=== PATIENT | male | born 1945 | race Caucasian/White ===

== ENCOUNTER 2016-10-10 09:31 | Inpatient (IN) | payer OTHER, MEDICARE ==
[~2016-10-10] VITALS: Ht 170.2 cm; Wt 147.2 kg
[2016-10-10] VITALS (39 sets, daily range): BP systolic 91–161; BP diastolic 39–65; PULSE 37–83; TEMP 36.6–36.8; O2SAT 87–100; BMI 48.0
[~2016-10-10 09:31] MED LIST: ACET-1311 PO; ALBUAER INH; ALL100 PO; ARNI60; ASPI81TA28 PO; CALC667C4 PO; CINA0.42 PO; DIGO0.122 PO; GABA10PO PO; INSUINJ4 SQ; MULT-513 PO; NVLGI SC; OXGN; POLY335025 PO; SIMV40TA4 PO; WARF5TAB90 PO; [UNRECOGNIZED DRUG - CODE] IV; [UNRECOGNIZED DRUG - OTHER] IV; [UNRECOGNIZED DRUG - OTHER] IV
--- NOTE | 2016-10-10 10:38 | DIAGNOSTIC IMAGING REPORT ---
CHEST ONE VIEW PORTABLE CLINICAL HISTORY: Fever. Weakness. COMPARISON STUDY: Chest radiograph June 28, 2015. FINDINGS: A vascular stent projecting over the right upper hemithorax is again noted. Elevation of the right hemidiaphragm is unchanged. Linear right basilar opacity is suggestive of atelectasis. Mild left basilar opacity favors atelectasis. Cardiomegaly is unchanged. There is no evidence of pulmonary edema. IMPRESSION: 1. No acute cardiopulmonary findings. 2. Linear bibasilar opacities which favor atelectasis Electronically signed by: Adin Mari M.D. 10/10/2016 10:36 AM
[2016-10-10] MEDS ORDERED: HEPARIN SOD (PORCINE) 1000 UNIT/ML 10 ML VIAL IV SCH (10:45)
[2016-10-10] MEDS ORDERED: INSU1.2I SC (10:49)
[2016-10-10] MEDS ORDERED: DOCU-94 PO (10:49)
[2016-10-10 10:53] LABS: BASO % 0.5 %; BASO ABS # 0.04 K/uL (0-0.2); COMPLETE YES; EOS % 3.4 %; HEMATOCRIT 33.8 % (42-52); IG% 0.1 %; LYMPH % 14.4 %; LYMPH ABS # 1.19 K/uL (1.2-3.4); MEAN CORPUSCULAR HEMOGLOBIN 30.1 pg (25-34); MEAN CORPUSCULAR HGB CONC 31.4 g/dl (32-36); MEAN PLATELET VOLUME 10.1 fL (7.4-10.4); MONO % 6.8 %; NEUT % 74.8 %; PLATELET COUNT 192 K/uL (130-400); RED BLOOD COUNT 3.52 M/uL (4.7-6.1); WHITE BLOOD COUNT 8.24 K/uL (4.8-10.8)
[2016-10-10 11:00] LABS: PROTHROMBIN TIME (PATIENT) 21.9 SECONDS (9.0-12.0)
[2016-10-10 11:03] LABS: ISTAT CREATININE 10.1 mg/dl (0.6-1.3); ISTAT HEMOGLOBIN 11.2 g/dl (14.0-18.0); ISTAT IONIZED CALCIUM 0.98 mmol/l (1.12-1.32)
[2016-10-10 11:36] LABS: ALKALINE PHOSPHATASE 57 U/L (45-117); ALT/SGPT 33 U/L (12-78); AST/SGOT 20 U/L (15-37); BLOOD UREA NITROGEN 85 mg/dl (7-18); BUN/CREATININE RATIO 7.7 (10-20); CALCIUM 8.9 mg/dl (8.5-10.1); CARBON DIOXIDE 31 mmol/L (21-32); CHLORIDE 93 mmol/L (98-107); CKMB/CK RATIO 3.6 (0-3.0); GLUCOSE 129 mg/dl (70-99); MAGNESIUM 2.7 mg/dl (1.8-2.4); POTASSIUM 5.8 mmol/L (3.5-5.1); SODIUM 136 mmol/L (136-145)
--- NOTE | 2016-10-10 11:36 | NEPHROLOGY CONSULTATION ---
DATE OF CONSULTATION: 10/10/2016 SUBJECTIVE: Mr. Cabrera is a 71-year-old gentleman well known to me. For the past year or so, I have been managing his outpatient dialysis care and providing a certain amount of his primary care needs. Mr. Cabrera has a longstanding history of poorly controlled adult onset diabetes mellitus. His diabetes has been associated with diabetic retinopathy, generalized atherosclerotic cardiovascular disease, and nephropathy which is presumably multifactorial. Additionally, he has a history of atrial fibrillation for which he has been on Coumadin therapy. He also has a history of presumed autonomic insufficiency. In the past, he has been on midodrine to help support his blood pressure. Mr. Cabrera has a history of chronic pulmonary disease. At least in part that is caused by or aggravated by his morbid obesity. He has a degree of cor pulmonale. His end-stage renal disease is likely multifactorial and related to pulmonary hypertension related to his pulmonary disease, as well as a general cardiorenal syndrome. He has been on maintenance dialysis since 2007, he was switched to my care about a year ago. Complications of his end-stage renal disease have included a secondary anemia, which is well controlled with erythrocyte stimulating agents. Additionally, he has secondary hyperparathyroidism which has been relatively well controlled as well. In the past, he has had multiple problems and complications of lower extremity wounds. He has been seen regularly in the wound clinic of [facility] for these lower extremity wounds. Recently, he seems to have been reasonably stable. He has not had an admission to this hospital for nearly 2 years. At one point it was suspected that he may have temporal arteritis when had marked decrease in his vision unilaterally. A temporal artery biopsy; however, did not support that diagnosis. His sedimentation rate also was only about 60. Mr. Cabrera has been reasonably stable over the course of the past year. He has had some occasional difficulties with vascular access and has been seen by Dr. Aguirre for reevaluation of his AV fistula. However, it has been stable of late with adequate flows to support his dialysis treatments. Dialysis treatments are uncomplicated. He has been fairly compliant with his diet therapy. He has also been reasonably compliant with medication therapy, although there have been some occasional periods where his pharmacy provider was late in getting his medications. With the above background, Mr. Cabrera was in his usual state of health. About a week ago, Dr. Gracia switched his insulin from Lantus insulin 50 units b.i.d. to Toujeo. It was the same dose of insulin. However, the delivery system was something that Mr. Cabrera was not used to. For at least 3 days he was not getting his regular dose of his long acting insulin. He was monitoring his blood sugars and using a sliding scale with NovoLog. Still, blood sugars were quite elevated. He denied having any true symptoms of hypoglycemia. His son figured out his insulin system for him about 24 hours ago, but nonetheless, Mr. Cabrera has remained somewhat weak. He denies polydipsia. He has minimal urine output, if any at all. Nonetheless, this morning, he felt weak, had a difficult time transferring into his wheelchair and was brought to the Emergency Room by family members. In the Emergency Room, he was awake and alert and capable of giving a history. Of note, is the fact that not infrequently when he presented to the dialysis unit, he did have a significant bradycardia. That would improve with his dialysis treatments. His serum potassium as an outpatient when measured on a routine basis has generally been within a very acceptable range. Other dialysis laboratory parameters have indicated that his hemoglobin is in a very acceptable range of 11.2. His phosphate is fairly controlled. As noted, his potassium is fairly controlled as well. His serum albumin is 3.9 g/dL, which is reasonably good for a dialysis patient, although slightly below where we would prefer to see it (4.0 g/dL). His hepatitis C antibody is negative. Hepatitis B surface antibody is measurable, and hepatitis B surface antigen is negative. Mr. Cabrera has also had intermittent urinary discharge of some bloody fluid. He is seen regularly by urology. He is due for a cystoscopy early this month. He does have a history of bladder cancer and has had a TURB in the past. Regular home medications include allopurinol 100 mg daily, aspirin 81 mg daily, calcium acetate 667 mg three with each meal, Coumadin, usually in the dose of 5 mg daily, but varied to keep his INR between 2 and 3, he takes Diatx Zn 1 daily, digoxin 0.125 mcg on alternate days (usually Monday, , and Monday), gabapentin 100 mg at bedtime, long acting insulin, currently Toujeo 50 units twice daily, NovoLog via sliding scale, polyethylene glycol 17 grams daily p.r.n., senna with docusate sodium 1 daily, Sensipar 60 mg daily, and simvastatin 40 mg at bedtime. ALLERGIES: No known medication allergies. His dialysis treatments are generally uncomplicated. He is dialyzed 3 times a week for 4 hours and 30 minutes on an Optiflux 200 dialyzer with a blood flow rate of 450 and dialysate flow rate of 800 mL per minute. His dialysate is a 2 potassium, 2 calcium, 1 magnesium bath with a sodium of 135 and bicarbonate of 37. His heparin is 2000 units IV at the beginning of each dialysis treatment. He gets Venofer 50 mg IV push once weekly. He is also on Mircera, which he gets approximately every 4 weeks. The remainder of his review of systems is unremarkable other than noted above, and the fact that he does have significant seborrheic dermatitis with flaky skin. He has a lot of dry skin on his lower extremities as well. PHYSICAL EXAMINATION: GENERAL: On physical examination when seen, Mr. Cabrera appeared as a morbidly obese, chronically ill gentleman who did not appear to be in any particular distress when seen. However, he had a dramatic weakness when he attempted to transfer from chair to bed. VITAL SIGNS: His heart rate when he presented was 39 and seemingly regular, but once on a monitor it varied from 40-55. (An EKG suggested he is in a junctional bradycardia, although it still may be a slow atrial fibrillation). His blood pressure 101/37. His respiratory rate is 20, with a pulse ox of 98% on 3 liters of oxygen via nasal cannula. SKIN: Shows normal skin turgor. He has some patchy irritated areas and minimally denuded areas on his lower extremities. He has a right upper arm AV fistula that seems to be functioning reasonably well. LYMPHATICS: Show no palpable lymphadenopathy. HEAD: Normal. EYES: Grossly normal. The ocular fundi were not examined. Extraocular movements are intact. EARS, NOSE, MOUTH AND THROAT: Unremarkable. His oral mucous membranes are moist. NECK: Supple. He has no obvious jugular venous distention, but the exam is limited by his body habitus. I hear no carotid bruits and there is no thyromegaly. CHEST: Clear to auscultation. Diaphragms are elevated related to his body habitus and positioning when examined. Breath sounds are diminished at the bases, but otherwise clear with no wheezes, rales or rhonchi. CARDIAC: Shows distant sounds. His rhythm seems regular and slow. There are no definite murmurs or gallops. ABDOMEN: Morbidly obese, it is nontender. There is no organomegaly or mass, but again the exam is limited by his body size. EXTREMITIES: Show no cyanosis or clubbing. He has trace lower extremity edema. Peripheral pulses are difficult to feel in his feet. He has changes of venous stasis dermatitis. He has a right upper arm AV fistula. NEUROLOGIC: Shows him to be globally weak, but there are no lateralizing changes. No laboratory work is available to date. ASSESSMENT: Mr. Cabrera is a 71-year-old gentleman with end-stage renal disease who has been on dialysis for about 8 years. He has insulin-dependent type 2 diabetes mellitus. There is a question of an autonomic neuropathy which he probably does have. He has atrial fibrillation, but frequently has bouts of a slow and more regular rhythm, as he seems to have this morning. This has never been documented to be related to hyperkalemia, although that has been suspected in the past. He presents now with generalized weakness after changing his insulin from Lantus to Toujeo. That was done with him getting essentially the same amount of long acting insulin. He has been monitoring his blood sugars and notes that they are higher. I suspect that that has a great deal to do with his current weakness. PLAN: Routine laboratory work. He should be placed on a monitored bed to make sure that he returns to his usual rate and rhythm. Will arrange for him to have his routine dialysis treatment today. He should continue on his regular medications, as listed above. No other suggestions at this point, but I will follow him with you and make further suggestions as his clinical course unfolds.
[2016-10-10] MEDS ORDERED: HYDROmorphone INJ 1 MG/ML SYR IV PRN (13:15)
[2016-10-10] MEDS ORDERED: ACETAMINOPHEN 325 MG TAB PO PRN (13:15)
[2016-10-10] MEDS ORDERED: ONDANSETRON INJ 2 MG/ML 2 ML VIAL IV PRN (13:15)
[2016-10-10] MEDS ORDERED: DOPamine 400MG / D5W 400 MG IV SCH (13:45)
--- NOTE | 2016-10-10 13:49 | EMERGENCY ROOM VISIT NOTE ---
History Report prepared by Arelyibberyl: Ashley Mcgovern Under the Supervision of: Dr. Jose Dc D.O. First contact with patient: 09:47 Chief Complaint: WEAKNESS Stated Complaint: WEAKNESS History of Present Illness The patient is a 71 year old male who presents to the Emergency Room with complaints of worsening weakness for the past 3 days. He is a dialysis patient and gets dialyzed on Mondays, Wednesdays and Fridays and comes to the ED from dialysis this morning, accompanied by Dr. Flaherty of Nephrology and his two sons. The patient was not able to be dialyzed because of his weakness and the last time he was dialyzed was Monday, 3 days ago. His sons report he admitted to feeling "dehydrated" last night. This morning the patient states "I cannot walk. I just don't have it in me". He reports for the past few days, his weakness has been worsening. He reports "I feel like I have no strength". According to Dr. Flaherty, he was switched from Lantus to Toujeo recently. The patient denies any recent fevers, cough or rhinorrhea. He denies any chest pain but admits to some chronic shortness of breath and reports he uses 3 Liters of Oxygen at home. The patient states his blood sugars were high yesterday, around 220. This morning his BSG was around 170. He notes his last bowel movement was last night and normal. The patient denies any headache, change in vision, nausea , vomiting, diarrhea, pain with urination, and melena. 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 A total of 10 systems reviewed and were otherwise negative. Past Medical & Surgical Medical Problems: (1) Atrial fibrillation with slow ventricular response (2) CONGESTIVE HEART FAILURE NOS (3) DIAB W OTH SPEC MANIFEST, TYPE II OR UNSPEC TYPE, NOT UNCNTR (4) Diabetes (5) Diabetic foot ulcer (6) Diabetic peripheral neuropathy associated with type 2 diabetes mellitus (7) Edema (8) Loss of sensation (9) MAL [place]ADE[place] BLADDER-TRIGONE (10) MORBID OBESITY (11) Obstructive sleep apnea (12) Peripheral vascular disease (13) RENAL FAILURE NOS Family History Patient reports no known family medical history. Social History Smoking Status: Never Smoker Drug Use: none Marital Status: Housing Status: lives with family Occupation Status: retired Current/Historical Medications Scheduled Allopurinol (Zyloprim *), 100 MG PO DAILY Aspirin (Aspirin Ec), 81 MG PO DAILY Calcium Acetate (Phoslo 667 Mg), 2,001 MG PO TIDM Cinacalcet (Sensipar), 60 MG PO DAILY Darbepoetin (Aranesp Albumin Free), every monday x 3 dos Digoxin (Lanoxin), 0.125 MG PO 3XWK Docusate Sodium (Colace), 1 CAP PO QAM Gabapentin (Bulk) (Gabapentin), 100 MG PO DAILY Insulin Aspart (Novolog), 0 SC WM Insulin Glargine (Toujeo Solostar), 60 UNITS SC BID Multivitamins/Minerals (Mvi With Minerals), 1 TAB PO DAILY Oxygen (Oxygen), 3 LITERS NA CONTINOUS Paricalcitol (Zemplar Inj), 2 MCG IV 3 TIMES A WEEK Polyethylene Glycol 3350 (Miralax), 17 GM PO 3XWK Simvastatin (Zocor), 40 MG PO QPM Warfarin Sodium (Coumadin), 5 MG PO HS Scheduled PRN Acetaminophen (Tylenol), 650 MG PO Q4 PRN for Mild Pain Calcium Acetate (Phoslo 667 Mg), 1-2 CAP PO UD PRN for WITH SNACKS Allergies Coded Allergies: No Known Allergies (Verified , 10/10/16) Physical Exam Vital Signs Date Time Temp Pulse Resp B/P Pulse Ox O2 Delivery O2 Flow Rate FiO2 10/10/16 12:42 39 14 132/39 98 Nasal Cannula 3.0 10/10/16 12:02 97 Nasal Cannula 3.0 10/10/16 11:40 41 19 98/35 97 Nasal Cannula 3.0 10/10/16 11:11 40 15 10/10/16 11:06 39 15 10/10/16 11:01 41 22 10/10/16 10:59 106/35 10/10/16 10:56 43 19 10/10/16 10:51 41 15 10/10/16 10:46 45 20 10/10/16 10:41 37 20 10/10/16 10:37 100/34 1/2/17 10:36 39 10/10/16 10:36 46 19 10/10/16 10:31 39 18 10/10/16 10:26 41 14 10/10/16 10:22 97/35 10/10/16 10:21 39 15 98 10/10/16 10:20 79/32 10/10/16 10:17 41 18 101/37 10/10/16 10:16 40 19 10/10/16 10:11 39 12 10/10/16 10:09 101/37 10/10/16 09:37 39 20 116/43 98 Nasal Cannula 3.0 Physical Exam GENERAL: The patient is sitting up in bed, alert, ill-appearing, disheveled, well nourished, no distress, non-toxic and on nasal canula. EYE EXAM: normal conjunctiva, PERRL and EOM's intact OROPHARYNX: no exudate, no erythema, lips, buccal mucosa, and tongue normal and mucous membranes are moist NECK: supple, no nuchal rigidity, no adenopathy, non-tender LUNGS: Course lung sounds at the bases. Normal chest wall mechanics HEART: Bradycardic heart rate with systolic ejection murmur, S1 normal and S2 normal ABDOMEN: abdomen soft, non-tender, normo-active bowel sounds, no masses, no rebound or guarding. BACK: Back is symmetrical on inspection and there is no deformity, no midline tenderness, no CVA tenderness. SKIN: no rashes and no bruising UPPER EXTREMITIES: Fistula in right upper extremity. LOWER EXTREMITIES: Scant pitting edema with ulcer on left second toe. NEURO EXAM: Normal sensorium with limited mobility, able to stand and pivot, no focal weakness or upper or lower extremities. Cranial nerves II-XII grossly intact, normal speech. No drift. Finger to nose intact. Gross sensation intact. Medical Decision & Procedures ER Provider Diagnostic Interpretation: This X-Ray was reviewed and interpreted by myself and the radiologist. CHEST ONE VIEW PORTABLE IMPRESSION: 1. No acute cardiopulmonary findings. 2. Linear bibasilar opacities which favor atelectasis Electronically signed by: Adin Mari M.D. 10/10/2016 10:36 AM Laboratory Results 10/10/16 10:35 Red Blood Count 3.52, Mean Corpuscular Volume 96.0, Mean Corpuscular Hemoglobin 30.1, Mean Corpuscular Hemoglobin Concent 31.4, Mean Platelet Volume 10.1, Neutrophils (%) (Auto) 74.8, Lymphocytes (%) (Auto) 14.4, Monocytes (%) (Auto) 6.8, Eosinophils (%) (Auto) 3.4, Basophils (%) (Auto) 0.5, Neutrophils # (Auto) 6.16, Lymphocytes # (Auto) 1.19, Monocytes # (Auto) 0.56, Eosinophils # (Auto) 0.28, Basophils # (Auto) 0.04 10/10/16 10:35 Test 10/10/16 10:35 10/10/16 10:47 10/10/16 10:51 White Blood Count 8.24 K/uL (4.8-10.8) Red Blood Count 3.52 M/uL (4.7-6.1) Hemoglobin 10.6 g/dL (14.0-18.0) Hematocrit 33.8 % (42-52) Mean Corpuscular Volume 96.0 fL (80-100) Mean Corpuscular Hemoglobin 30.1 pg (25-34) Mean Corpuscular Hemoglobin Concent 31.4 g/dl (32-36) Platelet Count 192 K/uL (130-400) Mean Platelet Volume 10.1 fL (7.4-10.4) Neutrophils (%) (Auto) 74.8 % Lymphocytes (%) (Auto) 14.4 % Monocytes (%) (Auto) 6.8 % Eosinophils (%) (Auto) 3.4 % Basophils (%) (Auto) 0.5 % Neutrophils # (Auto) 6.16 K/uL (1.4-6.5) Lymphocytes # (Auto) 1.19 K/uL (1.2-3.4) Monocytes # (Auto) 0.56 K/uL (0.11-0.59) Eosinophils # (Auto) 0.28 K/uL (0-0.5) Basophils # (Auto) 0.04 K/uL (0-0.2) RDW Standard Deviation 60.6 fL (36.4-46.3) RDW Coefficient of Variation 17.3 % (11.5-14.5) Immature Granulocyte % (Auto) 0.1 % Immature Granulocyte # (Auto) 0.01 K/uL (0.00-0.02) Prothrombin Time 21.9 SECONDS (9.0-12.0) Prothromb Time International Ratio 2.0 (0.9-1.1) Estimated GFR () 5.4 Estimated GFR (Non- 4.7 BUN/Creatinine Ratio 7.7 (10-20) Calcium Level 8.9 mg/dl (8.5-10.1) Magnesium Level 2.7 mg/dl (1.8-2.4) Total Bilirubin 0.3 mg/dl (0.2-1) Direct Bilirubin 0.1 mg/dl (0-0.2) Aspartate Amino Transf (AST/SGOT) 20 U/L (15-37) Alanine Aminotransferase (ALT/SGPT) 33 U/L (12-78) Alkaline Phosphatase 57 U/L (45-117) Total Creatine Kinase 120 U/L (39-308) Creatine Kinase MB 4.3 ng/ml (0.5-3.6) Creatine Kinase MB Ratio 3.6 (0-3.0) Total Protein 7.1 gm/dl (6.4-8.2) Albumin 3.4 gm/dl (3.4-5.0) Thyroid Stimulating Hormone (TSH) 5.380 uIu/ml (0.300-4.500) Digoxin Level 0.7 ng/ml (0.8-2.0) Bedside Lactic Acid Venous 1.66 mmol/L (0.90-1.70) Bedside Hemoglobin 11.2 g/dl (14.0-18.0) Bedside Hematocrit 33 % (42-52) Bedside Sodium 134 mEq/L (135-144) Bedside Potassium 6.0 mEq/L (3.3-5.0) Bedside Chloride 92 mEq/L (101-112) Bedside Total CO2 31 mEq/l (24-31) Anion Gap 18.0 mmol/L (16-25) Bedside Blood Urea Nitrogen 90 mg/dl (7-18) Bedside Creatinine 10.1 mg/dl (0.6-1.3) Bedside Glucose (other) 130 mg/dl (70-99) Bedside Ionized Calcium (Macarena) 0.98 mmol/l (1.12-1.32) Laboratory results per my review. ECG Indication: weakness Rate (beats per minute): 40 Rhythm: junctional (bradycardia) Findings: [facility] ED Course ED COURSE: Vital signs were reviewed and showed the patient is bradycardic. The patients medical record was reviewed The above diagnostic studies were performed and reviewed. ED treatments and interventions as stated above. 0947: The patient was evaluated in room C4. A complete history and physical examination was performed. 1145: Upon reevaluation, the patient is resting comfortably. I discussed my findings with the patient and he understands and agrees with the treatment plan. Based on the patients age, coexisting illnesses, exam and lab findings the decision to treat as an inpatient was made. The patient remained stable while under my care. The patient will be evaluated for further management. 1149: I discussed the patients case with Dr. Wiley [facility] Hospitalist. The patient will be further evaluated. Medical Decision Differential Diagnosis includes but is not limited to dehydration, stroke, anemia, hypoglycemia, hyponatremia, hypernatremia, urinary tract infection, pneumonia, bronchitis, sepsis, gastroenteritis, additional abdominal pathology, metabolic abnormalities and infections. Patient is a 71-year-old male who presents the ER for diffuse weakness associated with fluctuation in his blood sugars. He is an insulin-dependent diabetic on dialysis. Upon presentation Dr. Flaherty was at bedside. Patient notes that he has been unable to ambulate due to diffuse weakness. His blood sugars have been fluctuating for the past 48 hours. This morning they were normal in the 200s. Labs show no significant leukocytosis or anemia. His anemia does appear to be chronic. BMP shows a potassium of 5.8 along with a creatinine of 10. He is due for dialysis today. Krystina is aware of this and notified me of this. He also noted that his normal heart rate is in the 40s. Troponin was detected but not positive. He denies a chest pain shortness of breath. Heart rate is in the 30s to low 40s. He is in a junctional rhythm. He normally has A. fib. Patient has no other complaints at this time. He was monitored closely in the ER and admitted to internal medicine for diffuse weakness associated with bradycardia although this appears to be constant. I am uncertain if this is Edgar secondary to his potassium because it is not that elevated 5.8. I held on any treatment as he will need dialysis. Consults Time Called: [id number] Consulting Physician: Dr. Wiley [facility] Hospitalist Returned Call: [phone] I discussed the patients case with Dr. Wiley [facility] Hospitalist. The patient will be further evaluated. Impression Primary Impression: Weakness Additional Impressions: Hyperkalemia, Ambulatory dysfunction Scribe Attestation The scribe's documentation has been prepared under my direction and personally reviewed by me in its entirety. I confirm that the note above accurately reflects all work, treatment, procedures, and medical decision making performed by me. Departure Information Dispostion Being Evaluated By Hospitalist Referrals Sarthak Gracia M.D. (PCP) Patient Instructions A Signature Page, My [facility]
[2016-10-10] MEDS ORDERED: DOPamine 400MG / D5W 400 MG IV PRN (14:00)
--- NOTE | 2016-10-10 14:08 | History and Physical ---
History & Physical Date & Time of Service: Oct 10, 2016 at 13:26 Chief Complaint: Weakness Primary Care Physician: Sarthak Gracia M.D. History of Present Illness Source: patient, hospital records 71yo male with ESRD on HD M// at [facility], followed by Dr. Flaherty, as well as T2DM, PAD, JORJE, chronic resp failure on home O2, chronic diastolic CHF, and atrial fibrillation who presented today with significant weakness starting Monday. He was in his usual state of health until the weekend when his legs became very weak to the point of not being able to stand or walk. He normally can walk about 50-60 feet with the aid of a walker. He otherwise denies any chest pain, sob, dyspnea with exertion, orthopnea, PND, fevers, chills, sweats, sore throat , vomiting, diarrhea, myalgias, arthralgias, or recent illness(es). He denies any sick contacts. Denies any falls despite the weakness. He denies focal motor weakness of the arms or legs (does have baseline mild weakness of the left leg from childhood polio but denies any recent change in this). He has had some blurry vision in the last few days. He reports that he does NOT make any urine on a chronic basis. He takes digoxin three days a week on //Monday and has had all of his doses as prescribed. The only other change in his health was that of his insulin. His PCP recently changed his Lantus to Toujeo and he was supposed to take the latter twice daily. However, the Toujeo was in pen form and he did not know how to manipulate the pen. Therefore, he went several days this past week without any long-acting insulin. His son showed him how to use the pen and he did resume the Toujeo yesterday. FSBS's have been in the upper 100s to 200s since restarting the Toujeo. Upon ER presentation today the patient was noted to have mildly low BP and a very slow heart rate of about 40 BPM. EKG showed (my interpretation) either junctional rhythm vs a slow a. fib. At that point we were contacted for admission. Initial labs showed a serum potassium of [address] Flaherty was consulted to perform hemodialysis today. Past Medical/Surgical History PMH: 1. ESRD on HD, Mon/Mon/Monday 2. chronic diastolic CHF 3. T2DM with neuropathy 4. morbid obesity 5. PAD 6. atrial fibrillation on chronic coumadin 7. history of bladder cancer 8. chronic respiratory failure on home oxygen, 3 L 9. anemia of chronic kidney disease 10. secondary hyperparathyroidism 11. chronic lower extremity wounds 12. polio as a child affecting the left leg PSH: 1. AV fistula creation, right arm 2. history of TURBT for bladder cancer 3. history of right subclavian artery stenosis s/p stent by Dr. Aguirre Family History mother, about age 70, some form of aortic disease? also had HTN father age 88yo from acute renal failure; also had CAD w/ GA Social History Smoking Status: Never Smoker Smokeless Tobacco Use: No Alcohol Use: previous - quit 35 years ago Drug Use: none Marital Status: Housing status: lives with family (, daughter, grand-daughter, son-in-law near [place]) Occupational Status: retired Immunizations History of Influenza Vaccine: Unknown History of Tetanus Vaccine?: Unknown History of Pneumococcal: Unknown History of Hepatitis B Vaccine: Unknown Multi-Drug Resistant Organisms History of MDRO: No Allergies Coded Allergies: No Known Allergies (Verified , 10/10/16) Home Medications Scheduled Allopurinol (Zyloprim *), 100 MG PO DAILY Aspirin (Aspirin Ec), 81 MG PO DAILY Calcium Acetate (Phoslo 667 Mg), 2,001 MG PO TIDM Cinacalcet (Sensipar), 60 MG PO DAILY Darbepoetin (Aranesp Albumin Free), every monday x 3 dos Digoxin (Lanoxin), 0.125 MG PO 3XWK Docusate Sodium (Colace), 1 CAP PO QAM Gabapentin (Bulk) (Gabapentin), 100 MG PO DAILY Insulin Aspart (Novolog), 0 SC WM Insulin Glargine (Toujeo Solostar), 60 UNITS SC BID Multivitamins/Minerals (Mvi With Minerals), 1 TAB PO DAILY Oxygen (Oxygen), 3 LITERS NA CONTINOUS Paricalcitol (Zemplar Inj), 2 MCG IV 3 TIMES A WEEK Polyethylene Glycol 3350 (Miralax), 17 GM PO 3XWK Simvastatin (Zocor), 40 MG PO QPM Warfarin Sodium (Coumadin), 5 MG PO HS Scheduled PRN Acetaminophen (Tylenol), 650 MG PO Q4 PRN for Mild Pain Calcium Acetate (Phoslo 667 Mg), 1-2 CAP PO UD PRN for WITH SNACKS Review of Systems Constitutional: + fatigue, + weakness, No chills, No fever, No sweats, No weight loss Eyes: + worsening of vision (blurry for a few days), No eye pain ENT: No nasal symptoms, No sore throat Respiratory: No cough, No dyspnea on exertion, No shortness of breath, No wheezing Cardiovascular: No PND, No chest pain, No edema, No orthopnea, No palpitations Abdomen: No GI bleeding, No constipation, No diarrhea, No nausea, No pain, No vomiting Musculoskeletal: No joint pain, No muscle pain Genitourinary - Male: No penile discharge Neurologic: + numbness/tingling (chronic, feet/hands), + weakness, No balance problems Psychiatric: + depression symptoms Endocrine: + fatigue Hematologic / Lymphatic: No clotting problems Integumentary: + color change (both legs - [facility]) Physical Exam Vital Signs Date Time Temp Pulse Resp B/P Pulse Ox O2 Delivery O2 Flow Rate FiO2 10/10/16 12:42 39 14 132/39 98 Nasal Cannula 3.0 10/10/16 12:02 97 Nasal Cannula 3.0 10/10/16 11:40 41 19 98/35 97 Nasal Cannula 3.0 10/10/16 11:11 40 15 10/10/16 11:06 39 15 10/10/16 11:01 41 22 10/10/16 10:59 106/35 10/10/16 10:56 43 19 10/10/16 10:51 41 15 10/10/16 10:46 45 20 10/10/16 10:41 37 20 10/10/16 10:37 100/34 10/10/16 10:36 39 10/10/16 10:36 46 19 10/10/16 10:31 39 18 10/10/16 10:26 41 14 10/10/16 10:22 97/35 10/10/16 10:21 39 15 98 10/10/16 10:20 79/32 10/10/16 10:17 41 18 101/37 10/10/16 10:16 40 19 10/10/16 10:11 39 12 10/10/16 10:09 101/37 10/10/16 09:37 39 20 116/43 98 Nasal Cannula 3.0 General Appearance: no apparent distress, + obese Head: normocephalic, atraumatic Eyes: PERRL ENT: hearing grossly normal, TMs normal, pharynx normal Neck: supple, no adenopathy, no JVD, + thyroid abnormalities (?thyroid nodule, about 1cm?) Respiratory/Chest: lungs clear, no respiratory distress, no accessory muscle use Cardiovascular: no gallop, normal peripheral pulses, + bradycardia, + systolic murmur (2/6 LSB) Abdomen/GI: normal bowel sounds, non tender, soft, no organomegaly Back: + abnormal inspection (lipoma vs cyst left back) Extremities/Musculoskelatal: + pedal edema (trace-1+ b/l ), + pertinent finding (severe stasis changes b/l shins; right leg is modestly larger than the left leg ) Neurologic/Psych: alert, oriented x 3, + motor weakness (LLE - chronic, about 4 /5 strength; RUE, RLE, and LUE with 5/5 strength; no facial droop) Skin: + pertinent finding (shallow ulceration right wilson; small amount of nonpurulent discharge; multiple other areas of xerosis, occasional excoriation/ skin opening - on both shins) AF fistula with + thrill and bruit, right upper arm Diagnostics Laboratory Results Results Past 24 Hours Test 10/10/16 10:35 10/10/16 10:47 10/10/16 10:51 Range/Units White Blood Count 8.24 4.8-10.8 K/uL Red Blood Count 3.52 4.7-6.1 M/uL Hemoglobin 10.6 14.0-18.0 g/dL Hematocrit 33.8 42-52 % Mean Corpuscular Volume 96.0 80-100 fL Mean Corpuscular Hemoglobin 30.1 25-34 pg Mean Corpuscular Hemoglobin Concent 31.4 32-36 g/dl Platelet Count 192 130-400 K/uL Mean Platelet Volume 10.1 7.4-10.4 fL Neutrophils (%) (Auto) 74.8 % Lymphocytes (%) (Auto) 14.4 % Monocytes (%) (Auto) 6.8 % Eosinophils (%) (Auto) 3.4 % Basophils (%) (Auto) 0.5 % Neutrophils # (Auto) 6.16 1.4-6.5 K/uL Lymphocytes # (Auto) 1.19 1.2-3.4 K/uL Monocytes # (Auto) 0.56 0.11-0.59 K/uL Eosinophils # (Auto) 0.28 0-0.5 K/uL Basophils # (Auto) 0.04 0-0.2 K/uL RDW Standard Deviation 60.6 36.4-46.3 fL RDW Coefficient of Variation 17.3 11.5-14.5 % Immature Granulocyte % (Auto) 0.1 % Immature Granulocyte # (Auto) 0.01 0.00-0.02 K/uL Prothrombin Time 21.9 9.0-12.0 SECONDS Prothromb Time International Ratio 2.0 0.9-1.1 Sodium Level 136 136-145 mmol/L Potassium Level 5.8 3.5-5.1 mmol/L Chloride Level 93 98-107 mmol/L Carbon Dioxide Level 31 21-32 mmol/L Anion Gap 12.0 18.0 16-25 mmol/L Blood Urea Nitrogen 85 7-18 mg/dl Creatinine 10.00 0.60-1.40 mg/dl Estimated GFR () 5.4 Estimated GFR (Non- 4.7 BUN/Creatinine Ratio 7.7 10-20 Random Glucose 129 70-99 mg/dl Calcium Level 8.9 8.5-10.1 mg/dl Magnesium Level 2.7 1.8-2.4 mg/dl Total Bilirubin 0.3 0.2-1 mg/dl Direct Bilirubin 0.1 0-0.2 mg/dl Aspartate Amino Transf (AST/SGOT) 20 15-37 U/L Alanine Aminotransferase (ALT/SGPT) 33 12-78 U/L Alkaline Phosphatase 57 45-117 U/L Total Creatine Kinase 120 39-308 U/L Creatine Kinase MB 4.3 0.5-3.6 ng/ml Creatine Kinase MB Ratio 3.6 0-3.0 Troponin I 0.036 0-0.045 ng/ml Total Protein 7.1 6.4-8.2 gm/dl Albumin 3.4 3.4-5.0 gm/dl Digoxin Level 0.7 0.8-2.0 ng/ml Bedside Lactic Acid Venous 1.66 0.90-1.70 mmol/L Bedside Hemoglobin 11.2 14.0-18.0 g/dl Bedside Hematocrit 33 42-52 % Bedside Sodium 134 135-144 mEq/L Bedside Potassium 6.0 3.3-5.0 mEq/L Bedside Chloride 92 101-112 mEq/L Bedside Total CO2 31 24-31 mEq/l Bedside Blood Urea Nitrogen 90 7-18 mg/dl Bedside Creatinine 10.1 0.6-1.3 mg/dl Bedside Glucose (other) 130 70-99 mg/dl Bedside Ionized Calcium (Macarena) 0.98 1.12-1.32 mmol/l Microbiology Results 10/10/16 Blood Culture, Received Pending 10/10/16 Blood Culture, Received Pending Diagnostic Radiology cxr - portable: IMPRESSION: 1. No acute cardiopulmonary findings. 2. Linear bibasilar opacities which favor atelectasis EKG EKG - my interpretation - bradycardia, rate of about 40; left axis deviation; LAFB; either junctional rhythm vs slow a. fib; no acute ST changes Impression Assessment and Plan 71yo male with multiple medical problems including ESRD on HD M/W/F, T2DM, a. fib on chronic coumadin, PAD, morbid obesity, chronic respiratory failure on home O2 - presenting with severe weakness starting about 2-3 days ago. I believe that his weakness is likely related to his severe bradycardia with resulting poor cardiac output. I do not see any source of infection on exam or by way of history. 1. severe bradycardia in the setting of chronic a. fib and hyperkalemia - I cannot tell based on the monitor strips in the ER and the initial EKG if this is slow a. fib vs a junctional rhythm. [id number], I believe that his symptoms are from the severe bradycardia. STAT digoxin level returned <1 and thus he is not dig toxic. However, I will defer to cardiology / critical care, in light of the bradycardia, whether digibind is warranted in this setting. Plan - admit to ICU; consult cardiology & critical care start dopamine drip to maintain MAP >65 and maintain adequate heart rate hold coumadin in anticipation of likely permanent pacemaker placement hemodialysis now due to the hyperkalemia check TSH to be complete serial troponins to exclude ACS I appreciate Dr. Donald Siegel's consultation from the [facility] Cardiology team and will defer other recommendations to him. 2. hyperkalemia - to undergo hemodialysis now. 3. ESRD on HD M/W/ - Dr. Flaherty has already seen the patient and HD will be initiated urgently. Continue phosphate binders. Other medications per Dr. Flaherty. 4. T2DM - resume lantus 50 units BID + novolog with correction factor of 15 and carb ratio of 1 units / 5 grams of carbs. Adjust as necessary. BSGs ac/hs. 5. PAD - continue aspirin therapy. 6. a. fib on chronic coumadin - hold the latter in anticipation of pacemaker placement. 7. chronic respiratory failure on home O2 - continue NC O2 3 liters. No evidence of complicating CHF or pneumonia by way of exam or x-ray. 8. chronic diastolic CHF - no evidence of decompensation. 9. FEN - renal/T2DM diet; fluid restrict to 1500cc/day. BMP in am. 10. DVT proph - INR is 2 due to recent coumadin use. 11. hyperlipidemia - statin agent. CPK, of note, is normal. 12. chronic lower extremity wounds - dressings were removed by me in the ER and I don't see any superimposed infectious process, cellulitis, or infected ulcer. Sandra Childers from wound care will be consulted for dressing management. Other: full code, level 1 critical care time about 70 minutes Level of Care Critical Care Advanced Directives Existing Advance Directive: No Existing Living Will: No Existing Power of Offset Plate Preparation Supervisor: No Resuscitation Status FULL RESUSCITATION VTE Prophylaxis VTE Risk Assessment Done? Y/N: Yes Risk Level: Moderate Given or contraindicated: Warfarin (Coumadin) Note Total Time: Critical Care 30 - 74 minutes Additional Copies To Tin Flaherty M.D.; Sarthak Gracia M.D. Donald Siegel D.O.
[2016-10-10] MEDS ORDERED: DEXTROSE 50% 50 ML SYR IV PRN (14:30)
[2016-10-10] MEDS ORDERED: GLUCAGON FOR INJ 1 MG VIAL SQ PRN (14:30)
[2016-10-10] MEDS ORDERED: GLUCOSE 40% GEL 15 GM TUBE PO PRN (14:30)
[2016-10-10] MEDS ORDERED: GLUCOSE 10 TABS/TUBE PO PRN (14:30)
[2016-10-10] MEDS ORDERED: DOPamine 400MG / 250ML D5W ONE (14:36)
--- NOTE | 2016-10-10 15:00 | Critical Care Consultation ---
Critical Care Consultation Date of Consultation: Oct 10, 2016. Attending Physician: Tin Coronado MD History of Present Illness This is a 71yo male with a long standing history of diabetes mellitus requiring 3x/wk maintenance dialysis since 2007 and known A. sofia. He recently underwent a change in his DM medications by Dr. Gracia; started Toujeo from Lantus 50u BID. He states he did not fully understand how to work this system; and therefore he went without his long acting insulin for approx. 3 days. He attempted to cover the distance with his Novolog but continued to have elevated blood sugars. About 24 hours ago his son was able to solve this problem and helped to deliver the new medication. He has felt under the weather since Monday; mainly complaining of weakness. He was awake and alert and brought to the ED today. Today in the ED, Mr. Cabrera was experiencing significant bradycardia with heart rates around 38. Cardiology was consulted and is planning on starting Dopamine in the ICU and a pace maker tomorrow morning; after his regularly scheduled dialysis occurs this afternoon. Nephrology has also been consulted and is familiar with Mr. Cabrera as an outpt. They are currently recommending dialysis now with no medication changes currently. This is the first admission for this pt in many years. Now in the ICU, Mr. Cabrera is complaining of 4/10 pain on his butt and is requesting a doughnut to sit on to relieve the pain that he often experiences. He is also complaining of being very hungry and wants his lunch. I have spoken with Dr. Serrano who stated he could eat and his lunch tray has been brought up. The pt is currently sitting in his wheelchair from the ED, as he is too weak to assist with moving to his bed despite it being lowered to the lowest level He refused to have staff help move him into his bed until a sling arrived. Pt denies chills, sweats, or fevers. He denied trouble seeing or dizziness. He denies chest pain, palipitations, cough, or shortness of breath. He says he always has trouble breathing and is on 3L of O2 at home. His effort in breathing is unchanged according to him. He denies nausea, vomitting , or abd pain. He states he has put out urine since 2007, but does have occasional bloody discharge. He states he has a recent bladder scope which may be the cause of this. He has a very distant history of bladder cancer with resection. Pt denies any new numbness or tingling, but does state he has known neuropathy in his hands and feet. Other History: He is end stage renal disease secondarily to poorly controlled DM 2; which has been complicated by retinopathy, atherosclerosis, nephropathy, and anemia. His anemia has required Mircera, which he gets approximately every 4 weeks ( erythrocyte stimulating agent). He has regular care in the [facility] wound clinic for lower extremity wounds. Mr. Cabrera is morbidly obese with pulmonary HTN which has complicated his chronic pulmonary disease. Mr. Cabrera has a long history of A. Fib to which he has been on Coumadin treatment. Previously treated with Midodrine for hypotension. He has secondary hyperparathyroidism which has been relatively well controlled as well. Past Medical/Surgical History Medical Problems: Atrial fibrillation with slow ventricular response CONGESTIVE HEART FAILURE NOS DIAB W OTH SPEC MANIFEST, TYPE II OR UNSPEC TYPE, NOT UNCNTR Diabetes Diabetic foot ulcer Diabetic peripheral neuropathy associated with type 2 diabetes mellitus Edema MAL [place] BLADDER-TRIGONE MORBID OBESITY Obstructive sleep apnea Peripheral vascular disease RENAL FAILURE NOS Surgical Problems: TURB Fistula (RUE) Fistula "Clean Out"/ patient Left Foot repair as teenager from Osteomyelitis Tonsillectomy Family History Patient reports no known family medical history. Father: [place] in his 50's; Diet Controlled DM Mother: "Aortic Embolism" at [facility] in her 70's Social History Smoking Status: Never Smoker Smokeless Tobacco Use: No Alcohol Use: none Drug Use: none Marital Status: Housing Status: lives with family Occupation Status: retired Allergies Coded Allergies: No Known Allergies (Verified , 10/10/16) Home Medications Scheduled Allopurinol (Zyloprim *), 100 MG PO DAILY Aspirin (Aspirin Ec), 81 MG PO DAILY Calcium Acetate (Phoslo 667 Mg), 2,001 MG PO TIDM Cinacalcet (Sensipar), 60 MG PO DAILY Darbepoetin (Aranesp Albumin Free), every monday x 3 dos Digoxin (Lanoxin), 0.125 MG PO 3XWK Docusate Sodium (Colace), 1 CAP PO QAM Gabapentin (Bulk) (Gabapentin), 100 MG PO DAILY Insulin Aspart (Novolog), 0 SC WM Insulin Glargine (Toujeo Solostar), 60 UNITS SC BID Multivitamins/Minerals (Mvi With Minerals), 1 TAB PO DAILY Oxygen (Oxygen), 3 LITERS NA CONTINOUS Paricalcitol (Zemplar Inj), 2 MCG IV 3 TIMES A WEEK Polyethylene Glycol 3350 (Miralax), 17 GM PO 3XWK Simvastatin (Zocor), 40 MG PO QPM Warfarin Sodium (Coumadin), 5 MG PO HS Scheduled PRN Acetaminophen (Tylenol), 650 MG PO Q4 PRN for Mild Pain Calcium Acetate (Phoslo 667 Mg), 1-2 CAP PO UD PRN for WITH SNACKS Current Inpatient Medications Current Inpatient Medications Medications (Trade) Dose Ordered Sig/Katiuska Route Start Time Stop Time Status Last Admin Dose Admin Acetaminophen (Tylenol Tab) 650 mg Q4H PRN PO 10/10/16 13:15 11/09/16 13:14 Ondansetron HCl (Zofran Inj) 4 mg Q6H PRN IV 10/10/16 13:15 11/09/16 13:14 Pantoprazole Sodium (Protonix Tab) 40 mg DAILY PO 10/11/16 09:00 11/10/16 08:59 Hydromorphone HCl (Dilaudid Inj) 0.5 mg Q4H PRN IV 10/10/16 13:15 10/24/16 13:14 Allopurinol (Zyloprim Tab) 100 mg DAILY PO 10/11/16 09:00 11/10/16 08:59 Aspirin (Ecotrin Tab) 81 mg DAILY PO 10/11/16 09:00 11/10/16 08:59 Calcium Acetate (Phoslo Cap) 1,334 mg TID PRN PO 10/10/16 13:15 11/09/16 13:14 Calcium Acetate (Phoslo Cap) 2,001 mg TIDM PO 10/10/16 16:30 11/09/16 17:59 Docusate Sodium (coLACE CAP) 100 mg QAM PO 10/11/16 09:00 11/10/16 08:59 Multivitamins/ Minerals (Multivitamin W/ Minerals Tab) 1 tab DAILY PO 10/11/16 09:00 11/10/16 08:59 Polyethylene (Miralax Powder Packet) 17 gm DAILY PO 10/11/16 09:00 11/10/16 08:59 Simvastatin (Zocor Tab) 40 mg QPM PO 10/10/16 21:00 11/09/16 20:59 Cinacalcet (Sensipar) 60 mg DAILY PO 10/11/16 09:00 11/10/16 08:59 Gabapentin (Neurontin Cap) 100 mg QAM PO 10/11/16 09:00 11/10/16 08:59 Insulin Glargine (Lantus Vial) 50 unit BID SC 10/10/16 21:00 11/09/16 20:59 Insulin Aspart SLIDING SCALE G... ACHS SC 10/10/16 16:00 11/09/16 15:59 Dopamine HCl/ Dextrose (DOPamine 400MG / D5W) 250 ml @ 0 mls/hr Q0M PRN IV 10/10/16 14:00 11/09/16 13:59 Glucose (Glucose 40% Gel) 15-30 GRAMS 15 GRAMS... UD PRN PO 10/10/16 14:30 11/09/16 14:29 Glucose (Glucose Chew Tab) 4-8 Tablets 4 Tabl... UD PRN PO 10/10/16 14:30 11/09/16 14:29 Dextrose (Dextrose 50% 50ML Syringe) 25-50ML OF 50% DW IV FOR... UD PRN IV 10/10/16 14:30 11/09/16 14:29 Glucagon (Glucagon Inj) 1 mg UD PRN SQ 10/10/16 14:30 11/09/16 14:29 Review of Systems 12 systems reviewed and negative other than previously mentioned in the HPI. Physical Exam Date Time Temp Pulse Resp B/P Pulse Ox O2 Delivery O2 Flow Rate FiO2 10/10/16 14:27 38 17 114/38 97 10/10/16 13:45 38 16 116/36 97 Room Air 10/10/16 13:44 39 10/10/16 12:42 39 14 132/39 98 Nasal Cannula 3.0 10/10/16 12:02 97 Nasal Cannula 3.0 10/10/16 11:40 41 19 98/35 97 Nasal Cannula 3.0 10/10/16 11:11 40 15 10/10/16 11:06 39 15 10/10/16 11:01 41 22 10/10/16 10:59 106/35 10/10/16 10:56 43 19 10/10/16 10:51 41 15 10/10/16 10:46 45 20 10/10/16 10:41 37 20 10/10/16 10:37 100/34 10/10/16 10:36 39 10/10/16 10:36 46 19 10/10/16 10:31 39 18 10/10/16 10:26 41 14 10/10/16 10:22 97/35 10/10/16 10:21 39 15 98 10/10/16 10:20 79/32 10/10/16 10:17 41 18 101/37 10/10/16 10:16 40 19 10/10/16 10:11 39 12 10/10/16 10:09 101/37 10/10/16 09:37 39 20 116/43 98 Nasal Cannula 3.0 Vital Signs - as noted Laboratory Data - as noted Physical Exam: General - NAD, sitting and eating meal in his wheel chair. Eyes - PERRL, EOMI No icterus, gaze conjugate ENT - Mucosa moist, no lesions or candidiasis Neck - Supple, trachea midline, no masses or lymphadenopathy, no JVD or bruits Lungs - No paradoxical chest wall movement, coarse breath sounds bilaterally, no wheezes, rales, or rhonchi Heart - Bradycardic with systolic ejection murmur noted, No rubs, clicks, or gallops appreciated Abdomen - obese abd, distended, normoactive BS present, no bruits noted, dull to percussion, nontender, no organomegaly Extremities - No edema, Erythema, flaking dry skin, non-tender to the level of midcalf, pedal pulses intact Neuro - A&OX3 Strength Upper extremities equal and appropriate bilaterally, lower extremities demonstrate strength R>L; left greatly diminished. Reflexes: Bicep, brachioradialis, patellar, and plantar normal and equal CN:PERRL, EOMI, no facial asymmetry, uvula/tongue midline Laboratory Results Last 24 Hours Test 10/10/16 10:35 10/10/16 10:47 10/10/16 10:51 White Blood Count 8.24 K/uL Red Blood Count 3.52 M/uL Hemoglobin 10.6 g/dL Hematocrit 33.8 % Mean Corpuscular Volume 96.0 fL Mean Corpuscular Hemoglobin 30.1 pg Mean Corpuscular Hemoglobin Concent 31.4 g/dl Platelet Count 192 K/uL Mean Platelet Volume 10.1 fL Neutrophils (%) (Auto) 74.8 % Lymphocytes (%) (Auto) 14.4 % Monocytes (%) (Auto) 6.8 % Eosinophils (%) (Auto) 3.4 % Basophils (%) (Auto) 0.5 % Neutrophils # (Auto) 6.16 K/uL Lymphocytes # (Auto) 1.19 K/uL Monocytes # (Auto) 0.56 K/uL Eosinophils # (Auto) 0.28 K/uL Basophils # (Auto) 0.04 K/uL RDW Standard Deviation 60.6 fL RDW Coefficient of Variation 17.3 % Immature Granulocyte % (Auto) 0.1 % Immature Granulocyte # (Auto) 0.01 K/uL Prothrombin Time 21.9 SECONDS Prothromb Time International Ratio 2.0 Sodium Level 136 mmol/L Potassium Level 5.8 mmol/L Chloride Level 93 mmol/L Carbon Dioxide Level 31 mmol/L Anion Gap 12.0 mmol/L 18.0 mmol/L Blood Urea Nitrogen 85 mg/dl Creatinine 10.00 mg/dl Estimated GFR () 5.4 Estimated GFR (Non- 4.7 BUN/Creatinine Ratio 7.7 Random Glucose 129 mg/dl Calcium Level 8.9 mg/dl Magnesium Level 2.7 mg/dl Total Bilirubin 0.3 mg/dl Direct Bilirubin 0.1 mg/dl Aspartate Amino Transf (AST/SGOT) 20 U/L Alanine Aminotransferase (ALT/SGPT) 33 U/L Alkaline Phosphatase 57 U/L Total Creatine Kinase 120 U/L Creatine Kinase MB 4.3 ng/ml Creatine Kinase MB Ratio 3.6 Troponin I 0.036 ng/ml Total Protein 7.1 gm/dl Albumin 3.4 gm/dl Thyroid Stimulating Hormone (TSH) 5.380 uIu/ml Digoxin Level 0.7 ng/ml Bedside Lactic Acid Venous 1.66 mmol/L Bedside Hemoglobin 11.2 g/dl Bedside Hematocrit 33 % Bedside Sodium 134 mEq/L Bedside Potassium 6.0 mEq/L Bedside Chloride 92 mEq/L Bedside Total CO2 31 mEq/l Bedside Blood Urea Nitrogen 90 mg/dl Bedside Creatinine 10.1 mg/dl Bedside Glucose (other) 130 mg/dl Bedside Ionized Calcium (Macarena) 0.98 mmol/l Diagnostic Results CHEST ONE VIEW PORTABLE CLINICAL HISTORY: S/P CENTRAL LINE line position COMPARISON STUDY: 10/10/2016 at 10:14 AM FINDINGS: Interval placement of a central catheter from a left internal jugular approach. Tip is at the juncture with the superior vena cava. Findings of early developing pulmonary edema. Unchanging pulmonary atelectasis right base. IMPRESSION: Left internal jugular catheter placed at the juncture of the left internal jugular vein and left subclavian vein. No evidence for pneumothorax. Early pulmonary edematous change Electronically signed by: Ivan Juarez M.D. 10/10/2016 4:42 PM CHEST ONE VIEW PORTABLE CLINICAL HISTORY: Fever. Weakness. COMPARISON STUDY: Chest radiograph June 28, 2015. FINDINGS: A vascular stent projecting over the right upper hemithorax is again noted. Elevation of the right hemidiaphragm is unchanged. Linear right basilar opacity is suggestive of atelectasis. Mild left basilar opacity favors atelectasis. Cardiomegaly is unchanged. There is no evidence of pulmonary edema. IMPRESSION: 1. No acute cardiopulmonary findings. 2. Linear bibasilar opacities which favor atelectasis Electronically signed by: Adin Mari M.D. 10/10/2016 10:36 AM Assessment & Plan Cardiovascular: Bradycardia * Heart rate improving since administration of Dopamine * Cardiology on Board * Plan for Pacer tomorrow * Titrate Dopamine to HR of 65 * Dig held now: Dig Level 0.7 * Left Jugular Introducer placed for medication administration on 10/10/16. A. Fib * Chronic use of Coumadin: Held now in anticipation of Pacer Hyperlipidemia: * Continue Statin; Zocor 40mg PO qPM : End State Renal Disease * Chronically Aneuric * Nephrology consult in place * Dialysis today * No medication changes suggested * Anuric at baseline * BUN/Cr: 85/10 * Cr previously: 8.7 on 08/21/16 Electrolytes: Hyperkalemia * Na 136; K 5.8; Cl 93; Ca 8.9; Mg 2.7 * Dialysis now * Follow serial labs Endocrine: * DM Type 2 * Glucose: 129 * Lantus 50U BID; SSI in place * Blood Sugar Checks per protocol * Hx of Hyperparathyroidism * Continue home medications * Cinacalcet 60mg with dinner * Calcium Acetate 667mg 1-2 times/day * TSH * 5.380 * Order Free T4 with AM labs Neuro: Neuropathy & Weakness * Neuropathy unchanged according to pt * Continue home medication: Gabapentin 100mg PO qDaily Respiratory: Chronic Respiratory Failure * 3L O2 used at home * CXR 10/10/2016: No acute cardiopulmonary findings, bibasilar opacities favored as atelectasis; No pneumothorax noted * Central line ok to use * Continue Monitoring Saturations Vascular: Peripheral Vascular Disease * Continue home ASA 81mg PO qDaily * Chronic lower extremity wounds: no infectious process noted * Wound Care consulted * Pt follows with wound care outpt GI: * T2DM diet; now * NPO after midnight for pacer * Per pt difficult defecation at home: * Continue Miralax 100mg qAM and Colace 17gm PO 3x/wk GI Prophylaxis: Not Applicable Heme: Chronic Anemia * H&H 10.6/33.8 * INR 2, PT 21.9 * No sign of overt bleeding at this time. * Follow Serial Labs DVT Prophylaxis: Chronic Coumadin use: INR 2 today; Held for pacer procedure today Access: * Left Hand Peripheral IV in place * L. IJ Introducer placed: 10/10/16 CCT: 60 Minutes; not including any billable procedures. Thank you for involving us in the care of this pt. Please view Dr. Vicente Serrano's addendum for further recommendations. I have personally evaluated and examined this patient. I agree with assessment and plan of Keith Damian PA-C. Patient without complaint during my evaluation, central venous access obtained for dopamine administration and possible temporary pacer. Becomes hemodynamically unstable.
--- NOTE | 2016-10-10 16:10 | CARDIOLOGY CONSULTATION ---
DATE OF CONSULTATION: 10/10/2016 CONSULTATION REQUESTED BY: Dr. Coronado. REASON FOR CONSULTATION: Symptomatic bradycardia. HISTORY OF PRESENT ILLNESS: Mr. Cabrera is a very pleasant 71-year-old gentleman who normally follows with myself as an outpatient for his longstanding history of persistent atrial fibrillation, on chronic Coumadin therapy. The patient states he was in his normal state of health up until approximately 3 days ago. He had family visiting for the holidays and was in good spirits. Unfortunately, he became very, very tired. He states he was significantly fatigued and had no energy. He actually needed help from his sons to get him upstairs and into the bathroom. This is very unusual for him. He states he just overall did not feel well. He denied any significant chest pain, shortness of breath, palpitations, lightheadedness, dizziness, or syncope. He states he just felt washed out. He states his symptoms continued to worsen throughout the weekend. Upon presentation to dialysis, today he is found to be significantly bradycardic with rates in the 30s and he is transferred to the Emergency Department. In the Emergency Department, he was also found to be significantly hyperkalemic with a potassium of 6. Today is his usual dialysis day. He was seen by nephrology and plan is to proceed with dialysis. Currently, the patient states he continues to feel just completely washed out. He does not have the energy to lift his legs or hardly lift his head in conversation. PAST SURGICAL HISTORY: 1. Right upper extremity fistula with multiple interventions. 2. Colonoscopy. 3. Cystoscopy. 4. Cataract surgery. 5. Tonsil and adenoidectomy as a child. 6. Foot surgery as a child. PAST MEDICAL HISTORY: 1. Atrial fibrillation persistent, on chronic Coumadin therapy. 2. Diabetes. 3. Diabetic neuropathy. 4. Foot ulcers. 5. End-stage renal disease, on hemodialysis for approximately 8 years now. 6. Peripheral vascular disease. 7. Morbid obesity. 8. Pulmonary hypertension. 9. Severe concentric left ventricular hypertrophy. 10. Chronic hypoxemia, on home O2. FAMILY HISTORY: Noncontributory. SOCIAL HISTORY: The patient denies any alcohol, tobacco or recreational drug use. He lives at home. REVIEW OF SYSTEMS: As per HPI, all other review of systems reviewed and negative at this time. MEDICATIONS AN OUTPATIENT: 1. Aspirin 81 mg daily. 2. Coumadin 5-10 mg daily as directed by the Coumadin Clinic. 3. Digoxin 0.125 mg on Tuesdays, , Saturdays. 4. Insulin as directed. 5. Sensipar daily. 6. Simvastatin 40 mg daily. 7. Gabapentin at bedtime. 8. Allopurinol daily. 9. DiatxZn daily. ALLERGIES: No known drug allergies. PHYSICAL EXAMINATION: VITALS: Temperature 36.3, pulse 38, respiratory rate 14, blood pressure 132/39. GENERAL: Awake, alert, oriented x3, mild distress with significant fatigue. HEENT: Normocephalic, atraumatic. Pupils equal, round, and reactive to light and accommodation. Extraocular muscles intact. Anicteric sclerae. Moist mucous membranes. NECK: No JVD, no bruit. CARDIOVASCULAR: Irregularly irregular and slow. Unable to appreciate any murmurs, rubs or gallops. PULMONARY: Clear to auscultation bilaterally. Scant rhonchi. No rales or wheezing. ABDOMEN: Bowel sounds x4, soft. No rebound, guarding, tenderness. No organomegaly. EXTREMITIES: +2 nonpitting edema bilaterally with chronic venous stasis changes. +1 pedal pulses bilaterally. SKIN: Warm and dry. TEST RESULTS: A 12-lead EKG performed in the Emergency Department independently reviewed at this time shows atrial fibrillation with slow ventricular response at 40 beats per minute, left anterior fascicular block. Compared to previous study, the rate has slowed significantly. LABORATORY STUDIES OF SIGNIFICANCE: INR of 2. Sodium 134, potassium 6, BUN 90, creatinine of 10.1. Chest x-ray was read as no acute cardiopulmonary findings, linear bibasilar opacity which favor atelectasis. IMPRESSION: 1. Symptomatic bradycardia. 2. Persistent atrial fibrillation, on chronic Coumadin therapy. 3. End-stage renal disease, on hemodialysis, requiring dialysis today. 4. Hyperkalemia. 5. Morbid obesity. 6. Pulmonary hypertension. RECOMMENDATIONS: It is my pleasure to see Mr. Cabrera in consultation today. Given the patient's presentation along with his significant bradycardia, I believe he is suffering from symptomatic bradycardia at this point. He will be dialyzed and my hope is that his rate will return to normal after his treatment. However, for hemodynamic support, in order to get him through his dialysis treatment, we will start him on dopamine 5 mcg and titrate upward as necessary to maintain a heart rate greater than 60 throughout the dialysis treatment. Should we be unable to titrate him off the dopamine afterwards and his heart rate remained significantly low and he remained symptomatic, then we will likely proceed with permanent pacemaker in the a.m. His Coumadin will be held tonight and possible further reversal can be given in the a.m. Otherwise, his digoxin will be held. I do not see any need for Digibind, given the fact that his level was subtherapeutic and will be monitored in the intensive care unit. Thank you very much for allowing me to participate in the care of your patient.
--- NOTE | 2016-10-10 16:44 | DIAGNOSTIC IMAGING REPORT ---
CHEST ONE VIEW PORTABLE CLINICAL HISTORY: S/P CENTRAL LINE line position COMPARISON STUDY: 10/10/2016 at 10:14 AM FINDINGS: Interval placement of a central catheter from a left internal jugular approach. Tip is at the juncture with the superior vena cava. Findings of early developing pulmonary edema. Unchanging pulmonary atelectasis right base. IMPRESSION: Left internal jugular catheter placed at the juncture of the left internal jugular vein and left subclavian vein. No evidence for pneumothorax. Early pulmonary edematous change Electronically signed by: Ivan Juarez M.D. 10/10/2016 4:42 PM
[2016-10-10] MEDS: CALCIUM ACETATE 667MG GELCAP PO SCH (17:05)
[2016-10-10] MEDS: INSULIN ASPART 100 UNITS/ML 3 ML PEN SC SCH ×2 (17:08→20:52)
[2016-10-10] MEDS: SIMVASTATIN 40 MG TAB PO SCH (20:47)
--- NOTE | 2016-10-10 20:59 | Procedure Note ---
Procedure Note Procedure Date Oct 10, 2016. Central Line Procedure time out: side/site verified, patient ID confirmed, sterile procedure used Consent obtained: written Time of procedure: 18:00 Performed by: physician under sheriff Indications: central drug admin. Prep: chlorhexadine prep, sterile drape, sterile procedures used Anesthesia: lidocaine 1% without epi Volume anesthetic (ml's): 2 Central line lumen: double Central line location: internal jugular (R) Additional details: ultrasound guidance, Selinger technique used CXR: no pneumothorax Complications: none Patient tolerated procedure: well Post-procedure vital signs: reviewed and stable Comments: 2 attempts were made by the physician under sheriff, Heather Damian, good blood return was noted however the wire was unable to be threaded into the vessel, a third attempt was done by myself, I was unable to thread the wire as well, and additional attempts were aborted. Procedure Note Procedure Date Oct 10, 2016. Central Line Procedure time out: side/site verified, patient ID confirmed, sterile procedure used Consent obtained: written Performed by: attending Indications: central drug admin. Prep: chlorhexadine prep, sterile drape, sterile procedures used Anesthesia: lidocaine 1% without epi Central line lumen: double Central line location: internal jugular (L) Additional details: ultrasound guidance, Selinger technique used, line sutured , good blood return CXR: appropriate position, no pneumothorax Patient tolerated procedure: well Post-procedure vital signs: reviewed and stable Comments: Mild difficulty was initially experienced when attempting to introduce the guidewire, upon the third attempt at introducing wire was successfully placed.
[2016-10-10] MEDS ORDERED: INSULIN GLARGINE SC SCH (21:00)
[2016-10-10] MEDS ORDERED: SODIUM CHLORIDE 0.65% NA SOLN 45 ML (OCEAN) ONE (21:23)
[2016-10-10] MEDS ORDERED: SODIUM CHLORIDE 0.65% NA SOLN 45 ML (OCEAN) PRN (21:30)
[2016-10-10] MEDS ORDERED: NURSING VERBAL MED ORDER ONE (23:45)
[2016-10-10] MEDS ORDERED: CALCIUM ACETATE 667MG GELCAP PO ONE (23:45)
[2016-10-11] VITALS (50 sets, daily range): BP systolic 81–148; BP diastolic 37–78; PULSE 50–81; TEMP 36.5–37; O2SAT 91–99; Ht 170.2 cm; Wt 147.2 kg
[2016-10-11 06:12] LABS: BASO % 0.4 %; BASO ABS # 0.03 K/uL (0-0.2); COMPLETE YES; EOS % 3.2 %; IG% 0.4 %; LYMPH % 11.8 %; LYMPH ABS # 0.99 K/uL (1.2-3.4); MEAN CELL VOLUME 95.4 fL (80-100); MEAN CORPUSCULAR HGB CONC 31.4 g/dl (32-36); MONO % 7.3 %; NEUT % 76.9 %; PLATELET COUNT 224 K/uL (130-400); RED BLOOD COUNT 3.67 M/uL (4.7-6.1); WHITE BLOOD COUNT 8.37 K/uL (4.8-10.8)
[2016-10-11 06:21] LABS: INR 1.9 (0.9-1.1); PROTHROMBIN TIME (PATIENT) 20.4 SECONDS (9.0-12.0)
[2016-10-11 07:11] LABS: BUN/CREATININE RATIO 5.5 (10-20); CALCIUM 8.4 mg/dl (8.5-10.1); CREATININE 6.5 mg/dl (0.60-1.40); POTASSIUM 5.1 mmol/L (3.5-5.1)
[2016-10-11] MEDS: CALCIUM ACETATE 667MG GELCAP PO SCH ×3 (07:15→16:38)
[2016-10-11] MEDS: GABAPENTIN 100 MG CAP PO SCH (07:54)
[2016-10-11] MEDS: CINACALCET 30 MG TAB PO SCH (07:54)
[2016-10-11] MEDS: ALLOPURINOL 100 MG TAB PO SCH (07:55)
[2016-10-11] MEDS: PANTOprazole SOD 40 MG TAB PO SCH (07:55)
[2016-10-11] MEDS: INSULIN ASPART 100 UNITS/ML 3 ML PEN SC SCH ×4 (07:56→21:00)
--- NOTE | 2016-10-11 08:39 | Clinical Documentation Query ---
CONI Arzate : CLINICAL DOCUMENTATION QUERY Patient is a 71 year old male admitted with bradycardia in the setting of ESRD and hyperkalemia. Documentation includes "chronic lower extremity wounds - dressings were removed by me in the ER and I don't see any superimposed infectious process, cellulitis, or infected ulcer." As wounds are potentially HAC's that are non-reimbursable conditions, explicit documentation of wound type and staging as appropriate on admission is of great importance. Wound clinic progress note from 10/07/16 (Malaika Marquez PA-C) include: SUBJECTIVE: Mr. Cabrera is well known to the wound clinic with recurrent venous stasis ulcerations in the face of chronic edema. The patient states right leg reopened approximately a week and a half ago and left second toe. The patient states, "longer than that, we cannot give a time." OBJECTIVE: The patient's vital signs are reviewed. Wound #1 to the left second toe measures 2 x 0.8 x 0.1, wound #2 to the right lower anterior leg, 9 x 5 x 0.1 and wound #3 left lower and medial leg 0.5 x 0.5 x 0.1. ASSESSMENT: Venous stasis ulcerations, bilateral lower extremities, stage II pressure ulcer, left second toe. In your clinical opinion is this patient being managed for: (x ) Venous stasis ulcers of left lower medial leg, right lower anterior leg, and a stage II pressure ulcer of the left second toe, all of which were POA. ( ) Other explanation of clinical findings (Please Explain) ( ) Unable to determine (Please Define) ( ) Need to Discuss ( ) Not Agree The medical record reflects the following clinical findings, treatment, and risk factors. Clinical Indicators: As above Treatment: WOCN consultation Risk Factors: Morbid obesity, age, ESRD, DM, chronic diastolic CHF, PVD Please clarify and document your clinical opinion in the progress notes and discharge summary. Terms such as "probable", "suspected", "likely", "questionable", "possible", or "still to be ruled out" are acceptable. IF IN AGREEMENT, YOU MUST DOCUMENT ABOVE DIAGNOSTIC STATEMENT IN DAILY PROGRESS NOTES AND DISCHARGE SUMMARY. This document is not part of the patient's record. Thank You, Vicente Andres, KELLEY [phone]
[2016-10-11] MEDS ORDERED: INSULIN GLARGINE SC SCH (09:00)
--- NOTE | 2016-10-11 09:59 | PROGRESS NOTE ---
DATE: 10/11/2016 SUBJECTIVE: Mr. Cabrera says that he is feeling relatively well this morning but still somewhat weak. He tolerated his dialysis treatment yesterday, but was supported with the use of dopamine to both increase his blood pressure as well as to increase his heart rate. He remains on a dopamine drip. His blood pressure has been stable. His heart rate has been stable in the 50s or higher. He currently has no symptoms of uremia and no symptoms of volume overload. His blood sugars have been somewhat elevated. Over the course of the past 12 hours it has been between 190 and 263. He denies having polydipsia. He makes very little urine. OBJECTIVE: GENERAL: On physical exam at the current time, Mr. Cabrera appears relatively comfortable. He was lying in bed in the semi-Riggins position. He did not appear to be in any respiratory distress. VITAL SIGNS: His temperature is 36.7. His current blood pressure is 130/46, his heart rate is 66 and irregularly irregular, respiratory rate is 20 and his pulse ox is 92% on 3 liters of oxygen via nasal cannula. SKIN: Shows normal skin turgor. He has no obvious rash. He has scars from prior surgical procedures including scars on his right antecubital fossa and right upper arm from the creation of his AV fistula and multiple dialysis needle track henry. LYMPHATICS: Show no palpable lymphadenopathy. HEAD: Grossly normal. EYES: Grossly normal. The ocular fundi were not examined. EARS, NOSE, MOUTH AND THROAT: All unremarkable. His oral mucous membranes are moist. NECK: Supple. There is no visible jugular venous distention, but the exam is limited by his body habitus. I hear no carotid bruit and there is no thyromegaly. CHEST: Shows elevated hemidiaphragms related to his body habitus. Breath sounds are diminished at the bases, but otherwise clear. CARDIAC: Shows distant sounds. His rhythm is irregular. I hear no definite murmur or gallop. ABDOMEN: Obviously obese but nontender. There is no obvious organomegaly or mass. EXTREMITIES: Show no cyanosis or clubbing. He has trace to 1+ lower extremity edema. Peripheral pulses are difficult to feel. There is a right upper arm AV fistula. NEUROLOGIC: Basically unremarkable. PERTINENT LABORATORY WORK: From today shows a white count of 8370 with 76.9% neutrophils, 11.8% lymphocytes, 7.3% monocytes, 3.2% eosinophils and 0.4% basophils. His hemoglobin is 11.0. His hematocrit 35.0. His platelet count is 224,000. His prothrombin time is 20.4 with an INR of 1.9. His digoxin level done yesterday was 0.7. Other clinical chemistries show a sodium of 134 mmol/L, potassium 5.1 mmol/L, chloride is 93 mmol/L, and CO2 content 32 mmol/L. His BUN is 36, his creatinine 6.5 after yesterday's dialysis. His blood sugar this morning was 250-263. His serum calcium is 8.4. His free T4 is 0.80. His TSH 5.380. His troponin was 0.032-0.036. Blood cultures were done and remain pending. His chest x-ray at the time of admission showed no acute cardiopulmonary findings. There are some linear bibasilar opacities consistent with atelectasis. Subsequent chest x-ray after the placement of a central line was otherwise unremarkable. ASSESSMENT: Mr. Cabrera has end-stage renal disease which is multifactorial and likely related to diabetes, vascular disease as well as a cardiorenal syndrome. He had been reasonably stable as an outpatient and felt quite well over the course of the past few months. During that time, it was obvious that he was occasionally bradycardic but for the most part was asymptomatic. Generally heart rates increased during the time he was on dialysis, although his blood pressure was low. He rarely had symptoms of orthostasis and had no falls or complications related to change in posture. However, he presented globally weak after a change in his insulin regimen. His blood sugars were obviously high and he believed that contributed to his weakness. Nonetheless, when here, his blood pressure was low and the intensive care team followup was necessary to support him through dialysis with dopamine. He remains on low dose dopamine to help with both his heart rate and his blood pressure. Apparently now a pacemaker is under significant consideration. Mr. Cabrera believes that that is to be done later today, although I do not see it definitely scheduled. Certainly he may benefit from it in general. PLAN: No change for now. Certainly if the pacemaker is done we will see how he does afterwards and he should be able to be tapered off his dopamine. No other immediate intervention other than to continue with his routine medications.
--- NOTE | 2016-10-11 10:43 | Critical Care Progress Note ---
Critical Care Progress Note Date of Service Oct 11, 2016. Attending Dr. Serrano Subjective Mr. Cabrera had a quiet night without event. He remains on his Dopamine infusion at 5mcg/kg/min. Over night there was attempt to wean back the dopamine but his heart rate fell below goal of 65, thus it was returned to back and has remained at the original rate of 5. It is expected that after his pacemaker implantation this morning, that it will be discontinued. Spoke with Dr. Siegel at rounds this morning. He confirmed that the plan to implant the pacemaker is unchanged and likely later this morning. Mr. Cabrera has remained NPO for this procedure. This morning Mr. Cabrera is complaining of a dry mouth and hunger pains. He is not happy that he is still NPO and his procedure has not occurred. He states his bowels have not moved since admission, he would like to have Miralax as soon as possible to help with this. He takes a bowel regimen at home to help chronically. He denies fever, chills, malaise, or increased work of breath/shortness of breath. He states he has no chest pain or palpitations. He denies nausea, vommiting, abd pain. He denies changes in numbness or tingling. His weakness is unchanged from yesterday. 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 Tip is at the juncture with the superior vena cava. Findings of early developing pulmonary edema. Unchanging pulmonary atelectasis right base. * IMPRESSION: Left internal jugular catheter placed at the juncture of the left internal jugular vein and left subclavian vein. No evidence for pneumothorax. Early pulmonary edematous change HOB up 30 degrees: Yes Chlorhexidine: No Cardiovascular: HR range 35-81, Sinus Mario; 2/6 Systolic ejection murmur present, No rubs, gallops, or clicks appreciated SBP 130 CV drips: Dopamine 5mcg/kg/min for bradycardia EKG: I have independently reviewed the report as well as the images dated findings: * Atrial fibrillation, Left anterior fascicular block, 60bpm, 414 QTc ECHO:None this admission Fluids/Renal: No fluids presently; Currently -3.2 L negative No Juan, Pt voiding Cr 0.36; BUN 36 GI/Nutrition: Obese abd, Normal active BS, Tympanic to percussion, Soft, NT, ND, without organomegaly NPO for procedure Feeding: Not applicable Prophylaxis:Not Indicated Endocrine: Last 24 hour glucose: 190-263 Insulin protocol: Not applicable; Drip: Not applicable TSH 5.38; Free T4: 0.80 Hematology: H&H ; plt 224 Coags: PT 20.4, INR 1.9 DVT prophylaxis: * Chronic Coumadin Use (Currently held) Therapeutic INR * SCDs Ordered Type and screen: Not currently indicated Skin/MSK: Moves all extremities, multiple scars on the thorax. PAD wounds, dry skin, and darkening of the calves noted. Infectious Disease: Tmax: 36.7 Afebrile WBC 8.37. Lactic Acid: N/A CVL 10/10/16: 9 Welsh Introducer to the Left IJ Antimicrobials: None Cultures: Blood: Pending Urine: None C. difficile toxin:N/A MRSA Screen: Negative Access: Right Hand Peripheral IV in place 9 Welsh Introducer line in L IJ placed 10/10/16 Arterial Line: Not Indicated Assessment & Plan Reason Critically Ill: Patient is an 71-year-old male who is transferred to the ICU for Bradycardia requiring pacemaker placement and Dopamine Infusion. PLAN: Neuro: Weakness * Improved since yesterday * No pain reported * Tylenol on chart if needed CV: Bradycardia * Placement planned today; Spoke with Dr. Siegel * Continue Dopamine infusion until after pacemaker placement * HR improved today, continue goal >65bpm Atrial Fibrillation: * Known Hx, A. Fib on EKG today * Coumadin held for procedure * Currently Therapeutic INR 1.9 Resp: Chronic Respiratory Failure * Continue 3L home O2 via Nasal Cannula * Saturations 96% * Continue Supplemental oxygen as required Fluids/Renal: * Dialysis Yesterday; 4L removed * Known DM2 on Dialysis MWF * Continue Fluid Restriction once diet resumed Electrolytes: * Na 134; K 5.1; Cl 93; Ca 8.4 * Follow serial PRP * Regular Dialysis tomorrow * Dr. Flaherty consulted: no change in management currently Endocrine: DM 2 * Accu-Checks per protocol, started insulin infusion for 2 blood sugars greater than 180 * Resume Lantus once diet is restarted * SSI with Novolog in place GI/Nutrition: * Continue NPO until after procedure * Provide pt with bowel regimen (No BM since Admission) * Miralax and Colace on chart ID: * No sign of infection noted * Follow fever curve * Blood Cultures pending Skin: * Wound care consult in place * No open draining wounds * Continue skin checks Heme: Chronic Anemia * Currently stable * Follow Daily CBC CCT: 37 Minutes; This time is exclusive of all separately billable procedures. Thank you for involving us in the care of this patient. Please refer to Dr. Vicente Serrano's addendum for further recommendations. I have personally evaluated and examined this patient. I agree with assessment and plan of Keith Damian PA-C. I saw the patient after placement of the permanent pacemaker which was successful. Patient was relatively hypotensive, this is likely secondary to opiate administration during the procedure for which he received some Narcan. Initially going to place patient on a small dose of phenylephrine to increase his mean arterial pressure, however his hypotension resolved prior to administration of the phenylephrine. Patient remained hemodynamically stable, was able to tolerate a diet and is stable for downgraded to telemetry status. Consults & Procedures Consultants: Nephrology: Dr. Flaherty Cardiology: Dr. Siegel Wound Care Data Medications: Current Inpatient Medications Medications (Trade) Dose Ordered Sig/[place] Route Start Time Stop Time Status Last Admin Dose Admin Acetaminophen (Tylenol Tab) 650 mg Q4H PRN PO 10/10/16 13:15 11/09/16 13:14 Ondansetron HCl (Zofran Inj) 4 mg Q6H PRN IV 10/10/16 13:15 11/09/16 13:14 10/11/16 01:38 4 MG Pantoprazole Sodium (Protonix Tab) 40 mg DAILY PO 10/11/16 09:00 11/10/16 08:59 10/11/16 07:55 40 MG Hydromorphone HCl (Dilaudid Inj) 0.5 mg Q4H PRN IV 10/10/16 13:15 10/24/16 13:14 Allopurinol (Zyloprim Tab) 100 mg DAILY PO 10/11/16 09:00 11/10/16 08:59 10/11/16 07:55 100 MG Aspirin (Ecotrin Tab) 81 mg DAILY PO 10/11/16 09:00 11/10/16 08:59 Calcium Acetate (Phoslo Cap) 1,334 mg TID PRN PO 10/10/16 13:15 11/09/16 13:14 Calcium Acetate (Phoslo Cap) 2,001 mg TIDM PO 10/10/16 16:30 11/09/16 17:59 10/10/16 17:05 2,001 MG Docusate Sodium (coLACE CAP) 100 mg QAM PO 10/11/16 09:00 11/10/16 08:59 Multivitamins/ Minerals (Multivitamin W/ Minerals Tab) 1 tab DAILY PO 10/11/16 09:00 11/10/16 08:59 Polyethylene (Miralax Powder Packet) 17 gm DAILY PO 10/11/16 09:00 11/10/16 08:59 Simvastatin (Zocor Tab) 40 mg QPM PO 10/10/16 21:00 11/09/16 20:59 10/10/16 20:47 40 MG Cinacalcet (Sensipar) 60 mg DAILY PO 10/11/16 09:00 11/10/16 08:59 10/11/16 07:54 60 MG Gabapentin (Neurontin Cap) 100 mg QAM PO 10/11/16 09:00 11/10/16 08:59 10/11/16 07:54 100 MG Insulin Aspart SLIDING SCALE G... ACHS SC 10/10/16 16:00 11/09/16 15:59 10/11/16 07:56 6 UNITS Dopamine HCl/ Dextrose (DOPamine 400MG / D5W) 250 ml @ 0 mls/hr Q0M PRN IV 10/10/16 14:00 11/09/16 13:59 10/11/16 01:39 26.1 MLS/HR Glucose (Glucose 40% Gel) 15-30 GRAMS 15 GRAMS... UD PRN PO 10/10/16 14:30 11/09/16 14:29 Glucose (Glucose Chew Tab) 4-8 Tablets 4 Tabl... UD PRN PO 10/10/16 14:30 11/09/16 14:29 Dextrose (Dextrose 50% 50ML Syringe) 25-50ML OF 50% DW IV FOR... UD PRN IV 10/10/16 14:30 11/09/16 14:29 Glucagon (Glucagon Inj) 1 mg UD PRN SQ 10/10/16 14:30 11/09/16 14:29 Sodium Chloride ([place] Nasal Magazine) 1 sprays PRN PRN NA 10/10/16 21:30 11/09/16 21:29 Insulin Glargine (Lantus Vial) 55 unit BID SC 10/11/16 09:00 11/10/16 08:59 I & O: 24-Hour Column 10/11/16 08:00 Intake Total 762 ml Output Total 4000 ml Balance -3238 ml Vital Signs: Date Time Temp Pulse Resp B/P Pulse Ox O2 Delivery O2 Flow Rate FiO2 10/11/16 10:00 81 18 112/48 97 Nasal Cannula 3.0 10/11/16 07:35 97 Nasal Cannula 3.0 10/11/16 07:35 36.7 73 20 142/59 97 Nasal Cannula 3.0 10/11/16 06:00 72 21 130/57 96 Nasal Cannula 3.0 10/11/16 05:00 73 21 144/63 98 Nasal Cannula 3.0 10/11/16 04:00 97 Nasal Cannula 3.0 10/11/16 04:00 36.5 75 24 135/56 98 10/11/16 03:44 66 18 148/53 98 10/11/16 03:39 75 26 135/78 94 10/11/16 03:35 78 23 130/77 96 10/11/16 03:29 60 23 118/54 96 10/11/16 03:24 53 24 89/42 97 10/11/16 03:19 62 19 84/37 97 10/11/16 03:19 62 19 84/37 97 10/11/16 03:15 62 22 97 10/11/16 03:09 61 22 99/48 98 10/11/16 03:09 61 22 99/48 98 10/11/16 03:00 66 21 98 10/11/16 02:59 67 21 103/38 98 10/11/16 02:49 67 22 121/40 97 10/11/16 02:39 68 23 116/38 97 10/11/16 02:30 71 23 95 10/11/16 02:29 71 23 109/37 96 10/11/16 02:20 62 21 94 10/11/16 02:10 64 14 97 10/11/16 02:00 71 28 123/43 96 Nasal Cannula 3.0 10/11/16 02:00 71 28 96 10/11/16 00:00 37.0 76 21 129/46 97 Nasal Cannula 3.0 10/10/16 23:59 97 Nasal Cannula 3.0 10/10/16 22:08 36.7 80 128/55 10/10/16 22:00 81 21 129/58 96 Nasal Cannula 3.0 10/10/16 21:00 80 117/60 10/10/16 20:45 78 113/59 10/10/16 20:30 79 141/48 10/10/16 20:15 78 126/61 10/10/16 20:00 97 Nasal Cannula 6.0 10/10/16 20:00 77 125/53 10/10/16 20:00 36.6 76 23 129/46 97 Nasal Cannula 6.0 10/10/16 19:45 77 129/46 10/10/16 19:30 78 91/55 10/10/16 19:15 80 117/59 10/10/16 19:00 83 121/51 10/10/16 18:45 78 124/47 10/10/16 18:30 77 119/58 10/10/16 18:15 77 111/47 10/10/16 18:15 78 20 111/47 93 Nasal Cannula 6.0 10/10/16 18:00 80 107/43 10/10/16 17:45 76 106/47 10/10/16 17:30 76 132/44 10/10/16 17:15 77 137/57 10/10/16 17:00 71 153/51 10/10/16 17:00 69 20 89 Nasal Cannula 5.0 10/10/16 16:59 67 26 153/51 92 Nasal Cannula 4.0 10/10/16 16:45 67 12 94 10/10/16 16:45 64 147/60 10/10/16 16:44 36.8 67 27 147/60 94 10/10/16 16:30 73 22 87 10/10/16 16:30 36.8 68 157/62 10/10/16 16:29 73 24 127/59 92 10/10/16 16:15 75 33 97 10/10/16 16:14 72 28 145/57 96 10/10/16 16:00 69 27 100 10/10/16 15:59 70 25 151/62 100 10/10/16 15:45 64 23 97 10/10/16 15:44 64 25 161/62 96 10/10/16 15:15 61 18 10/10/16 15:14 61 19 157/65 10/10/16 15:00 60 18 10/10/16 14:59 57 17 143/48 100 10/10/16 14:45 37 17 10/10/16 14:32 38 19 112/39 10/10/16 14:30 40 26 10/10/16 14:30 3.0 10/10/16 14:27 38 17 114/38 97 10/10/16 13:45 38 16 116/36 97 Room Air 10/10/16 13:44 39 10/10/16 12:42 39 14 132/39 98 Nasal Cannula 3.0 10/10/16 12:02 97 Nasal Cannula 3.0 10/10/16 11:40 41 19 98/35 97 Nasal Cannula 3.0 10/10/16 11:11 40 15 10/10/16 11:06 39 15 10/10/16 11:01 41 22 10/10/16 10:59 106/35 10/10/16 10:56 43 19 10/10/16 10:51 41 15 10/10/16 10:46 45 20 Laboratory Results: Last 24 Hours Test 10/10/16 10:47 10/10/16 10:51 10/10/16 16:41 10/10/16 17:00 Bedside Lactic Acid Venous 1.66 mmol/L Bedside Hemoglobin 11.2 g/dl Bedside Hematocrit 33 % Bedside Sodium 134 mEq/L Bedside Potassium 6.0 mEq/L Bedside Chloride 92 mEq/L Bedside Total CO2 31 mEq/l Anion Gap 18.0 mmol/L Bedside Blood Urea Nitrogen 90 mg/dl Bedside Creatinine 10.1 mg/dl Bedside Glucose (other) 130 mg/dl Bedside Ionized Calcium ([place]) 0.98 mmol/l Troponin I 0.032 ng/ml Bedside Glucose 243 mg/dl Test 10/10/16 20:36 10/10/16 23:09 10/11/16 05:26 10/11/16 06:24 Bedside Glucose 190 mg/dl 263 mg/dl Troponin I 0.032 ng/ml White Blood Count 8.37 K/uL Red Blood Count 3.67 M/uL Hemoglobin 11.0 g/dL Hematocrit 35.0 % Mean Corpuscular Volume 95.4 fL Mean Corpuscular Hemoglobin 30.0 pg Mean Corpuscular Hemoglobin Concent 31.4 g/dl Platelet Count 224 K/uL Mean Platelet Volume 10.0 fL Neutrophils (%) (Auto) 76.9 % Lymphocytes (%) (Auto) 11.8 % Monocytes (%) (Auto) 7.3 % Eosinophils (%) (Auto) 3.2 % Basophils (%) (Auto) 0.4 % Neutrophils # (Auto) 6.44 K/uL Lymphocytes # (Auto) 0.99 K/uL Monocytes # (Auto) 0.61 K/uL Eosinophils # (Auto) 0.27 K/uL Basophils # (Auto) 0.03 K/uL RDW Standard Deviation 60.0 fL RDW Coefficient of Variation 17.1 % Immature Granulocyte % (Auto) 0.4 % Immature Granulocyte # (Auto) 0.03 K/uL Prothrombin Time 20.4 SECONDS Prothromb Time International Ratio 1.9 Sodium Level 134 mmol/L Potassium Level 5.1 mmol/L Chloride Level 93 mmol/L Carbon Dioxide Level 32 mmol/L Anion Gap 9.0 mmol/L Blood Urea Nitrogen 36 mg/dl Creatinine 6.50 mg/dl Est Creatinine Clear Calc Drug Dose 14.1 ml/min Estimated GFR () 9.1 Estimated GFR (Non- 7.8 BUN/Creatinine Ratio 5.5 Random Glucose 250 mg/dl Calcium Level 8.4 mg/dl Free Thyroxine 0.80 ng/dl
--- NOTE | 2016-10-11 10:53 | Cardiology Follow-Up ---
Subjective Subjective Date of Service: Oct 11, 2016. Pt evaluation today including: conversation w/ patient, physical exam, chart review, lab review, review of studies, review of inpatient medication list Additional Details: Pt seen and examined, states that he still feels significantly fatigued. Tolerated dialysis well yesterday with dopamine support. Unable to wean off overnight. Dopamine gtt held and became significantly bradycardic, relatively hypotensive and more symptomatic, gtt restarted. Tele reviewed: atrial fibrillation with rates in 50's-60's. Problem List Medical Problems: (1) Ambulatory dysfunction Status: Acute (2) Hyperkalemia Status: Acute (3) Weakness Status: Acute Review of Systems Eyes: + see HPI ENT: + nasal symptoms Respiratory: No cough, No dyspnea at rest, No dyspnea on exertion, No hemoptysis, No problem reported, No see HPI, No shortness of breath, No sputum, No wheezing Cardiac: No PND, No chest pain, No claudication, No edema, No orthopnea, No palpitations, No problem reported, No see HPI Endo: + fatigue Skin: + color change, + problem reported Objective Vital Signs Last Vital Signs Documentation Date Time Temp Pulse Resp B/P Pulse Ox O2 Delivery O2 Flow Rate FiO2 10/11/16 10:00 81 18 112/48 97 Nasal Cannula 3.0 10/11/16 07:35 36.7 Physical Exam: General Appearance: WD/WN, no apparent distress Eyes: bilateral eyes EOMI, bilateral eyes PERRL, bilateral eyes normal inspection ENT: normal ENT inspection, hearing grossly normal, pharynx normal Neck: supple, no adenopathy, thyroid normal, no JVD Respiratory/Chest: chest non-tender, lungs clear, normal breath sounds, no respiratory distress, no accessory muscle use Cardiovascular: no edema, no JVD, + systolic murmur (3/6 holosystolic, LSB, 5th intercostal space, without radiation), + irregularly irregular Abdomen: normal bowel sounds, non tender, soft Extremities: normal range of motion, non-tender, + pertinent finding (chronic venous stasis changes) Neurologic/Psychiatric: 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 symptomatic bradycardia still requiring dopamine for chronotropic support discussed case with EP, Dr. Whitman, will proceed with VVI pacer, likely today INR 1.9, acceptable, hold coumadin 2. ESRD HD on Monday nephrology following 3. atrial fibrillation restart coumadin after pacer cont to monitor in ICU, can transfer to tele after pacer implant
[2016-10-11] MEDS ORDERED: LIDOCAINE HCL 1% 20 ML VIAL ONE (11:26)
[2016-10-11] MEDS ORDERED: BUPIVACAINE 0.5 % 5 MG/1 ML MPF 30ML VIAL ONE (11:26)
[2016-10-11] MEDS ORDERED: BACITRACIN 50000 UNIT VIAL ONE (11:26)
--- NOTE | 2016-10-11 11:46 | Procedure Note ---
Pre-Mod Sedation Assessment General Date of Moderate Sedation: Oct 11, 2016. Vital Signs: Vital Signs Past 12 Hours Date Time Temp Pulse Resp B/P Pulse Ox O2 Delivery O2 Flow Rate FiO2 10/11/16 10:00 81 18 112/48 97 Nasal Cannula 3.0 10/11/16 07:35 97 Nasal Cannula 3.0 10/11/16 07:35 36.7 73 20 142/59 97 Nasal Cannula 3.0 10/11/16 06:00 72 21 130/57 96 Nasal Cannula 3.0 10/11/16 05:00 73 21 144/63 98 Nasal Cannula 3.0 10/11/16 04:00 97 Nasal Cannula 3.0 10/11/16 04:00 36.5 75 24 135/56 98 10/11/16 03:44 66 18 148/53 98 10/11/16 03:39 75 26 135/78 94 10/11/16 03:35 78 23 130/77 96 10/11/16 03:29 60 23 118/54 96 10/11/16 03:24 53 24 89/42 97 10/11/16 03:19 62 19 84/37 97 10/11/16 03:19 62 19 84/37 97 10/11/16 03:15 62 22 97 10/11/16 03:09 61 22 99/48 98 10/11/16 03:09 61 22 99/48 98 10/11/16 03:00 66 21 98 10/11/16 02:59 67 21 103/38 98 10/11/16 02:49 67 22 121/40 97 10/11/16 02:39 68 23 116/38 97 10/11/16 02:30 71 23 95 10/11/16 02:29 71 23 109/37 96 10/11/16 02:20 62 21 94 10/11/16 02:10 64 14 97 10/11/16 02:00 71 28 123/43 96 Nasal Cannula 3.0 10/11/16 02:00 71 28 96 10/11/16 00:00 37.0 76 21 129/46 97 Nasal Cannula 3.0 10/10/16 23:59 97 Nasal Cannula 3.0 Review Cardiovascular: + bradycardia, + irregularly irregular Abdomen: soft Lungs: lungs clear Airway Class: II Pre-Sedation Airway Assessment Oral Cavity: Dental Abnormalities Able to Visualize Vocal Cords: No Short Thick Neck: Yes Hx of Sleep Apnea: Yes Smoking Status: Never Smoker Mallampati Classification: Class II ASA Classification: Class II Procedure Planning Contraindications-for Mod Sed: None Yes Notes The planned sedation has been discussed with the patient and consent obtained. I have identified the patient, determined the appropriateness of sedation and have assessed the patient immediately prior to the procedure. All medicine(s) and interventions are by my order.
--- NOTE | 2016-10-11 11:46 | History & Physical Bridge Note ---
H&P Re-Evaluation Bridge Note: I have examined the patient, reviewed the History & Physical and in the interval since the performance of the History & Physical I have noted the following changes of clinical significance: Full EP consult dictated. Pt with permanent AF with SVR for single chamber ppm
[2016-10-11] MEDS ORDERED: MIDAZOLAM HCL 5 MG/ML 1 ML VIAL ONE (12:03)
[2016-10-11] MEDS ORDERED: KEFZOL SPECIAL PROCEDURE STOCK 1 GM ADDVIAL IV ONE (12:04)
[2016-10-11] MEDS ORDERED: FENTANYL CITRATE INJ 50 MCG/1 ML 2 ML VIAL ONE (12:04)
[2016-10-11] MEDS ORDERED: CEFAZOLIN IV 2,000 MG in DEXTROSE 5% 50ML 50 ML IV ONE (12:15)
[2016-10-11] MEDS ORDERED: NALOXONE HCL 0.4 MG/1 ML VIAL/CARP ONE ×2 (12:24→12:29)
--- NOTE | 2016-10-11 13:11 | [facility] Post Operative Brief Note ---
Immediate Operative Summary Operative Date Oct 11, 2016. Pre-Operative Diagnosis PERMANENT AF WITH SVR Post-Operative Diagnosis SAME Procedure(s) Performed SINGLE CHAMBER RATE RESPONSIVE PPM AND PERIPHERAL VENOGRAM Surgeon EDWINA MOYA Manager Video Games Surgeon(s) VIKA Estimated Blood Loss 30CC Findings NONE Fluids (cc crystalloids) 100CC Specimens NONE Drains NONE Anesthesia 4MG VERSED AND 100MCG FENTATNYL AND 0.8MG NARCAN Complication(s) None Disposition PCU
--- NOTE | 2016-10-11 13:11 | Procedure Note ---
Post-Mod Sedation Assessment General Date of Moderate Sedation Oct 11, 2016. Vital Signs: Vital Signs Past 12 Hours Date Time Temp Pulse Resp B/P Pulse Ox O2 Delivery O2 Flow Rate FiO2 10/11/16 11:30 55 12 97 10/11/16 11:29 36.5 56 16 106/46 95 Nasal Cannula 3.0 10/11/16 11:00 95 Nasal Cannula 3.0 10/11/16 11:00 50 8 99 10/11/16 10:00 81 18 112/48 97 Nasal Cannula 3.0 10/11/16 07:35 97 Nasal Cannula 3.0 10/11/16 07:35 36.7 73 20 142/59 97 Nasal Cannula 3.0 10/11/16 06:00 72 21 130/57 96 Nasal Cannula 3.0 10/11/16 05:00 73 21 144/63 98 Nasal Cannula 3.0 10/11/16 04:00 97 Nasal Cannula 3.0 10/11/16 04:00 36.5 75 24 135/56 98 10/11/16 03:44 66 18 148/53 98 10/11/16 03:39 75 26 135/78 94 10/11/16 03:35 78 23 130/77 96 10/11/16 03:29 60 23 118/54 96 10/11/16 03:24 53 24 89/42 97 10/11/16 03:19 62 19 84/37 97 10/11/16 03:19 62 19 84/37 97 10/11/16 03:15 62 22 97 10/11/16 03:09 61 22 99/48 98 10/11/16 03:09 61 22 99/48 98 10/11/16 03:00 66 21 98 10/11/16 02:59 67 21 103/38 98 10/11/16 02:49 67 22 121/40 97 10/11/16 02:39 68 23 116/38 97 10/11/16 02:30 71 23 95 10/11/16 02:29 71 23 109/37 96 10/11/16 02:20 62 21 94 10/11/16 02:10 64 14 97 10/11/16 02:00 71 28 123/43 96 Nasal Cannula 3.0 10/11/16 02:00 71 28 96 Review - Discharge Criteria Vital Signs Stable: Yes Alert/Oriented/Conversant: Yes Returned to Baseline Mental St: Yes Nausea Absent/Minimal: Yes Pain/Discomfort/Absent/Minimal: Yes Normal/Baseline Respirations: Yes Active Bleeding?: No Pt Received D/C Instructions: N/A Prescriptions Given: None Specific Proced. D/C Criteria Distal Pulses Present (Cardiac: N/A Groin site assessed-Card Cath: N/A Voided Prior To Discharge: N/A Discharged Patients Adult Escort/Transportation: N/A
[2016-10-11] MEDS ORDERED: ACETAMINOPHEN 325 MG TAB PO PRN (13:15)
--- NOTE | 2016-10-11 13:52 | CARDIOLOGY CONSULTATION ---
DATE OF CONSULTATION: 10/11/2016 ELECTROPHYSIOLOGY CONSULT REFERRING PHYSICIAN: Dr. Donald Siegel. REASON FOR CONSULT: Permanent atrial flutter or atrial fibrillation with slow ventricular response. Consider for permanent pacemaker. HISTORY OF PRESENT ILLNESS: This is a 71-year-old gentleman who follows with us as an outpatient. He has a history of permanent atrial flutter, on Coumadin as well as end-stage renal disease, on dialysis, diabetes, diabetic neuropathy, peripheral vascular disease, pulmonary hypertension, and probable obstructive sleep apnea. He presented to the Emergency Room yesterday due to few days now of feeling very significant fatigue, no energy, unable to really ambulate and get himself up. He denied any lightheadedness, dizziness or syncope as well as any shortness of breath, chest pain or palpitations. He went to dialysis the day of hospital presentation, found to be significantly bradycardic with heart rates in the 30s, so transferred to [facility] Emergency Room. He did go through dialysis yesterday and then was monitored in the intensive care unit. He responded to dopamine with ventricular rates improving into the 60s, but he remains in the 30s without the dopamine and with underlying atrial fibrillation. PAST SURGICAL HISTORY: Right upper extremity fistula with multiple interventions, colonoscopy, cystoscopy, cataract surgery, foot surgery as a child, tonsil and adenoidectomy as a child. PAST MEDICAL HISTORY: Permanent atrial fibrillation, on Coumadin, diabetes, diabetic neuropathy, end-stage renal disease, on dialysis for about 8 years, peripheral vascular disease, moderate obesity, pulmonary hypertension, severe LVH, chronic hypoxemia, on home oxygen, foot ulcers. FAMILY HISTORY: Noncontributory. SOCIAL HISTORY: Denies any alcohol, tobacco or illicit drug use. Lives at home. REVIEW OF SYSTEMS: All other 10-point review of systems are reviewed and are essentially negative at this time. HOME MEDICATIONS: Aspirin 81 mg, Coumadin, digoxin 125 mcg Monday, , Monday, insulin, Sensipar, simvastatin, gabapentin, allopurinol. ALLERGIES: No known drug allergies. PHYSICAL EXAMINATION: VITAL SIGNS: Temperature 37.7 degrees Celsius, heart rate is in the 60s, underlying atrial fib but on a dopamine drip, respirations 20, blood pressure 142/59, oxygen saturation is 97% on 3 liters nasal cannula. GENERAL: He is awake, alert and oriented x3, no acute distress, lying in bed comfortably. HEENT: Normocephalic, atraumatic. Extraocular motion is intact. Sclera is nonicteric. Mucous membranes moist. NECK: Thick, supple. There is a left IJ triple lumen catheter in place. CARDIOVASCULAR: Irregularly irregular S1, S2, bradycardic. No murmurs appreciated. PULMONARY: Clear to auscultation bilaterally. No wheezes, rales or rhonchi. ABDOMEN: Positive bowel sounds, soft, nontender. EXTREMITIES: No clubbing or cyanosis of the bilateral lower extremities, positive edema of the bilateral lower extremities with venous chronic stasis changes. SKIN: Skin is though intact, warm and dry. NEUROLOGIC: Grossly intact. No focal deficits. PERTINENT TESTING: Telemetry, AFib with slow ventricular response. On dopamine, improved into the 60s. EKG on presentation, AFib with a ventricular rate in the 40s and left anterior fascicular block. Repeat EKG today on dopamine, his ventricular rate is 60s, underlying still AFib. Hematology: WBC is 8.3, hemoglobin 11, hematocrit 35, platelets 224. Chemistry: Sodium 134, potassium 5, chloride 93, carbon dioxide 32, BUN 36, creatinine 6.5, glucose 250, calcium 8.4. Free T4 is 0.8. Coagulation: PT 20, INR 1.9. Digoxin level is 0.7. Chest x-ray is just mild increase in pulmonary vascularization. Echocardiogram from March 2016: Left ventricular ejection fraction is normal, nondilated cardiac chambers, severe mitral annular calcification but no significant mitral regurgitation, mild aortic valve stenosis, grade 2 diastolic dysfunction. IMPRESSION: 1. Permanent atrial fibrillation with slow ventricular response, symptomatic now. 2. End-stage renal disease, on dialysis through an AV fistula on the right arm, Tuesdays, Wednesdays and . 3. Peripheral vascular disease. 4. Chronic venous insufficiency. 5. Diabetes. 6. Diabetic neuropathy. 7. Morbid obesity. 8. Probable obstructive sleep apnea. PLAN: Recommend a single-chamber permanent pacemaker due to the slow ventricular response and his underlying AFib. Discussed the risks, benefits, alternatives to the procedure. Risks include but not limited to sudden cardiac , cardiac arrhythmias, cerebrovascular accident, myocardial infarction, injury to the blood vessels, chamber of the heart and lungs, bleeding and infection. The patient understood these risks and agreed to the procedure as planned. Informed consent was obtained.
[2016-10-11] MEDS ORDERED: PHENYLEPHRINE 100MCG/ML 5ML SYR IV PRN (14:30)
[2016-10-11] MEDS ORDERED: PHENYLEPHRINE HCL INJ 20 MG in DEXTROSE 5% 500ML 500 ML IV PRN ×4 (14:45)
[2016-10-11] MEDS ORDERED: INSULIN IV INFUSION PROTOCOL STA (15:17)
[2016-10-11] MEDS ORDERED: SEVERE STRESS LEVEL ONE (15:30)
[2016-10-11] MEDS ORDERED: DKA GOAL RANGE 150-250 mg/dl 1 EA ONE (15:30)
[2016-10-11] MEDS: POLYETHYLENE (MIRALAX) 17 GM PACK PO SCH (15:37)
[2016-10-11] MEDS: CEROVITE ADV FORMULA TAB PO SCH (15:38)
[2016-10-11] MEDS: DOCUSATE SODIUM 100 MG CAP PO SCH (15:38)
[2016-10-11] MEDS: ASPIRIN 81 MG ECTAB PO SCH (15:39)
[2016-10-11] MEDS ORDERED: PHARMACY GLYCEMIC MGMT CONSULT PRN (16:00)
[2016-10-11] MEDS ORDERED: [UNRECOGNIZED DRUG - OTHER] SCH (16:15)
--- NOTE | 2016-10-11 16:17 | Pharmacy Progress Note ---
Glycemic Control Intl Consult Date of Service Oct 11, 2016. Scope Glycemic Pharmacist consulted by Dr Serrano on 10/11/16 for glycemic control and to write orders per [facility] inpatient glycemic control protocol Objective Weight (Kilograms): 139.400 Accuchecks BSG (last 24hrs): Test 10/10/16 17:00 10/10/16 20:36 10/11/16 05:26 10/11/16 06:24 Bedside Glucose 243 mg/dl (70-99) 190 mg/dl (70-99) 263 mg/dl (70-99) Random Glucose 250 mg/dl (70-99) Test 10/11/16 15:34 Bedside Glucose 226 mg/dl (70-99) Laboratory Data (last 24hrs) Test 10/11/16 05:26 Anion Gap 9.0 mmol/L BUN/Creatinine Ratio 5.5 Blood Urea Nitrogen 36 mg/dl Creatinine 6.50 mg/dl Potassium Level 5.1 mmol/L Sodium Level 134 mmol/L White Blood Count 8.37 K/uL Red Blood Count 3.67 M/uL Hemoglobin 11.0 g/dL Hematocrit 35.0 % Mean Corpuscular Volume 95.4 fL Mean Corpuscular Hemoglobin 30.0 pg Mean Corpuscular Hemoglobin Concent 31.4 g/dl Platelet Count 224 K/uL Mean Platelet Volume 10.0 fL Neutrophils (%) (Auto) 76.9 % Lymphocytes (%) (Auto) 11.8 % Monocytes (%) (Auto) 7.3 % Eosinophils (%) (Auto) 3.2 % Basophils (%) (Auto) 0.4 % Neutrophils # (Auto) 6.44 K/uL Lymphocytes # (Auto) 0.99 K/uL Monocytes # (Auto) 0.61 K/uL Eosinophils # (Auto) 0.27 K/uL Basophils # (Auto) 0.03 K/uL Recent Pertinent Medications Outpatient Anti-diabetic Regimen: * NovoLog sliding scale with meals * Toujeo 60 units SQ BID * A1c = n/a The patient is currently receiving: * Basal insulin: Lantus 50 units every 12 hours --> increased to 55 units SQ BID, however AM dose not given today * Correctional Insulin: NovoLog Correction per scale AC/HS Goal Range: Low 125 mg/dL - High 175 mg/dL Correction Factor: 15 mg/dL/unit * Prandial insulin: Per carb ratio of 1 unit per 5 grams CHO consumed Risk Factors for Insulin Resistance: * Steroids: none * Infection: cefazolin perioperatively * Pressors: phenylephrine * IVF: n/a * Recent Surgery: pacer today * Diet: NPO * Mechanical Ventilation: n/a Assessment & Plan ASSESSMENT: * ADA & AACE recommend a goal blood sugar range 140-180 mg/dl for the majority of critically ill & non-critically ill patients. However, more stringent targets may be selected in individual cases. * Today, the patient has had some complications such as loss of central access. * BSGs elevated at this time - an insulin gtt has been started by the manager sterile. * Outpatient control unknown as HgA1c not reliable in hemodialysis patients PLAN FOR INPATIENT GLYCEMIC CONTROL: * Hold Lantus at this time - insulin drip will be started * Begin insulin infusion - agree with this course of action as it is the standard of care in the ICU setting. * severe stress protocol * goal range: 150-250mg/dL - may consider lower goal range (140-180mg/dL) for ICU patients per ADA recommendations * NovoLog PC and HS if patient is to consume CHO If transition off of the insulin infusion is warranted, may consider resumption of Lantus and NovoLog every 4 hours until AM RPh available. * Please note that the plan above was derived based on current level of insulin resistance and hospital stress. These recommendations are appropriate for inpatient admission only. Plan of care upon discharge will need to be reassessed to avoid potential outpatient hypo/hyperglycemia. Thank you.
[2016-10-11] MEDS ORDERED: INSULIN HUMAN REGULAR IV BOLUS 5 UNIT in SYRINGE 0 ML IV SCH (17:00)
[2016-10-11] MEDS ORDERED: INSULIN REGULAR 250 UNITS in SODIUM CHLORIDE 0.9% 250ML 250 ML IV SCH (17:00)
[2016-10-11] MEDS ORDERED: INSULIN ASPART 100 UNITS/ML 3 ML PEN SC SCH (17:15)
[2016-10-11] MEDS: SIMVASTATIN 40 MG TAB PO SCH (21:03)
[2016-10-11] MEDS: INSULIN GLARGINE SC SCH (21:09)
--- NOTE | 2016-10-11 22:49 | Progress Note ---
Subjective Date of Service: Oct 11, 2016. Subjective Pt evaluation today including: conversation w/ patient, physical exam, chart review, lab review, review of studies (pacemaker placement), conversation w/ railroad design consultant (critical care/cardiology), review of inpatient medication list Pain: denies events of last evening noted attempts at weaning dopamine were unsuccessful (any attempt led to decrease in BP and HR) I saw the patient following his pacemaker placement and he offered no complaints he expresses a desire to go to [facility] for rehab Problem List Medical Problems: (1) Ambulatory dysfunction Status: Acute (2) Hyperkalemia Status: Acute (3) Weakness Status: Acute Review of Systems Constitutional: No fever Respiratory: No dyspnea at rest Cardiac: No chest pain Abdomen: No pain Objective Vital Signs Date Time Temp Pulse Resp B/P Pulse Ox O2 Delivery O2 Flow Rate FiO2 10/11/16 16:15 78 18 96 10/11/16 16:15 98 Nasal Cannula 3.0 10/11/16 16:13 77 17 114/57 96 Nasal Cannula 3.0 10/11/16 16:00 63 16 96 10/11/16 15:58 62 14 102/47 10/11/16 15:45 62 10 97 10/11/16 15:44 66 14 99/45 97 Nasal Cannula 3.0 10/11/16 15:30 78 12 97 10/11/16 15:29 75 12 115/57 97 10/11/16 15:15 75 15 98 10/11/16 15:13 79 10 109/50 95 Nasal Cannula 3.0 10/11/16 15:00 77 13 95 10/11/16 14:58 76 22 100/53 94 Nasal Cannula 3.0 10/11/16 14:45 79 25 96 10/11/16 14:43 78 24 85/41 95 Nasal Cannula 3.0 10/11/16 14:30 80 23 96 10/11/16 14:28 80 21 90/45 10/11/16 14:15 69 18 95 Nasal Cannula 3.0 10/11/16 14:14 78 18 87/45 95 Nasal Cannula 3.0 10/11/16 14:00 80 24 94 10/11/16 13:44 64 24 81/39 92 Nasal Cannula 3.0 10/11/16 13:40 62 27 91 10/11/16 13:32 72 16 83/48 91 Nasal Cannula 3.0 10/11/16 13:07 85 16 108/60 93 Nasal Cannula 5 10/11/16 11:30 55 12 97 10/11/16 11:29 36.5 56 16 106/46 95 Nasal Cannula 3.0 10/11/16 11:00 95 Nasal Cannula 3.0 10/11/16 11:00 50 8 99 10/11/16 10:00 81 18 112/48 97 Nasal Cannula 3.0 10/11/16 07:35 97 Nasal Cannula 3.0 10/11/16 07:35 36.7 73 20 142/59 97 Nasal Cannula 3.0 10/11/16 06:00 72 21 130/57 96 Nasal Cannula 3.0 10/11/16 05:00 73 21 144/63 98 Nasal Cannula 3.0 10/11/16 04:00 97 Nasal Cannula 3.0 10/11/16 04:00 36.5 75 24 135/56 98 10/11/16 03:44 66 18 148/53 98 10/11/16 03:39 75 26 135/78 94 10/11/16 03:35 78 23 130/77 96 10/11/16 03:29 60 23 118/54 96 10/11/16 03:24 53 24 89/42 97 10/11/16 03:19 62 19 84/37 97 10/11/16 03:19 62 19 84/37 97 10/11/16 03:15 62 22 97 10/11/16 03:09 61 22 99/48 98 10/11/16 03:09 61 22 99/48 98 10/11/16 03:00 66 21 98 10/11/16 02:59 67 21 103/38 98 10/11/16 02:49 67 22 121/40 97 10/11/16 02:39 68 23 116/38 97 10/11/16 02:30 71 23 95 10/11/16 02:29 71 23 109/37 96 10/11/16 02:20 62 21 94 10/11/16 02:10 64 14 97 10/11/16 02:00 71 28 123/43 96 Nasal Cannula 3.0 10/11/16 02:00 71 28 96 10/11/16 00:00 37.0 76 21 129/46 97 Nasal Cannula 3.0 10/10/16 23:59 97 Nasal Cannula 3.0 Physical Exam General Appearance: no apparent distress, + obese ENT: pharynx normal Neck: no JVD Respiratory/Chest: lungs clear, no respiratory distress, no accessory muscle use Cardiovascular: regular rate, rhythm, no gallop, no murmur, + pertinent finding (newly placed pacemaker left upper chest) Abdomen: normal bowel sounds, non tender, soft, no organomegaly Extremities: + pedal edema Neurologic/Psychiatric: alert, oriented x 3 Skin: + pertinent finding (LEs wrapped in dressings) Laboratory Results Last 24 Hours Test 10/10/16 23:09 10/11/16 05:26 10/11/16 06:24 10/11/16 15:34 Troponin I 0.032 ng/ml White Blood Count 8.37 K/uL Red Blood Count 3.67 M/uL Hemoglobin 11.0 g/dL Hematocrit 35.0 % Mean Corpuscular Volume 95.4 fL Mean Corpuscular Hemoglobin 30.0 pg Mean Corpuscular Hemoglobin Concent 31.4 g/dl Platelet Count 224 K/uL Mean Platelet Volume 10.0 fL Neutrophils (%) (Auto) 76.9 % Lymphocytes (%) (Auto) 11.8 % Monocytes (%) (Auto) 7.3 % Eosinophils (%) (Auto) 3.2 % Basophils (%) (Auto) 0.4 % Neutrophils # (Auto) 6.44 K/uL Lymphocytes # (Auto) 0.99 K/uL Monocytes # (Auto) 0.61 K/uL Eosinophils # (Auto) 0.27 K/uL Basophils # (Auto) 0.03 K/uL RDW Standard Deviation 60.0 fL RDW Coefficient of Variation 17.1 % Immature Granulocyte % (Auto) 0.4 % Immature Granulocyte # (Auto) 0.03 K/uL Prothrombin Time 20.4 SECONDS Prothromb Time International Ratio 1.9 Sodium Level 134 mmol/L Potassium Level 5.1 mmol/L Chloride Level 93 mmol/L Carbon Dioxide Level 32 mmol/L Anion Gap 9.0 mmol/L Blood Urea Nitrogen 36 mg/dl Creatinine 6.50 mg/dl Est Creatinine Clear Calc Drug Dose 14.1 ml/min Estimated GFR () 9.1 Estimated GFR (Non- 7.8 BUN/Creatinine Ratio 5.5 Random Glucose 250 mg/dl Calcium Level 8.4 mg/dl Free Thyroxine 0.80 ng/dl Bedside Glucose 263 mg/dl 226 mg/dl Test 10/11/16 20:28 Bedside Glucose 137 mg/dl Assessment and Plan 71yo male with multiple medical problems including ESRD on HD M/W/, T2DM, a. fib on chronic coumadin, PAD, morbid obesity, chronic respiratory failure on home O2 - who presented with borderline shock and slow a. fib (vs junctional rhythm). 1. severe, symptomatic bradycardia in the setting of chronic a. fib and hyperkalemia - s/p permanent pacemaker placement today by Kian CABELLO. Appreciate their consultative efforts. CXR in am ordered by cardiology. Continue to hold coumadin today. 2. hyperkalemia - resolved s/p HD yesterday. To have HD again tomorrow. 3. ESRD on HD // - Dr. Flaherty managing. HD tomorrow. Cont phosphate binders, etc. 4. T2DM - resume lantus 50 units BID + novolog with correction factor of 15 and carb ratio of 1 units / 5 grams of carbs. Adjust as necessary. BSGs ac/hs. 5. PAD - continue aspirin therapy if not contraindicated in the setting of his pacer placement today. 6. a. fib on chronic coumadin - resume coumadin when ok with cardiology. 7. chronic respiratory failure on home O2 - continue NC O2 3 liters. No evidence of complicating CHF or pneumonia. 8. chronic diastolic CHF - compensated. 9. FEN - renal/T2DM diet; fluid restrict to 1500cc/day. BMP again in am. High K resolved. 10. DVT proph - INR 1.9 today. 11. hyperlipidemia - statin agent. 12. chronic lower extremity wounds - wound care team to follow and reapply dressings as needed. No superimposed cellulitis or infection. PT, OT consults to see if rehab is needed all physicians in agreement that he can transfer to telemetry floor Continued [facility] stay due to: other (s/p pacemaker placement) Discharge planning: uncertain
[2016-10-12] VITALS (26 sets, daily range): BP systolic 85–130; BP diastolic 39–67; PULSE 60–80; TEMP 36.5–36.9; O2SAT 95–97
[2016-10-12] MEDS: INSULIN ASPART 100 UNITS/ML 3 ML PEN SC SCH ×6 (00:27→21:00)
[2016-10-12] MEDS: OXYCODONE/ACETAMINOPHEN 5-325 TAB PO PRN ×2 (00:59→15:36)
[2016-10-12 06:06] LABS: BASO % 0.3 %; BASO ABS # 0.02 K/uL (0-0.2); COMPLETE YES; EOS % 4.3 %; HEMATOCRIT 33.2 % (42-52); IG% 0.3 %; LYMPH % 13.7 %; LYMPH ABS # 0.99 K/uL (1.2-3.4); MEAN CELL VOLUME 94.6 fL (80-100); MEAN CORPUSCULAR HEMOGLOBIN 30.2 pg (25-34); MEAN CORPUSCULAR HGB CONC 31.9 g/dl (32-36); MEAN PLATELET VOLUME 9.9 fL (7.4-10.4); MONO % 10.6 %; NEUT % 70.8 %; PLATELET COUNT 205 K/uL (130-400); RED BLOOD COUNT 3.51 M/uL (4.7-6.1); WHITE BLOOD COUNT 7.24 K/uL (4.8-10.8)
[2016-10-12 06:12] LABS: INR 1.7 (0.9-1.1); PROTHROMBIN TIME (PATIENT) 19.1 SECONDS (9.0-12.0)
[2016-10-12 06:58] LABS: BUN/CREATININE RATIO 6.6 (10-20); CALCIUM 8.3 mg/dl (8.5-10.1); POTASSIUM 5.9 mmol/L (3.5-5.1)
[2016-10-12] MEDS: CALCIUM ACETATE 667MG GELCAP PO SCH ×3 (07:33→17:31)
[2016-10-12] MEDS: POLYETHYLENE (MIRALAX) 17 GM PACK PO SCH (07:35)
--- NOTE | 2016-10-12 08:10 | DIAGNOSTIC IMAGING REPORT ---
CHEST 2 VIEWS ROUTINE CLINICAL HISTORY: Pacemaker insertion. COMPARISON STUDY: Chest radiograph October 10, 2016. FINDINGS: This exam is compromised by suboptimal penetration related to body habitus. There has been interval placement of a left subclavian single-lead pacemaker. Lead tip projects over the right ventricular apex. There is no pneumothorax. Cardiomegaly is unchanged. There is pulmonary vascular congestion. A stent projects over the right upper hemithorax. IMPRESSION: No pneumothorax following placement of a left subclavian pacemaker. Electronically signed by: Adin Mari M.D. 10/12/2016 8:09 AM
[2016-10-12] MEDS: INSULIN GLARGINE SC SCH ×2 (08:40→21:32)
[2016-10-12] MEDS: ALLOPURINOL 100 MG TAB PO SCH (08:43)
[2016-10-12] MEDS: CINACALCET 30 MG TAB PO SCH (08:44)
[2016-10-12] MEDS: PANTOprazole SOD 40 MG TAB PO SCH (08:46)
[2016-10-12] MEDS: GABAPENTIN 100 MG CAP PO SCH (08:46)
[2016-10-12] MEDS ORDERED: SODIUM CHLORIDE 0.9% 1000ML 1,000 ML IV PRN (09:17)
[2016-10-12] MEDS ORDERED: HEPARIN SOD (PORCINE) 1000 UNIT/ML 10 ML VIAL IV ONE (09:30)
[2016-10-12] MEDS ORDERED: EPOETIN ALFA 10,000 UNITS/ML VIAL IV. ONE (09:30)
--- NOTE | 2016-10-12 09:43 | NEPHROLOGY PROGRESS NOTE ---
DATE: 10/12/2016 DATE: 10/12/2016. SUBJECTIVE: Mr. Cabrera says that he is feeling relatively well. He had his pacemaker placed yesterday. The procedure was apparently uncomplicated. This morning he says that he feels more "energetic" although he has not been out of bed. He denies having any chest pain and he denies shortness of breath. He has no specific symptoms of uremia or volume overload. He is now off pressors. OBJECTIVE: GENERAL: On physical exam, Mr. Cabrera appears about the same. He was lying quietly in bed in no distress. VITAL SIGNS: His temperature is 36.9 degrees orally. His blood pressure 97/50, his pulse 68 and basically regular with paced rhythm on the monitor. Respiratory rate is 22. His pulse ox is 95-98% on 3 liters of oxygen via nasal cannula. SKIN: Shows normal skin turgor. He has very dry skin involving his lower extremities, particularly his feet. He has scars from prior surgical procedures, most notably a recent incision beneath the distal left clavicle from the implantation of his pacemaker as well as a right upper arm scar from the creation of his AV fistula and multiple dialysis needle track henry over the fistula. He has no other evidence of a rash or infiltrative skin disease. He has changes on his head and face of seborrheic dermatitis. LYMPHATICS: Show no palpable lymphadenopathy. HEAD: Grossly normal. EYES: Grossly normal. The ocular fundi were not examined. EARS, NOSE, MOUTH AND THROAT: Unremarkable. His oral mucous membranes are moist. NECK: Supple. There is no jugular venous distention, but the exam is difficult because of his body habitus. He has no carotid bruit and there is no obvious thyromegaly. CHEST: Shows elevated hemidiaphragms related to his body habitus and current positioning. Breath sounds are diminished at the bases but otherwise seen clear. CARDIAC: Exam shows distant sounds. His rhythm is regular (paced on the monitor). He has a grade 2/6 systolic murmur heard loudest at the base. He has a soft murmur transmitted into the upper right chest from his AV fistula. ABDOMEN: Obviously obese but nontender. There is no obvious organomegaly or mass, but again the exam is limited by his body habitus. EXTREMITIES: Show 1+ firm lower extremity edema on the dry skin on his feet. NEUROLOGIC EXAMINATION: Shows no lateralizing changes. PERTINENT LABORATORY WORK: From today shows a white blood cell count of 7240 with 70.8% neutrophils, 13.7% lymphocytes, 10.6% monocytes, 4.3% eosinophils and 0.3% basophils. His hemoglobin is 10.6, his hematocrit 33.2. Platelet count is 205,000. His prothrombin time is 19.1 with an INR of 1.7. Clinical chemistries show a sodium of 133 mmol/L, potassium 5.9 mmol/L, chloride is 95 mmol/L, and CO2 content 27 mmol/L. His BUN is 58, his creatinine 9.00. His random blood sugar this morning is 144. Blood sugars have varied from 127-226. His serum calcium is 8.3. ASSESSMENT: As before. A pacemaker has now been placed. His heart rate is maintained at 60 and occasionally better. His blood pressure has not changed dramatically. PLAN: No immediate changes, but we will arrange for his hemodialysis today. He will also receive Venofer and erythropoietin as part of his procedure today. No other immediate intervention. Apparently, plans are underway for him to be evaluated by physical therapy in hopes that [facility] if we can improve his mobility.
[2016-10-12] MEDS ORDERED: EPOETIN ALFA INJ 5,000 UNITS in SYRINGE 0 ML IV. SCH (10:00)
[2016-10-12] MEDS ORDERED: IRON SUCROSE INJ 50 MG in SYRINGE 0 ML IV ONE (10:00)
[2016-10-12] MEDS: ASPIRIN 81 MG ECTAB PO SCH (10:48)
[2016-10-12] MEDS: DOCUSATE SODIUM 100 MG CAP PO SCH (10:48)
[2016-10-12] MEDS: CEROVITE ADV FORMULA TAB PO SCH (10:48)
--- NOTE | 2016-10-12 12:01 | Cardiology Follow-Up ---
Subjective Subjective Date of Service: Oct 12, 2016. Pt evaluation today including: conversation w/ patient, physical exam, chart review, lab review, review of studies, review of inpatient medication list Additional Details: Pt seen and examined, states that he feels much better after pacer implantation. Fatigue improved. Would like to go to [facility] for inpt rehab. Denies cp, sob, palpitations, lightheadedness or dizziness. Tele reviewed: atrial fibrillation with majority of v-pacing. Problem List Medical Problems: (1) Ambulatory dysfunction Status: Acute (2) Hyperkalemia Status: Acute (3) Weakness Status: Acute Review of Systems Constitutional: No fever Eyes: + see HPI ENT: + nasal symptoms Respiratory: No cough, No dyspnea at rest, No dyspnea on exertion, No hemoptysis, No problem reported, No see HPI, No shortness of breath, No sputum, No wheezing Cardiac: No PND, No chest pain, No claudication, No edema, No orthopnea, No palpitations, No problem reported, No see HPI Abdomen: No pain Endo: + fatigue Skin: + color change, + problem reported Objective Vital Signs Last Vital Signs Documentation Date Time Temp Pulse Resp B/P Pulse Ox O2 Delivery O2 Flow Rate FiO2 10/12/16 08:00 95 Nasal Cannula 3.0 10/12/16 08:00 36.7 60 13 130/55 Physical Exam: General Appearance: WD/WN, no apparent distress, + obese Eyes: bilateral eyes EOMI, bilateral eyes PERRL, bilateral eyes normal inspection ENT: normal ENT inspection, hearing grossly normal, pharynx normal Neck: supple, no adenopathy, thyroid normal, no JVD, no carotid bruits, trachea midline Respiratory/Chest: lungs clear, normal breath sounds, no respiratory distress, no accessory muscle use Cardiovascular: no gallop, no murmur, + irregularly irregular, + pertinent finding (newly placed pacemaker left upper chest) Abdomen: normal bowel sounds, non tender, soft, no organomegaly Extremities: normal inspection, no pedal edema, no calf tenderness, + pedal edema Neurologic/Psychiatric: 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 symptomatic bradycardia s/p PPM placement tolerated well now pacing 66% overnight 2. ESRD HD on Monday nephrology following 3. atrial fibrillation restart coumadin could also restart dig but will hold off for now ok to d/c to rehab from cardiac standpoint. Continued [facility] stay due to: other (s/p pacemaker placement) Discharge planning: uncertain
--- NOTE | 2016-10-12 14:06 | Pharmacy Progress Note ---
Glycemic Control: Progress Nt Date of Service Oct 12, 2016. Scope Glycemic Pharmacist consulted by Dr Serrano on 10/11/16 for glycemic control and to write orders per [facility] inpatient glycemic control protocol. Objective Accuchecks BSG (last 24hrs): Test 10/11/16 15:34 10/11/16 20:28 10/12/16 00:17 10/12/16 03:40 Bedside Glucose 226 mg/dl (70-99) 137 mg/dl (70-99) 157 mg/dl (70-99) 127 mg/dl (70-99) Test 10/12/16 05:32 10/12/16 11:22 Random Glucose 144 mg/dl (70-99) Bedside Glucose 172 mg/dl (70-99) Laboratory Data (last 24hrs) Test 10/12/16 05:32 Anion Gap 11.0 mmol/L BUN/Creatinine Ratio 6.6 Blood Urea Nitrogen 58 mg/dl Creatinine 9.00 mg/dl Potassium Level 5.9 mmol/L Sodium Level 133 mmol/L White Blood Count 7.24 K/uL Red Blood Count 3.51 M/uL Hemoglobin 10.6 g/dL Hematocrit 33.2 % Mean Corpuscular Volume 94.6 fL Mean Corpuscular Hemoglobin 30.2 pg Mean Corpuscular Hemoglobin Concent 31.9 g/dl Platelet Count 205 K/uL Mean Platelet Volume 9.9 fL Neutrophils (%) (Auto) 70.8 % Lymphocytes (%) (Auto) 13.7 % Monocytes (%) (Auto) 10.6 % Eosinophils (%) (Auto) 4.3 % Basophils (%) (Auto) 0.3 % Neutrophils # (Auto) 5.13 K/uL Lymphocytes # (Auto) 0.99 K/uL Monocytes # (Auto) 0.77 K/uL Eosinophils # (Auto) 0.31 K/uL Basophils # (Auto) 0.02 K/uL Recent Pertinent Medications Outpatient Anti-diabetic Regimen: * Toujeo 60 units SQ BID * Novolog per sliding scale The patient is currently receiving: * Basal insulin: Lantus 50 units every 12 hours * Correctional Insulin: Novolog Correction per scale ACHS Goal Range: Low 140 mg/dL - High 180 mg/dL Correction Factor: 15 mg/dL/unit * Prandial insulin: Per carb ratio of 1 unit per 5 grams CHO consumed * Oral Agents: none currently Risk Factors for Insulin Resistance: * Recent Surgery: POD # 1 s/p pacer * Diet: ordered T2DM / Renal diet and tolerating well per carb counts Assessment & Plan ASSESSMENT: 10/12/16 * Basal / bolus SQ regimen was adjusted yesterday evening in response to AM and early afternoon hyperglycemia * Stressors have lessened over the last 24 hours, no longer on dopamine for bradycardia, no longer on phenylephrine for pressure support * Patient is being dialyzed today - which usually leads to improved insulin sensitivity * Fasting BSG 127-144 this AM, will continue the current Lantus dose * Post-prandial BSG controlled after breakfast; current Novolog CF and CR are reasonable starting points, continue for now and BSG pattern PLAN FOR INPATIENT GLYCEMIC CONTROL: * Continuing Lantus 50 units SQ BID - give 1/2 dose if BSG less than 120 * Continuing correction factor 15 mg/dl/unit * Continuing carb ratio 1 unit per 5 grams CHO consumed * Continuing goal range Low 140 mg/dL - High 180 mg/dL * Please note that the plan above was derived based on current level of insulin resistance and hospital stress. These recommendations are appropriate for inpatient admission only. Plan of care upon discharge will need to be reassessed to avoid potential outpatient hypo/hyperglycemia. Thank you.
--- NOTE | 2016-10-12 16:06 | Cardiology Follow-Up ---
Subjective Subjective Date of Service: Oct 12, 2016. Pt evaluation today including: conversation w/ patient, physical exam, chart review, lab review, review of studies Pain: minimal discomfort at incision site Problem List Medical Problems: (1) Ambulatory dysfunction Status: Acute (2) Hyperkalemia Status: Acute (3) Weakness Status: Acute Review of Systems Constitutional: No fever ENT: + nasal symptoms Respiratory: No dyspnea at rest, No dyspnea on exertion, No shortness of breath Cardiac: No chest pain, No edema, No orthopnea, No palpitations Abdomen: No diarrhea, No nausea Objective Vital Signs Last Vital Signs Documentation Date Time Temp Pulse Resp B/P Pulse Ox O2 Delivery O2 Flow Rate FiO2 10/12/16 15:45 60 94/45 10/12/16 12:15 36.7 10/12/16 12:00 13 97 Nasal Cannula 3.0 Physical Exam: General Appearance: WD/WN, no apparent distress, + obese Eyes: bilateral eyes EOMI, bilateral eyes PERRL, bilateral eyes normal inspection Neck: supple, no JVD Respiratory/Chest: lungs clear, normal breath sounds, no respiratory distress Cardiovascular: regular rate, rhythm, no gallop, no murmur Abdomen: normal bowel sounds, non tender, soft Extremities: no pedal edema, + pedal edema Neurologic/Psychiatric: alert, oriented x 3 Skin: normal color, warm/dry, no rash, + pertinent finding (left pectoral incision intact; no hematoma; mild ecchymosis) Assessment and Plan Impression: 1. Permanent atrial fibrillation with SVR s/p VVI ppm 10/11/2015 2. DM 3. ESRD on HD 4. Morbid Obesity Plan: -Normal pacemaker function -Pt not allowed to lift the left elbow over the left shoulder for 1 month -Do not lift more than 10 pounds with the left arm for 2 weeks -F/u in [facility] device clinic 7-10 days for device and wound check Continued [facility] stay due to: other (s/p pacemaker placement) Discharge planning: uncertain Medications: Pacemaker Interrogation Today: Normal RV sensing, threshold and impedance ECG: PLASTIC SEWER with underlying AF CXR: Lead in position No PTX Medications Administered Medications (Trade) Dose Ordered Sig/[place] Route Start Time Stop Time Status Last Admin Dose Admin Ondansetron HCl (Zofran Inj) 4 mg Q6H PRN IV 10/10/16 13:15 11/09/16 13:14 10/11/16 01:38 4 MG Pantoprazole Sodium (Protonix Tab) 40 mg DAILY PO 10/11/16 09:00 11/10/16 08:59 10/12/16 08:46 40 MG Allopurinol (Zyloprim Tab) 100 mg DAILY PO 10/11/16 09:00 11/10/16 08:59 10/12/16 08:43 100 MG Aspirin (Ecotrin Tab) 81 mg DAILY PO 10/11/16 09:00 11/10/16 08:59 10/12/16 10:48 81 MG Calcium Acetate (Phoslo Cap) 2,001 mg TIDM PO 10/10/16 16:30 11/09/16 17:59 10/12/16 11:55 2,001 MG Docusate Sodium (coLACE CAP) 100 mg QAM PO 10/11/16 09:00 11/10/16 08:59 10/12/16 10:48 100 MG Multivitamins/ Minerals (Multivitamin W/ Minerals Tab) 1 tab DAILY PO 10/11/16 09:00 11/10/16 08:59 10/12/16 10:48 1 TAB Polyethylene (Miralax Powder Packet) 17 gm DAILY PO 10/11/16 09:00 11/10/16 08:59 10/12/16 07:35 17 GM Simvastatin (Zocor Tab) 40 mg QPM PO 10/10/16 21:00 11/09/16 20:59 10/11/16 21:03 40 MG Cinacalcet (Sensipar) 60 mg DAILY PO 10/11/16 09:00 11/10/16 08:59 10/12/16 08:44 60 MG Gabapentin (Neurontin Cap) 100 mg QAM PO 10/11/16 09:00 11/10/16 08:59 10/12/16 08:46 100 MG Insulin Glargine (Lantus Vial) 50 unit BID SC 10/10/16 21:00 10/11/16 08:18 DC 10/10/16 20:51 50 UNIT Insulin Aspart SLIDING SCALE G... ACHS SC 10/10/16 16:00 10/11/16 15:55 DC 10/11/16 07:56 6 UNITS Dopamine HCl/ Dextrose (DOPamine 400MG / D5W) 250 ml @ 0 mls/hr Q0M PRN IV 10/10/16 14:00 10/11/16 13:13 DC 10/11/16 01:39 26.1 MLS/HR Dopamine HCl/ Dextrose (DOPamine 400MG / D5W) 400 mg STK-MED ONCE .ROUTE 10/10/16 14:36 10/10/16 14:37 DC 10/10/16 14:40 400 MG Sodium Chloride ([place] Nasal [place]) 225 sprays STK-MED ONCE .ROUTE 10/10/16 21:23 10/10/16 21:25 DC 10/10/16 21:33 225 SPRAYS Calcium Acetate (Phoslo Cap) 2,001 mg NOW ONCE PO 10/10/16 23:45 10/10/16 23:46 DC 10/10/16 23:45 2,001 MG Oxycodone/ Acetaminophen (Percocet 5-325MG Tab) 1 tab for pain scale 4-6 2 t... Q6H PRN PO 10/11/16 13:15 10/25/16 13:14 10/12/16 15:36 1 TAB Acetaminophen (Tylenol Tab) 650 mg Q4H PRN PO 10/11/16 13:15 11/10/16 13:14 10/11/16 20:06 650 MG Insulin Glargine (Lantus Vial) 50 unit BID SC 10/11/16 21:00 11/10/16 20:59 10/12/16 08:40 50 UNIT Insulin Aspart (novoLOG ASPART) SLIDING SCALE ACHS SC 10/11/16 21:00 11/10/16 20:59 10/12/16 12:09 9 UNITS Insulin Aspart (novoLOG ASPART) SLIDING SCALE 0000,0400 SC 10/12/16 00:00 10/12/16 10:32 DC 10/12/16 00:27 4 UNITS Heparin Sodium (Porcine) 2000 unit 2,000 unit ONE ONCE IV 10/12/16 09:30 10/12/16 09:57 DC 10/12/16 13:00 2,000 UNIT Iron Sucrose 50 mg/Syringe 2.5 ml @ 1 mls/min TODAY@1000 ONCE IV 10/12/16 10:00 10/12/16 10:02 DC 10/12/16 10:00 1 MLS/MIN Epoetin Ramón/ Syringe (Procrit Inj/ Syringe) 0.25 ml @ 1 mls/min TODAY@1000 IV. 10/12/16 10:00 10/12/16 18:00 10/12/16 13:00 1 MLS/MIN Last 24 Hours Test 10/11/16 20:28 10/12/16 00:17 10/12/16 03:40 10/12/16 05:32 Bedside Glucose 137 mg/dl 157 mg/dl 127 mg/dl White Blood Count 7.24 K/uL Red Blood Count 3.51 M/uL Hemoglobin 10.6 g/dL Hematocrit 33.2 % Mean Corpuscular Volume 94.6 fL Mean Corpuscular Hemoglobin 30.2 pg Mean Corpuscular Hemoglobin Concent 31.9 g/dl Platelet Count 205 K/uL Mean Platelet Volume 9.9 fL Neutrophils (%) (Auto) 70.8 % Lymphocytes (%) (Auto) 13.7 % Monocytes (%) (Auto) 10.6 % Eosinophils (%) (Auto) 4.3 % Basophils (%) (Auto) 0.3 % Neutrophils # (Auto) 5.13 K/uL Lymphocytes # (Auto) 0.99 K/uL Monocytes # (Auto) 0.77 K/uL Eosinophils # (Auto) 0.31 K/uL Basophils # (Auto) 0.02 K/uL RDW Standard Deviation 58.1 fL RDW Coefficient of Variation 16.8 % Immature Granulocyte % (Auto) 0.3 % Immature Granulocyte # (Auto) 0.02 K/uL Prothrombin Time 19.1 SECONDS Prothromb Time International Ratio 1.7 Sodium Level 133 mmol/L Potassium Level 5.9 mmol/L Chloride Level 95 mmol/L Carbon Dioxide Level 27 mmol/L Anion Gap 11.0 mmol/L Blood Urea Nitrogen 58 mg/dl Creatinine 9.00 mg/dl Est Creatinine Clear Calc Drug Dose 10.2 ml/min Estimated GFR () 6.1 Estimated GFR (Non- 5.3 BUN/Creatinine Ratio 6.6 Random Glucose 144 mg/dl Calcium Level 8.3 mg/dl Test 10/12/16 11:22 Bedside Glucose 172 mg/dl
[2016-10-12] MEDS: SIMVASTATIN 40 MG TAB PO SCH (21:31)
--- NOTE | 2016-10-12 22:40 | Progress Note ---
Subjective Date of Service: Oct 12, 2016. Subjective Pt evaluation today including: conversation w/ patient, physical exam, chart review, lab review, review of studies (cxr), conversation w/ framing consultant ( cardiology, nephrology), review of inpatient medication list Pain: mild left chest wall pain from pacer site PO Intake: normal tele overnight with significant amount of pacing, probably >50% of the time denies any sob at rest has not gotten out of bed since admission but is desiring to do so he again expresses interest in going to [facility] for rehab Problem List Medical Problems: (1) Ambulatory dysfunction Status: Acute (2) Hyperkalemia Status: Acute (3) Weakness Status: Acute Review of Systems Constitutional: No fever Respiratory: No cough, No dyspnea at rest Cardiac: No chest pain, No orthopnea Abdomen: No pain Objective Vital Signs Date Time Temp Pulse Resp B/P Pulse Ox O2 Delivery O2 Flow Rate FiO2 10/12/16 17:02 36.5 80 111/55 10/12/16 17:00 60 101/45 10/12/16 16:45 60 111/42 10/12/16 16:30 60 99/45 10/12/16 16:15 60 110/51 10/12/16 16:00 60 100/43 10/12/16 16:00 95 Nasal Cannula 3.0 10/12/16 16:00 36.7 60 13 116/45 97 Nasal Cannula 3.0 10/12/16 15:45 60 94/45 10/12/16 15:30 60 94/47 10/12/16 15:15 60 110/60 10/12/16 15:00 60 97/51 10/12/16 14:45 60 105/45 10/12/16 14:30 60 108/52 10/12/16 14:15 60 110/50 10/12/16 14:00 60 95/56 10/12/16 13:45 60 115/60 10/12/16 13:30 60 100/50 10/12/16 13:15 60 105/49 10/12/16 13:00 60 115/55 10/12/16 12:45 60 112/60 10/12/16 12:30 60 108/57 10/12/16 12:15 36.7 60 116/51 10/12/16 12:00 36.7 60 13 115/67 97 Nasal Cannula 3.0 10/12/16 12:00 95 Nasal Cannula 3.0 10/12/16 08:00 95 Nasal Cannula 3.0 10/12/16 08:00 36.7 60 13 130/55 97 Nasal Cannula 3.0 10/12/16 04:00 95 Nasal Cannula 3.0 10/12/16 04:00 36.9 60 22 97/50 97 Nasal Cannula 3.0 10/11/16 23:59 37.0 62 18 111/48 98 Nasal Cannula 3.0 10/11/16 23:59 96 Nasal Cannula 3.0 10/11/16 20:00 95 Nasal Cannula 3.0 10/11/16 20:00 36.8 61 20 104/40 95 Nasal Cannula 3.0 Physical Exam General Appearance: no apparent distress, + obese ENT: pharynx normal Neck: no JVD Respiratory/Chest: lungs clear, no respiratory distress, no accessory muscle use, + pertinent finding (pacer site, left upper chest - incision clean, no erythema, no hematoma ) Cardiovascular: + pertinent finding (irregular, s1, s2, 2/6 systolic murmur LSB ) Abdomen: normal bowel sounds, non tender, soft, no organomegaly Extremities: + pedal edema Neurologic/Psychiatric: alert, oriented x 3 Skin: + pertinent finding (LEs wrapped in large dressings from just below the kness to the feet) Laboratory Results Last 24 Hours Test 10/11/16 20:28 10/12/16 00:17 10/12/16 03:40 10/12/16 05:32 Bedside Glucose 137 mg/dl 157 mg/dl 127 mg/dl White Blood Count 7.24 K/uL Red Blood Count 3.51 M/uL Hemoglobin 10.6 g/dL Hematocrit 33.2 % Mean Corpuscular Volume 94.6 fL Mean Corpuscular Hemoglobin 30.2 pg Mean Corpuscular Hemoglobin Concent 31.9 g/dl Platelet Count 205 K/uL Mean Platelet Volume 9.9 fL Neutrophils (%) (Auto) 70.8 % Lymphocytes (%) (Auto) 13.7 % Monocytes (%) (Auto) 10.6 % Eosinophils (%) (Auto) 4.3 % Basophils (%) (Auto) 0.3 % Neutrophils # (Auto) 5.13 K/uL Lymphocytes # (Auto) 0.99 K/uL Monocytes # (Auto) 0.77 K/uL Eosinophils # (Auto) 0.31 K/uL Basophils # (Auto) 0.02 K/uL RDW Standard Deviation 58.1 fL RDW Coefficient of Variation 16.8 % Immature Granulocyte % (Auto) 0.3 % Immature Granulocyte # (Auto) 0.02 K/uL Prothrombin Time 19.1 SECONDS Prothromb Time International Ratio 1.7 Sodium Level 133 mmol/L Potassium Level 5.9 mmol/L Chloride Level 95 mmol/L Carbon Dioxide Level 27 mmol/L Anion Gap 11.0 mmol/L Blood Urea Nitrogen 58 mg/dl Creatinine 9.00 mg/dl Est Creatinine Clear Calc Drug Dose 10.2 ml/min Estimated GFR () 6.1 Estimated GFR (Non- 5.3 BUN/Creatinine Ratio 6.6 Random Glucose 144 mg/dl Calcium Level 8.3 mg/dl Test 10/12/16 11:22 Bedside Glucose 172 mg/dl Assessment and Plan 71yo male with multiple medical problems including ESRD on HD M/W/, T2DM, a. fib on chronic coumadin, PAD, morbid obesity, chronic respiratory failure on home O2 - who presented with borderline shock and slow a. fib (vs junctional rhythm). 1. severe, symptomatic bradycardia in the setting of chronic a. fib and hyperkalemia - POD #1 s/p pacemaker placement. CXR today without pneumothorax. Will check with cardiology to see when coumadin can be resumed. No further bradycardia or hypotension. 2. hyperkalemia - to have HD today. 3. ESRD on HD M/W/ - Dr. Flaherty managing. HD today. Cont phosphate binders, etc. 4. T2DM - controlled. Cont lantus 50 units BID + novolog. 5. PAD - continue aspirin therapy. 6. a. fib on chronic coumadin - will inquire with cardiology about when coumadin can be resumed. 7. chronic respiratory failure on home O2 - continue NC O2 3 liters. No evidence of complicating CHF or pneumonia. 8. chronic diastolic CHF - compensated. 9. FEN - renal/T2DM diet; fluid restrict to 1500cc/day. High K - due for HD today. 10. DVT proph - INR 1.7 today. 11. hyperlipidemia - statin agent. 12. chronic lower extremity wounds (venous stasis ulcers of left lower leg, right lower anterior leg, and stage 2 pressure ulcer of left second toe - POA) - wound care team redressed the legs today. Appreciate their consult. PT, OT consults appreciated; both recommending rehab referral to [facility] in process Continued [facility] stay due to: other (s/p pacemaker placement) Discharge planning: rehab hospital
[2016-10-13] VITALS (9 sets, daily range): BP systolic 75–187; BP diastolic 36–70; PULSE 61–93; TEMP 36.4–36.7; O2SAT 95–100
[2016-10-13 06:06] LABS: BASO % 0.2 %; BASO ABS # 0.02 K/uL (0-0.2); COMPLETE YES; HEMATOCRIT 32.9 % (42-52); IG% 0.4 %; LYMPH % 13.2 %; LYMPH ABS # 1.11 K/uL (1.2-3.4); MEAN CELL VOLUME 95.9 fL (80-100); MEAN CORPUSCULAR HEMOGLOBIN 30.3 pg (25-34); MEAN CORPUSCULAR HGB CONC 31.6 g/dl (32-36); MEAN PLATELET VOLUME 9.9 fL (7.4-10.4); MONO % 5.8 %; NEUT % 77.4 %; PLATELET COUNT 209 K/uL (130-400); RED BLOOD COUNT 3.43 M/uL (4.7-6.1); WHITE BLOOD COUNT 8.42 K/uL (4.8-10.8)
[2016-10-13 06:18] LABS: INR 1.4 (0.9-1.1)
[2016-10-13] MEDS: CALCIUM ACETATE 667MG GELCAP PO SCH ×3 (06:43→16:54)
[2016-10-13 07:00] LABS: CALCIUM 7.8 mg/dl (8.5-10.1); CREATININE 6.5 mg/dl (0.60-1.40); POTASSIUM 5.5 mmol/L (3.5-5.1)
--- NOTE | 2016-10-13 09:53 | NEPHROLOGY PROGRESS NOTE ---
DATE: 10/13/2016 SUBJECTIVE: Mr. Cabrera says that he is feeling relatively well. He has no specific symptoms of uremia or volume overload. He has had no chest pain. He denies having any shortness of breath at rest. He has no cough. He has no significant discomfort at the site of his implanted pacemaker. Apparently, plans are in order for him to be transferred to [facility] later today. OBJECTIVE: GENERAL: On physical exam at the current time he appears about the same. He was sitting comfortably out of bed. VITAL SIGNS: Showed him to be afebrile (36.4), his blood pressure when seen by me was 104/51, his heart rate 67 and irregular, respiratory rate is 20, his pulse ox 95-97% on 3 liters of nasal oxygen. SKIN: Shows normal skin turgor. He has changes of seborrheic dermatitis on his face. He has very dry skin on his distal lower extremities. He has scars from prior surgical procedures. LYMPHATICS: Show no palpable lymphadenopathy. HEAD: Normal. EYES: Grossly normal. The ocular fundi were not examined. EARS, NOSE, MOUTH AND THROAT: Unremarkable. Oral mucous membranes are moist. NECK: Supple. There is no obvious jugular venous distention, but the exam is limited because of his body habitus. I hear no carotid bruits. There is no thyromegaly. CHEST: Shows him to have elevated hemidiaphragms related to his body habitus, as well as diminished breath sounds at the bases. His chest is otherwise clear to auscultation with no wheezes, rales or rhonchi. CARDIAC: Shows a slightly irregular rhythm with a controlled rate. He has a grade 2/6 systolic murmur loudest at the base and radiating toward the neck. ABDOMEN: Grossly obese, but nontender. There is no organomegaly or mass, but again the exam is limited by his body habitus. EXTREMITIES: Show trace to 1+ firm lower extremity edema with the dry skin on his feet. Peripheral pulses are diminished. NEUROLOGIC: Shows no lateralizing changes. PERTINENT LABORATORY WORK: From today, shows a white count of 8420 with 77.4% neutrophils, 13.2% lymphocytes, 5.8% monocytes, 3.0% eosinophils and 0.2% basophils. His hemoglobin is 10.4, his hematocrit 32.9, his platelet count 209,000. His prothrombin time is 15 seconds with an INR of 1.4. Clinical chemistries show a sodium of 135 mmol/L, potassium 5.5 mmol/L, chloride 98 mmol/L, and CO2 content 28 mmol/L. His BUN is 45, creatinine 6.50. Blood sugars vary from 124-161. His serum calcium 7.8. ASSESSMENT: Mr. Cabrera appears to be reasonably stable. He now has a pacemaker in place. His blood pressure remains somewhat variable but still low, although he is totally asymptomatic at least at rest. PLAN: He is apparently to be transferred to [facility] later today. He should be continued on his current medications. Will arrange for dialysis to be provided there.
[2016-10-13] MEDS: GABAPENTIN 100 MG CAP PO SCH (09:56)
[2016-10-13] MEDS: ASPIRIN 81 MG ECTAB PO SCH (09:56)
[2016-10-13] MEDS: CEROVITE ADV FORMULA TAB PO SCH (09:56)
[2016-10-13] MEDS: DOCUSATE SODIUM 100 MG CAP PO SCH (09:56)
[2016-10-13] MEDS: CINACALCET 30 MG TAB PO SCH (09:56)
[2016-10-13] MEDS: PANTOprazole SOD 40 MG TAB PO SCH (09:56)
[2016-10-13] MEDS: ALLOPURINOL 100 MG TAB PO SCH (09:56)
[2016-10-13] MEDS: POLYETHYLENE (MIRALAX) 17 GM PACK PO SCH (09:57)
[2016-10-13] MEDS: INSULIN ASPART 100 UNITS/ML 3 ML PEN SC SCH ×4 (10:04→20:54)
[2016-10-13] MEDS: INSULIN GLARGINE SC SCH ×2 (10:05→21:05)
--- NOTE | 2016-10-13 10:48 | Cardiology Follow-Up ---
Subjective Subjective Date of Service: Oct 13, 2016. Pt evaluation today including: conversation w/ patient, physical exam, chart review, lab review, review of studies, review of inpatient medication list Additional Details: Pt seen and examined, states that he feels well. Anxious for discharge. Denies cp, sob, palpitations, lightheadedness or dizziness. Tele reviewed: afib with transient v-pacing Problem List Medical Problems: (1) Ambulatory dysfunction Status: Acute (2) Hyperkalemia Status: Acute (3) Weakness Status: Acute Review of Systems Constitutional: No fever ENT: + nasal symptoms Respiratory: No cough, No dyspnea at rest Cardiac: No chest pain, No orthopnea Abdomen: No pain Objective Vital Signs Last Vital Signs Documentation Date Time Temp Pulse Resp B/P Pulse Ox O2 Delivery O2 Flow Rate FiO2 10/13/16 04:00 97 Nasal Cannula 3.0 10/13/16 03:50 36.4 62 20 75/43 Physical Exam: General Appearance: no apparent distress, + obese Eyes: bilateral eyes EOMI, bilateral eyes PERRL, bilateral eyes normal inspection ENT: pharynx normal Neck: no JVD Respiratory/Chest: lungs clear, no respiratory distress, no accessory muscle use, + pertinent finding (pacer site, left upper chest - incision clean, no erythema, no hematoma ) Cardiovascular: regular rate, rhythm, no JVD, no murmur, + gallop/S4, + pertinent finding Abdomen: normal bowel sounds, non tender, soft, no organomegaly Extremities: non-tender, no calf tenderness, + pedal edema Neurologic/Psychiatric: senior 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 symptomatic bradycardia s/p PPM placement tolerated well now pacing 66% overnight 2. ESRD HD nephrology following 3. atrial fibrillation restart coumadin could also restart dig but will hold off for now ok to d/c to rehab from cardiac standpoint. Continued [facility] stay due to: other (s/p pacemaker placement) Discharge planning: rehab hospital
--- NOTE | 2016-10-13 13:40 | Pharmacy Progress Note ---
Glycemic Control: Progress Nt Date of Service Oct 13, 2016. Scope Glycemic Pharmacist consulted by Dr Serrano on 10/11/16 for glycemic control and to write orders per [facility] inpatient glycemic control protocol. Objective Accuchecks BSG (last 24hrs): Test 10/12/16 16:27 10/12/16 21:00 10/13/16 05:51 10/13/16 06:43 Bedside Glucose 124 mg/dl (70-99) 161 mg/dl (70-99) 142 mg/dl (70-99) Random Glucose 142 mg/dl (70-99) Laboratory Data (last 24hrs) Test 10/13/16 05:51 Anion Gap 9.0 mmol/L BUN/Creatinine Ratio 7.0 Blood Urea Nitrogen 45 mg/dl Creatinine 6.50 mg/dl Potassium Level 5.5 mmol/L Sodium Level 135 mmol/L White Blood Count 8.42 K/uL Red Blood Count 3.43 M/uL Hemoglobin 10.4 g/dL Hematocrit 32.9 % Mean Corpuscular Volume 95.9 fL Mean Corpuscular Hemoglobin 30.3 pg Mean Corpuscular Hemoglobin Concent 31.6 g/dl Platelet Count 209 K/uL Mean Platelet Volume 9.9 fL Neutrophils (%) (Auto) 77.4 % Lymphocytes (%) (Auto) 13.2 % Monocytes (%) (Auto) 5.8 % Eosinophils (%) (Auto) 3.0 % Basophils (%) (Auto) 0.2 % Neutrophils # (Auto) 6.52 K/uL Lymphocytes # (Auto) 1.11 K/uL Monocytes # (Auto) 0.49 K/uL Eosinophils # (Auto) 0.25 K/uL Basophils # (Auto) 0.02 K/uL Recent Pertinent Medications Outpatient Anti-diabetic Regimen: * Toujeo 60 units SQ BID * Novolog per sliding scale The patient is currently receiving: * Basal insulin: Lantus 50 units every 12 hours * Correctional Insulin: Novolog Correction per scale ACHS Goal Range: Low 140 mg/dL - High 180 mg/dL Correction Factor: 15 mg/dL/unit * Prandial insulin: Per carb ratio of 1 unit per 5 grams CHO consumed * Oral Agents: none currently Risk Factors for Insulin Resistance: * Recent Surgery: POD # 2 s/p pacer * Diet: ordered T2DM / Renal diet and tolerating well per carb counts Assessment & Plan ASSESSMENT: 10/12/16 * Basal / bolus SQ regimen was adjusted yesterday evening in response to AM and early afternoon hyperglycemia * Stressors have lessened over the last 24 hours, no longer on dopamine for bradycardia, no longer on phenylephrine for pressure support * Patient is being dialyzed today - which usually leads to improved insulin sensitivity * Fasting BSG 127-144 this AM, will continue the current Lantus dose * Post-prandial BSG controlled after breakfast; current Novolog CF and CR are reasonable starting points, continue for now and BSG pattern 10/13/16 * Glycemic control acceptable over last 24 hrs: BSGs ranging 124-172 * Fasting BSG 142 this AM w/ 100 units Lantus on board * Post-prandial BSGs less than 180 and post-prandial rise less than 50mg/dL/unit * No HD orders today * Possible x-mónica to [facility] in near future PLAN FOR INPATIENT GLYCEMIC CONTROL: * Continuing Lantus 50 units SQ BID - give 1/2 dose if BSG less than 120 * Continuing correction factor 15 mg/dl/unit * Continuing carb ratio 1 unit per 5 grams CHO consumed * Changing goal range Low 130 mg/dL - High 160 mg/dL * Please note that the plan above was derived based on current level of insulin resistance and hospital stress. These recommendations are appropriate for inpatient admission only. Plan of care upon discharge will need to be reassessed to avoid potential outpatient hypo/hyperglycemia. Thank you.
[2016-10-13] MEDS ORDERED: WARFARIN SOD 5 MG TAB PO ONE (16:30)
--- NOTE | 2016-10-13 17:38 | OPERATIVE REPORT ---
DATE OF OPERATION: 10/11/2016 PREOPERATIVE DIAGNOSIS: Permanent atrial fibrillation with slow ventricular response. POSTOPERATIVE DIAGNOSIS: Same. PROCEDURE: Single chamber rate responsive permanent pacemaker under fluoroscopic guidance. SURGEON: Dr. Samanta Whitman. COLLARETTE SEPARATOR: None. ANESTHESIA: 4 mg of Versed, 100 mcg of fentanyl. START 12:10 END 13:07 IV FLUIDS: 100 mL. COMPLICATIONS: None. CONDITION: Stable. URINE OUTPUT: Not applicable. SPECIMENS: None. FINDINGS: None. BLOOD LOSS: Less than 20 mL. INDICATIONS: This is a 71-year-old gentleman who has a past medical history for permanent atrial fibrillation on Coumadin, diabetes, end-stage renal disease on hemodialysis, peripheral neuropathy, obstructive sleep apnea, noncompliant with his CPAP, peripheral vascular disease and venous insufficiency. The patient presented to the hospital with increased fatigue, lethargy and weakness and found to be in permanent atrial fibrillation with slow ventricular response in the 30. He was started on a dopamine drip until he is scheduled for a pacemaker. CONSENT: Consent was obtained prior to the patient going into the electrophysiology lab. The patient was informed of risks, benefits, alternatives to the procedure. Risks include but not limited to sudden cardiac , cardiac arrhythmias, cerebrovascular accident, myocardial infarction, injury to the blood vessels, chamber of the heart bleeding and the lung, bleeding and infection. The patient understood these risks and agreed to the procedure as planned. Informed consent was obtained. DESCRIPTION OF THE PROCEDURE: The patient was brought into the electrophysiology lab in a fasting state. He was connected to continuous cardiac monitoring. A timeout was performed to ensure patient's identity and procedure correctly. The patient was prepped and draped over the left infraclavicular space in a normal surgical standard fashion. Moderate conscious sedation was given throughout the procedure for patient's comfort level. [place] precautions were maintained through the procedure. A 20 mL of 1% lidocaine, bupivacaine mixture was given in the left deltopectoral groove. Incision was made in the left deltopectoral groove. Blunt dissection was performed down to identify the cephalic vein. The cephalic vein was identified, however, I did have to do a peripheral venogram to further delineate the cephalic vein using 10 mL of IV contrast diluted in 10 mL of saline followed by a 20 flush. Once I was able to visualize the location of the cephalic vein, I was able to then continue with blunt dissection finding, although was pretty deep. The vein was isolated using 0 silk ties and nicked with an 11 blade and a guidewire was inserted without any resistance. An 8-Iranian sheath was then inserted over the guidewire without any resistance. The guidewire and dilator were removed. A pacing lead was then advanced into the right ventricle and positioned into the right ventricular apex under fluoroscopic guidance. There was adequate pacing and sensing thresholds with no diaphragmatic stimulation with high output pacing. The 8-Iranian sheath was peeled away and the lead was fixated to the pectoralis muscle using 0 silk suture. Another 10 mL of 1% lidocaine, bupivacaine mixture was given in the pectoralis fascia. Then using blunt dissection over the pectoralis muscle within the fascia, a pacemaker pocket was created. The pocket was flushed with copious amounts of bacitracin saline wash and inspected for hemostasis. The pulse generator was then attached to the leads making sure that the pins were in appropriate position, passed the set screws and the set screw was tightened. The pulse generator was then placed in the pocket, making sure that the leads were lying flat beneath the device. A stay stitch using 0 silk suture was used to secure the device to the pectoralis muscle. Then the incision was closed in a 3-layer fashion using a 2-0 Vicryl suture followed by a 3-0 Vicryl interrupted suture followed by a 4-0 Monocryl running stitch and Dermabond was applied. EQUIPMENT: Pulse generator is Advisa SR MRI SureScan [id number] [employer], serial number [id number]. Right ventricular lead Medtronic 5076-65 cm, serial number [id number]. INTRAOPERATIVE TESTIN. Right ventricular R waves were 13.2 millivolts, impedance 874 ohms, and threshold 1.5 volts at 2 milliamps. FINAL MEASUREMENTS THROUGH THE DEVICE: R waves were 20 millivolts, impedance 627 ohms, threshold 1.25 volts at 0.4 milliseconds. FINAL PARAMETERS: VVIR 60/130. Right ventricular amplitude 3.5 volts, pulse width 0.4 milliseconds, sensitivity 0.9 millivolts. IMPRESSION: Successful implantation of a single chamber rate responsive permanent pacemaker under fluoroscopic guidance along with peripheral venogram secondary to permanent atrial fibrillation with slow ventricular response. PLAN: Monitor patient overnight, 12-lead ECG, chest x-ray. He is not allowed to lift left elbow over left shoulder for 1 month. He cannot lift more than 10 pounds with the left arm for 2 weeks. He cannot shoot a shotgun with his left shoulder. He can shower in 2 days; do not the scrub the incision, just let water run over it. He should follow up in our [facility] office in 7-10 days for device and wound check in our device clinic and he can restart his Coumadin. I attest to the content of the Intraoperative Record and any orders documented therein. Any exceptions are noted below. AUGUSTINE
[2016-10-13] MEDS: CALCIUM ACETATE 667MG GELCAP PO PRN ×3 (20:06→23:44)
--- NOTE | 2016-10-13 20:37 | Progress Note ---
Subjective Date of Service: Oct 13, 2016. Subjective Pt evaluation today including: conversation w/ patient, physical exam, chart review, lab review, conversation w/ service delivery consultant (cardiology - Dr. Siegel) Pain: mild left upper chest tenderness from pacer insertion site PO Intake: normal tele with ongoing, intermittent pacing he feels good today weakness is much better anxious to get to [facility] offers no complaints of sob, substernal chest pain, abd pain left leg dressing is mildly uncomfortable and he asks wound care to see him again Problem List Medical Problems: (1) Ambulatory dysfunction Status: Acute (2) Hyperkalemia Status: Acute (3) Weakness Status: Acute Review of Systems Respiratory: No cough Cardiac: No PND, No orthopnea Objective Vital Signs Date Time Temp Pulse Resp B/P Pulse Ox O2 Delivery O2 Flow Rate FiO2 10/13/16 18:37 87/50 10/13/16 18:35 36.7 61 18 77/36 97 Nasal Cannula 3.0 10/13/16 16:00 96 Nasal Cannula 3.0 10/13/16 16:00 36.6 72 18 109/41 96 Nasal Cannula 3.0 Humidified Oxygen 10/13/16 12:00 36.6 63 19 95/45 96 Nasal Cannula 3.0 Humidified Oxygen 10/13/16 12:00 95 Nasal Cannula 3.0 10/13/16 08:00 95 Nasal Cannula 3.0 10/13/16 08:00 36.6 66 14 104/51 96 Nasal Cannula 3.0 Humidified Oxygen 10/13/16 04:00 97 Nasal Cannula 3.0 10/13/16 03:50 36.4 62 20 75/43 96 Nasal Cannula 3.0 Humidified Oxygen 10/13/16 00:00 95 Nasal Cannula 3.0 10/12/16 23:20 36.6 67 18 85/39 95 Nasal Cannula 3.0 Humidified Oxygen Physical Exam General Appearance: no apparent distress, + obese ENT: pharynx normal Neck: no JVD Respiratory/Chest: lungs clear, no respiratory distress, no accessory muscle use Cardiovascular: + pertinent finding (irregular, s1, s2, 2/6 HUNG LSB) Abdomen: normal bowel sounds, non tender, soft, no organomegaly Extremities: + pedal edema, + swelling Neurologic/Psychiatric: alert, oriented x 3 Skin: + pertinent finding (pacer insertion site left upper chest clean; no hematoma) Comments: b/l LEs wrapped in dressings from the foot to just below the knees Laboratory Results Last 24 Hours Test 10/12/16 21:00 10/13/16 05:51 10/13/16 06:43 10/13/16 08:43 Bedside Glucose 161 mg/dl 142 mg/dl White Blood Count 8.42 K/uL Red Blood Count 3.43 M/uL Hemoglobin 10.4 g/dL Hematocrit 32.9 % Mean Corpuscular Volume 95.9 fL Mean Corpuscular Hemoglobin 30.3 pg Mean Corpuscular Hemoglobin Concent 31.6 g/dl Platelet Count 209 K/uL Mean Platelet Volume 9.9 fL Neutrophils (%) (Auto) 77.4 % Lymphocytes (%) (Auto) 13.2 % Monocytes (%) (Auto) 5.8 % Eosinophils (%) (Auto) 3.0 % Basophils (%) (Auto) 0.2 % Neutrophils # (Auto) 6.52 K/uL Lymphocytes # (Auto) 1.11 K/uL Monocytes # (Auto) 0.49 K/uL Eosinophils # (Auto) 0.25 K/uL Basophils # (Auto) 0.02 K/uL RDW Standard Deviation 59.4 fL RDW Coefficient of Variation 16.8 % Immature Granulocyte % (Auto) 0.4 % Immature Granulocyte # (Auto) 0.03 K/uL Prothrombin Time 15.0 SECONDS Prothromb Time International Ratio 1.4 Sodium Level 135 mmol/L Potassium Level 5.5 mmol/L Chloride Level 98 mmol/L Carbon Dioxide Level 28 mmol/L Anion Gap 9.0 mmol/L Blood Urea Nitrogen 45 mg/dl Creatinine 6.50 mg/dl Est Creatinine Clear Calc Drug Dose 14.5 ml/min Estimated GFR () 9.1 Estimated GFR (Non- 7.8 BUN/Creatinine Ratio 7.0 Random Glucose 142 mg/dl Calcium Level 7.8 mg/dl Test 10/13/16 16:13 Bedside Glucose 119 mg/dl Assessment and Plan 71yo male with multiple medical problems including ESRD on HD M/W/F, T2DM, a. fib on chronic coumadin, PAD, morbid obesity, chronic respiratory failure on home O2 - who presented with borderline shock and slow a. fib (vs junctional rhythm). He is now s/p permanent pacemaker placement. 1. severe, symptomatic bradycardia in the setting of chronic a. fib and hyperkalemia - POD #2 s/p pacemaker placement. Spoke with cardiology - ok to resume systemic coumadin. 2. hyperkalemia - ongoing issue despite regular HD sessions. Check cortisol level to exclude inge's disease, especially in light of intermittent low BPs. 3. ESRD on HD M/W/F - Dr. Flaherty managing. 4. T2DM - controlled. Cont lantus 50 units BID + novolog. 5. PAD - continue aspirin therapy. 6. a. fib on chronic coumadin - resume coumadin today. . 7. chronic respiratory failure on home O2 - continue NC O2 3 liters. Stable. 8. chronic diastolic CHF - compensated. 9. FEN - renal/T2DM diet; fluid restrict to 1500cc/day. Mild hyperkalemia - to have HD tomorrow. Check cortisol level, r/o inge's. 10. DVT proph - resume coumadin. 11. hyperlipidemia - statin agent. 12. chronic lower extremity wounds (venous stasis ulcers of left lower leg, right lower anterior leg, and stage 2 pressure ulcer of left second toe - POA) - s/p dressings per wound care. 13. intermittent hypotension - unclear why he has such. He is not on anti- hypertensives. Fortunately he is 100% asymptomatic from this. Check cortisol in am. CBC is stable and w/o signs of bleeding. Blood cx's neg and no signs/symptoms of any infectious process. No signs of cardiac dysfunction. accepted at [facility] PT, OT both agree with inpatient rehab transfer to the floor (med/surg unit is OK with cardiology team) hopefully to [facility] tomorrow Continued [facility] stay due to: other (s/p pacemaker placement) Discharge planning: rehab hospital
[2016-10-13] MEDS: SIMVASTATIN 40 MG TAB PO SCH (21:06)
[2016-10-14] VITALS (27 sets, daily range): BP systolic 84–121; BP diastolic 45–69; PULSE 50–71; TEMP 36.7–36.9; O2SAT 98–99
[2016-10-14 07:30] LABS: BASO % 0.5 %; BASO ABS # 0.04 K/uL (0-0.2); COMPLETE YES; EOS % 4.7 %; HEMATOCRIT 33.1 % (42-52); IG% 0.3 %; LYMPH % 18.6 %; LYMPH ABS # 1.39 K/uL (1.2-3.4); MEAN CORPUSCULAR HEMOGLOBIN 29.5 pg (25-34); MEAN CORPUSCULAR HGB CONC 31.4 g/dl (32-36); MEAN PLATELET VOLUME 10.5 fL (7.4-10.4); MONO % 6.7 %; NEUT % 69.2 %; PLATELET COUNT 255 K/uL (130-400); RED BLOOD COUNT 3.52 M/uL (4.7-6.1); WHITE BLOOD COUNT 7.46 K/uL (4.8-10.8)
[2016-10-14 07:37] LABS: INR 1.1 (0.9-1.1); PROTHROMBIN TIME (PATIENT) 12.2 SECONDS (9.0-12.0)
[2016-10-14 08:24] LABS: BUN/CREATININE RATIO 8.3 (10-20); POTASSIUM 5.3 mmol/L (3.5-5.1)
[2016-10-14] MEDS: POLYETHYLENE (MIRALAX) 17 GM PACK PO SCH (09:11)
[2016-10-14] MEDS: ASPIRIN 81 MG ECTAB PO SCH (09:12)
[2016-10-14] MEDS: DOCUSATE SODIUM 100 MG CAP PO SCH (09:12)
[2016-10-14] MEDS: CEROVITE ADV FORMULA TAB PO SCH (09:12)
[2016-10-14] MEDS: CALCIUM ACETATE 667MG GELCAP PO SCH ×2 (09:12→16:37)
[2016-10-14] MEDS: GABAPENTIN 100 MG CAP PO SCH (09:13)
[2016-10-14] MEDS: ALLOPURINOL 100 MG TAB PO SCH (09:14)
[2016-10-14] MEDS: CINACALCET 30 MG TAB PO SCH (09:14)
[2016-10-14] MEDS: PANTOprazole SOD 40 MG TAB PO SCH (09:14)
[2016-10-14] MEDS: INSULIN GLARGINE SC SCH (09:15)
[2016-10-14] MEDS: INSULIN ASPART 100 UNITS/ML 3 ML PEN SC SCH ×2 (09:20→16:45)
[2016-10-14] MEDS ORDERED: SODIUM CHLORIDE 0.9% 1000ML 1,000 ML IV PRN (09:28)
[2016-10-14] MEDS ORDERED: EPOETIN ALFA 10,000 UNITS/ML VIAL IV. ONE (09:30)
[2016-10-14] MEDS ORDERED: HEPARIN SOD (PORCINE) 1000 UNIT/ML 10 ML VIAL IV SCH (09:30)
--- NOTE | 2016-10-14 09:49 | NEPHROLOGY PROGRESS NOTE ---
DATE: 10/14/2016 SUBJECTIVE: Mr. Cabrera says that he is feeling relatively well. Apparently, his transfer to [facility] was delayed because they had no blood for him yesterday. He currently is asymptomatic. He denies any chest pain. He denies shortness of breath at rest and denies palpitations. He says that his appetite is good and he has no nausea. He has no other symptoms of uremia or volume overload and no other complicating issues. He denies having any excessive thirst. OBJECTIVE: GENERAL: On physical examination at the current time, he appears is a morbidly obese gentleman, who is sitting comfortably in his chair. VITAL SIGNS: His temperature is 36.9, his blood pressure varied from 84/58 to 102/57. His pulse is 62 and regular (probable paced rhythm). Expiratory rate is 14-18 and his pulse ox is 97%-100% on 3 liters of oxygen via nasal cannula. SKIN: Shows normal skin turgor. He has no rash or infiltrative skin disease. He has scars from prior surgical procedures, most notably a scar in the right antecubital fossa from the creation of his right upper arm AV fistula with multiple dialysis needle tract henry and scars over the fistula. There is a healing surgical incision beneath the distal left clavicle from the recent placement of his pacemaker. He has changes of seborrheic dermatitis on his face. He has some dry and scaly skin on his distal lower extremities as well as some minimal changes of venous stasis dermatitis. LYMPHATICS: Show no palpable lymphadenopathy. HEAD: Normal. EYES: Grossly normal. The ocular fundi were not examined. EARS, NOSE, MOUTH AND THROAT: Unremarkable. His oral mucous membranes are moist. NECK: Supple. I see no jugular venous distention with him sitting at 90 degrees, but the exam is limited by his body habitus. There are no carotid bruits and he has no thyromegaly. CHEST: Clear to auscultation. Diaphragms are somewhat elevated related to his body habitus. Breath sounds are slightly diminished at the bases. There are no wheezes, rales or rhonchi. CARDIAC: Shows a regular rhythm (probably paced). He has a grade 2/6 systolic murmur loudest at the base and radiating toward the neck. No diastolic murmurs are heard. He has no gallops or rubs. ABDOMEN: Grossly obese, it is nontender. There is no organomegaly or mass, but again the exam is limited by his body habitus. EXTREMITIES: Show trace to 1+ firm lower extremity edema with the dry skin on his feet as noted. Peripheral pulses are difficult to feel, but are present. NEUROLOGIC: Shows no lateralizing changes. LABORATORY DATA: Laboratory work from today shows a white count of 7460 with a normal differential. His hemoglobin is 10.4, his hematocrit 33.1, and his platelet count is 255,000. His clinical chemistries show a sodium of 134 mEq/L, potassium 5.3 mEq/L, chlorides 96 mEq/L and CO2 content 26 mEq/L. His BUN is 75 and creatinine 9.00. Blood sugars vary from 132 to 211. His serum calcium is 8.0. A.m. cortisol level is 15.61, which is within the normal range. ASSESSMENT: Mr. Cabrera is stable. He has end-stage renal disease related to his morbid obesity, diabetes, hypertension and atherosclerotic cardiovascular disease as well as a cardiorenal syndrome. He is perfectly stable. He now has a pacemaker. His blood pressure remains low and that is a chronic situation nonetheless it does not appear to affect his sense of wellbeing or his tolerance for dialysis. PLAN: Continue with all of his current medications. Inpatient dialysis will be done today. Hopefully, we will be able to transfer to [facility] either later today or during the weekend.
[2016-10-14] MEDS ORDERED: EPOETIN ALFA INJ 5,000 UNITS in SYRINGE 0 ML IV. SCH (10:00)
[2016-10-14] MEDS ORDERED: WARFARIN SOD 5 MG TAB PO SCH (16:00)
[2016-10-14] MEDS ORDERED: NVLGIPEN SC (16:04)
--- NOTE | 2016-10-14 16:09 | Discharge Instructions ---
Discharge Instructions Admission Reason for Admission: Atrial Fibrillation W/ Slow Ventricular Response Discharge Discharge Diagnosis / Problem: Slow a. fib, s/p pacemaker insertion. Discharge Goals Goal(s): Learn about illness, Diagnostic testing, Therapeutic intervention Activity Recommendations Activity Level: Assistance Required Therapies: Physical Therapy, Occupational Therapy ACTIVITY RECOMMENDATIONS following pacemaker insertion: * Do not raise LEFT arm over head for 2 weeks. SPECIAL CARE INSTRUCTIONS: * If bleeding occurs, apply direct pressure to area for 5 minutes. * Call your doctor if you have severe pain, fever, drainage or bleeding at site. * Keep dressing on and dry for 48 hours then remove. * Keep any scheduled doctor's appointment. * Implant Card - hand held device with website information given. SKIN IRRITATION: * You may experience some redness and/or swelling in the area where radiation was administered. If any skin irritation occurs, please contact your family physician. . Additional Information Patient informed of condition: Yes Advance Directives: No DNR: No Level of Care: Acute Rehab Communicable Disease: No Prognosis: Stable Oxygen at (LPM): 3 liters continuously Juan Catheter: No Instructions / Follow-Up Instructions / Follow-Up 1. Patient needs to see [facility] within 1-2 weeks for pacemaker check. Their office will arrange follow-up appointment. 2. Hemodialysis on 10/17/16. Current Hospital Diet Patient's current hospital diet: Diabetes Type 2 Diet, Renal Diet Discharge Diet Recommended Diet: Diabetes Type 2 Diet, Renal Diet Fluid Restriction: 1500 ml (6 cups) Procedures Procedures Performed: SINGLE CHAMBER RATE RESPONSIVE PPM AND PERIPHERAL VENOGRAM Pending Studies Studies pending at discharge: no Physician Orders On Transfer Special Precautions: Do not raise left arm above the level of the shoulder for 2 weeks. Vital Signs: per [facility] routine Weigh: daily Additional Orders: Patient has hemodialysis every MONDAY, MONDAY, and MONDAY. Received dialysis at [facility] on 10/14/16. POLST Discussion: Not Applicable Medical Emergencies . Who to Call and When: Medical Emergencies: If at any time you feel your situation is an emergency, please call 911 immediately. . Non-Emergent Contact Non-Emergency issues call your: Produce Department Manager Call Non-Emergent contact if: temperature is above 100.5, your pain is not controlled, your pain is worsening, your pain is unusual for you, your pain is concerning you, wound has increased drainage, wound has increased redness, wound has increased pain, you have any medication questions . . "Provider Documentation" section prepared by Tin Coronado. Core Measure Problem Core Measures: None
[2016-10-14] MEDS ORDERED: HYDR-5688 PO (16:10)
--- NOTE | 2016-10-14 18:55 | Discharge Summary ---
Discharge Summary Admission Date: Oct 10, 2016 at 13:24 Discharge Date: Oct 14, 2016 Discharge Disposition: Rehab ([facility] ) Principal Diagnosis: symptomatic bradycardia s/p permanent pacemaker placement Problems/Secondary Diagnoses: 1. chronic atrial fibrillation 2. ESRD on HD Mon/Mon/Monday 3. morbid obesity 4. chronic respiratory failure on 3 L NC O2 5. PAD 6. T2DM 7. hyperlipidemia 8. chronic lower extremity wounds 9. hyperkalemia - resolved, 2nd to ESRD 10. chronic diastolic CHF Immunizations: Have You Had Influenza Vaccine: Unknown History of Tetanus Vaccine?: Unknown History of Pneumococcal: Unknown History of Hepatitis B Vaccine: Unknown Procedures: 1. central venous catheter placement 2. permanent pacemaker placement - Samanta Whitman DO Consultations: 1. cardiology - Donald Siegel DO / Samanta Whitman DO 2. critical care - Vicente Serrano DO 3. nephrology - Tin Flaherty MD 4. PT, OT 5. enterostomy Medication Reconciliation New Medications: Hydrocodone/Acetaminophen 5MG/325MG ([place] 5MG/325MG) Tab 1 TABLET PO Q4H PRN for Pain, #15 TAB 0 Refills Insulin Aspart (Novolog Flexpen) 100 Units/Ml Inj 0 UNITS SC AC, #1 goal range: 125-150. use correction factor of 15 use carbohydrate ratio of 1 unit of insulin for every 5 grams of carbohydrates consumed. Continued Medications: Acetaminophen (Tylenol) 325 Mg Tab 650 MG PO Q4 PRN for Mild Pain, TAB Allopurinol (Zyloprim *) 100 Mg Tab 100 MG PO DAILY, 0 Refills Aspirin (Aspirin Ec) 81 Mg Tab 81 MG PO DAILY Calcium Acetate (Phoslo 667 Mg) 667 Mg Cap 2001 MG PO TIDM, 0 Refills take 3 caps with each meal Calcium Acetate (Phoslo 667 Mg) 667 Mg Cap 1-2 CAP PO UD PRN for WITH SNACKS Cinacalcet (Sensipar) 30 Mg Tab 60 MG PO DAILY WITH EVENING MEAL Darbepoetin (Aranesp Albumin Free) 60 Mcg/0.3 Ml Inj every monday x 3 dos Docusate Sodium (Colace) 100 Mg Cap 1 CAP PO QAM for 30 Days, #30 CAP Gabapentin (Bulk) (Gabapentin) 1 Pow Pow 100 MG PO DAILY Insulin Glargine (Toujeo Solostar) 300 Unit/Ml Inj 60 UNITS SC BID Multivitamins/Minerals (Mvi With Minerals) Tab 1 TAB PO DAILY, TAB Oxygen (Oxygen) Gas 3 LITERS NA CONTINOUS Paricalcitol (Zemplar Inj) 5 Mcg/ Inj 2 MCG IV 3 TIMES A WEEK, VIAL GIVEN ON MON, WED & FRI BY DIALYSIS NURSE Polyethylene Glycol 3350 (Miralax) 1 Pow Pow 17 GM PO 3XWK Simvastatin (Zocor) 40 Mg Tab 40 MG PO QPM Warfarin Sodium (Coumadin) 5 Mg Tab 5 MG PO HS Discontinued Medications: Digoxin (Lanoxin) 0.125 Mg Tab 0.125 MG PO 3XWK, TAB TUES,THURS,SAT Insulin Aspart (Novolog) 100 Unit/ Inj 0 SC WM SLIDING SCALE Referrals At Discharge Follow up Referrals: Desk Officer Referral - Within 1-2 Weeks with Samanta Whitman D.O. Discharge Exam Physical Exam: General Appearance: no apparent distress, + obese ENT: pharynx normal Neck: no JVD Respiratory/Chest: lungs clear, no respiratory distress, no accessory muscle use, + pertinent finding (pacemaker insertion site/incision clean, no drainage, no hematoma ) Cardiovascular: regular rate, rhythm, no gallop, normal peripheral pulses, + systolic murmur (2/6 LSB) Abdomen / GI: normal bowel sounds, non tender, soft, no organomegaly Extremities: + pedal edema, + pertinent finding (AV fistula RUE, +thrill, + bruit ) Neurologic/Psychiatric: alert, oriented x 3 Skin: + pertinent finding (LEs with dressings in place) Hospital Course HISTORY OF PRESENT ILLNESS: 71yo male with ESRD on HD M// at [facility], followed by Dr. Flaherty, as well as T2DM, PAD, JORJE, chronic resp failure on home O2, chronic diastolic CHF, and atrial fibrillation who presented today with significant weakness starting Monday. He was in his usual state of health until the weekend when his legs became very weak to the point of not being able to stand or walk. He normally can walk about 50-60 feet with the aid of a walker. He otherwise denies any chest pain, sob, dyspnea with exertion, orthopnea, PND, fevers, chills, sweats, sore throat , vomiting, diarrhea, myalgias, arthralgias, or recent illness(es). He denies any sick contacts. Denies any falls despite the weakness. He denies focal motor weakness of the arms or legs (does have baseline mild weakness of the left leg from childhood polio but denies any recent change in this). He has had some blurry vision in the last few days. He reports that he does NOT make any urine on a chronic basis. He takes digoxin three days a week on //Monday and has had all of his doses as prescribed. The only other change in his health was that of his insulin. His PCP recently changed his Lantus to Toujeo and he was supposed to take the latter twice daily. However, the Toujeo was in pen form and he did not know how to manipulate the pen. Therefore, he went several days this past week without any long-acting insulin. His son showed him how to use the pen and he did resume the Toujeo yesterday. FSBS's have been in the upper 100s to 200s since restarting the Toujeo. Upon ER presentation today the patient was noted to have mildly low BP and a very slow heart rate of about 40 BPM. EKG showed (my interpretation) either junctional rhythm vs a slow a. fib. At that point we were contacted for admission. Initial labs showed a serum potassium of [address] Flaherty was consulted to perform hemodialysis on day of admission. HOSPITAL COURSE: The patient was admitted to the ICU and started on dopamine infusion via central line. He received emergency hemodialysis, coordinated by Dr. Tin Flaherty, for his hyperkalemia as there was considerable concern that it was contributing to his dysrhythmia. Following dialysis and institution of the dopamine infusion his BP and HR quickly improved. He was seen in consult by [facility] (Marco Siegel & J Carlos, respectively) who recommended permanent pacemaker placement due to a. fib with slow ventricular response. On 10/11/16 he underwent pacemaker placement by Dr. Whitman without incident. Following his pacemaker insertion the remainder of his hospitalization was uneventful. Telemetry monitoring showed that he was pacing more than 50% of the time. Labs and vitals otherwise remained stable. He did have occasional episodes of mild hypotension with systolic BPs in the 80s but he was asymptomatic from such. Due to the low BP a cortisol level was checked and was found to be normal. He had no evidence of an infection while here with negative blood cultures. The wound care team was consulted for management of his chronic LE wounds. He is followed by home health as well as [facility] in [place]. Dressings were placed to the lower extremities on 10/14/16 using coban lite compression wraps. These will need to be changed on 10/16/16. He will need follow-up with Dr. Whitman's office within 1-2 weeks of discharge for pacemaker check. Pacemaker incision site was clean and dry at time of discharge. All other medical problems remained stable while hospitalized. Due to the patient's weakness he was seen by PT/OT who recommended inpatient rehab following discharge. He will transfer to [facility] for such. Total Time Spent: Greater than 30 minutes This includes examination of the patient, discharge planning, medication reconciliation, and communication with other providers. Discharge Instructions Please refer to the electronic Patient Visit Report (Discharge Instructions) for additional information. Follow-Up 1. Patient needs to see [facility]iology within 1-2 weeks for pacemaker check. Their office will arrange follow-up appointment. 2. Hemodialysis on 10/17/16. Additional Copies To Donald Siegel D.O.; Tin Flaherty M.D.; [facility]; Sarthak Nowak M.D.; Sarthak Gracia M.D.; Samanta Whitman D.O.
[2016-10-20] MEDS ORDERED: PANT40TA PO (09:03)
[2016-10-20] MEDS ORDERED: CINA60TA PO (09:03)
[2016-10-20] MEDS ORDERED: GABA1CAP PO (09:03)
[2016-10-20] MEDS ORDERED: OXYC-57 PO (09:03)
[2016-12-02] MEDS ORDERED: [UNRECOGNIZED DRUG - OTHER] PO (07:59)
[2017-02-24] MEDS ORDERED: LEVO25TA PO (07:42)
[2017-02-27] MEDS ORDERED: CEPH500C2 PO (14:12)
[2017-03-08] MEDS ORDERED: AMX500 PO (08:54)
[2017-03-08] MEDS ORDERED: DXY100 PO (08:54)
[2017-04-05] MEDS ORDERED: ACET-1311 PO (11:26)
[2017-04-12] MEDS ORDERED: DOXY100C76 PO (07:45)
[2017-04-12] MEDS ORDERED: AMOX500C3 PO (07:45)
[2017-04-12] MEDS ORDERED: POVI10SO38 TOP (16:13)
[2017-04-12] MEDS ORDERED: SODIENE PR (16:13)
[2017-04-12] MEDS ORDERED: MULTTAB63 PO (16:13)
[2017-04-12] MEDS ORDERED: BISA10SU38 PR (16:13)
[2017-04-12] MEDS ORDERED: MOML PO (16:13)
[2017-04-12] MEDS ORDERED: NYSTATIN POWDER TOP (16:14)
[2017-04-13] MEDS ORDERED: OXYC-57 PO ×2 (15:42→15:56)
[2017-05-25] MEDS ORDERED: CEPH500C2 PO (13:07)
[2017-06-09] MEDS ORDERED: LVQ250 PO (15:15)
[2017-06-09] MEDS ORDERED: DFL100 PO (15:15)
[2017-06-09] MEDS ORDERED: KFL250 PO (15:15)
[2017-06-09] MEDS ORDERED: GABA1CAP PO (15:15)
[2017-06-09] MEDS ORDERED: NZRCR TOP (15:30)
== END 2016-10-14 17:36 | DRG 242 ==
LOC: ENRESERVTM → ENRESERVDT → C.EDB 09:32 → C.MSICU 13:24 → EDBEDREQ 10-13 16:56 → EDBEDREQSVC 10-13 16:56 → C.MSN 10-13 18:31
PROVIDERS: ADMIT Internal Medicine; ATTEND Internal Medicine
PROC: 02HV33Z Insertion of Infusion Device into Superior Vena Cava, Percutaneous Approach (ICD-10-PCS; 2016-10-10)
PROC: 5A1D00Z (ICD-10-PCS; 2016-10-10)
PROC: 0JH635Z Insertion of Pacemaker, Single Chamber Rate Responsive into Chest Subcutaneous Tissue and Fascia, Percutaneous Approach (ICD-10-PCS; principal; 2016-10-11 12:56)
PROC: 02HK3JZ Insertion of Pacemaker Lead into Right Ventricle, Percutaneous Approach (ICD-10-PCS; principal; 2016-10-11 12:56)
DX: I48.2 Chronic atrial fibrillation (principal); I48.1 Persistent atrial fibrillation; J96.10 Chronic respiratory failure, unspecified whether with hypoxia or hypercapnia; N18.6 End stage renal disease; I50.32 Chronic diastolic (congestive) heart failure; Z68.43 Body mass index [BMI] 50.0-59.9, adult; G47.33 Obstructive sleep apnea (adult) (pediatric); Z99.81 Dependence on supplemental oxygen; E66.01 Morbid (severe) obesity due to excess calories; I83.019 Varicose veins of right lower extremity with ulcer of unspecified site; I73.9 Peripheral vascular disease, unspecified; I83.029 Varicose veins of left lower extremity with ulcer of unspecified site; Z79.01 Long term (current) use of anticoagulants; Z85.51 Personal history of malignant neoplasm of bladder; E11.21 Type 2 diabetes mellitus with diabetic nephropathy; D63.1 Anemia in chronic kidney disease; E87.5 Hyperkalemia; I27.2 Other secondary pulmonary hypertension; I48.92 Unspecified atrial flutter; Z99.2 Dependence on renal dialysis; Z86.12 Personal history of poliomyelitis

== ENCOUNTER 2016-12-04 14:23 | Inpatient (IN) | payer OTHER, MEDICARE ==
[~2016-12-04] VITALS: Ht 170.2 cm; Wt 149.3 kg
[~2016-12-04 14:23] MED LIST changes: -ACET-1311 PO; -ALBUAER INH; -ARNI60; -DIGO0.122 PO; -GABA10PO PO; +GABA1CAP PO; +INSU1.2I SC; -INSUINJ4 SQ; -MULT-513 PO; -NVLGI SC; +NVLGIPEN SC; -[UNRECOGNIZED DRUG - CODE] IV; -[UNRECOGNIZED DRUG - OTHER] IV; -[UNRECOGNIZED DRUG - OTHER] IV; +[UNRECOGNIZED DRUG - OTHER] PO
--- NOTE | 2016-12-04 15:20 | DIAGNOSTIC IMAGING REPORT ---
CHEST ONE VIEW PORTABLE CLINICAL HISTORY: Chest pain. COMPARISON STUDY: Chest radiograph October 12, 2016. FINDINGS: A left subclavian pacemaker and a vascular stent projecting over the right upper hemithorax are again noted. Mild cardiomegaly is unchanged. There is no pneumothorax or pleural effusion. Linear bibasilar opacities favor atelectasis. Left basilar opacity is noted. Mild interstitial thickening is unchanged. IMPRESSION: 1. Left lower lung airspace opacity which may reflect atelectasis or consolidation. Short-term radiographic follow up is recommended. 2. Stable cardiomegaly without evidence of pulmonary edema. Electronically signed by: Adin Mari M.D. 12/04/2016 3:19 PM Dictated Date/Time: 12/04/2016 3:15 PM
[2016-12-04 15:45] LABS: BASO % 0.2 %; BASO ABS # 0.02 K/uL (0-0.2); COMPLETE YES; EOS % 1.6 %; HEMATOCRIT 29.5 % (42-52); IG% 0.1 %; LYMPH % 9.4 %; LYMPH ABS # 0.96 K/uL (1.2-3.4); MEAN CELL VOLUME 95.5 fL (80-100); MEAN CORPUSCULAR HEMOGLOBIN 29.8 pg (25-34); MEAN CORPUSCULAR HGB CONC 31.2 g/dl (32-36); MEAN PLATELET VOLUME 9.5 fL (7.4-10.4); MONO % 5.2 %; NEUT % 83.5 %; PLATELET COUNT 277 K/uL (130-400); RED BLOOD COUNT 3.09 M/uL (4.7-6.1); WHITE BLOOD COUNT 10.25 K/uL (4.8-10.8)
[2016-12-04] MEDS ORDERED: POLY335025 PO (15:45)
[2016-12-04 15:55] LABS: INR 1.3 (0.9-1.1); PARTIAL THROMBOPLASTIN RATIO 1.4; PROTHROMBIN TIME (PATIENT) 14.1 SECONDS (9.0-12.0)
[2016-12-04 15:57] LABS: POINT OF CARE TROPONIN I 0.03 ng/ml (0-0.045)
--- NOTE | 2016-12-04 16:05 | DIAGNOSTIC IMAGING REPORT ---
CT OF THE HEAD WITHOUT CONTRAST CLINICAL HISTORY: Generalized weakness COMPARISON STUDY: Head CT December 18, 2014 CT DOSE: 1228.24 mGy.cm TECHNIQUE: Helical axial images of the head were obtained without IV contrast. Automated exposure control was utilized for the study. FINDINGS: No acute intracranial hemorrhage, midline shift or mass effect is present. Ventricular system is normal. The basilar cisterns are patent. There are no extra-axial collections. White matter hypodensities suggest mild small vessel disease. There are no findings to suggest acute dural sinus thrombosis or acute territorial infarct. There is no calvarial fracture. There is mild mucosal thickening of the ethmoid and right sphenoid sinuses. IMPRESSION: No acute intracranial findings. Electronically signed by: Adin Mari M.D. 12/04/2016 4:04 PM Dictated Date/Time: 12/04/2016 4:01 PM
[2016-12-04 16:17] LABS: BUN/CREATININE RATIO 7.8 (10-20); CALCIUM 8.6 mg/dl (8.5-10.1); POTASSIUM 4.8 mmol/L (3.5-5.1)
[2016-12-04 16:18] LABS: CREATININE 8.1 mg/dl (0.60-1.40)
[2016-12-04] MEDS ORDERED: SODIUM CHLORIDE 0.9% 500ML 500 ML IV SCH (17:15)
[2016-12-04] MEDS ORDERED: GLUCOSE 10 TABS/TUBE PO PRN (17:30)
[2016-12-04] MEDS ORDERED: DEXTROSE 50% 50 ML SYR IV PRN (17:30)
[2016-12-04] MEDS ORDERED: GLUCOSE 40% GEL 15 GM TUBE PO PRN (17:30)
[2016-12-04] MEDS ORDERED: GLUCAGON FOR INJ 1 MG VIAL SQ PRN (17:30)
[2016-12-04] MEDS ORDERED: ONDANSETRON INJ 2 MG/ML 2 ML VIAL IV PRN (17:45)
--- NOTE | 2016-12-04 19:39 | HISTORY & PHYSICAL EXAMINATION ---
DATE OF ADMISSION: 12/04/2016 CHIEF COMPLAINT: Weakness. ADMITTING DIAGNOSIS: Hypotension. HISTORY OF PRESENT ILLNESS: Mr. Cabrera is a 71-year-old male who is end-stage renal disease, dialysis dependent patient. He was discharged from our facility on October 14, went to [facility]. The patient states that he did not do well at the [facility] and the fact that he did not even get to walk. The patient went home and was riding his scooter around for most of the time since he has left. The patient states that he tried to go to the bathroom today which is his usual pattern for him, when he was unable to bear weight to transfer and actually fell to the ground and had to be lifted by his 2 sons. He feels he is more profoundly weak with his arms and legs, cannot transfer himself safely from his scooter to bed or chair and presented to the Emergency Department. In the Emergency Department after evaluation, he had lower blood pressure, but the remainder of his studies appeared in line with his normal condition. He did have a slightly subtherapeutic INR of 1.3, but he had a chest x-ray without volume overload and a CT scan of his head which was unremarkable. The patient's glucose was 148, he did not check his glucose at home when he was weak. Otherwise, he has no other infectious symptoms. The patient has been nursing a painful left knee since he left the hospital during his last stay with us. The patient's end-stage renal diseases is likely multifactorial related to hypertension and likely end-organ damage from diabetes. 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 MEDICATIONS: Include hydrocodone as needed, sliding-scale insulin, Toujeo 60 units b.i.d., allopurinol 100 a day, aspirin a day 81, calcium acetate 2000 t.i.d., Sensipar 60 daily, Aranesp 60 mcg once a week, Colace 100 a day, gabapentin 100 a day, multivite once a day, oxygen 3 or 4 liters nasal cannula, Zemplar 2 mg 3 times a week, MiraLax 3 times a week, Zocor 40 a day and warfarin 5. SOCIAL HISTORY: No history of smoking, distant history of drinking, does not drink currently. He lives with his family. FAMILY HISTORY: Positive for heart disease. Mother suddenly at age 70 and hypertension. REVIEW OF SYSTEMS: Ten systems were reviewed and are negative unless listed as documented. The patient vehemently denies any cold or infectious type symptoms. He says he feels his usual shortness of breath on the day preceding dialysis, which he is on Monday, Monday, Monday dialysis patient. He has had no unusual changes to his stool habits. He has no other increased pain or tenderness in his body. PHYSICAL EXAMINATION: GENERAL: He is pleasant. He appears chronically ill. VITAL SIGNS: Temperature is 37.1, pulse 73, respiration 12, BP 122/44. Previous was 104/39, O2 sat is 99 on 4 liters. HEENT: PERRL, EOMI. Oropharynx is with moist mucous membranes. No thrush. NECK: Without lymphadenopathy, JVD 2 cm. HEART: Distant, irregular, systolic murmur heard best at the left upper sternal border. LUNGS: Have decreased breath sounds at the bases. No crackles. Fair air movement. ABDOMEN: Protuberant, normoactive bowel sounds, soft, nontender, nondistended. EXTREMITIES: With 1-2+ edema. He has MANNY hose in place. His left knee is tender to examination. However, he has his clothes on in the ER and has not been fully examined, perhaps an orthopedic evaluation will be warranted. NEUROLOGIC: He is awake, alert and appropriate. Cranial nerves II through XII are intact. He has equal symmetrical strength and sensation. 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 SKIN: He has changes of chronic venous stasis to his lower extremities. LABORATORY DATA: White count 10, H\T\H 9 and 29, platelet count 277. BUN and creatinine 60 and 8.1, glucose 148, potassium 4.8, bicarbonate 37 and INR 1.3. As mentioned, CT head showing no acute changes. Chest x-ray showed no volume overload. EKG showing actually sinus rhythm. Other appropriate labs include, the patient has a troponin which was unremarkable and a BNP of 5714. ASSESSMENT: A 71-year-old male with hypotension and weakness. PLAN: For the hypotension, we will give him 500 mL of fluid over the next 2 hours. Will have him dialyzed tomorrow with attention to his dry weight and volume status. In case his weakness is encephalopathy, he will have a urine and blood cultures checked. He could have a system wide infection given he gets venous access 3 times a week, although his site does not look abnormal. General deconditioning. This could be as simple as he has been using his scooter more at home and has become more deconditioned. PT, OT evaluation will be undertaken given his baseline history of polio. Atrial fibrillation. The patient is currently in sinus rhythm. He is not fully anticoagulated, we will continue his Coumadin at 5 and check his INR daily. He denies medical indiscretion. Regarding his left knee pain, he will be continued on his allopurinol and orthopedic evaluation may be undertaken. Regarding his diabetes, diabetic diet we will use Lantus and substitute for his Toujeo. He was on 50 units of Lantus twice a day during his last hospital stay; however, he currently is telling me he is not quite sure, he has as much of an appetite, will reduce it to 40 b.i.d. with an insulin sliding scale on top of it, and q. a.c. and at bedtime checks. DVT prevention. He will be placed on heparin currently until his Coumadin INR is greater than 2. He is a set up for DVT, PE given his left leg discomfort. The patient is a full code. MTDD
[2016-12-04] MEDS ORDERED: INSULIN GLARGINE PER SC SCH (20:00)
[2016-12-04] MEDS: SIMVASTATIN 40 MG TAB PO SCH (20:52)
[2016-12-04] MEDS: CALCIUM ACETATE 667MG GELCAP PO SCH (20:52)
[2016-12-04] MEDS: INSULIN GLARGINE SOLOSTAR 100 UNITS/ML 3 ML PEN SC SCH (20:55)
[2016-12-04] MEDS: HEPARIN SOD 5000 UNIT/0.5 ML CARP SQ SCH (20:57)
[2016-12-04] MEDS: WARFARIN SOD 5 MG TAB PO SCH (21:29)
[2016-12-04] MEDS: INSULIN ASPART 100 UNITS/ML 3 ML PEN SC SCH (21:36)
[2016-12-04 22:11] VITALS: BP 102/61; PULSE 68; TEMP 37; O2SAT 98; BMI 52.7
[2016-12-05] VITALS (22 sets, daily range): BP systolic 85–109; BP diastolic 35–60; PULSE 51–82; TEMP 36.4–36.9; O2SAT 98–100; Ht 170.2 cm; Wt 149.3 kg
[2016-12-05] MEDS ORDERED: SODIUM CHLORIDE 0.9% 250ML 250 ML IV STA (00:31)
[2016-12-05 06:43] LABS: HEMATOCRIT 28.9 % (42-52); MEAN CELL VOLUME 93.8 fL (80-100); MEAN CORPUSCULAR HEMOGLOBIN 28.9 pg (25-34); MEAN CORPUSCULAR HGB CONC 30.8 g/dl (32-36); MEAN PLATELET VOLUME 9.7 fL (7.4-10.4); PLATELET COUNT 268 K/uL (130-400); RED BLOOD COUNT 3.08 M/uL (4.7-6.1); WHITE BLOOD COUNT 8.39 K/uL (4.8-10.8)
[2016-12-05 06:54] LABS: INR 1.3 (0.9-1.1); PROTHROMBIN TIME (PATIENT) 13.9 SECONDS (9.0-12.0)
[2016-12-05 07:07] LABS: ESTIMATED AVERAGE GLUCOSE 126 mg/dl; HA1C FLAG Normal (Normal)
[2016-12-05 07:26] LABS: BUN/CREATININE RATIO 7.9 (10-20); CALCIUM 8.4 mg/dl (8.5-10.1); CREATININE 9.1 mg/dl (0.60-1.40); POTASSIUM 5.1 mmol/L (3.5-5.1)
[2016-12-05] MEDS ORDERED: CINACALCET 60 MG PO SCH (08:00)
[2016-12-05] MEDS: CALCIUM ACETATE 667MG GELCAP PO SCH ×3 (08:08→17:53)
[2016-12-05] MEDS: GABAPENTIN 100 MG CAP PO SCH (08:08)
[2016-12-05] MEDS: ASPIRIN 81 MG ECTAB PO SCH (08:09)
[2016-12-05] MEDS: POLYETHYLENE (MIRALAX) 17 GM PACK PO SCH (08:09)
[2016-12-05] MEDS: ALLOPURINOL 100 MG TAB PO SCH (08:09)
[2016-12-05] MEDS: ACETAMINOPHEN 325 MG TAB PO PRN ×2 (08:10→18:24)
[2016-12-05] MEDS ORDERED: HEPARIN SOD (PORCINE) 1000 UNIT/ML 10 ML VIAL IV SCH (09:00)
[2016-12-05] MEDS ORDERED: SODIUM CHLORIDE 0.65% NA SOLN 45 ML (OCEAN) ONE (09:16)
[2016-12-05] MEDS: INSULIN ASPART 100 UNITS/ML 3 ML PEN SC SCH ×3 (09:26→18:23)
[2016-12-05] MEDS: INSULIN GLARGINE SOLOSTAR 100 UNITS/ML 3 ML PEN SC SCH ×2 (09:27→20:01)
[2016-12-05] MEDS: HEPARIN SOD 5000 UNIT/0.5 ML CARP SQ SCH ×2 (09:27→20:01)
--- NOTE | 2016-12-05 10:31 | Nephrology Consultation ---
Nephrology Consultation Date & Providers Date of Consultation: Dec 05, 2016. Primary Care Provider: Sarthak Gracia M.D. 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 He has been on hemodialysis since 2007. He receives dialysis on a MWF schedule at [facility]. His last hemodialysis treatment was on Monday. Dr. Flaherty is the primary hydrochloric manufacturing supervisor. There have not been any recent complications with dialysis. Corky was recently admitted to [facility] from October 10- with symptomatic bradycardia. Pacemaker placement was performed without complications. He was discharged to [facility]. Since returning home from [facility], Corky states that his functional status remains very poor. He describes generalized weakness. He has been dependent on a motorized wheelchair. His appetite is poor. Activity tolerance has not improved. Yesterday, he fell from the wheelchair to the floor. He required assistance to get off the floor. Corky described acute on chronic knee pain. He presented to the ED for additional evaluation. Past Medical/Surgical History Medical: ESRD, CAD, DMII, HTN, atrial fibrillation, autonomic dysfunction, chronic lung disease (cor pulmonale), obesity, anemia, secondary PTH, history of bladder cancer Surgical: AVF Allergies Coded Allergies: No Known Allergies (Verified , 12/04/16) Inpatient Medications Current Inpatient Medications Medications (Trade) Dose Ordered Sig/[place] Route Start Time Stop Time Status Last Admin Dose Admin Allopurinol (Zyloprim Tab) 100 mg DAILY PO 12/05/16 08:00 01/04/17 08:59 12/05/16 08:09 100 MG Aspirin (Ecotrin Tab) 81 mg DAILY PO 12/05/16 08:00 01/04/17 08:59 12/05/16 08:09 81 MG Calcium Acetate (Phoslo Cap) 2,001 mg TIDM PO 12/04/16 18:00 01/03/17 17:59 12/05/16 08:08 2,001 MG Gabapentin (Neurontin Cap) 100 mg QAM PO 12/05/16 08:00 01/04/17 08:59 12/05/16 08:08 100 MG Insulin Aspart (novoLOG ASPART) AC SC 12/05/16 06:30 01/04/17 07:59 12/05/16 09:26 4 UNITS Polyethylene (Miralax Powder Packet) 17 gm QAM PO 12/05/16 08:00 01/04/17 08:59 12/05/16 08:09 17 GM Simvastatin (Zocor Tab) 40 mg QPM PO 12/04/16 21:00 01/03/17 20:59 12/04/16 20:52 40 MG Warfarin Sodium (Coumadin Tab) 5 mg HS PO 12/04/16 21:00 01/03/17 20:59 12/04/16 21:29 5 MG Non-Formulary Medication (Cinacalcet (Sensipar)) 60 mg DAILY PO 12/05/16 08:00 01/04/17 08:59 Future Hold Calcium Acetate (Phoslo Cap) 667 mg UD PRN PO 12/04/16 17:15 01/03/17 17:14 Glucose (Glucose 40% Gel) 15-30 GRAMS 15 GRAMS... UD PRN PO 12/04/16 17:30 01/03/17 17:29 Glucose (Glucose Chew Tab) 4-8 Tablets 4 Tabl... UD PRN PO 12/04/16 17:30 01/03/17 17:29 Dextrose (Dextrose 50% 50ML Syringe) 25-50ML OF 50% DW IV FOR... UD PRN IV 12/04/16 17:30 01/03/17 17:29 Glucagon (Glucagon Inj) 1 mg UD PRN SQ 12/04/16 17:30 01/03/17 17:29 Insulin Glargine (Lantus Solostar Pen) 40 unit BID SC 12/04/16 20:00 01/03/17 20:59 12/05/16 09:27 40 UNIT Acetaminophen (Tylenol Tab) 650 mg Q4H PRN PO 12/04/16 17:45 01/03/17 17:44 12/05/16 08:10 650 MG Ondansetron HCl (Zofran Inj) 4 mg Q6H PRN IV 12/04/16 17:45 01/03/17 17:44 Heparin Sodium (Porcine) (Heparin Sq 5000 Unit/0.5ml) 5,000 unit Q12 SQ 12/04/16 21:00 01/03/17 20:59 12/05/16 09:27 5,000 UNIT Miscellaneous Information (Pending Order) 1 ea DAILY@10 N/A 12/05/16 10:00 01/04/17 09:59 12/05/16 09:44 1 EA Heparin Sodium (Porcine) (Heparin Iv Bolus) 2,000 unit TODAY@0900 IV 12/05/16 09:00 12/05/16 18:00 Family History Patient reports no known family medical history. Social History Smoking Status: Never Smoker Drug Use: none Marital Status: Housing Status: lives with family Occupation: retired Review of Systems A complete review of systems was performed. Pertinent positives are noted above. All other systems are negative. Physical Exam Date Time Temp Pulse Resp B/P Pulse Ox O2 Delivery O2 Flow Rate FiO2 12/05/16 07:29 36.4 69 20 98/60 100 Nasal Cannula 4.0 12/05/16 00:18 36.9 82 18 91/50 98 Nasal Cannula 4.0 12/05/16 00:00 98 Nasal Cannula 4.0 12/04/16 22:11 37.0 68 16 102/61 98 Nasal Cannula 4.0 12/04/16 19:52 69 16 93/48 98 12/04/16 18:28 68 12/04/16 17:31 73 12 122/44 99 Room Air 12/04/16 14:40 37.1 76 22 104/39 100 Nasal Cannula 4.0 12/04/16 14:38 78 General Appearance: WD/WN, no apparent distress Head: normocephalic, atraumatic Eyes: normal inspection, sclerae normal ENT: normal ENT inspection, pharynx normal Neck: supple, no JVD Respiratory/Chest: lungs clear, no respiratory distress, no accessory muscle use Cardiovascular: regular rate, rhythm, no gallop Abdomen/GI: non tender, soft Back: normal inspection, no muscle spasm Extremities/Musculoskelatal: normal inspection, + pedal edema Neurologic/Psych: alert, oriented x 3 Skin: normal color Laboratory Results Last 24 Hours Test 12/04/16 15:30 12/04/16 15:42 12/04/16 19:58 12/05/16 06:04 White Blood Count 10.25 K/uL 8.39 K/uL Red Blood Count 3.09 M/uL 3.08 M/uL Hemoglobin 9.2 g/dL 8.9 g/dL Hematocrit 29.5 % 28.9 % Mean Corpuscular Volume 95.5 fL 93.8 fL Mean Corpuscular Hemoglobin 29.8 pg 28.9 pg Mean Corpuscular Hemoglobin Concent 31.2 g/dl 30.8 g/dl Platelet Count 277 K/uL 268 K/uL Mean Platelet Volume 9.5 fL 9.7 fL Neutrophils (%) (Auto) 83.5 % Lymphocytes (%) (Auto) 9.4 % Monocytes (%) (Auto) 5.2 % Eosinophils (%) (Auto) 1.6 % Basophils (%) (Auto) 0.2 % Neutrophils # (Auto) 8.57 K/uL Lymphocytes # (Auto) 0.96 K/uL Monocytes # (Auto) 0.53 K/uL Eosinophils # (Auto) 0.16 K/uL Basophils # (Auto) 0.02 K/uL RDW Standard Deviation 60.1 fL 59.0 fL RDW Coefficient of Variation 17.4 % 17.4 % Immature Granulocyte % (Auto) 0.1 % Immature Granulocyte # (Auto) 0.01 K/uL Prothrombin Time 14.1 SECONDS 13.9 SECONDS Prothromb Time International Ratio 1.3 1.3 Activated Partial Thromboplast Time 37.6 SECONDS Partial Thromboplastin Ratio 1.4 Sodium Level 132 mmol/L 135 mmol/L Potassium Level 4.8 mmol/L 5.1 mmol/L Chloride Level 89 mmol/L 92 mmol/L Carbon Dioxide Level 37 mmol/L 33 mmol/L Anion Gap 6.0 mmol/L 10.0 mmol/L Blood Urea Nitrogen 63 mg/dl 71 mg/dl Creatinine 8.10 mg/dl 9.10 mg/dl Est Creatinine Clear Calc Drug Dose 11.9 ml/min 10.6 ml/min Estimated GFR () 7.0 6.1 Estimated GFR (Non- 6.0 5.2 BUN/Creatinine Ratio 7.8 7.9 Random Glucose 148 mg/dl 110 mg/dl Calcium Level 8.6 mg/dl 8.4 mg/dl Total Bilirubin 0.3 mg/dl Direct Bilirubin 0.1 mg/dl Aspartate Amino Transf (AST/SGOT) 11 U/L Alanine Aminotransferase (ALT/SGPT) 22 U/L Alkaline Phosphatase 74 U/L Total Protein 7.4 gm/dl Albumin 3.3 gm/dl Lipase 195 U/L Bedside Troponin I 0.030 ng/ml OT-Rxe-T-Type Natriuretic Peptide 5714 pg/ml Bedside Glucose 210 mg/dl Estimated Average Glucose 126 mg/dl Hemoglobin A1c 6.0 % Test 12/05/16 08:10 Bedside Glucose 113 mg/dl Impression (1) ESRD (end stage renal disease) on dialysis Mr. Corky Cabrera is a 71-year-old male with ESRD on HD admitted with weakness and knee pain. Recommendations ESRD: -- Plan HD today per [facility] schedule -- Typical treatment 4.5 hrs, Opti 200, Qb 450, Qd 800, 2K/2 Ca -- EDW 143 bu Corky has been leaving HD at 144 -- Current weight significantly greater than EDW but noted that he was weighed in his wheelchair with clothes on -- Plan goal UF ~4 kg today as tolerated Anemia: -- Procrit 4000 QHD -- Check iron profile with next blood draw. On venofer 50 weekly at HD CKD/MBD: -- [facility]
[2016-12-05] MEDS: CALCIUM ACETATE 667MG GELCAP PO PRN (10:39)
[2016-12-05] MEDS: EPOETIN ALFA 4000 UNITS/ML VIAL IV SCH (11:00)
[2016-12-05] MEDS ORDERED: NYSTATIN POWDER 15GM BTL EXT PRN (13:30)
[2016-12-05] MEDS ORDERED: NURSING VERBAL MED ORDER ONE (13:30)
--- NOTE | 2016-12-05 15:06 | Hospitalist Progress Note ---
Hospitalist Progress Note Date of Service Dec 05, 2016. Subjective Pt evaluation today including: conversation w/ patient, physical exam, chart review, lab review, review of studies, review of inpatient medication list Patient had no acute issue overnight Denies any dizziness, chest pain, nausea or SOB Constitutional: No fever, No weight loss Eyes: No worsening of vision ENT: No hearing loss, No sore throat Respiratory: No cough, No dyspnea on exertion, No shortness of breath Cardiovascular: No chest pain, No edema Abdomen: No constipation, No pain, No vomiting Musculoskeletal: No joint pain Male : No dysuria, No nocturia more than once/night Neurologic: No memory loss Psychiatric: No depression symptoms Heme: No abnormal bleeding/bruising Endo: No fatigue Skin: No itch, No rash Medications Current Inpatient Medications Medications (Trade) Dose Ordered Sig/[place] Route Start Time Stop Time Status Last Admin Dose Admin Allopurinol (Zyloprim Tab) 100 mg DAILY PO 12/05/16 08:00 01/04/17 08:59 12/05/16 08:09 100 MG Aspirin (Ecotrin Tab) 81 mg DAILY PO 12/05/16 08:00 01/04/17 08:59 12/05/16 08:09 81 MG Calcium Acetate (Phoslo Cap) 2,001 mg TIDM PO 12/04/16 18:00 01/03/17 17:59 12/05/16 12:40 2,001 MG Gabapentin (Neurontin Cap) 100 mg QAM PO 12/05/16 08:00 01/04/17 08:59 12/05/16 08:08 100 MG Insulin Aspart (novoLOG ASPART) AC SC 12/05/16 06:30 01/04/17 07:59 12/05/16 12:43 9 UNITS Polyethylene (Miralax Powder Packet) 17 gm QAM PO 12/05/16 08:00 01/04/17 08:59 12/05/16 08:09 17 GM Simvastatin (Zocor Tab) 40 mg QPM PO 12/04/16 21:00 01/03/17 20:59 12/04/16 20:52 40 MG Warfarin Sodium (Coumadin Tab) 5 mg HS PO 12/04/16 21:00 01/03/17 20:59 12/04/16 21:29 5 MG Non-Formulary Medication (Cinacalcet (Sensipar)) 60 mg DAILY PO 12/05/16 08:00 01/04/17 08:59 Future Hold Calcium Acetate (Phoslo Cap) 667 mg UD PRN PO 12/04/16 17:15 01/03/17 17:14 12/05/16 10:39 667 MG Glucose (Glucose 40% Gel) 15-30 GRAMS 15 GRAMS... UD PRN PO 12/04/16 17:30 01/03/17 17:29 Glucose (Glucose Chew Tab) 4-8 Tablets 4 Tabl... UD PRN PO 12/04/16 17:30 01/03/17 17:29 Dextrose (Dextrose 50% 50ML Syringe) 25-50ML OF 50% DW IV FOR... UD PRN IV 12/04/16 17:30 01/03/17 17:29 Glucagon (Glucagon Inj) 1 mg UD PRN SQ 12/04/16 17:30 01/03/17 17:29 Insulin Glargine (Lantus Solostar Pen) 40 unit BID SC 12/04/16 20:00 01/03/17 20:59 12/05/16 09:27 40 UNIT Acetaminophen (Tylenol Tab) 650 mg Q4H PRN PO 12/04/16 17:45 01/03/17 17:44 12/05/16 08:10 650 MG Ondansetron HCl (Zofran Inj) 4 mg Q6H PRN IV 12/04/16 17:45 01/03/17 17:44 Heparin Sodium (Porcine) (Heparin Sq 5000 Unit/0.5ml) 5,000 unit Q12 SQ 12/04/16 21:00 01/03/17 20:59 12/05/16 09:27 5,000 UNIT Miscellaneous Information (Pending Order) 1 ea DAILY@10 N/A 12/05/16 10:00 01/04/17 09:59 12/05/16 09:44 1 EA Heparin Sodium (Porcine) (Heparin Iv Bolus) 2,000 unit TODAY@0900 IV 12/05/16 09:00 12/05/16 18:00 Epoetin Ramón (Procrit Inj) 4,000 units MoWeFr@0700 IV 12/05/16 11:00 01/04/17 10:59 Nystatin (Mycostatin Powder) 1 appln BID PRN EXT 12/05/16 13:30 01/04/17 13:29 Objective Vital Signs Date Time Temp Pulse Resp B/P Pulse Ox O2 Delivery O2 Flow Rate FiO2 12/05/16 07:45 Nasal Cannula 3.0 12/05/16 07:29 36.4 69 20 98/60 100 Nasal Cannula 4.0 12/05/16 00:18 36.9 82 18 91/50 98 Nasal Cannula 4.0 12/05/16 00:00 98 Nasal Cannula 4.0 12/04/16 22:11 37.0 68 16 102/61 98 Nasal Cannula 4.0 12/04/16 19:52 69 16 93/48 98 12/04/16 18:28 68 12/04/16 17:31 73 12 122/44 99 Room Air Physical Exam General Appearance: WD/WN, no apparent distress, + obese Eyes: normal inspection ENT: normal ENT inspection Neck: supple, no adenopathy Respiratory/Chest: chest non-tender, + decreased breath sounds Cardiovascular: regular rate, rhythm, no edema Abdomen: normal bowel sounds, non tender, soft Extremities: normal range of motion, non-tender 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, no motor/sensory deficits, alert, oriented x 3 Skin: normal color, warm/dry Lymphatic: no adenopathy Laboratory Results Last 24 Hours Test 12/04/16 15:30 12/04/16 15:42 12/04/16 19:58 12/05/16 06:04 White Blood Count 10.25 K/uL 8.39 K/uL Red Blood Count 3.09 M/uL 3.08 M/uL Hemoglobin 9.2 g/dL 8.9 g/dL Hematocrit 29.5 % 28.9 % Mean Corpuscular Volume 95.5 fL 93.8 fL Mean Corpuscular Hemoglobin 29.8 pg 28.9 pg Mean Corpuscular Hemoglobin Concent 31.2 g/dl 30.8 g/dl Platelet Count 277 K/uL 268 K/uL Mean Platelet Volume 9.5 fL 9.7 fL Neutrophils (%) (Auto) 83.5 % Lymphocytes (%) (Auto) 9.4 % Monocytes (%) (Auto) 5.2 % Eosinophils (%) (Auto) 1.6 % Basophils (%) (Auto) 0.2 % Neutrophils # (Auto) 8.57 K/uL Lymphocytes # (Auto) 0.96 K/uL Monocytes # (Auto) 0.53 K/uL Eosinophils # (Auto) 0.16 K/uL Basophils # (Auto) 0.02 K/uL RDW Standard Deviation 60.1 fL 59.0 fL RDW Coefficient of Variation 17.4 % 17.4 % Immature Granulocyte % (Auto) 0.1 % Immature Granulocyte # (Auto) 0.01 K/uL Prothrombin Time 14.1 SECONDS 13.9 SECONDS Prothromb Time International Ratio 1.3 1.3 Activated Partial Thromboplast Time 37.6 SECONDS Partial Thromboplastin Ratio 1.4 Sodium Level 132 mmol/L 135 mmol/L Potassium Level 4.8 mmol/L 5.1 mmol/L Chloride Level 89 mmol/L 92 mmol/L Carbon Dioxide Level 37 mmol/L 33 mmol/L Anion Gap 6.0 mmol/L 10.0 mmol/L Blood Urea Nitrogen 63 mg/dl 71 mg/dl Creatinine 8.10 mg/dl 9.10 mg/dl Est Creatinine Clear Calc Drug Dose 11.9 ml/min 10.6 ml/min Estimated GFR () 7.0 6.1 Estimated GFR (Non- 6.0 5.2 BUN/Creatinine Ratio 7.8 7.9 Random Glucose 148 mg/dl 110 mg/dl Calcium Level 8.6 mg/dl 8.4 mg/dl Total Bilirubin 0.3 mg/dl Direct Bilirubin 0.1 mg/dl Aspartate Amino Transf (AST/SGOT) 11 U/L Alanine Aminotransferase (ALT/SGPT) 22 U/L Alkaline Phosphatase 74 U/L Total Protein 7.4 gm/dl Albumin 3.3 gm/dl Lipase 195 U/L Bedside Troponin I 0.030 ng/ml DU-Vvy-I-Type Natriuretic Peptide 5714 pg/ml Bedside Glucose 210 mg/dl Estimated Average Glucose 126 mg/dl Hemoglobin A1c 6.0 % Test 12/05/16 08:10 12/05/16 11:51 Bedside Glucose 113 mg/dl 154 mg/dl Assessment and Plan Patient is a 71 y.o.M who presented to [facility] with fall and weakness Weakness - suspect 2/2 to deconditioning - Pt/OT - patient desires to return back to [facility] rehab will make CM aware Mechanical Fall - PT/OT Hypotension - patient SBP run in the low 90's from previous admissions -asymptomatic - at baseline DMII - continue lantus and SSI - patient requesting to use home insulin/ is to bring in today ESRD - currently euvolemic - appreciate nephrology input - HD MWF Chronic Hypoxic Respiratory failure - currently at baseline 2-3 liters h/o PVD - cont simvastatin , ASA and coumadin Diastolic CHF - currently euvolemic - blood pressure control/daily weights JORJE - on nocturnal CPAP SSS with h/o PPM - noted Morbid obesity -nutrition consult .
[2016-12-05 19:19] LABS: HEPATITIS B AB NEG
[2016-12-05] MEDS: SIMVASTATIN 40 MG TAB PO SCH (20:00)
[2016-12-05] MEDS: WARFARIN SOD 5 MG TAB PO SCH (21:46)
[2016-12-06] VITALS: BP 114/57; PULSE 85; TEMP 36.9; O2SAT 97
[2016-12-06] MEDS: ACETAMINOPHEN 325 MG TAB PO PRN ×2 (02:40→08:04)
[2016-12-06 07:51] VITALS: BP 96/62; PULSE 64; TEMP 36.4; O2SAT 100
[2016-12-06] MEDS: INSULIN GLARGINE 300 UNITS/ML INJ SC SCH (08:00)
[2016-12-06] MEDS: ALLOPURINOL 100 MG TAB PO SCH (08:05)
[2016-12-06] MEDS: GABAPENTIN 100 MG CAP PO SCH (08:05)
[2016-12-06] MEDS: CALCIUM ACETATE 667MG GELCAP PO SCH ×3 (08:05→17:36)
[2016-12-06] MEDS: ASPIRIN 81 MG ECTAB PO SCH (08:05)
[2016-12-06] MEDS: POLYETHYLENE (MIRALAX) 17 GM PACK PO SCH (08:05)
[2016-12-06] MEDS: HEPARIN SOD 5000 UNIT/0.5 ML CARP SQ SCH ×2 (08:17→20:46)
[2016-12-06] MEDS: INSULIN ASPART 100 UNITS/ML 3 ML PEN SC SCH ×3 (08:49→18:01)
[2016-12-06 09:23] LABS: INR 1.3 (0.9-1.1)
[2016-12-06] MEDS ORDERED: NURSING VERBAL MED ORDER ONE ×2 (09:45)
--- NOTE | 2016-12-06 10:05 | Nephrology Progress Note ---
Nephrology Progress Note Date of Service Dec 06, 2016. Chief Complaint ESRD Subjective No acute events overnight. No acute complaints this morning. Fatigue and weakness persist. Denies shortness of breath. Tolerated HD yesterday, UF 4 kg. Review of Systems A complete review of systems was performed. Pertinent positives are noted above. All other systems are negative. Vital Signs Last 8 Hrs Date Time Temp Pulse Resp B/P Pulse Ox O2 Delivery O2 Flow Rate FiO2 12/06/16 09:02 Nasal Cannula 3.0 12/06/16 07:51 36.4 64 18 96/62 100 Nasal Cannula 4.0 I & O 24-Hour Column 12/06/16 07:59 Intake Total 380 ml Output Total 4000 ml Balance -3620 ml Last Recorded Weight Weight (Kilograms): 152.700 Physical Exam General Appearance: no apparent distress, + obese Head: normocephalic, atraumatic Eyes: normal inspection, sclerae normal ENT: normal ENT inspection, pharynx normal Neck: supple, no JVD Respiratory/Chest: lungs clear, no respiratory distress, no accessory muscle use, + rales (right base) Cardiovascular: regular rate, rhythm Abdomen/GI: non tender, soft Extremities/Musculoskelatal: normal inspection, + pedal edema Neurologic/Psych: alert, oriented x 3 Family History Patient reports no known family medical history. Social History Smoking Status: Never smoker Drug Use: none Marital Status: Housing Status: lives with family Occupation: retired Laboratory Results Past 24 Hours Test 12/05/16 11:51 12/05/16 17:44 12/05/16 18:38 12/05/16 19:55 Bedside Glucose 154 mg/dl (70-99) 260 mg/dl (70-99) 241 mg/dl (70-99) Hepatitis B Surface Antigen NEG (NEG) Hepatitis B Surface Antibody NEG Test 12/06/16 08:03 12/06/16 08:25 Bedside Glucose 118 mg/dl (70-99) Prothrombin Time 14.0 SECONDS (9.0-12.0) Prothromb Time International Ratio 1.3 (0.9-1.1) Allergies Coded Allergies: No Known Allergies (Verified , 12/04/16) Medications Current Inpatient Medications Medications (Trade) Dose Ordered Sig/Kat[place] Route Start Time Stop Time Status Last Admin Dose Admin Allopurinol (Zyloprim Tab) 100 mg DAILY PO 12/05/16 08:00 01/04/17 08:59 12/06/16 08:05 100 MG Aspirin (Ecotrin Tab) 81 mg DAILY PO 12/05/16 08:00 01/04/17 08:59 12/06/16 08:05 81 MG Calcium Acetate (Phoslo Cap) 2,001 mg TIDM PO 12/04/16 18:00 01/03/17 17:59 12/06/16 08:05 2,001 MG Gabapentin (Neurontin Cap) 100 mg QAM PO 12/05/16 08:00 01/04/17 08:59 12/06/16 08:05 100 MG Insulin Aspart (novoLOG ASPART) AC SC 12/05/16 06:30 01/04/17 07:59 12/06/16 08:49 4 UNITS Polyethylene (Miralax Powder Packet) 17 gm QAM PO 12/05/16 08:00 01/04/17 08:59 12/06/16 08:05 17 GM Simvastatin (Zocor Tab) 40 mg QPM PO 12/04/16 21:00 01/03/17 20:59 12/05/16 20:00 40 MG Warfarin Sodium (Coumadin Tab) 5 mg HS PO 12/04/16 21:00 01/03/17 20:59 12/05/16 21:46 5 MG Non-Formulary Medication (Cinacalcet (Sensipar)) 60 mg DAILY PO 12/05/16 08:00 01/04/17 08:59 Future Hold Calcium Acetate (Phoslo Cap) 667 mg UD PRN PO 12/04/16 17:15 01/03/17 17:14 12/05/16 10:39 667 MG Glucose (Glucose 40% Gel) 15-30 GRAMS 15 GRAMS... UD PRN PO 12/04/16 17:30 01/03/17 17:29 Glucose (Glucose Chew Tab) 4-8 Tablets 4 Tabl... UD PRN PO 12/04/16 17:30 01/03/17 17:29 Dextrose (Dextrose 50% 50ML Syringe) 25-50ML OF 50% DW IV FOR... UD PRN IV 12/04/16 17:30 01/03/17 17:29 Glucagon (Glucagon Inj) 1 mg UD PRN SQ 12/04/16 17:30 3/28/17 17:29 Insulin Glargine (Lantus Solostar Pen) 40 unit BID SC 12/04/16 20:00 01/03/17 20:59 12/05/16 20:01 40 UNIT Acetaminophen (Tylenol Tab) 650 mg Q4H PRN PO 12/04/16 17:45 01/03/17 17:44 12/06/16 08:04 650 MG Ondansetron HCl (Zofran Inj) 4 mg Q6H PRN IV 12/04/16 17:45 01/03/17 17:44 Heparin Sodium (Porcine) (Heparin Sq 5000 Unit/0.5ml) 5,000 unit Q12 SQ 12/04/16 21:00 01/03/17 20:59 12/06/16 08:17 5,000 UNIT Miscellaneous Information (Pending Order) 1 ea DAILY@10 N/A 12/05/16 10:00 01/04/17 09:59 12/05/16 09:44 1 EA Epoetin Ramón (Procrit Inj) 4,000 units MoWeFr@0700 IV 12/05/16 11:00 01/04/17 10:59 Nystatin (Mycostatin Powder) 1 appln BID PRN EXT 12/05/16 13:30 01/04/17 13:29 Miscellaneous Information (Nursing Verbal Med Order) 1 ea ONE ONCE N/A 12/06/16 09:45 12/06/16 09:46 UNV Miscellaneous Information (Nursing Verbal Med Order) 1 ea ONE ONCE N/A 12/06/16 09:45 12/06/16 09:46 UNV Impression (1) ESRD (end stage renal disease) on dialysis Mr. Corky Cabrera is a 71-year-old male with ESRD on HD admitted with weakness and knee pain. Recommendations ESRD: -- Tolerated HD yesterday, UF 4 kg. Remains slightly above EDW (143-144) but volume status acceptable -- HD tomorrow per [facility] schedule -- Typical treatment 4.5 hrs, Opti 200, Qb 450, Qd 800, 2K/2 Ca Anemia: -- Procrit 4000 QHD -- Check iron profile tomorrow AM CKD/MBD: -- Phoslo QAC DM: -- Corky would like to use his Tuojeo from home instead of Lantus in the hospital, will discuss with pharmacy
[2016-12-06] MEDS ORDERED: PHARMACY GLYCEMIC MGMT CONSULT PRN (10:22)
--- NOTE | 2016-12-06 10:50 | Pharmacy Progress Note ---
Glycemic Control Intl Consult Date of Service Dec 06, 2016. Scope Glycemic Pharmacist consulted by Dr Adam on 12/06/16 for glycemic control and to write orders per [facility] inpatient glycemic control protocol Objective Weight (Kilograms): 152.700 Accuchecks BSG (last 24hrs): Test 12/05/16 11:51 12/05/16 17:44 12/05/16 19:55 12/06/16 08:03 Bedside Glucose 154 mg/dl (70-99) 260 mg/dl (70-99) 241 mg/dl (70-99) 118 mg/dl (70-99) HbA1c Test 12/05/16 06:04 Hemoglobin A1c 6.0 % (4.5-5.6) H Recent Pertinent Medications Outpatient Anti-diabetic Regimen: * Toujeo 45 units SQ q AM * NovoLog AC * Goal range: 125-150mg/dL * Correction factor: 15mg/dL/unit * Carb ratio: 1 unit per 5g of CHO consumed * A1c = difficult to interpret secondary to ESRD/HD The patient is currently receiving: * Basal insulin: Lantus 40 units every 12 hours * Correctional Insulin: NovoLog Correction per scale AC/HS Goal Range: Low 80 mg/dL - High 150 mg/dL Correction Factor: 25 mg/dL/unit * Prandial insulin: Per carb ratio of 1 unit per 10 grams CHO consumed Risk Factors for Insulin Resistance: * Diet: renal Risk Factors for Insulin Sensitivity: * Renal insufficiency: dialysis F Assessment & Plan ASSESSMENT: * ADA & AACE recommend a goal blood sugar range 140-180 mg/dl for the majority of critically ill & non-critically ill patients. However, more stringent targets may be selected in individual cases. Will utilize the patient's home goal range of 125-150mg/dL 12/06/16 * Received consult for Mr. Cabrera today as he is preparing to transition from formulary Lantus to non-formulary home medication Toujeo * both are insulin glargine, however the concentrations differ (100u/mL vs. 300u/mL, respectively) * Today, fasting BSG appropriate at 118mg/dL * transitioning to home Toujeo as mentioned, no other change to basal insulin at this time * BSGs did rise throughout the day yesterday * will tighten NovoLog parameters to better match home regimen and likely improve glycemic control * A1c is difficult to interpret secondary to ESRD/HD PLAN FOR INPATIENT GLYCEMIC CONTROL: * Discontinue Lantus * Begin Toujeo 45 units SQ daily * Continue NovoLog AC (no HS dosing per home schedule) * Correction factor tightened to 18mg/dL/uni * Carb ratio tightened to 1 unit per 6g of CHO consumed * Goal range: 125-150mg/dL RECOMMENDATIONS FOR DISCHARGE: * Likely, can continue home regimen at [facility] * Please note that the plan above was derived based on current level of insulin resistance and hospital stress. These recommendations are appropriate for inpatient admission only. Plan of care upon discharge will need to be reassessed to avoid potential outpatient hypo/hyperglycemia. Thank you.
[2016-12-06] MEDS ORDERED: HEPARIN SOD (PORCINE) 1000 UNIT/ML 10 ML VIAL IV SCH (16:15)
[2016-12-06] MEDS: HEPARIN SOD (PORCINE) 1000 UNIT/ML 10 ML VIAL IV SCH ×3 (16:15→18:15)
[2016-12-06 16:25] VITALS: BP 100/58; PULSE 75; TEMP 36.9; O2SAT 91
--- NOTE | 2016-12-06 17:33 | EMERGENCY ROOM VISIT NOTE ---
History Report prepared by Hue: Elyse Wiggins Under the Supervision of: Dr. Vicente Colvin M.D. First contact with patient: 14:54 Chief Complaint: FLU LIKE SX Stated Complaint: GENERALIZED WEAKNESS History of Present Illness The patient is a 71 year old male who presents to the Emergency Room with complaints of constant generalized weakness starting earlier today [employer]. The patient states that he has dialysis on Monday, Monday and Monday and he is able to have bowel movements on Monday, Wednesdays, Fridays and Sundays. The patient states that when he went to get up to have a bowel movement today he states the was unable to walk because of his generalized weakness. He states when transferring into his wheelchair from another chair he slid but denies any trauma. The patient denies any recent fevers, vomiting, diarrhea, headache and states that he is unable to make urine. The patient states that he has had a stiff neck recently. The patient states that he noticed the generalized weakness earlier today but states he has been using his motorized wheelchair more often this week to get around his house. The patient states that he wears 4L of oxygen at home regularly but has recently increased it to 5 L. He also states that he has had polio and has baseline left leg weakness. Source of History: patient, transfer records Onset: earlier today [employer] Position: other (global) Timing: constant Associated Symptoms: No diarrhea, No fevers, No headache, No urinary symptoms, No vomiting Note: Associated symptoms: stiff neck. Review of Systems See HPI for pertinent positives & negatives. A total of 10 systems reviewed and were otherwise negative. 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 Nurse's notes were reviewed and I agree with. Family History Patient reports no known family medical history. Social History Smoking Status: Never Smoker Drug Use: none Marital Status: Housing Status: lives with family Occupation Status: retired Current/Historical Medications Scheduled Allopurinol (Zyloprim *), 100 MG PO DAILY Aspirin (Aspirin Ec), 81 MG PO DAILY Calcium Acetate (Phoslo 667 Mg), 2,001 MG PO TIDM Cinacalcet (Sensipar), 60 MG PO DAILY Gabapentin (Neurontin), 1 CAP PO QD Insulin Aspart (Novolog Flexpen), 0 UNITS SC AC Insulin Glargine (Toujeo Solostar), 45 UNITS SC QD Oxygen (Oxygen), 4 LITERS NA CONTINOUS Polyethylene Glycol 3350 (Miralax), 174 GM PO QAM Simvastatin (Zocor), 40 MG PO QPM Warfarin Sodium (Coumadin), 5 MG PO HS [vitamin with zinc], 1 CAP PO QD Scheduled PRN Calcium Acetate (Phoslo 667 Mg), 1-2 CAP PO UD PRN for WITH SNACKS Allergies Coded Allergies: No Known Allergies (Verified , 12/04/16) Physical Exam Vital Signs Date Time Temp Pulse Resp B/P Pulse Ox O2 Delivery O2 Flow Rate FiO2 12/04/16 17:31 73 12 122/44 99 Room Air 12/04/16 14:40 37.1 76 22 104/39 100 Nasal Cannula 4.0 12/04/16 14:38 78 Physical Exam General: Chronically ill appearing older male in no acute distress. Alert and oriented x3 and answers questions appropriately. breathing comfortably on room air. Normal speech HEENT: Normal cephalic atraumatic. Pupils are equal round and reactive to light. Extraocular movements are intact. Oropharynx is pink with moist mucous membranes. No swelling of the mouth lips or tongue. Neck: Supple with a midline trachea. No meningeal signs or stiffness, no JVD or bruits. No Stridor. Chest: Clear to auscultation bilaterally. No wheezes or rhonchi. No increased work of breathing. Heart: regular rate and rhythm. Pacemaker place in left chest. Abdomen: Soft nontender, nondistended without rebound guarding or rigidity. Extremities: Chronic vascular changes in legs. Wearing compression hoses on legs. Spine/Back. Non tender to palpation. No CVA tenderness Skin: Good turgor without rashes. Neurologic exam: Cranial nerves two through 12 are intact. Motor and sensation are intact and symmetrical throughout. Medical Decision & Procedures ER Provider Diagnostic Interpretation: X-ray results as stated below per interpretation by me and the radiologist: CHEST ONE VIEW PORTABLE CLINICAL HISTORY: Chest pain. COMPARISON STUDY: Chest radiograph October 12, 2016. FINDINGS: A left subclavian pacemaker and a vascular stent projecting over the right upper hemithorax are again noted. Mild cardiomegaly is unchanged. There is no pneumothorax or pleural effusion. Linear bibasilar opacities favor atelectasis. Left basilar opacity is noted. Mild interstitial thickening is unchanged. IMPRESSION: 1. Left lower lung airspace opacity which may reflect atelectasis or consolidation. Short-term radiographic follow up is recommended. 2. Stable cardiomegaly without evidence of pulmonary edema. Electronically signed by: Adin Mari M.D. 12/04/2016 3:19 PM Dictated Date/Time: 12/04/2016 3:[address] results as stated below per my review and radiologist interpretation: CT OF THE HEAD WITHOUT CONTRAST CLINICAL HISTORY: Generalized weakness COMPARISON STUDY: Head CT December 18, 2014 CT DOSE: 1228.24 mGy.cm TECHNIQUE: Helical axial images of the head were obtained without IV contrast. Automated exposure control was utilized for the study. FINDINGS: No acute intracranial hemorrhage, midline shift or mass effect is present. Ventricular system is normal. The basilar cisterns are patent. There are no extra-axial collections. White matter hypodensities suggest mild small vessel disease. There are no findings to suggest acute dural sinus thrombosis or acute territorial infarct. There is no calvarial fracture. There is mild mucosal thickening of the ethmoid and right sphenoid sinuses. IMPRESSION: No acute intracranial findings. Electronically signed by: Adin Mari M.D. 12/04/2016 4:04 PM Dictated Date/Time: 12/04/2016 4:01 PM Laboratory Results Test 12/04/16 15:30 12/04/16 15:42 Immature Granulocyte % (Auto) 0.1 % White Blood Count 10.25 K/uL (4.8-10.8) Red Blood Count 3.09 M/uL (4.7-6.1) Hemoglobin 9.2 g/dL (14.0-18.0) Hematocrit 29.5 % (42-52) Mean Corpuscular Volume 95.5 fL (80-100) Mean Corpuscular Hemoglobin 29.8 pg (25-34) Mean Corpuscular Hemoglobin Concent 31.2 g/dl (32-36) Platelet Count 277 K/uL (130-400) Mean Platelet Volume 9.5 fL (7.4-10.4) Neutrophils (%) (Auto) 83.5 % Lymphocytes (%) (Auto) 9.4 % Monocytes (%) (Auto) 5.2 % Eosinophils (%) (Auto) 1.6 % Basophils (%) (Auto) 0.2 % Neutrophils # (Auto) 8.57 K/uL (1.4-6.5) Lymphocytes # (Auto) 0.96 K/uL (1.2-3.4) Monocytes # (Auto) 0.53 K/uL (0.11-0.59) Eosinophils # (Auto) 0.16 K/uL (0-0.5) Basophils # (Auto) 0.02 K/uL (0-0.2) Immature Granulocyte # (Auto) 0.01 K/uL (0.00-0.02) Activated Partial Thromboplast Time 37.6 SECONDS (21.0-31.0) Partial Thromboplastin Ratio 1.4 Total Bilirubin 0.3 mg/dl (0.2-1) Direct Bilirubin 0.1 mg/dl (0-0.2) Aspartate Amino Transf (AST/SGOT) 11 U/L (15-37) Alanine Aminotransferase (ALT/SGPT) 22 U/L (12-78) Alkaline Phosphatase 74 U/L (45-117) Total Protein 7.4 gm/dl (6.4-8.2) Albumin 3.3 gm/dl (3.4-5.0) Lipase 195 U/L (73-393) Bedside Troponin I 0.030 ng/ml (0-0.045) VR-Ndi-N-Type Natriuretic Peptide 5714 pg/ml (0-900) Laboratory studies as stated above per my review. Medications Administered Medications (Trade) Dose Ordered Sig/Kat[place]ka Route Start Time Stop Time Status Last Admin Dose Admin Sodium Chloride (Nss 500ml) 500 ml @ 250 mls/hr Q2H IV 12/04/16 17:15 12/04/16 19:14 DC 12/04/16 20:52 250 MLS/HR Calcium Acetate (Phoslo Cap) 667 mg UD PRN PO 12/04/16 17:15 01/03/17 17:14 12/05/16 10:39 667 MG Acetaminophen (Tylenol Tab) 650 mg Q4H PRN PO 12/04/16 17:45 01/03/17 17:44 12/06/16 08:04 650 MG ECG Indication: weakness (generalized) Rate (beats per minute): 71 Rhythm: normal sinus Findings: nonspecific-ST abn, other (Poor baseline) Comparison ECG Date: October 11, 2016 Change: Normal sinus rhythm has replaced atrial fibrillation in previous EKG. ED Course 1457: Past medical records reviewed. The patient was evaluated in room B5, and a complete history and physical examination were performed. 1640: I reevaluated the patient and he was still feeling weak. 1649: I discussed the case with Dr. Jose NEWTON Hospitalist. He agreed to evaluate the patient for further management and care. Medical Decision Differentials include, but are not limited to; electrolyte or metabolic abnormality, infection, arrythemia, central neurologic process, anemia. This patient comes in as described above. He has generalized weakness and has really no focal complaints otherwise. He does have very extensive medical history including end-stage renal disease and significant cardiac disease among other medical problems. He looks well on exam and appears in no acute distress. He has a nonfocal neurologic exam. IV access established and multiple blood tests was obtained. He is a dialysis patient but has not missed any dialysis. He does not make urine. Chest x-ray shows a questionable atelectasis versus infiltrate in the left base. Clinically, he has no cough or fever or anything to suggest pneumonia. He has baseline anemia. He has nothing to suggest sepsis or infection at this point. He has baseline renal failure but no other significant acute electrolyte or metabolic abnormalities. CAT scan of his head was unremarkable. He says he just does not feel well and does not feel that he can go home. I did at this point he seems to weak to be alert take care of himself at home. I do think he needs to be admitted for further treatment and evaluation. At this point he has nothing to suggest acute cardiac disease. I have consulted the [facility] hospitalist. They saw him the ER and will admit him for these measures. Consults Time Called: 1640 Consulting Physician: Dr. Jose NEWTON Hospitalist Returned Call: 1650 I discussed the case with Dr. Jose NEWTON Hospitalist. He agreed to evaluate the patient for further management and care. Impression Primary Impression: Weakness Additional Impression: ESRD (end stage renal disease) on dialysis Scribe Attestation The scribe's documentation has been prepared under my direction and personally reviewed by me in its entirety. I confirm that the note above accurately reflects all work, treatment, procedures, and medical decision making performed by me. Departure Information Dispostion Being Evaluated By Hospitalist Referrals Sarthak Gracia M.D. (PCP) Patient Instructions My [facility] Problem Qualifiers
--- NOTE | 2016-12-06 19:00 | Hospitalist Progress Note ---
Hospitalist Progress Note Date of Service Dec 06, 2016. Subjective Pt evaluation today including: conversation w/ patient, physical exam, chart review, lab review, review of studies, review of inpatient medication list Patient had no acute issues overnight Constitutional: No fever Eyes: No worsening of vision ENT: No hearing loss Respiratory: No cough Abdomen: No constipation, No pain, No vomiting Musculoskeletal: No joint pain Male : No dysuria Neurologic: No memory loss Psychiatric: No depression symptoms Endo: No fatigue Medications Current Inpatient Medications Medications (Trade) Dose Ordered Sig/Katiuska Route Start Time Stop Time Status Last Admin Dose Admin Allopurinol (Zyloprim Tab) 100 mg DAILY PO 12/05/16 08:00 01/04/17 08:59 12/06/16 08:05 100 MG Aspirin (Ecotrin Tab) 81 mg DAILY PO 12/05/16 08:00 01/04/17 08:59 12/06/16 08:05 81 MG Calcium Acetate (Phoslo Cap) 2,001 mg TIDM PO 12/04/16 18:00 01/03/17 17:59 12/06/16 17:36 2,001 MG Gabapentin (Neurontin Cap) 100 mg QAM PO 12/05/16 08:00 01/04/17 08:59 12/06/16 08:05 100 MG Insulin Aspart (novoLOG ASPART) AC SC 12/05/16 06:30 01/04/17 07:59 12/06/16 18:01 11 UNITS Polyethylene (Miralax Powder Packet) 17 gm QAM PO 12/05/16 08:00 01/04/17 08:59 12/06/16 08:05 17 GM Simvastatin (Zocor Tab) 40 mg QPM PO 12/04/16 21:00 01/03/17 20:59 12/05/16 20:00 40 MG Warfarin Sodium (Coumadin Tab) 5 mg HS PO 12/04/16 21:00 01/03/17 20:59 12/05/16 21:46 5 MG Non-Formulary Medication (Cinacalcet (Sensipar)) 60 mg DAILY PO 12/05/16 08:00 01/04/17 08:59 Future Hold Calcium Acetate (Phoslo Cap) 667 mg UD PRN PO 12/04/16 17:15 01/03/17 17:14 12/05/16 10:39 667 MG Glucose (Glucose 40% Gel) 15-30 GRAMS 15 GRAMS... UD PRN PO 12/04/16 17:30 01/03/17 17:29 Glucose (Glucose Chew Tab) 4-8 Tablets 4 Tabl... UD PRN PO 12/04/16 17:30 01/03/17 17:29 Dextrose (Dextrose 50% 50ML Syringe) 25-50ML OF 50% DW IV FOR... UD PRN IV 12/04/16 17:30 01/03/17 17:29 Glucagon (Glucagon Inj) 1 mg UD PRN SQ 12/04/16 17:30 01/03/17 17:29 Acetaminophen (Tylenol Tab) 650 mg Q4H PRN PO 12/04/16 17:45 01/03/17 17:44 12/06/16 08:04 650 MG Ondansetron HCl (Zofran Inj) 4 mg Q6H PRN IV 12/04/16 17:45 01/03/17 17:44 Heparin Sodium (Porcine) (Heparin Sq 5000 Unit/0.5ml) 5,000 unit Q12 SQ 12/04/16 21:00 01/03/17 20:59 12/06/16 08:17 5,000 UNIT Miscellaneous Information (Pending Order) 1 ea DAILY@10 N/A 12/05/16 10:00 01/04/17 09:59 12/06/16 12:22 1 EA Epoetin Ramón (Procrit Inj) 4,000 units MoWeFr@0700 IV 12/05/16 11:00 01/04/17 10:59 Nystatin (Mycostatin Powder) 1 appln BID PRN EXT 12/05/16 13:30 01/04/17 13:29 Miscellaneous Information (Consult Glycemic Management Pharmacy) 1 ea UD PRN N/A 12/06/16 10:22 01/05/17 10:21 Insulin Glargine (Toujeo Solostar) 45 unit QAM SC 12/06/16 08:00 01/05/17 07:59 12/06/16 08:00 45 UNIT Objective Vital Signs Date Time Temp Pulse Resp B/P Pulse Ox O2 Delivery O2 Flow Rate FiO2 12/06/16 16:25 36.9 75 18 100/58 91 Room Air 12/06/16 09:02 Nasal Cannula 3.0 12/06/16 07:51 36.4 64 18 96/62 100 Nasal Cannula 4.0 12/06/16 01:32 Nasal Cannula 3.0 12/06/16 00:00 36.9 85 20 114/57 97 4.0 12/05/16 21:00 Nasal Cannula 3.0 Physical Exam General Appearance: WD/WN, no apparent distress, + obese Eyes: normal inspection ENT: normal ENT inspection Neck: supple Respiratory/Chest: chest non-tender, lungs clear Cardiovascular: regular rate, rhythm, no edema Abdomen: normal bowel sounds, non tender, soft Extremities: normal range of motion, non-tender Neurologic/Psychiatric: hand kiss setter II-XII nml as tested, no motor/sensory deficits, alert, oriented x 3 Skin: normal color, warm/dry, no rash Lymphatic: no adenopathy Laboratory Results Last 24 Hours Test 12/05/16 19:55 12/06/16 08:03 12/06/16 08:25 12/06/16 11:32 Bedside Glucose 241 mg/dl 118 mg/dl 120 mg/dl Prothrombin Time 14.0 SECONDS Prothromb Time International Ratio 1.3 Test 12/06/16 12:24 Bedside Glucose 181 mg/dl Assessment and Plan Patient is a 71 y.o.M who presented to [facility] with fall and weakness Weakness - suspect 2/2 to deconditioning - Pt/OT - [facility] has refused pt for rehab/referrals sent out to [facility] and [facility] Mechanical Fall - PT/OT Hypotension - patient SBP run in the low 90's from previous admissions -asymptomatic - at baseline DMII - continue home medication ESRD - currently euvolemic - appreciate nephrology input - HD MWF Chronic Hypoxic Respiratory failure - currently at baseline 2-3 liters h/o PVD - cont simvastatin , ASA and coumadin Diastolic CHF - currently euvolemic - blood pressure control/daily weights JORJE - on nocturnal CPAP SSS with h/o PPM - noted Morbid obesity -nutrition consult Disposition-awaiting placement .
[2016-12-06] MEDS: WARFARIN SOD 5 MG TAB PO SCH (20:44)
[2016-12-06] MEDS: SIMVASTATIN 40 MG TAB PO SCH (20:44)
[2016-12-07] VITALS (21 sets, daily range): BP systolic 71–145; BP diastolic 38–72; PULSE 58–74; TEMP 36–37; O2SAT 99
[2016-12-07 06:00] LABS: HEMATOCRIT 26.9 % (42-52); MEAN CELL VOLUME 91.2 fL (80-100); MEAN CORPUSCULAR HEMOGLOBIN 28.8 pg (25-34); MEAN CORPUSCULAR HGB CONC 31.6 g/dl (32-36); MEAN PLATELET VOLUME 9.6 fL (7.4-10.4); PLATELET COUNT 259 K/uL (130-400); RED BLOOD COUNT 2.95 M/uL (4.7-6.1); WHITE BLOOD COUNT 6.85 K/uL (4.8-10.8)
[2016-12-07 06:13] LABS: INR 1.3 (0.9-1.1); PROTHROMBIN TIME (PATIENT) 14.6 SECONDS (9.0-12.0)
[2016-12-07 06:50] LABS: BUN/CREATININE RATIO 8.9 (10-20); CALCIUM 8.5 mg/dl (8.5-10.1); CREATININE 8.9 mg/dl (0.60-1.40); POTASSIUM 5.5 mmol/L (3.5-5.1)
[2016-12-07] MEDS: CALCIUM ACETATE 667MG GELCAP PO SCH ×3 (08:43→16:54)
[2016-12-07] MEDS: POLYETHYLENE (MIRALAX) 17 GM PACK PO SCH (08:44)
[2016-12-07] MEDS: GABAPENTIN 100 MG CAP PO SCH (08:44)
[2016-12-07] MEDS: ASPIRIN 81 MG ECTAB PO SCH (08:44)
[2016-12-07] MEDS: ALLOPURINOL 100 MG TAB PO SCH (08:44)
[2016-12-07] MEDS: INSULIN ASPART 100 UNITS/ML 3 ML PEN SC SCH ×3 (08:48→18:14)
[2016-12-07] MEDS: INSULIN GLARGINE 300 UNITS/ML INJ SC SCH (08:48)
[2016-12-07] MEDS: HEPARIN SOD 5000 UNIT/0.5 ML CARP SQ SCH ×2 (08:49→21:08)
--- NOTE | 2016-12-07 09:51 | Nephrology Progress Note ---
Nephrology Progress Note Date of Service Dec 07, 2016. Chief Complaint ESRD Subjective No acute events overnight. Corky is very frustrated this morning. He was hoping to go to [facility]. He has been disappointed that the hasn't had more physical therapy in the hospital. He remains weak and dependent. His appetite is good. He denies fevers or chills. He denies shortness of breath. Review of Systems A complete review of systems was performed. Pertinent positives are noted above. All other systems are negative. Vital Signs Last 8 Hrs Date Time Temp Pulse Resp B/P Pulse Ox O2 Delivery O2 Flow Rate FiO2 12/07/16 07:40 36.6 68 18 118/72 99 Nasal Cannula 4.0 I & O 24-Hour Column 12/07/16 08:00 Intake Total 855 ml Balance 855 ml Last Recorded Weight Weight (Kilograms): 144.100 Physical Exam General Appearance: no apparent distress, + obese Head: normocephalic, atraumatic Eyes: normal inspection, sclerae normal ENT: normal ENT inspection, pharynx normal Neck: supple, no JVD Respiratory/Chest: lungs clear, no respiratory distress, no accessory muscle use Cardiovascular: regular rate, rhythm Abdomen/GI: non tender, soft Extremities/Musculoskelatal: normal inspection, + pedal edema, + pertinent finding (AVF with thrill and bruit) Neurologic/Psych: alert, oriented x 3 Family History Patient reports no known family medical history. Social History Smoking Status: Never smoker Drug Use: none Marital Status: Housing Status: lives with family Occupation: retired Laboratory Results Past 24 Hours 12/07/16 05:05 12/07/16 05:05 Test 12/06/16 11:32 12/06/16 12:24 12/06/16 16:47 12/06/16 19:57 Bedside Glucose 120 mg/dl (70-99) 181 mg/dl (70-99) 154 mg/dl (70-99) 196 mg/dl (70-99) Test 12/07/16 05:05 12/07/16 07:35 Red Blood Count 2.95 M/uL (4.7-6.1) Mean Corpuscular Volume 91.2 fL (80-100) Mean Corpuscular Hemoglobin 28.8 pg (25-34) Mean Corpuscular Hemoglobin Concent 31.6 g/dl (32-36) RDW Standard Deviation 56.9 fL (36.4-46.3) RDW Coefficient of Variation 17.2 % (11.5-14.5) Mean Platelet Volume 9.6 fL (7.4-10.4) Prothrombin Time 14.6 SECONDS (9.0-12.0) Prothromb Time International Ratio 1.3 (0.9-1.1) Anion Gap 13.0 mmol/L (3-11) Est Creatinine Clear Calc Drug Dose 10.8 ml/min Estimated GFR () 6.2 Estimated GFR (Non- 5.4 BUN/Creatinine Ratio 8.9 (10-20) Calcium Level 8.5 mg/dl (8.5-10.1) Iron Level 28 mcg/dl (35-175) Total Iron Binding Capacity 157 mcg/dl (250-450) Transferrin 114 mg/dl (200-360) Transferrin % Saturation 18 % (20-50) Ferritin 1095.0 ng/ml (8.0-388.0) Bedside Glucose 113 mg/dl (70-99) Allergies Coded Allergies: No Known Allergies (Verified , 12/04/16) Medications Current Inpatient Medications Medications (Trade) Dose Ordered Sig/Katiuska Route Start Time Stop Time Status Last Admin Dose Admin Allopurinol (Zyloprim Tab) 100 mg DAILY PO 12/05/16 08:00 01/04/17 08:59 12/07/16 08:44 100 MG Aspirin (Ecotrin Tab) 81 mg DAILY PO 12/05/16 08:00 01/04/17 08:59 12/07/16 08:44 81 MG Calcium Acetate (Phoslo Cap) 2,001 mg TIDM PO 12/04/16 18:00 01/03/17 17:59 12/07/16 08:43 2,001 MG Gabapentin (Neurontin Cap) 100 mg QAM PO 12/05/16 08:00 01/04/17 08:59 12/07/16 08:44 100 MG Insulin Aspart (novoLOG ASPART) AC SC 12/05/16 06:30 01/04/17 07:59 12/07/16 08:48 6 UNITS Polyethylene (Miralax Powder Packet) 17 gm QAM PO 12/05/16 08:00 01/04/17 08:59 12/07/16 08:44 17 GM Simvastatin (Zocor Tab) 40 mg QPM PO 12/04/16 21:00 01/03/17 20:59 12/06/16 20:44 40 MG Warfarin Sodium (Coumadin Tab) 5 mg HS PO 12/04/16 21:00 01/03/17 20:59 12/06/16 20:44 5 MG Non-Formulary Medication (Cinacalcet (Sensipar)) 60 mg DAILY PO 12/05/16 08:00 01/04/17 08:59 Future Hold Calcium Acetate (Phoslo Cap) 667 mg UD PRN PO 12/04/16 17:15 01/03/17 17:14 12/05/16 10:39 667 MG Glucose (Glucose 40% Gel) 15-30 GRAMS 15 GRAMS... UD PRN PO 12/04/16 17:30 01/03/17 17:29 Glucose (Glucose Chew Tab) 4-8 Tablets 4 Tabl... UD PRN PO 12/04/16 17:30 01/03/17 17:29 Dextrose (Dextrose 50% 50ML Syringe) 25-50ML OF 50% DW IV FOR... UD PRN IV 12/04/16 17:30 01/03/17 17:29 Glucagon (Glucagon Inj) 1 mg UD PRN SQ 12/04/16 17:30 01/03/17 17:29 Acetaminophen (Tylenol Tab) 650 mg Q4H PRN PO 12/04/16 17:45 01/03/17 17:44 12/06/16 08:04 650 MG Ondansetron HCl (Zofran Inj) 4 mg Q6H PRN IV 12/04/16 17:45 01/03/17 17:44 Heparin Sodium (Porcine) (Heparin Sq 5000 Unit/0.5ml) 5,000 unit Q12 SQ 12/04/16 21:00 01/03/17 20:59 12/07/16 08:49 5,000 UNIT Miscellaneous Information (Pending Order) 1 ea DAILY@10 N/A 12/05/16 10:00 01/04/17 09:59 12/06/16 12:22 1 EA Epoetin Ramón (Procrit Inj) 4,000 units MoWeFr@0700 IV 12/05/16 11:00 01/04/17 10:59 Nystatin (Mycostatin Powder) 1 appln BID PRN EXT 12/05/16 13:30 01/04/17 13:29 Miscellaneous Information (Consult Glycemic Management Pharmacy) 1 ea UD PRN N/A 12/06/16 10:22 01/05/17 10:21 Insulin Glargine (Toujeo Solostar) 45 unit QAM SC 12/06/16 08:00 01/05/17 07:59 12/07/16 08:48 45 UNIT Impression (1) ESRD (end stage renal disease) on dialysis Mr. Corky Cabrera is a 71-year-old male with ESRD on HD admitted with weakness and knee pain. Recommendations ESRD: -- HD today, 4 kg as tolerated. Weight at dry weight (144 kg) currently but evidence of fluid on exam. -- Typical treatment 4.5 hrs, Opti 200, Qb 450, Qd 800, 2K/2 Ca Anemia: -- [place] [address] QHD -- Tsat low but ferritin elevated -- Will give one time dose of 200 mg venofer with HD today CKD/MBD: -- [facility]
[2016-12-07] MEDS: EPOETIN ALFA 4000 UNITS/ML VIAL IV SCH (10:00)
[2016-12-07] MEDS ORDERED: IRON SUCROSE INJ 200 MG in SYRINGE 0 ML IV SCH (10:30)
--- NOTE | 2016-12-07 14:57 | Pharmacy Progress Note ---
Glycemic Control: Progress Nt Date of Service Dec 07, 2016. Scope Glycemic Pharmacist consulted by Dr Adam on 12/06/16 for glycemic control and to write orders per [facility] inpatient glycemic control protocol. Objective Accuchecks BSG (last 24hrs): Test 12/06/16 16:47 12/06/16 19:57 12/07/16 05:05 12/07/16 07:35 Bedside Glucose 154 mg/dl (70-99) 196 mg/dl (70-99) 113 mg/dl (70-99) Random Glucose 106 mg/dl (70-99) Laboratory Data (last 24hrs) Test 12/07/16 05:05 Anion Gap 13.0 mmol/L BUN/Creatinine Ratio 8.9 Blood Urea Nitrogen 79 mg/dl Creatinine 8.90 mg/dl Potassium Level 5.5 mmol/L Sodium Level 135 mmol/L White Blood Count 6.85 K/uL HbA1c: Test 12/05/16 06:04 Hemoglobin A1c 6.0 % (4.5-5.6) H Recent Pertinent Medications Outpatient Anti-diabetic Regimen: * Toujeo 45 units SQ q AM * NovoLog AC * Goal range: 125-150mg/dL * Correction factor: 15mg/dL/unit * Carb ratio: 1 unit per 5g of CHO consumed * A1c = difficult to interpret secondary to ESRD/HD The patient is currently receiving: * Basal insulin: Toujeo 45 units SQ q AM * Correctional Insulin: NovoLog Correction per scale AC/HS Goal Range: Low 120 mg/dL - High 160 mg/dL Correction Factor: 18 mg/dL/unit * Prandial insulin: Per carb ratio of 1 unit per 6 grams CHO consumed Risk Factors for Insulin Resistance: * Diet: renal Risk Factors for Insulin Sensitivity: * Renal insufficiency: dialysis F Assessment & Plan ASSESSMENT: * ADA & AACE recommend a goal blood sugar range 140-180 mg/dl for the majority of critically ill & non-critically ill patients. However, more stringent targets may be selected in individual cases. Will utilize the patient's home goal range of 125-150mg/dL 12/06/16 * Received consult for Mr. Cabrera today as he is preparing to transition from formulary Lantus to non-formulary home medication Toujeo * both are insulin glargine, however the concentrations differ (100u/mL vs. 300u/mL, respectively) * Today, fasting BSG appropriate at 118mg/dL * transitioning to home Toujeo as mentioned, no other change to basal insulin at this time * BSGs did rise throughout the day yesterday * will tighten NovoLog parameters to better match home regimen and likely improve glycemic control * A1c is difficult to interpret secondary to ESRD/HD 12/07/16 * BSGs well controlled yesterday with 73 units of insulin administered * slightly weighted toward basal - may need to reduce Toujeo dosing while admitted - follow AM fasting on 12/08 for confirmation of this * Since BSG this AM slightly below goal range * Loosen NovoLog coverage PLAN FOR INPATIENT GLYCEMIC CONTROL: * Toujeo 45 units SQ daily * Continue NovoLog AC (no HS dosing per home schedule) * Correction factor tightened to 20 mg/dL/uni * Carb ratio tightened to 1 unit per 7 g of CHO consumed * Goal range: 120-160mg/dL RECOMMENDATIONS FOR DISCHARGE: * Likely, can continue home regimen at [place] * Please note that the plan above was derived based on current level of insulin resistance and hospital stress. These recommendations are appropriate for inpatient admission only. Plan of care upon discharge will need to be reassessed to avoid potential outpatient hypo/hyperglycemia. Thank you.
--- NOTE | 2016-12-07 15:19 | Hospitalist Progress Note ---
Hospitalist Progress Note Date of Service Dec 07, 2016. Subjective Pt evaluation today including: conversation w/ patient, physical exam, chart review, lab review, review of studies, review of inpatient medication list Patient had no acute issues overnight Constitutional: No fever Eyes: No worsening of vision ENT: No hearing loss Respiratory: No cough, No shortness of breath Cardiovascular: No chest pain Abdomen: No constipation, No pain, No vomiting Musculoskeletal: No joint pain Male : No dysuria Neurologic: No memory loss Psychiatric: No depression symptoms Medications Current Inpatient Medications Medications (Trade) Dose Ordered Sig/Katiuska Route Start Time Stop Time Status Last Admin Dose Admin Allopurinol (Zyloprim Tab) 100 mg DAILY PO 12/05/16 08:00 01/04/17 08:59 12/07/16 08:44 100 MG Aspirin (Ecotrin Tab) 81 mg DAILY PO 12/05/16 08:00 01/04/17 08:59 12/07/16 08:44 81 MG Calcium Acetate (Phoslo Cap) 2,001 mg TIDM PO 12/04/16 18:00 01/03/17 17:59 12/07/16 14:30 2,001 MG Gabapentin (Neurontin Cap) 100 mg QAM PO 12/05/16 08:00 01/04/17 08:59 12/07/16 08:44 100 MG Insulin Aspart (novoLOG ASPART) AC SC 12/05/16 06:30 01/04/17 07:59 12/07/16 15:08 4 UNITS Polyethylene (Miralax Powder Packet) 17 gm QAM PO 12/05/16 08:00 01/04/17 08:59 12/07/16 08:44 17 GM Simvastatin (Zocor Tab) 40 mg QPM PO 12/04/16 21:00 01/03/17 20:59 12/06/16 20:44 40 MG Warfarin Sodium (Coumadin Tab) 5 mg HS PO 12/04/16 21:00 01/03/17 20:59 12/06/16 20:44 5 MG Non-Formulary Medication (Cinacalcet (Sensipar)) 60 mg DAILY PO 12/05/16 08:00 01/04/17 08:59 Future Hold Calcium Acetate (Phoslo Cap) 667 mg UD PRN PO 12/04/16 17:15 01/03/17 17:14 12/05/16 10:39 667 MG Glucose (Glucose 40% Gel) 15-30 GRAMS 15 GRAMS... UD PRN PO 12/04/16 17:30 01/03/17 17:29 Glucose (Glucose Chew Tab) 4-8 Tablets 4 Tabl... UD PRN PO 12/04/16 17:30 01/03/17 17:29 Dextrose (Dextrose 50% 50ML Syringe) 25-50ML OF 50% DW IV FOR... UD PRN IV 12/04/16 17:30 01/03/17 17:29 Glucagon (Glucagon Inj) 1 mg UD PRN SQ 12/04/16 17:30 01/03/17 17:29 Acetaminophen (Tylenol Tab) 650 mg Q4H PRN PO 12/04/16 17:45 01/03/17 17:44 12/06/16 08:04 650 MG Ondansetron HCl (Zofran Inj) 4 mg Q6H PRN IV 12/04/16 17:45 01/03/17 17:44 Heparin Sodium (Porcine) (Heparin Sq 5000 Unit/0.5ml) 5,000 unit Q12 SQ 12/04/16 21:00 01/03/17 20:59 12/07/16 08:49 5,000 UNIT Miscellaneous Information (Pending Order) 1 ea DAILY@10 N/A 12/05/16 10:00 01/04/17 09:59 12/06/16 12:22 1 EA Nystatin (Mycostatin Powder) 1 appln BID PRN EXT 12/05/16 13:30 01/04/17 13:29 Miscellaneous Information (Consult Glycemic Management Pharmacy) 1 ea UD PRN N/A 12/06/16 10:22 01/05/17 10:21 Insulin Glargine 45 unit 45 unit QAM SC 12/06/16 08:00 01/05/17 07:59 12/07/16 08:48 45 UNIT Iron Sucrose/ Syringe (Venofer Inj/ Syringe) 10 ml @ 0 mls/min TODAY@1030 IV 12/07/16 10:30 12/07/16 18:00 12/07/16 11:15 10 MLS/MIN Epoetin Ramón (Procrit Inj) 10,000 units MoWeFr@0700 IV. 12/09/16 07:00 01/08/17 06:59 Objective Vital Signs Date Time Temp Pulse Resp B/P Pulse Ox O2 Delivery O2 Flow Rate FiO2 12/07/16 14:10 36.4 61 95/47 12/07/16 13:30 63 93/48 12/07/16 13:15 62 96/45 12/07/16 13:00 62 96/50 12/07/16 12:45 60 91/46 12/07/16 12:30 60 86/48 12/07/16 12:15 60 89/47 12/07/16 12:00 61 81/43 12/07/16 11:45 60 80/43 12/07/16 11:30 61 81/44 12/07/16 11:15 60 81/40 12/07/16 11:00 61 71/43 12/07/16 10:45 58 75/38 12/07/16 10:30 61 76/39 12/07/16 10:15 59 83/43 12/07/16 10:00 59 89/41 12/07/16 09:45 60 83/41 12/07/16 09:30 36.0 60 85/42 12/07/16 08:25 Nasal Cannula 3.0 12/07/16 07:40 36.6 68 18 118/72 99 Nasal Cannula 4.0 12/07/16 00:30 Nasal Cannula 3.0 12/07/16 00:19 37.0 74 20 145/61 99 Nasal Cannula 4.0 12/06/16 16:25 36.9 75 18 100/58 91 Room Air 12/06/16 16:00 Nasal Cannula 3.0 Physical Exam General Appearance: WD/WN, no apparent distress, + obese Eyes: normal inspection ENT: normal ENT inspection, hearing grossly normal Neck: supple, no adenopathy Respiratory/Chest: chest non-tender, lungs clear, normal breath sounds, + decreased breath sounds Cardiovascular: regular rate, rhythm, no edema, no gallop Abdomen: normal bowel sounds, non tender, soft Extremities: normal range of motion, non-tender, normal inspection 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, no motor/sensory deficits, alert, oriented x 3 Laboratory Results Last 24 Hours Test 12/06/16 16:47 12/06/16 19:57 12/07/16 05:05 12/07/16 07:35 Bedside Glucose 154 mg/dl 196 mg/dl 113 mg/dl White Blood Count 6.85 K/uL Red Blood Count 2.95 M/uL Hemoglobin 8.5 g/dL Hematocrit 26.9 % Mean Corpuscular Volume 91.2 fL Mean Corpuscular Hemoglobin 28.8 pg Mean Corpuscular Hemoglobin Concent 31.6 g/dl RDW Standard Deviation 56.9 fL RDW Coefficient of Variation 17.2 % Platelet Count 259 K/uL Mean Platelet Volume 9.6 fL Prothrombin Time 14.6 SECONDS Prothromb Time International Ratio 1.3 Sodium Level 135 mmol/L Potassium Level 5.5 mmol/L Chloride Level 94 mmol/L Carbon Dioxide Level 28 mmol/L Anion Gap 13.0 mmol/L Blood Urea Nitrogen 79 mg/dl Creatinine 8.90 mg/dl Est Creatinine Clear Calc Drug Dose 10.8 ml/min Estimated GFR () 6.2 Estimated GFR (Non- 5.4 BUN/Creatinine Ratio 8.9 Random Glucose 106 mg/dl Calcium Level 8.5 mg/dl Iron Level 28 mcg/dl Total Iron Binding Capacity 157 mcg/dl Transferrin 114 mg/dl Transferrin % Saturation 18 % Ferritin 1095.0 ng/ml Assessment and Plan Patient is a 71 y.o.M who presented to [facility] with fall and weakness Weakness - suspect 2/2 to deconditioning - Pt/OT - awaiting placement in SNF Mechanical Fall - PT/OT Hypotension - patient SBP run in the low 90's from previous admissions -asymptomatic - at baseline DMII - continue home medication ESRD - currently euvolemic - appreciate nephrology input - HD MWF Chronic Hypoxic Respiratory failure - currently at baseline 2-3 liters h/o PVD - cont simvastatin , ASA and coumadin Diastolic CHF - currently euvolemic - blood pressure control/daily weights JORJE - on nocturnal CPAP SSS with h/o PPM - noted Morbid obesity -nutrition consult Disposition-awaiting placement .
[2016-12-07] MEDS: WARFARIN SOD 5 MG TAB PO SCH (21:06)
[2016-12-07] MEDS: SIMVASTATIN 40 MG TAB PO SCH (21:09)
[2016-12-08 00:34] VITALS: BP 113/66; PULSE 68; TEMP 37; O2SAT 100
[2016-12-08 05:56] LABS: INR 1.4 (0.9-1.1); PROTHROMBIN TIME (PATIENT) 15.1 SECONDS (9.0-12.0)
[2016-12-08 08:23] VITALS: BP 115/67; PULSE 62; TEMP 36.4; O2SAT 100
[2016-12-08] MEDS: GABAPENTIN 100 MG CAP PO SCH (09:00)
[2016-12-08] MEDS: CALCIUM ACETATE 667MG GELCAP PO SCH ×3 (09:00→17:35)
[2016-12-08] MEDS: ASPIRIN 81 MG ECTAB PO SCH (09:00)
[2016-12-08] MEDS: ALLOPURINOL 100 MG TAB PO SCH (09:00)
[2016-12-08] MEDS: POLYETHYLENE (MIRALAX) 17 GM PACK PO SCH (09:01)
[2016-12-08] MEDS: INSULIN ASPART 100 UNITS/ML 3 ML PEN SC SCH ×3 (09:07→18:53)
[2016-12-08] MEDS: HEPARIN SOD 5000 UNIT/0.5 ML CARP SQ SCH ×2 (09:08→21:51)
[2016-12-08] MEDS: INSULIN GLARGINE 300 UNITS/ML INJ SC SCH (09:08)
--- NOTE | 2016-12-08 09:20 | Pharmacy Progress Note ---
Glycemic Control: Progress Nt Date of Service Dec 08, 2016. Scope Glycemic Pharmacist consulted by Dr Adam on 12/06/16 for glycemic control and to write orders per [facility] inpatient glycemic control protocol. Objective Accuchecks BSG (last 24hrs): Test 12/07/16 14:20 12/07/16 16:31 12/07/16 19:56 12/08/16 07:55 Bedside Glucose 91 mg/dl (70-99) 124 mg/dl (70-99) 137 mg/dl (70-99) 122 mg/dl (70-99) HbA1c: Test 12/05/16 06:04 Hemoglobin A1c 6.0 % (4.5-5.6) H Recent Pertinent Medications Outpatient Anti-diabetic Regimen: * Toujeo 45 units SQ q AM * NovoLog AC * Goal range: 125-150mg/dL * Correction factor: 15mg/dL/unit * Carb ratio: 1 unit per 5g of CHO consumed * A1c = difficult to interpret secondary to ESRD/HD The patient is currently receiving: * Basal insulin: Toujeo 45 units SQ q AM * Correctional Insulin: NovoLog Correction per scale AC/HS Goal Range: Low 120 mg/dL - High 160 mg/dL Correction Factor: 20 mg/dL/unit * Prandial insulin: Per carb ratio of 1 unit per 7 grams CHO consumed Risk Factors for Insulin Resistance: * Diet: renal Risk Factors for Insulin Sensitivity: * Renal insufficiency: dialysis F Assessment & Plan ASSESSMENT: * ADA & AACE recommend a goal blood sugar range 140-180 mg/dl for the majority of critically ill & non-critically ill patients. However, more stringent targets may be selected in individual cases. Will utilize the patient's home goal range of 125-150mg/dL 12/06/16 * Received consult for Mr. Cabrera today as he is preparing to transition from formulary Lantus to non-formulary home medication Toujeo * both are insulin glargine, however the concentrations differ (100u/mL vs. 300u/mL, respectively) * Today, fasting BSG appropriate at 118mg/dL * transitioning to home Toujeo as mentioned, no other change to basal insulin at this time * BSGs did rise throughout the day yesterday * will tighten NovoLog parameters to better match home regimen and likely improve glycemic control * A1c is difficult to interpret secondary to ESRD/HD 12/07/16 * BSGs well controlled yesterday with 73 units of insulin administered * slightly weighted toward basal - may need to reduce Toujeo dosing while admitted - follow AM fasting on 12/08 for confirmation of this * Since BSG this AM slightly below goal range * Loosen NovoLog coverage 12/08/16 * BSGs well controlled with current regimen. Pharmacy to sign off at this time. Thank you for allowing us to participate in the care of Mr. Cabrera and please feel free to re-consult us at anytime if clinical status changes. PLAN FOR INPATIENT GLYCEMIC CONTROL: * Continue home Toujeo 45 units SQ daily * Continue NovoLog AC (no HS dosing per home schedule) * Correction factor tightened to 20 mg/dL/uni * Carb ratio tightened to 1 unit per 7 g of CHO consumed * Goal range: 120-160mg/dL RECOMMENDATIONS FOR DISCHARGE: * Likely, can continue home regimen at [place] * Please note that the plan above was derived based on current level of insulin resistance and hospital stress. These recommendations are appropriate for inpatient admission only. Plan of care upon discharge will need to be reassessed to avoid potential outpatient hypo/hyperglycemia. Thank you.
--- NOTE | 2016-12-08 10:33 | Nephrology Progress Note ---
Nephrology Progress Note Date of Service Dec 08, 2016. Chief Complaint ESRD Subjective No acute events overnight. Generalized weakness persists. Denies shortness of breath. Denies pain. Transfers performed with assist. Disposition unclear at this time. Tolerated HD yesterday, net UF 4 kg. Remains approximately 1 kg over EDW. Review of Systems A complete review of systems was performed. Pertinent positives are noted above. All other systems are negative. Vital Signs Last 8 Hrs Date Time Temp Pulse Resp B/P Pulse Ox O2 Delivery O2 Flow Rate FiO2 12/08/16 08:23 36.4 62 16 115/67 100 Nasal Cannula 4.0 I & O 24-Hour Column 12/08/16 07:59 Intake Total 590 ml Output Total 4000 ml Balance -3410 ml Last Recorded Weight Weight (Kilograms): 148.100 Physical Exam General Appearance: no apparent distress, + obese Head: normocephalic, atraumatic Eyes: normal inspection, sclerae normal ENT: normal ENT inspection, pharynx normal Neck: supple, + pertinent finding (unable to appreciate JVP) Respiratory/Chest: lungs clear Cardiovascular: regular rate, rhythm, no gallop Abdomen/GI: non tender, soft Extremities/Musculoskelatal: normal inspection, + pedal edema, + pertinent finding (AVF with thrill and bruit) Neurologic/Psych: alert, oriented x 3 Family History Patient reports no known family medical history. Social History Smoking Status: Never smoker Drug Use: none Marital Status: Housing Status: lives with family Occupation: retired Laboratory Results Past 24 Hours Test 12/07/16 14:20 12/07/16 16:31 12/07/16 19:56 12/08/16 05:28 Bedside Glucose 91 mg/dl (70-99) 124 mg/dl (70-99) 137 mg/dl (70-99) Prothrombin Time 15.1 SECONDS (9.0-12.0) Prothromb Time International Ratio 1.4 (0.9-1.1) Test 12/08/16 07:55 Bedside Glucose 122 mg/dl (70-99) Allergies Coded Allergies: No Known Allergies (Verified , 12/04/16) Medications Current Inpatient Medications Medications (Trade) Dose Ordered Sig/Katiuska Route Start Time Stop Time Status Last Admin Dose Admin Allopurinol (Zyloprim Tab) 100 mg DAILY PO 12/05/16 08:00 01/04/17 08:59 12/08/16 09:00 100 MG Aspirin (Ecotrin Tab) 81 mg DAILY PO 12/05/16 08:00 01/04/17 08:59 12/08/16 09:00 81 MG Calcium Acetate (Phoslo Cap) 2,001 mg TIDM PO 12/04/16 18:00 01/03/17 17:59 12/08/16 09:00 2,001 MG Gabapentin (Neurontin Cap) 100 mg QAM PO 12/05/16 08:00 01/04/17 08:59 12/08/16 09:00 100 MG Insulin Aspart (novoLOG ASPART) AC SC 12/05/16 06:30 01/04/17 07:59 12/08/16 09:07 7 UNITS Polyethylene (Miralax Powder Packet) 17 gm QAM PO 12/05/16 08:00 01/04/17 08:59 12/08/16 09:01 17 GM Simvastatin (Zocor Tab) 40 mg QPM PO 12/04/16 21:00 01/03/17 20:59 12/07/16 21:09 40 MG Warfarin Sodium (Coumadin Tab) 5 mg HS PO 12/04/16 21:00 01/03/17 20:59 12/07/16 21:06 5 MG Non-Formulary Medication (Cinacalcet (Sensipar)) 60 mg DAILY PO 12/05/16 08:00 01/04/17 08:59 Future Hold Calcium Acetate (Phoslo Cap) 667 mg UD PRN PO 12/04/16 17:15 01/03/17 17:14 12/05/16 10:39 667 MG Glucose (Glucose 40% Gel) 15-30 GRAMS 15 GRAMS... UD PRN PO 12/04/16 17:30 01/03/17 17:29 Glucose (Glucose Chew Tab) 4-8 Tablets 4 Tabl... UD PRN PO 12/04/16 17:30 01/03/17 17:29 Dextrose (Dextrose 50% 50ML Syringe) 25-50ML OF 50% DW IV FOR... UD PRN IV 12/04/16 17:30 01/03/17 17:29 Glucagon (Glucagon Inj) 1 mg UD PRN SQ 12/04/16 17:30 01/03/17 17:29 Acetaminophen (Tylenol Tab) 650 mg Q4H PRN PO 12/04/16 17:45 01/03/17 17:44 12/06/16 08:04 650 MG Ondansetron HCl (Zofran Inj) 4 mg Q6H PRN IV 12/04/16 17:45 01/03/17 17:44 Heparin Sodium (Porcine) (Heparin Sq 5000 Unit/0.5ml) 5,000 unit Q12 SQ 12/04/16 21:00 01/03/17 20:59 12/08/16 09:08 5,000 UNIT Miscellaneous Information (Pending Order) 1 ea DAILY@10 N/A 12/05/16 10:00 01/04/17 09:59 12/06/16 12:22 1 EA Nystatin (Mycostatin Powder) 1 appln BID PRN EXT 12/05/16 13:30 01/04/17 13:29 Insulin Glargine (Toujeo Solostar) 45 unit QAM SC 12/06/16 08:00 01/05/17 07:59 12/08/16 09:08 45 UNIT Epoetin Ramón (Procrit Inj) 10,000 units MoWeFr@0700 IV. 12/09/16 07:00 01/08/17 06:59 Impression (1) ESRD (end stage renal disease) on dialysis Mr. Corky Cabrera is a 71-year-old male with ESRD on HD admitted with weakness and knee pain. Recommendations ESRD: -- HD MWF. -- Corky remains above his EDW with evidence of edema on exam. He refused additional UF >4 kg during dialysis yesterday and did not want additional UF today -- Plan HD tomorrow for UF as tolerated -- Weight at dry weight (144 kg) currently but evidence of fluid on exam. -- Typical treatment 4.5 hrs, Opti 200, Qb 450, Qd 800, 2K/2 Ca Anemia: -- [place] [address] QHD -- Tsat low but ferritin elevated -- One time dose of 200 mg venofer with HD yesterday CKD/MBD: -- Phoslo QAC
[2016-12-08 12:08] VITALS: BP 102/60; PULSE 65; TEMP 36.7; O2SAT 97
--- NOTE | 2016-12-08 14:46 | Hospitalist Progress Note ---
Hospitalist Progress Note Date of Service Dec 08, 2016. Subjective Pt evaluation today including: conversation w/ patient, physical exam, chart review, lab review, review of studies, review of inpatient medication list Patient had no acute issues overnight Denies any chest pain or SOB Constitutional: No fever Eyes: No worsening of vision ENT: No hearing loss Respiratory: No cough, No shortness of breath Cardiovascular: No chest pain Abdomen: No constipation, No pain, No vomiting Musculoskeletal: No joint pain Male : No dysuria Neurologic: No memory loss Psychiatric: No depression symptoms Endo: No fatigue Skin: No itch, No rash Medications Current Inpatient Medications Medications (Trade) Dose Ordered Sig/Katiuska Route Start Time Stop Time Status Last Admin Dose Admin Allopurinol (Zyloprim Tab) 100 mg DAILY PO 12/05/16 08:00 01/04/17 08:59 12/08/16 09:00 100 MG Aspirin (Ecotrin Tab) 81 mg DAILY PO 12/05/16 08:00 01/04/17 08:59 12/08/16 09:00 81 MG Calcium Acetate (Phoslo Cap) 2,001 mg TIDM PO 12/04/16 18:00 01/03/17 17:59 12/08/16 12:36 2,001 MG Gabapentin (Neurontin Cap) 100 mg QAM PO 12/05/16 08:00 01/04/17 08:59 12/08/16 09:00 100 MG Insulin Aspart (novoLOG ASPART) AC SC 12/05/16 06:30 01/04/17 07:59 12/08/16 12:40 9 UNITS Polyethylene (Miralax Powder Packet) 17 gm QAM PO 12/05/16 08:00 01/04/17 08:59 12/08/16 09:01 17 GM Simvastatin (Zocor Tab) 40 mg QPM PO 12/04/16 21:00 01/03/17 20:59 12/07/16 21:09 40 MG Warfarin Sodium (Coumadin Tab) 5 mg HS PO 12/04/16 21:00 01/03/17 20:59 12/07/16 21:06 5 MG Non-Formulary Medication (Cinacalcet (Sensipar)) 60 mg DAILY PO 12/05/16 08:00 01/04/17 08:59 Future Hold Calcium Acetate (Phoslo Cap) 667 mg UD PRN PO 12/04/16 17:15 01/03/17 17:14 12/05/16 10:39 667 MG Glucose (Glucose 40% Gel) 15-30 GRAMS 15 GRAMS... UD PRN PO 12/04/16 17:30 01/03/17 17:29 Glucose (Glucose Chew Tab) 4-8 Tablets 4 Tabl... UD PRN PO 12/04/16 17:30 01/03/17 17:29 Dextrose (Dextrose 50% 50ML Syringe) 25-50ML OF 50% DW IV FOR... UD PRN IV 12/04/16 17:30 01/03/17 17:29 Glucagon (Glucagon Inj) 1 mg UD PRN SQ 12/04/16 17:30 01/03/17 17:29 Acetaminophen (Tylenol Tab) 650 mg Q4H PRN PO 12/04/16 17:45 01/03/17 17:44 12/06/16 08:04 650 MG Ondansetron HCl (Zofran Inj) 4 mg Q6H PRN IV 12/04/16 17:45 01/03/17 17:44 Heparin Sodium (Porcine) (Heparin Sq 5000 Unit/0.5ml) 5,000 unit Q12 SQ 12/04/16 21:00 01/03/17 20:59 12/08/16 09:08 5,000 UNIT Miscellaneous Information (Pending Order) 1 ea DAILY@10 N/A 12/05/16 10:00 01/04/17 09:59 12/06/16 12:22 1 EA Nystatin (Mycostatin Powder) 1 appln BID PRN EXT 12/05/16 13:30 01/04/17 13:29 Insulin Glargine (Toujeo Solostar) 45 unit QAM SC 12/06/16 08:00 01/05/17 07:59 12/08/16 09:08 45 UNIT Epoetin Ramón (Procrit Inj) 10,000 units MoWeFr@0700 IV. 12/09/16 07:00 01/08/17 06:59 Objective Vital Signs Date Time Temp Pulse Resp B/P Pulse Ox O2 Delivery O2 Flow Rate FiO2 12/08/16 12:08 36.7 65 18 102/60 97 12/08/16 08:50 Nasal Cannula 3.0 12/08/16 08:23 36.4 62 16 115/67 100 Nasal Cannula 4.0 12/08/16 00:34 37.0 68 20 113/66 100 Room Air 12/08/16 00:00 Nasal Cannula 3.0 12/07/16 20:00 Nasal Cannula 3.0 12/07/16 16:55 Nasal Cannula 3.0 12/07/16 16:04 36.8 61 18 104/61 99 Nasal Cannula 4.0 Physical Exam General Appearance: WD/WN, no apparent distress, + obese Eyes: normal inspection ENT: normal ENT inspection Neck: supple Respiratory/Chest: chest non-tender, lungs clear Cardiovascular: regular rate, rhythm, no edema Abdomen: normal bowel sounds, non tender, soft Extremities: normal range of motion, non-tender 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, no motor/sensory deficits, alert, oriented x 3 Skin: normal color, warm/dry Lymphatic: no adenopathy Laboratory Results Last 24 Hours Test 12/07/16 16:31 12/07/16 19:56 12/08/16 05:28 12/08/16 07:55 Bedside Glucose 124 mg/dl 137 mg/dl 122 mg/dl Prothrombin Time 15.1 SECONDS Prothromb Time International Ratio 1.4 Test 12/08/16 11:43 Bedside Glucose 147 mg/dl Assessment and Plan Patient is a 71 y.o.M who presented to [facility] with fall and weakness Weakness - suspect 2/2 to deconditioning - Pt/OT - awaiting placement in SNF Mechanical Fall - PT/OT Hypotension - patient SBP run in the low 90's from previous admissions -asymptomatic - at baseline DMII - continue home medication ESRD - currently euvolemic - appreciate nephrology input - HD MWF Chronic Hypoxic Respiratory failure - currently at baseline 2-3 liters h/o PVD - cont simvastatin , ASA and coumadin Diastolic CHF - currently euvolemic - blood pressure control/daily weights JORJE - on nocturnal CPAP SSS with h/o PPM - noted Morbid obesity -nutrition consulted Disposition-awaiting placement .
[2016-12-08 15:18] VITALS: BP 113/62; PULSE 61; TEMP 36.7; O2SAT 99
[2016-12-08] MEDS ORDERED: HEPARIN SOD (PORCINE) 1000 UNIT/ML 10 ML VIAL IV SCH (17:45)
[2016-12-08] MEDS: WARFARIN SOD 5 MG TAB PO SCH (21:50)
[2016-12-08] MEDS: SIMVASTATIN 40 MG TAB PO SCH (21:50)
[2016-12-08 23:44] VITALS: BP 109/64; PULSE 69; TEMP 36.8; O2SAT 100
[2016-12-09] VITALS (21 sets, daily range): BP systolic 81–124; BP diastolic 46–62; PULSE 60–98; TEMP 36–36.8; O2SAT 95–100
[2016-12-09 06:03] LABS: HEMATOCRIT 27.4 % (42-52); MEAN CORPUSCULAR HEMOGLOBIN 28.6 pg (25-34); MEAN CORPUSCULAR HGB CONC 31.4 g/dl (32-36); MEAN PLATELET VOLUME 9.6 fL (7.4-10.4); PLATELET COUNT 280 K/uL (130-400); RED BLOOD COUNT 3.01 M/uL (4.7-6.1); WHITE BLOOD COUNT 6.51 K/uL (4.8-10.8)
[2016-12-09 06:11] LABS: INR 1.4 (0.9-1.1); PROTHROMBIN TIME (PATIENT) 15.1 SECONDS (9.0-12.0)
[2016-12-09 06:37] LABS: CALCIUM 8.5 mg/dl (8.5-10.1); CREATININE 8.5 mg/dl (0.60-1.40); POTASSIUM 5.5 mmol/L (3.5-5.1)
[2016-12-09] MEDS: POLYETHYLENE (MIRALAX) 17 GM PACK PO SCH (07:50)
[2016-12-09] MEDS: GABAPENTIN 100 MG CAP PO SCH (07:52)
[2016-12-09] MEDS: CALCIUM ACETATE 667MG GELCAP PO SCH ×3 (07:52→17:50)
[2016-12-09] MEDS: ALLOPURINOL 100 MG TAB PO SCH (07:52)
[2016-12-09] MEDS: ASPIRIN 81 MG ECTAB PO SCH (07:52)
[2016-12-09] MEDS: INSULIN ASPART 100 UNITS/ML 3 ML PEN SC SCH ×3 (08:00→17:53)
[2016-12-09] MEDS: HEPARIN SOD 5000 UNIT/0.5 ML CARP SQ SCH ×2 (08:02→20:46)
[2016-12-09] MEDS: INSULIN GLARGINE 300 UNITS/ML INJ SC SCH (08:02)
[2016-12-09] MEDS: ACETAMINOPHEN 325 MG TAB PO PRN (08:04)
--- NOTE | 2016-12-09 09:59 | PROGRESS NOTE ---
DATE: 12/09/2016 SUBJECTIVE: Mr. Cabrera remains somewhat weak and is having difficulty in making any progress with physical therapy. He can stand for brief periods of time, but cannot ambulate. He feels generally weak, but has no other complaints. Particularly, he is no more short of breath than usual and he denies having any significant chest pain. He continues to have pain and stiffness in his knees as well as some generalized stiffness which he attributes to sitting. His appetite is reasonably good. He has no nausea or vomiting. He has no other symptoms of uremia or volume overload. OBJECTIVE: GENERAL: On physical exam when seen by me, Mr. Cabrera appears as an obviously obese, chronically ill gentleman who was in no significant distress when seen. He was wearing oxygen. VITAL SIGNS: His temperature is 36.4, his blood pressure 110/58, his pulse 61 and regular, respiratory rate 18-26, his pulse ox 100% on 4 liters of oxygen via nasal cannula. SKIN: Shows normal skin turgor. He has changes of seborrheic dermatitis on his face. He has multiple scars from prior surgical procedures. There is no rash or infiltrative skin disease. LYMPHATICS: Show no palpable lymphadenopathy. HEAD: Normal. EYES: Grossly normal. The ocular fundi were not examined. EARS, NOSE, MOUTH AND THROAT: Unremarkable. His oral mucous membranes are moist. NECK: Supple. There is no obvious jugular venous distention, but the exam is limited by his body habitus. I hear no carotid bruits and there is no thyromegaly. CHEST: Shows his diaphragms to be elevated and breath sounds diminished at the bases. He has no wheezes, rales or rhonchi. He does have a palpable pacemaker beneath the distal left clavicle. CARDIAC: Shows distant sounds. S1 and S2 seem normal. He has a grade 2-3/6 systolic murmur at the base. ABDOMEN: Morbidly obese. It is nontender. There is no organomegaly or mass. EXTREMITIES: Show trace to 1+ lower extremity edema. He has no calf tenderness. He has a right upper arm AV fistula, which is functioning. He has degenerative changes in both knees. NEUROLOGIC: Shows no lateralizing changes, but he has a relative global weakness. PERTINENT LABORATORY WORK: From today shows a white count of 6510. His hemoglobin is 8.6, his hematocrit 27.4, his platelet count 280,000. His prothrombin time is 15.1 with an INR of 1.4. Clinical chemistries show a sodium of 133 mmol/L, potassium of 5.5 mmol/L, chloride of 94 mmol/L, and CO2 content of 25 mmol/L. His anion gap is 14. He did have a serum albumin of 3.3 earlier during the hospital stay. His BUN is 85, his creatinine 8.50. His serum calcium is 8.5. Blood sugars have varied during the past 24 hours from 122-152. ASSESSMENT: Mr. Cabrera remains obviously weak. He has multiple chronic problems including his problems of chronic respiratory disease and end-stage renal disease. He does have a pacemaker in place. He has osteoarthritis, which is no doubt related to a great extent to his exogenous obesity. Nonetheless, his immediate problem is one of weakness. His hemoglobin has been in the range of about 8.5. He has had no angina, but it is likely that his weakness has been associated with his falling hemoglobin. PLAN: He does have a regular dialysis treatments scheduled for later this morning. We will proceed with a 2 unit packed red blood cell transfusion during dialysis. This was discussed with the patient and he agrees. Hopefully, this will improve his energy level and make him more amenable to attempts at physical therapy. Placement in the short term will also be important. I will speak with manager of case regarding that, but it may be that the appropriate placement for him would either be at [facility] or [facility] as long as he can be transported back and forth from dialysis. No other immediate recommendations. He will continue on his routine medications and diet.
[2016-12-09] MEDS: HEPARIN SOD (PORCINE) 1000 UNIT/ML 10 ML VIAL IV SCH ×3 (11:40→13:30)
--- NOTE | 2016-12-09 12:48 | Hospitalist Progress Note ---
Hospitalist Progress Note Date of Service Dec 09, 2016. Subjective Pt evaluation today including: conversation w/ patient, physical exam, chart review, lab review, review of studies, review of inpatient medication list Patient had no acute issues overnight Constitutional: No fever Eyes: No worsening of vision ENT: No hearing loss Respiratory: No cough, No shortness of breath Cardiovascular: No chest pain Abdomen: No constipation, No diarrhea, No pain, No vomiting Musculoskeletal: No joint pain Male : No dysuria Psychiatric: No depression symptoms Medications Current Inpatient Medications Medications (Trade) Dose Ordered Sig/Katiuska Route Start Time Stop Time Status Last Admin Dose Admin Allopurinol (Zyloprim Tab) 100 mg DAILY PO 12/05/16 08:00 01/04/17 08:59 12/09/16 07:52 100 MG Aspirin (Ecotrin Tab) 81 mg DAILY PO 12/05/16 08:00 01/04/17 08:59 12/09/16 07:52 81 MG Calcium Acetate (Phoslo Cap) 2,001 mg TIDM PO 12/04/16 18:00 01/03/17 17:59 12/09/16 07:52 2,001 MG Gabapentin (Neurontin Cap) 100 mg QAM PO 12/05/16 08:00 01/04/17 08:59 12/09/16 07:52 100 MG Insulin Aspart (novoLOG ASPART) AC SC 12/05/16 06:30 01/04/17 07:59 12/09/16 08:00 7 UNITS Polyethylene (Miralax Powder Packet) 17 gm QAM PO 12/05/16 08:00 01/04/17 08:59 12/09/16 07:50 17 GM Simvastatin (Zocor Tab) 40 mg QPM PO 12/04/16 21:00 01/03/17 20:59 12/08/16 21:50 40 MG Warfarin Sodium (Coumadin Tab) 5 mg HS PO 12/04/16 21:00 01/03/17 20:59 12/08/16 21:50 5 MG Non-Formulary Medication (Cinacalcet (Sensipar)) 60 mg DAILY PO 12/05/16 08:00 01/04/17 08:59 Future Hold Calcium Acetate (Phoslo Cap) 667 mg UD PRN PO 12/04/16 17:15 01/03/17 17:14 12/05/16 10:39 667 MG Glucose (Glucose 40% Gel) 15-30 GRAMS 15 GRAMS... UD PRN PO 12/04/16 17:30 01/03/17 17:29 Glucose (Glucose Chew Tab) 4-8 Tablets 4 Tabl... UD PRN PO 12/04/16 17:30 01/03/17 17:29 Dextrose (Dextrose 50% 50ML Syringe) 25-50ML OF 50% DW IV FOR... UD PRN IV 12/04/16 17:30 01/03/17 17:29 Glucagon (Glucagon Inj) 1 mg UD PRN SQ 12/04/16 17:30 01/03/17 17:29 Acetaminophen (Tylenol Tab) 650 mg Q4H PRN PO 12/04/16 17:45 01/03/17 17:44 12/09/16 08:04 650 MG Ondansetron HCl (Zofran Inj) 4 mg Q6H PRN IV 12/04/16 17:45 01/03/17 17:44 Heparin Sodium (Porcine) (Heparin Sq 5000 Unit/0.5ml) 5,000 unit Q12 SQ 12/04/16 21:00 01/03/17 20:59 12/09/16 08:02 5,000 UNIT Miscellaneous Information (Pending Order) 1 ea DAILY@10 N/A 12/05/16 10:00 01/04/17 09:59 12/06/16 12:22 1 EA Nystatin (Mycostatin Powder) 1 appln BID PRN EXT 12/05/16 13:30 01/04/17 13:29 Insulin Glargine (Toujeo Solostar) 45 unit QAM SC 12/06/16 08:00 01/05/17 07:59 12/09/16 08:02 45 UNIT Epoetin Ramón (Procrit Inj) 10,000 units MoWeFr@0700 IV. 12/09/16 07:00 01/08/17 06:59 Objective Vital Signs Date Time Temp Pulse Resp B/P Pulse Ox O2 Delivery O2 Flow Rate FiO2 12/09/16 10:32 36.4 60 93/46 12/09/16 09:20 36.4 61 26 110/58 100 Nasal Cannula 4.0 12/09/16 08:16 36.0 65 20 124/62 96 Nasal Cannula 4.0 12/09/16 08:10 Nasal Cannula 4.0 12/09/16 00:30 Nasal Cannula 4.0 12/08/16 23:44 36.8 69 20 109/64 100 Nasal Cannula 4.0 12/08/16 16:00 Nasal Cannula 4.0 12/08/16 15:18 36.7 61 18 113/62 99 Nasal Cannula 3.0 Physical Exam General Appearance: WD/WN, no apparent distress, + obese Eyes: normal inspection ENT: normal ENT inspection Neck: supple Respiratory/Chest: chest non-tender, lungs clear Cardiovascular: regular rate, rhythm, no edema Abdomen: normal bowel sounds, non tender, soft Extremities: normal range of motion, non-tender Neurologic/Psychiatric: cost control specialist II-XII nml as tested, no motor/sensory deficits, alert, oriented x 3 Skin: normal color, warm/dry, no rash Lymphatic: no adenopathy Laboratory Results Last 24 Hours Test 12/08/16 16:51 12/08/16 19:56 12/09/16 05:11 12/09/16 07:29 Bedside Glucose 136 mg/dl 122 mg/dl 152 mg/dl White Blood Count 6.51 K/uL Red Blood Count 3.01 M/uL Hemoglobin 8.6 g/dL Hematocrit 27.4 % Mean Corpuscular Volume 91.0 fL Mean Corpuscular Hemoglobin 28.6 pg Mean Corpuscular Hemoglobin Concent 31.4 g/dl RDW Standard Deviation 55.2 fL RDW Coefficient of Variation 16.8 % Platelet Count 280 K/uL Mean Platelet Volume 9.6 fL Prothrombin Time 15.1 SECONDS Prothromb Time International Ratio 1.4 Sodium Level 133 mmol/L Potassium Level 5.5 mmol/L Chloride Level 94 mmol/L Carbon Dioxide Level 25 mmol/L Anion Gap 14.0 mmol/L Blood Urea Nitrogen 85 mg/dl Creatinine 8.50 mg/dl Est Creatinine Clear Calc Drug Dose 11.2 ml/min Estimated GFR () 6.6 Estimated GFR (Non- 5.7 BUN/Creatinine Ratio 10.0 Random Glucose 130 mg/dl Calcium Level 8.5 mg/dl Test 12/09/16 11:20 Bedside Glucose 130 mg/dl Assessment and Plan Patient is a 71 y.o.M who presented to [facility] with fall and weakness Weakness - suspect 2/2 to deconditioning - Pt/OT - awaiting placement in SNF Mechanical Fall - PT/OT Hypotension - patient SBP run in the low 90's from previous admissions -asymptomatic - at baseline DMII - continue home medication ESRD - currently euvolemic - appreciate nephrology input - HD MWF Chronic Hypoxic Respiratory failure - currently at baseline 2-3 liters h/o PVD - cont simvastatin , ASA and coumadin Diastolic CHF - currently euvolemic - blood pressure control/daily weights JORJE - on nocturnal CPAP SSS with h/o PPM - noted Morbid obesity -nutrition consulted Disposition-[facility] rehab liason to meet with patient, awaiting decision on placement .
[2016-12-09] MEDS: EPOETIN ALFA 10,000 UNITS/ML VIAL IV. SCH (14:33)
[2016-12-09] MEDS: CALCIUM ACETATE 667MG GELCAP PO PRN (20:44)
[2016-12-09] MEDS: WARFARIN SOD 5 MG TAB PO SCH (20:44)
[2016-12-09] MEDS: SIMVASTATIN 40 MG TAB PO SCH (20:44)
[2016-12-10] VITALS: O2SAT 95
[2016-12-10 07:50] VITALS: O2SAT 100
[2016-12-10] MEDS: POLYETHYLENE (MIRALAX) 17 GM PACK PO SCH (08:16)
[2016-12-10 08:17] VITALS: BP 108/63; PULSE 63; TEMP 36.5; O2SAT 100
[2016-12-10] MEDS: CALCIUM ACETATE 667MG GELCAP PO SCH ×3 (08:17→17:19)
[2016-12-10] MEDS: GABAPENTIN 100 MG CAP PO SCH (08:17)
[2016-12-10] MEDS: ASPIRIN 81 MG ECTAB PO SCH (08:17)
[2016-12-10] MEDS: ALLOPURINOL 100 MG TAB PO SCH (08:17)
[2016-12-10] MEDS: ACETAMINOPHEN 325 MG TAB PO PRN (08:23)
[2016-12-10] MEDS: INSULIN GLARGINE 300 UNITS/ML INJ SC SCH (08:24)
[2016-12-10] MEDS: INSULIN ASPART 100 UNITS/ML 3 ML PEN SC SCH ×3 (08:25→17:24)
[2016-12-10] MEDS: HEPARIN SOD 5000 UNIT/0.5 ML CARP SQ SCH ×2 (10:04→20:51)
--- NOTE | 2016-12-10 11:07 | Nephrology Progress Note ---
Nephrology Progress Note Date of Service Dec 10, 2016. Chief Complaint ESRD Subjective No acute events overnight. Remains weak but no acute complaints this morning. Tolerated HD yesterday, UF 5 kg. 2 u PRBC with HD 12/09/16. Review of Systems A complete review of systems was performed. Pertinent positives are noted above. All other systems are negative. Vital Signs Last 8 Hrs Date Time Temp Pulse Resp B/P Pulse Ox O2 Delivery O2 Flow Rate FiO2 12/10/16 08:17 36.5 63 18 108/63 100 Nasal Cannula 4.0 12/10/16 07:50 100 Nasal Cannula 4.0 I & O 24-Hour Column 12/10/16 08:00 Intake Total 870 ml Output Total 5080 ml Balance -4210 ml Last Recorded Weight Weight (Kilograms): 149.300 Physical Exam General Appearance: no apparent distress, + obese Head: normocephalic, atraumatic Eyes: normal inspection, sclerae normal ENT: normal ENT inspection, pharynx normal Neck: supple, no JVD Respiratory/Chest: lungs clear, no respiratory distress, no accessory muscle use Cardiovascular: regular rate, rhythm, no murmur Abdomen/GI: non tender, soft Extremities/Musculoskelatal: normal inspection, no pedal edema Neurologic/Psych: alert, oriented x 3 Family History Patient reports no known family medical history. Social History Smoking Status: Never smoker Drug Use: none Marital Status: Housing Status: lives with family Occupation: retired Laboratory Results Past 24 Hours Test 12/09/16 11:20 12/09/16 15:32 12/09/16 17:29 12/09/16 20:20 Bedside Glucose 130 mg/dl (70-99) 103 mg/dl (70-99) 143 mg/dl (70-99) 129 mg/dl (70-99) Allergies Coded Allergies: No Known Allergies (Verified , 12/04/16) Medications Current Inpatient Medications Medications (Trade) Dose Ordered Sig/Katiuska Route Start Time Stop Time Status Last Admin Dose Admin Allopurinol (Zyloprim Tab) 100 mg DAILY PO 12/05/16 08:00 01/04/17 08:59 12/10/16 08:17 100 MG Aspirin (Ecotrin Tab) 81 mg DAILY PO 12/05/16 08:00 01/04/17 08:59 12/10/16 08:17 81 MG Calcium Acetate (Phoslo Cap) 2,001 mg TIDM PO 12/04/16 18:00 01/03/17 17:59 12/10/16 08:17 2,001 MG Gabapentin (Neurontin Cap) 100 mg QAM PO 12/05/16 08:00 01/04/17 08:59 12/10/16 08:17 100 MG Insulin Aspart (novoLOG ASPART) AC SC 12/05/16 06:30 01/04/17 07:59 12/10/16 08:25 10 UNITS Polyethylene (Miralax Powder Packet) 17 gm QAM PO 12/05/16 08:00 01/04/17 08:59 12/10/16 08:16 17 GM Simvastatin (Zocor Tab) 40 mg QPM PO 12/04/16 21:00 01/03/17 20:59 12/09/16 20:44 40 MG Warfarin Sodium (Coumadin Tab) 5 mg HS PO 12/04/16 21:00 01/03/17 20:59 12/09/16 20:44 5 MG Non-Formulary Medication (Cinacalcet (Sensipar)) 60 mg DAILY PO 12/05/16 08:00 01/04/17 08:59 Future Hold Calcium Acetate (Phoslo Cap) 667 mg UD PRN PO 12/04/16 17:15 01/03/17 17:14 12/09/16 20:44 667 MG Glucose (Glucose 40% Gel) 15-30 GRAMS 15 GRAMS... UD PRN PO 12/04/16 17:30 01/03/17 17:29 Glucose (Glucose Chew Tab) 4-8 Tablets 4 Tabl... UD PRN PO 12/04/16 17:30 01/03/17 17:29 Dextrose (Dextrose 50% 50ML Syringe) 25-50ML OF 50% DW IV FOR... UD PRN IV 12/04/16 17:30 01/03/17 17:29 Glucagon (Glucagon Inj) 1 mg UD PRN SQ 12/04/16 17:30 01/03/17 17:29 Acetaminophen (Tylenol Tab) 650 mg Q4H PRN PO 12/04/16 17:45 01/03/17 17:44 12/10/16 08:23 650 MG Ondansetron HCl (Zofran Inj) 4 mg Q6H PRN IV 12/04/16 17:45 01/03/17 17:44 Heparin Sodium (Porcine) (Heparin Sq 5000 Unit/0.5ml) 5,000 unit Q12 SQ 12/04/16 21:00 01/03/17 20:59 12/10/16 10:04 5,000 UNIT Miscellaneous Information (Pending Order) 1 ea DAILY@10 N/A 12/05/16 10:00 01/04/17 09:59 12/10/16 10:01 1 EA Nystatin (Mycostatin Powder) 1 appln BID PRN EXT 12/05/16 13:30 01/04/17 13:29 Insulin Glargine (Toujeo Solostar) 45 unit QAM SC 12/06/16 08:00 01/05/17 07:59 12/10/16 08:24 45 UNIT Epoetin Ramón (Procrit Inj) 10,000 units MoWeFr@0700 IV. 12/09/16 07:00 01/08/17 06:59 12/09/16 14:33 10,000 UNITS Impression (1) ESRD (end stage renal disease) on dialysis Mr. Corky Cabrera is a 71-year-old male with ESRD on HD admitted with weakness and knee pain. Recommendations ESRD: -- HD MWF. -- Typical treatment 4.5 hrs, Opti 200, Qb 450, Qd 800, 2K/2 Ca Anemia: -- [place] [address] QHD -- 2 u PRBC tx 12/09/16 CKD/MBD: -- [facility]s QA Dispo: Plan discharge post HD on Monday
[2016-12-10 15:45] VITALS: BP 132/65; PULSE 60; TEMP 36.5; O2SAT 100
--- NOTE | 2016-12-10 16:49 | Hospitalist Progress Note ---
Hospitalist Progress Note Date of Service Dec 10, 2016. Subjective Pt evaluation today including: conversation w/ patient, physical exam, chart review, lab review, review of studies, review of inpatient medication list Patient had no acute issues overnight Constitutional: No fever Eyes: No worsening of vision ENT: No hearing loss Respiratory: No cough, No shortness of breath Cardiovascular: No chest pain Abdomen: No constipation, No nausea, No pain, No vomiting Musculoskeletal: No joint pain Male : No dysuria Neurologic: No memory loss Psychiatric: No depression symptoms Heme: No see HPI Skin: No itch, No rash Medications Current Inpatient Medications Medications (Trade) Dose Ordered Sig/Katiuska Route Start Time Stop Time Status Last Admin Dose Admin Allopurinol (Zyloprim Tab) 100 mg DAILY PO 12/05/16 08:00 01/04/17 08:59 12/10/16 08:17 100 MG Aspirin (Ecotrin Tab) 81 mg DAILY PO 12/05/16 08:00 01/04/17 08:59 12/10/16 08:17 81 MG Calcium Acetate (Phoslo Cap) 2,001 mg TIDM PO 12/04/16 18:00 01/03/17 17:59 12/10/16 12:22 2,001 MG Gabapentin (Neurontin Cap) 100 mg QAM PO 12/05/16 08:00 01/04/17 08:59 12/10/16 08:17 100 MG Insulin Aspart (novoLOG ASPART) AC SC 12/05/16 06:30 01/04/17 07:59 12/10/16 12:32 10 UNITS Polyethylene (Miralax Powder Packet) 17 gm QAM PO 12/05/16 08:00 01/04/17 08:59 12/10/16 08:16 17 GM Simvastatin (Zocor Tab) 40 mg QPM PO 12/04/16 21:00 01/03/17 20:59 12/09/16 20:44 40 MG Warfarin Sodium (Coumadin Tab) 5 mg HS PO 12/04/16 21:00 01/03/17 20:59 12/09/16 20:44 5 MG Non-Formulary Medication (Cinacalcet (Sensipar)) 60 mg DAILY PO 12/05/16 08:00 01/04/17 08:59 Future Hold Calcium Acetate (Phoslo Cap) 667 mg UD PRN PO 12/04/16 17:15 01/03/17 17:14 12/09/16 20:44 667 MG Glucose (Glucose 40% Gel) 15-30 GRAMS 15 GRAMS... UD PRN PO 12/04/16 17:30 01/03/17 17:29 Glucose (Glucose Chew Tab) 4-8 Tablets 4 Tabl... UD PRN PO 12/04/16 17:30 01/03/17 17:29 Dextrose (Dextrose 50% 50ML Syringe) 25-50ML OF 50% DW IV FOR... UD PRN IV 12/04/16 17:30 01/03/17 17:29 Glucagon (Glucagon Inj) 1 mg UD PRN SQ 12/04/16 17:30 01/03/17 17:29 Acetaminophen (Tylenol Tab) 650 mg Q4H PRN PO 12/04/16 17:45 01/03/17 17:44 12/10/16 08:23 650 MG Ondansetron HCl (Zofran Inj) 4 mg Q6H PRN IV 12/04/16 17:45 01/03/17 17:44 Heparin Sodium (Porcine) (Heparin Sq 5000 Unit/0.5ml) 5,000 unit Q12 SQ 12/04/16 21:00 01/03/17 20:59 12/10/16 10:04 5,000 UNIT Miscellaneous Information (Pending Order) 1 ea DAILY@10 N/A 12/05/16 10:00 01/04/17 09:59 12/10/16 10:01 1 EA Nystatin (Mycostatin Powder) 1 appln BID PRN EXT 12/05/16 13:30 01/04/17 13:29 Insulin Glargine (Toujeo Solostar) 45 unit QAM SC 12/06/16 08:00 01/05/17 07:59 12/10/16 08:24 45 UNIT Epoetin Ramón (Procrit Inj) 10,000 units MoWeFr@0700 IV. 12/09/16 07:00 01/08/17 06:59 12/09/16 14:33 10,000 UNITS Objective Vital Signs Date Time Temp Pulse Resp B/P Pulse Ox O2 Delivery O2 Flow Rate FiO2 12/10/16 15:45 36.5 60 20 132/65 100 Nasal Cannula 3.0 12/10/16 08:17 36.5 63 18 108/63 100 Nasal Cannula 4.0 12/10/16 07:50 100 Nasal Cannula 4.0 12/10/16 00:00 95 Nasal Cannula 4.0 Physical Exam General Appearance: WD/WN, no apparent distress, + obese Eyes: normal inspection ENT: normal ENT inspection Neck: supple, no adenopathy Respiratory/Chest: chest non-tender, lungs clear, + decreased breath sounds Cardiovascular: regular rate, rhythm, no edema Abdomen: normal bowel sounds, non tender, soft Extremities: normal range of motion Neurologic/Psychiatric: 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 claim representative II-XII nml as tested, no motor/sensory deficits, alert, oriented x 3 Laboratory Results Last 24 Hours Test 12/09/16 17:29 12/09/16 20:20 Bedside Glucose 143 mg/dl 129 mg/dl Assessment and Plan Patient is a 71 y.o.M who presented to [facility] with fall and weakness Weakness - suspect 2/2 to deconditioning - Pt/OT - going to [facility] for further rehab Mechanical Fall - PT/OT Hypotension - patient SBP run in the low 90's from previous admissions -asymptomatic - at baseline DMII - continue home medication ESRD - currently euvolemic - appreciate nephrology input - HD MWF Chronic Hypoxic Respiratory failure - currently at baseline 2-3 liters h/o PVD - cont simvastatin , ASA and coumadin Diastolic CHF - currently euvolemic - blood pressure control/daily weights JORJE - on nocturnal CPAP SSS with h/o PPM - noted Morbid obesity -nutrition consulted Disposition-discharge to [facility] on Monday .
[2016-12-10] MEDS: CALCIUM ACETATE 667MG GELCAP PO PRN ×2 (19:13→20:45)
[2016-12-10] MEDS: SIMVASTATIN 40 MG TAB PO SCH (20:45)
[2016-12-10] MEDS: WARFARIN SOD 5 MG TAB PO SCH (20:45)
[2016-12-10 23:15] VITALS: BP 107/64; PULSE 67; TEMP 36.4; O2SAT 99
[2016-12-11 05:56] LABS: HEMATOCRIT 32.2 % (42-52); MEAN CORPUSCULAR HEMOGLOBIN 28.5 pg (25-34); MEAN CORPUSCULAR HGB CONC 31.4 g/dl (32-36); MEAN PLATELET VOLUME 9.4 fL (7.4-10.4); PLATELET COUNT 315 K/uL (130-400); RED BLOOD COUNT 3.54 M/uL (4.7-6.1); WHITE BLOOD COUNT 7.69 K/uL (4.8-10.8)
[2016-12-11 06:04] LABS: INR 1.3 (0.9-1.1); PROTHROMBIN TIME (PATIENT) 14.2 SECONDS (9.0-12.0)
[2016-12-11 06:39] LABS: BUN/CREATININE RATIO 10.6 (10-20); CALCIUM 9.1 mg/dl (8.5-10.1); CREATININE 9.3 mg/dl (0.60-1.40); POTASSIUM 5.8 mmol/L (3.5-5.1)
[2016-12-11 07:45] VITALS: O2SAT 99
[2016-12-11] MEDS: GABAPENTIN 100 MG CAP PO SCH (08:07)
[2016-12-11] MEDS: ASPIRIN 81 MG ECTAB PO SCH (08:07)
[2016-12-11] MEDS: CALCIUM ACETATE 667MG GELCAP PO SCH ×3 (08:07→17:15)
[2016-12-11] MEDS: POLYETHYLENE (MIRALAX) 17 GM PACK PO SCH (08:07)
[2016-12-11] MEDS: INSULIN ASPART 100 UNITS/ML 3 ML PEN SC SCH ×3 (08:24→16:30)
[2016-12-11] MEDS: INSULIN GLARGINE 300 UNITS/ML INJ SC SCH (08:25)
[2016-12-11] MEDS: ALLOPURINOL 100 MG TAB PO SCH (08:55)
[2016-12-11] MEDS: HEPARIN SOD 5000 UNIT/0.5 ML CARP SQ SCH ×2 (08:56→21:32)
[2016-12-11 08:58] VITALS: BP 110/66; PULSE 59; TEMP 36.7; O2SAT 99
--- NOTE | 2016-12-11 11:13 | Nephrology Progress Note ---
Nephrology Progress Note Date of Service Dec 11, 2016. Chief Complaint ESRD Subjective No acute events overnight. No complaints this morning. Denies shortness of breath. Appetite good. Remains weak. Denies pain. Review of Systems A complete review of systems was performed. Pertinent positives are noted above. All other systems are negative. Vital Signs Last 8 Hrs Date Time Temp Pulse Resp B/P Pulse Ox O2 Delivery O2 Flow Rate FiO2 12/11/16 08:58 36.7 59 18 110/66 99 Nasal Cannula 4.0 12/11/16 07:45 99 Nasal Cannula 4.0 I & O 24-Hour Column 12/11/16 07:59 Intake Total 375 ml Balance 375 ml Last Recorded Weight Weight (Kilograms): 149.300 Physical Exam General Appearance: no apparent distress, + obese Head: normocephalic, atraumatic Eyes: normal inspection, sclerae normal ENT: normal ENT inspection, pharynx normal Neck: supple, no JVD Respiratory/Chest: lungs clear, no respiratory distress, no accessory muscle use Cardiovascular: regular rate, rhythm, + systolic murmur Abdomen/GI: non tender, soft Extremities/Musculoskelatal: normal inspection, + pedal edema, + pertinent finding (AVF with thrill and bruit) Neurologic/Psych: alert, oriented x 3 Family History Patient reports no known family medical history. Social History Smoking Status: Never smoker Drug Use: none Marital Status: Housing Status: lives with family Occupation: retired Laboratory Results Past 24 Hours 12/11/16 05:19 12/11/16 05:19 Test 12/10/16 11:42 12/10/16 16:39 12/11/16 05:19 12/11/16 08:06 Bedside Glucose 159 mg/dl (70-99) 105 mg/dl (70-99) 130 mg/dl (70-99) Red Blood Count 3.54 M/uL (4.7-6.1) Mean Corpuscular Volume 91.0 fL (80-100) Mean Corpuscular Hemoglobin 28.5 pg (25-34) Mean Corpuscular Hemoglobin Concent 31.4 g/dl (32-36) RDW Standard Deviation 55.7 fL (36.4-46.3) RDW Coefficient of Variation 17.0 % (11.5-14.5) Mean Platelet Volume 9.4 fL (7.4-10.4) Prothrombin Time 14.2 SECONDS (9.0-12.0) Prothromb Time International Ratio 1.3 (0.9-1.1) Anion Gap 13.0 mmol/L (3-11) Est Creatinine Clear Calc Drug Dose 10.2 ml/min Estimated GFR () 5.9 Estimated GFR (Non- 5.1 BUN/Creatinine Ratio 10.6 (10-20) Calcium Level 9.1 mg/dl (8.5-10.1) Allergies Coded Allergies: No Known Allergies (Verified , 12/04/16) Medications Current Inpatient Medications Medications (Trade) Dose Ordered Sig/Katiuska Route Start Time Stop Time Status Last Admin Dose Admin Allopurinol (Zyloprim Tab) 100 mg DAILY PO 12/05/16 08:00 01/04/17 08:59 12/11/16 08:55 100 MG Aspirin (Ecotrin Tab) 81 mg DAILY PO 12/05/16 08:00 01/04/17 08:59 12/11/16 08:07 81 MG Calcium Acetate (Phoslo Cap) 2,001 mg TIDM PO 12/04/16 18:00 01/03/17 17:59 12/11/16 08:07 2,001 MG Gabapentin (Neurontin Cap) 100 mg QAM PO 12/05/16 08:00 01/04/17 08:59 12/11/16 08:07 100 MG Insulin Aspart (novoLOG ASPART) AC SC 12/05/16 06:30 01/04/17 07:59 12/11/16 08:24 11 UNITS Polyethylene (Miralax Powder Packet) 17 gm QAM PO 12/05/16 08:00 01/04/17 08:59 12/11/16 08:07 17 GM Simvastatin (Zocor Tab) 40 mg QPM PO 12/04/16 21:00 01/03/17 20:59 12/10/16 20:45 40 MG Warfarin Sodium (Coumadin Tab) 5 mg HS PO 12/04/16 21:00 01/03/17 20:59 12/10/16 20:45 5 MG Non-Formulary Medication (Cinacalcet (Sensipar)) 60 mg DAILY PO 12/05/16 08:00 01/04/17 08:59 Future Hold Calcium Acetate (Phoslo Cap) 667 mg UD PRN PO 12/04/16 17:15 01/03/17 17:14 12/10/16 20:45 667 MG Glucose (Glucose 40% Gel) 15-30 GRAMS 15 GRAMS... UD PRN PO 12/04/16 17:30 01/03/17 17:29 Glucose (Glucose Chew Tab) 4-8 Tablets 4 Tabl... UD PRN PO 12/04/16 17:30 01/03/17 17:29 Dextrose (Dextrose 50% 50ML Syringe) 25-50ML OF 50% DW IV FOR... UD PRN IV 12/04/16 17:30 01/03/17 17:29 Glucagon (Glucagon Inj) 1 mg UD PRN SQ 12/04/16 17:30 01/03/17 17:29 Acetaminophen (Tylenol Tab) 650 mg Q4H PRN PO 12/04/16 17:45 01/03/17 17:44 12/10/16 08:23 650 MG Ondansetron HCl (Zofran Inj) 4 mg Q6H PRN IV 12/04/16 17:45 01/03/17 17:44 Heparin Sodium (Porcine) (Heparin Sq 5000 Unit/0.5ml) 5,000 unit Q12 SQ 12/04/16 21:00 01/03/17 20:59 12/11/16 08:56 5,000 UNIT Miscellaneous Information (Pending Order) 1 ea DAILY@10 N/A 12/05/16 10:00 01/04/17 09:59 12/11/16 09:11 1 EA Nystatin (Mycostatin Powder) 1 appln BID PRN EXT 12/05/16 13:30 01/04/17 13:29 Insulin Glargine (Toujeo Solostar) 45 unit QAM SC 12/06/16 08:00 01/05/17 07:59 12/11/16 08:25 45 UNIT Epoetin Ramón (Procrit Inj) 10,000 units MoWeFr@0700 IV. 12/09/16 07:00 01/08/17 06:59 12/09/16 14:33 10,000 UNITS Impression (1) ESRD (end stage renal disease) on dialysis Mr. Corky Cabrera is a 71-year-old male with ESRD on HD admitted with weakness and knee pain. Recommendations ESRD: -- HD MWF -- 4.5 hrs, Opti 200, Qb 450, Qd 800, 2K/2 Ca Anemia: -- Procrit [id number] with HD tomorrow -- 2 u PRBC tx 12/09/16 CKD/MBD: -- [facility] Dispo: Plan discharge post HD tomorrow
[2016-12-11] MEDS ORDERED: NURSING VERBAL MED ORDER ONE (14:45)
[2016-12-11] MEDS ORDERED: LOPERAMIDE HCL 2 MG CAP PO PRN (14:45)
[2016-12-11 15:00] VITALS: BP 120/67; PULSE 67; TEMP 36.5; O2SAT 100
--- NOTE | 2016-12-11 15:36 | Hospitalist Progress Note ---
Hospitalist Progress Note Date of Service Dec 11, 2016. Subjective Pt evaluation today including: conversation w/ patient, physical exam, chart review, lab review, review of studies, review of inpatient medication list Patient has no acute issues overnight Constitutional: No fever Eyes: No worsening of vision ENT: No hearing loss Respiratory: No cough, No shortness of breath Cardiovascular: No chest pain Abdomen: No constipation, No pain, No vomiting Male : No dysuria Neurologic: No memory loss Psychiatric: No depression symptoms Heme: No abnormal bleeding/bruising Endo: No fatigue Skin: No itch, No rash Medications Current Inpatient Medications Medications (Trade) Dose Ordered Sig/Katiuska Route Start Time Stop Time Status Last Admin Dose Admin Allopurinol (Zyloprim Tab) 100 mg DAILY PO 12/05/16 08:00 01/04/17 08:59 12/11/16 08:55 100 MG Aspirin (Ecotrin Tab) 81 mg DAILY PO 12/05/16 08:00 01/04/17 08:59 12/11/16 08:07 81 MG Calcium Acetate (Phoslo Cap) 2,001 mg TIDM PO 12/04/16 18:00 01/03/17 17:59 12/11/16 12:20 2,001 MG Gabapentin (Neurontin Cap) 100 mg QAM PO 12/05/16 08:00 01/04/17 08:59 12/11/16 08:07 100 MG Insulin Aspart (novoLOG ASPART) AC SC 12/05/16 06:30 01/04/17 07:59 12/11/16 12:27 11 UNITS Polyethylene (Miralax Powder Packet) 17 gm QAM PO 12/05/16 08:00 01/04/17 08:59 12/11/16 08:07 17 GM Simvastatin (Zocor Tab) 40 mg QPM PO 12/04/16 21:00 01/03/17 20:59 12/10/16 20:45 40 MG Warfarin Sodium (Coumadin Tab) 5 mg HS PO 12/04/16 21:00 01/03/17 20:59 12/10/16 20:45 5 MG Non-Formulary Medication (Cinacalcet (Sensipar)) 60 mg DAILY PO 12/05/16 08:00 01/04/17 08:59 Future Hold Calcium Acetate (Phoslo Cap) 667 mg UD PRN PO 12/04/16 17:15 01/03/17 17:14 12/10/16 20:45 667 MG Glucose (Glucose 40% Gel) 15-30 GRAMS 15 GRAMS... UD PRN PO 12/04/16 17:30 01/03/17 17:29 Glucose (Glucose Chew Tab) 4-8 Tablets 4 Tabl... UD PRN PO 12/04/16 17:30 01/03/17 17:29 Dextrose (Dextrose 50% 50ML Syringe) 25-50ML OF 50% DW IV FOR... UD PRN IV 12/04/16 17:30 01/03/17 17:29 Glucagon (Glucagon Inj) 1 mg UD PRN SQ 12/04/16 17:30 01/03/17 17:29 Acetaminophen (Tylenol Tab) 650 mg Q4H PRN PO 12/04/16 17:45 01/03/17 17:44 12/10/16 08:23 650 MG Ondansetron HCl (Zofran Inj) 4 mg Q6H PRN IV 12/04/16 17:45 01/03/17 17:44 Heparin Sodium (Porcine) (Heparin Sq 5000 Unit/0.5ml) 5,000 unit Q12 SQ 12/04/16 21:00 01/03/17 20:59 12/11/16 08:56 5,000 UNIT Miscellaneous Information (Pending Order) 1 ea DAILY@10 N/A 12/05/16 10:00 01/04/17 09:59 12/11/16 09:11 1 EA Nystatin (Mycostatin Powder) 1 appln BID PRN EXT 12/05/16 13:30 01/04/17 13:29 Insulin Glargine (Toujeo Solostar) 45 unit QAM SC 12/06/16 08:00 01/05/17 07:59 12/11/16 08:25 45 UNIT Epoetin Ramón (Procrit Inj) 10,000 units MoWeFr@0700 IV. 12/09/16 07:00 01/08/17 06:59 12/09/16 14:33 10,000 UNITS Heparin Sodium (Porcine) (Heparin Iv Bolus) 2,000 unit TODAY@0900 IV 12/12/16 09:00 12/12/16 16:00 Heparin Sodium (Porcine) (Heparin Iv Bolus) 1,000 unit Q1H IV 12/12/16 10:00 12/12/16 12:01 Loperamide HCl (Imodium Cap) 2 mg Q6H PRN PO 12/11/16 14:45 01/10/17 14:44 12/11/16 14:50 2 MG Objective Vital Signs Date Time Temp Pulse Resp B/P Pulse Ox O2 Delivery O2 Flow Rate FiO2 12/11/16 08:58 36.7 59 18 110/66 99 Nasal Cannula 4.0 12/11/16 07:45 99 Nasal Cannula 4.0 12/11/16 00:00 Nasal Cannula 4.0 12/10/16 23:15 36.4 67 18 107/64 99 Nasal Cannula 4.0 12/10/16 17:00 Nasal Cannula 4.0 12/10/16 15:45 36.5 60 20 132/65 100 Nasal Cannula 3.0 Physical Exam General Appearance: WD/WN, no apparent distress Eyes: normal inspection ENT: normal ENT inspection Neck: supple Respiratory/Chest: chest non-tender, lungs clear Cardiovascular: regular rate, rhythm, no edema Abdomen: normal bowel sounds, non tender, soft Extremities: normal range of motion, non-tender 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, no motor/sensory deficits, alert, oriented x 3 Skin: normal color, warm/dry, no rash Lymphatic: no adenopathy Laboratory Results Last 24 Hours Test 12/10/16 16:39 12/10/16 20:29 12/11/16 05:19 12/11/16 08:06 Bedside Glucose 105 mg/dl 204 mg/dl 130 mg/dl White Blood Count 7.69 K/uL Red Blood Count 3.54 M/uL Hemoglobin 10.1 g/dL Hematocrit 32.2 % Mean Corpuscular Volume 91.0 fL Mean Corpuscular Hemoglobin 28.5 pg Mean Corpuscular Hemoglobin Concent 31.4 g/dl RDW Standard Deviation 55.7 fL RDW Coefficient of Variation 17.0 % Platelet Count 315 K/uL Mean Platelet Volume 9.4 fL Prothrombin Time 14.2 SECONDS Prothromb Time International Ratio 1.3 Sodium Level 136 mmol/L Potassium Level 5.8 mmol/L Chloride Level 98 mmol/L Carbon Dioxide Level 25 mmol/L Anion Gap 13.0 mmol/L Blood Urea Nitrogen 99 mg/dl Creatinine 9.30 mg/dl Est Creatinine Clear Calc Drug Dose 10.2 ml/min Estimated GFR () 5.9 Estimated GFR (Non- 5.1 BUN/Creatinine Ratio 10.6 Random Glucose 122 mg/dl Calcium Level 9.1 mg/dl Test 12/11/16 12:08 Bedside Glucose 127 mg/dl Assessment and Plan Patient is a 71 y.o.M who presented to [facility] with fall and weakness Weakness - suspect 2/2 to deconditioning - Pt/OT - going to [facility] for further rehab tomorrow Mechanical Fall - PT/OT Hypotension - patient SBP run in the low 90's from previous admissions -asymptomatic - at baseline DMII - continue home medication ESRD - currently euvolemic - appreciate nephrology input - HD MWF Chronic Hypoxic Respiratory failure - currently at baseline 2-3 liters h/o PVD - cont simvastatin , ASA and coumadin Diastolic CHF - currently euvolemic - blood pressure control/daily weights JORJE - on nocturnal CPAP SSS with h/o PPM - noted Morbid obesity -nutrition consulted Disposition-discharge to [facility] tommorrow .
[2016-12-11] MEDS: CALCIUM ACETATE 667MG GELCAP PO PRN (19:56)
[2016-12-11] MEDS: WARFARIN SOD 5 MG TAB PO SCH (21:21)
[2016-12-11] MEDS: SIMVASTATIN 40 MG TAB PO SCH (21:21)
[2016-12-12] VITALS (22 sets, daily range): BP systolic 77–121; BP diastolic 42–66; PULSE 56–79; TEMP 36.5–37.1; O2SAT 94–99
[2016-12-12] MEDS: GABAPENTIN 100 MG CAP PO SCH (07:39)
[2016-12-12] MEDS: POLYETHYLENE (MIRALAX) 17 GM PACK PO SCH (07:39)
[2016-12-12] MEDS: ASPIRIN 81 MG ECTAB PO SCH (07:39)
[2016-12-12] MEDS: ALLOPURINOL 100 MG TAB PO SCH (07:39)
[2016-12-12] MEDS: CALCIUM ACETATE 667MG GELCAP PO SCH ×2 (07:39→14:10)
[2016-12-12] MEDS: INSULIN ASPART 100 UNITS/ML 3 ML PEN SC SCH ×2 (07:46→14:11)
[2016-12-12] MEDS: INSULIN GLARGINE 300 UNITS/ML INJ SC SCH (07:47)
--- NOTE | 2016-12-12 08:47 | Discharge Summary ---
Discharge Summary Date of Service Dec 12, 2016. Discharge Summary Admission Date: Dec 04, 2016 at 17:45 Discharge Date: Dec 12, 2016 Discharge Disposition: [facility] facility Principal Diagnosis: esrd wt ddeconditioning Immunizations: Have You Had Influenza Vaccine: Unknown History of Tetanus Vaccine?: Unknown History of Pneumococcal: Unknown History of Hepatitis B Vaccine: Unknown Consultations: sabrina frausto for dialysis Medication Reconciliation Continued Medications: Allopurinol (Zyloprim *) 100 Mg Tab 100 MG PO DAILY, 0 Refills Aspirin (Aspirin Ec) 81 Mg Tab 81 MG PO DAILY Calcium Acetate (Phoslo 667 Mg) 667 Mg Cap 2001 MG PO TIDM, 0 Refills take 3 caps with each meal Calcium Acetate (Phoslo 667 Mg) 667 Mg Cap 1-2 CAP PO UD PRN for WITH SNACKS Cinacalcet (Sensipar) 30 Mg Tab 60 MG PO DAILY WITH EVENING MEAL Gabapentin (Neurontin) 100 Mg Cap 1 CAP PO QD for 30 Days, #30 CAP 2 Refills Insulin Aspart (Novolog Flexpen) 100 Units/Ml Inj 0 UNITS SC AC, #1 goal range: 125-150. use correction factor of 15 use carbohydrate ratio of 1 unit of insulin for every 5 grams of carbohydrates consumed. Insulin Glargine (Toujeo Solostar) 300 Unit/Ml Inj 45 UNITS SC QD Oxygen (Oxygen) Gas 4 LITERS NA CONTINOUS Polyethylene Glycol 3350 (Miralax) 1 Pow Pow 174 GM PO QAM Simvastatin (Zocor) 40 Mg Tab 40 MG PO QPM Warfarin Sodium (Coumadin) 5 Mg Tab 5 MG PO HS [vitamin with zinc] () 1 CAP PO QD Discharge Exam Review of Systems: Constitutional: + weakness, No chills, No fever Respiratory: No cough, No sputum Cardiovascular: No chest pain, No edema Abdomen: No nausea, No pain, No vomiting Musculoskeletal: No joint pain, No muscle pain Genitourinary - Male: No dysuria, No hematuria Physical Exam: General Appearance: WD/WN, + mild distress Neck: supple, no JVD Respiratory/Chest: chest non-tender, lungs clear, normal breath sounds Cardiovascular: regular rate, rhythm, no murmur Abdomen / GI: normal bowel sounds, non tender, soft Neurologic/Psychiatric: alert, oriented x 3 Hospital Course Patient is a 71 y.o.M who presented to [facility] with fall and weakness, is a chronic dialysis patient and could not help with assistance to bathroom which lead to fall, after evaluation, no source of weakness could be found outside of his chronic disease and deconditioning Weakness [facility] for further rehab tomorrow Hypotension has been low at times seems to have baseline in the 90 mmHg systolic DMII stable on lantus and ssi as per home medication ESRD HD MWF Chronic Hypoxic Respiratory failure secondary to chronic Diastolic HF - currently at baseline 2-3 liters also JORJE on nocturnal CPAP Cardiovascular risk reduction simvastatin , ASA and coumadin SSS with h/o PPM has had afib in past is currently subtherapeutic on coumadin, will need this followed and adjusted Total Time Spent: Greater than 30 minutes This includes examination of the patient, discharge planning, medication reconciliation, and communication with other providers. Discharge Instructions Please refer to the electronic Patient Visit Report (Discharge Instructions) for additional information.
--- NOTE | 2016-12-12 08:47 | Discharge Instructions ---
Discharge Instructions Admission Reason for Admission: Hypotension Discharge Discharge Diagnosis / Problem: Ambulatory dysfunction, weakness and fall Discharge Goals Goal(s): Diagnostic testing Activity Recommendations Activity Level: Assistance Required Therapies: Physical Therapy, Occupational Therapy . Additional Information Patient informed of condition: Yes Advance Directives: Yes DNR: No Level of Care: Skilled Communicable Disease: No Prognosis: Stable Juan Catheter: No Instructions / Follow-Up Instructions / Follow-Up Patient is a 71 y.o.M who presented to [facility] with fall and weakness, is a chronic dialysis patient and could not help with assistance to bathroom which lead to fall, after evaluation, no source of weakness could be found outside of his chronic disease and deconditioning Weakness [facility] for further rehab tomorrow Hypotension has been low at times seems to have baseline in the 90 mmHg systolic DMII stable on lantus and ssi as per home medication ESRD HD MWF Chronic Hypoxic Respiratory failure secondary to chronic Diastolic HF - currently at baseline 2-3 liters also JORJE on nocturnal CPAP Cardiovascular risk reduction simvastatin , ASA and coumadin SSS with h/o PPM has had afib in past is currently subtherapeutic on coumadin, will need this followed and adjusted Current Hospital Diet Patient's current hospital diet: Renal Diet, Diabetes Type 2 Diet Discharge Diet Recommended Diet: Renal Diet Pending Studies Studies pending at discharge: no Laboratory Results Hemoglobin A1c Test 12/05/16 06:04 Range/Units Estimated Average Glucose 126 mg/dl Hemoglobin A1c 6.0 H 4.5-5.6 % Medical Emergencies . Who to Call and When: Medical Emergencies: If at any time you feel your situation is an emergency, please call 911 immediately. . Non-Emergent Contact Non-Emergency issues call your: Primary Care Provider, Boiler Technician (to continue dialysis) Call Non-Emergent contact if: temperature is above 101 . . "Provider Documentation" section prepared by Jacques Louis. Core Measure Problem Core Measures: None
[2016-12-12] MEDS ORDERED: HEPARIN SOD (PORCINE) 1000 UNIT/ML 10 ML VIAL IV SCH ×2 (09:00→10:00)
--- NOTE | 2016-12-12 10:43 | PROGRESS NOTE ---
DATE: 12/12/2016 SUBJECTIVE: Mr. Cabrera says that he is feeling "okay" this morning. He denies having any chest pain or shortness of breath. He says that his appetite is good and his impression is supported by the fact that he gained about 5 liters in fluid over the past 2 days! Despite that, he has had no increase in his shortness of breath. He does not notice any lower extremity edema. He has no symptoms of uremia and no symptoms of volume overload at the current time. He has not noted any dramatic improvement after his 2 unit blood transfusion that was done on 12/09/2016. OBJECTIVE: GENERAL: On physical exam at the current time he appears somewhat withdrawn and less talkative than usual. (He attributes that to feeling tired.) VITAL SIGNS: His temperature 36.8 degrees centigrade orally. His blood pressure 110/66, his pulse 76 and seemingly regular, respiratory rate is 20, his pulse ox 99% on 3 liters of oxygen via nasal cannula. SKIN: Shows normal skin turgor. He has no obvious rash or infiltrative skin disease other than some changes of seborrheic dermatitis on his face and scalp. He has multiple scars from prior surgical procedures. LYMPHATICS: Show no palpable lymphadenopathy. HEAD: Normal. EYES: Grossly normal. The ocular fundi were not examined. EARS, NOSE, MOUTH AND THROAT: All unremarkable. His oral mucous membranes are moist. NECK: Supple. He has no obvious jugular venous distention, but the exam is limited by his body habitus. I hear no carotid bruits and there is no thyromegaly. CHEST: Clear to auscultation. Diaphragms are elevated related to his body habitus and breath sounds are somewhat diminished at the bases. I hear no wheezes. CARDIAC: Shows distant sounds. His rhythm seems regular. He has a grade 3/6 systolic murmur at the base radiating toward the neck. ABDOMEN: Morbidly obese, it is nontender. There is no organomegaly or mass. EXTREMITIES: Show no cyanosis or clubbing. He has 1-2+ lower extremity edema. There is no calf tenderness or cords. He has degenerative changes involving both knees. NEUROLOGIC: Shows no lateralizing changes. He does seem globally weak and as noted above, seems to be somewhat withdrawn today. LABORATORY DATA: Pertinent laboratory work from yesterday showed a white count of 7690, his hemoglobin was 10.1 up from 8.6 at the time of his transfusion. His hematocrit was 32.2, his platelet count 315,000. His clinical chemistries are limited today to a blood sugar of 121. His prothrombin time yesterday was 1.3. ASSESSMENT: Mr. Cabrera seems to be relatively stable. As noted, he does seem to be a bit more withdrawn today than I am used to seeing him. However, there are no objective findings of anything that would explain that other than fatigue. His weight gain over the weekend was significant (approximately 5 liters). PLAN: We will try to get the 5 liters off him today. Apparently, the plan is for him to go to [facility] today. We will pick him up for routine dialysis treatments at [facility] in [place] on Monday. The staff there is already aware. He will be discharged on his routine medications. Close observation of his prothrombin time needs to be done since he is subtherapeutic at the current time. Generally his prothrombin time has been within the low therapeutic range.
[2016-12-12] MEDS: EPOETIN ALFA 10,000 UNITS/ML VIAL IV. SCH (12:17)
[2016-12-12] MEDS ORDERED: NYSTATIN SUSP 500,000 U/5 ML UDC PO SCH (20:00)
[2017-02-24] MEDS ORDERED: LEVO25TA PO (07:42)
[2017-02-27] MEDS ORDERED: CEPH500C2 PO (14:12)
[2017-03-08] MEDS ORDERED: DXY100 PO (08:54)
[2017-03-08] MEDS ORDERED: AMX500 PO (08:54)
[2017-04-05] MEDS ORDERED: ACET-1311 PO (11:26)
[2017-04-12] MEDS ORDERED: DOXY100C76 PO (07:45)
[2017-04-12] MEDS ORDERED: AMOX500C3 PO (07:45)
[2017-04-12] MEDS ORDERED: POVI10SO38 TOP (16:13)
[2017-04-12] MEDS ORDERED: MULTTAB63 PO (16:13)
[2017-04-12] MEDS ORDERED: BISA10SU38 PR (16:13)
[2017-04-12] MEDS ORDERED: SODIENE PR (16:13)
[2017-04-12] MEDS ORDERED: MOML PO (16:13)
[2017-04-12] MEDS ORDERED: NYSTATIN POWDER TOP (16:14)
[2017-04-13] MEDS ORDERED: OXYC-57 PO ×2 (15:42→15:56)
[2017-05-25] MEDS ORDERED: CEPH500C2 PO (13:07)
[2017-06-09] MEDS ORDERED: GABA1CAP PO (15:15)
[2017-06-09] MEDS ORDERED: DFL100 PO (15:15)
[2017-06-09] MEDS ORDERED: KFL250 PO (15:15)
[2017-06-09] MEDS ORDERED: LVQ250 PO (15:15)
[2017-06-09] MEDS ORDERED: NZRCR TOP (15:30)
== END 2016-12-12 16:33 | DRG 947 ==
LOC: ENRESERVDT → ENRESERVTM → EDBD 14:23 → C.EDB 14:24 → C.MS4W 17:45 → EDBEDREQ 17:55 → C.4E 12-06 10:17
PROVIDERS: ADMIT Internal Medicine; ATTEND Internal Medicine
DX: R53.1 Weakness (principal); N18.6 End stage renal disease; J96.11 Chronic respiratory failure with hypoxia; I50.32 Chronic diastolic (congestive) heart failure; N25.81 Secondary hyperparathyroidism of renal origin; Z68.43 Body mass index [BMI] 50.0-59.9, adult; I13.2 Hypertensive heart and chronic kidney disease with heart failure and with stage 5 chronic kidney disease, or end stage renal disease; I48.91 Unspecified atrial fibrillation; G47.33 Obstructive sleep apnea (adult) (pediatric); E66.01 Morbid (severe) obesity due to excess calories; E11.21 Type 2 diabetes mellitus with diabetic nephropathy; I25.10 Atherosclerotic heart disease of native coronary artery without angina pectoris; E78.5 Hyperlipidemia, unspecified; D63.8 Anemia in other chronic diseases classified elsewhere; W05.0XXA Fall from non-moving wheelchair, initial encounter; X58.XXXA Exposure to other specified factors, initial encounter; I95.9 Hypotension, unspecified; E11.22 Type 2 diabetes mellitus with diabetic chronic kidney disease; R79.1 Abnormal coagulation profile; R26.9 Unspecified abnormalities of gait and mobility; E11.43 Type 2 diabetes mellitus with diabetic autonomic (poly)neuropathy; I27.81 Cor pulmonale (chronic); R53.81 Other malaise; I87.2 Venous insufficiency (chronic) (peripheral); Z99.89 Dependence on other enabling machines and devices; Z86.12 Personal history of poliomyelitis; Z99.2 Dependence on renal dialysis; Z95.0 Presence of cardiac pacemaker; Z95.5 Presence of coronary angioplasty implant and graft; Z79.899 Other long term (current) drug therapy; Z86.79 Personal history of other diseases of the circulatory system; Z99.81 Dependence on supplemental oxygen; Z79.01 Long term (current) use of anticoagulants; Z79.4 Long term (current) use of insulin; Z79.82 Long term (current) use of aspirin; Z85.51 Personal history of malignant neoplasm of bladder

== ENCOUNTER 2017-03-01 07:31 | Inpatient (IN) | payer OTHER, MEDICARE ==
[2017-03-01] VITALS (25 sets, daily range): BP systolic 66–160; BP diastolic 32–97; PULSE 70–114; TEMP 36.8–37.2; O2SAT 95–96; BMI 46.8
[~2017-03-01] VITALS: Ht 177.8 cm; Wt 149.6 kg
[~2017-03-01 07:31] MED LIST changes: +CEPH500C2 PO; +LEVO25TA PO
--- NOTE | 2017-03-01 07:53 | EMERGENCY ROOM VISIT NOTE ---
History Report prepared by Hue: Malka Morales Under the Supervision of: Dr. Miguel Waldron M.D. First contact with patient: 07:41 Chief Complaint: RESPIRATORY PROBLEMS Stated Complaint: BREATHING DIFFCULTY History of Present Illness The patient is a 71 year old male who presents to the Emergency Room with complaints of worsening respiratory problems since last night. The patient has been short of breath for some time but states that last night it became much worse. He denies any chest pain or fevers. He wears 4L of O2 at all times. The patient is a dialysis patient. He is supposed to have dialysis today. He was also supposed to go to the wound clinic this morning for wounds on his lower extremities. The patient has a history of CHF. He did not take his usual medications this morning. Source of History: patient Onset: last night Position: chest (respiratory) Quality: other (shortness of breath) Timing: worsening Associated Symptoms: No chest pain, No fevers Review of Systems All systems have been listed, reviewed, and are negative other than those previously mentioned. Please see Additional Medical History Sheet. 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 Social History Smoking Status: Never Smoker Alcohol Use: none Drug Use: none Marital Status: Housing Status: lives with family Occupation Status: retired Current/Historical Medications Scheduled Allopurinol (Zyloprim), 100 MG PO DAILY Aspirin (Aspirin Ec), 81 MG PO DAILY Calcium Acetate (Phoslo 667 Mg), 2,001 MG PO TIDM Cephalexin Monohydrate (Keflex), 500 MG PO TID Cinacalcet (Sensipar), 60 MG PO DAILY Gabapentin (Neurontin), 1 CAP PO QD Insulin Aspart (Novolog Flexpen), 0 UNITS SC AC Insulin Glargine (Toujeo Solostar), 45 UNITS SC QD Levothyroxine Sodium (Synthroid), 1 TAB PO DAILY Oxygen (Oxygen), 4 LITERS NA CONTINOUS Polyethylene Glycol 3350 (Miralax), 174 GM PO QAM Simvastatin (Zocor), 40 MG PO QPM Warfarin Sodium (Coumadin), 5 MG PO HS [vitamin with zinc], 1 CAP PO QD Scheduled PRN Calcium Acetate (Phoslo 667 Mg), 1-2 CAP PO UD PRN for WITH SNACKS Allergies Coded Allergies: No Known Allergies (Verified , 03/01/17) Physical Exam Vital Signs Date Time Temp Pulse Resp B/P Pulse Ox O2 Delivery O2 Flow Rate FiO2 03/01/17 11:34 82 16 83/46 96 Nasal Cannula 4.0 03/01/17 11:15 96 Nasal Cannula 4.0 03/01/17 10:33 88 03/01/17 09:35 88 22 88/53 03/01/17 08:40 98 16 85/52 98 Nasal Cannula 4.0 03/01/17 08:00 97 Nasal Cannula 4.0 03/01/17 08:00 97 Nasal Cannula 4.0 03/01/17 07:44 99 03/01/17 07:40 36.8 102 24 98/59 100 Room Air Physical Exam GENERAL: Patient awake, alert, oriented x 3. Patient follows commands. Patient does not appear toxic. Patient is adequately hydrated and well- nourished. SKIN: No erythema, pallor, cyanosis or rash HEENT: Normal head, pupils equal, reactive to light and accommodation. LUNGS: Clear to auscultation. No wheezes, no rales, no rhonchi. HEART: Grade 2/6 systolic murmur. No gallops. No rubs ABDOMEN: Obese, soft, non tender. No masses, no rebound, no hepatomegaly or splenomegaly. EXTREMITIES: Fistula right upper arm. Dripping wound from distal end of right index finger, slightly ecchymotic. No signs of trauma. Both legs are edematous and discolored. Ulcers on right leg which are draining. NEUROLOGIC: Cranial nerves II-XII within normal limits. No gross motor sensory function deficits. Medical Decision & Procedures ER Provider Diagnostic Interpretation: Radiology results as stated below per my review and radiologist interpretation: SINGLE VIEW CHEST CLINICAL HISTORY: Dyspnea. FINDINGS: An AP, portable, upright chest radiograph is compared to study dated 12/04/2016. The examination is severely degraded by large body habitus, patient rotation, portable technique. A vascular stent projects over the right upper chest. A single lead cardiac pacemaker is unchanged in position. The heart is enlarged and there is atherosclerotic calcification of the thoracic aorta. There is pulmonary vascular congestion. Trace pleural effusions are suspected. Bibasilar airspace opacities are typical for atelectasis. A calcified granuloma is again seen in the right lower lung. No pneumothorax is identified. The skeletal structures are osteopenic. The bony thorax is grossly intact. IMPRESSION: 1. Cardiomegaly and cardiac pacemaker with evidence of congestive failure. 2. Layering pleural effusions and bibasilar atelectasis. Electronically signed by: Garry Milian M.D. 03/01/2017 8:42 AM Dictated Date/Time: 03/01/2017 8:40 AM Laboratory Results 03/01/17 07:15 Red Blood Count 3.94, Mean Corpuscular Volume 94.7, Mean Corpuscular Hemoglobin 28.2, Mean Corpuscular Hemoglobin Concent 29.8, Mean Platelet Volume 9.8, Neutrophils (%) (Auto) 90.1, Lymphocytes (%) (Auto) 3.5, Monocytes (%) (Auto) 4.4, Eosinophils (%) (Auto) 1.6, Basophils (%) (Auto) 0.2, Neutrophils # (Auto) 11.14, Lymphocytes # (Auto) 0.43, Monocytes # (Auto) 0.55, Eosinophils # (Auto) 0.20, Basophils # (Auto) 0.03 03/01/17 07:15 Test 03/01/17 07:15 03/01/17 08:00 White Blood Count 12.38 K/uL (4.8-10.8) Red Blood Count 3.94 M/uL (4.7-6.1) Hemoglobin 11.1 g/dL (14.0-18.0) Hematocrit 37.3 % (42-52) Mean Corpuscular Volume 94.7 fL (80-100) Mean Corpuscular Hemoglobin 28.2 pg (25-34) Mean Corpuscular Hemoglobin Concent 29.8 g/dl (32-36) Platelet Count 296 K/uL (130-400) Mean Platelet Volume 9.8 fL (7.4-10.4) Neutrophils (%) (Auto) 90.1 % Lymphocytes (%) (Auto) 3.5 % Monocytes (%) (Auto) 4.4 % Eosinophils (%) (Auto) 1.6 % Basophils (%) (Auto) 0.2 % Neutrophils # (Auto) 11.14 K/uL (1.4-6.5) Lymphocytes # (Auto) 0.43 K/uL (1.2-3.4) Monocytes # (Auto) 0.55 K/uL (0.11-0.59) Eosinophils # (Auto) 0.20 K/uL (0-0.5) Basophils # (Auto) 0.03 K/uL (0-0.2) RDW Standard Deviation 64.8 fL (36.4-46.3) RDW Coefficient of Variation 18.8 % (11.5-14.5) Immature Granulocyte % (Auto) 0.2 % Immature Granulocyte # (Auto) 0.03 K/uL (0.00-0.02) Prothrombin Time 25.6 SECONDS (9.0-12.0) Prothromb Time International Ratio 2.3 (0.9-1.1) Activated Partial Thromboplast Time 56.0 SECONDS (21.0-31.0) Partial Thromboplastin Ratio 2.2 Anion Gap 9.0 mmol/L (3-11) Est Creatinine Clear Calc Drug Dose 11.3 ml/min Estimated GFR () 6.4 Estimated GFR (Non- 5.5 BUN/Creatinine Ratio 7.9 (10-20) Calcium Level 8.6 mg/dl (8.5-10.1) Total Bilirubin 0.5 mg/dl (0.2-1) Aspartate Amino Transf (AST/SGOT) 18 U/L (15-37) Alanine Aminotransferase (ALT/SGPT) 28 U/L (12-78) Alkaline Phosphatase 66 U/L (45-117) Total Protein 8.0 gm/dl (6.4-8.2) Albumin 3.5 gm/dl (3.4-5.0) Globulin 4.5 gm/dl (2.5-4.0) Albumin/Globulin Ratio 0.8 (0.9-2) Lactic Acid Level 1.4 mmol/L (0.4-2.0) Laboratory results as stated above per my review. Medications Administered Medications (Trade) Dose Ordered Sig/Kat[place]ka Route Start Time Stop Time Status Last Admin Dose Admin Piperacillin Sod/ Tazobactam Sod (Zosyn Iv) 4.5 gm NOW STAT IV 03/01/17 10:45 03/01/17 10:48 DC 03/01/17 11:55 4.5 GM ECG Indication: SOB/dyspnea Rate (beats per minute): 94 Rhythm: atrial fibrillation Findings: no acute ischemic change, left axis deviation ED Course 0741: Past medical records reviewed. The patient was evaluated in room B6. A complete history and physical examination was performed. 0844: I spoke with Dr. Flaherty the patient's casino floor walker. We discussed the patient's case. 0900: I reevaluated the patient. He is doing well. 1023: Dr. Flaherty will come to the ED to evaluate the patient. 1025: I reassessed the patient at this time. I discussed the results and treatment plan with the patient. I answered all pertaining questions that he had. He expressed understanding and verbalized agreement. 1044: I spoke with Dr. Flaherty in the ED regarding the patient's treatment plan. He felt that the patient should remain in the hospital for further care. 1045: Zosyn 4.5 gm IV 1105: I spoke with Dr. Stacy. We discussed the patients results and treatment plan. The patient will be evaluated by the [facility] for further management. Medical Decision Differential diagnoses includes CHF, pulmonary edema, metabolic disorder, cellulitis, sepsis. Multiple labs, EKG and imaging were obtained. Please see above. The patient does not feel well. He was scheduled to have dialysis today. He is diabetic. The patient has a draining sore on his right index finger. He also has draining ulcers on both legs right greater than left. Patient's white count is slightly elevated. His potassium is 6.2. I discussed care with Dr. Flaherty. The patient was given IV Zosyn after blood cultures were obtained. The patient will be admitted and dialyzed urgently. I did consider giving the patient other potassium lowering interventions but we have elected to wait and perform dialysis. Consults Time Called: 1475 Consulting Physician: Dr. Flaherty Returned Call: [address] Flaherty the patient's casino floor walker. We discussed the patient's case. Additional Consults: Time Called: 1044 Consulted Physician: Dr. Flaherty Returned Call: 1044 Additional Comments: I spoke with Dr. Flaherty in the ED regarding the patient's treatment plan. He felt that the patient should remain in the hospital for further care. Time Called: 1101 Consulted Physician: Dr. Stacy Returned Call: 1105 Additional Comments: I spoke with Dr. Stacy. We discussed the patients results and treatment plan. The patient will be evaluated by the [facility] for further management. Impression Primary Impression: Hyperkalemia Additional Impressions: Leukocytosis Superficial injury of right index finger with infection Ulcers of both lower extremities Scribe Attestation The scribe's documentation has been prepared under my direction and personally reviewed by me in its entirety. I confirm that the note above accurately reflects all work, treatment, procedures, and medical decision making performed by me. Departure Information Dispostion Being Evaluated By Hospitalist Sarthak Lopez M.D. (PCP) Patient Instructions My [facility] Problem Qualifiers Additional Impressions: Leukocytosis Leukocytosis type: unspecified Qualified Codes: D72.829 - Elevated white blood cell count, unspecified Ulcers of both lower extremities Non-pressure ulcer stage: unspecified non-pressure ulcer stage Qualified Codes: L97.919 - Non-pressure chronic ulcer of unspecified part of right lower leg with unspecified severity; L97.929 - Non-pressure chronic ulcer of unspecified part of left lower leg with unspecified severity
[2017-03-01 07:58] LABS: BASO % 0.2 %; BASO ABS # 0.03 K/uL (0-0.2); COMPLETE YES; EOS % 1.6 %; HEMATOCRIT 37.3 % (42-52); IG% 0.2 %; LYMPH % 3.5 %; LYMPH ABS # 0.43 K/uL (1.2-3.4); MEAN CELL VOLUME 94.7 fL (80-100); MEAN CORPUSCULAR HEMOGLOBIN 28.2 pg (25-34); MEAN CORPUSCULAR HGB CONC 29.8 g/dl (32-36); MEAN PLATELET VOLUME 9.8 fL (7.4-10.4); MONO % 4.4 %; NEUT % 90.1 %; PLATELET COUNT 296 K/uL (130-400); RED BLOOD COUNT 3.94 M/uL (4.7-6.1); WHITE BLOOD COUNT 12.38 K/uL (4.8-10.8)
[2017-03-01 08:06] LABS: CALCIUM 8.6 mg/dl (8.5-10.1)
[2017-03-01 08:25] LABS: ALB/GLOB RATIO 0.8 (0.9-2); BUN/CREATININE RATIO 7.9 (10-20); CREATININE 8.7 mg/dl (0.60-1.40); POTASSIUM 6.2 mmol/L (3.5-5.1)
[2017-03-01 08:28] LABS: INR 2.3 (0.9-1.1); PARTIAL THROMBOPLASTIN RATIO 2.2; PROTHROMBIN TIME (PATIENT) 25.6 SECONDS (9.0-12.0)
[2017-03-01] MEDS ORDERED: ALLO100T PO (08:29)
--- NOTE | 2017-03-01 08:43 | DIAGNOSTIC IMAGING REPORT ---
SINGLE VIEW CHEST CLINICAL HISTORY: Dyspnea. FINDINGS: An AP, portable, upright chest radiograph is compared to study dated 12/04/2016. The examination is severely degraded by large body habitus, patient rotation, portable technique. A vascular stent projects over the right upper chest. A single lead cardiac pacemaker is unchanged in position. The heart is enlarged and there is atherosclerotic calcification of the thoracic aorta. There is pulmonary vascular congestion. Trace pleural effusions are suspected. Bibasilar airspace opacities are typical for atelectasis. A calcified granuloma is again seen in the right lower lung. No pneumothorax is identified. The skeletal structures are osteopenic. The bony thorax is grossly intact. IMPRESSION: 1. Cardiomegaly and cardiac pacemaker with evidence of congestive failure. 2. Layering pleural effusions and bibasilar atelectasis. Electronically signed by: Garry Milian M.D. 03/01/2017 8:42 AM Dictated Date/Time: 03/01/2017 8:40 AM
[2017-03-01] MEDS ORDERED: PIPERACILLIN/TAZOBACTAM 4.5 GM/100ML D5W IV STA (10:45)
[2017-03-01] MEDS ORDERED: SODIUM CHLORIDE 0.9% 1000ML 1,000 ML IV PRN (10:54)
--- NOTE | 2017-03-01 11:15 | History and Physical ---
History & Physical Date & Time of Service: March 01, 2017 at 11:10 Chief Complaint: Breathing Diffculty Primary Care Physician: Sarthak Gracia M.D. History of Present Illness Source: patient This is a 71 yo male with PMHx of chronic diastolic CHF, diabetes type 2 with peripheral neuropathy, atrial fibrillation on anticoagulation, ESRD on HD MWF, obstructive sleep apnea, chronically on 4 L O2 and not on CPAP, PVD, and bilateral lower extremity edema with chronic wounds, morbid obesity. The patient presents to the ER with complaint of worsening shortness of breath over the last day and weeping wounds on his bilateral lower extremities and a new lesion on his right pointer finger which started as a blister approximately 3 days ago which has now popped. He notes that his wounds have been chronically treated by wound care as an outpatient on his legs. He denies any type of injury or trauma to the right pointer finger, and cannot remember any sort of inciting event that would've led to a blister. He does admit to having 5 cats at home which he cares for. The patient notes that his breathing has been labored with any exertion and finds it difficult to breathe in. Denies any fevers or sweats but does admit to chills and shakes this morning. He admits to generalized weakness. His blood pressure has been on the low side, 80s over 60s. While at bedside blood pressure was rechecked and was 83/46. He denies any lightheadedness or dizziness. He denies any pain with equal breath, chest pain, abdominal pain, nausea/vomiting/diarrhea/constipation. His last bowel movement was yesterday morning. He lives at home with his although was recently discharged from [facility] approximately one week ago. Here in the ED his white blood count is equal to 12.38 with a left shift, hemoglobin stable at 12.1 creatinine 8.7, potassium 6.2. A 1 view CXR was completed layering pleural effusions and signs of congestive pulmonary edema without any infiltrates or consolidations. Patient has been afebrile. Hypotensive as noted above. Blood cultures have been drawn and started on Zosyn. Nephrology on board for dialysis treatment today. Past Medical/Surgical History Medical Problems: (1) CONGESTIVE HEART FAILURE, chronic diastolic Status: Resolved (2) DIAB W OTH SPEC MANIFEST, TYPE II OR UNSPEC TYPE, NOT UNCNTR Status: Chronic (3) Diabetes Status: Chronic (4) MAL NADE[place] BLADDER-TRIGONE Status: Resolved (5) MORBID OBESITY Status: Chronic (6) Obstructive sleep apnea Status: Chronic (7) Peripheral vascular disease Status: Chronic (8) RENAL FAILURE NOS Status: Chronic Atrial fibrillation on anticoagulation End-stage renal disease on hemodialysis Family History Patient reports no known family medical history. Social History Smoking Status: Former Smoker Smokeless Tobacco Use: No Alcohol Use: none Drug Use: none Marital Status: Housing status: lives with family Occupational Status: retired Immunizations History of Influenza Vaccine: Unknown History of Tetanus Vaccine?: Unknown History of Pneumococcal: Unknown History of Hepatitis B Vaccine: Unknown Multi-Drug Resistant Organisms History of MDRO: No Allergies Coded Allergies: No Known Allergies (Verified , 03/01/17) Home Medications Scheduled Allopurinol (Zyloprim), 100 MG PO DAILY Aspirin (Aspirin Ec), 81 MG PO DAILY Calcium Acetate (Phoslo 667 Mg), 2,001 MG PO TIDM Cephalexin Monohydrate (Keflex), 500 MG PO TID Cinacalcet (Sensipar), 60 MG PO DAILY Gabapentin (Neurontin), 1 CAP PO QD Insulin Aspart (Novolog Flexpen), 0 UNITS SC AC Insulin Glargine (Toujeo Solostar), 45 UNITS SC QD Levothyroxine Sodium (Synthroid), 1 TAB PO DAILY Oxygen (Oxygen), 4 LITERS NA CONTINOUS Polyethylene Glycol 3350 (Miralax), 174 GM PO QAM Simvastatin (Zocor), 40 MG PO QPM Warfarin Sodium (Coumadin), 5 MG PO HS [vitamin with zinc], 1 CAP PO QD Scheduled PRN Calcium Acetate (Phoslo 667 Mg), 1-2 CAP PO UD PRN for WITH SNACKS Review of Systems Constitutional: No fever, sweats, + chills Eyes: No diplopia, no worsening or blurred vision ENT: normal hearing, no trouble swallowing Respiratory: No cough, sputum, +dyspnea at rest and on exertion Cardiovascular: No chest pain, tightness or palpitations Abdomen: No pain, nausea, vomiting, diarrhea or constipation Musculoskeletal: No joint pain, calf pain, + swelling and chronic wound drainage on bilateral legs, + open wound on R pointer finger Neurologic: No weakness, + peripheral sensory deficits up to mid tibial region on bilateral legs, or balance problems Psychiatric: No anxiety or depression Skin: No rash or itch Physical Exam Vital Signs Date Time Temp Pulse Resp B/P Pulse Ox O2 Delivery O2 Flow Rate FiO2 03/01/17 10:33 88 03/01/17 09:35 88 22 88/53 03/01/17 08:40 98 16 85/52 98 Nasal Cannula 4.0 03/01/17 08:00 97 Nasal Cannula 4.0 03/01/17 08:00 97 Nasal Cannula 4.0 03/01/17 07:44 99 03/01/17 07:40 36.8 102 24 98/59 100 Room Air General: awake, alert, sitting up in bedside chair, appears to be in mild distress, fatigued, weak, morbidly obese. Head: Normocephalic, atraumatic ENT: PERRL, EOMI, patient has unkept facial hair, eyes are crusting bilaterally , mucous membranes moist Chest: On 4 L via NC, + crackles bibasilarly, no inspiratory or expiratory wheezing noted. Cardiac: Regular rate and rhythm, + pacemaker click, no murmur, no JVD, normal peripheral pulses, good capillary refill Abdominal: Obese, NABS x 4 quadrants, soft, nontender to palpation, no rebound, guarding or tenderness Extremities: + Right pointer finger with ecchymotic underlying the opened blister over the dorsal aspect, + multiple bilateral lower extremity open weeping wounds with serosanguineous drainage, + chronic venous stasis changes on BLE, 1+ pitting edema BLE, calfs nontender to palpation, chronic onychomycosis Psych: Normal mood and affect Neuro: AAO x 3, strength intact bilaterally and related 02/10, no motor deficits, speech is clear, peripheral sensory deficits in bilateral feet up to mid tibial range Diagnostics Laboratory Results Results Past 24 Hours Test 03/01/17 07:15 03/01/17 08:00 Range/Units White Blood Count 12.38 4.8-10.8 K/uL Red Blood Count 3.94 4.7-6.1 M/uL Hemoglobin 11.1 14.0-18.0 g/dL Hematocrit 37.3 42-52 % Mean Corpuscular Volume 94.7 80-100 fL Mean Corpuscular Hemoglobin 28.2 25-34 pg Mean Corpuscular Hemoglobin Concent 29.8 32-36 g/dl Platelet Count 296 130-400 K/uL Mean Platelet Volume 9.8 7.4-10.4 fL Neutrophils (%) (Auto) 90.1 % Lymphocytes (%) (Auto) 3.5 % Monocytes (%) (Auto) 4.4 % Eosinophils (%) (Auto) 1.6 % Basophils (%) (Auto) 0.2 % Neutrophils # (Auto) 11.14 1.4-6.5 K/uL Lymphocytes # (Auto) 0.43 1.2-3.4 K/uL Monocytes # (Auto) 0.55 0.11-0.59 K/uL Eosinophils # (Auto) 0.20 0-0.5 K/uL Basophils # (Auto) 0.03 0-0.2 K/uL RDW Standard Deviation 64.8 36.4-46.3 fL RDW Coefficient of Variation 18.8 11.5-14.5 % Immature Granulocyte % (Auto) 0.2 % Immature Granulocyte # (Auto) 0.03 0.00-0.02 K/uL Prothrombin Time 25.6 9.0-12.0 SECONDS Prothromb Time International Ratio 2.3 0.9-1.1 Activated Partial Thromboplast Time 56.0 21.0-31.0 SECONDS Partial Thromboplastin Ratio 2.2 Sodium Level 136 136-145 mmol/L Potassium Level 6.2 3.5-5.1 mmol/L Chloride Level 93 98-107 mmol/L Carbon Dioxide Level 34 21-32 mmol/L Anion Gap 9.0 3-11 mmol/L Blood Urea Nitrogen 68 7-18 mg/dl Creatinine 8.70 0.60-1.40 mg/dl Est Creatinine Clear Calc Drug Dose 11.3 ml/min Estimated GFR () 6.4 Estimated GFR (Non- 5.5 BUN/Creatinine Ratio 7.9 10-20 Random Glucose 169 70-99 mg/dl Calcium Level 8.6 8.5-10.1 mg/dl Total Bilirubin 0.5 0.2-1 mg/dl Aspartate Amino Transf (AST/SGOT) 18 15-37 U/L Alanine Aminotransferase (ALT/SGPT) 28 12-78 U/L Alkaline Phosphatase 66 45-117 U/L Total Protein 8.0 6.4-8.2 gm/dl Albumin 3.5 3.4-5.0 gm/dl Globulin 4.5 2.5-4.0 gm/dl Albumin/Globulin Ratio 0.8 0.9-2 Lactic Acid Level 1.4 0.4-2.0 mmol/L Microbiology Results 03/01/17 Blood Culture, Jono Batch Pending 03/01/17 Blood Culture, Jono Batch Pending 03/01/17 Gram Stain, Received Pending 03/01/17 Wound Culture, Received Pending Diagnostic Radiology [~ rep ct add3]] SINGLE VIEW CHEST CLINICAL HISTORY: Dyspnea. FINDINGS: An AP, portable, upright chest radiograph is compared to study dated 12/04/2016. The examination is severely degraded by large body habitus, patient rotation, portable technique. A vascular stent projects over the right upper chest. A single lead cardiac pacemaker is unchanged in position. The heart is enlarged and there is atherosclerotic calcification of the thoracic aorta. There is pulmonary vascular congestion. Trace pleural effusions are suspected. Bibasilar airspace opacities are typical for atelectasis. A calcified granuloma is again seen in the right lower lung. No pneumothorax is identified. The skeletal structures are osteopenic. The bony thorax is grossly intact. IMPRESSION: 1. Cardiomegaly and cardiac pacemaker with evidence of congestive failure. 2. Layering pleural effusions and bibasilar atelectasis. Electronically signed by: Garry Milian M.D. 03/01/2017 8:42 AM Dictated Date/Time: 03/01/2017 8:40 AM The status of this report is Signed. Impression Assessment and Plan This is a 71 yo male with PMHx of chronic diastolic CHF, diabetes type 2 with peripheral neuropathy, atrial fibrillation on anticoagulation, ESRD on HD MWF, obstructive sleep apnea, chronically on 4 L O2 and not on CPAP, PVD, and bilateral lower extremity edema with chronic wounds, morbid obesity. Generalized weakness with Leukocytosis meeting SIRs criteria - Admit to tele - white blood count 12.38 with left shift, patient has been hypotensive in the ER with reported blood pressure in the 140s normally, currently 83/46. The patient appears to be hypervolemic with 1+ pitting edema and pulmonary edema on CXR, patient is scheduled for dialysis this morning so will attempt to remove some of the fluid from there. - Blood cultures 2 drawn - Started the patient on Zosyn, will add on vancomycin for MRSA coverage - checking a MRSA nares swab - PT/OT Acute on chronic diastolic CHF S/p pacemaker insertion - Cont ASA 81 mg and Simvastatin 40 mg daily, pt is not on an antihypertensive regimen. - CXR 1 view showing :Cardiomegaly and cardiac pacemaker with evidence of congestive failure. Layering pleural effusions and bibasilar atelectasis. - After dialysis consider repeat with a 2 view CXR End-stage renal disease on HD - Normal scheduled HD is on , nephrology on board, plans to take the patient for dialysis today. Atrial fibrillation - Continue patient on Coumadin 5 mg every afternoon - INR currently 2.3 and therapeutic Obstructive sleep apnea - Patient wears 4 L of O2 chronically, continue, patient reports he does not wear CPAP although this has been documented on previous discharge summary. Diabetes mellitus type 2 - We'll continue on insulin sliding scale with Accu-Cheks, uses Toujeo as an outpatient- will switch to Lantus glargine --> initial dose is 80% of the normal dose, then subsequent dosing is a 1:1 conversion. 36 U now, and 45 units subcutaneous in a.m. - Renal, diabetic diet DVT ppx: Teds, SCDs and Coumadin CODE STATUS: Full code -Discussion was held with the patient and he states " I want to remain alive as long as possible, I've got things to do". Disposition: Patient from home, PT/OT, likely will require rehabilitation after this hospitalization, CM to assit with dc planning. I agree with PA assessment and plan Labs reviewed Imaging reviewed SIRS criteria likely from wounds WIll need dialysis Agree with antibx Hyperkalemia noted Nephrology consulted VS reviewed, hypotensive at this time Level of Care Telemetry Advanced Directives Existing Advance Directive: No Existing Living Will: No Existing Power of Assembler Dc Field Ring: No Existing Health Care Proxy: No Resuscitation Status FULL RESUSCITATION VTE Prophylaxis Risk Level: Very Low Given or contraindicated: Warfarin (Coumadin), T.E.D. Stockings, SCD's
[2017-03-01] MEDS ORDERED: DEXTROSE 50% 50 ML SYR IV PRN (11:45)
[2017-03-01] MEDS ORDERED: GLUCOSE 40% GEL 15 GM TUBE PO PRN (11:45)
[2017-03-01] MEDS ORDERED: GLUCOSE 10 TABS/TUBE PO PRN (11:45)
[2017-03-01] MEDS ORDERED: GLUCAGON FOR INJ 1 MG VIAL SQ PRN (11:45)
[2017-03-01] MEDS ORDERED: CALCIUM ACETATE 667MG GELCAP PO PRN (11:45)
[2017-03-01] MEDS: GABAPENTIN 100 MG CAP PO SCH (11:45)
[2017-03-01] MEDS ORDERED: INSULIN GLARGINE SOLOSTAR 100 UNITS/ML 3 ML PEN SC ONE (12:30)
--- NOTE | 2017-03-01 12:35 | NEPHROLOGY CONSULTATION ---
DATE OF CONSULTATION: 03/01/2017 PROBLEM: End-stage renal disease. SUBJECTIVE: Mr. Cabrera is a 71-year-old gentleman, well known to me. I have been his ironer sock over the course of the past year and 3 months. I manage his outpatient dialysis care and provide a certain amount of his primary care needs. His primary care physician is Dr. Sarthak Gracia. Mr. Cabrera has a history of longstanding poorly controlled adult onset diabetes mellitus associated with morbid obesity. His diabetes has been associated with diabetic retinopathy, generalized atherosclerotic cardiovascular disease and nephropathy, which is presumably multifactorial. Additionally, he has a history of atrial fibrillation, for which he has been anticoagulated with Coumadin. He also has a history of presumed autonomic insufficiency. In the past, he has been on midodrine in an effort to support his blood pressure. Mr. Cabrera has a history of chronic obstructive pulmonary disease. At least in part that is caused by or aggravated by his morbid obesity. He has cor pulmonale. His end-stage renal disease is multifactorial and likely related to his diabetes, hypertension, obesity as well as to pulmonary hypertension and cardiorenal syndrome. He has been on maintenance dialysis since 2007. He was switched to my care about a year and 3 months ago. Complications of Mr. Cabrera's end-stage renal disease have included a secondary anemia, which is well controlled with erythrocyte stimulating agents. Additionally, he has had secondary hyperparathyroidism, which has been relatively well controlled as well. In the past, he has had multiple problems and complications of lower extremity wounds for which he has been seen on a regular basis and the wound clinic at [facility]. Over the course of the past 3 months, he has had 2 prior admissions to the hospital. The first was associated with apparent symptomatic bradycardia. That was in October of this year. A pacemaker was placed. He was subsequently transferred to [facility]. Additionally, he was admitted to the hospital in early December with generalized weakness. No specific etiology for those symptoms was detected at that time. He subsequently was transferred to the [facility], but was not happy there and within a brief time, was then transferred to [facility], where he was happy and received a certain degree of rehabilitation therapy. He was discharged from [facility] about 2 weeks ago. He has been at home since that time. He is regularly dialyzed at [facility] in [place]. He is dialyzed 3 times a week, using an Optiflux 200 and dialyzer with a blood flow rate of 500 and a dialysate flow rate of 800. He dialyzes with 2 potassium bath. His bicarbonate deficit is at 37. We used 15-gauge needles in both arterial and venous sides of his fistula. His fistula has been problematic in the past and managed by Dr. Aguirre. However, more recently, we have not had significant difficulties with it. Since discharge from [facility], he has had some increasing problems with draining wounds on his lower extremities and has been seen at the wound clinic. There are notes in the computer. Apparently, he was recently started on an oral antibiotic, but has yet to fill the prescription. He has been treated with topical therapy as well. He was last seen there by Dr. Lola Vincent. Over the past 2 days, he has felt gradually weaker. Last night and early this morning, he describes having shaking chills and being unable to keep warm. He did not check his temperature. He felt weak and short of breath. He denied having any chest pain. He continued to use his oxygen at 4 liters a minute. He was due to be seen at the wound clinic earlier this morning and then report to dialysis, but felt so poorly. He elected to come to the hospital Emergency Room. He was evaluated there and noted to have an elevated white count. He was afebrile, however. His blood pressure was low ____. His oxygen saturation was 97%-100%. Nonetheless, because of his symptoms of shaking chills and an elevated white count, it was elected to admit him for culturing and antibiotic therapy. We should be continuing with topical care of his lower extremity wounds. MEDICATIONS: His regular outpatient medications include acetaminophen 650 mg q. 6 hours p.r.n. low grade fever or pain, allopurinol 100 mg daily, aspirin 81 mg daily, calcium acetate 667 mg 4 with each meal, Coumadin 6 mg daily, Diatx Zn 1 daily, Dulcolax q. 3 days p.r.n., gabapentin 100 mg at bedtime, levothyroxine 50 mcg daily, and NovoLog insulin via sliding scale. He takes Toujeo 45 units daily. Simvastatin 40 mg at bedtime and Sensipar 60 mg daily. He also uses MiraLax once daily on a p.r.n. basis. ALLERGIES: No known medication allergies. The remainder of his past medical history, family history and review of systems as outlined on previous hospital notes and will not be repeated. OBJECTIVE: GENERAL: On physical exam when seen by me, Mr. Cabrera appears as a morbidly obese, chronically ill gentleman who did not appear to be in significant distress despite his complaints. VITAL SIGNS: His blood pressure was 88/53 in the left arm. His pulse is 88 and irregular, respiratory rate was 16-22 with oxygen running at 4 liters a minute, his pulse ox was 97%-100%. SKIN: Shows normal skin turgor. He has changes of chronic venous disease on his distal lower extremities and also has some generalized mottling of his distal lower extremities. He has multiple superficial wound, some of which appear to be draining some serous material. He has a right upper arm AV fistula with a good pulse, thrill and bruit. LYMPHATICS: Show no palpable lymphadenopathy or evidence of lymphangitis. HEAD: Normal. EYES: Grossly normal. The ocular fundi were not examined today. EARS, NOSE, MOUTH AND THROAT: Unremarkable. Oral mucous membranes are moist. NECK: Supple. There is no jugular venous distention, but the exam is limited by his body habitus. I hear no carotid bruit and there is no thyromegaly. CHEST: Shows elevated hemidiaphragms related to his body habitus. Breath sounds are diminished at the bases and he has a few scattered inspiratory and expiratory wheezes. I hear no definite rales. CARDIAC: Shows an irregularly irregular rhythm with a rate of about 88-92. I do not hear a definite murmur or gallop. ABDOMEN: Morbidly obese. It is not tender. There is no obvious organomegaly or mass, but the exam is limited by his body habitus. EXTREMITIES: Show no cyanosis or clubbing. He has trace to 1+ lower extremity edema with venous stasis changes noted as well as the superficial skin lesions noted. Peripheral pulses are difficult to feel in his feet. He has the right upper arm AV fistula. NEUROLOGIC: Shows him to be globally weak. There are no lateralizing changes. PERTINENT LABORATORY WORK: Obtained today shows a white count of 12,380 with 90.1% neutrophils, 3.5% lymphocytes, 4.4% monocytes, 1.6% eosinophils and 0.2% basophils. His hemoglobin was 11.1, his hematocrit 37.3 and his platelet count 296,000. His prothrombin time is 25.6 with an INR of 2.3. His PTT is 56.0 with a PTTR of 2.2. Clinical chemistries show a sodium of 136 mmol/L, potassium 6.2 mmol/L, chloride 93 mmol/L, and CO2 content 34 mmol/L. His BUN is 68 and his creatinine is 8.70. His random blood sugar was 169. His serum calcium is 8.6. Total bilirubin is 0.5. His AST is 18, his ALT is 28 and his alkaline phosphatase is 66. His total protein is 8.0 with a serum albumin of 3.5 and globulin is 4.5. His chest x-ray done today shows cardiomegaly. His pacemaker is in place. He does have evidence of volume overload with layering pleural effusions and bibasilar atelectasis as well. ASSESSMENT: Morbidly obese 71-year-old gentleman with a longstanding history of type 2 insulin-dependent diabetes mellitus and hypertension. He has had end-stage renal disease for the past 9 years and has been on maintenance dialysis. The etiology of his renal disease is multifactorial. He has had multiple infectious complications in the past, usually stemming from lesions on his lower extremities or his chronic lung disease. At the current time, he presents with shaking chills, but no documented fevers. He has an elevated white count and a number of open wounds on his lower extremities. He has been seen in wound clinic. RECOMMENDATIONS: Admission is advised for him to be cultured and started on antibiotics. Certainly, any continuing therapy for infection will be based on the results of those cultures. I have placed dialysis orders for him and he will be dialyzed today. He should continue on his routine outpatient medications. Close attention to his prothrombin time will need to be had when he starts antibiotics. Case was discussed with Dr. Waldron in the Emergency Room. I continue to follow him with you and arrange for his maintenance dialysis treatments.
[2017-03-01] MEDS ORDERED: EPOETIN ALFA 10,000 UNITS/ML VIAL IV. ONE (14:00)
[2017-03-01] MEDS ORDERED: VANCOMYCIN CONSULT ACTIVE PRN (14:30)
--- NOTE | 2017-03-01 14:50 | Pharmacy Progress Note ---
Pharmacy Antibiotic Consult Date of Service: March 01, 2017. Pharmacy Dosing Scope Pharmacy is consulted to initiate vancomycin IV dosing therapy, order appropriate labs and adjust drug dose/frequency. Subjective The patient is a 71 year old male admitted on March 01, 2017 at 11:47 with a new open lesion on 2nd right finger. Also seen in wound clinic for chronic b\l lower extremity weeping wounds. Pt is on MWF HD schedule. Objective Height (Feet): 5 Height (Inches): 10.00 Weight (Kilograms): 148.000 Lab Results (24hrs): Test 03/01/17 07:15 03/01/17 08:00 White Blood Count 12.38 K/uL (4.8-10.8) Red Blood Count 3.94 M/uL (4.7-6.1) Hemoglobin 11.1 g/dL (14.0-18.0) Hematocrit 37.3 % (42-52) Mean Corpuscular Volume 94.7 fL (80-100) Mean Corpuscular Hemoglobin 28.2 pg (25-34) Mean Corpuscular Hemoglobin Concent 29.8 g/dl (32-36) Platelet Count 296 K/uL (130-400) Mean Platelet Volume 9.8 fL (7.4-10.4) Neutrophils (%) (Auto) 90.1 % Lymphocytes (%) (Auto) 3.5 % Monocytes (%) (Auto) 4.4 % Eosinophils (%) (Auto) 1.6 % Basophils (%) (Auto) 0.2 % Neutrophils # (Auto) 11.14 K/uL (1.4-6.5) Lymphocytes # (Auto) 0.43 K/uL (1.2-3.4) Monocytes # (Auto) 0.55 K/uL (0.11-0.59) Eosinophils # (Auto) 0.20 K/uL (0-0.5) Basophils # (Auto) 0.03 K/uL (0-0.2) RDW Standard Deviation 64.8 fL (36.4-46.3) RDW Coefficient of Variation 18.8 % (11.5-14.5) Immature Granulocyte % (Auto) 0.2 % Immature Granulocyte # (Auto) 0.03 K/uL (0.00-0.02) Prothrombin Time 25.6 SECONDS (9.0-12.0) Prothromb Time International Ratio 2.3 (0.9-1.1) Activated Partial Thromboplast Time 56.0 SECONDS (21.0-31.0) Partial Thromboplastin Ratio 2.2 Sodium Level 136 mmol/L (136-145) Potassium Level 6.2 mmol/L (3.5-5.1) Chloride Level 93 mmol/L (98-107) Carbon Dioxide Level 34 mmol/L (21-32) Anion Gap 9.0 mmol/L (3-11) Blood Urea Nitrogen 68 mg/dl (7-18) Creatinine 8.70 mg/dl (0.60-1.40) Est Creatinine Clear Calc Drug Dose 11.3 ml/min Estimated GFR () 6.4 Estimated GFR (Non- 5.5 BUN/Creatinine Ratio 7.9 (10-20) Random Glucose 169 mg/dl (70-99) Calcium Level 8.6 mg/dl (8.5-10.1) Total Bilirubin 0.5 mg/dl (0.2-1) Aspartate Amino Transf (AST/SGOT) 18 U/L (15-37) Alanine Aminotransferase (ALT/SGPT) 28 U/L (12-78) Alkaline Phosphatase 66 U/L (45-117) Total Protein 8.0 gm/dl (6.4-8.2) Albumin 3.5 gm/dl (3.4-5.0) Globulin 4.5 gm/dl (2.5-4.0) Albumin/Globulin Ratio 0.8 (0.9-2) Lactic Acid Level 1.4 mmol/L (0.4-2.0) Recent Pertinent Medications Zosyn dose given in ER Assessment & Plan The patient is a 71 year old male admitted on March 01, 2017 at 11:47 with a new open lesion on 2nd right finger. Also seen in wound clinic for chronic b\l lower extremity weeping wounds. Pt is on MWF HD schedule. Vancomycin: Loading dose: 2000 mg IV X 1 dose (13.5mg/kg) after dialysis session today. Vancomycin dosing will occur as pulse doses given when random levels are within trough dose range. To be ordered after dialysis session. Goal trough level estimate: between 15 - 20 mcg/mL. Random level has been ordered for: 03/03/17 w/ am labs. Pharmacy will continue to follow and will adjust dose/frequency as necessary. Thank you
[2017-03-01] MEDS: INSULIN ASPART 100 UNITS/ML 3 ML PEN SC SCH ×2 (16:15→21:52)
[2017-03-01] MEDS: CALCIUM ACETATE 667MG GELCAP PO SCH (16:45)
[2017-03-01] MEDS ORDERED: VANCOMYCIN INJ 2,000 MG in SODIUM CHLORIDE 0.9% 500ML 500 ML IV SCH (18:00)
[2017-03-01] MEDS ORDERED: MoRPHine SULFATE 2 MG/ML CARP IV STA (18:33)
[2017-03-01] MEDS ORDERED: NITROGLYCERIN 0.4 MG SL PER TAB CHARGE SL STA (18:33)
[2017-03-02] VITALS (7 sets, daily range): BP systolic 77–89; BP diastolic 40–46; PULSE 74–88; TEMP 36.6–37.6; O2SAT 96–99; Ht 177.8 cm; Wt 149.6 kg
[2017-03-02] MEDS: SIMVASTATIN 40 MG TAB PO SCH ×2 (00:48→20:52)
[2017-03-02] MEDS: WARFARIN SOD 5 MG TAB PO SCH ×2 (00:49→16:46)
[2017-03-02] MEDS: LEVOTHYROXINE 25 MCG TAB PO SCH (06:31)
[2017-03-02 06:36] LABS: BASO % 0.2 %; BASO ABS # 0.02 K/uL (0-0.2); COMPLETE YES; EOS % 2.6 %; HEMATOCRIT 31.9 % (42-52); IG% 0.2 %; LYMPH % 5.6 %; LYMPH ABS # 0.52 K/uL (1.2-3.4); MEAN CELL VOLUME 94.1 fL (80-100); MEAN CORPUSCULAR HEMOGLOBIN 27.4 pg (25-34); MEAN CORPUSCULAR HGB CONC 29.2 g/dl (32-36); MEAN PLATELET VOLUME 9.5 fL (7.4-10.4); MONO % 5.6 %; NEUT % 85.8 %; PLATELET COUNT 248 K/uL (130-400); RED BLOOD COUNT 3.39 M/uL (4.7-6.1); WHITE BLOOD COUNT 9.36 K/uL (4.8-10.8)
[2017-03-02] MEDS: INSULIN ASPART 100 UNITS/ML 3 ML PEN SC SCH ×4 (07:00→20:52)
[2017-03-02 07:28] LABS: BUN/CREATININE RATIO 6.7 (10-20); CALCIUM 7.9 mg/dl (8.5-10.1); CREATININE 5.8 mg/dl (0.60-1.40); POTASSIUM 5.2 mmol/L (3.5-5.1)
[2017-03-02] MEDS: CALCIUM ACETATE 667MG GELCAP PO SCH ×3 (07:39→16:46)
[2017-03-02] MEDS: ALLOPURINOL 100 MG TAB PO SCH (08:13)
[2017-03-02] MEDS: GABAPENTIN 100 MG CAP PO SCH (08:13)
[2017-03-02] MEDS: ASPIRIN 81 MG ECTAB PO SCH (08:13)
[2017-03-02] MEDS: POLYETHYLENE (MIRALAX) 17 GM PACK PO SCH (08:14)
[2017-03-02] MEDS ORDERED: INSULIN GLARGINE SOLOSTAR 100 UNITS/ML 3 ML PEN SC SCH (09:00)
--- NOTE | 2017-03-02 09:41 | Clinical Documentation Query ---
CLINICAL DOCUMENTATION QUERY In your clinical opinion is this patient being managed for: ( X ) Sepsis evidenced by SIRS (tachycardia, hypotension, leukocytosis) with open draining leg wounds treated with IV antibiotics. ( ) Other explanation of clinical findings (Please Explain) ( ) Unable to determine (Please Define) ( ) Need to Discuss ( ) Not Agree The medical record reflects the following clinical findings, treatment, and risk factors. Clinical Indicators: + swelling and chronic wound drainage on bilateral legs, + open wound on R pointer finger, Leukocytosis 12.38, tachycardia 114, hypotension 80s/40s. Treatment: IV Vancomycin, IV Zosyn, Risk Factors: Open wounds, ESRD, AV fistula Please clarify and document your clinical opinion in the progress notes and discharge summary. Terms such as "probable", "suspected", "likely", "questionable", "possible", or "still to be ruled out" are acceptable. IF IN AGREEMENT, YOU MUST DOCUMENT ABOVE DIAGNOSTIC STATEMENT IN DAILY PROGRESS NOTES AND DISCHARGE SUMMARY. This document is not part of the patient's record. Thank You, Jayro Stock, RN [phone]
[2017-03-02] MEDS ORDERED: NURSING VERBAL MED ORDER ONE (09:45)
[2017-03-02] MEDS ORDERED: EPOETIN ALFA 10,000 UNITS/ML VIAL IV. ONE (10:30)
--- NOTE | 2017-03-02 11:01 | NEPHROLOGY PROGRESS NOTE ---
DATE: 03/02/2017 DATE: 03/02/2017. SUBJECTIVE: Mr. Cabrera says that he is feeling significantly better. He has had no further chills or chilly sensations. He has had no significant diaphoresis. Mr. Cabrera is a large man. He is uncomfortable lying in bed and feels that he has to sit in a reclining chair to be comfortable, particularly breathing. He was uncomfortable until he got his chair last evening. Additionally, he has recently been on Toujeo for the control of his blood sugar. Apparently this was not stocked in the hospital pharmacy. Mr. Cabrera's did bring in his Toujeo insulin and it has been administered. With the above 2 exceptions, Mr. Cabrera has no other immediate complains about his care. He says that he has been getting his medicine on time. He has no shortness of breath at rest, using his oxygen. He did have a twinge of left parasternal chest pain last night. He is currently asymptomatic. He has no leg pain. His dialysis treatment yesterday was uncomplicated, 3.4 liters of fluid were removed. OBJECTIVE: GENERAL: On physical exam at the current time, Mr. Cabrera appears to be comfortable. He was sitting up in his reclining chair. VITAL SIGNS: He is afebrile (36.8), his blood pressure was 82/44 with a pulse of 74 and basically regular. A monitored strip however did show a transient episode of what appeared to be supraventricular tachycardia. His respiratory rate is 18. His pulse ox 95-96% on 4 liters of oxygen via nasal cannula. SKIN: Shows normal skin turgor. He has significant changes of venous stasis dermatitis on his distal lower extremities. He has a few areas of excoriation and open wounds there as well. The inflammatory changes associated with venous stasis dermatitis are difficult to separate out from any potential cellulitis. LYMPHATICS: Show no evidence of lymphangitis or palpable lymphadenopathy. HEAD: Normal. EYES: Grossly normal. The ocular fundi were not examined. EARS, NOSE, MOUTH AND THROAT: Unremarkable. His oral mucous membranes are moist. NECK: Supple. There is no jugular venous distention, but the exam is difficult because of his body habitus. I hear no carotid bruit. CHEST: Shows elevated hemidiaphragms related to his body habitus. He has diminished breath sounds at the bases. I do not hear any wheezes, rales or rhonchi today. CARDIAC EXAMINATION: Showed a basically regular rhythm at the time seen by me. I did not hear any definite murmur or gallop. ABDOMEN: Morbidly obese. It was nontender. There is no obvious organomegaly or mass, but again the exam was limited by his body habitus. EXTREMITIES: Show no cyanosis or clubbing. He has trace lower extremity edema associated with obvious changes of venous stasis dermatitis as noted above. He has multiple superficial skin lesions as well. Peripheral pulses in his feet are difficult to feel. He also has a blistering lesion on his right forefinger. NEUROLOGIC EXAMINATION: Shows global weakness but no lateralizing changes. Movement is limited by his body habitus. PERTINENT LABORATORY WORK: From today shows a white count down to 9,360. He still is 85.8% neutrophils, 5.6% lymphocytes, 5.6% monocytes, 2.6% eosinophils and 0.2% basophils. His hemoglobin is 9.3, his hematocrit 31.9, his platelet count 248,000. Prothrombin time was not repeated today. His clinical chemistries were not repeated either. ASSESSMENT: Mr. Cabrera appears to be stable at the current time. He is afebrile. Skin cultures grew out both strep and staph species with further identification pending. Blood cultures are negative so far. His MRSA surveillance of nasal swab is negative. RECOMMENDATIONS: No change for now, would continue antibiotics pending the results of his blood culture. His next dialysis will be scheduled for tomorrow. It would be rollins to check blood sugars 4 times a day and administer any additional subcutaneous insulin via sliding scale. No other immediate recommendations. His next dialysis will be tomorrow.
--- NOTE | 2017-03-02 12:17 | Progress Note ---
Subjective Date of Service: March 02, 2017. Subjective Pt evaluation today including: conversation w/ patient, physical exam, chart review, lab review, review of studies, review of inpatient medication list Pt resting comfortably in recliner States resp distress when in hospital bed No fevers, chills No acute events overnight Problem List Medical Problems: (1) Ambulatory dysfunction Status: Acute (2) Hyperkalemia Status: Acute (3) Leukocytosis Status: Acute (4) Superficial injury of right index finger with infection Status: Acute (5) Ulcers of both lower extremities Status: Acute Review of Systems Constitutional: No chills, No fever ENT: No hearing loss, No sore throat, No unusual epistaxis Respiratory: No cough, No shortness of breath, No sputum, No wheezing Cardiac: No PND, No chest pain, No edema, No orthopnea Abdomen: No diarrhea, No nausea, No pain, No vomiting Musculoskeletal: No calf pain, No joint pain, No muscle pain, No swelling Male : No dysuria, No incontinence, No slowing stream, No urinary frequency Neurologic: No memory loss, No numbness/tingling, No paralysis, No weakness Psychiatric: No anhedonism, No depression symptoms Skin: No itch, No rash Objective Vital Signs Date Time Temp Pulse Resp B/P Pulse Ox O2 Delivery O2 Flow Rate FiO2 03/02/17 11:33 37.6 80 20 77/41 98 4.0 03/02/17 08:00 96 Nasal Cannula 4.0 03/02/17 07:51 36.8 74 18 82/44 96 4.0 03/02/17 04:00 Nasal Cannula 4.0 03/01/17 23:59 Nasal Cannula 4.0 03/01/17 23:57 36.8 96 30 85/45 95 Nasal Cannula 03/01/17 23:56 36.8 92 85/45 03/01/17 23:15 85 86/47 03/01/17 23:00 86 79/42 03/01/17 22:45 86 80/44 03/01/17 22:30 86 80/42 03/01/17 22:15 92 79/45 03/01/17 22:00 91 88/50 03/01/17 21:45 90 160/90 03/01/17 21:30 93 145/97 03/01/17 21:15 94 89/69 03/01/17 21:00 94 89/69 03/01/17 20:45 78 85/52 03/01/17 20:30 79 90/53 03/01/17 20:25 37.2 82 30 70/42 03/01/17 20:15 70 83/43 03/01/17 20:00 77 66/36 03/01/17 20:00 Nasal Cannula 4.0 03/01/17 19:45 77 69/39 03/01/17 19:30 82 70/43 03/01/17 19:21 85/ 03/01/17 19:15 87 75/32 03/01/17 19:14 37.2 76 77/39 03/01/17 19:00 114 85/53 03/01/17 16:00 Nasal Cannula 4.0 03/01/17 14:00 36.9 86 18 91/44 96 Room Air Physical Exam General Appearance: WD/WN, no apparent distress Eyes: normal inspection, PERRL, EOMI, sclerae normal Neck: supple, no adenopathy, thyroid normal, no JVD Respiratory/Chest: chest non-tender, no respiratory distress, no accessory muscle use, + decreased breath sounds Cardiovascular: regular rate, rhythm, no edema, no gallop, no JVD Abdomen: normal bowel sounds, non tender, soft, no organomegaly Extremities: normal range of motion, non-tender, normal inspection, + pedal edema, + pertinent finding (venous stasis bilateral lower ext, weeping lesions noted on bilateral feet with dressings) Neurologic/Psychiatric: no motor/sensory deficits, alert, normal mood/affect, oriented x 3 Laboratory Results Last 24 Hours Test 03/01/17 16:44 03/01/17 20:35 03/02/17 06:00 03/02/17 06:40 Bedside Glucose 165 mg/dl 131 mg/dl 136 mg/dl White Blood Count 9.36 K/uL Red Blood Count 3.39 M/uL Hemoglobin 9.3 g/dL Hematocrit 31.9 % Mean Corpuscular Volume 94.1 fL Mean Corpuscular Hemoglobin 27.4 pg Mean Corpuscular Hemoglobin Concent 29.2 g/dl Platelet Count 248 K/uL Mean Platelet Volume 9.5 fL Neutrophils (%) (Auto) 85.8 % Lymphocytes (%) (Auto) 5.6 % Monocytes (%) (Auto) 5.6 % Eosinophils (%) (Auto) 2.6 % Basophils (%) (Auto) 0.2 % Neutrophils # (Auto) 8.04 K/uL Lymphocytes # (Auto) 0.52 K/uL Monocytes # (Auto) 0.52 K/uL Eosinophils # (Auto) 0.24 K/uL Basophils # (Auto) 0.02 K/uL RDW Standard Deviation 64.7 fL RDW Coefficient of Variation 18.7 % Immature Granulocyte % (Auto) 0.2 % Immature Granulocyte # (Auto) 0.02 K/uL Sodium Level 138 mmol/L Potassium Level 5.2 mmol/L Chloride Level 98 mmol/L Carbon Dioxide Level 35 mmol/L Anion Gap 5.0 mmol/L Blood Urea Nitrogen 39 mg/dl Creatinine 5.80 mg/dl Est Creatinine Clear Calc Drug Dose 16.8 ml/min Estimated GFR () 10.4 Estimated GFR (Non- 9.0 BUN/Creatinine Ratio 6.7 Random Glucose 142 mg/dl Calcium Level 7.9 mg/dl Test 03/02/17 11:14 03/02/17 11:47 Bedside Glucose 149 mg/dl Assessment and Plan This is a 71 yo male with PMHx of chronic diastolic CHF, diabetes type 2 with peripheral neuropathy, atrial fibrillation on anticoagulation, ESRD on HD MWF, obstructive sleep apnea, chronically on 4 L O2 and not on CPAP, PVD, and bilateral lower extremity edema with chronic wounds, morbid obesity. Generalized weakness with Leukocytosis meeting SIRs criteria, resolving - Admitted to tele - Improving on zosyn, vancomycin stopped as MRSA nares neg - Initial cx pos for staph and strep species, will await further sens before transitioning to PO antibx - PT/OT consulted and awaiting recs Acute on chronic diastolic CHF, stable at this time S/p pacemaker insertion - Cont ASA 81 mg and Simvastatin 40 mg daily - CXR 1 view showing :Cardiomegaly and cardiac pacemaker with evidence of congestive failure. Layering pleural effusions and bibasilar atelectasis. End-stage renal disease on HD - Normal scheduled HD is on , nephrology on board, plans to take the patient for dialysis today. - Appreciate nephrology recs, cont dialysis, next session to be 03/03 Atrial fibrillation - Continue patient on Coumadin 5 mg every afternoon - INR currently therapeutic, no acute issues during hospital course Obstructive sleep apnea - Patient wears 4 L of O2 chronically, continue, patient reports he does not wear CPAP although this has been documented on previous discharge summary. Diabetes mellitus type 2, no episodes of hyperglycemia, stable - Restart on pts toujeo dosing, pt brought medicine in to be used as med is not in pharmacy - Renal, diabetic diet DVT ppx: Teds, SCDs and Coumadin CODE STATUS: Full code
[2017-03-02] MEDS ORDERED: VANCOMYCIN INJ 1,000 MG in SODIUM CHLORIDE 0.9% 250ML 250 ML IV ONE (14:15)
--- NOTE | 2017-03-02 15:10 | Pharmacy Progress Note ---
Pharmacy Abx Dose Short Note Date of Service March 02, 2017. Assessment & Plan Assessment 71 year old male receiving VANCOMYCIN IV - dosing based upon random levels - for treatment of R 2nd finger infection and lower ext cellulitis Day # 3 of antimicrobial therapy. Plan Vancomycin * 2000mg IV x 1 given yesterday during hemodialysis * Random level was 8.2 mcg/mL today - indicating need to redose * Will give another 1000mg x 1 to raise level to therapeutic range * Will continue to check random levels prior to HD (next HD sched tomorrow); goal is to maintain pre-HD levels 15-20 Pharmacy will continue to follow and will adjust dose/frequency as necessary. Thank you.
[2017-03-03] VITALS (25 sets, daily range): BP systolic 58–102; BP diastolic 35–53; PULSE 73–88; TEMP 36.5–37.6; O2SAT 97–99
[2017-03-03] MEDS: LEVOTHYROXINE 25 MCG TAB PO SCH (05:55)
[2017-03-03] MEDS ORDERED: SODIUM CHLORIDE 0.9% 1000ML 1,000 ML IV PRN (06:00)
[2017-03-03] MEDS ORDERED: EPOETIN ALFA INJ 15,000 UNITS in SYRINGE 0 ML IV. SCH (06:00)
[2017-03-03] MEDS: CALCIUM ACETATE 667MG GELCAP PO SCH ×3 (06:39→15:27)
[2017-03-03] MEDS: INSULIN ASPART 100 UNITS/ML 3 ML PEN SC SCH ×4 (06:41→19:57)
[2017-03-03 06:51] LABS: BASO % 0.4 %; BASO ABS # 0.03 K/uL (0-0.2); COMPLETE YES; EOS % 5.1 %; HEMATOCRIT 32.1 % (42-52); IG% 0.1 %; LYMPH % 9.9 %; LYMPH ABS # 0.72 K/uL (1.2-3.4); MEAN CORPUSCULAR HEMOGLOBIN 26.9 pg (25-34); MEAN CORPUSCULAR HGB CONC 29.3 g/dl (32-36); MEAN PLATELET VOLUME 9.2 fL (7.4-10.4); MONO % 8.4 %; NEUT % 76.1 %; PLATELET COUNT 227 K/uL (130-400); RED BLOOD COUNT 3.49 M/uL (4.7-6.1); WHITE BLOOD COUNT 7.25 K/uL (4.8-10.8)
[2017-03-03 07:47] LABS: BUN/CREATININE RATIO 8.5 (10-20); CALCIUM 8.1 mg/dl (8.5-10.1); POTASSIUM 5.7 mmol/L (3.5-5.1)
[2017-03-03] MEDS ORDERED: SODIUM CHLORIDE 0.65% NA SOLN 45 ML (OCEAN) PRN (10:00)
--- NOTE | 2017-03-03 10:34 | NEPHROLOGY PROGRESS NOTE ---
DATE: 03/03/2017 SUBJECTIVE: Mr. Cabrera says that in general, he is feeling somewhat better. Certainly, he feels better than he did at the time of admission. He denies having any chest pain. He does complain of being somewhat short of breath because of a dryness of his nasal mucous membranes. He usually uses [place] nasal spray and complains that it has not been getting adhere. He also complains of getting short of breath when he lies back in his reclining chair. This is a usual situation for him that at least in part is related to his body habitus. In general, however, he says that he does not have the sensation of doom that he had at the time of his admission. He denies having any shaking chills or sweats. He says that his appetite is reasonably good and he has no nausea or vomiting. He complains that he is not getting his PhosLo appropriately. He has some itchiness in his groin, for which he generally uses Nizoral cream because of a previous recognition of an intertriginous dermatitis ____. He also complains of some discomfort from his hemorrhoids, for which he generally uses Preparation H. OBJECTIVE: GENERAL: ____ just his dialysis treatment was initiated. He generally looks well, but has somewhat of a depressed affect. VITAL SIGNS: His blood pressure is 79/49, his pulse is 82 and regular, his respiratory rate is 18-22, and his pulse ox using 4 liters of nasal oxygen is 97%-99%. SKIN: Shows normal skin turgor. He has some significant changes of venous stasis dermatitis on his lower extremities. They have been wrapped by the wound care nurses. He has scars from prior surgical procedures, most notably a scar on his left upper arm from the creation of an AV fistula and multiple dialysis needle tract henry over the fistula. LYMPHATICS: Show no palpable lymphadenopathy. HEAD: Normal. EYES: Grossly normal. The ocular fundi were not examined. EARS, NOSE, MOUTH AND THROAT: Unremarkable. Oral mucous membranes are moist. NECK: Supple. He has no jugular venous distention, but the exam is limited because of his body habitus. There is no carotid bruit. CHEST: Shows elevated hemidiaphragms related to his body habitus. He has diminished breath sounds at the bases. I hear no wheezes, rales or rhonchi. CARDIAC: Shows an irregular rhythm at that time seen. He has a soft systolic murmur at the base radiating toward the neck. ABDOMEN: Morbidly obese. It is nontender. There is no organomegaly or mass, but again the exam is limited by his size. EXTREMITIES: Show no cyanosis or clubbing. He has trace to 1+ lower extremity edema associated with the changes of venous stasis dermatitis and associated inflammation. He has multiple superficial skin lesions as well. Peripheral pulses are difficult to feel. He still has the blistering lesion on his right forefinger. NEUROLOGIC: Shows somewhat of a global weakness, but no lateralizing changes. PERTINENT LABORATORY WORK: Done today shows a white count of 7250 with 76.1% neutrophils, 9.9% lymphocytes, 8.4% monocytes, 5.1% eosinophils and 0.4% basophils. His hemoglobin is 9.4, his hematocrit is 32.1, and platelet count is 227,000. His clinical chemistries today show a sodium of 136 mmol/L, potassium 5.7 mmol/L, chloride 96 mmol/L, and CO2 content 31 mmol/L. His BUN is 68 and his creatinine is 8.00. His blood sugars vary from 96 to 173 and his serum calcium is 8.1. His serum magnesium is 2.3. ASSESSMENT: Certainly, Mr. Cabrera appears to be fairly stable and improved from the time of admission at least according to his symptomatology. However, he also has had significant improvement in his white count. He has also had a dip in his hemoglobin, although there is no obvious indication of blood loss. RECOMMENDATIONS: His dialysis treatment is today. We have ____ tried to select the degree of ultrafiltration that we should use. It will be at least in part dependent on how his blood pressure holds up during dialysis. Given his size, his blood pressure measurements are always in question particularly with a strong probability of underlying significant vascular disease. Dialysis today. Continue with his regular care and antibiotic therapy. The possibility is that he could be discharged soon, although he feels that he would prefer to stay for a few more days given the level of his improvement and his concern about transportation to dialysis over the weekend. Certainly that should not be a major factor in the decision regarding discharge.
[2017-03-03] MEDS: ALLOPURINOL 100 MG TAB PO SCH (12:59)
[2017-03-03] MEDS: POLYETHYLENE (MIRALAX) 17 GM PACK PO SCH (12:59)
[2017-03-03] MEDS: GABAPENTIN 100 MG CAP PO SCH (12:59)
[2017-03-03] MEDS: ASPIRIN 81 MG ECTAB PO SCH (12:59)
[2017-03-03] MEDS: INSULIN GLARGINE 300 UNITS/ML INJ SC SCH (13:02)
--- NOTE | 2017-03-03 14:02 | Hospitalist Progress Note ---
Hospitalist Progress Note Date of Service March 03, 2017. (Randell Vásquez, ZURI) Subjective Pt evaluation today including: conversation w/ patient, physical exam, chart review, lab review, review of inpatient medication list Pain: denies any acute pain PO Intake: tolerating PO Seen after dialysis - c/o general weakness, dry nose, and cough. No C/P or significant SOB at rest. Still BEE Constitutional: + weakness, No chills, No fatigue, No fever, No problem reported, No see HPI, No sweats, No weight loss Eyes: No diplopia, No discharge, No eye pain, No problem reported, No redness, No see HPI, No worsening of vision ENT: No dental problems, No hearing loss, No nasal symptoms, No problem reported, No see HPI, No sore throat, No tinnitus, No trouble swallowing, No unusual epistaxis Respiratory: + cough, + dyspnea on exertion, + wheezing Cardiovascular: + orthopnea, No PND, No chest pain, No claudication, No edema, No palpitations, No problem reported, No see HPI Abdomen: No GI bleeding, No constipation, No diarrhea, No nausea, No pain, No problem reported, No see HPI, No vomiting Musculoskeletal: + problem reported (general weakness) Neurologic: + weakness Heme: No abnormal bleeding/bruising, No clotting problems, No night sweats, No problem reported, No see HPI, No swollen lymph nodes Skin: No bleeding, No color change, No itch, No new/changing skin lesions, No problem reported, No rash, No see HPI (Randell Vásquez CRNP) Medications reviewed (Randell Vásquez, ZURI) Objective Vital Signs Date Time Temp Pulse Resp B/P Pulse Ox O2 Delivery O2 Flow Rate FiO2 03/03/17 12:33 36.5 81 76/49 03/03/17 12:15 81 77/43 03/03/17 12:00 81 77/45 03/03/17 11:45 83 74/43 03/03/17 11:30 82 68/41 03/03/17 11:15 81 69/39 03/03/17 11:00 88 58/43 03/03/17 10:45 83 72/42 03/03/17 10:30 81 78/41 03/03/17 10:15 88 78/53 03/03/17 10:00 82 75/43 03/03/17 09:45 83 90/53 03/03/17 09:34 82 79/49 03/03/17 09:15 79 80/45 03/03/17 09:00 80 102/45 03/03/17 08:45 79 75/44 03/03/17 08:30 77 80/44 03/03/17 08:15 77 76/48 03/03/17 08:09 76 77/45 03/03/17 07:45 74 86/42 03/03/17 07:31 37.0 73 86/43 03/03/17 04:05 36.5 76 22 86/41 99 Nasal Cannula 4.0 03/03/17 04:00 Nasal Cannula 4.0 03/03/17 00:08 36.7 76 20 79/42 97 Nasal Cannula 4.0 03/03/17 00:00 Nasal Cannula 4.0 03/02/17 20:25 36.6 88 18 86/44 97 Nasal Cannula 03/02/17 20:00 Nasal Cannula 4.0 03/02/17 16:38 36.9 76 20 89/46 99 Nasal Cannula 4.0 03/02/17 16:00 Nasal Cannula 4.0 03/02/17 14:21 83 98 (Randell Vásquez ., NANNY BABYSITTER) Physical Exam General Appearance: no apparent distress Eyes: sclerae normal ENT: pharynx normal Neck: supple, no JVD Respiratory/Chest: + decreased breath sounds, + wheezing Cardiovascular: regular rate, rhythm, no JVD, + systolic murmur Abdomen: non tender, soft (obese) Extremities: + pedal edema (venous stasis discoloration) Neurologic/Psychiatric: alert, oriented x 3 Skin: normal color, no rash (bilateral lower extremity and left 2 digit dressing dry and intact) (Randell Vásquez ., NANNY BABYSITTER) Laboratory Results Last 24 Hours Test 03/02/17 14:49 03/02/17 16:16 03/02/17 20:49 03/03/17 06:21 Magnesium Level 2.3 mg/dl Bedside Glucose 173 mg/dl 165 mg/dl White Blood Count 7.25 K/uL Red Blood Count 3.49 M/uL Hemoglobin 9.4 g/dL Hematocrit 32.1 % Mean Corpuscular Volume 92.0 fL Mean Corpuscular Hemoglobin 26.9 pg Mean Corpuscular Hemoglobin Concent 29.3 g/dl Platelet Count 227 K/uL Mean Platelet Volume 9.2 fL Neutrophils (%) (Auto) 76.1 % Lymphocytes (%) (Auto) 9.9 % Monocytes (%) (Auto) 8.4 % Eosinophils (%) (Auto) 5.1 % Basophils (%) (Auto) 0.4 % Neutrophils # (Auto) 5.51 K/uL Lymphocytes # (Auto) 0.72 K/uL Monocytes # (Auto) 0.61 K/uL Eosinophils # (Auto) 0.37 K/uL Basophils # (Auto) 0.03 K/uL RDW Standard Deviation 62.6 fL RDW Coefficient of Variation 18.6 % Immature Granulocyte % (Auto) 0.1 % Immature Granulocyte # (Auto) 0.01 K/uL Sodium Level 136 mmol/L Potassium Level 5.7 mmol/L Chloride Level 96 mmol/L Carbon Dioxide Level 31 mmol/L Anion Gap 9.0 mmol/L Blood Urea Nitrogen 68 mg/dl Creatinine 8.00 mg/dl Est Creatinine Clear Calc Drug Dose 12.2 ml/min Estimated GFR () 7.1 Estimated GFR (Non- 6.1 BUN/Creatinine Ratio 8.5 Random Glucose 96 mg/dl Calcium Level 8.1 mg/dl Random Vancomycin Level 14.4 mcg/ml Test 03/03/17 06:35 03/03/17 12:59 Bedside Glucose 99 mg/dl 136 mg/dl (Randell Vásquez ., ZURI) Assessment and Plan 71 yo male with PMHx of chronic diastolic CHF, diabetes type 2 with peripheral neuropathy, atrial fibrillation on coumadin, ESRD on HD MWF, obstructive sleep apnea, chronically on 4 L O2 and not on CPAP, PVD, and bilateral lower extremity edema with chronic wounds, morbid obesity. 1. SIRS with left second digit cellulitis/wound - improving - WBC normal, afebrile. C&S available. - coag negative staph and enterococcus faecalis. Start amoxicillin - sensitive. 2. ambulatory dysfunction/weakness - PT/OT 3. Acute on chronic diastolic CHF, stable at this time S/P pacemaker insertion from December 2016 - Cont ASA 81 mg and Simvastatin 40 mg daily - not on diuretics at home 4. End-stage renal disease on HD - Normal scheduled HD is on --, nephrology on board, plans to take the patient for dialysis today. - Appreciate nephrology recs, cont dialysis M,W,F 5. Hypotension - has history of autonomic dysregulation. Has been on midodrin in the past. Pressures are mainly in the 80s systolic. no change with dialysis 6. Atrial fibrillation - Continue patient on Coumadin 5 mg every afternoon - INR currently therapeutic 7. Obstructive sleep apnea - Patient wears 4 L of O2 chronically, continue, patient reports he does not wear CPAP although this has been documented on previous discharge summary. 8. Diabetes mellitus type 2 - stable, continue long acting with SSI 9. DVT ppx: Teds, SCDs and Coumadin 10. CODE STATUS: Full code 11. Disposition - Await PT/OT - patient states too weak to go home. Has had stays with SNF in the past. Otherwise, medically I suspect can be discharged in a day or two. Continued [facility] stay due to: abnormal vital signs Discharge planning: uncertain (Randell Vásquez ., ZURI) Attending Attestation: Chart reviewed. I agree with the hurt components of ZURI Vásquez's documentation. Tin Coronado MD (Tin Coronado MD)
[2017-03-03] MEDS: WARFARIN SOD 5 MG TAB PO SCH (15:27)
[2017-03-03] MEDS: KETOCONAZOLE 2% CR 15 GM TUBE EXT SCH (19:49)
[2017-03-03] MEDS: DOXYCYCLINE HYCLATE 100 MG CAP PO SCH (19:49)
[2017-03-03] MEDS: AMOXICILLIN 500 MG CAP PO SCH (19:49)
[2017-03-03] MEDS: SIMVASTATIN 40 MG TAB PO SCH (19:50)
[2017-03-03] MEDS: CALCIUM ACETATE 667MG GELCAP PO PRN (19:51)
[2017-03-04] VITALS (11 sets, daily range): BP systolic 86–101; BP diastolic 38–64; PULSE 62–78; TEMP 36.2–37.1; O2SAT 98–99
[2017-03-04] MEDS: LEVOTHYROXINE 25 MCG TAB PO SCH (05:44)
[2017-03-04] MEDS: INSULIN ASPART 100 UNITS/ML 3 ML PEN SC SCH ×4 (07:43→21:00)
[2017-03-04] MEDS: GABAPENTIN 100 MG CAP PO SCH (07:44)
[2017-03-04] MEDS: CALCIUM ACETATE 667MG GELCAP PO SCH ×3 (07:44→17:10)
[2017-03-04] MEDS: KETOCONAZOLE 2% CR 15 GM TUBE EXT SCH ×2 (07:44→20:49)
[2017-03-04] MEDS: DOXYCYCLINE HYCLATE 100 MG CAP PO SCH ×2 (07:45→20:50)
[2017-03-04] MEDS: ALLOPURINOL 100 MG TAB PO SCH (07:45)
[2017-03-04] MEDS: ASPIRIN 81 MG ECTAB PO SCH (07:45)
[2017-03-04] MEDS: POLYETHYLENE (MIRALAX) 17 GM PACK PO SCH (07:45)
[2017-03-04] MEDS: INSULIN GLARGINE 300 UNITS/ML INJ SC SCH (07:46)
[2017-03-04 08:15] LABS: BASO % 0.4 %; BASO ABS # 0.03 K/uL (0-0.2); COMPLETE YES; EOS % 5.4 %; HEMATOCRIT 35.5 % (42-52); IG% 0.3 %; LYMPH % 11.9 %; LYMPH ABS # 0.81 K/uL (1.2-3.4); MEAN CELL VOLUME 92.9 fL (80-100); MEAN CORPUSCULAR HEMOGLOBIN 27.5 pg (25-34); MEAN CORPUSCULAR HGB CONC 29.6 g/dl (32-36); MEAN PLATELET VOLUME 9.5 fL (7.4-10.4); MONO % 6.5 %; NEUT % 75.5 %; PLATELET COUNT 239 K/uL (130-400); RED BLOOD COUNT 3.82 M/uL (4.7-6.1); WHITE BLOOD COUNT 6.81 K/uL (4.8-10.8)
[2017-03-04 08:17] LABS: INR 2.8 (0.9-1.1); PROTHROMBIN TIME (PATIENT) 31.6 SECONDS (9.0-12.0)
--- NOTE | 2017-03-04 09:35 | Nephrology Progress Note ---
Nephrology Progress Note Date of Service March 04, 2017. Chief Complaint ESRD Subjective No acute events overnight. No complaints this morning. Tolerated HD yesterday , UF 4.5 kg. Appetite good. No fevers or chills. Denies shortness of breath. No chest pain or palpitations. Denies significant pain. Mr. Cabrera states that overall he feels significantly improved since admission. Review of Systems A complete review of systems was performed. Pertinent positives are noted above. All other systems are negative. Vital Signs Last 8 Hrs Date Time Temp Pulse Resp B/P Pulse Ox O2 Delivery O2 Flow Rate FiO2 03/04/17 04:20 36.8 62 18 101/61 99 Nasal Cannula 4.0 03/04/17 04:00 Nasal Cannula 4.0 I & O 24-Hour Column 03/04/17 08:00 Intake Total 700 ml Output Total 4051 ml Balance -3351 ml Last Recorded Weight Weight (Kilograms): 144.600 Physical Exam General Appearance: no apparent distress, + obese Head: normocephalic, atraumatic Eyes: normal inspection, sclerae normal ENT: normal ENT inspection, pharynx normal Neck: supple, no JVD Respiratory/Chest: lungs clear, no respiratory distress, no accessory muscle use Cardiovascular: regular rate, rhythm, no gallop, no murmur Abdomen/GI: non tender, soft, + distended Extremities/Musculoskelatal: normal inspection, no pedal edema, + pertinent finding (AVF with thrill and bruit) Neurologic/Psych: alert, oriented x 3 Family History Patient reports no known family medical history. Social History Smoking Status: Never smoker Smokeless Tobacco Use: No Alcohol Use: none Drug Use: none Marital Status: Housing Status: lives with family Occupation: retired Laboratory Results Past 24 Hours 03/04/17 07:53 Red Blood Count 3.82, Mean Corpuscular Volume 92.9, Mean Corpuscular Hemoglobin 27.5, Mean Corpuscular Hemoglobin Concent 29.6, Mean Platelet Volume 9.5, Neutrophils (%) (Auto) 75.5, Lymphocytes (%) (Auto) 11.9, Monocytes (%) (Auto) 6.5, Eosinophils (%) (Auto) 5.4, Basophils (%) (Auto) 0.4, Neutrophils # (Auto) 5.14, Lymphocytes # (Auto) 0.81, Monocytes # (Auto) 0.44, Eosinophils # (Auto) 0.37, Basophils # (Auto) 0.03 Test 03/03/17 12:59 03/03/17 16:47 03/03/17 19:47 03/04/17 06:33 Bedside Glucose 136 mg/dl (70-99) 160 mg/dl (70-99) 123 mg/dl (70-99) 115 mg/dl (70-99) Test 03/04/17 07:53 White Blood Count 6.81 K/uL (4.8-10.8) Red Blood Count 3.82 M/uL (4.7-6.1) Hemoglobin 10.5 g/dL (14.0-18.0) Hematocrit 35.5 % (42-52) Mean Corpuscular Volume 92.9 fL (80-100) Mean Corpuscular Hemoglobin 27.5 pg (25-34) Mean Corpuscular Hemoglobin Concent 29.6 g/dl (32-36) Platelet Count 239 K/uL (130-400) Mean Platelet Volume 9.5 fL (7.4-10.4) Neutrophils (%) (Auto) 75.5 % Lymphocytes (%) (Auto) 11.9 % Monocytes (%) (Auto) 6.5 % Eosinophils (%) (Auto) 5.4 % Basophils (%) (Auto) 0.4 % Neutrophils # (Auto) 5.14 K/uL (1.4-6.5) Lymphocytes # (Auto) 0.81 K/uL (1.2-3.4) Monocytes # (Auto) 0.44 K/uL (0.11-0.59) Eosinophils # (Auto) 0.37 K/uL (0-0.5) Basophils # (Auto) 0.03 K/uL (0-0.2) RDW Standard Deviation 62.7 fL (36.4-46.3) RDW Coefficient of Variation 18.4 % (11.5-14.5) Immature Granulocyte % (Auto) 0.3 % Immature Granulocyte # (Auto) 0.02 K/uL (0.00-0.02) Prothrombin Time 31.6 SECONDS (9.0-12.0) Prothromb Time International Ratio 2.8 (0.9-1.1) Allergies Coded Allergies: No Known Allergies (Verified , 03/01/17) Medications Current Inpatient Medications Medications (Trade) Dose Ordered Sig/[place] Route Start Time Stop Time Status Last Admin Dose Admin Allopurinol (Zyloprim Tab) 100 mg DAILY PO 03/02/17 09:00 04/01/17 08:59 03/04/17 07:45 100 MG Aspirin (Ecotrin Tab) 81 mg DAILY PO 03/02/17 09:00 04/01/17 08:59 03/04/17 07:45 81 MG Gabapentin (Neurontin Cap) 100 mg DAILY PO 03/01/17 11:45 03/31/17 11:44 03/04/17 07:44 100 MG Levothyroxine Sodium (Synthroid Tab) 25 mcg DAILYBB PO 03/02/17 06:00 04/01/17 05:59 03/04/17 05:44 25 MCG Polyethylene (Miralax Powder Packet) 17 gm QAM PO 03/02/17 09:00 04/01/17 08:59 03/04/17 07:45 17 GM Simvastatin (Zocor Tab) 40 mg QPM PO 03/01/17 21:00 03/31/17 20:59 03/03/17 19:50 40 MG Warfarin Sodium (Coumadin Tab) 5 mg DAILY@1600 PO 03/01/17 16:00 03/31/17 15:59 03/03/17 15:27 5 MG Miscellaneous Information (Order Awaiting Action) 1 ea QS N/A 03/01/17 16:00 03/31/17 15:59 Insulin Aspart (novoLOG ASPART) SLIDING SCALE If C... ACHS SC 03/01/17 16:15 03/31/17 16:14 03/04/17 07:43 9 UNITS Glucose (Glucose 40% Gel) 15-30 GRAMS 15 GRAMS... UD PRN PO 03/01/17 11:45 03/31/17 11:44 Glucose (Glucose Chew Tab) 4-8 Tablets 4 Tabl... UD PRN PO 03/01/17 11:45 03/31/17 11:44 Dextrose (Dextrose 50% 50ML Syringe) 25-50ML OF 50% DW IV FOR... UD PRN IV 03/01/17 11:45 03/31/17 11:44 Glucagon (Glucagon Inj) 1 mg UD PRN SQ 03/01/17 11:45 03/31/17 11:44 Insulin Glargine ([place] Solostar) 45 unit DAILY SC 03/03/17 09:00 04/02/17 08:59 03/04/17 07:46 45 UNIT Calcium Acetate (Phoslo Cap) 1,334 mg UD PRN PO 03/03/17 11:45 04/02/17 11:44 03/03/17 19:51 1,334 MG Calcium Acetate (Phoslo Cap) 2,668 mg TIDM PO 03/03/17 11:30 04/02/17 11:29 03/04/17 07:44 2,668 MG Sodium Chloride ([place] Nasal Cut Off) 2 sprays PRN PRN NA 03/03/17 10:00 04/02/17 09:59 Ketoconazole (Nizoral 2% Crm) 1 appln BID EXT 03/03/17 21:00 03/13/17 20:59 03/04/17 07:44 1 APPLN Miscellaneous Information (Order Awaiting Action) 1 ea QS N/A 03/03/17 16:00 04/02/17 15:59 Amoxicillin (Amoxil Cap) 500 mg HS PO 03/03/17 21:00 03/13/17 20:59 03/03/17 19:49 500 MG Doxycycline Hyclate (Vibramycin Cap) 100 mg BID PO 03/03/17 21:00 03/13/17 20:59 03/04/17 07:45 100 MG Impression (1) ESRD (end stage renal disease) on dialysis Mr. Corky Cabrera is a 71-year-old male with ESRD on HD admitted with weakness, shortness of breath, chills and hand pain. He has been started on antibiotic therapy for a soft tissue infection of the finger. Volume status and respiratory complaints improved with UF. Volume status currently appropriate. Patient has chronic hypotension and remains asymptomatic. Recommendations ESRD: -- HD MWF. -- Typical treatment 4.5 hrs, Opti 200, Qb 450, Qd 800, 2K/2 Ca Anemia: -- [place] [address] QHD -- Check CBC on Monday prior to HD CKD/MBD: -- Phoslo QAC Afib and diastolic CHF: -- Rate controlled -- BP and volume status acceptable ID: -- Medications appropriate for ESRD
--- NOTE | 2017-03-04 10:03 | Hospitalist Progress Note ---
Hospitalist Progress Note Date of Service March 04, 2017. (Randell Vásquez, ZURI) Subjective Pt evaluation today including: conversation w/ patient, physical exam, lab review, review of inpatient medication list Pain: denies any acute pain PO Intake: tolerating PO Voiding: no voiding problems feels shortness of breath is at about baseline still very weak no fever or chills no chest pain Constitutional: No chills, No fatigue, No fever, No problem reported, No see HPI, No sweats, No weakness, No weight loss Eyes: No diplopia, No discharge, No eye pain, No problem reported, No redness, No see HPI, No worsening of vision ENT: No dental problems, No hearing loss, No nasal symptoms, No problem reported, No see HPI, No sore throat, No tinnitus, No trouble swallowing, No unusual epistaxis Respiratory: + cough, + dyspnea on exertion, + shortness of breath Cardiovascular: No PND, No chest pain, No claudication, No edema, No orthopnea, No palpitations, No problem reported, No see HPI Abdomen: No GI bleeding, No constipation, No diarrhea, No nausea, No pain, No problem reported, No see HPI, No vomiting Musculoskeletal: + problem reported (general weakness) Neurologic: + numbness/tingling (has peripheral neuropathy), + weakness Skin: + problem reported (bilateral leg dressing and left finger dressing) ( Randell Vásquez, ZURI) Medications reviewed (Randell Vásquez, ZURI) Objective Vital Signs Date Time Temp Pulse Resp B/P Pulse Ox O2 Delivery O2 Flow Rate FiO2 03/04/17 08:00 36.5 76 20 86/38 98 Room Air 03/04/17 08:00 99 Nasal Cannula 4.0 03/04/17 04:20 36.8 62 18 101/61 99 Nasal Cannula 4.0 03/04/17 04:00 Nasal Cannula 4.0 03/04/17 00:04 37.1 76 19 92/56 99 Nasal Cannula 4.0 03/03/17 23:59 Nasal Cannula 4.0 03/03/17 20:00 Nasal Cannula 4.0 03/03/17 19:33 37.6 79 18 90/39 98 Nasal Cannula 4.0 03/03/17 16:00 Nasal Cannula 4.0 03/03/17 13:00 Nasal Cannula 4.0 03/03/17 12:33 36.5 81 76/49 03/03/17 12:15 81 77/43 03/03/17 12:00 36.7 82 22 79/41 98 Nasal Cannula 4.0 03/03/17 12:00 81 77/45 03/03/17 11:45 83 74/43 03/03/17 11:30 82 68/41 03/03/17 11:15 81 69/39 03/03/17 11:00 88 58/43 03/03/17 10:45 83 72/42 03/03/17 10:30 81 78/41 03/03/17 10:15 88 78/53 03/03/17 10:00 82 75/43 (Randell Vásquez, ZURI) Physical Exam Eyes: normal inspection ENT: hearing grossly normal, pharynx normal Neck: supple, no JVD Respiratory/Chest: chest non-tender, no respiratory distress, + decreased breath sounds Cardiovascular: regular rate, rhythm, no JVD, + systolic murmur Abdomen: normal bowel sounds, non tender (obese - exam limited), soft Extremities: no calf tenderness, + pedal edema (plus 1 with venous stasis discoloration) Neurologic/Psychiatric: alert, normal mood/affect, oriented x 3 Skin: normal color, warm/dry (Randell Vásquez, QUILL CLEANER) Laboratory Results Last 24 Hours Test 03/03/17 12:59 03/03/17 16:47 03/03/17 19:47 03/04/17 06:33 Bedside Glucose 136 mg/dl 160 mg/dl 123 mg/dl 115 mg/dl Test 03/04/17 07:53 White Blood Count 6.81 K/uL Red Blood Count 3.82 M/uL Hemoglobin 10.5 g/dL Hematocrit 35.5 % Mean Corpuscular Volume 92.9 fL Mean Corpuscular Hemoglobin 27.5 pg Mean Corpuscular Hemoglobin Concent 29.6 g/dl Platelet Count 239 K/uL Mean Platelet Volume 9.5 fL Neutrophils (%) (Auto) 75.5 % Lymphocytes (%) (Auto) 11.9 % Monocytes (%) (Auto) 6.5 % Eosinophils (%) (Auto) 5.4 % Basophils (%) (Auto) 0.4 % Neutrophils # (Auto) 5.14 K/uL Lymphocytes # (Auto) 0.81 K/uL Monocytes # (Auto) 0.44 K/uL Eosinophils # (Auto) 0.37 K/uL Basophils # (Auto) 0.03 K/uL RDW Standard Deviation 62.7 fL RDW Coefficient of Variation 18.4 % Immature Granulocyte % (Auto) 0.3 % Immature Granulocyte # (Auto) 0.02 K/uL Prothrombin Time 31.6 SECONDS Prothromb Time International Ratio 2.8 (Randell Vásquez ., [employer]LL CLEANER) Assessment and Plan 71 yo male with PMHx of chronic diastolic CHF, diabetes type 2 with peripheral neuropathy, atrial fibrillation on coumadin, ESRD on HD MWF, obstructive sleep apnea, chronically on 4 L O2 and not on CPAP, PVD, and bilateral lower extremity edema with chronic wounds, morbid obesity. 1. SIRS with left second digit cellulitis/wound - improving - WBC normal, afebrile. C&S available. - coag negative staph and enterococcus faecalis. Yesterday started amoxicillin to cover enterococcus faecalis and doxy for staph coag neg - remains afebrile - WBC normal 2. ambulatory dysfunction/weakness - PT/OT - still feels weak 3. Acute on chronic diastolic CHF, stable at this time S/P pacemaker insertion from December 2016 - Cont ASA 81 mg and Simvastatin 40 mg daily - not on diuretics at home 4. End-stage renal disease on HD - Normal scheduled HD is on --, nephrology on board, plans to take the patient for dialysis today. - Appreciate nephrology recs, cont dialysis ,, 5. Hypotension - has history of autonomic dysregulation. Has been on midodrin in the past. Pressures are mainly in the 80 to 110s systolic. - this is chronic 6. Atrial fibrillation - Continue patient on Coumadin 5 mg every afternoon - INR currently therapeutic 7. Obstructive sleep apnea - Patient wears 4 L of O2 chronically, continue, patient reports he does not wear CPAP although this has been documented on previous discharge summary. 8. Diabetes mellitus type 2 - stable, continue long acting with SSI 9. DVT ppx: Teds, SCDs and Coumadin 10. CODE STATUS: Full code 11. Disposition - Medically stable. Plan is for [facility] [place] Monday. No beds until then. Will get dialysis Monday. Transfer to general medical floor. Continued [facility] stay due to: other (pt/ot) Discharge planning: longterm facility (Randell Vásquez ., ZURI) Attending Attestation: Chart reviewed in detail. I agree with the hurt components of ZURI Vásquez's documentation. Tin Coronado MD (Tin Coronado MD)
[2017-03-04] MEDS: WARFARIN SOD 5 MG TAB PO SCH (16:05)
[2017-03-04] MEDS: CALCIUM ACETATE 667MG GELCAP PO PRN (20:49)
[2017-03-04] MEDS: SIMVASTATIN 40 MG TAB PO SCH (20:50)
[2017-03-04] MEDS: AMOXICILLIN 500 MG CAP PO SCH (20:50)
[2017-03-05] MEDS: LEVOTHYROXINE 25 MCG TAB PO SCH (06:40)
[2017-03-05 07:55] LABS: HEMATOCRIT 32.3 % (42-52); MEAN CELL VOLUME 91.8 fL (80-100); MEAN CORPUSCULAR HEMOGLOBIN 28.1 pg (25-34); MEAN CORPUSCULAR HGB CONC 30.7 g/dl (32-36); MEAN PLATELET VOLUME 9.3 fL (7.4-10.4); PLATELET COUNT 243 K/uL (130-400); RED BLOOD COUNT 3.52 M/uL (4.7-6.1); WHITE BLOOD COUNT 7.34 K/uL (4.8-10.8)
[2017-03-05 08:00] VITALS: BP 101/64; PULSE 66; TEMP 36.6; O2SAT 100
[2017-03-05 08:01] LABS: INR 2.5 (0.9-1.1); PROTHROMBIN TIME (PATIENT) 27.4 SECONDS (9.0-12.0)
[2017-03-05] MEDS: CALCIUM ACETATE 667MG GELCAP PO SCH ×3 (08:01→16:52)
[2017-03-05] MEDS: POLYETHYLENE (MIRALAX) 17 GM PACK PO SCH (08:01)
[2017-03-05] MEDS: GABAPENTIN 100 MG CAP PO SCH (08:04)
[2017-03-05] MEDS: ASPIRIN 81 MG ECTAB PO SCH (08:04)
[2017-03-05] MEDS: ALLOPURINOL 100 MG TAB PO SCH (08:04)
[2017-03-05] MEDS: DOXYCYCLINE HYCLATE 100 MG CAP PO SCH ×2 (08:04→20:17)
[2017-03-05] MEDS: KETOCONAZOLE 2% CR 15 GM TUBE EXT SCH ×2 (08:05→20:16)
[2017-03-05 08:08] VITALS: BP 181/70; PULSE 75; TEMP 36.8; O2SAT 93
[2017-03-05] MEDS: INSULIN ASPART 100 UNITS/ML 3 ML PEN SC SCH ×4 (08:11→20:22)
[2017-03-05] MEDS: INSULIN GLARGINE 300 UNITS/ML INJ SC SCH (08:12)
[2017-03-05 08:33] LABS: BUN/CREATININE RATIO 10.3 (10-20); CALCIUM 8.5 mg/dl (8.5-10.1); CREATININE 8.3 mg/dl (0.60-1.40); POTASSIUM 5.6 mmol/L (3.5-5.1)
--- NOTE | 2017-03-05 11:57 | Nephrology Progress Note ---
Nephrology Progress Note Date of Service March 05, 2017. Chief Complaint ESRD Subjective No acute events overnight. Corky was sleeping in his recliner this morning but arouse easily and denied any complaints. Strength continues to improve. He denies dyspnea at rest. Activity tolerance improving. He denies chest pain or palpitations. Activity tolerance is good. No fevers or chills. Review of Systems A complete review of systems was performed. Pertinent positives are noted above. All other systems are negative. Vital Signs Last 8 Hrs Date Time Temp Pulse Resp B/P Pulse Ox O2 Delivery O2 Flow Rate FiO2 03/05/17 08:08 36.8 75 18 93 Nasal Cannula 4.0 03/05/17 08:00 36.6 66 20 101/64 100 Nasal Cannula 4.0 03/05/17 08:00 Nasal Cannula 4.0 Last Recorded Weight Weight (Kilograms): 147.500 Physical Exam General Appearance: no apparent distress, + obese Head: normocephalic, atraumatic Eyes: normal inspection, sclerae normal ENT: normal ENT inspection, pharynx normal Neck: supple, no JVD Respiratory/Chest: lungs clear, no respiratory distress, no accessory muscle use Cardiovascular: no gallop, + irregularly irregular Abdomen/GI: non tender, soft Extremities/Musculoskelatal: normal inspection, + pedal edema, + pertinent finding (AVF with thrill and bruit) Neurologic/Psych: alert, normal mood/affect Family History Patient reports no known family medical history. Social History Smoking Status: Never smoker Smokeless Tobacco Use: No Alcohol Use: none Drug Use: none Marital Status: Housing Status: lives with family Occupation: retired Laboratory Results Past 24 Hours 03/05/17 07:42 03/05/17 07:42 Test 03/04/17 17:08 03/04/17 19:45 03/05/17 07:42 Bedside Glucose 138 mg/dl (70-99) 165 mg/dl (70-99) 153 mg/dl (70-99) Red Blood Count 3.52 M/uL (4.7-6.1) Mean Corpuscular Volume 91.8 fL (80-100) Mean Corpuscular Hemoglobin 28.1 pg (25-34) Mean Corpuscular Hemoglobin Concent 30.7 g/dl (32-36) RDW Standard Deviation 63.2 fL (36.4-46.3) RDW Coefficient of Variation 18.5 % (11.5-14.5) Mean Platelet Volume 9.3 fL (7.4-10.4) Prothrombin Time 27.4 SECONDS (9.0-12.0) Prothromb Time International Ratio 2.5 (0.9-1.1) Anion Gap 10.0 mmol/L (3-11) Est Creatinine Clear Calc Drug Dose 11.9 ml/min Estimated GFR () 6.8 Estimated GFR (Non- 5.8 BUN/Creatinine Ratio 10.3 (10-20) Calcium Level 8.5 mg/dl (8.5-10.1) Allergies Coded Allergies: No Known Allergies (Verified , 03/01/17) Medications Current Inpatient Medications Medications (Trade) Dose Ordered Sig/[place] Route Start Time Stop Time Status Last Admin Dose Admin Allopurinol (Zyloprim Tab) 100 mg DAILY PO 03/02/17 09:00 04/01/17 08:59 03/05/17 08:04 100 MG Aspirin (Ecotrin Tab) 81 mg DAILY PO 03/02/17 09:00 04/01/17 08:59 03/05/17 08:04 81 MG Gabapentin (Neurontin Cap) 100 mg DAILY PO 03/01/17 11:45 03/31/17 11:44 03/05/17 08:04 100 MG Levothyroxine Sodium (Synthroid Tab) 25 mcg DAILYBB PO 03/02/17 06:00 04/01/17 05:59 03/05/17 06:40 25 MCG Polyethylene (Miralax Powder Packet) 17 gm QAM PO 03/02/17 09:00 04/01/17 08:59 03/05/17 08:01 17 GM Simvastatin (Zocor Tab) 40 mg QPM PO 03/01/17 21:00 03/31/17 20:59 03/04/17 20:50 40 MG Warfarin Sodium (Coumadin Tab) 5 mg DAILY@1600 PO 03/01/17 16:00 03/31/17 15:59 03/04/17 16:05 5 MG Miscellaneous Information (Order Awaiting Action) 1 ea QS N/A 03/01/17 16:00 03/31/17 15:59 03/04/17 16:04 1 EA Insulin Aspart (novoLOG ASPART) SLIDING SCALE If C... ACHS SC 03/01/17 16:15 03/31/17 16:14 03/05/17 08:11 9 UNITS Glucose (Glucose 40% Gel) 15-30 GRAMS 15 GRAMS... UD PRN PO 03/01/17 11:45 03/31/17 11:44 Glucose (Glucose Chew Tab) 4-8 Tablets 4 Tabl... UD PRN PO 03/01/17 11:45 03/31/17 11:44 Dextrose (Dextrose 50% 50ML Syringe) 25-50ML OF 50% DW IV FOR... UD PRN IV 03/01/17 11:45 03/31/17 11:44 Glucagon (Glucagon Inj) 1 mg UD PRN SQ 03/01/17 11:45 03/31/17 11:44 Insulin Glargine (Toujeo Solostar) 45 unit DAILY SC 03/03/17 09:00 04/02/17 08:59 03/05/17 08:12 45 UNIT Calcium Acetate (Phoslo Cap) 1,334 mg UD PRN PO 03/03/17 11:45 04/02/17 11:44 03/04/17 20:49 1,334 MG Calcium Acetate (Phoslo Cap) 2,668 mg TIDM PO 03/03/17 11:30 04/02/17 11:29 03/05/17 08:01 2,668 MG Sodium Chloride ([place] Nasal [place]) 2 sprays PRN PRN NA 03/03/17 10:00 04/02/17 09:59 Ketoconazole (Nizoral 2% Crm) 1 appln BID EXT 03/03/17 21:00 03/13/17 20:59 03/05/17 08:05 1 APPLN Miscellaneous Information (Order Awaiting Action) 1 ea QS N/A 03/03/17 16:00 04/02/17 15:59 03/04/17 16:04 1 EA Amoxicillin (Amoxil Cap) 500 mg HS PO 03/03/17 21:00 03/13/17 20:59 03/04/17 20:50 500 MG Doxycycline Hyclate (Vibramycin Cap) 100 mg BID PO 03/03/17 21:00 03/13/17 20:59 03/05/17 08:04 100 MG Impression (1) ESRD (end stage renal disease) on dialysis Mr. Corky Cabrera is a 71-year-old male with ESRD on HD admitted with weakness, shortness of breath, chills and hand pain. He has been started on doxycycline therapy for a soft tissue infection of the right index finger. Volume status and respiratory complaints improved with UF. Volume status currently appropriate. Patient has chronic hypotension and remains asymptomatic. Recommendations ESRD: -- HD MWF. -- Typical treatment 4.5 hrs, Opti 200, Qb 450, Qd 800, 2K/2 Ca. -- Blood pressure and volume status appropriate. Metabolic profile acceptable. -- Potassium restrict diet. Anemia: -- [place] [address] QHD. -- Check CBC tomorrow prior to HD. CKD/MBD: -- Phoslo QAC. Afib and diastolic CHF: -- Rate controlled. -- BP and volume status acceptable. ID: -- Medications appropriate for ESRD.
[2017-03-05 16:27] VITALS: BP 94/85; PULSE 66; TEMP 36.4; O2SAT 100
[2017-03-05] MEDS: WARFARIN SOD 5 MG TAB PO SCH (16:52)
--- NOTE | 2017-03-05 17:38 | Hospitalist Progress Note ---
Hospitalist Progress Note Date of Service March 05, 2017. (Randell Vásquez, ZURI) Subjective Pt evaluation today including: conversation w/ patient, physical exam, lab review, review of inpatient medication list Pain: no real complaints of pain - legs and finger are "sore" PO Intake: tolerating PO Voiding: no voiding problems biggest complaint is weakness, no fever or chills, no chest pain, some SOB with exertion, legs/feet are sore Constitutional: No chills, No fatigue, No fever, No problem reported, No see HPI, No sweats, No weakness, No weight loss Respiratory: + shortness of breath Cardiovascular: + edema Abdomen: No GI bleeding, No constipation, No diarrhea, No nausea, No pain, No problem reported, No see HPI, No vomiting Musculoskeletal: + problem reported (general weakness), No calf pain, No joint pain, No muscle pain, No see HPI, No swelling Neurologic: No balance problems, No memory loss, No numbness/tingling, No paralysis, No problem reported, No see HPI, No vertigo, No weakness Skin: + problem reported (right finger/leg dressings), No bleeding, No color change, No itch, No new/changing skin lesions, No rash, No see HPI ( Randell Vásquez CRNP) Medications reviewed (Randell Vásquez CRNP) Objective Vital Signs Date Time Temp Pulse Resp B/P Pulse Ox O2 Delivery O2 Flow Rate FiO2 03/05/17 16:27 36.4 66 21 94/85 100 Nasal Cannula 4.0 03/05/17 16:15 Nasal Cannula 4.0 03/05/17 08:08 36.8 75 18 93 Nasal Cannula 4.0 03/05/17 08:00 36.6 66 20 101/64 100 Nasal Cannula 4.0 03/05/17 08:00 Nasal Cannula 4.0 03/05/17 01:45 Nasal Cannula 4.0 03/04/17 23:18 37.0 75 20 90/50 98 Nasal Cannula 4.0 03/04/17 19:58 98 Nasal Cannula 4.0 (Randell Vásquez CRNP) Physical Exam General Appearance: no apparent distress Eyes: sclerae normal ENT: hearing grossly normal, pharynx normal Neck: supple, no JVD Respiratory/Chest: + decreased breath sounds Cardiovascular: regular rate, rhythm, + systolic murmur Abdomen: normal bowel sounds, non tender, soft (obese) Extremities: + pertinent finding (bilateral legs with venous stasis discoloration - dressings are dry and intact) Neurologic/Psychiatric: no motor/sensory deficits, alert, oriented x 3 Skin: + pertinent finding (right pointer finger/BLE dressing dry and intact) (Randell Vásquez ., PAPER SALES REPRESENTATIVE) Laboratory Results Last 24 Hours Test 03/04/17 19:45 03/05/17 07:42 03/05/17 11:48 03/05/17 16:47 Bedside Glucose 165 mg/dl 153 mg/dl 223 mg/dl 159 mg/dl White Blood Count 7.34 K/uL Red Blood Count 3.52 M/uL Hemoglobin 9.9 g/dL Hematocrit 32.3 % Mean Corpuscular Volume 91.8 fL Mean Corpuscular Hemoglobin 28.1 pg Mean Corpuscular Hemoglobin Concent 30.7 g/dl RDW Standard Deviation 63.2 fL RDW Coefficient of Variation 18.5 % Platelet Count 243 K/uL Mean Platelet Volume 9.3 fL Prothrombin Time 27.4 SECONDS Prothromb Time International Ratio 2.5 Sodium Level 133 mmol/L Potassium Level 5.6 mmol/L Chloride Level 94 mmol/L Carbon Dioxide Level 29 mmol/L Anion Gap 10.0 mmol/L Blood Urea Nitrogen 84 mg/dl Creatinine 8.30 mg/dl Est Creatinine Clear Calc Drug Dose 11.9 ml/min Estimated GFR () 6.8 Estimated GFR (Non- 5.8 BUN/Creatinine Ratio 10.3 Random Glucose 155 mg/dl Calcium Level 8.5 mg/dl (Randell Vásquez ., PAPER SALES REPRESENTATIVE) Assessment and Plan 71 yo male with PMHx of chronic diastolic CHF, diabetes type 2 with peripheral neuropathy, atrial fibrillation on Coumadin, ESRD on HD MWF, obstructive sleep apnea, chronically on 4 L O2 and not on CPAP, PVD, and bilateral lower extremity edema with chronic wounds, morbid obesity. 1. SIRS with left second digit cellulitis/wound - improving - WBC normal, afebrile. - coag negative staph and enterococcus faecalis. amoxicillin to cover enterococcus faecalis and doxy for staph coag neg - remains afebrile - WBC normal 2. ambulatory dysfunction/weakness - PT/OT - still feels weak 3. Acute on chronic diastolic CHF, stable at this time - S/P pacemaker insertion from December 2016 - Cont ASA 81 mg and Simvastatin 40 mg daily - not on diuretics at home 4. End-stage renal disease on HD - Normal scheduled HD is on --, nephrology on board - Appreciate nephrology recs, cont dialysis M,,F 5. Hypotension - has history of autonomic dysregulation. Has been on midodrin in the past. Pressures are mainly in the 80 to 110s systolic. - this is chronic 6. Atrial fibrillation - Continue patient on Coumadin 5 mg every afternoon - INR currently therapeutic 7. Obstructive sleep apnea - Patient wears 4 L of O2 chronically, continue, patient reports he does not wear CPAP although this has been documented on previous discharge summary. 8. Diabetes mellitus type 2 - stable, continue long acting with SSI 9. DVT prophylaxis: Teds, SCDs and Coumadin 10. CODE STATUS: Full code 11. Disposition - Medically stable. Plan is for [facility] Monday. No beds until then. Will get dialysis Monday. Continued [facility] stay due to: ambulation difficulties Discharge planning: residential facility (Randell Vásquez ., ZURI) Attending Attestation: Chart reviewed in detail. I agree with the hurt components of ZURI Vásquez's documentation. Tin Coronado MD (Tin Coronado MD)
[2017-03-05] MEDS: AMOXICILLIN 500 MG CAP PO SCH (20:17)
[2017-03-05] MEDS: SIMVASTATIN 40 MG TAB PO SCH (20:18)
[2017-03-05] MEDS: CALCIUM ACETATE 667MG GELCAP PO PRN (20:24)
[2017-03-05 22:27] VITALS: BP 96/57; PULSE 70; TEMP 36.5; O2SAT 97
[2017-03-06] VITALS (21 sets, daily range): BP systolic 74–97; BP diastolic 37–57; PULSE 58–67; TEMP 36.3–36.7; O2SAT 99
[2017-03-06] MEDS: LEVOTHYROXINE 25 MCG TAB PO SCH (04:37)
[2017-03-06 07:06] LABS: HEMATOCRIT 34.5 % (42-52); MEAN CELL VOLUME 92.2 fL (80-100); MEAN CORPUSCULAR HEMOGLOBIN 27.3 pg (25-34); MEAN CORPUSCULAR HGB CONC 29.6 g/dl (32-36); PLATELET COUNT 281 K/uL (130-400); RED BLOOD COUNT 3.74 M/uL (4.7-6.1); WHITE BLOOD COUNT 7.84 K/uL (4.8-10.8)
[2017-03-06] MEDS: POLYETHYLENE (MIRALAX) 17 GM PACK PO SCH (07:22)
[2017-03-06] MEDS: CALCIUM ACETATE 667MG GELCAP PO SCH ×3 (07:23→16:55)
[2017-03-06] MEDS: ASPIRIN 81 MG ECTAB PO SCH (07:26)
[2017-03-06] MEDS: GABAPENTIN 100 MG CAP PO SCH (07:26)
[2017-03-06] MEDS: ALLOPURINOL 100 MG TAB PO SCH (07:26)
[2017-03-06] MEDS: DOXYCYCLINE HYCLATE 100 MG CAP PO SCH ×2 (07:26→20:42)
[2017-03-06] MEDS: INSULIN ASPART 100 UNITS/ML 3 ML PEN SC SCH ×4 (07:32→20:50)
[2017-03-06] MEDS: INSULIN GLARGINE 300 UNITS/ML INJ SC SCH (07:33)
[2017-03-06] MEDS ORDERED: EPOETIN ALFA 10,000 UNITS/ML VIAL IV SCH (08:00)
[2017-03-06 08:02] LABS: BUN/CREATININE RATIO 10.7 (10-20); CALCIUM 7.9 mg/dl (8.5-10.1); POTASSIUM 6.6 mmol/L (3.5-5.1)
--- NOTE | 2017-03-06 10:56 | Dialysis Progress Note ---
Hemodialysis Note Date of Service March 06, 2017. Chief Complaint ESRD Subjective No acute events overnight. Mr. Cabrera was seen and evaluated during hemodialysis this morning. He is tolerating hemodialysis well and denies any acute complaints. Corky describes some increase in chronic lower back discomfort associated with resting in bed. He is breathing comfortably. He denies any fevers or chills. He is looking forward to potential discharge tomorrow AM. Review of Systems A complete review of systems was performed. Pertinent positives are noted above. All other systems are negative. Vital Signs Last 8 Hrs Date Time Temp Pulse Resp B/P Pulse Ox O2 Delivery O2 Flow Rate FiO2 03/06/17 10:30 59 85/54 03/06/17 10:15 60 80/45 03/06/17 10:00 59 83/38 03/06/17 09:45 61 76/41 03/06/17 09:30 61 78/41 03/06/17 09:15 59 85/44 03/06/17 09:00 60 91/43 03/06/17 08:47 65 95/49 03/06/17 08:41 36.6 65 94/49 03/06/17 08:00 Nasal Cannula 4.0 03/06/17 06:30 36.7 63 20 92/56 99 Nasal Cannula 5.0 I & O 24-Hour Column 03/06/17 08:00 Intake Total 150 ml Balance 150 ml Last Recorded Weight Weight (Kilograms): 149.600 Physical Exam General Appearance: no apparent distress, + obese Head: normocephalic, atraumatic Eyes: normal inspection, sclerae normal ENT: normal ENT inspection, pharynx normal Neck: supple, + pertinent finding (thick) Respiratory/Chest: lungs clear, no respiratory distress, no accessory muscle use Cardiovascular: regular rate, rhythm, no gallop, + systolic murmur Abdomen/GI: non tender, soft Extremities/Musculoskelatal: normal inspection, + pedal edema, + pertinent finding (AVF with Qb 400, 15 g needle) Neurologic/Psych: alert, oriented x 3 Social History Smoking Status: Never smoker Smokeless Tobacco Use: No Alcohol Use: none Drug Use: none Marital Status: Housing Status: lives with family Occupation: retired Laboratory Results Past 24 Hours 03/06/17 06:18 03/06/17 06:18 Test 03/05/17 11:48 03/05/17 16:47 03/05/17 20:08 03/06/17 06:18 Bedside Glucose 223 mg/dl (70-99) 159 mg/dl (70-99) 194 mg/dl (70-99) Red Blood Count 3.74 M/uL (4.7-6.1) Mean Corpuscular Volume 92.2 fL (80-100) Mean Corpuscular Hemoglobin 27.3 pg (25-34) Mean Corpuscular Hemoglobin Concent 29.6 g/dl (32-36) RDW Standard Deviation 61.7 fL (36.4-46.3) RDW Coefficient of Variation 18.4 % (11.5-14.5) Mean Platelet Volume 10.0 fL (7.4-10.4) Anion Gap 13.0 mmol/L (3-11) Est Creatinine Clear Calc Drug Dose 9.0 ml/min Estimated GFR () 4.8 Estimated GFR (Non- 4.2 BUN/Creatinine Ratio 10.7 (10-20) Calcium Level 7.9 mg/dl (8.5-10.1) Phosphorus Level 8.0 mg/dl (2.5-4.9) Albumin 3.2 gm/dl (3.4-5.0) Test 03/06/17 06:25 Bedside Glucose 173 mg/dl (70-99) Allergies Coded Allergies: No Known Allergies (Verified , 03/01/17) Medications Current Inpatient Medications Medications (Trade) Dose Ordered Sig/[place] Route Start Time Stop Time Status Last Admin Dose Admin Allopurinol (Zyloprim Tab) 100 mg DAILY PO 03/02/17 09:00 04/01/17 08:59 03/06/17 07:26 100 MG Aspirin (Ecotrin Tab) 81 mg DAILY PO 03/02/17 09:00 04/01/17 08:59 03/06/17 07:26 81 MG Gabapentin (Neurontin Cap) 100 mg DAILY PO 03/01/17 11:45 03/31/17 11:44 03/06/17 07:26 100 MG Levothyroxine Sodium (Synthroid Tab) 25 mcg DAILYBB PO 03/02/17 06:00 04/01/17 05:59 03/06/17 04:37 25 MCG Polyethylene (Miralax Powder Packet) 17 gm QAM PO 03/02/17 09:00 04/01/17 08:59 03/06/17 07:22 17 GM Simvastatin (Zocor Tab) 40 mg QPM PO 03/01/17 21:00 03/31/17 20:59 03/05/17 20:18 40 MG Warfarin Sodium (Coumadin Tab) 5 mg DAILY@1600 PO 03/01/17 16:00 03/31/17 15:59 03/05/17 16:52 5 MG Miscellaneous Information (Order Awaiting Action) 1 ea QS N/A 03/01/17 16:00 03/31/17 15:59 03/04/17 16:04 1 EA Insulin Aspart (novoLOG ASPART) SLIDING SCALE If C... ACHS SC 03/01/17 16:15 03/31/17 16:14 03/06/17 07:32 12 UNITS Glucose (Glucose 40% Gel) 15-30 GRAMS 15 GRAMS... UD PRN PO 03/01/17 11:45 03/31/17 11:44 Glucose (Glucose Chew Tab) 4-8 Tablets 4 Tabl... UD PRN PO 03/01/17 11:45 03/31/17 11:44 Dextrose (Dextrose 50% 50ML Syringe) 25-50ML OF 50% DW IV FOR... UD PRN IV 03/01/17 11:45 03/31/17 11:44 Glucagon (Glucagon Inj) 1 mg UD PRN SQ 03/01/17 11:45 03/31/17 11:44 Insulin Glargine (Toujeo Solostar) 45 unit DAILY SC 03/03/17 09:00 04/02/17 08:59 03/06/17 07:33 45 UNIT Calcium Acetate (Phoslo Cap) 1,334 mg UD PRN PO 03/03/17 11:45 04/02/17 11:44 03/05/17 20:24 1,334 MG Calcium Acetate (Phoslo Cap) 2,668 mg TIDM PO 03/03/17 11:30 04/02/17 11:29 03/06/17 07:23 2,668 MG Sodium Chloride ([place] Nas[place]) 2 sprays PRN PRN NA 03/03/17 10:00 04/02/17 09:59 Ketoconazole (Nizoral 2% Crm) 1 appln BID EXT 03/03/17 21:00 03/13/17 20:59 03/05/17 20:16 1 APPLN Miscellaneous Information (Order Awaiting Action) 1 ea QS N/A 03/03/17 16:00 04/02/17 15:59 03/04/17 16:04 1 EA Amoxicillin (Amoxil Cap) 500 mg HS PO 03/03/17 21:00 03/13/17 20:59 03/05/17 20:17 500 MG Doxycycline Hyclate (Vibramycin Cap) 100 mg BID PO 03/03/17 21:00 03/13/17 20:59 03/06/17 07:26 100 MG Epoetin Ramón (Procrit Inj) 10,000 units MoWeFr@0800 IV 03/06/17 08:00 04/05/17 07:59 03/06/17 10:44 10,000 UNITS Impression (1) ESRD (end stage renal disease) on dialysis Mr. Corky Cabrera is a 71-year-old male with ESRD on HD admitted with weakness, shortness of breath, chills and hand pain. He has been started on doxycycline for a soft tissue infection of the right index finger. Volume status and respiratory complaints improved with UF. Patient has chronic hypotension and remains asymptomatic. He is tolerating UF goal 6 kg to EDW. Recommendations ESRD: -- HD MWF. Qb 400. -- UF goal 6 kg. BP appropriate. -- HD 4.5 hrs, Opti 200, Qb 450, Qd 800, 2K/2 Ca. -- Potassium restrict diet. Anemia: -- Procrit 83884 QHD. CKD/MBD: -- Phoslo QAC. -- Dietary restriction. Afib and diastolic CHF: -- Rate controlled. ID: -- Medications appropriate for ESRD.
[2017-03-06] MEDS: KETOCONAZOLE 2% CR 15 GM TUBE EXT SCH ×2 (13:46→20:43)
[2017-03-06] MEDS: WARFARIN SOD 5 MG TAB PO SCH (16:55)
[2017-03-06 18:29] LABS: BUN/CREATININE RATIO 8.4 (10-20); CALCIUM 7.8 mg/dl (8.5-10.1); CREATININE 6.8 mg/dl (0.60-1.40); POTASSIUM 4.8 mmol/L (3.5-5.1)
--- NOTE | 2017-03-06 18:59 | Progress Note ---
Subjective Date of Service: March 06, 2017. Subjective Pt evaluation today including: conversation w/ patient, physical exam, chart review, lab review, review of inpatient medication list finger feeling better awaiting placement seen during HD - right at the end - feeling OK Problem List Medical Problems: (1) Ambulatory dysfunction Status: Acute (2) Hyperkalemia Status: Acute (3) Leukocytosis Status: Acute (4) Superficial injury of right index finger with infection Status: Acute (5) Ulcers of both lower extremities Status: Acute Review of Systems ros otherwise negative except for as above Objective Vital Signs Date Time Temp Pulse Resp B/P Pulse Ox O2 Delivery O2 Flow Rate FiO2 03/06/17 15:11 36.3 67 20 81/41 99 03/06/17 12:55 36.5 60 77/43 03/06/17 12:45 60 77/43 03/06/17 12:30 61 74/37 03/06/17 12:15 60 78/47 03/06/17 12:00 59 97/50 03/06/17 11:45 60 76/44 03/06/17 11:30 61 93/57 03/06/17 11:15 58 91/56 03/06/17 11:00 59 95/51 03/06/17 10:45 60 86/55 03/06/17 10:30 59 85/54 03/06/17 10:15 60 80/45 03/06/17 10:00 59 83/38 03/06/17 09:45 61 76/41 03/06/17 09:30 61 78/41 03/06/17 09:15 59 85/44 03/06/17 09:00 60 91/43 03/06/17 08:47 65 95/49 03/06/17 08:41 36.6 65 94/49 03/06/17 08:00 Nasal Cannula 4.0 03/06/17 06:30 36.7 63 20 92/56 99 Nasal Cannula 5.0 03/06/17 00:00 Nasal Cannula 4.0 03/05/17 22:27 36.5 70 20 96/57 97 Nasal Cannula 5.0 03/05/17 19:20 Nasal Cannula 4.0 Physical Exam General Appearance: no apparent distress Eyes: EOMI ENT: hearing grossly normal Neck: trachea midline Respiratory/Chest: no respiratory distress, no accessory muscle use Extremities: normal range of motion 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/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, alert Laboratory Results Last 24 Hours Test 03/05/17 20:08 03/06/17 06:18 03/06/17 06:25 03/06/17 11:48 Bedside Glucose 194 mg/dl 173 mg/dl 145 mg/dl White Blood Count 7.84 K/uL Red Blood Count 3.74 M/uL Hemoglobin 10.2 g/dL Hematocrit 34.5 % Mean Corpuscular Volume 92.2 fL Mean Corpuscular Hemoglobin 27.3 pg Mean Corpuscular Hemoglobin Concent 29.6 g/dl RDW Standard Deviation 61.7 fL RDW Coefficient of Variation 18.4 % Platelet Count 281 K/uL Mean Platelet Volume 10.0 fL Sodium Level 134 mmol/L Potassium Level 6.6 mmol/L Chloride Level 95 mmol/L Carbon Dioxide Level 26 mmol/L Anion Gap 13.0 mmol/L Blood Urea Nitrogen 107 mg/dl Creatinine 11.00 mg/dl Est Creatinine Clear Calc Drug Dose 9.0 ml/min Estimated GFR () 4.8 Estimated GFR (Non- 4.2 BUN/Creatinine Ratio 10.7 Random Glucose 153 mg/dl Calcium Level 7.9 mg/dl Phosphorus Level 8.0 mg/dl Albumin 3.2 gm/dl Test 03/06/17 16:28 03/06/17 17:53 Bedside Glucose 171 mg/dl Sodium Level 138 mmol/L Potassium Level 4.8 mmol/L Chloride Level 99 mmol/L Carbon Dioxide Level 30 mmol/L Anion Gap 9.0 mmol/L Blood Urea Nitrogen 58 mg/dl Creatinine 6.80 mg/dl Est Creatinine Clear Calc Drug Dose 14.6 ml/min Estimated GFR () 8.6 Estimated GFR (Non- 7.4 BUN/Creatinine Ratio 8.4 Random Glucose 169 mg/dl Calcium Level 7.8 mg/dl Assessment and Plan 71 yo male with PMHx of chronic diastolic CHF, diabetes type 2 with peripheral neuropathy, atrial fibrillation on Coumadin, ESRD on HD MWF, obstructive sleep apnea, chronically on 4 L O2 and not on CPAP, PVD, and bilateral lower extremity edema with chronic wounds, morbid obesity. 1. SIRS with left second digit cellulitis/wound - improving - coag negative staph and enterococcus faecalis. amoxicillin to cover enterococcus faecalis and doxy for staph coag neg - doing well 2. ambulatory dysfunction/weakness - PT/OT - still feels weak, for [facility] 3. Acute on chronic diastolic CHF, stable at this time - S/P pacemaker insertion from December 2016 - Cont ASA 81 mg and Simvastatin 40 mg daily - not on diuretics at home, appearing OK at end of HD 4. End-stage renal disease on HD - Normal scheduled HD is on --, nephrology on board - Appreciate nephrology recs, cont dialysis M,, 5. Hypotension - has history of autonomic dysregulation. Has been on midodrine in the past. Pressures are mainly in the 80 to 110s systolic. - this is chronic 6. Atrial fibrillation - Continue patient on Coumadin 5 mg every afternoon - INR currently therapeutic 7. Obstructive sleep apnea - Patient wears 4 L of O2 chronically, continue, patient reports he does not wear CPAP although this has been documented on previous discharge summary. 8. Diabetes mellitus type 2 - stable, continue long acting with SSI, sugars reasonable control 9. DVT prophylaxis: Teds, SCDs and Coumadin 10. hyperkalemia - HD. repeat K this PM (late addendum - K improved) 11. Disposition - Medically stable. Plan is for [facility] Monday. No beds until then. Continued [facility] stay due to: ambulation difficulties Discharge planning: half-way facility
[2017-03-06] MEDS: AMOXICILLIN 500 MG CAP PO SCH (20:42)
[2017-03-06] MEDS: SIMVASTATIN 40 MG TAB PO SCH (20:43)
[2017-03-06] MEDS: CALCIUM ACETATE 667MG GELCAP PO PRN (21:24)
[2017-03-07] VITALS: BP 91/50; PULSE 99; TEMP 36.8; O2SAT 96
[2017-03-07] MEDS: LEVOTHYROXINE 25 MCG TAB PO SCH (05:35)
[2017-03-07 06:44] LABS: BUN/CREATININE RATIO 9.3 (10-20); CALCIUM 8.1 mg/dl (8.5-10.1); POTASSIUM 5.6 mmol/L (3.5-5.1)
[2017-03-07 07:27] VITALS: BP 101/62; PULSE 69; TEMP 36.5; O2SAT 100
[2017-03-07] MEDS: POLYETHYLENE (MIRALAX) 17 GM PACK PO SCH (07:46)
[2017-03-07] MEDS: GABAPENTIN 100 MG CAP PO SCH (07:46)
[2017-03-07] MEDS: CALCIUM ACETATE 667MG GELCAP PO SCH ×3 (07:46→17:18)
[2017-03-07] MEDS: DOXYCYCLINE HYCLATE 100 MG CAP PO SCH ×2 (07:46→20:43)
[2017-03-07] MEDS: ALLOPURINOL 100 MG TAB PO SCH (07:47)
[2017-03-07] MEDS: ASPIRIN 81 MG ECTAB PO SCH (07:47)
[2017-03-07] MEDS: KETOCONAZOLE 2% CR 15 GM TUBE EXT SCH ×2 (07:47→20:50)
[2017-03-07] MEDS: INSULIN ASPART 100 UNITS/ML 3 ML PEN SC SCH ×4 (07:51→20:50)
[2017-03-07] MEDS: INSULIN GLARGINE 300 UNITS/ML INJ SC SCH (07:52)
[2017-03-07] MEDS ORDERED: SODIUM POLYST. SULF SUSP 15G/60ML PO ONE (08:15)
[2017-03-07] MEDS ORDERED: ONDANSETRON INJ 2 MG/ML 2 ML VIAL IV ONE (09:30)
--- NOTE | 2017-03-07 10:54 | NEPHROLOGY PROGRESS NOTE ---
DATE: 03/07/2017 SUBJECTIVE: Mr. Cabrera says that he is feeling relatively well. He is looking forward to being discharged to [facility] today. He denies being short of breath. He denies having any chest pain. He has had no shaking chills or fevers. He has had no night sweats. His appetite is quite good. He has no definite symptoms of uremia or volume overload. OBJECTIVE: GENERAL: On physical exam, Mr. Cabrera appears as an obese, late middle-aged gentleman of his stated age of 71. VITAL SIGNS: He is afebrile. His blood pressure 101/62, his pulse 69 and currently regular, respiratory rate 20, and his pulse ox 100% on 4 liters of oxygen via nasal cannula. SKIN: Shows normal skin turgor. He continues to show changes of venous stasis dermatitis on his lower extremities. He has scars from previous surgical procedures, most notably a scar in the left antecubital fossa from the creation of his AV fistula and multiple dialysis needle tract henry over the fistula. His right forefinger has a blister and some associated minimal erythema. LYMPHATICS: Show no evidence of lymphangitis or lymphadenopathy. HEAD: Grossly normal. EYES: Grossly normal. The ocular fundi were not examined. EARS, NOSE, MOUTH AND THROAT: Unremarkable. His oral mucous membranes are moist. NECK: Supple. I see no jugular venous distention, but the exam is limited by his body habitus. I hear no carotid bruit and there is no thyromegaly. CHEST: Shows elevated hemidiaphragms related to his body habitus. He has diminished breath sounds at the bases. He has no wheezes, rales or rhonchi. CARDIAC: Shows a current regular rhythm. He has a grade 2/6 systolic murmur at the base radiating toward the neck. ABDOMEN: Morbidly obese. It is nontender. There is no organomegaly or mass. EXTREMITIES: Show no cyanosis or clubbing. He has 1+ lower extremity edema associated with changes of venous stasis dermatitis and associated inflammation. There are multiple superficial skin lesions as well. Peripheral pulses are difficult to feel. He still has the blistering lesion of the right forefinger. NEUROLOGIC: Shows no lateralizing changes. LABORATORY DATA: Laboratory work from today shows a sodium of 136 mmol/L, potassium 5.6 mmol/L, chlorides 99 mmol/L, and CO2 content 29 mmol/L. His BUN is 75 and creatinine is 8.00. His random blood sugar was 141. His serum calcium was 8.1. ASSESSMENT: Mr. Cabrera appears to be doing reasonably well. Apparently, the plan is for him to be transferred to [facility] today assuming a bed is available. RECOMMENDATIONS: Upon transfer, continue all of his current medications. [facility] is familiar with his diet as well and will make outpatient arrangements for him to be dialyzed at [facility] in [place] according to his usual schedule. If a bed is not available and he remains here overnight, we will arrange for his dialysis in the morning.
--- NOTE | 2017-03-07 15:02 | PROGRESS NOTE ---
DATE: 03/03/2017 DATE: 03/03/2017. SUBJECTIVE: The patient is well known to the wound clinic and was recently seen for venous stasis ulcerations to both lower extremities. Today the patient also states that he developed a blister formation on the right index finger approximately 1 week ago, but is uncertain to its time of origin. The patient denies any known traumatic event. The patient denies any fever, chills or night sweats. The patient currently denies any systemic complaints. OBJECTIVE: GENERAL: The patient's vital signs were reviewed and found to be unremarkable. The patient is currently lying in hospital bed in no acute distress, alert and cooperative throughout the examination. EXTREMITIES: Reveal the presence of ulcerations to be noted on both lower extremities, right measuring 0.5 x 0.5 x 0.1 cm and the left measuring 0.9 x 1.6 x 0.1. But these measurements are significantly smaller than prior visit approximately 1 week ago. There is no active drainage, edema is chronic and present. There is no significant periwound erythema to this site noted. There is also blister formation present in the distal right index finger. There is some clear fluid present from the area that is reopened. There is no significant periwound erythema or edema. Range of motion appears intact. Distal neurovascular bundles intact. IMPRESSION: 1. Bilateral venous stasis ulcerations secondary to chronic venous insufficiency with improvement. 2. New blister formation, right index finger. PLAN: At this time, the index finger did require debridement. With the patient's permission and after the application of topical Xylocaine 4%, the blister was deroofed and the skin area was removed with scissors and forceps. There was no significant bleeding which occurred. No underlying slough was noted. The management following debridement was 3.4 x 2.5 x 0.1 cm. The sites will be dressed with Aquacel AG and gauze, changed on a daily basis. The patient will continue to be monitored during hospitalization and followed up in the outpatient setting upon discharge. This represented a nonexcisional debridement of less than 20 square cm to the right index finger.
[2017-03-07 15:19] VITALS: BP 92/49; PULSE 70; TEMP 36.4; O2SAT 100
[2017-03-07 16:20] VITALS: O2SAT 100
[2017-03-07] MEDS: WARFARIN SOD 5 MG TAB PO SCH (16:29)
--- NOTE | 2017-03-07 16:35 | Progress Note ---
Subjective Date of Service: March 07, 2017. Subjective Pt evaluation today including: conversation w/ patient, physical exam, chart review feeling about the same, finger doing better, notes he always runs a little hyperkalemic. still waiting on [facility] Problem List Medical Problems: (1) Ambulatory dysfunction Status: Acute (2) Hyperkalemia Status: Acute (3) Leukocytosis Status: Acute (4) Superficial injury of right index finger with infection Status: Acute (5) Ulcers of both lower extremities Status: Acute Review of Systems ros otherwise negative except for as above Objective Vital Signs Date Time Temp Pulse Resp B/P Pulse Ox O2 Delivery O2 Flow Rate FiO2 03/07/17 15:19 36.4 70 16 92/49 100 Nasal Cannula 5.0 03/07/17 07:45 Nasal Cannula 4.0 03/07/17 07:27 36.5 69 20 101/62 100 Nasal Cannula 4.0 03/07/17 00:00 Nasal Cannula 4.0 03/07/17 00:00 36.8 99 20 91/50 96 Nasal Cannula 4.0 Physical Exam General Appearance: no apparent distress Eyes: EOMI ENT: hearing grossly normal Neck: trachea midline Respiratory/Chest: no respiratory distress, no accessory muscle use 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 Skin: normal color, warm/dry Laboratory Results Last 24 Hours Test 03/06/17 17:53 03/06/17 20:33 03/07/17 05:08 03/07/17 07:12 Sodium Level 138 mmol/L 136 mmol/L Potassium Level 4.8 mmol/L 5.6 mmol/L Chloride Level 99 mmol/L 99 mmol/L Carbon Dioxide Level 30 mmol/L 29 mmol/L Anion Gap 9.0 mmol/L 8.0 mmol/L Blood Urea Nitrogen 58 mg/dl 75 mg/dl Creatinine 6.80 mg/dl 8.00 mg/dl Est Creatinine Clear Calc Drug Dose 14.6 ml/min 12.4 ml/min Estimated GFR () 8.6 7.1 Estimated GFR (Non- 7.4 6.1 BUN/Creatinine Ratio 8.4 9.3 Random Glucose 169 mg/dl 147 mg/dl Calcium Level 7.8 mg/dl 8.1 mg/dl Bedside Glucose 156 mg/dl 151 mg/dl Test 03/07/17 11:09 Bedside Glucose 200 mg/dl Assessment and Plan 71 yo male with PMHx of chronic diastolic CHF, diabetes type 2 with peripheral neuropathy, atrial fibrillation on Coumadin, ESRD on HD MWF, obstructive sleep apnea, chronically on 4 L O2 and not on CPAP, PVD, and bilateral lower extremity edema with chronic wounds, morbid obesity. 1. SIRS with left second digit cellulitis/wound - improving - coag negative staph and enterococcus faecalis. amoxicillin to cover enterococcus faecalis and doxy for staph coag neg - doing well, no need for changes at thsi time 2. ambulatory dysfunction/weakness - PT/OT - still feels weak, for [facility] 3. Acute on chronic diastolic CHF, stable at this time - S/P pacemaker insertion from December 2016 - Cont ASA 81 mg and Simvastatin 40 mg daily - not on diuretics at home, appearing OK at end of HD 4. End-stage renal disease on HD - Normal scheduled HD is on --, nephrology on board - Appreciate nephrology recs, cont dialysis ,, 5. Hypotension - has history of autonomic dysregulation. Has been on midodrine in the past. Pressures are mainly in the 80 to 110s systolic. - this is chronic 6. Atrial fibrillation - Continue patient on Coumadin 5 mg every afternoon - INR currently therapeutic 7. Obstructive sleep apnea - Patient wears 4 L of O2 chronically, continue, patient reports he does not wear CPAP although this has been documented on previous discharge summary. 8. Diabetes mellitus type 2 - stable, continue long acting with SSI, sugars reasonable control 9. DVT prophylaxis: Teds, SCDs and Coumadin 10. hyperkalemia - HD. 1 dose kayexalte, ongoing HD and monitoring 11. Disposition - Medically stable. hopefully [facility] by tomorrow 12. hypocalcemia/ESRD - check vitamin D. last one on record was ~13.5 Continued [facility] stay due to: ambulation difficulties Discharge planning: prison facility
[2017-03-07] MEDS: CALCIUM ACETATE 667MG GELCAP PO PRN (20:42)
[2017-03-07] MEDS: AMOXICILLIN 500 MG CAP PO SCH (20:43)
[2017-03-07] MEDS: SIMVASTATIN 40 MG TAB PO SCH (20:43)
[2017-03-07] MEDS ORDERED: EPOETIN ALFA 10,000 UNITS/ML VIAL IV. ONE (22:30)
[2017-03-07 23:12] VITALS: BP 98/58; PULSE 73; TEMP 37.1; O2SAT 97
[2017-03-08] VITALS (23 sets, daily range): BP systolic 75–102; BP diastolic 40–57; PULSE 59–73; TEMP 36.6; O2SAT 99
[2017-03-08] MEDS: LEVOTHYROXINE 25 MCG TAB PO SCH (05:52)
[2017-03-08 07:45] LABS: INR 1.7 (0.9-1.1); PROTHROMBIN TIME (PATIENT) 18.9 SECONDS (9.0-12.0)
[2017-03-08] MEDS: POLYETHYLENE (MIRALAX) 17 GM PACK PO SCH (07:46)
[2017-03-08] MEDS: CALCIUM ACETATE 667MG GELCAP PO SCH ×3 (07:46→14:24)
[2017-03-08] MEDS: KETOCONAZOLE 2% CR 15 GM TUBE EXT SCH (07:46)
[2017-03-08] MEDS: INSULIN ASPART 100 UNITS/ML 3 ML PEN SC SCH ×2 (07:50→11:49)
[2017-03-08] MEDS: INSULIN GLARGINE 300 UNITS/ML INJ SC SCH (07:50)
[2017-03-08] MEDS ORDERED: SODIUM CHLORIDE 0.9% 1000ML 1,000 ML IV PRN (08:00)
[2017-03-08] MEDS ORDERED: EPOETIN ALFA INJ 15,000 UNITS in SYRINGE 0 ML IV. SCH (08:00)
[2017-03-08 08:26] LABS: BUN/CREATININE RATIO 11.4 (10-20); CALCIUM 8.6 mg/dl (8.5-10.1)
[2017-03-08] MEDS: ASPIRIN 81 MG ECTAB PO SCH ×2 (08:26→14:24)
[2017-03-08] MEDS: ALLOPURINOL 100 MG TAB PO SCH ×2 (08:26→14:24)
[2017-03-08] MEDS: DOXYCYCLINE HYCLATE 100 MG CAP PO SCH ×2 (08:26→14:24)
[2017-03-08] MEDS: GABAPENTIN 100 MG CAP PO SCH ×3 (08:26→14:24)
[2017-03-08] MEDS ORDERED: WARFARIN SOD 2.5 MG TAB PO ONE (08:30)
[2017-03-08] MEDS ORDERED: DXY100 PO (08:54)
[2017-03-08] MEDS ORDERED: AMX500 PO (08:54)
--- NOTE | 2017-03-08 08:56 | Discharge Instructions ---
Discharge Instructions Date of Service March 08, 2017. Admission Reason for Admission: Acute Exacerbation Of Chf, Sirs Discharge Discharge Diagnosis / Problem: finger cellulitis Discharge Goals Goal(s): Increase independence, Improve disease control, Therapeutic intervention Activity Recommendations Activity Level: Assistance Required Therapies: Physical Therapy, Occupational Therapy . Additional Information Patient informed of condition: Yes Advance Directives: Yes DNR: No Level of Care: Skilled Communicable Disease: No Prognosis: Improving Instructions / Follow-Up Instructions / Follow-Up finger cellulitis - uncertain how much longer he'll need systemic antibiotics - wrote for 5 more days but will be based on progress/improvement ---ongoing follow up with Dr Tam/wound clinic ESRD - chronically hyperkalemic; continue to follow. ongoing HD Current Hospital Diet Patient's current hospital diet: Diabetes Type 2 Diet, Renal Diet Discharge Diet Recommended Diet: Diabetes Type 2 Diet, Renal Diet (with particular caution to potasium restriction) Pending Studies Studies pending at discharge: no Laboratory Results Lipid Panel Test 01/27/17 05:15 Range/Units Triglycerides Level 172 H 0-150 mg/dl Cholesterol Level 120 0-200 mg/dl HDL Cholesterol 33 mg/dl Cholesterol/HDL Ratio 3.6 LDL Cholesterol, Calculated 53 mg/dl Medical Emergencies . Who to Call and When: Medical Emergencies: If at any time you feel your situation is an emergency, please call 911 immediately. . Non-Emergent Contact Non-Emergency issues call your: Primary Care Provider . . "Provider Documentation" section prepared by Jose Garcia. . Core Measure Problem Core Measures: None
--- NOTE | 2017-03-08 10:53 | NEPHROLOGY PROGRESS NOTE ---
DATE: 03/08/2017 SUBJECTIVE: Mr. Cabrera says that he is feeling relatively well today. He denies having any chest pain. He says that he is slightly short of breath, but no more than usual. His appetite is good and he seems to eat everything that is brought to him. He denies having any pain in his hands or feet. He has no shaking chills or sweats. He was seen just after the initiation of his dialysis treatment this morning. OBJECTIVE: GENERAL: On physical exam when seen by me, he appeared relatively well, but somewhat withdrawn. However, after talking with him for a period of time, his demeanor seemed to get back to its usual level. VITAL SIGNS: He is afebrile (36.6), his blood pressure when seen by me was 82/40, his pulse 65 and seemingly regular, respiratory rate was 16 and nonlabored, and his pulse ox 99% on 4 liters of oxygen via nasal cannula. SKIN: Showed normal skin turgor. He had changes of venous stasis dermatitis on his lower extremities. They were wrapped. Additionally, he had a blistering lesion on his right forefinger. The surrounding area was becoming somewhat more, purply in color, but definitely gangrenous changes were not noted. He had a left antecubital fossa scar from the creation of his AV fistula and multiple dialysis needle tract henry over the fistula. LYMPHATICS: Showed no palpable lymphadenopathy or evidence of lymphangitis. HEAD: Grossly normal. EYES: Grossly normal. The ocular fundi were not examined. EARS, NOSE, MOUTH AND THROAT: Unremarkable. Oral mucous membranes are moist. Dentition is in only fair repair. NECK: Supple. He has no jugular venous distention, but the exam is limited by his body habitus. I hear no carotid bruit and there is no thyromegaly. CHEST: Shows elevated hemidiaphragms related to his body habitus. He has no current wheezes, rales or rhonchi. CARDIAC: Shows an apparent regular rhythm. He has a grade 2-3 relatively high pitched systolic murmur, loudest at the base, radiating toward the neck. It also is heard along the upper left sternal border. ABDOMEN: Morbidly obese. It is nontender. There is no organomegaly or mass. EXTREMITIES: Show no cyanosis or clubbing. He continues to have 1-2+ firm lower extremity edema. He has the venous stasis changes noted with a few open sores over the involved area. He has the changes in his right forefinger noted above. Peripheral pulses are difficult to feel. NEUROLOGIC: Shows no lateralizing changes. He is globally weak. No significant laboratory work was done today. ASSESSMENT: Mr. Cabrera appears to be reasonably stable in his chronic state of impaired health. Certainly, close attention needs to be paid to the right forefinger to make sure that he does not evolve gangrenous changes there. No other recommendations. Apparently, he is to be transferred to [facility] today assuming bed availability. He will be dialyzed as an outpatient at [facility] in [place] on Monday, Monday and Monday as per his usual schedule. Upon discharge, he should continue on his renal diabetes diet and continue with his regular medication program.
[2017-03-08] MEDS: CALCIUM ACETATE 667MG GELCAP PO PRN (11:58)
[2017-03-08] MEDS ORDERED: ACETAMINOPHEN 500 MG TAB PO STA (12:04)
[2017-03-08] MEDS ORDERED: ACETAMINOPHEN 500 MG TAB PO ONE (12:06)
--- NOTE | 2017-03-08 17:04 | Discharge Summary ---
Discharge Summary Date of Service March 08, 2017. Discharge Summary Admission Date: March 01, 2017 at 11:47 Discharge Date: March 08, 2017 [facility] facility Principal Diagnosis: SIRS, finger infection Immunizations: Have You Had Influenza Vaccine: Unknown History of Tetanus Vaccine?: Unknown History of Pneumococcal: Unknown History of Hepatitis B Vaccine: Unknown Procedures: wound care debridement HD SINGLE VIEW CHEST CLINICAL HISTORY: Dyspnea. FINDINGS: An AP, portable, upright chest radiograph is compared to study dated 12/04/2016. The examination is severely degraded by large body habitus, patient rotation, portable technique. A vascular stent projects over the right upper chest. A single lead cardiac pacemaker is unchanged in position. The heart is enlarged and there is atherosclerotic calcification of the thoracic aorta. There is pulmonary vascular congestion. Trace pleural effusions are suspected. Bibasilar airspace opacities are typical for atelectasis. A calcified granuloma is again seen in the right lower lung. No pneumothorax is identified. The skeletal structures are osteopenic. The bony thorax is grossly intact. IMPRESSION: 1. Cardiomegaly and cardiac pacemaker with evidence of congestive failure. 2. Layering pleural effusions and bibasilar atelectasis. Electronically signed by: Garry Milian M.D. 03/01/2017 8:42 AM Dictated Date/Time: 03/01/2017 8:40 AM Consultations: nephrology Medication Reconciliation New Medications: Amoxicillin (Amoxicillin) 500 Mg Cap 500 MG PO HS, #5 CAP Doxycycline Hyclate (Doxycycline Hyclate) 100 Mg Cap 100 MG PO BID, #10 CAP Continued Medications: Allopurinol (Zyloprim) 100 Mg Tab 100 MG PO DAILY, TAB Aspirin (Aspirin Ec) 81 Mg Tab 81 MG PO DAILY Calcium Acetate (Phoslo 667 Mg) 667 Mg Cap 2001 MG PO TIDM, 0 Refills take 3 caps with each meal Calcium Acetate (Phoslo 667 Mg) 667 Mg Cap 1-2 CAP PO UD PRN for WITH SNACKS Cinacalcet (Sensipar) 30 Mg Tab 60 MG PO DAILY WITH EVENING MEAL Gabapentin (Neurontin) 100 Mg Cap 1 CAP PO QD for 30 Days, #30 CAP 2 Refills Insulin Aspart (Novolog Flexpen) 100 Units/Ml Inj 0 UNITS SC AC, #1 goal range: 125-150. use correction factor of 15 use carbohydrate ratio of 1 unit of insulin for every 5 grams of carbohydrates consumed. Insulin Glargine (Toujeo Solostar) 300 Unit/Ml Inj 45 UNITS SC QD Levothyroxine Sodium (Synthroid) 25 Mcg Tab 1 TAB PO DAILY for 30 Days, #30 TAB 5 Refills Oxygen (Oxygen) Gas 4 LITERS NA CONTINOUS Polyethylene Glycol 3350 (Miralax) 1 Pow Pow 174 GM PO QAM Simvastatin (Zocor) 40 Mg Tab 40 MG PO QPM Warfarin Sodium (Coumadin) 5 Mg Tab 5 MG PO HS [vitamin with zinc] () 1 CAP PO QD Discontinued Medications: Cephalexin Monohydrate (Keflex) 500 Mg Cap 500 MG PO TID, #30 CAP Discharge Exam Physical Exam: General Appearance: no apparent distress Eyes: EOMI ENT: hearing grossly normal Neck: trachea midline Respiratory/Chest: no respiratory distress, no accessory muscle use 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 1. SIRS with left second digit cellulitis/wound - improving - coag negative staph and enterococcus faecalis. amoxicillin to cover enterococcus faecalis and doxy for staph coag neg - doing well, no need for changes at this time - duration based on further clinical response. wrote Rx for five more days. ongoing wound clinic f/u for assistance in duration of abx , and ongoing local wound care 2. ambulatory dysfunction/weakness - PT/OT - still feels weak, for [facility] 3. Acute on chronic diastolic CHF, stable at this time - S/P pacemaker insertion from December 2016 - Cont ASA 81 mg and Simvastatin 40 mg daily - not on diuretics at home, appearing OK at end of HD 4. End-stage renal disease on HD - Normal scheduled HD is on --F, nephrology on board - Appreciate nephrology recs, cont dialysis M,, 5. Hypotension - has history of autonomic dysregulation. Has been on midodrine in the past. Pressures are mainly in the 80 to 110s systolic. - this is chronic 6. Atrial fibrillation - Continue patient on Coumadin 5 mg every afternoon - continue to follow INR 7. Obstructive sleep apnea - Patient wears 4 L of O2 chronically, continue, patient reports he does not wear CPAP although this has been documented on previous discharge summary. 8. Diabetes mellitus type 2 - stable, continue long acting with SSI, sugars reasonable control 9. DVT prophylaxis: Teds, SCDs and Coumadin 10. hyperkalemia - HD. periodic BMP - is chronically hyperkalemic 11. vitamin D deficiency / hypocalcemia - this was back after discharge, please address w supplementation @ [facility] Total Time Spent: Greater than 30 minutes This includes examination of the patient, discharge planning, medication reconciliation, and communication with other providers. Discharge Instructions Please refer to the electronic Patient Visit Report (Discharge Instructions) for additional information. Additional Copies To [facility] Acuña
[2017-04-05] MEDS ORDERED: ACET-1311 PO (11:26)
[2017-04-12] MEDS ORDERED: AMOX500C3 PO (07:45)
[2017-04-12] MEDS ORDERED: DOXY100C76 PO (07:45)
[2017-04-12] MEDS ORDERED: MULTTAB63 PO (16:13)
[2017-04-12] MEDS ORDERED: BISA10SU38 PR (16:13)
[2017-04-12] MEDS ORDERED: POVI10SO38 TOP (16:13)
[2017-04-12] MEDS ORDERED: MOML PO (16:13)
[2017-04-12] MEDS ORDERED: SODIENE PR (16:13)
[2017-04-12] MEDS ORDERED: NYSTATIN POWDER TOP (16:14)
[2017-04-13] MEDS ORDERED: OXYC-57 PO ×2 (15:42→15:56)
[2017-05-25] MEDS ORDERED: CEPH500C2 PO (13:07)
[2017-06-09] MEDS ORDERED: DFL100 PO (15:15)
[2017-06-09] MEDS ORDERED: LVQ250 PO (15:15)
[2017-06-09] MEDS ORDERED: GABA1CAP PO (15:15)
[2017-06-09] MEDS ORDERED: KFL250 PO (15:15)
[2017-06-09] MEDS ORDERED: NZRCR TOP (15:30)
== END 2017-03-08 15:24 | DRG 291 ==
LOC: ENRESERVDT → ENRESERVTM → EDBD 07:31 → C.EDB 07:33 → C.2T 11:47 → C.2E 15:29 → EDBEDREQ 03-04 10:13 → C.MS2W 03-04 12:39
PROVIDERS: ADMIT Hospitalist; ATTEND Family Medicine
PROC: 0HDFXZZ Extraction of Right Hand Skin, External Approach (ICD-10-PCS; principal; 2017-03-03)
DX: I13.2 Hypertensive heart and chronic kidney disease with heart failure and with stage 5 chronic kidney disease, or end stage renal disease (principal); I50.33 Acute on chronic diastolic (congestive) heart failure; N18.6 End stage renal disease; Z68.42 Body mass index [BMI] 45.0-49.9, adult; L97.929 Non-pressure chronic ulcer of unspecified part of left lower leg with unspecified severity; L97.919 Non-pressure chronic ulcer of unspecified part of right lower leg with unspecified severity; N25.81 Secondary hyperparathyroidism of renal origin; L03.011 Cellulitis of right finger; B95.7 Other staphylococcus as the cause of diseases classified elsewhere; B95.2 Enterococcus as the cause of diseases classified elsewhere; E11.51 Type 2 diabetes mellitus with diabetic peripheral angiopathy without gangrene; R26.89 Other abnormalities of gait and mobility; R53.1 Weakness; I95.89 Other hypotension; E55.9 Vitamin D deficiency, unspecified; E87.5 Hyperkalemia; D72.829 Elevated white blood cell count, unspecified; I83.019 Varicose veins of right lower extremity with ulcer of unspecified site; I27.2 Other secondary pulmonary hypertension; I83.029 Varicose veins of left lower extremity with ulcer of unspecified site; E11.42 Type 2 diabetes mellitus with diabetic polyneuropathy; E11.22 Type 2 diabetes mellitus with diabetic chronic kidney disease; I48.91 Unspecified atrial fibrillation; G47.33 Obstructive sleep apnea (adult) (pediatric); E66.01 Morbid (severe) obesity due to excess calories; J44.9 Chronic obstructive pulmonary disease, unspecified; I27.81 Cor pulmonale (chronic); D63.1 Anemia in chronic kidney disease; Z51.81 Encounter for therapeutic drug level monitoring; Z79.899 Other long term (current) drug therapy; Z79.01 Long term (current) use of anticoagulants; Z79.4 Long term (current) use of insulin; Z79.82 Long term (current) use of aspirin; Z99.81 Dependence on supplemental oxygen; Z99.2 Dependence on renal dialysis; Z95.0 Presence of cardiac pacemaker; Z85.51 Personal history of malignant neoplasm of bladder; Z87.891 Personal history of nicotine dependence

== ENCOUNTER → 2017-04-05 | Day surgery (SDC) | payer OTHER, MEDICARE ==
[~2017-04-05] VITALS: Ht 177.8 cm; Wt 145.0 kg
[~2017-04-05] MED LIST changes: +ACET-1311 PO; -ALL100 PO; +ALLO100T PO; +AMOX500C3 PO; +BISA-16 PO; +BISA10SU38 PR; +CEFAZOLIN 1000MG/55 ML D5W 55 ML IV SCH; +DFL100 PO; +DOXY100C76 PO; +FENTANYL CITRATE INJ 50 MCG/1 ML 2 ML VIAL ONE; +KFL250 PO; +KFL500HP PO; +LEVO50TA6 PO; +LIDOCAINE HCL 2% 2 ML VIAL (20MG/ML) ONE; +LVQ250 PO; +MOML PO; +MULTTAB63 PO; +NSS 1000ML IV SCH; +NYSTATIN POWDER TOP; +NZRCR TOP; +OXYC-57 PO; +POVI10SO38 TOP; +PROPOFOL IV EMULSION 10 MG/ML 20 ML VIAL IV ONE; +SODIENE PR; +VBRT100 PO
--- NOTE | 2017-04-05 06:06 | History and Physical ---
History & Physical Date of Service Apr 05, 2017. History & Physical Chief Complaint: Malfunctioning right upper arm av fistula History of Present Illness The patient is a 69 year old male with multiple medical problems/comorbidities including ESRD on HD, He is admitted today due a thinned out area of his fistula with pending rupture Allergies No Known Allergies (Verified , 07/07/14) Surgical / Medical History Hx Cardiac Surgery: No Hx Abdominal Surgery: No Hx Cancer Surgery: Yes (bladder) Hx Thoracic Surgery: No Hx Orthopedic: Yes (corrective procedure right leg) Hx Urinary Tract Surgery: No HX Other Surgery: No Past Medical/Surgical History: [place] Family History Patient reports no known family medical history. Social History Smoking Status: Former Smoker Hx Tobacco Use In Past Year?: No Hx Alcohol Use - Type & Amnt: No Hx Substance Use -Type & Amnt: No Review of Systems Constitutional: No chills, No fever, No malaise Skin: No change in color Eyes: No visual changes ENMT: No rhinorrhea, No sore throat Respiratory: No cough, No BEE, No hemoptysis, No short of breath Cardiovascular: + edema, No chest pain, No palpitations, No syncope, No intermittent claudication Gastrointestinal: No abdominal pain, No nausea, No vomiting Neurologic: + paresthesia (chronic), No dizziness, No headache Physical Exam: Constitutional: General Apperance: well-nourished, well-developed, obese Level of Distress: NAD, chronically ill Ambulation: in wheelchair Psychiatric: Mental Status: active & alert, normal mood, normal affect Orientation: oriented except where noted, to time, to place, to person Memory: recent memory normal, remote memory normal Head: normocephalic, atraumatic Eyes: EOM: EOMI ENMT: normal ENT inspection, hearing grossly normal Neck: supple, trachea midline, no masses Lungs: Respiratory effort: no dyspnea Auscultation: no wheezing, no rhonchi, decreased breath sounds Cardiovascular: Apical Impulse: not displaced Heart Auscultation: RRR, no rubs, no gallops Peripheral Pulses: Pulses: full and equal, in all extremities except if noted Bruits: none appreciated Carotid Pulse: normal on the left, normal on the right Brachial Pulses: normal on the left, normal on the right Radial Pulse: normal on the left, normal on the right Femoral Pulse: normal on the left, normal on the right Posterior Tibialis Pulse: decreased on the left, decreased on the right Dorsalis Pedis Pulse: decreased on the left, decreased on the right Abdomen: Bowel Sounds: normal Inspection & Palpation: soft, non-distended, no tenderness, guarding & rebound Musculoskeletal: normal strength (5/5 throughout), normal tone Extremities: Upper Right: no cyanosis, no varicosities, edema, thrill and bruit present , Thinned out purplish area overlying fistula puncture site Upper Left: no cyanosis, no varicosities, no palpable cord, edema Lower Right: no cyanosis, no varicosities, no palpable cord, edema, pertinent finding (+3 pitting edema with mild serous drainage on dressing. + skin changes from venous insufficiency.) Lower Left: no cyanosis, no varicosities, no palpable cord, Neurologic: Cranial Nerves: grossly intact Sensation: grossly intact ASSESSMENT and PLAN: Imp: ESRD on HD Malfunctioning JASPREET access Plan: Patient is admitted for a revision of his right arm fistula. He understands the risks options and benefits and agrees to the procedure
[2017-04-05 11:16] VITALS: BP 87/47; PULSE 74; TEMP 36.8; O2SAT 99; Ht 177.8 cm; Wt 145.0 kg
[2017-04-05 12:04] LABS: BUN/CREATININE RATIO 8.9 (10-20); CALCIUM 7.7 mg/dl (8.5-10.1); CREATININE 9.7 mg/dl (0.60-1.40); POTASSIUM 6.5 mmol/L (3.5-5.1)
[2017-04-05 12:08] LABS: INR 2.6 (0.9-1.1); PROTHROMBIN TIME (PATIENT) 28.5 SECONDS (9.0-12.0)
--- NOTE | 2017-04-05 13:34 | Progress Note ---
Progress Note Date of Service Apr 05, 2017. Progress Note Postassium 6.5. Surgery cancelled. Will notify nephrology.
--- NOTE | 2017-04-05 13:53 | Nephrology Progress Note ---
Nephrology Progress Note Date of Service Apr 05, 2017. Review of Systems A complete review of systems was performed. Pertinent positives are noted above. All other systems are negative. Vital Signs Last 8 Hrs Date Time Temp Pulse Resp B/P (MAP) Pulse Ox O2 Delivery O2 Flow Rate FiO2 04/05/17 11:16 36.8 74 20 87/47 (60) 99 Nasal Cannula 4 Last Recorded Weight Weight (Kilograms): 145 Family History Patient reports no known family medical history. Social History Smoking Status: Never smoker Drug Use: none Marital Status: Housing Status: lives with family Occupation: retired Laboratory Results Past 24 Hours 04/05/17 11:25 Test 04/05/17 11:14 04/05/17 11:25 Bedside Glucose 165 mg/dl (70-99) Prothrombin Time 28.5 SECONDS (9.0-12.0) Prothromb Time International Ratio 2.6 (0.9-1.1) Activated Partial Thromboplast Time 50.9 SECONDS (21.0-31.0) Partial Thromboplastin Ratio 2.0 Anion Gap 10.0 mmol/L (3-11) Est Creatinine Clear Calc Drug Dose 10.1 ml/min Estimated GFR () 5.6 Estimated GFR (Non- 4.8 BUN/Creatinine Ratio 8.9 (10-20) Calcium Level 7.7 mg/dl (8.5-10.1) Allergies Coded Allergies: No Known Allergies (Verified , 04/05/17) Medications Current Inpatient Medications Medications (Trade) Dose Ordered Sig/Katiuska Route Start Time Stop Time Status Last Admin Dose Admin Sodium Chloride 1,000 ml @ 10 mls/hr Q24H IV 04/05/17 06:00 04/06/17 05:59 Cefazolin Sodium 55 ml @ 100 mls/hr PREOP IV 04/05/17 06:00 04/05/17 18:[address] Agiurre as Mr. 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 Dr. Aguirre feels that the fistula currently working well and he is planning to reschedule him as an outpatient. Initial plan is to admit him to the hospital to get acute dialysis considering potassium was 6.5. Spoke with Dr. Flaherty over telephone who suggested that s potassium usually runs high, he does not need admission can directly go to outpatient dialysis unit from the same-day surgery and Dr. Flaherty will inform the outpatient dialysis unit. Spoke with the same date nurse Alona and informed that Mr. Cabrera should be discharged from the same day unit, go to his outpatient dialysis unit for acute dialysis for hemodialysis. Patient does not need hospital admission.
--- NOTE | 2017-04-05 14:12 | Progress Note ---
Progress Note Date of Service Apr 05, 2017. Progress Note Primary tire mechanic, Dr Flaherty, notified of pt's hyperkalemia and recommends pt to undergo outpt HD at his usual unit today, as pt is asymptomatic and his potassium level is typically elevated. Pt discharged to go to outpt HD unit.
--- NOTE | 2017-04-12 16:26 | PAT Medication Instructions ---
Service Date Apr 12, 2017. Current Home Medication List Acetaminophen (Tylenol), 650 MG PO Q6 PRN for Pain or Fever Allopurinol (Zyloprim), 100 MG PO QAM Aspirin (Aspirin Ec), 81 MG PO QAM Bisacodyl (Dulcolax), 1 SUPP IN PRN Calcium Acetate (Phoslo 667 Mg), 4 TABS PO TIDM Calcium Acetate (Phoslo 667 Mg), 2 CAP PO UD Cinacalcet (Sensipar), 60 MG PO DAILY Gabapentin (Neurontin), 1 CAP PO QAM Home O2 Therapy (Oxygen), 4 LITERS NA CONTINOUS Insulin Aspart (Novolog Flexpen), 0 UNITS SC AC Insulin Glargine (Toujeo Solostar), 50 UNITS SC QAM Levothyroxine Sodium (Synthroid), 1 TAB PO QAM Magnesium Hydroxide (Milk Of Magnesia), 30 ML PO UD PRN for RN Multiple Vitamins W/ Minerals (Therems M), 1 TAB PO QAM Polyethylene Glycol 3350 (Miralax), 174 GM PO QAM Povidone-Iodine (Betadine), 1 DOSE TOP QAM Simvastatin (Zocor), 40 MG PO QPM Sodium Phosphate/Biphosphate (Fleet Enema), 1 EA IN UD PRN for RN Warfarin Sodium (Coumadin), 5 MG PO HS [Nystatin Powder], 1 DOSE TOP BID Medication Instructions For Your Scheduled Surgery - Instructions per surgeon: Warfarin Sodium (Coumadin), 5 MG PO HS - Hold the following medications 24 hours prior to surgery: [Nystatin Powder], 1 DOSE TOP BID - Hold the following medications the morning of surgery: Insulin Aspart (Novolog Flexpen), 0 UNITS SC AC Magnesium Hydroxide (Milk Of Magnesia), 30 ML PO UD PRN Bisacodyl (Dulcolax), 1 SUPP IN PRN Multiple Vitamins W/ Minerals (Therems M), 1 TAB PO QAM Polyethylene Glycol 3350 (Miralax), 174 GM PO QAM Sodium Phosphate/Biphosphate (Fleet Enema), 1 EA IN UD PRN Calcium Acetate (Phoslo 667 Mg), 4 TABS PO TIDM Calcium Acetate (Phoslo 667 Mg), 2 CAP PO UD Cinacalcet (Sensipar), 60 MG PO DAILY Povidone-Iodine (Betadine), 1 DOSE TOP QAM - Take the following medications the morning of surgery with a sip of water: Acetaminophen (Tylenol), 650 MG PO Q6 PRN for Pain or Fever (may take if needed up to 4 hours prior to surgery) Allopurinol (Zyloprim), 100 MG PO QAM Aspirin (Aspirin Ec), 81 MG PO QAM Gabapentin (Neurontin), 1 CAP PO QAM Levothyroxine Sodium (Synthroid), 1 TAB PO QAM - Check Blood Sugar AM of surgery. IF blood sugar is GREATER THAN 150, take HALF of: Insulin Glargine (Toujeo Solostar) IF blood sugar is LESS THAN 150, DO NOT TAKE ANY: Insulin Glargine (Toujeo Solostar) - Take the following medications as scheduled the night before surgery: Acetaminophen (Tylenol), 650 MG PO Q6 PRN for Pain or Fever Calcium Acetate (Phoslo 667 Mg), 4 TABS PO TIDM Simvastatin (Zocor), 40 MG PO QPM If you have any questions please call us at [phone] or [phone] or [phone]
== END | disposition home or self-care (01) ==
LOC: C.ACU 10:52
PROVIDERS: ATTEND Surgery Vascular Surgery
DX: I77.0 Arteriovenous fistula, acquired (principal); Z53.8 Procedure and treatment not carried out for other reasons; E87.5 Hyperkalemia; N18.6 End stage renal disease; Z99.2 Dependence on renal dialysis; Z87.891 Personal history of nicotine dependence; Z79.899 Other long term (current) drug therapy

== ENCOUNTER 2017-04-13 11:52 | Day surgery (SDC) | payer OTHER, MEDICARE ==
[2017-04-12 15:30] VITALS: BMI 46.0
[~2017-04-13] VITALS: Ht 177.8 cm; Wt 145.0 kg
--- NOTE | 2017-04-13 07:29 | History and Physical ---
History & Physical Date of Service Apr 13, 2017. History & Physical Chief Complaint: Malfunctioning right upper arm av fistula History of Present Illness The patient is a 69 year old male with multiple medical problems/comorbidities including ESRD on HD, He is admitted today due a thinned out area of his fistula with pending rupture Allergies No Known Allergies (Verified , 07/07/14) Surgical / Medical History Hx Cardiac Surgery: No Hx Abdominal Surgery: No Hx Cancer Surgery: Yes (bladder) Hx Thoracic Surgery: No Hx Orthopedic: Yes (corrective procedure right leg) Hx Urinary Tract Surgery: No HX Other Surgery: No Past Medical/Surgical History: [place] Family History Patient reports no known family medical history. Social History Smoking Status: Former Smoker Hx Tobacco Use In Past Year?: No Hx Alcohol Use - Type & Amnt: No Hx Substance Use -Type & Amnt: No Review of Systems Constitutional: No chills, No fever, No malaise Skin: No change in color Eyes: No visual changes ENMT: No rhinorrhea, No sore throat Respiratory: No cough, No BEE, No hemoptysis, No short of breath Cardiovascular: + edema, No chest pain, No palpitations, No syncope, No intermittent claudication Gastrointestinal: No abdominal pain, No nausea, No vomiting Neurologic: + paresthesia (chronic), No dizziness, No headache Physical Exam: Constitutional: General Apperance: well-nourished, well-developed, obese Level of Distress: NAD, chronically ill Ambulation: in wheelchair Psychiatric: Mental Status: active & alert, normal mood, normal affect Orientation: oriented except where noted, to time, to place, to person Memory: recent memory normal, remote memory normal Head: normocephalic, atraumatic Eyes: EOM: EOMI ENMT: normal ENT inspection, hearing grossly normal Neck: supple, trachea midline, no masses Lungs: Respiratory effort: no dyspnea Auscultation: no wheezing, no rhonchi, decreased breath sounds Cardiovascular: Apical Impulse: not displaced Heart Auscultation: RRR, no rubs, no gallops Peripheral Pulses: Pulses: full and equal, in all extremities except if noted Bruits: none appreciated Carotid Pulse: normal on the left, normal on the right Brachial Pulses: normal on the left, normal on the right Radial Pulse: normal on the left, normal on the right Femoral Pulse: normal on the left, normal on the right Posterior Tibialis Pulse: decreased on the left, decreased on the right Dorsalis Pedis Pulse: decreased on the left, decreased on the right Abdomen: Bowel Sounds: normal Inspection & Palpation: soft, non-distended, no tenderness, guarding & rebound Musculoskeletal: normal strength (5/5 throughout), normal tone Extremities: Upper Right: no cyanosis, no varicosities, edema, thrill and bruit present , Thinned out purplish area overlying fistula puncture site Upper Left: no cyanosis, no varicosities, no palpable cord, edema Lower Right: no cyanosis, no varicosities, no palpable cord, edema, pertinent finding (+3 pitting edema with mild serous drainage on dressing. + skin changes from venous insufficiency.) Lower Left: no cyanosis, no varicosities, no palpable cord, Neurologic: Cranial Nerves: grossly intact Sensation: grossly intact ASSESSMENT and PLAN: Imp: ESRD on HD Malfunctioning JASPREET access Plan: Patient is admitted for a revision of his right arm fistula. He understands the risks options and benefits and agrees to the procedure
[~2017-04-13 11:52] MED LIST changes: -AMOX500C3 PO; -BISA-16 PO; -CEFAZOLIN 1000MG/55 ML D5W 55 ML IV SCH; -CEPH500C2 PO; -DFL100 PO; -DOXY100C76 PO; -FENTANYL CITRATE INJ 50 MCG/1 ML 2 ML VIAL ONE; -KFL250 PO; -KFL500HP PO; -LEVO50TA6 PO; -LIDOCAINE HCL 2% 2 ML VIAL (20MG/ML) ONE; -LVQ250 PO; -NSS 1000ML IV SCH; -NZRCR TOP; -OXYC-57 PO; -PROPOFOL IV EMULSION 10 MG/ML 20 ML VIAL IV ONE; +SODIUM CHLORIDE 0.9% 1000ML 1,000 ML IV SCH; -VBRT100 PO; -[UNRECOGNIZED DRUG - OTHER] PO
[2017-04-13 12:48] VITALS: BP 105/43; PULSE 76; TEMP 36.7; O2SAT 99; Ht 177.8 cm; Wt 145.0 kg
[2017-04-13] MEDS ORDERED: DOXY100C76 PO (13:09)
[2017-04-13] MEDS ORDERED: AMOX500C3 PO (13:09)
[2017-04-13] MEDS ORDERED: PROPOFOL IV EMULSION 10 MG/ML 20 ML VIAL IV ONE (13:27)
[2017-04-13] MEDS ORDERED: FENTANYL CITRATE INJ 50 MCG/1 ML 2 ML VIAL ONE ×2 (13:27→15:01)
[2017-04-13] MEDS ORDERED: SODIUM CHLORIDE 0.9% INJ 10 ML VIAL ONE (13:27)
[2017-04-13] MEDS ORDERED: MIDAZOLAM HCL 1 MG/ML 2ML VIAL ONE (13:27)
[2017-04-13] MEDS ORDERED: ONDANSETRON INJ 2 MG/ML 2 ML VIAL ONE (13:27)
[2017-04-13] MEDS ORDERED: LIDOCAINE HCL 2% 2 ML VIAL (20MG/ML) ONE (13:27)
[2017-04-13] MEDS ORDERED: KETAMINE HCL INJ 50 MG/ML 10 ML VIAL ONE (13:28)
[2017-04-13] MEDS ORDERED: EpHEDrine SULFATE INJ 50 MG/ML AMP IV PRN (13:30)
[2017-04-13] MEDS ORDERED: FENTANYL CITRATE INJ 50 MCG/1 ML 2 ML VIAL IV PRN (13:30)
[2017-04-13] MEDS ORDERED: ATROPINE SULFATE 0.1 MG/ML 5ML SYR IV PRN (13:30)
[2017-04-13] MEDS ORDERED: ONDANSETRON INJ 2 MG/ML 2 ML VIAL IV PRN (13:30)
--- NOTE | 2017-04-13 13:39 | History & Physical Bridge Note ---
H&P Re-Evaluation Bridge Note: I have examined the patient, reviewed the History & Physical and in the interval since the performance of the History & Physical I have noted the following changes of clinical significance: No changes noted
[2017-04-13] MEDS ORDERED: THROMBIN FOR SOLN 20000 UNIT KIT ONE (13:43)
[2017-04-13] MEDS ORDERED: GELATIN SPONGE 12-7MM ONE (13:44)
[2017-04-13] MEDS ORDERED: LIDOCAINE HCL 1% 20 ML VIAL ONE (13:44)
[2017-04-13] MEDS ORDERED: HEPARIN SOD (PORCINE) 1000 UNIT/ML 10 ML VIAL ONE (13:44)
[2017-04-13] MEDS ORDERED: CEFAZOLIN IV 3,000 MG/65 ML D5W IV ONE (13:45)
[2017-04-13 13:51] LABS: INR 1.1 (0.9-1.1); PARTIAL THROMBOPLASTIN RATIO 1.3; PROTHROMBIN TIME (PATIENT) 12.3 SECONDS (9.0-12.0)
[2017-04-13] MEDS ORDERED: BUPIVACAINE/EPINEPHRINE 0.5% MPF 1:200,000 10 ML VIAL ONE (13:52)
[2017-04-13 14:11] LABS: BUN/CREATININE RATIO 7.3 (10-20); CREATININE 6.9 mg/dl (0.60-1.40); POTASSIUM 5.1 mmol/L (3.5-5.1)
--- NOTE | 2017-04-13 15:39 | [facility] Post Operative Brief Note ---
Immediate Operative Summary Operative Date Apr 13, 2017. Pre-Operative Diagnosis Malfunctioning Right Upper Arm Arterio-Venous Fistula Post-Operative Diagnosis Malfunctioning Right Upper Arm Arterio-Venous Fistula Procedure(s) Performed Revision Right Upper Extremity Arteriovenous Fistula with venorrhaphy Surgeon Dr. 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
[2017-04-13] MEDS ORDERED: OXYC-57 PO ×2 (15:42→15:56)
--- NOTE | 2017-04-13 15:43 | Discharge Instructions ---
Discharge Instructions Date of Service Apr 13, 2017. Visit Reason for Visit: End Stage Renal Disease Discharge Discharge Diagnosis / Problem: Malfunctioning left upper arm fistula Discharge Goals Goal(s): Therapeutic intervention Activity Recommendations Activity Limitations: resume your previous activity Anesthesia . Post Anesthesia Instructions: If you have had General Anesthesia or IV Sedation: * Do not drive today. * Resume driving when surgeon permits. * Do not make important decisions or sign legal documents today. * Call surgeon for: 1. Temperature elevations greater than 101 degrees F. 2. Uncontrollable pain. 3. Excessive bleeding. 4. Persistent nausea and vomiting. 5. Medication intolerance (nausea, vomiting or rash). * For nausea and vomiting use only clear liquids such as: tea, soda, bouillon until nausea subsides, then gradually increase diet as tolerated. * If you have any concerns or questions, call your surgeon's office. If physician is unavailable and it is an emergency, call 911 or go to the nearest emergency room. . Instructions / Follow-Up Instructions / Follow-Up Call [phone] to schedule a follow up appointment if one not already scheduled. May use fistula but not in the circled area. this may be punctured in two weeks. ACTIVITY RECOMMENDATIONS: See Above SPECIAL CARE INSTRUCTIONS: Call your doctor if: * Temperature above 101 degrees * Pain not relieved by pain medicine ordered * There is increased drainage or redness from any incision * You have any unanswered questions or concerns. Diet Recommendations Recommended Home Diet: resume previous diet Procedures Procedures Performed: Revision Right Upper Extremity Arteriovenous Fistula with venorrhaphy Pending Studies Studies pending at discharge: no Medical Emergencies . Who to Call and When: Medical Emergencies: If at any time you feel your situation is an emergency, please call 911 immediately. . Non-Emergent Contact Non-Emergency issues call your: Surgeon . . "Provider Documentation" section prepared by Jonathon Aguirre. .
--- NOTE | 2017-04-13 15:54 | [facility] Operative Report ---
Operative Report Operative Date Apr 13, 2017. Pre-Operative Diagnosis Malfunctioning Right Upper Arm Arterio-Venous Fistula Post-Operative Diagnosis Malfunctioning Right Upper Arm Arterio-Venous Fistula Procedure(s) Performed Revision Right Upper Extremity Arteriovenous Fistula with venorrhaphy Surgeon Dr. Aguirre C Software Engineer Surgeon(s) none Estimated Blood Loss 20 ml Findings thinned out area over venous aneurysm Specimens none Anesthesia MAC Complication(s) None Disposition Recovery Room / PACU Indications This patient's a 72-year-old white male with a right upper arm fistula. He's developed a thinned area over venous aneurysm in the proximal portion was fistula which continues to bleed after dialysis. Revision of the fistula was recommended. He understood the risks options benefits and agreed to go ahead with this procedure. Description of Procedure The patient was taken up room placed in the supine position of the right arm was prepped and draped in a sterile manner local anesthetic was administered. An elliptical incision was made around the thinned out area. The area had a puncture site in the center which was oozing at this time. The area encompassed in the elliptical incision was slightly reddened and erythematous. There is also a small scab present on a higher area up on the fistula. The skin was removed and normal healed skin was seen underneath. Dissection was then carried down around the venous aneurysm and it was freed up from the surrounding tissue. Proximal distal control was obtained. A venotomy was then performed in the venous aneurysm. This piece of vein resected encompassed the attached skin from the overlying area that was thin and bleeding. The venous aneurysm was then trimmed down in size and a venorrhaphy was accomplished. Once this was done the venotomy was closed using running 5-0 Prolene suture in a usual vascular fashion. Clamps removed from the fistula. Adequate hemostasis was noted of the suture line. The wound was inspected and adequate hemostasis was then noted. The surrounding tissues were freed up till the skin to be closed over the fistula. Subcutaneous tissue was then closed with a running 3-0 Vicryl suture. Skin edges were approximated using a 4-0 Vicryl subcuticular suture. Dermabond were used for dressing. There is good flow in the fistula at the end of the procedure. Patient left the operative in satisfactory condition and tolerated the procedure well. I attest to the content of the Intraoperative Record and any orders documented therein. Any exceptions are noted below.
--- NOTE | 2017-04-13 16:28 | Anesthesiology Progress Note ---
Anesthesia Post Op Note Date & Time Apr 13, 2017 at 16:28 Vital Signs Pain Intensity: 0 Vital Signs Past 12 Hours Date Time Temp Pulse Resp B/P (MAP) Pulse Ox O2 Delivery O2 Flow Rate FiO2 04/13/17 16:22 72 14 98 04/13/17 16:22 72 14 04/13/17 16:21 88/44 04/13/17 16:17 73 16 97 04/13/17 16:17 74 16 04/13/17 16:16 91/32 04/13/17 16:12 68 14 04/13/17 16:12 68 14 97 04/13/17 16:11 80/41 04/13/17 16:09 70 21 79/41 96 04/13/17 16:09 70 21 04/13/17 16:06 77/35 04/13/17 16:04 73 12 04/13/17 16:04 73 12 98 04/13/17 16:01 80/37 04/13/17 15:59 74 17 96 04/13/17 15:59 74 17 04/13/17 15:56 84/39 04/13/17 15:54 74 17 96 04/13/17 15:54 74 17 04/13/17 15:52 75/40 04/13/17 15:49 77 18 04/13/17 15:49 77 18 96 04/13/17 15:47 83/42 04/13/17 15:46 78/39 04/13/17 15:45 93/44 04/13/17 15:44 74 04/13/17 15:44 74 95 04/13/17 15:44 36.3 16 83/42 95 Nasal Cannula 4 04/13/17 12:48 36.7 76 20 105/43 (63) 99 Nasal Cannula 4 Notes Mental Status: alert / awake / arousable, participated in evaluation Pt Amnestic to Procedure: Yes Nausea / Vomiting: adequately controlled Pain: adequately controlled Airway Patency, RR, SpO2: stable & adequate BP & HR: stable & adequate Hydration State: stable & adequate Anesthetic Complications: no major complications apparent
[2017-04-13 16:40] VITALS: BP 87/46; PULSE 74; TEMP 36.7; O2SAT 98
[2017-04-13 17:10] VITALS: BP 105/41; PULSE 73; TEMP 36.6; O2SAT 100
[2017-05-25] MEDS ORDERED: CEPH500C2 PO (13:07)
[2017-06-09] MEDS ORDERED: GABA1CAP PO (15:15)
[2017-06-09] MEDS ORDERED: LVQ250 PO (15:15)
[2017-06-09] MEDS ORDERED: KFL250 PO (15:15)
[2017-06-09] MEDS ORDERED: DFL100 PO (15:15)
[2017-06-09] MEDS ORDERED: NZRCR TOP (15:30)
== END 2017-04-13 17:25 | disposition home or self-care (01) ==
LOC: C.ACU 11:52
PROVIDERS: ATTEND Surgery Vascular Surgery
DX: T82.590A Other mechanical complication of surgically created arteriovenous fistula, initial encounter (principal); Y83.2 Surgical operation with anastomosis, bypass or graft as the cause of abnormal reaction of the patient, or of later complication, without mention of misadventure at the time of the procedure; N18.6 End stage renal disease; E11.22 Type 2 diabetes mellitus with diabetic chronic kidney disease; Z99.2 Dependence on renal dialysis; Z87.891 Personal history of nicotine dependence

== ENCOUNTER 2017-05-28 15:02 | Inpatient (IN) | payer OTHER, MEDICARE ==
[~2017-05-28] VITALS: Ht 177.8 cm; Wt 152.9 kg
[~2017-05-28 15:02] MED LIST changes: +AMOX500C3 PO; +CEPH500C2 PO; +DOXY100C76 PO; +OXYC-57 PO; -SODIUM CHLORIDE 0.9% 1000ML 1,000 ML IV SCH
[2017-05-28] MEDS ORDERED: SODIUM CHLORIDE 0.9% 1000ML 1,000 ML IV STA (15:54)
[2017-05-28] MEDS ORDERED: LEVO50TA6 PO (15:59)
[2017-05-28] MEDS ORDERED: VBRT100 PO (15:59)
[2017-05-28] MEDS ORDERED: KFL500HP PO (15:59)
[2017-05-28] MEDS ORDERED: VANCOMYCIN 1GM/270ML NSS IV STA (16:26)
--- NOTE | 2017-05-28 16:31 | DIAGNOSTIC IMAGING REPORT ---
SINGLE VIEW CHEST CLINICAL HISTORY: Sepsis. FINDINGS: An AP, portable, upright chest radiograph is compared to study dated 03/01/2017. The examination is severely degraded by large body habitus, patient rotation, portable technique. A vascular stent projects over the right upper chest. A single lead cardiac pacemaker is unchanged in position. The heart is enlarged and there is atherosclerotic calcification of the thoracic aorta. There is pulmonary vascular congestion and interstitial edema. Small pleural effusions are identified. Bibasilar airspace opacities are typical for atelectasis. A calcified granuloma is again seen in the right lower lung. No pneumothorax is identified. The skeletal structures are osteopenic. The bony thorax is grossly intact. IMPRESSION: 1. Cardiomegaly and cardiac pacemaker with evidence of congestive failure and interstitial edema. 2. Layering pleural effusions and bibasilar atelectasis. Electronically signed by: Garry Milian M.D. 05/28/2017 4:30 PM Dictated Date/Time: 05/28/2017 4:29 PM
[2017-05-28] MEDS ORDERED: BISA-16 PO (16:54)
[2017-05-28 17:06] LABS: BASO % 0.1 %; BASO ABS # 0.01 K/uL (0-0.2); COMPLETE YES; EOS % 2.7 %; HEMATOCRIT 36.2 % (42-52); IG% 0.2 %; LYMPH % 6.5 %; LYMPH ABS # 0.57 K/uL (1.2-3.4); MEAN CELL VOLUME 93.3 fL (80-100); MEAN CORPUSCULAR HEMOGLOBIN 27.8 pg (25-34); MEAN CORPUSCULAR HGB CONC 29.8 g/dl (32-36); MEAN PLATELET VOLUME 10.3 fL (7.4-10.4); MONO % 5.2 %; NEUT % 85.3 %; PLATELET COUNT 204 K/uL (130-400); RED BLOOD COUNT 3.88 M/uL (4.7-6.1); WHITE BLOOD COUNT 8.81 K/uL (4.8-10.8)
[2017-05-28 17:33] LABS: INR 2.7 (0.9-1.1); PARTIAL THROMBOPLASTIN RATIO 2.2; PROTHROMBIN TIME (PATIENT) 29.7 SECONDS (9.0-12.0)
[2017-05-28 17:38] LABS: ALB/GLOB RATIO 0.8 (0.9-2); BUN/CREATININE RATIO 7.6 (10-20); CALCIUM 8.7 mg/dl (8.5-10.1)
[2017-05-28 17:41] LABS: CREATININE 8.2 mg/dl (0.60-1.40)
[2017-05-28 17:42] LABS: POTASSIUM 6.5 mmol/L (3.5-5.1)
[2017-05-28] MEDS ORDERED: DEXTROSE 50% 50 ML SYR IV STA (17:45)
[2017-05-28] MEDS ORDERED: NovoLIN-R INSULIN PER UNIT CHARGE IV STA (17:45)
[2017-05-28] MEDS: ALBUTEROL 0.5% NEB SOLN 2.5 MG/0.5 ML VIAL INH STA ×2 (18:29→19:08)
[2017-05-28] MEDS ORDERED: SODIUM POLYST. SULF SUSP 15G/60ML PO STA (19:26)
[2017-05-28] MEDS ORDERED: ACETAMINOPHEN 325 MG TAB PO PRN ×2 (19:30→19:45)
[2017-05-28] MEDS ORDERED: ALUMINUM/MAGNESIUM/SIMETH (MAALOX MAX) 30 ML UDC PO PRN (19:45)
[2017-05-28] MEDS ORDERED: ONDANSETRON INJ 2 MG/ML 2 ML VIAL IV PRN (19:45)
--- NOTE | 2017-05-28 20:14 | History and Physical ---
History & Physical Date & Time of Service: May 28, 2017 at 20:05 Chief Complaint: Sob, Loss Of Appetite Primary Care Physician: Sarthak Gracia M.D. History of Present Illness Mr. Nash is a 72-year-old patient with diabetes and end-stage renal disease. He is concurrently being treated for persistent osteomyelitis of the fingers of his right hand. He has significant chronic venous stasis changes to his lower extremities and has known poor perfusion previously. He had been in a [place] [facility] until one month ago after his last admission for osteomyelitis. The patient states over last 2 days has become increasingly weak name able to ambulate even with assistance and today has developed dry heaves recently unable to take any liquids or nutrition. This makes his diabetic management challenging at home. Patient has a draining right calcaneal Achilles tendon area ulceration. He has marked scaling and cracking to both feet with delayed capillary refill to his left foot in the emergency department he's found to be hyperkalemic but he is too weak to even assist with two person for transfers. He is admitted for concern of a diabetic foot ulceration that's infected, hyperkalemia and weakness Patient is a Monday dialysis patient scheduled for dialysis tomorrow The patient is currently on suppressive antibiotic therapy with the of the wound care center Past Medical/Surgical History Medical Problems: (1) CONGESTIVE HEART FAILURE NOS Status: Resolved (2) DIAB W OTH SPEC MANIFEST, TYPE II OR UNSPEC TYPE, NOT UNCNTR Status: Chronic (3) Diabetes Status: Chronic (4) MAL NADEEM BLADDER-TRIGONE Status: Resolved (5) MORBID OBESITY Status: Chronic (6) Obstructive sleep apnea Status: Chronic (7) Peripheral vascular disease Status: Chronic (8) RENAL FAILURE NOS Status: Chronic Family History Patient reports no known family medical history. Family history significant for heart disease and hypertension Social History Smoking Status: Never Smoker Drug Use: none Marital Status: Housing status: lives with family Occupational Status: retired Immunizations History of Influenza Vaccine: Unknown History of Tetanus Vaccine?: Unknown History of Pneumococcal: Unknown History of Hepatitis B Vaccine: Unknown Multi-Drug Resistant Organisms History of MDRO: No Allergies Coded Allergies: No Known Allergies (Verified , 04/13/17) Home Medications Scheduled Allopurinol (Zyloprim), 100 MG PO QAM Aspirin (Aspirin Ec), 81 MG PO QAM Bisacodyl (Dulcolax), 1 TAB PO UD Calcium Acetate (Phoslo 667 Mg), 4 TABS PO TIDM Calcium Acetate (Phoslo 667 Mg), 3 CAP PO UD Cephalexin Monohydrate (Cephalexin), 1 TAB PO TID Cinacalcet (Sensipar), 60 MG PO DAILY Doxycycline Hyclate (Doxycycline Hyclate), 1 TAB PO BID Gabapentin (Neurontin), 1 CAP PO QPM Home O2 Therapy (Oxygen), 4 LITERS NA CONTINOUS Insulin Aspart (Novolog Flexpen), 0 UNITS SC AC Insulin Glargine (Toujeo Solostar), 50 UNITS SC QAM Levothyroxine Sodium (Levothyroxine Sodium), 1 TAB PO DAILYBB Multiple Vitamins W/ Minerals (Therems M), 1 TAB PO QAM Polyethylene Glycol 3350 (Miralax), 17 GM PO QAM Povidone-Iodine (Betadine), 1 DOSE TOP QAM Simvastatin (Zocor), 40 MG PO QPM Warfarin Sodium (Coumadin), 5 MG PO HS Scheduled PRN Acetaminophen (Tylenol), 650 MG PO Q6 PRN for Pain or Fever Review of Systems ROS: Markedly obese, changes of chronic venous stasis No double vision blurry vision No problems with speech or swallowing No palpitations, chest pain or pressure Patient has baseline shortness of breath dyspnea on exertion and paroxysmal nocturnal dyspnea he typically wear CPAP at home No abdominal pain patient has had significant nausea at home without vomiting no diarrhea diarrhea c but occasional constipation The patient typically does not make urine No focal joint pain or muscle pain due to neuropathy of his feet His osteomyelitis areas of his hands or showing callus no drainage or erythema, his right posterior calf ulcer is draining a serosanguineous liquid is not foul- smelling there is no fluctuance of the tissue surrounding it No focused back pain patient has bilateral stocking glove neuropathy from his diabetes No changes in memory or confusion Physical Exam Vital Signs Date Time Temp Pulse Resp B/P (MAP) Pulse Ox O2 Delivery O2 Flow Rate FiO2 05/28/17 19:01 122/59 98 05/28/17 19:00 96 27 86 05/28/17 18:50 111 31 81 05/28/17 18:30 88 12 108/52 99 Nasal Cannula 4.0 05/28/17 18:00 89 10 99/57 96 Nasal Cannula 4.0 05/28/17 16:21 86 05/28/17 16:08 147 16 100/65 99 Nasal Cannula 4.0 05/28/17 15:45 4 Nasal Cannula 05/28/17 15:45 97 Nasal Cannula 4.0 05/28/17 15:28 37.9 87 22 97/52 97 Nasal Cannula 3.0 General Appearance: WD/WN, + moderate distress, + obese Head: normocephalic, atraumatic Eyes: PERRL, EOMI ENT: hearing grossly normal, pharynx normal Neck: supple, trachea midline Respiratory/Chest: + decreased breath sounds, + accessory muscle use Cardiovascular: regular rate, rhythm (bases), + systolic murmur Abdomen/GI: soft, + distended, + pertinent finding (patient's obesity prevents organ evaluation) Extremities/Musculoskelatal: + pedal edema, + slow capillary refill, + swelling , + pertinent finding (changes of chronic venous stasis right posterior foot wound approximately 3 cm x 1 similar deep) Neurologic/Psych: alert, oriented x 3 Diagnostics Laboratory Results Results Past 24 Hours Test 05/28/17 16:44 05/28/17 16:56 Range/Units White Blood Count 8.81 4.8-10.8 K/uL Red Blood Count 3.88 4.7-6.1 M/uL Hemoglobin 10.8 14.0-18.0 g/dL Hematocrit 36.2 42-52 % Mean Corpuscular Volume 93.3 80-100 fL Mean Corpuscular Hemoglobin 27.8 25-34 pg Mean Corpuscular Hemoglobin Concent 29.8 32-36 g/dl Platelet Count 204 130-400 K/uL Mean Platelet Volume 10.3 7.4-10.4 fL Neutrophils (%) (Auto) 85.3 % Lymphocytes (%) (Auto) 6.5 % Monocytes (%) (Auto) 5.2 % Eosinophils (%) (Auto) 2.7 % Basophils (%) (Auto) 0.1 % Neutrophils # (Auto) 7.51 1.4-6.5 K/uL Lymphocytes # (Auto) 0.57 1.2-3.4 K/uL Monocytes # (Auto) 0.46 0.11-0.59 K/uL Eosinophils # (Auto) 0.24 0-0.5 K/uL Basophils # (Auto) 0.01 0-0.2 K/uL RDW Standard Deviation 64.4 36.4-46.3 fL RDW Coefficient of Variation 18.8 11.5-14.5 % Immature Granulocyte % (Auto) 0.2 % Immature Granulocyte # (Auto) 0.02 0.00-0.02 K/uL Prothrombin Time 29.7 9.0-12.0 SECONDS Prothromb Time International Ratio 2.7 0.9-1.1 Activated Partial Thromboplast Time 58.0 21.0-31.0 SECONDS Partial Thromboplastin Ratio 2.2 Sodium Level 131 136-145 mmol/L Potassium Level 6.5 3.5-5.1 mmol/L Chloride Level 92 98-107 mmol/L Carbon Dioxide Level 34 21-32 mmol/L Anion Gap 5.0 3-11 mmol/L Blood Urea Nitrogen 63 7-18 mg/dl Creatinine 8.20 0.60-1.40 mg/dl Est Creatinine Clear Calc Drug Dose 11.8 ml/min Estimated GFR () 6.8 Estimated GFR (Non- 5.9 BUN/Creatinine Ratio 7.6 10-20 Random Glucose 108 70-99 mg/dl Calcium Level 8.7 8.5-10.1 mg/dl Total Bilirubin 0.5 0.2-1 mg/dl Aspartate Amino Transf (AST/SGOT) 51 15-37 U/L Alanine Aminotransferase (ALT/SGPT) 82 12-78 U/L Alkaline Phosphatase 74 45-117 U/L Total Protein 7.3 6.4-8.2 gm/dl Albumin 3.3 3.4-5.0 gm/dl Globulin 4.0 2.5-4.0 gm/dl Albumin/Globulin Ratio 0.8 0.9-2 Bedside Lactic Acid Venous 1.59 0.90-1.70 mmol/L Microbiology Results 05/28/17 Blood Culture, Received Pending 05/28/17 Blood Culture, Received Pending Diagnostic Radiology Hyperkalemia as noted other (mild congestive change from volume overload likely because it's today since his last dialysis session) other (normal sinus rhythm without any peaked T wave or Q wave changes from his hyperkalemia) Impression Assessment and Plan 72-year-old male end-stage renal disease diabetic who presents with a diabetic foot infection For the diabetic foot infection vancomycin and Zosyn will be started, wound cultures blood cultures are obtained, wound nurse will see him dress, infectious disease will be evaluated due to his multiple infections in the past the patient with a plain film of his foot if there is concern for approximately myelitis CT scan may be undertaken Because of the concern of vascular compromise and arterial Doppler of the undertaken and a vascular surgery consult will be undertaken to see if a peripheral arterial procedure could improve flow, Dr. Gore is evaluated For diabetes the patient's intake has been variable we'll employ the pharmacy glycemic management team to adjust his long-acting insulin and insulin sliding scale has been begun to cover him this evening For his obesity hypoventilation syndrome/sleep apnea the patient be started On CPAP and the hospital supplied unit until his family can supply his own For his end-stage renal disease and hyperkalemia there is no acute changes will give him some Kayexalate have Dr. Valente consulted for persistent hemodialysis treatments For his atrial fibrillation is rate controlled at this time he's anticoagulated with Coumadin and his INR is therapeutic we'll continue this is not on any rate controlling medications. This will also serve as DVT prevention is Patient is a full code VTE Prophylaxis VTE Risk Assessment Done? Y/N: Yes Risk Level: Moderate Given or contraindicated: Warfarin (Coumadin)
[2017-05-28] MEDS ORDERED: VANCOMYCIN CONSULT ACTIVE PRN (21:10)
--- NOTE | 2017-05-28 21:37 | EMERGENCY ROOM VISIT NOTE ---
History Report prepared by Hue: Aaron Delaney Under the Supervision of: Dr. Jacques Pardo M.D. First contact with patient: 15:45 Chief Complaint: SHORTNESS OF BREATH Stated Complaint: SOB, LOSS OF APPETITE History of Present Illness The patient is a 72 year old male who presents to the Emergency Room with complaints of persistent weakness that started 2 nights ago. He says that he has not been sleeping, and has been dry heaving. The patient adds that he has had a minimal appetite, in addition to dry diarrhea, as he has not been drinking much. The patient notes that he has had a bit of a cough. He states that he has been dealing with 3 wounds on fingers on his right hand, as well as a pressure ulcer on his right heel. He says that his right heel has been looking better. The patient has been treated at the wound care clinic for those , and just started an unspecified antibiotic 2 days ago. The patient notes that he was given a 6-week course of Amoxicillin and Doxycycline at the wound care clinic before this. He adds that he has not been making any urine recently. The wound care clinic notes that the patient has osteomyelitis. The patient is on dialysis and says that he was last dialyzed 2 days ago. He denies any fevers or abdominal pain. Source of History: patient Onset: 2 nights ago Position: other (global - weakness) Quality: other (not been sleeping well, minimal appetite, not drinking much) Timing: other (persistent) Associated Symptoms: + cough, + diarrhea (dry), + urinary symptoms (not making any urine), No fevers, No vomiting, No abdominal pain Note: Associated symptoms: Dry heaving. Review of Systems See HPI for pertinent positives & negatives. A total of 10 systems reviewed and were otherwise negative. Past Medical & Surgical Medical Problems: (1) Acute exacerbation of CHF (congestive heart failure) (2) Atrial fibrillation with slow ventricular response (3) CONGESTIVE HEART FAILURE NOS (4) DIAB W OTH SPEC MANIFEST, TYPE II OR UNSPEC TYPE, NOT UNCNTR (5) Diabetes (6) diabetic foot infectoin (7) Diabetic foot ulcer (8) Diabetic peripheral neuropathy associated with type 2 diabetes mellitus (9) Edema (10) Loss of sensation (11) MAL NADEEM BLADDER-TRIGONE (12) MORBID OBESITY (13) Obstructive sleep apnea (14) Peripheral vascular disease (15) RENAL FAILURE NOS (16) SIRS (systemic inflammatory response syndrome) Family History Patient reports no known family medical history. Social History Smoking Status: Never Smoker Alcohol Use: none Drug Use: none Marital Status: Housing Status: lives with family Occupation Status: retired Current/Historical Medications Scheduled Allopurinol (Zyloprim), 100 MG PO QAM Aspirin (Aspirin Ec), 81 MG PO QAM Bisacodyl (Dulcolax), 1 TAB PO UD Calcium Acetate (Phoslo 667 Mg), 4 TABS PO TIDM Calcium Acetate (Phoslo 667 Mg), 3 CAP PO UD Cephalexin Monohydrate (Cephalexin), 1 TAB PO TID Cinacalcet (Sensipar), 60 MG PO DAILY Doxycycline Hyclate (Doxycycline Hyclate), 1 TAB PO BID Gabapentin (Neurontin), 1 CAP PO QPM Home O2 Therapy (Oxygen), 4 LITERS NA CONTINOUS Insulin Aspart (Novolog Flexpen), 0 UNITS SC AC Insulin Glargine (Toujeo Solostar), 50 UNITS SC QAM Levothyroxine Sodium (Levothyroxine Sodium), 1 TAB PO DAILYBB Multiple Vitamins W/ Minerals (Therems M), 1 TAB PO QAM Polyethylene Glycol 3350 (Miralax), 17 GM PO QAM Povidone-Iodine (Betadine), 1 DOSE TOP QAM Simvastatin (Zocor), 40 MG PO QPM Warfarin Sodium (Coumadin), 5 MG PO HS Scheduled PRN Acetaminophen (Tylenol), 650 MG PO Q6 PRN for Pain or Fever Allergies Coded Allergies: No Known Allergies (Verified , 04/13/17) Physical Exam Vital Signs Date Time Temp Pulse Resp B/P (MAP) Pulse Ox O2 Delivery O2 Flow Rate FiO2 05/28/17 19:01 122/59 98 05/28/17 19:00 96 27 86 05/28/17 18:50 111 31 81 05/28/17 18:30 88 12 108/52 99 Nasal Cannula 4.0 05/28/17 18:00 89 10 99/57 96 Nasal Cannula 4.0 05/28/17 16:21 86 05/28/17 16:08 147 16 100/65 99 Nasal Cannula 4.0 05/28/17 15:45 4 Nasal Cannula 05/28/17 15:45 97 Nasal Cannula 4.0 05/28/17 15:28 37.9 87 22 97/52 97 Nasal Cannula 3.0 Physical Exam Constitutional: Vital signs reviewed. Patient is hypotensive. Eyes: Pupils are equal round reactive to light. Conjunctiva are noninjected. ENT: Pharynx is clear without erythema or exudate. Mucous membranes are moist. Neck supple without meningeal signs. Respiratory: Clear to auscultation bilaterally. Breath sounds are equal bilaterally. Cardiovascular: Regular rate and rhythm. No rubs or gallops. GI: Soft, nondistended and nontender. Bowel sounds are present. Musculoskeletal: Ulcerations to 2nd, 3rd, and 4th digits on right hand, no surrounding cellulitis. Slow capillary refill to the left foot. Integumentary: No cyanosis. Neurological: The patient is awake and alert. No focal deficits. Psychiatric: Normal affect. Medical Decision & Procedures ER Provider Diagnostic Interpretation: X-ray results as stated below per interpretation by me and the radiologist: SINGLE VIEW CHEST CLINICAL HISTORY: Sepsis. FINDINGS: An AP, portable, upright chest radiograph is compared to study dated 03/01/2017. The examination is severely degraded by large body habitus, patient rotation, portable technique. A vascular stent projects over the right upper chest. A single lead cardiac pacemaker is unchanged in position. The heart is enlarged and there is atherosclerotic calcification of the thoracic aorta. There is pulmonary vascular congestion and interstitial edema. Small pleural effusions are identified. Bibasilar airspace opacities are typical for atelectasis. A calcified granuloma is again seen in the right lower lung. No pneumothorax is identified. The skeletal structures are osteopenic. The bony thorax is grossly intact. IMPRESSION: 1. Cardiomegaly and cardiac pacemaker with evidence of congestive failure and interstitial edema. 2. Layering pleural effusions and bibasilar atelectasis. Electronically signed by: Garry Milian M.D. 05/28/2017 4:30 PM Dictated Date/Time: 05/28/2017 4:29 PM Laboratory Results 05/28/17 16:44 Red Blood Count 3.88, Mean Corpuscular Volume 93.3, Mean Corpuscular Hemoglobin 27.8, Mean Corpuscular Hemoglobin Concent 29.8, Mean Platelet Volume 10.3, Neutrophils (%) (Auto) 85.3, Lymphocytes (%) (Auto) 6.5, Monocytes (%) (Auto) 5.2, Eosinophils (%) (Auto) 2.7, Basophils (%) (Auto) 0.1, Neutrophils # (Auto) 7.51, Lymphocytes # (Auto) 0.57, Monocytes # (Auto) 0.46, Eosinophils # (Auto) 0.24, Basophils # (Auto) 0.01 05/28/17 16:44 Test 05/28/17 16:44 05/28/17 16:56 White Blood Count 8.81 K/uL (4.8-10.8) Red Blood Count 3.88 M/uL (4.7-6.1) Hemoglobin 10.8 g/dL (14.0-18.0) Hematocrit 36.2 % (42-52) Mean Corpuscular Volume 93.3 fL (80-100) Mean Corpuscular Hemoglobin 27.8 pg (25-34) Mean Corpuscular Hemoglobin Concent 29.8 g/dl (32-36) Platelet Count 204 K/uL (130-400) Mean Platelet Volume 10.3 fL (7.4-10.4) Neutrophils (%) (Auto) 85.3 % Lymphocytes (%) (Auto) 6.5 % Monocytes (%) (Auto) 5.2 % Eosinophils (%) (Auto) 2.7 % Basophils (%) (Auto) 0.1 % Neutrophils # (Auto) 7.51 K/uL (1.4-6.5) Lymphocytes # (Auto) 0.57 K/uL (1.2-3.4) Monocytes # (Auto) 0.46 K/uL (0.11-0.59) Eosinophils # (Auto) 0.24 K/uL (0-0.5) Basophils # (Auto) 0.01 K/uL (0-0.2) RDW Standard Deviation 64.4 fL (36.4-46.3) RDW Coefficient of Variation 18.8 % (11.5-14.5) Immature Granulocyte % (Auto) 0.2 % Immature Granulocyte # (Auto) 0.02 K/uL (0.00-0.02) Prothrombin Time 29.7 SECONDS (9.0-12.0) Prothromb Time International Ratio 2.7 (0.9-1.1) Activated Partial Thromboplast Time 58.0 SECONDS (21.0-31.0) Partial Thromboplastin Ratio 2.2 Anion Gap 5.0 mmol/L (3-11) Est Creatinine Clear Calc Drug Dose 11.8 ml/min Estimated GFR () 6.8 Estimated GFR (Non- 5.9 BUN/Creatinine Ratio 7.6 (10-20) Calcium Level 8.7 mg/dl (8.5-10.1) Total Bilirubin 0.5 mg/dl (0.2-1) Aspartate Amino Transf (AST/SGOT) 51 U/L (15-37) Alanine Aminotransferase (ALT/SGPT) 82 U/L (12-78) Alkaline Phosphatase 74 U/L (45-117) Total Protein 7.3 gm/dl (6.4-8.2) Albumin 3.3 gm/dl (3.4-5.0) Globulin 4.0 gm/dl (2.5-4.0) Albumin/Globulin Ratio 0.8 (0.9-2) Bedside Lactic Acid Venous 1.59 mmol/L (0.90-1.70) Laboratory results as reviewed by me. Medications Administered Medications (Trade) Dose Ordered Sig/Katiuska Route Start Time Stop Time Status Last Admin Dose Admin Sodium Chloride 1,000 ml @ 999 mls/hr Q1H1M STAT IV 05/28/17 15:54 05/28/17 16:54 DC 05/28/17 17:09 999 MLS/HR Vancomycin HCl (Vancomycin 1gm/ 270ml Nss) 1 gm NOW STAT IV 05/28/17 16:26 05/28/17 16:27 DC 05/28/17 17:17 1 GM Dextrose (Dextrose 50% 50ML Syringe) 50 ml NOW STAT IV 05/28/17 17:45 05/28/17 17:47 DC 05/28/17 18:30 50 ML Insulin Human Regular (novoLIN-R U-100 PER UNIT) 10 units NOW STAT IV 05/28/17 17:45 05/28/17 17:47 DC 05/28/17 18:31 10 UNITS Albuterol Sulfate (Ventolin 0.5% 2.5MG/0.5ML Neb) 2.5 mg NOW STAT INH 05/28/17 17:45 05/28/17 17:47 DC 05/28/17 19:08 2.5 MG Sodium Polystyrene Sulfonate (Kayexalate Susp) 30 gm NOW STAT PO 05/28/17 19:26 05/28/17 20:33 DC 05/28/17 21:23 30 GM ECG Indication: weakness Rate (beats per minute): 88 Rhythm: other (narrow complex rhythm) Findings: LAFB, other (RBBB) ED Course 1546: The patient was evaluated in room B4B. A complete history and physical exam was performed. 1554: Ordered NSS 1000 ml @ 999 mls/hr IV. 1601: Per the [employer] rec, the patient has been on Keflex, Doxycycline, and Amoxicillin. 1606: I reevaluated the patient and he clarified that he was on 6 weeks of Amoxicillin and Doxycycline for a bone infection to his right index finger. The patient adds that on the of this month, he was told that he had an infection to his ring finger and was placed on Keflex. 1610: I reevaluated the patient and his blood pressure is 100/65, and is getting a chest x-ray. 1626: Ordered Vancomycin 1 gm/270ml Nss 1 gm IV. 1639: I reevaluated the patient and the IV team is attempted IV access. 1700: I reevaluated the patient and they are still trying to get IV access and blood work. 1719: I reevaluated the patient and discussed the test results with him and recommended that he be evaluated for further treatment. The patient verbally expressed understanding and agreement of the treatment plan. The patient will be evaluated for further treatment. 1722: I discussed the patient with Dr. [place] [facility] [place] - he will evaluate the patient for further treatment. 1745: Ordered Ventolin 0.5% 2.5MG/0.5ML Neb 2.5 mg INH, Novolin-R U-100 PER UNIT 10 units IV, Dextrose 50% 50ML Syringe 50 ml IV. 1746: The patient's potassium is 6.5 I ordered insulin, glucose, and albuterol. Medical Decision This is a 72-year-old male presents with malaise and fever. Differential diagnosis includes sepsis, SIRS, cellulitis, osteomyelitis, pneumonia. I did perform a limited focused review of portions of the patient's old chart on the electronic medical record. The patient was seen by Dr. Vincent at the wound care clinic on May 23, and has a wound on his right first finger as well as a pressure ulcer on his right heel, which were debrided. I did evaluate the patient as noted above. IV access was established. The patient was placed on a continuous bus driver/monitor. The patient was slightly hypotensive. He was given a liter normal saline IV. I did order and personally review the patient's 12-lead EKG and chest x-ray as described above. Blood cultures were ordered. I did order and review the patient's blood work as noted in the electronic medical record. He does have hyperkalemia. I did treat him with IV insulin with dextrose. He was also given an albuterol nebulizer. I did treat patient with vancomycin. I did discuss the case with the hospitalist and field case manager. Medication Reconcilliation Current Medication List: was personally reviewed by me Blood Pressure Screening Patient's blood pressure: Low blood pressure Consults Time Called: 1720 Consulting Physician: Dr. Missy NEWTON [employer] worker Returned Call: 1723 I discussed the patient with Dr. Missy NEWTON [employer] worker - he will evaluate the patient for further treatment. Impression Primary Impression: Febrile illness Additional Impressions: Failure of outpatient treatment Infection of right hand Infection of right foot End stage renal disease Hyperkalemia Scribe Attestation The scribe's documentation has been prepared under my direct and personally reviewed by me in its entirety. I confirm that the note above accurately reflects all work, treatment, procedures, and medical decision making performed by me. Departure Information Dispostion Being Evaluated By Hospitalist Sarthak Lopez M.D. (PCP) Patient Instructions My [facility] Problem Qualifiers
[2017-05-28] MEDS ORDERED: VANCOMYCIN INJ 2,000 MG in SODIUM CHLORIDE 0.9% 500ML 500 ML IV SCH (21:45)
[2017-05-28] MEDS: INSULIN ASPART 100 UNITS/ML 3 ML PEN SC SCH (22:00)
[2017-05-28] MEDS ORDERED: PIPERACILL/TAZOBAC IV 4.5 GM in DEXTROSE 5% 100ML 100 ML IV SCH (22:00)
[2017-05-28 22:21] VITALS: BP 106/68; PULSE 108; TEMP 37.2; O2SAT 99; Ht 177.8 cm; Wt 152.9 kg
[2017-05-28] MEDS ORDERED: PHARMACY GLYCEMIC MGMT CONSULT PRN (22:27)
--- NOTE | 2017-05-28 22:29 | DIAGNOSTIC IMAGING REPORT ---
RIGHT FOOT 2 VIEWS CLINICAL HISTORY: Right foot infection. FINDINGS: AP and lateral portable views of the right foot are obtained. No prior studies are available for comparison at the time of dictation. The skeletal structures are osteopenic. No fracture is seen. There is no bony erosion or periostitis identified to suggest osteomyelitis. Degenerative spurring is seen along the dorsal aspect of the tarsal bones. Mild arthritic change is seen at the first metatarsophalangeal joint. Soft tissue edema is present throughout the foot. There is advanced atherosclerotic calcification of the regional arteries. IMPRESSION: 1. Osteopenia and arthritic change as above. No acute bony abnormality is seen in the right foot. 2. Diffuse soft tissue edema suggests cellulitis. There is advanced atherosclerotic calcification of the regional arteries. Electronically signed by: Garry Milian M.D. 05/28/2017 10:28 PM Dictated Date/Time: 05/28/2017 10:26 PM
[2017-05-28] MEDS: SIMVASTATIN 40 MG TAB PO SCH (22:48)
[2017-05-28] MEDS: WARFARIN SOD 5 MG TAB PO SCH (22:49)
[2017-05-28] MEDS: GABAPENTIN 100 MG CAP PO SCH (22:49)
[2017-05-29] VITALS (28 sets, daily range): BP systolic 61–125; BP diastolic 35–69; PULSE 60–113; TEMP 36.9–37.9; O2SAT 92–99
[2017-05-29] MEDS ORDERED: DEXTROSE 50% 50 ML SYR IV PRN (03:30)
[2017-05-29] MEDS ORDERED: GLUCOSE 40% GEL 15 GM TUBE PO PRN (03:30)
[2017-05-29] MEDS ORDERED: GLUCAGON FOR INJ 1 MG VIAL SQ PRN (03:30)
[2017-05-29] MEDS ORDERED: GLUCOSE 10 TABS/TUBE PO PRN (03:30)
[2017-05-29] MEDS: LEVOTHYROXINE 50 MCG TAB PO SCH (04:52)
[2017-05-29 07:47] LABS: HEMATOCRIT 31.3 % (42-52); MEAN CELL VOLUME 92.3 fL (80-100); MEAN CORPUSCULAR HEMOGLOBIN 29.2 pg (25-34); MEAN CORPUSCULAR HGB CONC 31.6 g/dl (32-36); MEAN PLATELET VOLUME 10.5 fL (7.4-10.4); PLATELET COUNT 178 K/uL (130-400); RED BLOOD COUNT 3.39 M/uL (4.7-6.1); WHITE BLOOD COUNT 8.35 K/uL (4.8-10.8)
[2017-05-29 08:31] LABS: BUN/CREATININE RATIO 8.2 (10-20); CALCIUM 8.2 mg/dl (8.5-10.1); CREATININE 9.3 mg/dl (0.60-1.40); POTASSIUM 6.4 mmol/L (3.5-5.1)
[2017-05-29] MEDS ORDERED: INSULIN GLARGINE SOLOSTAR 100 UNITS/ML 3 ML PEN SC SCH (09:00)
[2017-05-29] MEDS ORDERED: BISACODYL 5 MG TABEC PO PRN (09:00)
[2017-05-29] MEDS: POLYETHYLENE (MIRALAX) 17 GM PACK PO SCH (09:00)
[2017-05-29] MEDS ORDERED: INSULIN GLARGINE 50 UNIT SC SCH (09:00)
[2017-05-29] MEDS: SENSIPAR~ORDER AWAITING ACTION SCH ×4 (09:00→23:30)
[2017-05-29] MEDS: PIPERACILL/TAZOBAC IV 4.5 GM in DEXTROSE 5% 100ML 100 ML IV SCH ×2 (09:02→21:30)
[2017-05-29] MEDS: CALCIUM ACETATE 667MG GELCAP PO SCH ×3 (09:02→17:28)
--- NOTE | 2017-05-29 09:02 | Clinical Documentation Query ---
ELENA Grant : CLINICAL DOCUMENTATION QUERIES QUERY 1 OF 2 Patient is a 72 year old male admitted for evaluation and treatment of weakness, dry heaves, and draining right calcaneal/Achilles tendon area diabetes associated ulceration. Foot radiograph demonstrated osteopenia, no acute osteomyelitis. However, "was suggestive of diffuse soft tissue edema suggestive of cellulitis". Wound and blood cultures have been obtained. He is being treated with Vancomycin and Zosyn. In your clinical opinion is this patient being managed for: ( x ) Cellulitis associated with right diabetic foot ulcer infection ( ) Other explanation of clinical findings (Please Explain) ( ) Unable to determine (Please Define) ( ) Need to Discuss ( ) Not Agree The medical record reflects the following clinical findings, treatment, and risk factors. Clinical Indicators: As above Treatment:Wound and blood cultures have been obtained. He is being treated with Vancomycin and Zosyn Risk Factors: Diabetic ulceration, PVD, obesity, sedentary lifestyle QUERY 2 OF 2 Documentation in H&P included note of 4L of continuous supplemental oxygen therapy. Additionally, physical exam noted "accessory muscle use" and respirations to 31 breaths/min. As appropriate, consider documentation as suggested below in order to capture the correct severity of illness and associated risk of mortality in your patient. In your clinical opinion is this patient being managed for: (x ) Acute and chronic respiratory failure with hypoxia ( ) Chronic respiratory failure with hypoxia ( ) Other explanation of clinical findings (Please Explain) ( ) Unable to determine (Please Define) ( ) Need to Discuss ( ) Not Agree The medical record reflects the following clinical findings, treatment, and risk factors. Clinical Indicators: As above Treatment: Supplemental oxygen, CPAP Risk Factors: Obesity hypoventilation syndrome, ESRD, CHF Please clarify and document your clinical opinion in the progress notes and discharge summary. Terms such as "probable", "suspected", "likely", "questionable", "possible", or "still to be ruled out" are acceptable. IF IN AGREEMENT, YOU MUST DOCUMENT ABOVE DIAGNOSTIC STATEMENT IN DAILY PROGRESS NOTES AND DISCHARGE SUMMARY. This document is not part of the patient's record. Thank You, Vicente Andres, KELLEY [phone]
[2017-05-29] MEDS: ASPIRIN 81 MG ECTAB PO SCH (09:03)
[2017-05-29] MEDS: ALLOPURINOL 100 MG TAB PO SCH (09:03)
--- NOTE | 2017-05-29 09:17 | Pharmacy Progress Note ---
Glycemic Control Intl Consult Date of Service May 29, 2017. Scope Glycemic Pharmacist consulted by Dr Louis on 05/28/17 for glycemic control and to write orders per [facility] inpatient glycemic control protocol Objective Weight (Kilograms): 145.600 Accuchecks BSG (last 24hrs): Test 05/28/17 16:44 05/28/17 21:26 05/29/17 06:37 05/29/17 07:06 Random Glucose 108 mg/dl (70-99) 122 mg/dl (70-99) Bedside Glucose 126 mg/dl (70-99) 120 mg/dl (70-99) Laboratory Data (last 24hrs) Test 05/28/17 16:44 05/29/17 07:06 Anion Gap 5.0 mmol/L 11.0 mmol/L BUN/Creatinine Ratio 7.6 8.2 Blood Urea Nitrogen 63 mg/dl 77 mg/dl Creatinine 8.20 mg/dl 9.30 mg/dl Potassium Level 6.5 mmol/L 6.4 mmol/L Sodium Level 131 mmol/L 131 mmol/L White Blood Count 8.81 K/uL 8.35 K/uL Red Blood Count 3.88 M/uL Hemoglobin 10.8 g/dL Hematocrit 36.2 % Mean Corpuscular Volume 93.3 fL Mean Corpuscular Hemoglobin 27.8 pg Mean Corpuscular Hemoglobin Concent 29.8 g/dl Platelet Count 204 K/uL Mean Platelet Volume 10.3 fL Neutrophils (%) (Auto) 85.3 % Lymphocytes (%) (Auto) 6.5 % Monocytes (%) (Auto) 5.2 % Eosinophils (%) (Auto) 2.7 % Basophils (%) (Auto) 0.1 % Neutrophils # (Auto) 7.51 K/uL Lymphocytes # (Auto) 0.57 K/uL Monocytes # (Auto) 0.46 K/uL Eosinophils # (Auto) 0.24 K/uL Basophils # (Auto) 0.01 K/uL Recent Pertinent Medications Outpatient Anti-diabetic Regimen: * Toujeo 50 units daily * Novolog CF:15, CR:5 Goal 125-150 Risk Factors for Insulin Resistance: * Infection * Diet Assessment & Plan ASSESSMENT: * 72 yo diabetic M with ESRD on HD MWF, admitted with diabetic foot infection * Patient known to glycemic service from prior admissions * Plan was to utilize Lantus as Toujeo is non-formulary and has had more associated hypoglycemia, but patient is refusing any deviation from home regimen (similar to last admission) * Will initiate Novolog similar to home regimen and tighten if necessary * Patient's A1c will not be ordered by pharmacy * A1c likely unreliable in ESRD patients d/t interactions between the A1c analyzing technique and high levels of urea in ESRD, reduced RBC life span, iron deficiency anemia, and EPO administration. HbA1c > 7.5% in ESRD patient may overestimate the extent of hyperglycemia in ESRD patients. * ADA & AACE recommend a goal blood sugar range 140-180 mg/dl for the majority of critically ill & non-critically ill patients. However, more stringent targets may be selected in individual cases. PLAN FOR INPATIENT GLYCEMIC CONTROL: * Basal insulin with TOUJEO 50 units SQ daily * Correctional Insulin with NOVOLOG per scale ACHS or Q6hrs while NPO * Goal Range: Low 110 mg/dL - High 150 mg/dL * Correction Factor: 25 mg/dL/unit * Nutritional / Prandial insulin per carb ratio of 1 unit per 10 grams CHO consumed * Please note that the plan above was derived based on current level of insulin resistance and hospital stress. These recommendations are appropriate for inpatient admission only. Plan of care upon discharge will need to be reassessed to avoid potential outpatient hypo/hyperglycemia. Thank you.
--- NOTE | 2017-05-29 09:35 | Nephrology Consultation ---
Nephrology Consultation Date & Providers Date of Consultation: May 29, 2017. Primary Care Provider: Sarthak Gracia M.D. Referring Provider: Reason for Consultation ESRD requiring HD History of Present Illness Mr. Cabrera was seen & examined at the request of Dr. Louis to provide inpatient HD. Medical records in the hospital EMR were reviewed and are summarized as follows: Mr. Cabrera has ESRD due to cardiorenal syndrome and has been on IHD since 2007 ([facility] [place] 4.5 hrs F-250NR 2K 2Ca EDW 145 kg) , AODM, diabetic retinopathy, autonomic insufficiency, anemia, atrial fibrillation on Warfarin therapy, h/o bradycardia requiring pacemaker insertion. Mr. Cabrera was last dialyzed as an outpatient on Monday. Review of records from the dialysis unit show that his SBP was 80 - 90 mm Hg but there were no other complications. He did attain his EDW of 145 kg. Over the weekend Mr. Cabrera has suffered from nausea and progressive weakness. Last night he presented to the ED for evaluation. He was found to have mild CHF and hyperkalemia. He was admitted to the hospital for ongoing medical management. Past Medical/Surgical History Medical: # ESRD on IHD # AODM w/ retinopathy # ASCVD # Atrial fibrillation # Bradycardia s/p pacemaker # JORJE # Anemia # TCCA s/p TURBT # sHPT Surgical: # R upper arm AVF # Pacemaker Allergies Coded Allergies: No Known Allergies (Verified , 04/13/17) Inpatient Medications Current Inpatient Medications Medications (Trade) Dose Ordered Sig/[place] Route Start Time Stop Time Status Last Admin Dose Admin Allopurinol (Zyloprim Tab) 100 mg QAM PO 05/29/17 09:00 06/28/17 08:59 05/29/17 09:03 100 MG Aspirin (Ecotrin Tab) 81 mg QAM PO 05/29/17 09:00 06/28/17 08:59 05/29/17 09:03 81 MG Bisacodyl (Dulcolax Tab) 5 mg DAILY PRN PO 05/29/17 09:00 06/28/17 08:59 Calcium Acetate (Phoslo Cap) 2,001 mg TIDM PRN PO 05/29/17 07:30 06/28/17 07:29 Calcium Acetate (Phoslo Cap) 2,668 mg TIDM PO 05/29/17 07:30 06/28/17 07:59 05/29/17 09:02 2,668 MG Gabapentin (Neurontin Cap) 100 mg QPM PO 05/28/17 21:00 06/27/17 20:59 05/28/17 22:49 100 MG Levothyroxine Sodium (Synthroid Tab) 50 mcg DAILYBB PO 05/29/17 06:00 06/28/17 06:59 05/29/17 04:52 50 MCG Polyethylene (Miralax Powder Packet) 17 gm QAM PO 05/29/17 09:00 06/28/17 08:59 Simvastatin (Zocor Tab) 40 mg QPM PO 05/28/17 21:00 06/27/17 20:59 05/28/17 22:48 40 MG Warfarin Sodium (Coumadin Tab) 5 mg HS PO 05/28/17 21:00 06/27/17 20:59 05/28/17 22:49 5 MG Miscellaneous Information (Order Awaiting Action) 1 ea QS N/A 05/29/17 00:00 06/28/17 00:00 Miscellaneous Information (Consult Glycemic Management Pharmacy) 1 ea DAILY PRN N/A 05/28/17 22:27 06/27/17 22:26 Insulin Aspart (novoLOG ASPART) SLIDING SCALE PARAMETER ACHS SC 05/28/17 21:00 06/27/17 20:59 Acetaminophen (Tylenol Tab) 650 mg Q4H PRN PO 05/28/17 19:45 06/27/17 19:44 Al Hydrox/Mg Hydrox/Simethicone (Maalox Max Susp) 15 ml Q4H PRN PO 05/28/17 19:45 06/27/17 19:44 Ondansetron HCl (Zofran Inj) 4 mg Q6H PRN IV 05/28/17 19:45 06/27/17 19:44 Vancomycin HCl (Consult) 1 ea UD PRN N/A 05/28/17 21:10 06/27/17 21:09 Piperacillin Sod/ Tazobactam Sod 4.5 gm/Dextrose 120 ml @ 30 mls/hr Q12@0900,2100 IV 05/29/17 09:00 06/08/17 08:59 05/29/17 09:02 30 MLS/HR Glucose (Glucose 40% Gel) 15-30 GRAMS 15 GRAMS... UD PRN PO 05/29/17 03:30 06/28/17 03:29 Glucose (Glucose Chew Tab) 4-8 Tablets 4 Tabl... UD PRN PO 05/29/17 03:30 06/28/17 03:29 Dextrose (Dextrose 50% 50ML Syringe) 25-50ML OF 50% DW IV FOR... UD PRN IV 05/29/17 03:30 06/28/17 03:29 Glucagon (Glucagon Inj) 1 mg UD PRN SQ 05/29/17 03:30 06/28/17 03:29 Insulin Glargine (Lantus Solostar Pen) 40 units DAILY SC 05/30/17 09:00 06/29/17 08:59 Heparin Sodium (Porcine) (Heparin Iv Bolus) 2,000 unit ONE IV 05/29/17 09:30 05/29/17 09:31 UNV Heparin Sodium (Porcine) (Heparin Iv Bolus) 500 unit Q1H IV 05/29/17 09:30 05/29/17 11:31 UNV Epoetin Ramón (Procrit Inj) 10,000 units ONE ONCE IV. 05/29/17 09:30 05/29/17 09:31 UNV Family History Negative for CKD / ESRD Social History Smoking Status: Former Smoker Drug Use: none Marital Status: Housing Status: lives with family Occupation: retired . Resides in [place], [place]. 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 Review of Systems Constitutional: No fever Respiratory: No cough, No sputum Cardiovascular: No chest pain Abdomen: + nausea, No pain A complete review of systems was performed. Pertinent positives are noted above. All other systems are negative. Physical Exam Date Time Temp Pulse Resp B/P (MAP) Pulse Ox O2 Delivery O2 Flow Rate FiO2 05/29/17 07:00 37.4 102 20 81/54 (63) 98 Nasal Cannula 4.5 05/29/17 04:30 37.9 97 26 82/58 (66) 95 Nasal Cannula 4.0 05/29/17 04:30 95 Nasal Cannula 4.0 05/29/17 00:15 99 Nasal Cannula 4.0 05/29/17 00:00 36.9 103 22 108/69 (82) Nasal Cannula 4.0 05/28/17 22:21 37.2 108 22 106/68 99 Nasal Cannula 4.0 05/28/17 19:01 122/59 98 05/28/17 19:00 96 27 86 05/28/17 18:50 111 31 81 05/28/17 18:30 88 12 108/52 99 Nasal Cannula 4.0 05/28/17 18:00 89 10 99/57 96 Nasal Cannula 4.0 05/28/17 16:21 86 05/28/17 16:08 147 16 100/65 99 Nasal Cannula 4.0 05/28/17 15:45 4 Nasal Cannula 05/28/17 15:45 97 Nasal Cannula 4.0 05/28/17 15:28 37.9 87 22 97/52 97 Nasal Cannula 3.0 General Appearance: no apparent distress Head: normocephalic, atraumatic Eyes: PERRL, EOMI Neck: no adenopathy Respiratory/Chest: + rales Cardiovascular: + irregularly irregular Abdomen/GI: non tender, soft Extremities/Musculoskelatal: + pertinent finding (tense lower extremity edema w / pretibial hemosiderin staining. R ankle with dressing in place. R upper arm AVF + bruit) Neurologic/Psych: alert, oriented x 3 Laboratory Results Last 24 Hours Test 05/28/17 16:44 05/28/17 16:56 05/28/17 21:26 05/29/17 06:37 White Blood Count 8.81 K/uL Red Blood Count 3.88 M/uL Hemoglobin 10.8 g/dL Hematocrit 36.2 % Mean Corpuscular Volume 93.3 fL Mean Corpuscular Hemoglobin 27.8 pg Mean Corpuscular Hemoglobin Concent 29.8 g/dl Platelet Count 204 K/uL Mean Platelet Volume 10.3 fL Neutrophils (%) (Auto) 85.3 % Lymphocytes (%) (Auto) 6.5 % Monocytes (%) (Auto) 5.2 % Eosinophils (%) (Auto) 2.7 % Basophils (%) (Auto) 0.1 % Neutrophils # (Auto) 7.51 K/uL Lymphocytes # (Auto) 0.57 K/uL Monocytes # (Auto) 0.46 K/uL Eosinophils # (Auto) 0.24 K/uL Basophils # (Auto) 0.01 K/uL RDW Standard Deviation 64.4 fL RDW Coefficient of Variation 18.8 % Immature Granulocyte % (Auto) 0.2 % Immature Granulocyte # (Auto) 0.02 K/uL Prothrombin Time 29.7 SECONDS Prothromb Time International Ratio 2.7 Activated Partial Thromboplast Time 58.0 SECONDS Partial Thromboplastin Ratio 2.2 Sodium Level 131 mmol/L Potassium Level 6.5 mmol/L Chloride Level 92 mmol/L Carbon Dioxide Level 34 mmol/L Anion Gap 5.0 mmol/L Blood Urea Nitrogen 63 mg/dl Creatinine 8.20 mg/dl Est Creatinine Clear Calc Drug Dose 11.8 ml/min Estimated GFR () 6.8 Estimated GFR (Non- 5.9 BUN/Creatinine Ratio 7.6 Random Glucose 108 mg/dl Calcium Level 8.7 mg/dl Total Bilirubin 0.5 mg/dl Aspartate Amino Transf (AST/SGOT) 51 U/L Alanine Aminotransferase (ALT/SGPT) 82 U/L Alkaline Phosphatase 74 U/L Total Protein 7.3 gm/dl Albumin 3.3 gm/dl Globulin 4.0 gm/dl Albumin/Globulin Ratio 0.8 Bedside Lactic Acid Venous 1.59 mmol/L Bedside Glucose 126 mg/dl 120 mg/dl Test 05/29/17 07:06 05/29/17 08:51 White Blood Count 8.35 K/uL Red Blood Count 3.39 M/uL Hemoglobin 9.9 g/dL Hematocrit 31.3 % Mean Corpuscular Volume 92.3 fL Mean Corpuscular Hemoglobin 29.2 pg Mean Corpuscular Hemoglobin Concent 31.6 g/dl RDW Standard Deviation 63.2 fL RDW Coefficient of Variation 18.7 % Platelet Count 178 K/uL Mean Platelet Volume 10.5 fL Sodium Level 131 mmol/L Potassium Level 6.4 mmol/L Chloride Level 93 mmol/L Carbon Dioxide Level 29 mmol/L Anion Gap 11.0 mmol/L Blood Urea Nitrogen 77 mg/dl Creatinine 9.30 mg/dl Est Creatinine Clear Calc Drug Dose 10.4 ml/min Estimated GFR () 5.9 Estimated GFR (Non- 5.1 BUN/Creatinine Ratio 8.2 Random Glucose 122 mg/dl Calcium Level 8.2 mg/dl Random Vancomycin Level 26.5 mcg/ml Impression (1) ESRD (end stage renal disease) on dialysis (2) Hyperkalemia (3) CONGESTIVE HEART FAILURE NOS (4) Edema (5) Atrial fibrillation with slow ventricular response (6) Peripheral vascular disease (7) Hypotension Mr. Cabrera was admitted to the hospital for evaluation of CHF, weakness and hyperkalemia. He has ESRD requiring MWF HD. Recommendations END STAGE RENAL DISEASE: -- Will provide HD today w/ low dose heparin. -- CXR film reviewed this am. Patient has mild CHF w/ small bilateral effusions. Will attempt to challenge EDW ANEMIA: -- Will provide ESAU w/ HD today ID: -- Await ID input. Patient is on empiric antibiotic therapy PVD: -- Await wound care input of R heel and lesions involving the fingers of left hand
[2017-05-29 09:36] LABS: INR 2.9 (0.9-1.1); PROTHROMBIN TIME (PATIENT) 32.6 SECONDS (9.0-12.0)
[2017-05-29] MEDS: INSULIN ASPART 100 UNITS/ML 3 ML PEN SC SCH ×4 (09:48→21:32)
--- NOTE | 2017-05-29 10:27 | Progress Note ---
Progress Note Date of Service May 29, 2017. Progress Note ID Consult Dictated #[id number] A/P: 1.Finger ulcer - MSSA 2. non healing venous stasis ulcers - recently treated with 6 weeks abx -continue IV abx for now, follow blood cultures -Will likely require continued abx for finger infection with MSSA, hopefully can use po abx -will follow, thank you
[2017-05-29] MEDS ORDERED: EPOETIN ALFA 10,000 UNITS/ML VIAL IV. SCH (11:00)
[2017-05-29] MEDS ORDERED: HEPARIN SOD (PORCINE) 1000 UNIT/ML 10 ML VIAL IV SCH (11:00)
--- NOTE | 2017-05-29 11:06 | INFECT. DISEASE CONSULTATION ---
DATE OF CONSULTATION: 05/29/2017 REQUESTING PHYSICIAN: Dr. Louis. HISTORY OF PRESENT ILLNESS: This is a 72-year-old gentleman who was admitted yesterday after he states he was not feeling well. He was recently being followed by infectious diseases for lower extremity infection. He had cultures from 02/24/2017 which grew MSSA. He was on chronic antibiotics which were recently stopped within a month. He states his wounds have been improving. He does follow routinely at the wound care center as well. He also is on dialysis Monday, Monday and Monday. He states he has not missed any dialysis. He was found to have an elevated creatinine as well as an elevated potassium. He is pending dialysis later today. He states overall he is feeling weak and fatigued. He did have some nausea but no vomiting prior to admission. It seems that this has resolved. His most recent cultures were done in the wound center on 05/23/2017 which grew MSSA from the finger. Blood cultures were obtained in the Emergency Room yesterday and are pending. His white blood cell count has been within normal limits. His potassium today is elevated at 6.4 and his creatinine elevated at 9.3. He was placed on empiric antibiotics with Zosyn and vancomycin. His vancomycin was a one-time dose, a level today is 26.5. No wound cultures have been obtained during this admission. His last wound center note is dated 05/23/2017. At that time, he underwent debridement of the finger. It is unclear if he was placed back on antibiotics at that time from the wound center. He was followed by nephrology this morning and will undergo dialysis later today. On my examination, he is out of bed to chair. He denies any chest pain, shortness of breath or cough. He denies any abdominal pain but did have nausea with vomiting prior to admission. He denies any pain in his lower extremities. He denies any increased drainage. All remaining review of systems are reviewed and unremarkable. MEDICAL HISTORY: Significant for congestive heart failure, type 2 diabetes, morbid obesity, obstructive sleep apnea, peripheral vascular disease, nonhealing wounds and end-stage renal disease, on dialysis. FAMILY HISTORY: Noncontributory. SOCIAL HISTORY: Negative for tobacco use, alcohol use or drug use. ALLERGIES: He has no known drug allergies. CURRENT MEDICATIONS: Include insulin, heparin, Procrit, allopurinol, aspirin, Dulcolax, MiraLax, Zosyn, calcium, Synthroid, a one-time dose of vancomycin yesterday, Neurontin, Zocor, Coumadin, Tylenol, Maalox. PHYSICAL EXAMINATION: VITAL SIGNS: T-max is 37.9, heart rate is 102, respiratory rate 20, blood pressure is 81/54, oxygen saturation is 98% on 4-1/2 liters nasal cannula. GENERAL: He is awake, alert and oriented x3. He is somewhat lethargic but appropriate. HEENT: Mucous membranes are moist. HEART: Regular. LUNGS: Clear but decreased at the bases bilaterally. ABDOMEN: Soft and nondistended. EXTREMITIES: There are chronic venous stasis ulcers bilaterally. There is no edema. Dressings are clean, dry and intact. LABORATORY STUDIES: CBC today reveals white blood cell count of 8.3, hemoglobin 9.9, platelets are 178. Chemistry panel reveals sodium of 131, potassium 6.4, chloride 93, bicarbonate 29, BUN 77, creatinine 9.3, glucose is 122. Blood cultures are pending. Most recent finger culture grew MSSA. He has a history of enterococcus as well as MSSA from lower extremity wounds, previously treated with 6 weeks of oral antibiotics. Foot x-ray done on 05/28/2017 shows edema and no evidence of osteomyelitis. Chest x-ray done in the Emergency Room shows effusions and bibasilar atelectasis. ASSESSMENT AND PLAN: Finger ulceration with methicillin-sensitive Staphylococcus aureus. He can be continued on current antibiotics pending the results of blood cultures. He likely will be transitioned to antibiotics orally if his blood cultures are negative. We will follow along with you. Thank you for this consultation.
[2017-05-29] MEDS ORDERED: NURSING VERBAL MED ORDER ONE (12:15)
--- NOTE | 2017-05-29 12:16 | DIAGNOSTIC IMAGING REPORT ---
RIGHT LOWER EXTREMITY ARTERIAL DOPPLER ULTRASOUND CLINICAL HISTORY: Wound. Possible vascular intervention. COMPARISON STUDY: Bilateral lower extremity arterial Doppler ultrasound July 17, 2014. FINDINGS: Ankle to brachial indices could not be obtained as the vessels were noncompressible. Digital pressures could not be obtained in this patient. No elevated velocities were identified within the right lower extremity. There is biphasic flow within the right common femoral, superficial femoral, popliteal, posterior tibial, anterior tibial, peroneal and dorsalis pedis vessels. No vessel occlusion is identified. There is mild to moderate atherosclerotic plaque. IMPRESSION: 1. No evidence of a hemodynamically significant stenosis within the right lower extremity. No vessel occlusion identified by sonography. 2. Mild to moderate atherosclerotic plaque within the right lower extremity. Electronically signed by: Adin Mari M.D. 05/29/2017 12:15 PM Dictated Date/Time: 05/29/2017 12:12 PM
[2017-05-29] MEDS: INSULIN GLARGINE 300 UNIT/ML SC SCH (12:34)
[2017-05-29] MEDS: HEPARIN SOD (PORCINE) 1000 UNIT/ML 10 ML VIAL IV SCH ×3 (13:15→15:15)
--- NOTE | 2017-05-29 15:18 | Progress Note ---
Subjective Date of Service: May 29, 2017. Subjective this pt does not feel much better but did not have any dry heaves or vomiting, is weak but not able to transfer on his own and needing maximal assist Problem List Medical Problems: (1) Ambulatory dysfunction Status: Acute (2) End stage renal disease Status: Acute (3) Failure of outpatient treatment Status: Acute (4) Febrile illness Status: Acute (5) Hyperkalemia Status: Acute (6) Infection of right foot Status: Acute (7) Infection of right hand Status: Acute (8) Leukocytosis Status: Acute (9) Superficial injury of right index finger with infection Status: Acute (10) Ulcers of both lower extremities Status: Acute Review of Systems Constitutional: + weakness, + fatigue, No fever, No chills Respiratory: + dyspnea on exertion, No cough, No sputum, No shortness of breath Cardiac: + edema, No chest pain Abdomen: + nausea, + vomiting, No pain, No diarrhea, No constipation Musculoskeletal: + joint pain, + muscle pain, + swelling Skin: + new/changing skin lesions, + color change Objective Vital Signs Date Time Temp Pulse Resp B/P (MAP) Pulse Ox O2 Delivery O2 Flow Rate FiO2 05/29/17 04:30 37.9 97 26 82/58 (66) 95 Nasal Cannula 4.0 05/29/17 04:30 95 Nasal Cannula 4.0 05/29/17 00:15 99 Nasal Cannula 4.0 05/29/17 00:00 36.9 103 22 108/69 (82) Nasal Cannula 4.0 05/28/17 22:21 37.2 108 22 106/68 99 Nasal Cannula 4.0 05/28/17 19:01 122/59 98 05/28/17 19:00 96 27 86 05/28/17 18:50 111 31 81 05/28/17 18:30 88 12 108/52 99 Nasal Cannula 4.0 05/28/17 18:00 89 10 99/57 96 Nasal Cannula 4.0 05/28/17 16:21 86 05/28/17 16:08 147 16 100/65 99 Nasal Cannula 4.0 05/28/17 15:45 4 Nasal Cannula 05/28/17 15:45 97 Nasal Cannula 4.0 05/28/17 15:28 37.9 87 22 97/52 97 Nasal Cannula 3.0 Physical Exam General Appearance: + moderate distress, + obese Eyes: PERRL, EOMI Neck: supple, no JVD Respiratory/Chest: + decreased breath sounds, + accessory muscle use Cardiovascular: + systolic murmur, + irregularly irregular Abdomen: normal bowel sounds, non tender, soft Extremities: + pedal edema, + slow capillary refill, + swelling, + pertinent finding (changes of chronic venous stasis) Neurologic/Psychiatric: alert, oriented x 3 Laboratory Results Last 24 Hours Test 05/28/17 16:44 05/28/17 16:56 05/28/17 21:26 05/29/17 06:37 White Blood Count 8.81 K/uL Red Blood Count 3.88 M/uL Hemoglobin 10.8 g/dL Hematocrit 36.2 % Mean Corpuscular Volume 93.3 fL Mean Corpuscular Hemoglobin 27.8 pg Mean Corpuscular Hemoglobin Concent 29.8 g/dl Platelet Count 204 K/uL Mean Platelet Volume 10.3 fL Neutrophils (%) (Auto) 85.3 % Lymphocytes (%) (Auto) 6.5 % Monocytes (%) (Auto) 5.2 % Eosinophils (%) (Auto) 2.7 % Basophils (%) (Auto) 0.1 % Neutrophils # (Auto) 7.51 K/uL Lymphocytes # (Auto) 0.57 K/uL Monocytes # (Auto) 0.46 K/uL Eosinophils # (Auto) 0.24 K/uL Basophils # (Auto) 0.01 K/uL RDW Standard Deviation 64.4 fL RDW Coefficient of Variation 18.8 % Immature Granulocyte % (Auto) 0.2 % Immature Granulocyte # (Auto) 0.02 K/uL Prothrombin Time 29.7 SECONDS Prothromb Time International Ratio 2.7 Activated Partial Thromboplast Time 58.0 SECONDS Partial Thromboplastin Ratio 2.2 Sodium Level 131 mmol/L Potassium Level 6.5 mmol/L Chloride Level 92 mmol/L Carbon Dioxide Level 34 mmol/L Anion Gap 5.0 mmol/L Blood Urea Nitrogen 63 mg/dl Creatinine 8.20 mg/dl Est Creatinine Clear Calc Drug Dose 11.8 ml/min Estimated GFR () 6.8 Estimated GFR (Non- 5.9 BUN/Creatinine Ratio 7.6 Random Glucose 108 mg/dl Calcium Level 8.7 mg/dl Total Bilirubin 0.5 mg/dl Aspartate Amino Transf (AST/SGOT) 51 U/L Alanine Aminotransferase (ALT/SGPT) 82 U/L Alkaline Phosphatase 74 U/L Total Protein 7.3 gm/dl Albumin 3.3 gm/dl Globulin 4.0 gm/dl Albumin/Globulin Ratio 0.8 Bedside Lactic Acid Venous 1.59 mmol/L Bedside Glucose 126 mg/dl 120 mg/dl Test 05/29/17 07:06 White Blood Count 8.35 K/uL Red Blood Count 3.39 M/uL Hemoglobin 9.9 g/dL Hematocrit 31.3 % Mean Corpuscular Volume 92.3 fL Mean Corpuscular Hemoglobin 29.2 pg Mean Corpuscular Hemoglobin Concent 31.6 g/dl RDW Standard Deviation 63.2 fL RDW Coefficient of Variation 18.7 % Platelet Count 178 K/uL Mean Platelet Volume 10.5 fL Assessment and Plan 72-year-old male end-stage renal disease diabetic who presents with a diabetic foot infection For the diabetic foot infection vancomycin and Zosyn pending, wound cultures blood cultures are obtained, wound nurse recommends wound care physician to see , infectious disease will help direct antibiotics, negative plain film of his foot for osteo changes diabetes the patient's intake has been variable we'll employ the pharmacy glycemic management team to adjust his long-acting insulin and insulin sliding scale obesity hypoventilation syndrome/sleep apnea CPAP and the hospital supplied unit until his family can supply his own end-stage renal disease and hyperkalemia will continue hemodialysis treatments atrial fibrillation is rate controlled at this time he's anticoagulated with Coumadin and his INR is therapeutic Patient is a full code
--- NOTE | 2017-05-29 16:06 | Pharmacy Progress Note ---
Pharmacy Antibiotic Consult Date of Service: May 29, 2017. Pharmacy Dosing Scope Pharmacy is consulted to initiate vancomycin and Zosyn IV dosing therapy, order appropriate labs and adjust drug dose/frequency. Subjective The patient is a 72 year old male admitted on May 28, 2017 at 19:53 with foot and finger infections. History of diabetes and ESRD on dialysis. Objective Height (Feet): 5 Height (Inches): 10.00 Weight (Kilograms): 145.600 Lab Results (24hrs): Test 05/28/17 16:44 05/28/17 16:56 05/29/17 07:06 05/29/17 08:51 White Blood Count 8.81 K/uL (4.8-10.8) 8.35 K/uL (4.8-10.8) Red Blood Count 3.88 M/uL (4.7-6.1) 3.39 M/uL (4.7-6.1) Hemoglobin 10.8 g/dL (14.0-18.0) 9.9 g/dL (14.0-18.0) Hematocrit 36.2 % (42-52) 31.3 % (42-52) Mean Corpuscular Volume 93.3 fL (80-100) 92.3 fL (80-100) Mean Corpuscular Hemoglobin 27.8 pg (25-34) 29.2 pg (25-34) Mean Corpuscular Hemoglobin Concent 29.8 g/dl (32-36) 31.6 g/dl (32-36) Platelet Count 204 K/uL (130-400) 178 K/uL (130-400) Mean Platelet Volume 10.3 fL (7.4-10.4) 10.5 fL (7.4-10.4) Neutrophils (%) (Auto) 85.3 % Lymphocytes (%) (Auto) 6.5 % Monocytes (%) (Auto) 5.2 % Eosinophils (%) (Auto) 2.7 % Basophils (%) (Auto) 0.1 % Neutrophils # (Auto) 7.51 K/uL (1.4-6.5) Lymphocytes # (Auto) 0.57 K/uL (1.2-3.4) Monocytes # (Auto) 0.46 K/uL (0.11-0.59) Eosinophils # (Auto) 0.24 K/uL (0-0.5) Basophils # (Auto) 0.01 K/uL (0-0.2) RDW Standard Deviation 64.4 fL (36.4-46.3) 63.2 fL (36.4-46.3) RDW Coefficient of Variation 18.8 % (11.5-14.5) 18.7 % (11.5-14.5) Immature Granulocyte % (Auto) 0.2 % Immature Granulocyte # (Auto) 0.02 K/uL (0.00-0.02) Prothrombin Time 29.7 SECONDS (9.0-12.0) 32.6 SECONDS (9.0-12.0) Prothromb Time International Ratio 2.7 (0.9-1.1) 2.9 (0.9-1.1) Activated Partial Thromboplast Time 58.0 SECONDS (21.0-31.0) Partial Thromboplastin Ratio 2.2 Sodium Level 131 mmol/L (136-145) 131 mmol/L (136-145) Potassium Level 6.5 mmol/L (3.5-5.1) 6.4 mmol/L (3.5-5.1) Chloride Level 92 mmol/L (98-107) 93 mmol/L (98-107) Carbon Dioxide Level 34 mmol/L (21-32) 29 mmol/L (21-32) Anion Gap 5.0 mmol/L (3-11) 11.0 mmol/L (3-11) Blood Urea Nitrogen 63 mg/dl (7-18) 77 mg/dl (7-18) Creatinine 8.20 mg/dl (0.60-1.40) 9.30 mg/dl (0.60-1.40) Est Creatinine Clear Calc Drug Dose 11.8 ml/min 10.4 ml/min Estimated GFR () 6.8 5.9 Estimated GFR (Non- 5.9 5.1 BUN/Creatinine Ratio 7.6 (10-20) 8.2 (10-20) Random Glucose 108 mg/dl (70-99) 122 mg/dl (70-99) Calcium Level 8.7 mg/dl (8.5-10.1) 8.2 mg/dl (8.5-10.1) Total Bilirubin 0.5 mg/dl (0.2-1) Aspartate Amino Transf (AST/SGOT) 51 U/L (15-37) Alanine Aminotransferase (ALT/SGPT) 82 U/L (12-78) Alkaline Phosphatase 74 U/L (45-117) Total Protein 7.3 gm/dl (6.4-8.2) Albumin 3.3 gm/dl (3.4-5.0) Globulin 4.0 gm/dl (2.5-4.0) Albumin/Globulin Ratio 0.8 (0.9-2) Bedside Lactic Acid Venous 1.59 mmol/L (0.90-1.70) Random Vancomycin Level 26.5 mcg/ml Test 05/29/17 12:51 05/29/17 14:30 Bedside Glucose 105 mg/dl (70-99) 100 mg/dl (70-99) Micro Results: 05/23 ulcer of finger- MSSA sens dapto, oxa, Bactrim, and vanco (ARTEMIO =2) 05/28 blood x2 pending Recent Pertinent Medications Item Value Date Time Piperacillin Sod/ 120 ml @ 200 mls/hr 05/28/17 2200 Tazobactam Sod 2200/IV 05/28/17 2246 4.5 gm/Dextrose Vancomycin HCl 540 ml @ 200 mls/hr 05/28/17 2145 2000 mg/Sodium 2145/IV 05/28/17 2246 Chloride Vancomycin HCl 1 gm 05/28/17 1626 (Vancomycin 1gm/ NOW STAT/IV 05/28/17 1717 270ml Nss) Assessment & Plan Loading dose: vancomycin 1000 mg X1 in ED and 2000 mg x1 on admission for 20 mg/kg dose, then will redose empirically based on vancomycin levels. Goal trough level estimate: between 15-20 mcg/mL. Random level has been ordered for: 05/31/17 with am labs (before next hemodialysis) Zosyn 4.5 Gm IV over 30 minutes loading dose, then 4.5 Gm (infused over 4 hr) every 8 hr for hemodialysis patient (CrCl less than 20 ml/min) Pharmacy will continue to follow and will adjust dose/frequency as necessary. Thank you
[2017-05-29] MEDS ORDERED: NURSING DECISION MEDICATION ORDER SCH (20:15)
[2017-05-29] MEDS ORDERED: MICONAZOLE NITRATE POWDER 43 GM EXT PRN (20:15)
[2017-05-29] MEDS: SIMVASTATIN 40 MG TAB PO SCH (21:29)
[2017-05-29] MEDS: WARFARIN SOD 5 MG TAB PO SCH (21:29)
[2017-05-29] MEDS: GABAPENTIN 100 MG CAP PO SCH (21:30)
[2017-05-29] MEDS: CALCIUM ACETATE 667MG GELCAP PO PRN (22:40)
[2017-05-30 00:33] VITALS: BP 84/51; PULSE 89; TEMP 37; O2SAT 95
[2017-05-30] MEDS: LEVOTHYROXINE 50 MCG TAB PO SCH (05:50)
[2017-05-30 06:39] LABS: HEMATOCRIT 31.1 % (42-52); MEAN CELL VOLUME 92.6 fL (80-100); MEAN CORPUSCULAR HEMOGLOBIN 28.9 pg (25-34); MEAN CORPUSCULAR HGB CONC 31.2 g/dl (32-36); MEAN PLATELET VOLUME 10.6 fL (7.4-10.4); PLATELET COUNT 175 K/uL (130-400); RED BLOOD COUNT 3.36 M/uL (4.7-6.1); WHITE BLOOD COUNT 6.78 K/uL (4.8-10.8)
[2017-05-30 06:50] LABS: INR 2.5 (0.9-1.1); PROTHROMBIN TIME (PATIENT) 27.6 SECONDS (9.0-12.0)
[2017-05-30 07:19] VITALS: BP 86/55; PULSE 88; TEMP 36.4; O2SAT 98
[2017-05-30 07:34] LABS: BUN/CREATININE RATIO 7.8 (10-20); CALCIUM 8.1 mg/dl (8.5-10.1); CREATININE 6.7 mg/dl (0.60-1.40); POTASSIUM 4.9 mmol/L (3.5-5.1)
[2017-05-30] MEDS: CALCIUM ACETATE 667MG GELCAP PO SCH ×3 (07:45→17:07)
--- NOTE | 2017-05-30 07:45 | Clinical Documentation Query ---
CONI Arzate : CLINICAL DOCUMENTATION QUERIES QUERY 1 OF 2 Patient is a 72 year old male admitted for evaluation and treatment of weakness, dry heaves, and draining right calcaneal/Achilles tendon area diabetes associated ulceration. Foot radiograph demonstrated osteopenia, no acute osteomyelitis. However, "was suggestive of diffuse soft tissue edema suggestive of cellulitis". Wound and blood cultures have been obtained. He is being treated with Vancomycin and Zosyn. In your clinical opinion is this patient being managed for: (x ) Cellulitis associated with right diabetic foot ulcer infection ( ) Other explanation of clinical findings (Please Explain) ( ) Unable to determine (Please Define) ( ) Need to Discuss ( ) Not Agree The medical record reflects the following clinical findings, treatment, and risk factors. Clinical Indicators: As above Treatment:Wound and blood cultures have been obtained. He is being treated with Vancomycin and Zosyn Risk Factors: Diabetic ulceration, PVD, obesity, sedentary lifestyle QUERY 2 OF 2 Documentation in H&P included note of 4L of continuous supplemental oxygen therapy. Additionally, physical exam noted "moderate distress" and "accessory muscle use" and respirations to 31 breaths/min. As appropriate, consider documentation as suggested below in order to capture the correct severity of illness and associated risk of mortality in your patient. In your clinical opinion is this patient being managed for: ( x ) Acute and chronic respiratory failure with hypoxia ( ) Chronic respiratory failure with hypoxia ( ) Other explanation of clinical findings (Please Explain) ( ) Unable to determine (Please Define) ( ) Need to Discuss ( ) Not Agree The medical record reflects the following clinical findings, treatment, and risk factors. Clinical Indicators: As above Treatment: Supplemental oxygen, CPAP Risk Factors: Obesity hypoventilation syndrome, ESRD, CHF Please clarify and document your clinical opinion in the progress notes and discharge summary. Terms such as "probable", "suspected", "likely", "questionable", "possible", or "still to be ruled out" are acceptable. IF IN AGREEMENT, YOU MUST DOCUMENT ABOVE DIAGNOSTIC STATEMENT IN DAILY PROGRESS NOTES AND DISCHARGE SUMMARY. This document is not part of the patient's record. Thank You, Vicente Andres, KELLEY [phone]
[2017-05-30 08:00] VITALS: O2SAT 98
[2017-05-30] MEDS: ASPIRIN 81 MG ECTAB PO SCH (08:16)
[2017-05-30] MEDS: ALLOPURINOL 100 MG TAB PO SCH (08:16)
[2017-05-30] MEDS: SENSIPAR~ORDER AWAITING ACTION SCH (08:17)
[2017-05-30] MEDS: POLYETHYLENE (MIRALAX) 17 GM PACK PO SCH (08:17)
[2017-05-30] MEDS: INSULIN ASPART 100 UNITS/ML 3 ML PEN SC SCH ×4 (08:21→20:45)
[2017-05-30] MEDS: INSULIN GLARGINE 300 UNIT/ML SC SCH (08:22)
[2017-05-30] MEDS: PIPERACILL/TAZOBAC IV 4.5 GM in DEXTROSE 5% 100ML 100 ML IV SCH ×2 (08:22→20:48)
[2017-05-30] MEDS ORDERED: INSULIN GLARGINE SOLOSTAR 100 UNITS/ML 3 ML PEN SC SCH ×2 (09:00)
--- NOTE | 2017-05-30 09:36 | Surgery Consultation ---
Consultation Date of Service May 30, 2017. (Italia Garcia, MACK) Chief Complaint R heel wound, PAD (Italia Garcia, MACK) History of Present Illness The patient is a 72 year old male with multiple medical problems, known to Dr Aguirre for HD access, seen in consultation today for possible PAD and RLE heel ulceration. Pt does not ambulate d/t instability and chronic generalized weakness. Has R heel ulceration for past few months which has been nonhealing. Admitted currently d/t worsening infection, N/V, weakness. Pt states he feels much improved since admission. Denies GARY, fever, chills, chest pain, SOB presently, abd pain, N/V now, rest pain, claudication, other complaints. States previous wounds to R fingers are healing. RLE Arterial US demonstrates mild diffuse arterial disease without stenotic lesions. (Italia Garcia, MACK) Vitals Vital Signs Past 12 Hours Date Time Temp Pulse Resp B/P (MAP) Pulse Ox O2 Delivery O2 Flow Rate FiO2 05/30/17 08:00 98 Nasal Cannula 4.0 05/30/17 07:19 36.4 88 20 86/55 (65) 98 Nasal Cannula 4.0 05/30/17 00:33 37.0 89 20 84/51 (62) 95 4.0 05/30/17 00:00 Nasal Cannula 4.0 (Italia Garcia, JADENC) Allergies Coded Allergies: No Known Allergies (Verified , 04/13/17) Home Medications Scheduled Allopurinol (Zyloprim), 100 MG PO QAM Aspirin (Aspirin Ec), 81 MG PO QAM Bisacodyl (Dulcolax), 1 TAB PO UD Calcium Acetate (Phoslo 667 Mg), 4 TABS PO TIDM Calcium Acetate (Phoslo 667 Mg), 3 CAP PO UD Cephalexin Monohydrate (Cephalexin), 1 TAB PO TID Cinacalcet (Sensipar), 60 MG PO DAILY Doxycycline Hyclate (Doxycycline Hyclate), 1 TAB PO BID Gabapentin (Neurontin), 1 CAP PO QPM Home O2 Therapy (Oxygen), 4 LITERS NA CONTINOUS Insulin Aspart (Novolog Flexpen), 0 UNITS SC AC Insulin Glargine (Toujeo Solostar), 50 UNITS SC QAM Levothyroxine Sodium (Levothyroxine Sodium), 1 TAB PO DAILYBB Multiple Vitamins W/ Minerals (Therems M), 1 TAB PO QAM Polyethylene Glycol 3350 (Miralax), 17 GM PO QAM Povidone-Iodine (Betadine), 1 DOSE TOP QAM Simvastatin (Zocor), 40 MG PO QPM Warfarin Sodium (Coumadin), 5 MG PO HS Scheduled PRN Acetaminophen (Tylenol), 650 MG PO Q6 PRN for Pain or Fever Problem List Medical Problems: (1) Acute exacerbation of CHF (congestive heart failure) (2) Atrial fibrillation with slow ventricular response (3) CONGESTIVE HEART FAILURE NOS (4) DIAB W OTH SPEC MANIFEST, TYPE II OR UNSPEC TYPE, NOT UNCNTR (5) Diabetes (6) diabetic foot infectoin (7) Diabetic foot ulcer (8) Diabetic peripheral neuropathy associated with type 2 diabetes mellitus (9) Edema (10) Loss of sensation (11) MAL [place] BLADDER-TRIGONE (12) MORBID OBESITY (13) Obstructive sleep apnea (14) Peripheral vascular disease (15) RENAL FAILURE NOS (16) SIRS (systemic inflammatory response syndrome) (Italia Garcia, PA-C) Surgical / Medical History Hx Cardiac Surgery: No (BIOPSY OF B/L TEMPORAL ARTERIES) Hx Abdominal Surgery: No Hx Cancer Surgery: Yes (BLADDER) Hx Thoracic Surgery: No Hx Orthopedic: Yes (LT LEG DUE TO POLIO) Hx Urinary Tract Surgery: Yes (BLADDER/CYSTOSCOPY) HX Other Surgery: Yes Past Medical/Surgical History: Diabetes, Heart Disease, High Cholesterol, Hypertension, Kidney Disease (Italia Garcia, JADENC) Family History Patient reports no known family medical history. (Italia Garcia, JADENC) Patient reports no known family medical history. (Jonathon Aguirre M.D.) Social History Smoking Status: Former Smoker Hx Tobacco Use In Past Year?: No Hx Alcohol Use - Type & Amnt: Yes (QUIT AT AGE 45) Hx Substance Use -Type & Amnt: No (Italia Garcia, PA-C) Review of Systems Constitutional: + malaise, No chills, No fever Skin: No change in color Eyes: No visual changes ENMT: No sore throat Respiratory: + orthopnea, No cough, No hemoptysis, No short of breath Cardiovascular: + edema, No chest pain, No palpitations, No syncope, No intermittent claudication Gastrointestinal: No abdominal pain, No nausea, No vomiting Neurologic: No dizziness, No headache, No numbness, No tingling (Italia Garcia, PAMickC) Physical Exam Constitutional: General Apperance: well-nourished, well-developed, obese Level of Distress: NAD, chronically ill Psychiatric: Mental Status: active & alert, normal mood, normal affect Orientation: oriented except where noted, to time, to place, to person Memory: recent memory normal, remote memory normal Head: normocephalic, atraumatic Eyes: EOM: EOMI ENMT: normal ENT inspection, hearing grossly normal Neck: supple, trachea midline Lungs: Respiratory effort: no dyspnea Auscultation: no rales/crackles, no rhonchi, decreased breath sounds Cardiovascular: Apical Impulse: not displaced Heart Auscultation: no rubs, no gallops, pertinent finding (irregular) Peripheral Pulses: Pulses: full and equal, in all extremities except if noted Bruits: none appreciated Carotid Pulse: normal on the left, normal on the right Brachial Pulses: normal on the left, normal on the right Radial Pulse: normal on the left, decreased on the right Femoral Pulse: normal on the left, normal on the right Posterior Tibialis Pulse: pertinent finding (Nonpalpable BLE) Dorsalis Pedis Pulse: pertinent finding (nonpalpable) Abdomen: Bowel Sounds: normal Inspection & Palpation: soft, non-distended, no tenderness, guarding & rebound Musculoskeletal: normal tone Extremities: Upper Right: no cyanosis, no edema, pertinent finding (+ thrill/bruit over AVF. Finger wounds healing.) Upper Left: no cyanosis, no edema, no varicosities Lower Right: no cyanosis, no varicosities, no palpable cord, edema, pertinent finding (venous stasis changes. Heel wound dressed. ) Lower Left: no cyanosis, no varicosities, no palpable cord, edema, pertinent finding (venous stasis changes) Neurologic: Cranial Nerves: grossly intact Sensation: grossly intact (Italia Garcia, PAMickC) Assessment and Plan ASSESSMENT and PLAN: R heel wound ESRD on HD Pt's arterial US indicates adequate flow to RLE. No indications for vascular surgical intervention at this time. Please call if needed. (Italia Garcia, PA-C) Patient was seen, examined, and chart reviewed. Agree with exam and treatment plan of the Vascular PA. Thank you very much for letting me participate in the care of this patient. (Jonathon Aguirre M.D.)
[2017-05-30] MEDS ORDERED: SODIUM CHLORIDE 0.9% 1000ML 1,000 ML IV PRN (10:29)
--- NOTE | 2017-05-30 10:51 | NEPHROLOGY PROGRESS NOTE ---
DATE: 05/30/2017 SUBJECTIVE: Mr. Cabrera says that he is feeling significantly better. He was admitted over the past week and complaining of generalized weakness, fatigue, nausea and worsening shortness of breath with exertion. It was felt at the time of his admission that he probably had soft tissue infections involving both his right hand and his right leg. He has been placed on Zosyn. Cultures so far are negative. Nonetheless, on antibiotics, he is feeling better. In addition to his Zosyn, he did receive a loading dose of vancomycin. He underwent an uneventful hemodialysis yesterday. He denies having any significant shaking chills. His appetite is somewhat improved and his nausea resolved. He is chronically short of breath. He has not been active at all during his hospitalization. He is not particularly active at home. He has been recently seen at the wound clinic because of ulcerations on the 2nd, 3rd and 4th digits of the right hand as well as a superficial ulceration involving his right heel. He has other chronic superficial ulcerations related to venous stasis disease in both legs. He has been treated in the past at wound clinic for a variety of soft tissue ulcerations and infections. He has no current symptoms of uremia or volume overload. OBJECTIVE: GENERAL: On physical exam, at the current time, Mr. Cabrera appears as a morbidly obese, late middle-aged gentleman, who was in no distress when seen. He was using oxygen via nasal cannula at 4 liters per minute. VITAL SIGNS: He is afebrile (36.4), his blood pressure 86/55, his pulse 92 and irregular at the time seen by me, respiratory rate is 20, and his pulse ox is 98% on 4 liters of oxygen by nasal cannula. SKIN: Shows normal skin turgor. He has very obvious changes of chronic venous stasis dermatitis involving both lower extremities. He has a shallow ulceration involving his right heel. That was dressed with gauze dressing. There is no evidence of additional cellulitis, but he does have significant venous stasis changes on his lower extremities. He has a right upper arm AV fistula. He has a palpable pacemaker beneath the distal left clavicle. LYMPHATICS: Show no palpable adenopathy. HEAD: Grossly normal. EYES: Grossly normal. The ocular fundi were not examined. EARS, NOSE, MOUTH AND THROAT: All unremarkable. NECK: Supple. He has no jugular venous distension visible, although the exam is limited by his body habitus. I hear no carotid bruits. There is no thyromegaly. CHEST: Shows diminished breath sounds at the bases. Breath sounds are also diminished throughout his lung hernandez. The bases are more prominently diminished because of his body habitus. CARDIAC: Shows an irregular rhythm. He has a systolic ejection murmur at the upper left sternal border and base. ABDOMEN: Grossly obese. It is nontender. EXTREMITIES: Show 2+ firm lower extremity edema and the changes of venous stasis dermatitis. He has the skin changes noted above. I cannot feel pedal pulses. Femoral pulses are barely palpable. His right upper arm AV fistula is functional. NEUROLOGIC: Shows diminished protective sensation in his feet, but otherwise shows no lateralizing changes. PERTINENT LABORATORY WORK: From today shows a white count of 6780, his hemoglobin is 9.7, his hematocrit 31.1, and his platelet count 175,000. His sodium is 135 mmol/L, potassium 4.9 mmol/L, chloride is 98 mmol/L, and CO2 content 28 mmol/L. His BUN is 52, his creatinine 6.7, and his serum calcium is 8.1. Blood sugars have varied during the hospitalization from 100 to 151 on his current regimen. ASSESSMENT: Mr. Cabrera is symptomatically improved. Blood cultures thus far are negative. His white blood cell count is not significantly elevated at this time. However, at the time of his admission on May 28, even though his white count was within the normal range, it was somewhat shifted to the left. X-rays of his foot failed to show any evidence of osteomyelitis. He has soft tissue swelling consistent with his venous stasis dermatitis and possible cellulitis. An ultrasound of his lower extremities showed no significant stenosis, but he does have some evidence of atherosclerotic plaque on the right lower extremity. ASSESSMENT: Mr. Cabrera seems to be improving from a presumed soft tissue infection. Multiple sites are perhaps the source including ulceration on his right heel, his chronic venous stasis dermatitis in the superficial ulcerations involving the digits of his right hand. PLAN: Continue with his current antibiotics. Would not readminister vancomycin without having a documented normal trough level. We will plan on his scheduled hemodialysis for tomorrow.
[2017-05-30] MEDS ORDERED: EPOETIN ALFA 20,000 UNITS/ML VIAL IV. SCH (11:15)
[2017-05-30] MEDS ORDERED: HEPARIN SOD (PORCINE) 1000 UNIT/ML 10 ML VIAL IV SCH ×2 (11:15)
--- NOTE | 2017-05-30 15:07 | Progress Note ---
Subjective Date of Service: May 30, 2017. Subjective s/p hd, electrolytes improved. remains on IV abx, blood culture negative to date. afebrile. tolerating abx. no overnight events. Problem List Medical Problems: (1) Ambulatory dysfunction Status: Acute (2) End stage renal disease Status: Acute (3) Failure of outpatient treatment Status: Acute (4) Febrile illness Status: Acute (5) Hyperkalemia Status: Acute (6) Infection of right foot Status: Acute (7) Infection of right hand Status: Acute (8) Leukocytosis Status: Acute (9) Superficial injury of right index finger with infection Status: Acute (10) Ulcers of both lower extremities Status: Acute Objective Vital Signs Date Time Temp Pulse Resp B/P (MAP) Pulse Ox O2 Delivery O2 Flow Rate FiO2 05/30/17 08:00 98 Nasal Cannula 4.0 05/30/17 07:19 36.4 88 20 86/55 (65) 98 Nasal Cannula 4.0 05/30/17 00:33 37.0 89 20 84/51 (62) 95 4.0 05/30/17 00:00 Nasal Cannula 4.0 05/29/17 20:00 Nasal Cannula 4.0 05/29/17 17:36 37.1 113 20 87/53 (64) 92 Nasal Cannula 4.0 05/29/17 17:25 Nasal Cannula 4.0 05/29/17 17:22 37.4 83 73/37 (49) 05/29/17 16:30 74 65/39 05/29/17 16:15 88 61/35 05/29/17 16:00 90 72/39 05/29/17 15:45 84 67/43 05/29/17 15:30 83 72/42 05/29/17 15:15 80 64/43 Laboratory Results Item Value Date Time Blood Culture - Preliminary Resulted 05/28/17 1644 Blood NO GROWTH TO DATE. Blood Culture - Preliminary Resulted 05/28/17 1651 Blood NO GROWTH TO DATE. Last 24 Hours Test 05/29/17 17:26 05/29/17 20:21 05/30/17 06:00 05/30/17 07:50 Bedside Glucose 105 mg/dl 151 mg/dl 138 mg/dl White Blood Count 6.78 K/uL Red Blood Count 3.36 M/uL Hemoglobin 9.7 g/dL Hematocrit 31.1 % Mean Corpuscular Volume 92.6 fL Mean Corpuscular Hemoglobin 28.9 pg Mean Corpuscular Hemoglobin Concent 31.2 g/dl RDW Standard Deviation 63.3 fL RDW Coefficient of Variation 18.6 % Platelet Count 175 K/uL Mean Platelet Volume 10.6 fL Prothrombin Time 27.6 SECONDS Prothromb Time International Ratio 2.5 Sodium Level 135 mmol/L Potassium Level 4.9 mmol/L Chloride Level 98 mmol/L Carbon Dioxide Level 28 mmol/L Anion Gap 9.0 mmol/L Blood Urea Nitrogen 52 mg/dl Creatinine 6.70 mg/dl Est Creatinine Clear Calc Drug Dose 14.6 ml/min Estimated GFR () 8.7 Estimated GFR (Non- 7.5 BUN/Creatinine Ratio 7.8 Random Glucose 110 mg/dl Calcium Level 8.1 mg/dl Test 05/30/17 11:38 Bedside Glucose 125 mg/dl Assessment and Plan (1) Cellulitis Assessment & Plan: can continue IV abx for now, if culture negative in am, will likely transition to po doxy to treat for finger wound/cellulitis. will need continue wound care follow up post d/c.
[2017-05-30 15:37] VITALS: BP 96/56; PULSE 88; TEMP 37.1; O2SAT 99
--- NOTE | 2017-05-30 20:24 | Progress Note ---
Subjective Date of Service: May 30, 2017. Subjective Pt evaluation today including: conversation w/ patient, physical exam, chart review, lab review, review of studies (arterial doppler), review of inpatient medication list Pain: denies PO Intake: normal no issues overnight reports orthopnea is improved but he chronically sleeps in recliner at home he overall feels better with no further nausea eating fine reports ulcers on hand have been present for about 2 months he states he had a fistula study in March and "it was ok" Problem List Medical Problems: (1) Ambulatory dysfunction Status: Acute (2) End stage renal disease Status: Acute (3) Failure of outpatient treatment Status: Acute (4) Febrile illness Status: Acute (5) Hyperkalemia Status: Acute (6) Infection of right foot Status: Acute (7) Infection of right hand Status: Acute (8) Leukocytosis Status: Acute (9) Superficial injury of right index finger with infection Status: Acute (10) Ulcers of both lower extremities Status: Acute Review of Systems Constitutional: No fever, No chills Respiratory: No dyspnea at rest Cardiac: + orthopnea, No chest pain Abdomen: No pain Objective Vital Signs Date Time Temp Pulse Resp B/P (MAP) Pulse Ox O2 Delivery O2 Flow Rate FiO2 05/30/17 16:10 Nasal Cannula 4.0 05/30/17 15:37 37.1 88 20 96/56 (69) 99 Nasal Cannula 4.0 05/30/17 08:00 98 Nasal Cannula 4.0 05/30/17 07:19 36.4 88 20 86/55 (65) 98 Nasal Cannula 4.0 05/30/17 00:33 37.0 89 20 84/51 (62) 95 4.0 05/30/17 00:00 Nasal Cannula 4.0 Physical Exam General Appearance: no apparent distress, + obese ENT: pharynx normal Neck: no JVD (cannot assess due to body habitus) Respiratory/Chest: no respiratory distress, no accessory muscle use, + crackles (bibasilar) Cardiovascular: no gallop, no murmur, + irregularly irregular, + pertinent finding (right upper arm AV fistula with +bruit) Abdomen: normal bowel sounds, non tender, soft, no organomegaly Extremities: + pedal edema, + swelling (1+ b/l ) Neurologic/Psychiatric: alert, oriented x 3 Skin: + pertinent finding (multiple ulcers on ventral surface of fingers 1,2 and 3 on right hand; no superimposed cellulitis; right ankle wrapped in dressing ; severe stasis changes b/l shins) Laboratory Results Last 24 Hours Test 05/29/17 20:21 05/30/17 06:00 05/30/17 07:50 05/30/17 11:38 Bedside Glucose 151 mg/dl 138 mg/dl 125 mg/dl White Blood Count 6.78 K/uL Red Blood Count 3.36 M/uL Hemoglobin 9.7 g/dL Hematocrit 31.1 % Mean Corpuscular Volume 92.6 fL Mean Corpuscular Hemoglobin 28.9 pg Mean Corpuscular Hemoglobin Concent 31.2 g/dl RDW Standard Deviation 63.3 fL RDW Coefficient of Variation 18.6 % Platelet Count 175 K/uL Mean Platelet Volume 10.6 fL Prothrombin Time 27.6 SECONDS Prothromb Time International Ratio 2.5 Sodium Level 135 mmol/L Potassium Level 4.9 mmol/L Chloride Level 98 mmol/L Carbon Dioxide Level 28 mmol/L Anion Gap 9.0 mmol/L Blood Urea Nitrogen 52 mg/dl Creatinine 6.70 mg/dl Est Creatinine Clear Calc Drug Dose 14.6 ml/min Estimated GFR () 8.7 Estimated GFR (Non- 7.5 BUN/Creatinine Ratio 7.8 Random Glucose 110 mg/dl Calcium Level 8.1 mg/dl Test 05/30/17 16:16 Bedside Glucose 134 mg/dl Assessment and Plan 72yo male: 1. acute/chronic hypoxic resp failure - acute component 2nd to volume overload from ESRD/?diastolic CHF. improved scheduled for HD tomorrow I believe he is still volume overloaded based on his exam 2. cellulitis associated with right diabetic foot ulcer on achilles region - continue current abx; appreciate ID and wound care consultations. vascular surgery evaluated and patient has adequate blood flow at this time 3. ulcers, right hand - 03/2017 AV fistulogram with preserved blood flow throughout the arm and no evidence of steal syndrome. etiology of ulcers? embolic? will check echo, r/o source of embolus. 4. a. fib - rates acceptable, INR therapeutic, daily INR, cont coumadin as is. 5. T2DM - control acceptable with current insulin regimen 6. hypothyroidism - previous TSH in 01/2017 was high; recheck in am to ensure euthyroid state 7. DVT proph - coumadin 8. ESRD on HD - HD schedule M// - appreciate Dr. Flaherty's consult and management continue phosphate binders, etc 9. hyperkalemia - cause?? unclear since he did not miss any HD appointments resolved regardless 10. abnormal LFTs - cause? last 1.5 years his ast and alt have been normal repeat in am for stability PT, OT when able Continued [facility] stay due to: multiple IV medications needed Discharge planning: uncertain
[2017-05-30] MEDS: WARFARIN SOD 5 MG TAB PO SCH (20:44)
[2017-05-30] MEDS: SIMVASTATIN 40 MG TAB PO SCH (20:45)
[2017-05-30] MEDS: GABAPENTIN 100 MG CAP PO SCH (20:45)
[2017-05-30] MEDS: CALCIUM ACETATE 667MG GELCAP PO PRN (20:55)
[2017-05-30] MEDS ORDERED: HEPARIN SOD 5000 UNIT/0.5 ML CARP SQ SCH (21:00)
[2017-05-30] MEDS: CINACALCET HCL 90 MG PO SCH (21:16)
[2017-05-30 23:33] VITALS: BP 110/61; PULSE 85; TEMP 37.4; O2SAT 98
[2017-05-31] VITALS (14 sets, daily range): BP systolic 72–102; BP diastolic 35–50; PULSE 69–81; TEMP 36.6–37.3; O2SAT 94–99
[2017-05-31] MEDS: LEVOTHYROXINE 50 MCG TAB PO SCH (06:04)
[2017-05-31 06:33] LABS: INR 2.1 (0.9-1.1); PROTHROMBIN TIME (PATIENT) 23.5 SECONDS (9.0-12.0)
[2017-05-31 07:09] LABS: BUN/CREATININE RATIO 9.6 (10-20); CALCIUM 8.4 mg/dl (8.5-10.1); CREATININE 8.7 mg/dl (0.60-1.40); POTASSIUM 5.5 mmol/L (3.5-5.1)
[2017-05-31 07:14] LABS: THYROID STIMULATING HORMONE 2.94 uIu/ml (0.300-4.500)
[2017-05-31] MEDS: CALCIUM ACETATE 667MG GELCAP PO SCH ×2 (07:49→12:05)
[2017-05-31] MEDS: INSULIN ASPART 100 UNITS/ML 3 ML PEN SC SCH ×4 (08:42→20:12)
[2017-05-31] MEDS: INSULIN GLARGINE 300 UNIT/ML SC SCH (08:43)
[2017-05-31] MEDS: PIPERACILL/TAZOBAC IV 4.5 GM in DEXTROSE 5% 100ML 100 ML IV SCH ×2 (08:45→20:07)
[2017-05-31] MEDS: ASPIRIN 81 MG ECTAB PO SCH (09:00)
[2017-05-31] MEDS: ALLOPURINOL 100 MG TAB PO SCH (09:00)
[2017-05-31] MEDS: POLYETHYLENE (MIRALAX) 17 GM PACK PO SCH (09:00)
[2017-05-31] MEDS ORDERED: VANCOMYCIN INJ 1,000 MG in SODIUM CHLORIDE 0.9% 250ML 250 ML IV SCH (09:00)
[2017-05-31] MEDS ORDERED: CINACALCET HCL 90 MG PO SCH (09:00)
--- NOTE | 2017-05-31 10:19 | DIAGNOSTIC IMAGING REPORT ---
(LIVER) ABDOMEN LIMITED CLINICAL HISTORY: 72 years-old Male presenting with elevated transaminases. TECHNIQUE: Real-time grayscale and limited color Doppler ultrasound imaging of the abdomen limited to the right upper quadrant was performed. COMPARISON: 10/27/[address] from 10/21/2015. FINDINGS: Pancreas: Visualized portions of the pancreatic head and body normal. Liver: Suggestion of expansion of fat within the gallbladder fossa and a micronodular contour of the undersurface of the liver. A well-defined anechoic 1.7 cm lesion is noted within the liver, consistent with hepatic cyst or hamartoma. Biliary: No intrahepatic biliary ductal dilatation. Common bile duct measures up to 5 mm in diameter. Gallbladder: No evidence of gallstones, gallbladder wall thickening, gallbladder distention, or pericholecystic fluid or inflammatory change. Right kidney: Poorly visualized but suggestion of echogenic parenchyma. No hydronephrosis. Ascites: None. IMPRESSION: 1. Findings raise concern for a cirrhotic liver morphology. Further evaluation with contrast-enhanced MR or CT to be considered as clinically warranted. 2. No cholelithiasis or biliary duct dilatation. 3. Echogenic renal parenchyma could suggest medical renal disease. Electronically signed by: Sarthak Elizabeth M.D. 05/31/2017 10:18 AM Dictated Date/Time: 05/31/2017 10:13 AM
--- NOTE | 2017-05-31 10:28 | Pharmacy Progress Note ---
Pharmacy Glycemic Sign Off Nt Date of Service May 31, 2017. Assessment & Plan ASSESSMENT: * Pharmacy was consulted by Dr Louis on 05/28/17 for glycemic control and to write orders per [facility] inpatient glycemic control protocol. * Patient has been receiving/requiring 55-70 units of insulin per day for adequate glycemic control * BSGs ranging 114 - 138 mg/dl * Regimen has required no adjustments over the past 48hrs to achieve this level of control * Do not anticipate further changes in patient status that would quickly deteriorate glycemic control (i.e. patient to be NPO for upcoming procedure, steroids tapering, starting tube feedings, etc). * Please see recommendations for outpatient antidiabetic regimen below. PLAN FOR INPATIENT GLYCEMIC CONTROL: No changes needed to current regimen. * Continue basal insulin with TOUJEO 50 units daily (patient does not like to deviate from home insulin/dosing) * Continue NovoLog per scale ACHS/Q6hrs while NPO * Goal range = 110 - 150 mg/dl * CF = 25 mg/dl/unit * CR = 1 unit for ever 10 g CHO consumed * Pharmacy is signing off of glycemic consult and will no longer be making adjustments to inpatient regimen. Please feel free to re-consult if needed. Thank you.
--- NOTE | 2017-05-31 10:36 | Wound Progress Note: Inpatient ---
Wound Progress Note Date of Service May 30, 2017. Subjective Pt evaluation today including: conversation w/ patient, physical exam, chart review Patient seen today in consultation for ongoing management of a pressure ulceration to the right heel. Patient was recently admitted to [facility] for evaluation of weakness and shortness of breath. Patient states he is feeling better today. Patient denies any fever chills or night sweats. Patient denies any other systemic complaints at this time. Objective Vital Signs Date Time Temp Pulse Resp B/P (MAP) Pulse Ox O2 Delivery O2 Flow Rate FiO2 05/31/17 08:00 98 Nasal Cannula 4.0 05/31/17 07:37 36.6 78 18 72/40 (51) 94 Room Air 80/50 (60) 05/31/17 07:13 37.3 76 18 76/48 (57) 99 Nasal Cannula 4.0 05/31/17 00:00 Nasal Cannula 4.0 05/30/17 23:33 37.4 85 18 110/61 (77) 98 4.0 05/30/17 16:10 Nasal Cannula 4.0 05/30/17 15:37 37.1 88 20 96/56 (69) 99 Nasal Cannula 4.0 Physical Exam Notes: Patient seen today in no acute distress. Patient is sitting in a hospital chair. Patients vital signs were reviewed and found to be unremarkable patient is afebrile. Ulceration of the right heel today measures 1.6 x 1.7 x 0.1 cm. There is improved epithelialization the margins. No significant central slough or periwound eschar formation noted. No tenderness to palpation present. Laboratory Results Last 24 Hours Test 05/30/17 11:38 05/30/17 16:16 05/30/17 20:11 05/31/17 05:54 Bedside Glucose 125 mg/dl 134 mg/dl 114 mg/dl Prothrombin Time 23.5 SECONDS Prothromb Time International Ratio 2.1 Test 05/31/17 05:58 05/31/17 07:21 Sodium Level 134 mmol/L Potassium Level 5.5 mmol/L Chloride Level 97 mmol/L Carbon Dioxide Level 27 mmol/L Anion Gap 10.0 mmol/L Blood Urea Nitrogen 84 mg/dl Creatinine 8.70 mg/dl Est Creatinine Clear Calc Drug Dose 11.3 ml/min Estimated GFR () 6.3 Estimated GFR (Non- 5.5 BUN/Creatinine Ratio 9.6 Random Glucose 133 mg/dl Calcium Level 8.4 mg/dl Aspartate Amino Transf (AST/SGOT) 141 U/L Alanine Aminotransferase (ALT/SGPT) 254 U/L Thyroid Stimulating Hormone (TSH) 2.940 uIu/ml Random Vancomycin Level 15.1 mcg/ml Bedside Glucose 144 mg/dl Assessment and Plan Assessment: Stage II pressure ulcer right heel with improvement Plan: At this time no debridement is indicated. The site will be dressed with Aquacel Ag gauze and a co-bandlike compression wrap to the right lower extremity. He she will be reevaluated in 1 week in the outpatient clinic upon discharge.
--- NOTE | 2017-05-31 11:39 | Progress Note ---
Subjective Date of Service: May 31, 2017. Subjective Pt evaluation today including: conversation w/ patient, physical exam, chart review, lab review pt seen in follow up, continues to improve, appetite better. no f/c. tolerating abx. blood cultures negative. no complaints. feeling fatigued. all remaining ros reviewed and are negative. Problem List Medical Problems: (1) Ambulatory dysfunction Status: Acute (2) End stage renal disease Status: Acute (3) Failure of outpatient treatment Status: Acute (4) Febrile illness Status: Acute (5) Hyperkalemia Status: Acute (6) Infection of right foot Status: Acute (7) Infection of right hand Status: Acute (8) Leukocytosis Status: Acute (9) Superficial injury of right index finger with infection Status: Acute (10) Ulcers of both lower extremities Status: Acute Objective Vital Signs Date Time Temp Pulse Resp B/P (MAP) Pulse Ox O2 Delivery O2 Flow Rate FiO2 05/31/17 08:00 98 Nasal Cannula 4.0 05/31/17 07:37 36.6 78 18 72/40 (51) 94 Room Air 80/50 (60) 05/31/17 07:13 37.3 76 18 76/48 (57) 99 Nasal Cannula 4.0 05/31/17 00:00 Nasal Cannula 4.0 05/30/17 23:33 37.4 85 18 110/61 (77) 98 4.0 05/30/17 16:10 Nasal Cannula 4.0 05/30/17 15:37 37.1 88 20 96/56 (69) 99 Nasal Cannula 4.0 Physical Exam General Appearance: WD/WN, no apparent distress Eyes: normal inspection, EOMI Neck: supple Respiratory/Chest: lungs clear, normal breath sounds, no respiratory distress, + decreased breath sounds Cardiovascular: regular rate, rhythm, no edema Abdomen: soft Extremities: non-tender, no pedal edema Neurologic/Psychiatric: alert, oriented x 3 Skin: normal color Laboratory Results Item Value Date Time Blood Culture - Preliminary Resulted 05/28/17 1644 Blood NO GROWTH TO DATE. Blood Culture - Preliminary Resulted 05/28/17 1651 Blood NO GROWTH TO DATE. Last 24 Hours Test 05/30/17 16:16 05/30/17 20:11 05/31/17 05:54 05/31/17 05:58 Bedside Glucose 134 mg/dl 114 mg/dl Prothrombin Time 23.5 SECONDS Prothromb Time International Ratio 2.1 Sodium Level 134 mmol/L Potassium Level 5.5 mmol/L Chloride Level 97 mmol/L Carbon Dioxide Level 27 mmol/L Anion Gap 10.0 mmol/L Blood Urea Nitrogen 84 mg/dl Creatinine 8.70 mg/dl Est Creatinine Clear Calc Drug Dose 11.3 ml/min Estimated GFR () 6.3 Estimated GFR (Non- 5.5 BUN/Creatinine Ratio 9.6 Random Glucose 133 mg/dl Calcium Level 8.4 mg/dl Aspartate Amino Transf (AST/SGOT) 141 U/L Alanine Aminotransferase (ALT/SGPT) 254 U/L Thyroid Stimulating Hormone (TSH) 2.940 uIu/ml Random Vancomycin Level 15.1 mcg/ml Test 05/31/17 07:21 Bedside Glucose 144 mg/dl Assessment and Plan (1) Cellulitis Assessment & Plan: can continue IV abx for now, if culture negative in am, will likely transition to po doxy to treat for finger wound/cellulitis. will need continue wound care follow up post d/c. Continued [facility] stay due to: multiple IV medications needed Discharge planning: uncertain
--- NOTE | 2017-05-31 11:54 | NEPHROLOGY PROGRESS NOTE ---
DATE: 05/31/2017 DATE: 05/31/2017 SUBJECTIVE: Mr. Cabrera says that he is feeling even weaker than he had previously during his hospitalization. He says he feels as if he is getting an inadequate amount of oxygen but denies a sensation of shortness of breath! He denies having any chest pain. He denies having any cough or wheezing. He has no shaking chills. He has had no fevers. He has had no pain in his hands or legs. He has no specific symptoms of uremia or volume overload. He says that his appetite is somewhat better. His major complaint is generalized weakness. He said that he even had to be lifted with a Jerome lift to be able to get out of bed to the bathroom. OBJECTIVE: GENERAL: On physical examination, Mr. Cabrera appears relatively well. However, he is morbidly obese. He is certainly in no respiratory distress. VITAL SIGNS: He is afebrile, although his maximum temperature was 37.4 in the past 24 hours. His blood pressure is 80/50 in the left arm seated with a pulse of 78 and irregular. His respiratory rate is 18. His pulse ox is 94-99% on 4 liters of oxygen via nasal cannula. SKIN: Shows normal skin turgor. He has no obvious rash or infiltrative skin disease other than changes of chronic venous stasis dermatitis on his lower extremities. He has an ulceration on his right heel that appears to be healing in. There is no surrounding scab or cellulitis. He has a right upper arm AV fistula that is functioning well. He has a palpable pacemaker beneath the distal left clavicle. LYMPHATICS: Show no palpable lymphadenopathy or evidence of lymphangitis. HEAD: Normal. EYES: Grossly normal. The ocular fundi were not examined. EARS, NOSE, MOUTH AND THROAT: All unremarkable. NECK: Supple. There is no jugular venous distention, but the exam is limited by his body habitus. He has no carotid bruit or thyromegaly. CHEST: Shows diminished breath sounds throughout, particularly at the bases. The diaphragms are elevated related to his body habitus. CARDIAC EXAMINATION: Shows a irregular rhythm. He has a systolic ejection murmur at the upper left sternal border and base. ABDOMEN: Grossly obese, but nontender. No organomegaly or masses palpable. EXTREMITIES: Show 1-2+ firm lower extremity edema. His legs were wrapped. Previously they showed evidence of venous stasis dermatitis and he did have a shallow ulceration of his left heel which appeared to be clean. His right hand has some resolving skin changes from prior blisters, but no evidence of cellulitis. Femoral pulses are barely palpable. There is a right upper arm AV fistula. NEUROLOGIC EXAMINATION: Shows diminished protective sensation in his feet, but otherwise no lateralizing changes. PERTINENT LABORATORY WORK: From today shows a sodium of 134 mmol/L, potassium 5.5 mmol/L, chloride 97 mmol/L, and CO2 content of 27 mmol/L. His BUN is 84 and his creatinine 8.70. His random blood sugar done today is 133. Blood sugars have varied from 114 to 144. His serum calcium is 8.4. His AST is 141 and his ALT is 254. These numbers are somewhat higher. His TSH is 2.940. A hepatic ultrasound shows changes that raise concern over a "cirrhotic liver morphology". There is no evidence of cholelithiasis or biliary ductal dilatation. Blood cultures remain negative. A random vancomycin level done this morning was 15.1. ASSESSMENT: Mr. Cabrera appears to be somewhat improved from his general appearance. However, his AST and ALT are significantly higher than they were at the time of admission. Symptomatically he feels somewhat weaker, but cannot be much more specific than that. Other than his changes of venous stasis dermatitis, the ulceration on his right heel and the skin changes on his right hand do not appear to be acute at this time. The etiology for his elevated acute phase liver enzyme is difficult to assess. I doubt that there is any specific drug issue that is involved. Certainly he may have some degree of worsening hepatic congestion, although that would not necessarily account for a "cirrhotic appearing liver." RECOMMENDATIONS: Continue to monitor his liver function studies for now. Hemodialysis this afternoon. Orders have been written. If the removal of 4-5 liters of fluid is accomplished and his liver function studies improve, it may support the idea that hepatic congestion is the reason for the change in his enzymes. No other immediate recommendations. Post-hospital care is going to be somewhat difficult given the patient's generalized weakness.
--- NOTE | 2017-05-31 14:41 | ECHOCARDIOGRAM REPORT ---
*NOTICE TO RECEIVING CONSTITUTION PARTY AGENCY This information is strictly Confidential and protected under [place] law. [place] law prohibits you from making any further disclosure of this information unless further disclosure is expressly permitted by the written consent of the person to whom it pertains or is authorized by law. A general authorization for the release of medical or other information is not sufficient for this purpose. Hospital accepts no responsibility if the information is made available to any other person, INCLUDING THE PATIENT. Interpretation Summary * Name: RAJI MCGOVERN Study Date: 05/31/2017 11:22 AM * Patient Location: [id number]\1 HR: 79 * : 1945 (M/d/yyyy) Gender: Male Height: 70 in * Age: 72 yrs Ethnicity: CA Weight: 330 lb * Ordering Physician: Tin Coronado * Referring Physician: Self, Referred * Performed By: Sana Marroquin RCS * * Reason For Study: CHF * BSA: 2.6 m2 * -- Conclusions -- * Left ventricular systolic function is normal. * No regional wall motion abnormalities noted. * Ejection Fraction = 60-65%. * There is moderate concentric left ventricular hypertrophy. * Moderate to severe valvular aortic stenosis. * There is mild mitral stenosis. Procedure Details * A contrast injection of Definity was performed to improve assessment of LV function. * Contrast was injected into an intravenous site in the left arm. * One vial of Definity ultrasound contrast was diluted in normal saline to a total volume of 10 ml. A total of '4' ml of solution was administered during imaging. * Lot # [id number] of Definity utilized for procedure. * Expiration date 1AUG18. Left Ventricle * The left ventricle is grossly normal size. * There is moderate concentric left ventricular hypertrophy. * Ejection Fraction = 60-65%. * Left ventricular systolic function is normal. * No regional wall motion abnormalities noted. Right Ventricle * The right ventricle is not well visualized. * Right ventricular function cannot be assessed due to poor image quality. Atria * The left atrium is mildly dilated. * Right atrium not well visualized. * There is no evidence of atrial septal defect, but resolution does not allow assessment for a patent foramen ovale. Mitral Valve * Calcified mitral apparatus. * The mitral valve is not well visualized. * There is mild mitral stenosis. * Significant mitral regurgitation is absent. Tricuspid Valve * The tricuspid valve is not well visualized. * Significant tricuspid regurgitation is absent. Aortic Valve * The aortic valve is not well visualized. * Moderate to severe valvular aortic stenosis. * There is no significant aortic regurgitation. Pulmonic Valve * The pulmonary valve is not well seen, but the Doppler examination is normal without significant regurgitation or stenosis. Great Vessels * The aortic root is normal size. * The pulmonary is not well visualized. Pericardium/Pleural * There is no pericardial effusion. Great Vessels * Inferior vena cava not well visualized. MMode 2D Measurements and Calculations IVSd 1.4 cm LVIDd 5.8 cm LVIDs 3.7 cm LVPWd 1.3 cm IVS/LVPW 1.1 FS 36.5 % EDV(Teich) 166.9 ml ESV(Teich) 57.6 ml EF(Teich) 65.5 % EDV(cubed) 195.6 ml ESV(cubed) 50.1 ml EF(cubed) 74.4 % LV mass(C)d 353.6 grams LV mass(C)dI 136.9 grams/m\S\2 SV(Teich) 109.3 ml SI(Teich) 42.3 ml/m\S\2 SV(cubed) 145.5 ml SI(cubed) 56.3 ml/m\S\2 Ao root diam 2.9 cm Ao root area 6.7 cm\S\2 LVOT diam 2.0 cm LVOT area 3.3 cm\S\2 LVAd ap4 35.9 cm\S\2 LVLd ap4 8.5 cm EDV(MOD-sp4) 123.7 ml EDV(sp4-el) 129.5 ml LVAs ap4 16.3 cm\S\2 LVLs ap4 6.9 cm ESV(MOD-sp4) 31.4 ml ESV(sp4-el) 32.6 ml EF(MOD-sp4) 74.6 % EF(sp4-el) 74.9 % LVAd ap2 38.1 cm\S\2 LVLd ap2 8.2 cm EDV(MOD-sp2) 144.0 ml EDV(sp2-el) 149.9 ml LVAs ap2 19.8 cm\S\2 LVLs ap2 7.6 cm ESV(MOD-sp2) 41.4 ml ESV(sp2-el) 43.7 ml EF(MOD-sp2) 71.2 % EF(sp2-el) 70.9 % LVLd %diff -2.67 % EDV(MOD-bp) 133.9 ml LVLs %diff 8.8 % ESV(MOD-bp) 37.9 ml EF(MOD-bp) 71.7 % SV(MOD-sp4) 92.3 ml SI(MOD-sp4) 35.7 ml/m\S\2 SV(MOD-sp2) 102.5 ml SI(MOD-sp2) 39.7 ml/m\S\2 SV(MOD-bp) 96.0 ml SI(MOD-bp) 37.2 ml/m\S\2 SV(sp4-el) 96.9 ml SI(sp4-el) 37.5 ml/m\S\2 SV(sp2-el) 106.2 ml SI(sp2-el) 41.1 ml/m\S\2 Doppler Measurements and Calculations Ao V2 max 325.0 cm/sec Ao max PG 42.2 mmHg Ao max PG (full) 38.7 mmHg Ao V2 mean 258.8 cm/sec Ao mean PG 29.1 mmHg Ao mean PG (full) 27.1 mmHg Ao V2 VTI 77.9 cm JHONATAN(I,A) 0.85 cm\S\2 JHONATAN(I,D) 0.85 cm\S\2 JHONATAN(V,A) 0.94 cm\S\2 JHONATAN(V,D) 0.94 cm\S\2 LV V1 max PG 3.5 mmHg LV V1 mean PG 2.0 mmHg LV V1 max 94.1 cm/sec LV V1 mean 65.9 cm/sec LV V1 VTI 20.3 cm SV(Ao) 522.0 ml SI(Ao) 202.2 ml/m\S\2 SV(LVOT) 66.0 ml SI(LVOT) 25.6 ml/m\S\2
--- NOTE | 2017-05-31 14:41 | Progress Note ---
Subjective Date of Service: May 31, 2017. Subjective this pt was seen in dialysis, he is very tired and fatigued, he is a max assist. the trouble is that he has no snf benefits left and was denied rehab. he is being seen by Id and if cultures are negative will transition to oral meds 06/01 Problem List Medical Problems: (1) Ambulatory dysfunction Status: Acute (2) End stage renal disease Status: Acute (3) Failure of outpatient treatment Status: Acute (4) Febrile illness Status: Acute (5) Hyperkalemia Status: Acute (6) Infection of right foot Status: Acute (7) Infection of right hand Status: Acute (8) Leukocytosis Status: Acute (9) Superficial injury of right index finger with infection Status: Acute (10) Ulcers of both lower extremities Status: Acute Review of Systems Constitutional: + weakness, + fatigue, No fever, No chills Respiratory: No cough, No shortness of breath, No dyspnea on exertion Cardiac: + orthopnea, + PND, + edema, No chest pain Male : No dysuria, No urinary frequency Skin: + new/changing skin lesions, + color change Objective Vital Signs Date Time Temp Pulse Resp B/P (MAP) Pulse Ox O2 Delivery O2 Flow Rate FiO2 05/31/17 07:37 36.6 78 18 72/40 (51) 94 Room Air 80/50 (60) 05/31/17 07:13 37.3 76 18 76/48 (57) 99 Nasal Cannula 4.0 05/31/17 00:00 Nasal Cannula 4.0 05/30/17 23:33 37.4 85 18 110/61 (77) 98 4.0 05/30/17 16:10 Nasal Cannula 4.0 05/30/17 15:37 37.1 88 20 96/56 (69) 99 Nasal Cannula 4.0 05/30/17 08:00 98 Nasal Cannula 4.0 Physical Exam General Appearance: WD/WN, + moderate distress Neck: supple, thyroid normal, trachea midline Respiratory/Chest: chest non-tender, + decreased breath sounds Cardiovascular: regular rate, rhythm, + systolic murmur Abdomen: normal bowel sounds, soft Extremities: + pedal edema, + slow capillary refill, + swelling, + pertinent finding (right achilles are ulcer is healing and finger osteo is improved) Neurologic/Psychiatric: alert, oriented x 3 Laboratory Results Last 24 Hours Test 05/30/17 11:38 05/30/17 16:16 05/30/17 20:11 05/31/17 05:54 Bedside Glucose 125 mg/dl 134 mg/dl 114 mg/dl Prothrombin Time 23.5 SECONDS Prothromb Time International Ratio 2.1 Test 05/31/17 05:58 05/31/17 07:21 Sodium Level 134 mmol/L Potassium Level 5.5 mmol/L Chloride Level 97 mmol/L Carbon Dioxide Level 27 mmol/L Anion Gap 10.0 mmol/L Blood Urea Nitrogen 84 mg/dl Creatinine 8.70 mg/dl Est Creatinine Clear Calc Drug Dose 11.3 ml/min Estimated GFR () 6.3 Estimated GFR (Non- 5.5 BUN/Creatinine Ratio 9.6 Random Glucose 133 mg/dl Calcium Level 8.4 mg/dl Aspartate Amino Transf (AST/SGOT) 141 U/L Alanine Aminotransferase (ALT/SGPT) 254 U/L Thyroid Stimulating Hormone (TSH) 2.940 uIu/ml Random Vancomycin Level 15.1 mcg/ml Bedside Glucose 144 mg/dl Assessment and Plan 72-year-old male end-stage renal disease diabetic who presents with a diabetic foot infection, previous finger osteomyelitis, acute on chronic diastolic heart failure For the diabetic foot infection/finger infection vancomycin and Zosyn, wound care and will follow up with ID, recommending doxycycline, Pending transthoracic echo to evaluate for valvular vegetations, weakness is multifactorial and may require snf Transaminitis, u/s liver with some cirrhotic changes, did have hepatitis serology in 2013 and 2015, will repeat, may consider other causes, transaminase ? from congestion, since rising will as gi medicine to input and check ammonia in am 824 due to lethargy diabetes pharmacy glycemic management team to adjust his long-acting insulin and insulin sliding scale obesity hypoventilation syndrome/sleep apnea CPAP and the hospital supplied unit until his family can supply his own end-stage renal disease and hyperkalemia will continue hemodialysis treatments, still with some volume overload, but lower bp limits atrial fibrillation is rate controlled at this time he's anticoagulated with Coumadin and his INR is therapeutic Disposition is challenging given denied rehab Patient is a full code Continued [facility] stay due to: multiple IV medications needed Discharge planning: uncertain
--- NOTE | 2017-05-31 15:40 | Pharmacy Progress Note ---
Pharmacy Abx Dose Progress Nt Date of Service May 31, 2017. Pharmacy Dosing Scope The patient is currently receiving the following antimicrobial agents per Pharmacy consult: Vancomycin Objective Height (Feet): 5 Height (Inches): 10.00 Weight (Kilograms): 153.800 Vital Signs (Past 12Hrs) Vital Signs Past 12 Hours Date Time Temp Pulse Resp B/P (MAP) Pulse Ox O2 Delivery O2 Flow Rate FiO2 05/31/17 15:20 70 81/46 05/31/17 15:10 71 93/45 05/31/17 14:41 71 102/46 05/31/17 14:20 69 75/46 05/31/17 14:15 72 87/37 05/31/17 14:00 72 75/35 05/31/17 13:40 73 85/43 05/31/17 13:37 37.1 79 86/44 (58) 05/31/17 13:15 72 89/43 05/31/17 08:00 98 Nasal Cannula 4.0 05/31/17 07:37 36.6 78 18 72/40 (51) 94 Room Air 80/50 (60) 05/31/17 07:13 37.3 76 18 76/48 (57) 99 Nasal Cannula 4.0 Lab Results (24Hrs) Item Value Date Time Random Vancomycin Level 15.1 mcg/ml 05/31/17 0558 Micro Results Date/Time Source Procedure Growth Status 05/28/17 16:51 Blood Blood Culture - Preliminary NO GROWTH TO DATE. Resulted 05/28/17 16:44 Blood Blood Culture - Preliminary NO GROWTH TO DATE. Resulted Risk Factors for Resistance * Chronic dialysis within the past 30 days Assessment & Plan Assessment 72 year old male receiving Vancomycin for treatment of Diabetic foot and finger ulcerations Day # 4 of antimicrobial therapy Plan Vancomycin IV * Trough level of 15.1 mcg/mL is therapeutic * Gave supplemental 1gm dose of Vancomycin x 1 around 0900 * Random level ordered for 06/01/17 with am labs * We will continue to supplemental dose this patient based on random morning Vancomycin levels around his HD sessions. Pharmacy will continue to follow and will adjust dose/frequency as necessary. Thank you.
--- NOTE | 2017-05-31 16:26 | Gastrointestinal Consultation ---
Gastrointestinal Consultation Date of Consultation: May 31, 2017 Attending Physician: Dr. Louis Consulting Physician: Dr. Mancilla/ZURI Russell Reason for Consultation: Elevated liver panel History of Present Illness Patient is a 72 year old male with a complex past medical history significant for acute on chronic CHF, ESRD on hemodialysis, diabetes as well as chronic osteomyelitis requiring ongoing antibiotic treatment by Dr. Contreras. He states he presented to the ER after feeling "like punk" after dialysis last Monday. Throughout the weekend, he continued to have malaise as well as nausea with dry heaves. He remains chronically anemic with an arrival hemoglobin of 10.8 and hematocrit of 36.2. No leukocytosis. His liver panel was elevated as well with an AST of 51 and ALT of 82. Since admission, he did have a slight increase in transaminases to 141 and 254 respectively. Liver ultrasound was ordered and demonstrated nodularity consistent with cirrhosis. It appears from review of records, he has been noted to have intermittent although chronic transaminitis. TB was normal at 0.5 but albumin was slightly low at 3.3. In regard to symptoms at present, he denies any abdominal pain, nausea or vomiting, fever or chills, pruritus, dark urine, acholic stools, melena or hematochezia. Remains persistently fatigued. Ammonia level has been ordered and pending. Past Medical/Surgical History Medical Problems: (1) Ambulatory dysfunction Status: Acute (2) End stage renal disease Status: Acute (3) Failure of outpatient treatment Status: Acute (4) Febrile illness Status: Acute (5) Hyperkalemia Status: Acute (6) Infection of right foot Status: Acute (7) Infection of right hand Status: Acute (8) Leukocytosis Status: Acute (9) Superficial injury of right index finger with infection Status: Acute (10) Ulcers of both lower extremities Status: Acute Past Surgical History: AV fistula Family History Patient reports no known family medical history. Negative for GI malignancy or IBD Social History Smoking Status: Former Smoker Alcohol Use: none Drug Use: none Marital Status: Housing Status: lives with family Occupation Status: retired Allergies Coded Allergies: No Known Allergies (Verified , 04/13/17) Current Medications Home Meds and Scripts Medications Dose Route/Sig Max Daily Dose Days Date Category Dose Instructions Dulcolax (Bisacodyl) 5 Mg Tab 1 Tab PO UD 1 05/28/17 Reported Doxycycline Hyclate 100 Mg Tab 1 Tab PO BID 28 05/28/17 Reported Levothyroxine Sodium 50 Mcg Tab 1 Tab PO DAILYBB 05/28/17 Reported Cephalexin (Cephalexin Monohydrate) 1 Homepack Ea 1 Tab PO TID 10 05/28/17 Reported Betadine (Povidone-Iodine) 10 % Adriana 1 Dose TOP QAM 04/12/17 Reported Therems M (Multiple Vitamins W/ Minerals) 1 Tab Tab 1 Tab PO QAM 04/12/17 Reported Tylenol (Acetaminophen) 325 Mg Tab 650 Mg PO Q6 PRN 04/05/17 Reported Zyloprim (Allopurinol) 100 Mg Tab 100 Mg PO QAM 03/01/17 Reported Miralax (Polyethylene Glycol 3350) 1 Pow Pow 17 Gm PO QAM 12/04/16 Reported Neurontin (Gabapentin) 100 Mg Cap 1 Cap PO QPM 30 10/20/16 Reported Novolog Flexpen (Insulin Aspart) 100 Units/Ml Inj 0 Units SC AC 10/14/16 Rx goal range: 125-150. use correction factor of 15 use carbohydrate ratio of 1 unit of insulin for every 5 grams of carbohydrates consumed. Toujeo Solostar (Insulin Glargine) 300 Unit/Ml Inj 50 Units SC QAM 10/10/16 Reported Oxygen Gas 4 Liters NA CONTINOUS 02/17/15 Reported Phoslo 667 Mg (Calcium Acetate) 667 Mg Cap 3 Cap PO UD 08/13/14 Reported with snacks Coumadin (Warfarin Sodium) 5 Mg Tab 5 Mg PO HS 07/21/14 Reported Aspirin Ec (Aspirin) 81 Mg Tab 81 Mg PO QAM 10/23/13 Reported Zocor (Simvastatin) 40 Mg Tab 40 Mg PO QPM 01/11/13 Reported Sensipar (Cinacalcet) 30 Mg Tab 60 Mg PO DAILY 01/11/13 Reported WITH EVENING MEAL Phoslo 667 Mg (Calcium Acetate) 667 Mg Cap 4 Tabs PO TIDM 10/11/08 Reported take 4 caps with each meal Review of Systems See HPI for pertinent positives & negatives. A total of 10 systems reviewed and were otherwise negative. Physical Exam Date Time Temp Pulse Resp B/P (MAP) Pulse Ox O2 Delivery O2 Flow Rate FiO2 05/31/17 15:20 70 81/46 05/31/17 15:10 71 93/45 05/31/17 14:41 71 102/46 05/31/17 14:20 69 75/46 05/31/17 14:15 72 87/37 05/31/17 14:00 72 75/35 05/31/17 13:40 73 85/43 05/31/17 13:37 37.1 79 86/44 (58) 05/31/17 13:15 72 89/43 05/31/17 08:00 98 Nasal Cannula 4.0 05/31/17 07:37 36.6 78 18 72/40 (51) 94 Room Air 80/50 (60) 05/31/17 07:13 37.3 76 18 76/48 (57) 99 Nasal Cannula 4.0 05/31/17 00:00 Nasal Cannula 4.0 05/30/17 23:33 37.4 85 18 110/61 (77) 98 4.0 General Appearance: no apparent distress Eyes: EOMI ENT: hearing grossly normal Neck: supple Respiratory/Chest: + decreased breath sounds (bases) Cardiovascular: regular rate, rhythm, no gallop, no murmur Abdomen: normal bowel sounds, non tender, soft Neurologic/Psych: alert, normal mood/affect, oriented x 3 Skin: warm/dry Laboratory Results Last 24 Hours Test 05/30/17 16:16 05/30/17 20:11 05/31/17 05:54 05/31/17 05:58 Bedside Glucose 134 mg/dl 114 mg/dl Prothrombin Time 23.5 SECONDS Prothromb Time International Ratio 2.1 Sodium Level 134 mmol/L Potassium Level 5.5 mmol/L Chloride Level 97 mmol/L Carbon Dioxide Level 27 mmol/L Anion Gap 10.0 mmol/L Blood Urea Nitrogen 84 mg/dl Creatinine 8.70 mg/dl Est Creatinine Clear Calc Drug Dose 11.3 ml/min Estimated GFR () 6.3 Estimated GFR (Non- 5.5 BUN/Creatinine Ratio 9.6 Random Glucose 133 mg/dl Calcium Level 8.4 mg/dl Aspartate Amino Transf (AST/SGOT) 141 U/L Alanine Aminotransferase (ALT/SGPT) 254 U/L Thyroid Stimulating Hormone (TSH) 2.940 uIu/ml Random Vancomycin Level 15.1 mcg/ml Test 05/31/17 07:21 05/31/17 11:49 Bedside Glucose 144 mg/dl 174 mg/dl Impression Patient is a 72 year old male with a history of acute on chronic CHF, ESRD on hemodialysis and chronic osteomyelitis admitted with progressive fatigue and malaise with increasing hepatic transaminases. Likely multifactorial but could include (possible FOREMAN) cirrhosis vs antibiotic use vs hepatic congestion vs other. Plan 1. Check a repeat CXR and BNP. 2. Await ammonia level as ordered. 3. Trend transaminase levels. 4. Recent hepatitis serologies reviewed and negative. 5. Additional GI work up can be performed as an outpatient if appropriate. Thank you for allowing us to participate in the care of this pleasant gentleman. If you have any questions or concerns, please do not hesitate to contact us. Agree with ZURI Russell as above Abd: Soft, NT, ND, +BS Continue current therapy Continue supportive care
[2017-05-31] MEDS: CINACALCET HCL 90 MG PO SCH (20:09)
[2017-05-31] MEDS: SIMVASTATIN 40 MG TAB PO SCH (20:10)
[2017-05-31] MEDS: GABAPENTIN 100 MG CAP PO SCH (20:10)
[2017-05-31] MEDS: WARFARIN SOD 5 MG TAB PO SCH (20:11)
--- NOTE | 2017-05-31 22:14 | DIAGNOSTIC IMAGING REPORT ---
SINGLE VIEW CHEST CLINICAL HISTORY: Heart failure. FINDINGS: An AP, portable, upright chest radiograph is compared to study dated 05/28/2017. The examination is severely degraded by large body habitus, patient rotation, portable technique. A vascular stent projects over the right upper chest. A single lead cardiac pacemaker is unchanged in position. The heart is enlarged and there is atherosclerotic calcification of the thoracic aorta. There is pulmonary vascular congestion and mild interstitial edema. Small pleural effusions are identified. Bibasilar airspace opacities are typical for atelectasis. A calcified granuloma is again seen in the right lower lung. No pneumothorax is identified. The skeletal structures are osteopenic. The bony thorax is grossly intact. IMPRESSION: 1. Cardiomegaly and cardiac pacemaker with evidence of congestive failure and interstitial edema. This has modestly improved from 05/28/2017. 2. Layering pleural effusions and bibasilar atelectasis. Electronically signed by: Garry Milian M.D. 05/31/2017 10:13 PM Dictated Date/Time: 05/31/2017 10:12 PM
[2017-06-01] MEDS: CALCIUM ACETATE 667MG GELCAP PO SCH ×4 (00:08→17:09)
[2017-06-01 00:28] VITALS: BP 77/43; PULSE 68; TEMP 37.4; O2SAT 98
[2017-06-01] MEDS: LEVOTHYROXINE 50 MCG TAB PO SCH (05:25)
[2017-06-01 07:08] LABS: HEMATOCRIT 32.4 % (42-52); MEAN CELL VOLUME 93.9 fL (80-100); MEAN CORPUSCULAR HGB CONC 30.9 g/dl (32-36); MEAN PLATELET VOLUME 10.5 fL (7.4-10.4); PLATELET COUNT 208 K/uL (130-400); RED BLOOD COUNT 3.45 M/uL (4.7-6.1); WHITE BLOOD COUNT 7.59 K/uL (4.8-10.8)
[2017-06-01 07:16] LABS: INR 2.2 (0.9-1.1)
[2017-06-01 07:44] VITALS: BP 86/45; PULSE 69; TEMP 36.9; O2SAT 100
[2017-06-01 07:57] LABS: BUN/CREATININE RATIO 7.4 (10-20); CALCIUM 8.2 mg/dl (8.5-10.1); CREATININE 6.7 mg/dl (0.60-1.40); POTASSIUM 4.9 mmol/L (3.5-5.1)
[2017-06-01 08:00] VITALS: O2SAT 100
[2017-06-01] MEDS: PIPERACILL/TAZOBAC IV 4.5 GM in DEXTROSE 5% 100ML 100 ML IV SCH ×2 (08:14→21:41)
[2017-06-01] MEDS: POLYETHYLENE (MIRALAX) 17 GM PACK PO SCH (08:18)
[2017-06-01] MEDS: ASPIRIN 81 MG ECTAB PO SCH (08:18)
[2017-06-01] MEDS: ALLOPURINOL 100 MG TAB PO SCH (08:18)
[2017-06-01] MEDS: INSULIN ASPART 100 UNITS/ML 3 ML PEN SC SCH ×4 (08:25→21:42)
[2017-06-01] MEDS: INSULIN GLARGINE 300 UNIT/ML SC SCH (08:26)
[2017-06-01] MEDS ORDERED: EPOETIN ALFA 10,000 UNITS/ML VIAL IV. ONE (10:45)
--- NOTE | 2017-06-01 10:57 | NEPHROLOGY PROGRESS NOTE ---
DATE: 06/01/2017 DATE: 06/01/2017 SUBJECTIVE: Mr. Cabrera says that he is feeling somewhat better this morning. His strength seems to be a bit better. His appetite is definitely improved. He denies having any nausea. He has no specific symptoms of uremia or volume overload. His dialysis treatment yesterday was uneventful, but post dialysis he was profoundly weak and he said that even needed help eating. Nonetheless, he does feel better today. He denies having any chest pain. He denies having any significant shortness of breath. He denies having a cough. He has no significant extremity pain at this time. He denies having any abdominal pain. OBJECTIVE: GENERAL: On physical exam, Mr. Cabrera appears as a morbidly obese gentleman who was sitting in his chair at the time seen. VITAL SIGNS: She is afebrile (36.9), his maximum temperature in the course of the past 24 hours was 37.4 degrees shortly after midnight. His blood pressure 86/45, his pulse 69 and irregular, respiratory rate 20, his pulse ox 100% on 4 liters of oxygen via nasal cannula. SKIN: Shows normal skin turgor. He has changes of venous stasis dermatitis on his lower extremities. He has scars from prior procedures, most notably a scar in the right antecubital fossa and scars in his right upper arm from the creation of his AV fistula and multiple dialysis needle track henry. He has some healing areas on the digits of the right hand which are not at all inflamed at this time. His lower extremities were dressed, and I could not examine the shallow ulceration that he had involving his right heel. LYMPHATICS: Show no palpable lymphadenopathy. He has no evidence of lymphangitis in areas that can be examined. HEAD: Normal. EYES: Grossly normal. He has no conjunctival icterus. The ocular fundi were not examined. EARS, NOSE, MOUTH AND THROAT: Unremarkable. His oral mucous membranes are moist. NECK: Supple. He has no jugular venous distention. The exam is limited by his body habitus. He has no carotid bruits. CHEST: Shows diminished breath sounds throughout particularly at the bases. The diaphragms are elevated related to his body habitus. He has some coarse rales throughout his lower lung hernandez bilaterally. CARDIAC EXAMINATION: Shows an irregular rhythm. He has a grade 3/6 systolic ejection murmur at the upper left sternal border and base. ABDOMEN: Grossly obese. He has no obvious organomegaly or mass. There is no abdominal tenderness. Bowel sounds are present. EXTREMITIES: Show 1-2+ firm lower extremity edema. His legs are wrapped. I could not examine the ulceration on his right heel. Femoral pulses are barely palpable. His right upper arm AV fistula is functional. NEUROLOGIC EXAMINATION: Shows decrease in protective sensation in his feet but no lateralizing changes. LABORATORY DATA: Pertinent laboratory work from today showed a white count of 7,590. His hemoglobin is 10.0. His hematocrit 32.4. His platelet count 208,000. A random blood sugar was 127. Blood sugars have been reasonably well controlled. Repeat transaminases have not been done today. ASSESSMENT: Mr. Cabrera appears to be improved. Right now he is anticipating being discharged to [facility]. Hopefully he will be accepted there. PLAN: For now we will schedule with his inpatient dialysis for tomorrow morning. No other immediate recommended changes.
--- NOTE | 2017-06-01 12:27 | Pharmacy Progress Note ---
Pharmacy Antibiotic Prog Note Date of Service Jun 01, 2017. Subjective The patient is currently receiving supplemental vancomycin doses based on dialysis schedule The patient is currently on day # 5 of IV therapy. Objective Height (Feet): 5 Height (Inches): 10.00 Weight (Kilograms): 149.600 Levels: Item Value Date Time Random Vancomycin Level 16.0 mcg/ml 06/01/17 0657 Lab Results (24hrs): Test 05/31/17 19:31 05/31/17 20:03 06/01/17 06:53 06/01/17 06:57 Pro-B-Type Natriuretic Peptide > 00016 pg/ml (0-900) Hepatitis C Antibody NEG (NEG) Bedside Glucose 132 mg/dl (70-99) Prothrombin Time 24.0 SECONDS (9.0-12.0) Prothromb Time International Ratio 2.2 (0.9-1.1) Random Vancomycin Level 16.0 mcg/ml Test 06/01/17 06:58 06/01/17 07:42 White Blood Count 7.59 K/uL (4.8-10.8) Red Blood Count 3.45 M/uL (4.7-6.1) Hemoglobin 10.0 g/dL (14.0-18.0) Hematocrit 32.4 % (42-52) Mean Corpuscular Volume 93.9 fL (80-100) Mean Corpuscular Hemoglobin 29.0 pg (25-34) Mean Corpuscular Hemoglobin Concent 30.9 g/dl (32-36) RDW Standard Deviation 63.0 fL (36.4-46.3) RDW Coefficient of Variation 18.4 % (11.5-14.5) Platelet Count 208 K/uL (130-400) Mean Platelet Volume 10.5 fL (7.4-10.4) Sodium Level 135 mmol/L (136-145) Potassium Level 4.9 mmol/L (3.5-5.1) Chloride Level 100 mmol/L (98-107) Carbon Dioxide Level 27 mmol/L (21-32) Anion Gap 8.0 mmol/L (3-11) Blood Urea Nitrogen 50 mg/dl (7-18) Creatinine 6.70 mg/dl (0.60-1.40) Est Creatinine Clear Calc Drug Dose 14.6 ml/min Estimated GFR () 8.7 Estimated GFR (Non- 7.5 BUN/Creatinine Ratio 7.4 (10-20) Random Glucose 152 mg/dl (70-99) Calcium Level 8.2 mg/dl (8.5-10.1) Ammonia 23.0 umol/L (11-32) Bedside Glucose 148 mg/dl (70-99) Micro Results: See EMR Recent Pertinent Medications Zosyn 4.5mg q12 Assessment & Plan This/These drug level(s) are:therapeutic Patient currently scheduled for next dialysis session tomorrow morning. Will order a 750mg dose before dialysis tomorrow and repeat a level with AM labs on . Goal trough level estimate: between 10 - 15 mcg/mL. Peak and trough or random level has been ordered for: . Pharmacy will continue to follow and will adjust dose/frequency as necessary. Thank you
[2017-06-01 13:13] VITALS: PULSE 97; O2SAT 98
[2017-06-01 15:54] VITALS: BP 102/60; PULSE 61; TEMP 36.4; O2SAT 97
[2017-06-01] MEDS ORDERED: SODIUM CHLORIDE 0.65% NA SOLN 45 ML (OCEAN) PRN (19:45)
[2017-06-01] MEDS: CALCIUM ACETATE 667MG GELCAP PO PRN (20:30)
--- NOTE | 2017-06-01 20:46 | Hospitalist Progress Note ---
Hospitalist Progress Note Date of Service Jun 01, 2017. Subjective Pt evaluation today including: conversation w/ patient, physical exam, lab review patient with new diarrhea Objective Vital Signs Date Time Temp Pulse Resp B/P (MAP) Pulse Ox O2 Delivery O2 Flow Rate FiO2 06/01/17 08:00 100 Nasal Cannula 4.0 06/01/17 07:44 36.9 69 20 86/45 (59) 100 Nasal Cannula 4.0 06/01/17 00:28 37.4 68 20 77/43 (54) 98 Nasal Cannula 4.0 06/01/17 00:00 Nasal Cannula 4.0 05/31/17 20:00 Nasal Cannula 4.0 05/31/17 18:11 36.6 81 84/40 (55) 05/31/17 16:00 97 Nasal Cannula 4.0 Physical Exam General Appearance: no apparent distress Eyes: normal inspection ENT: hearing grossly normal Neck: supple Respiratory/Chest: chest non-tender Cardiovascular: regular rate, rhythm Abdomen: normal bowel sounds Extremities: normal range of motion Laboratory Results Last 24 Hours Test 05/31/17 16:48 05/31/17 19:31 05/31/17 20:03 06/01/17 06:53 Bedside Glucose 127 mg/dl 132 mg/dl Pro-B-Type Natriuretic Peptide > 39943 pg/ml Hepatitis C Antibody NEG Prothrombin Time 24.0 SECONDS Prothromb Time International Ratio 2.2 Test 06/01/17 06:57 06/01/17 06:58 06/01/17 07:42 Random Vancomycin Level 16.0 mcg/ml White Blood Count 7.59 K/uL Red Blood Count 3.45 M/uL Hemoglobin 10.0 g/dL Hematocrit 32.4 % Mean Corpuscular Volume 93.9 fL Mean Corpuscular Hemoglobin 29.0 pg Mean Corpuscular Hemoglobin Concent 30.9 g/dl RDW Standard Deviation 63.0 fL RDW Coefficient of Variation 18.4 % Platelet Count 208 K/uL Mean Platelet Volume 10.5 fL Sodium Level 135 mmol/L Potassium Level 4.9 mmol/L Chloride Level 100 mmol/L Carbon Dioxide Level 27 mmol/L Anion Gap 8.0 mmol/L Blood Urea Nitrogen 50 mg/dl Creatinine 6.70 mg/dl Est Creatinine Clear Calc Drug Dose 14.6 ml/min Estimated GFR () 8.7 Estimated GFR (Non- 7.5 BUN/Creatinine Ratio 7.4 Random Glucose 152 mg/dl Calcium Level 8.2 mg/dl Ammonia 23.0 umol/L Bedside Glucose 148 mg/dl Assessment and Plan 72-year-old male end-stage renal disease diabetic who presents with a diabetic foot infection, previous finger osteomyelitis, acute on chronic diastolic heart failure 1. For the diabetic foot infection/finger infection vancomycin and Zosyn, wound care and will follow up with ID, recommending doxycycline, Pending transthoracic echo to evaluate for valvular vegetations, weakness is multifactorial and may require snf 2. diabetes pharmacy glycemic management team to adjust his long-acting insulin and insulin sliding scale 3. obesity hypoventilation syndrome/sleep apnea CPAP and the hospital supplied unit until his family can supply his own 4. end-stage renal disease and hyperkalemia will continue hemodialysis treatments, still with some volume overload, but lower bp limits 5. atrial fibrillation is rate controlled at this time he's anticoagulated with Coumadin and his INR is therapeutic Disposition working on rehab Discharge planning: uncertain
[2017-06-01] MEDS: GABAPENTIN 100 MG CAP PO SCH (21:38)
[2017-06-01] MEDS: CINACALCET HCL 90 MG PO SCH (21:39)
[2017-06-01] MEDS: WARFARIN SOD 5 MG TAB PO SCH (21:39)
[2017-06-01] MEDS: SIMVASTATIN 40 MG TAB PO SCH (21:40)
[2017-06-01 23:06] VITALS: BP 91/53; PULSE 74; O2SAT 98
[2017-06-02] VITALS (23 sets, daily range): BP systolic 67–96; BP diastolic 32–63; PULSE 59–75; TEMP 36–36.6; O2SAT 99–100
[2017-06-02] MEDS: LEVOTHYROXINE 50 MCG TAB PO SCH (05:49)
[2017-06-02] MEDS ORDERED: VANCOMYCIN INJ 750 MG in SODIUM CHLORIDE 0.9% 250ML 250 ML IV ONE (06:00)
[2017-06-02] MEDS ORDERED: SODIUM CHLORIDE 0.9% 1000ML 1,000 ML IV PRN (06:00)
[2017-06-02] MEDS: CALCIUM ACETATE 667MG GELCAP PO SCH ×3 (07:53→17:21)
[2017-06-02] MEDS: ALLOPURINOL 100 MG TAB PO SCH (07:54)
[2017-06-02] MEDS: POLYETHYLENE (MIRALAX) 17 GM PACK PO SCH (07:54)
[2017-06-02] MEDS: ASPIRIN 81 MG ECTAB PO SCH (07:54)
[2017-06-02] MEDS ORDERED: HEPARIN SOD (PORCINE) 1000 UNIT/ML 10 ML VIAL IV SCH ×2 (08:00)
[2017-06-02] MEDS ORDERED: EPOETIN ALFA INJ 15,000 UNITS in SYRINGE 0 ML IV. SCH (08:00)
[2017-06-02] MEDS: PIPERACILL/TAZOBAC IV 4.5 GM in DEXTROSE 5% 100ML 100 ML IV SCH (08:07)
[2017-06-02 08:49] LABS: BASO % 0.4 %; BASO ABS # 0.03 K/uL (0-0.2); COMPLETE YES; EOS % 5.2 %; HEMATOCRIT 32.2 % (42-52); IG% 0.8 %; LYMPH % 13.3 %; LYMPH ABS # 1.01 K/uL (1.2-3.4); MEAN CELL VOLUME 93.6 fL (80-100); MEAN CORPUSCULAR HEMOGLOBIN 28.8 pg (25-34); MEAN CORPUSCULAR HGB CONC 30.7 g/dl (32-36); MEAN PLATELET VOLUME 10.1 fL (7.4-10.4); MONO % 6.3 %; PLATELET COUNT 238 K/uL (130-400); RED BLOOD COUNT 3.44 M/uL (4.7-6.1); WHITE BLOOD COUNT 7.57 K/uL (4.8-10.8)
[2017-06-02] MEDS: INSULIN ASPART 100 UNITS/ML 3 ML PEN SC SCH ×4 (08:57→21:34)
[2017-06-02] MEDS: INSULIN GLARGINE 300 UNIT/ML SC SCH (08:58)
[2017-06-02 09:02] LABS: INR 2.2 (0.9-1.1); PROTHROMBIN TIME (PATIENT) 24.2 SECONDS (9.0-12.0)
[2017-06-02 09:46] LABS: BUN/CREATININE RATIO 8.8 (10-20); CALCIUM 8.3 mg/dl (8.5-10.1); CREATININE 9.2 mg/dl (0.60-1.40); POTASSIUM 5.1 mmol/L (3.5-5.1)
--- NOTE | 2017-06-02 10:31 | PROGRESS NOTE ---
DATE: 06/02/2017 SUBJECTIVE: Mr. Cabrera says that he is feeling a bit fatigued, but otherwise well. He still says that he is significantly weak. He has had no chills or fevers. He has had no sweats. His appetite is good. He denies chest pain and denies significant shortness of breath at rest. He has no cough. There are no specific symptoms of uremia or volume overload. Apparently transfer to [facility] is currently not approved. OBJECTIVE: GENERAL: On physical exam when seen, Mr. Cabrera was in the midst of his dialysis treatment. VITAL SIGNS: He is afebrile (36.6), his blood pressure 87/44, his pulse 60 and regular, respiratory rate is 18, and his pulse ox 98%-100% on 3 liters of oxygen via nasal cannula. SKIN: Shows normal skin turgor. He has very obvious changes of venous stasis dermatitis on both legs. He has an erupted lesion on the medial aspect of his distal left leg that appears to be scabbing off. The ulcer on his right heel was not undressed to be examined. He has no evidence of cellulitis. The skin lesions on his hands continued to heal nicely. His skin is generally dry. LYMPHATICS: Show no palpable lymphadenopathy. He has no evidence of lymphangitis. HEAD: Normal. EYES: Grossly normal. The ocular fundi were not examined. EARS, NOSE, MOUTH AND THROAT: Unremarkable. His oral mucous membranes are moist. NECK: Supple. I see no jugular venous distention, but the exam is limited by his body habitus. I hear no carotid bruit and there is no thyromegaly. CHEST: Shows diminished breath sounds throughout, particularly at the bases. Diaphragms are elevated related to his body habitus. I hear no wheezes, rales or rhonchi. He has a palpable pacemaker beneath the distal left clavicle. CARDIAC: Shows a regular (? paced) rhythm. He has a grade 3/6 systolic murmur at the upper left sternal border and base. ABDOMEN: Morbidly obese. There is no tenderness. Bowel sounds are normal. There is no organomegaly or mass. EXTREMITIES: Show 1-2+ firm lower extremity edema in the setting of venous stasis dermatitis. He has skin changes noted. Femoral pulses are barely palpable and I cannot palpate pedal pulses. There is no obvious cyanosis, however. He has a right upper arm AV fistula, which is functional. NEUROLOGIC: Shows no lateralizing changes. PERTINENT LABORATORY WORK: From today shows a white count of 7570 with an essentially normal differential. His hemoglobin is 9.9 and his hematocrit 32.2. His platelet count is 238,000. Clinical chemistries from today show a sodium of 133 mmol/L, potassium 5.1 mmol/L, chlorides 97 mmol/L, and CO2 content 25 mmol/L. His BUN is 81. His creatinine 9.20. Blood sugars vary from 129 to 181. His serum calcium is 8.3. His prothrombin time is 24.2 with an INR of 2.2. ASSESSMENT: Certainly from the renal standpoint, Mr. Cabrera remains perfectly stable. He is undergoing his regular hemodialysis treatment today. He has no fever. His white count is normal and he has a normal differential. Certainly any sign of acute infection appears to have resolved. He has the chronic issues with cutaneous infections and injuries involving his legs. At the current time, there is an eruptive change on his distal left leg. He is being followed by the wound clinic. PLAN: Continue on his current medications and diet. If the patient is to be discharged for transfer to [facility], he should be sent on his usual medications plus whatever continuation of antibiotic therapy is felt to be necessary. I will be away for the next [address] Wilson is likely rounding and will see Mr. Cabrera in my absence should it be necessary.
[2017-06-02] MEDS: CALCIUM ACETATE 667MG GELCAP PO PRN ×2 (15:32→19:00)
[2017-06-02] MEDS ORDERED: NURSING VERBAL MED ORDER ONE (16:15)
[2017-06-02] MEDS: LOPERAMIDE HCL 2 MG CAP PO PRN (19:00)
[2017-06-02] MEDS ORDERED: SODIUM CHLORIDE 0.65% NA SOLN 45 ML (OCEAN) PRN (21:00)
[2017-06-02] MEDS: GABAPENTIN 100 MG CAP PO SCH (21:32)
[2017-06-02] MEDS: WARFARIN SOD 5 MG TAB PO SCH (21:32)
[2017-06-02] MEDS: SIMVASTATIN 40 MG TAB PO SCH (21:32)
[2017-06-02] MEDS: CINACALCET HCL 90 MG PO SCH (21:33)
[2017-06-03] MEDS: LOPERAMIDE HCL 2 MG CAP PO PRN ×3 (00:32→19:18)
[2017-06-03 02:33] VITALS: BP 78/43; PULSE 64; TEMP 36.8; O2SAT 97
--- NOTE | 2017-06-03 03:14 | Hospitalist Progress Note ---
Hospitalist Progress Note Date of Service Jun 02, 2017. Subjective Pt evaluation today including: conversation w/ patient patient with diarrhea Objective Vital Signs Date Time Temp Pulse Resp B/P (MAP) Pulse Ox O2 Delivery O2 Flow Rate FiO2 06/03/17 02:33 36.8 64 18 78/43 (55) 97 06/03/17 00:00 Nasal Cannula 4.0 06/02/17 16:21 36.0 75 20 80/48 (59) 99 Nasal Cannula 4.0 06/02/17 16:00 Nasal Cannula 3.0 06/02/17 14:22 36.4 65 85/62 (70) 06/02/17 13:45 63 78/63 06/02/17 13:30 65 88/39 06/02/17 13:15 59 96/46 06/02/17 13:00 64 96/50 06/02/17 12:45 62 76/37 06/02/17 12:30 60 67/35 06/02/17 12:15 60 74/32 06/02/17 12:00 60 67/34 06/02/17 11:45 68 74/37 06/02/17 11:30 69 86/44 06/02/17 11:15 61 73/42 06/02/17 11:00 64 82/46 06/02/17 10:45 62 81/47 06/02/17 10:30 61 82/48 06/02/17 10:15 60 92/46 06/02/17 10:00 63 78/41 06/02/17 09:45 60 87/44 06/02/17 09:24 67 86/48 06/02/17 09:20 36.6 65 84/43 (57) 06/02/17 08:00 100 Nasal Cannula 3.0 06/02/17 07:18 36.5 63 18 88/51 (63) 100 Nasal Cannula 3.0 Physical Exam Eyes: normal inspection ENT: hearing grossly normal Neck: trachea midline Respiratory/Chest: lungs clear Cardiovascular: regular rate, rhythm Abdomen: normal bowel sounds Extremities: normal range of motion Neurologic/Psychiatric: alert Laboratory Results Last 24 Hours Test 06/02/17 07:44 06/02/17 08:34 06/02/17 16:32 06/02/17 19:59 Bedside Glucose 140 mg/dl 187 mg/dl 195 mg/dl White Blood Count 7.57 K/uL Red Blood Count 3.44 M/uL Hemoglobin 9.9 g/dL Hematocrit 32.2 % Mean Corpuscular Volume 93.6 fL Mean Corpuscular Hemoglobin 28.8 pg Mean Corpuscular Hemoglobin Concent 30.7 g/dl Platelet Count 238 K/uL Mean Platelet Volume 10.1 fL Neutrophils (%) (Auto) 74.0 % Lymphocytes (%) (Auto) 13.3 % Monocytes (%) (Auto) 6.3 % Eosinophils (%) (Auto) 5.2 % Basophils (%) (Auto) 0.4 % Neutrophils # (Auto) 5.60 K/uL Lymphocytes # (Auto) 1.01 K/uL Monocytes # (Auto) 0.48 K/uL Eosinophils # (Auto) 0.39 K/uL Basophils # (Auto) 0.03 K/uL RDW Standard Deviation 63.2 fL RDW Coefficient of Variation 18.3 % Immature Granulocyte % (Auto) 0.8 % Immature Granulocyte # (Auto) 0.06 K/uL Prothrombin Time 24.2 SECONDS Prothromb Time International Ratio 2.2 Sodium Level 133 mmol/L Potassium Level 5.1 mmol/L Chloride Level 97 mmol/L Carbon Dioxide Level 25 mmol/L Anion Gap 11.0 mmol/L Blood Urea Nitrogen 81 mg/dl Creatinine 9.20 mg/dl Est Creatinine Clear Calc Drug Dose 10.6 ml/min Estimated GFR () 5.9 Estimated GFR (Non- 5.1 BUN/Creatinine Ratio 8.8 Random Glucose 181 mg/dl Calcium Level 8.3 mg/dl Assessment and Plan 72-year-old male end-stage renal disease diabetic who presents with a diabetic foot infection, previous finger osteomyelitis, acute on chronic diastolic heart failure 1. For the diabetic foot infection/finger infection vancomycin and Zosyn, wound care and will follow up with ID, recommending doxycycline, Pending transthoracic echo to evaluate for valvular vegetations, weakness is multifactorial and may require snf. Vanco and Zosyn are discontinued start doxy 2. diabetes pharmacy glycemic management team to adjust his long-acting insulin and insulin sliding scale 3. obesity hypoventilation syndrome/sleep apnea CPAP and the hospital supplied unit until his family can supply his own 4. end-stage renal disease and hyperkalemia will continue hemodialysis treatments, still with some volume overload, but lower bp limits 5. atrial fibrillation is rate controlled at this time he's anticoagulated with Coumadin and his INR is therapeutic Disposition working on rehab Discharge planning: uncertain
[2017-06-03] MEDS ORDERED: VANCOMYCIN TROUGH ONE (04:44)
[2017-06-03 05:40] LABS: BASO % 0.3 %; BASO ABS # 0.03 K/uL (0-0.2); COMPLETE YES; EOS % 4.4 %; HEMATOCRIT 32.3 % (42-52); IG% 1.4 %; LYMPH % 13.8 %; MEAN CELL VOLUME 93.4 fL (80-100); MEAN CORPUSCULAR HEMOGLOBIN 29.2 pg (25-34); MEAN CORPUSCULAR HGB CONC 31.3 g/dl (32-36); MEAN PLATELET VOLUME 10.2 fL (7.4-10.4); NEUT % 72.1 %; PLATELET COUNT 255 K/uL (130-400); RED BLOOD COUNT 3.46 M/uL (4.7-6.1); WHITE BLOOD COUNT 8.67 K/uL (4.8-10.8)
[2017-06-03 05:54] LABS: INR 2.1 (0.9-1.1); PROTHROMBIN TIME (PATIENT) 22.8 SECONDS (9.0-12.0)
[2017-06-03] MEDS: LEVOTHYROXINE 50 MCG TAB PO SCH (06:06)
[2017-06-03 06:17] LABS: BUN/CREATININE RATIO 7.3 (10-20); CALCIUM 8.2 mg/dl (8.5-10.1); POTASSIUM 4.4 mmol/L (3.5-5.1)
[2017-06-03 07:02] VITALS: BP 72/43; PULSE 67; TEMP 36.6; O2SAT 99
[2017-06-03] MEDS: ALLOPURINOL 100 MG TAB PO SCH (08:34)
[2017-06-03] MEDS: ASPIRIN 81 MG ECTAB PO SCH (08:34)
[2017-06-03] MEDS: CALCIUM ACETATE 667MG GELCAP PO SCH ×3 (08:34→17:20)
[2017-06-03] MEDS: DOXYCYCLINE HYCLATE 100 MG CAP PO SCH ×2 (08:34→21:06)
[2017-06-03] MEDS: POLYETHYLENE (MIRALAX) 17 GM PACK PO SCH (08:34)
[2017-06-03] MEDS: INSULIN ASPART 100 UNITS/ML 3 ML PEN SC SCH ×4 (08:42→21:35)
[2017-06-03] MEDS: INSULIN GLARGINE 300 UNIT/ML SC SCH (08:43)
--- NOTE | 2017-06-03 12:56 | Nephrology Progress Note ---
Nephrology Progress Note Date of Service Jun 03, 2017. Chief Complaint End-stage renal disease on hemodialysis. Adrian Fried was seen and examined in his room this morning. Overall he feels better and appetite seems to be improving. He has been having difficulty sleeping at night as he usually sleeps in recliner and a large enough recliner for him is not available currently. had dialysis yesterday, currently volume status electrolyte acceptable. Blood pressure relatively low, chronic, asymptomatic. Review of Systems A complete review of systems was performed. Pertinent positives are noted above. All other systems are negative. Vital Signs Last 8 Hrs Date Time Temp Pulse Resp B/P (MAP) Pulse Ox O2 Delivery O2 Flow Rate FiO2 06/03/17 08:00 Nasal Cannula 4.0 06/03/17 07:02 36.6 67 18 72/43 (53) 99 Nasal Cannula 3.0 I & O 24-Hour Column 06/04/17 07:59 Output Total 0 ml Balance 0 ml Last Recorded Weight Weight (Kilograms): 149.600 Physical Exam GENERAL: Elderly mainly, AAA x 3, morbidly obese, not in any distress. NECK: Supple, no JVD. RESPIRATORY: Normal breathing efforts, no accessory muscle use, clear to auscultation bilaterally, no wheezes or rales. CARDIOVASCULAR: S1, S2 normal, rate rhythm regular. EXTREMITY: 1+ B/L lower extremity edema and lower extremity diabetic ulcer NEURO: speech fluent. PSYCHIATRY: Normal mood and judgment Family History Patient reports no known family medical history. Negative for CKD / ESRD Social History Smoking Status: Never smoker Drug Use: none Marital Status: Housing Status: lives with family Occupation: retired . Resides in [place], [place]. 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 Laboratory Results Past 24 Hours 06/03/17 05:25 Red Blood Count 3.46, Mean Corpuscular Volume 93.4, Mean Corpuscular Hemoglobin 29.2, Mean Corpuscular Hemoglobin Concent 31.3, Mean Platelet Volume 10.2, Neutrophils (%) (Auto) 72.1, Lymphocytes (%) (Auto) 13.8, Monocytes (%) (Auto) 8.0, Eosinophils (%) (Auto) 4.4, Basophils (%) (Auto) 0.3, Neutrophils # (Auto) 6.25, Lymphocytes # (Auto) 1.20, Monocytes # (Auto) 0.69, Eosinophils # (Auto) 0.38, Basophils # (Auto) 0.03 06/03/17 05:25 Test 06/02/17 16:32 06/02/17 19:59 06/03/17 05:25 06/03/17 07:23 Bedside Glucose 187 mg/dl (70-99) 195 mg/dl (70-99) 173 mg/dl (70-99) White Blood Count 8.67 K/uL (4.8-10.8) Red Blood Count 3.46 M/uL (4.7-6.1) Hemoglobin 10.1 g/dL (14.0-18.0) Hematocrit 32.3 % (42-52) Mean Corpuscular Volume 93.4 fL (80-100) Mean Corpuscular Hemoglobin 29.2 pg (25-34) Mean Corpuscular Hemoglobin Concent 31.3 g/dl (32-36) Platelet Count 255 K/uL (130-400) Mean Platelet Volume 10.2 fL (7.4-10.4) Neutrophils (%) (Auto) 72.1 % Lymphocytes (%) (Auto) 13.8 % Monocytes (%) (Auto) 8.0 % Eosinophils (%) (Auto) 4.4 % Basophils (%) (Auto) 0.3 % Neutrophils # (Auto) 6.25 K/uL (1.4-6.5) Lymphocytes # (Auto) 1.20 K/uL (1.2-3.4) Monocytes # (Auto) 0.69 K/uL (0.11-0.59) Eosinophils # (Auto) 0.38 K/uL (0-0.5) Basophils # (Auto) 0.03 K/uL (0-0.2) RDW Standard Deviation 61.7 fL (36.4-46.3) RDW Coefficient of Variation 18.2 % (11.5-14.5) Immature Granulocyte % (Auto) 1.4 % Immature Granulocyte # (Auto) 0.12 K/uL (0.00-0.02) Nucleated RBC Absolute Count (auto) 0.02 K/uL (0-0) Nucleated Red Blood Cells % 0.2 % Prothrombin Time 22.8 SECONDS (9.0-12.0) Prothromb Time International Ratio 2.1 (0.9-1.1) Anion Gap 9.0 mmol/L (3-11) Est Creatinine Clear Calc Drug Dose 14.0 ml/min Estimated GFR () 8.3 Estimated GFR (Non- 7.1 BUN/Creatinine Ratio 7.3 (10-20) Calcium Level 8.2 mg/dl (8.5-10.1) Random Vancomycin Level 15.3 mcg/ml Allergies Coded Allergies: No Known Allergies (Verified , 04/13/17) Medications Current Inpatient Medications Medications (Trade) Dose Ordered Sig/[place] Route Start Time Stop Time Status Last Admin Dose Admin Allopurinol (Zyloprim Tab) 100 mg QAM PO 05/29/17 09:00 06/28/17 08:59 06/03/17 08:34 100 MG Aspirin (Ecotrin Tab) 81 mg QAM PO 05/29/17 09:00 06/28/17 08:59 06/03/17 08:34 81 MG Bisacodyl (Dulcolax Tab) 5 mg DAILY PRN PO 05/29/17 09:00 06/28/17 08:59 Calcium Acetate (Phoslo Cap) 2,001 mg TIDM PRN PO 05/29/17 07:30 06/28/17 07:29 06/02/17 19:00 2,001 MG Calcium Acetate (Phoslo Cap) 2,668 mg TIDM PO 05/29/17 07:30 06/28/17 07:59 06/03/17 12:16 2,668 MG Gabapentin (Neurontin Cap) 100 mg QPM PO 05/28/17 21:00 06/27/17 20:59 06/02/17 21:32 100 MG Levothyroxine Sodium (Synthroid Tab) 50 mcg DAILYBB PO 05/29/17 06:00 06/28/17 06:59 06/03/17 06:06 50 MCG Polyethylene (Miralax Powder Packet) 17 gm QAM PO 05/29/17 09:00 06/28/17 08:59 Simvastatin (Zocor Tab) 40 mg QPM PO 05/28/17 21:00 06/27/17 20:59 06/02/17 21:32 40 MG Warfarin Sodium (Coumadin Tab) 5 mg HS PO 05/28/17 21:00 06/27/17 20:59 06/02/17 21:32 5 MG Miscellaneous Information (Consult Glycemic Management Pharmacy) 1 ea DAILY PRN N/A 05/28/17 22:27 06/27/17 22:26 Insulin Aspart (novoLOG ASPART) SLIDING SCALE PARAMETER ACHS SC 05/28/17 21:00 06/27/17 20:59 06/03/17 12:20 11 UNITS Acetaminophen (Tylenol Tab) 650 mg Q4H PRN PO 05/28/17 19:45 06/27/17 19:44 Al Hydrox/Mg Hydrox/Simethicone (Maalox Max Susp) 15 ml Q4H PRN PO 05/28/17 19:45 06/27/17 19:44 Ondansetron HCl (Zofran Inj) 4 mg Q6H PRN IV 05/28/17 19:45 06/27/17 19:44 Glucose (Glucose 40% Gel) 15-30 GRAMS 15 GRAMS... UD PRN PO 05/29/17 03:30 06/28/17 03:29 Glucose (Glucose Chew Tab) 4-8 Tablets 4 Tabl... UD PRN PO 05/29/17 03:30 06/28/17 03:29 Dextrose (Dextrose 50% 50ML Syringe) 25-50ML OF 50% DW IV FOR... UD PRN IV 05/29/17 03:30 06/28/17 03:29 Glucagon (Glucagon Inj) 1 mg UD PRN SQ 05/29/17 03:30 06/28/17 03:29 Insulin Glargine ([place] Solostar) 50 units DAILY SC 05/29/17 12:30 06/28/17 12:29 06/03/17 08:43 50 UNITS Miconazole Nitrate (Desenex Powder) 1 appln PRN PRN EXT 05/29/17 20:15 06/28/17 20:14 Cinacalcet (Sensipar) 45 mg HS PO 05/30/17 21:00 06/29/17 20:59 06/02/17 21:33 45 MG Loperamide HCl (Imodium Cap) 2 mg Q6H PRN PO 06/02/17 16:15 07/02/17 16:14 06/03/17 08:49 2 MG Doxycycline Hyclate (Vibramycin Cap) 100 mg BID PO 06/03/17 09:00 06/13/17 08:59 06/03/17 08:34 100 MG Sodium Chloride ([place] Nasal [place]) 2 sprays Q2H PRN NA 06/02/17 21:00 07/02/17 20:59 06/03/17 02:32 2 SPRAYS Impression (1) ESRD (end stage renal disease) on dialysis (2) Hyperkalemia (3) CONGESTIVE HEART FAILURE NOS (4) Edema (5) Atrial fibrillation with slow ventricular response (6) Peripheral vascular disease (7) Hypotension Mr. Cabrera was admitted to the hospital for evaluation of CHF, weakness and hyperkalemia. He has ESRD requiring MWF HD. Recommendations -- had hemodialysis yesterday, currently blood pressure, volume status and electrolyte acceptable, no indication for dialysis, will monitor over the weekend and plan for next dialysis Monday -- Will provide ESAU w/ HD today --Continue on Nephrocaps and phosphate binder with meal --continue on renal diet -- will try to get a larger recliner as patient requested -- social service working to discharge patient to rehab
[2017-06-03 14:53] VITALS: BP 87/42; PULSE 64; TEMP 36.6; O2SAT 98
[2017-06-03] MEDS: CALCIUM ACETATE 667MG GELCAP PO PRN (21:05)
[2017-06-03] MEDS: GABAPENTIN 100 MG CAP PO SCH (21:06)
[2017-06-03] MEDS: CINACALCET HCL 90 MG PO SCH (21:06)
[2017-06-03] MEDS: WARFARIN SOD 5 MG TAB PO SCH (21:07)
[2017-06-03] MEDS: SIMVASTATIN 40 MG TAB PO SCH (21:08)
[2017-06-03 23:06] VITALS: BP 88/52; PULSE 71; TEMP 36.8; O2SAT 98
--- NOTE | 2017-06-04 00:55 | Hospitalist Progress Note ---
Hospitalist Progress Note Date of Service Jun 03, 2017. Subjective Pt evaluation today including: conversation w/ patient patient feeling better Objective Vital Signs Date Time Temp Pulse Resp B/P (MAP) Pulse Ox O2 Delivery O2 Flow Rate FiO2 06/03/17 02:33 36.8 64 18 78/43 (55) 97 06/03/17 00:00 Nasal Cannula 4.0 06/02/17 16:21 36.0 75 20 80/48 (59) 99 Nasal Cannula 4.0 06/02/17 16:00 Nasal Cannula 3.0 06/02/17 14:22 36.4 65 85/62 (70) 06/02/17 13:45 63 78/63 06/02/17 13:30 65 88/39 06/02/17 13:15 59 96/46 06/02/17 13:00 64 96/50 06/02/17 12:45 62 76/37 06/02/17 12:30 60 67/35 06/02/17 12:15 60 74/32 06/02/17 12:00 60 67/34 06/02/17 11:45 68 74/37 06/02/17 11:30 69 86/44 06/02/17 11:15 61 73/42 06/02/17 11:00 64 82/46 06/02/17 10:45 62 81/47 06/02/17 10:30 61 82/48 06/02/17 10:15 60 92/46 06/02/17 10:00 63 78/41 06/02/17 09:45 60 87/44 06/02/17 09:24 67 86/48 06/02/17 09:20 36.6 65 84/43 (57) 06/02/17 08:00 100 Nasal Cannula 3.0 06/02/17 07:18 36.5 63 18 88/51 (63) 100 Nasal Cannula 3.0 Physical Exam General Appearance: no apparent distress ENT: hearing grossly normal Neck: trachea midline Respiratory/Chest: lungs clear Cardiovascular: regular rate, rhythm Abdomen: non tender Extremities: non-tender Laboratory Results Last 24 Hours Test 06/02/17 07:44 06/02/17 08:34 06/02/17 16:32 06/02/17 19:59 Bedside Glucose 140 mg/dl 187 mg/dl 195 mg/dl White Blood Count 7.57 K/uL Red Blood Count 3.44 M/uL Hemoglobin 9.9 g/dL Hematocrit 32.2 % Mean Corpuscular Volume 93.6 fL Mean Corpuscular Hemoglobin 28.8 pg Mean Corpuscular Hemoglobin Concent 30.7 g/dl Platelet Count 238 K/uL Mean Platelet Volume 10.1 fL Neutrophils (%) (Auto) 74.0 % Lymphocytes (%) (Auto) 13.3 % Monocytes (%) (Auto) 6.3 % Eosinophils (%) (Auto) 5.2 % Basophils (%) (Auto) 0.4 % Neutrophils # (Auto) 5.60 K/uL Lymphocytes # (Auto) 1.01 K/uL Monocytes # (Auto) 0.48 K/uL Eosinophils # (Auto) 0.39 K/uL Basophils # (Auto) 0.03 K/uL RDW Standard Deviation 63.2 fL RDW Coefficient of Variation 18.3 % Immature Granulocyte % (Auto) 0.8 % Immature Granulocyte # (Auto) 0.06 K/uL Prothrombin Time 24.2 SECONDS Prothromb Time International Ratio 2.2 Sodium Level 133 mmol/L Potassium Level 5.1 mmol/L Chloride Level 97 mmol/L Carbon Dioxide Level 25 mmol/L Anion Gap 11.0 mmol/L Blood Urea Nitrogen 81 mg/dl Creatinine 9.20 mg/dl Est Creatinine Clear Calc Drug Dose 10.6 ml/min Estimated GFR () 5.9 Estimated GFR (Non- 5.1 BUN/Creatinine Ratio 8.8 Random Glucose 181 mg/dl Calcium Level 8.3 mg/dl Assessment and Plan 72-year-old male end-stage renal disease diabetic who presents with a diabetic foot infection, previous finger osteomyelitis, acute on chronic diastolic heart failure 1. For the diabetic foot infection/finger infection vancomycin and Zosyn, wound care and will follow up with ID, recommending doxycycline, Pending transthoracic echo to evaluate for valvular vegetations, weakness is multifactorial and may require snf. Vanco and Zosyn are discontinued start doxy 2. diabetes pharmacy glycemic management team to adjust his long-acting insulin and insulin sliding scale 3. obesity hypoventilation syndrome/sleep apnea CPAP and the hospital supplied unit until his family can supply his own 4. end-stage renal disease and hyperkalemia will continue hemodialysis treatments, still with some volume overload, but lower bp limits 5. atrial fibrillation is rate controlled at this time he's anticoagulated with Coumadin and his INR is therapeutic Disposition working on rehab Discharge planning: uncertain
[2017-06-04] MEDS: LEVOTHYROXINE 50 MCG TAB PO SCH (06:38)
[2017-06-04 07:46] VITALS: BP 101/65; PULSE 66; TEMP 36.4; O2SAT 100
[2017-06-04] MEDS: ALLOPURINOL 100 MG TAB PO SCH (08:50)
[2017-06-04] MEDS: ASPIRIN 81 MG ECTAB PO SCH (08:50)
[2017-06-04] MEDS: DOXYCYCLINE HYCLATE 100 MG CAP PO SCH ×2 (08:50→21:19)
[2017-06-04] MEDS: CALCIUM ACETATE 667MG GELCAP PO SCH ×3 (08:51→17:25)
[2017-06-04] MEDS: POLYETHYLENE (MIRALAX) 17 GM PACK PO SCH (08:52)
[2017-06-04] MEDS: LOPERAMIDE HCL 2 MG CAP PO PRN (08:57)
[2017-06-04] MEDS: INSULIN ASPART 100 UNITS/ML 3 ML PEN SC SCH ×4 (08:58→21:00)
[2017-06-04] MEDS: INSULIN GLARGINE 300 UNIT/ML SC SCH (08:59)
--- NOTE | 2017-06-04 10:55 | Nephrology Progress Note ---
Nephrology Progress Note Date of Service Jun 04, 2017. Chief Complaint End-stage renal disease on hemodialysis. Adrian Fried was seen and examined in his room this morning. Overall he feels better and appetite OK. Still feels weak. He has been having difficulty sleeping at night as he usually sleeps in recliner and a large enough recliner for him is not available currently. had dialysis Monday, currently volume status electrolyte acceptable. Blood pressure relatively low, chronic, asymptomatic. Review of Systems A complete review of systems was performed. Pertinent positives are noted above. All other systems are negative. Vital Signs Last 8 Hrs Date Time Temp Pulse Resp B/P (MAP) Pulse Ox O2 Delivery O2 Flow Rate FiO2 06/04/17 08:00 Nasal Cannula 4.0 06/04/17 07:46 36.4 66 18 101/65 (77) 100 4.0 Last Recorded Weight Weight (Kilograms): 149.600 Physical Exam GENERAL: Elderly male,, AAA x 3, morbidly obese, not in any distress. NECK: Supple, no JVD. RESPIRATORY: Normal breathing efforts, no accessory muscle use, clear to auscultation bilaterally, no wheezes or rales. CARDIOVASCULAR: S1, S2 normal, rate rhythm regular. EXTREMITY: 1+ B/L lower extremity edema and lower extremity diabetic ulcer NEURO: speech fluent. PSYCHIATRY: Normal mood and judgment Family History Patient reports no known family medical history. Negative for CKD / ESRD Social History Smoking Status: Never smoker Drug Use: none Marital Status: Housing Status: lives with family Occupation: retired . Resides in [place], [place]. 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 Laboratory Results Past 24 Hours 06/03/17 20:50 Test 06/03/17 11:27 06/03/17 16:25 06/03/17 20:16 06/03/17 20:18 Bedside Glucose 255 mg/dl (70-99) 201 mg/dl (70-99) 159 mg/dl (70-99) 182 mg/dl (70-99) Test 06/04/17 07:31 Bedside Glucose 194 mg/dl (70-99) Allergies Coded Allergies: No Known Allergies (Verified , 04/13/17) Medications Current Inpatient Medications Medications (Trade) Dose Ordered Sig/[place] Route Start Time Stop Time Status Last Admin Dose Admin Allopurinol (Zyloprim Tab) 100 mg QAM PO 05/29/17 09:00 06/28/17 08:59 06/04/17 08:50 100 MG Aspirin (Ecotrin Tab) 81 mg QAM PO 05/29/17 09:00 06/28/17 08:59 06/04/17 08:50 81 MG Bisacodyl (Dulcolax Tab) 5 mg DAILY PRN PO 05/29/17 09:00 06/28/17 08:59 Calcium Acetate (Phoslo Cap) 2,001 mg TIDM PRN PO 05/29/17 07:30 06/28/17 07:29 06/03/17 21:05 2,001 MG Calcium Acetate (Phoslo Cap) 2,668 mg TIDM PO 05/29/17 07:30 06/28/17 07:59 06/04/17 08:51 2,668 MG Gabapentin (Neurontin Cap) 100 mg QPM PO 05/28/17 21:00 06/27/17 20:59 06/03/17 21:06 100 MG Levothyroxine Sodium (Synthroid Tab) 50 mcg DAILYBB PO 05/29/17 06:00 06/28/17 06:59 06/04/17 06:38 50 MCG Polyethylene (Miralax Powder Packet) 17 gm QAM PO 05/29/17 09:00 06/28/17 08:59 Simvastatin (Zocor Tab) 40 mg QPM PO 05/28/17 21:00 06/27/17 20:59 06/03/17 21:08 40 MG Warfarin Sodium (Coumadin Tab) 5 mg HS PO 05/28/17 21:00 06/27/17 20:59 06/03/17 21:07 5 MG Miscellaneous Information (Consult Glycemic Management Pharmacy) 1 ea DAILY PRN N/A 05/28/17 22:27 06/27/17 22:26 Insulin Aspart (novoLOG ASPART) SLIDING SCALE PARAMETER ACHS SC 05/28/17 21:00 06/27/17 20:59 06/04/17 08:58 10 UNITS Acetaminophen (Tylenol Tab) 650 mg Q4H PRN PO 05/28/17 19:45 06/27/17 19:44 Al Hydrox/Mg Hydrox/Simethicone (Maalox Max Susp) 15 ml Q4H PRN PO 05/28/17 19:45 06/27/17 19:44 Ondansetron HCl (Zofran Inj) 4 mg Q6H PRN IV 05/28/17 19:45 06/27/17 19:44 Glucose (Glucose 40% Gel) 15-30 GRAMS 15 GRAMS... UD PRN PO 05/29/17 03:30 06/28/17 03:29 Glucose (Glucose Chew Tab) 4-8 Tablets 4 Tabl... UD PRN PO 05/29/17 03:30 06/28/17 03:29 Dextrose (Dextrose 50% 50ML Syringe) 25-50ML OF 50% DW IV FOR... UD PRN IV 05/29/17 03:30 06/28/17 03:29 Glucagon (Glucagon Inj) 1 mg UD PRN SQ 05/29/17 03:30 06/28/17 03:29 Insulin Glargine (Toujeo Solostar) 50 units DAILY SC 05/29/17 12:30 06/28/17 12:29 06/04/17 08:59 50 UNITS Miconazole Nitrate (Desenex Powder) 1 appln PRN PRN EXT 05/29/17 20:15 06/28/17 20:14 Cinacalcet (Sensipar) 45 mg HS PO 05/30/17 21:00 06/29/17 20:59 06/03/17 21:06 45 MG Loperamide HCl (Imodium Cap) 2 mg Q6H PRN PO 06/02/17 16:15 07/02/17 16:14 06/04/17 08:57 2 MG Doxycycline Hyclate (Vibramycin Cap) 100 mg BID PO 06/03/17 09:00 06/13/17 08:59 06/04/17 08:50 100 MG Sodium Chloride ([place] Nasal Clarion) 2 sprays Q2H PRN NA 06/02/17 21:00 07/02/17 20:59 06/03/17 02:32 2 SPRAYS Impression (1) ESRD (end stage renal disease) on dialysis (2) Hyperkalemia (3) CONGESTIVE HEART FAILURE NOS (4) Edema (5) Atrial fibrillation with slow ventricular response (6) Peripheral vascular disease (7) Hypotension Mr. Cabrera was admitted to the hospital for evaluation of CHF, weakness and hyperkalemia. He has ESRD requiring MWF HD. Recommendations -- currently blood pressure, volume status and electrolyte acceptable, no indication for dialysis, will monitor over the weekend and plan for dialysis tomorrow. --Continue on Nephrocaps and phosphate binder with meal --continue on renal diet -- waiting PT and possible discharge to rehab
[2017-06-04 16:09] VITALS: BP 100/62; PULSE 66; O2SAT 100
[2017-06-04] MEDS: SIMVASTATIN 40 MG TAB PO SCH (21:19)
[2017-06-04] MEDS: GABAPENTIN 100 MG CAP PO SCH (21:20)
[2017-06-04] MEDS: WARFARIN SOD 5 MG TAB PO SCH (21:21)
[2017-06-04] MEDS: CINACALCET HCL 90 MG PO SCH (21:21)
[2017-06-04 23:46] VITALS: BP 89/51; PULSE 64; TEMP 36.6; O2SAT 98
[2017-06-05] VITALS (23 sets, daily range): BP systolic 64–105; BP diastolic 39–64; PULSE 55–67; TEMP 36.4–37; O2SAT 97–100
--- NOTE | 2017-06-05 01:27 | Hospitalist Progress Note ---
Hospitalist Progress Note Date of Service Jun 04, 2017. Subjective Pt evaluation today including: conversation w/ patient Patient with no complaints no diarrhea Objective Vital Signs Date Time Temp Pulse Resp B/P (MAP) Pulse Ox O2 Delivery O2 Flow Rate FiO2 06/03/17 23:06 36.8 71 18 88/52 (64) 98 Nasal Cannula 3.0 06/03/17 16:00 Nasal Cannula 4.0 06/03/17 14:53 36.6 64 16 87/42 (57) 98 Room Air 06/03/17 08:00 Nasal Cannula 4.0 06/03/17 07:02 36.6 67 18 72/43 (53) 99 Nasal Cannula 3.0 06/03/17 02:33 36.8 64 18 78/43 (55) 97 Physical Exam Eyes: normal inspection ENT: hearing grossly normal Neck: supple, trachea midline Respiratory/Chest: chest non-tender, lungs clear Cardiovascular: regular rate, rhythm Abdomen: normal bowel sounds, non tender Laboratory Results Last 24 Hours Test 06/03/17 05:25 06/03/17 07:23 06/03/17 11:27 06/03/17 16:25 White Blood Count 8.67 K/uL Red Blood Count 3.46 M/uL Hemoglobin 10.1 g/dL Hematocrit 32.3 % Mean Corpuscular Volume 93.4 fL Mean Corpuscular Hemoglobin 29.2 pg Mean Corpuscular Hemoglobin Concent 31.3 g/dl Platelet Count 255 K/uL Mean Platelet Volume 10.2 fL Neutrophils (%) (Auto) 72.1 % Lymphocytes (%) (Auto) 13.8 % Monocytes (%) (Auto) 8.0 % Eosinophils (%) (Auto) 4.4 % Basophils (%) (Auto) 0.3 % Neutrophils # (Auto) 6.25 K/uL Lymphocytes # (Auto) 1.20 K/uL Monocytes # (Auto) 0.69 K/uL Eosinophils # (Auto) 0.38 K/uL Basophils # (Auto) 0.03 K/uL RDW Standard Deviation 61.7 fL RDW Coefficient of Variation 18.2 % Immature Granulocyte % (Auto) 1.4 % Immature Granulocyte # (Auto) 0.12 K/uL Nucleated RBC Absolute Count (auto) 0.02 K/uL Nucleated Red Blood Cells % 0.2 % Prothrombin Time 22.8 SECONDS Prothromb Time International Ratio 2.1 Sodium Level 136 mmol/L Potassium Level 4.4 mmol/L Chloride Level 97 mmol/L Carbon Dioxide Level 30 mmol/L Anion Gap 9.0 mmol/L Blood Urea Nitrogen 51 mg/dl Creatinine 7.00 mg/dl Est Creatinine Clear Calc Drug Dose 14.0 ml/min Estimated GFR () 8.3 Estimated GFR (Non- 7.1 BUN/Creatinine Ratio 7.3 Random Glucose 188 mg/dl Calcium Level 8.2 mg/dl Random Vancomycin Level 15.3 mcg/ml Bedside Glucose 173 mg/dl 255 mg/dl 201 mg/dl Test 06/03/17 20:16 06/03/17 20:18 06/03/17 20:50 Bedside Glucose 159 mg/dl 182 mg/dl Random Glucose 165 mg/dl Assessment and Plan 72-year-old male end-stage renal disease diabetic who presents with a diabetic foot infection, previous finger osteomyelitis, acute on chronic diastolic heart failure 1. For the diabetic foot infection/finger infection vancomycin and Zosyn, wound care and will follow up with ID, recommending doxycycline, Pending transthoracic echo to evaluate for valvular vegetations, weakness is multifactorial and may require snf. Vanco and Zosyn discontinued doxycycline started. 2. diabetes pharmacy glycemic management team to adjust his long-acting insulin and insulin sliding scale 3. obesity hypoventilation syndrome/sleep apnea CPAP and the hospital supplied unit until his family can supply his own 4. end-stage renal disease and hyperkalemia will continue hemodialysis treatments, still with some volume overload, but lower bp limits 5. atrial fibrillation is rate controlled at this time he's anticoagulated with Coumadin and his INR is therapeutic Disposition working on rehab Discharge planning: uncertain
[2017-06-05] MEDS: LEVOTHYROXINE 50 MCG TAB PO SCH (06:34)
[2017-06-05 07:21] LABS: HEMATOCRIT 34.6 % (42-52); MEAN CELL VOLUME 93.8 fL (80-100); MEAN CORPUSCULAR HEMOGLOBIN 27.6 pg (25-34); MEAN CORPUSCULAR HGB CONC 29.5 g/dl (32-36); MEAN PLATELET VOLUME 9.7 fL (7.4-10.4); PLATELET COUNT 298 K/uL (130-400); RED BLOOD COUNT 3.69 M/uL (4.7-6.1)
[2017-06-05] MEDS: POLYETHYLENE (MIRALAX) 17 GM PACK PO SCH (07:52)
[2017-06-05] MEDS: ALLOPURINOL 100 MG TAB PO SCH (07:53)
[2017-06-05] MEDS: ASPIRIN 81 MG ECTAB PO SCH (07:53)
[2017-06-05] MEDS: DOXYCYCLINE HYCLATE 100 MG CAP PO SCH ×2 (07:53→21:27)
[2017-06-05] MEDS: CALCIUM ACETATE 667MG GELCAP PO SCH ×3 (07:54→17:29)
[2017-06-05] MEDS: INSULIN GLARGINE 300 UNIT/ML SC SCH (07:58)
[2017-06-05] MEDS: INSULIN ASPART 100 UNITS/ML 3 ML PEN SC SCH ×4 (07:58→21:27)
--- NOTE | 2017-06-05 10:50 | NEPHROLOGY PROGRESS NOTE ---
DATE: 06/05/2017 SUBJECTIVE: Mr. Cabrera says that he is feeling "better." He denies having any abdominal pain, nausea or vomiting. He has had no shaking chills or fevers. He does not feel unusually short of breath. He has had no chest pain. He was seen shortly after the initiation of dialysis this morning. He has had no symptoms of uremia or volume overload and he has tolerated his dialysis treatments quite well. No specific placement decisions have been made. Apparently to date indications are he will not be accepted at [facility]. He has gotten limited physical therapy and occupational therapy here. OBJECTIVE: GENERAL: On physical exam when seen Mr. Cabrera appeared somewhat better. He was resting comfortably and did not appear to be short of breath or in any other distress. VITAL SIGNS: He is afebrile (36.6), his blood pressure was 84/60, his pulse is 62 and slightly irregular, respiratory rate 18, and his pulse ox is 100% on 3 liters of oxygen via nasal cannula. SKIN: Shows essentially normal skin turgor. He has changes of venous stasis dermatitis involving his lower extremities. There is no evidence of lymphangitis. Skin turgor is normal. He has scars from prior surgical procedures, most notably a pacemaker beneath the distal left clavicle and scars in the right antecubital fossa and over the right upper arm from the creation of his AV fistula and multiple dialysis needle track henry. LYMPHATICS: Show no palpable lymphadenopathy. HEAD: Normal. EYES: Grossly normal. The ocular fundi were not examined. EARS, NOSE, MOUTH AND THROAT: Unremarkable. Oral mucous membranes are moist. NECK: Supple. I see no jugular venous distention, but the exam is limited by his body habitus. There is no carotid bruit and no thyromegaly. CHEST: Shows diminished breath sounds throughout, especially at the bases. The diaphragms are elevated related to his body habitus. I hear no wheezes, rales or rhonchi. He has a pacemaker palpable beneath the distal left clavicle. CARDIAC: Shows a slightly irregular rhythm with a controlled rate. He has a grade 3/6 systolic murmur at the base radiating toward the neck. No diastolic murmurs are heard. ABDOMEN: Morbidly obese. There is no abdominal tenderness and no obvious organomegaly or mass, but again the exam is limited by his body habitus. EXTREMITIES: Show 1-2+ lower extremity edema and he has changes of venous stasis dermatitis. His right leg is wrapped and was not undressed. Femoral pulses are difficult to feel. I do not feel pedal pulses. He has good tissue perfusion in his distal lower extremities, however, with normal capillary refill. NEUROLOGIC: Shows no lateralizing changes. PERTINENT LABORATORY WORK: From today shows a white count of 9000. His hemoglobin 10.2, hematocrit 34.6, and his platelet count 298,000. His clinical chemistries are limited to a blood sugar this morning of 182. ASSESSMENT: Mr. Cabrera remains stable. Decisions have not been made with regard to his placement. From the renal perspective, he is stable and could be managed as an outpatient. However, the degree of his rehabilitation if possible remains in question. PLAN: At minimum, I think he should continue to receive physical and occupational therapy here to assess what his needs may be and plan for any home physical therapy. No other change in his dialysis treatments, diet or medications.
--- NOTE | 2017-06-05 19:38 | Progress Note ---
Subjective Date of Service: Jun 05, 2017. Subjective Pt evaluation today including: conversation w/ patient, physical exam, chart review, lab review, review of inpatient medication list Problem List Medical Problems: (1) Ambulatory dysfunction Status: Acute (2) End stage renal disease Status: Acute (3) Failure of outpatient treatment Status: Acute (4) Febrile illness Status: Acute (5) Hyperkalemia Status: Acute (6) Infection of right foot Status: Acute (7) Infection of right hand Status: Acute (8) Leukocytosis Status: Acute (9) Superficial injury of right index finger with infection Status: Acute (10) Ulcers of both lower extremities Status: Acute Review of Systems Constitutional: No see HPI, No fever, No chills, No sweats, No weight loss, No weakness, No fatigue, No problem reported Eyes: No see HPI, No worsening of vision, No eye pain, No redness, No discharge , No diplopia, No problem reported ENT: No see HPI, No hearing loss, No unusual epistaxis, No nasal symptoms, No sore throat, No tinnitus, No dental problems, No trouble swallowing, No problem reported Respiratory: No see HPI, No cough, No sputum, No wheezing, No shortness of breath, No dyspnea on exertion, No dyspnea at rest, No hemoptysis, No problem reported Cardiac: No see HPI, No chest pain, No orthopnea, No PND, No edema, No claudication, No palpitations, No problem reported Abdomen: No see HPI, No pain, No nausea, No vomiting, No diarrhea, No constipation, No GI bleeding, No problem reported Musculoskeletal: + joint pain, No see HPI, No muscle pain, No swelling, No calf pain, No problem reported Neurologic: No see HPI, No memory loss, No paralysis, No weakness, No numbness/ tingling, No vertigo, No balance problems, No problem reported Psychiatric: No see HPI, No depression symptoms, No anhedonism, No anxiety, No insomnia, No substance abuse, No problem reported Heme: No see HPI, No abnormal bleeding/bruising, No clotting problems, No swollen lymph nodes, No night sweats, No problem reported Endo: No see HPI, No fatigue, No excessive thirst, No excessive urination, No problem reported Skin: + rash, No see HPI, No itch, No new/changing skin lesions, No color change, No bleeding, No problem reported Objective Vital Signs Date Time Temp Pulse Resp B/P (MAP) Pulse Ox O2 Delivery O2 Flow Rate FiO2 06/05/17 16:46 36.4 66 18 105/62 (76) 97 4.0 06/05/17 13:45 36.5 67 88/40 (56) 06/05/17 13:00 60 64/45 06/05/17 12:45 61 81/40 06/05/17 12:30 55 102/39 06/05/17 12:15 60 78/45 06/05/17 12:00 67 90/46 06/05/17 11:45 61 76/48 06/05/17 11:30 60 95/45 06/05/17 11:15 64 85/45 06/05/17 11:00 60 101/51 06/05/17 10:45 61 83/44 06/05/17 10:30 60 86/43 06/05/17 10:15 60 83/41 06/05/17 10:00 62 84/60 06/05/17 09:45 61 80/44 06/05/17 09:30 61 92/49 06/05/17 09:17 65 94/44 06/05/17 09:00 36.9 66 90/41 (57) 06/05/17 08:10 Nasal Cannula 4.0 06/05/17 07:51 36.6 59 18 102/60 (74) 100 3.0 06/05/17 00:00 98 Nasal Cannula 4.0 06/04/17 23:46 36.6 64 16 89/51 (64) 98 Nasal Cannula 4.0 Physical Exam General Appearance: WD/WN, no apparent distress, + obese Eyes: normal inspection, PERRL ENT: normal ENT inspection, hearing grossly normal, TMs normal Neck: supple, no adenopathy, thyroid normal, no JVD Respiratory/Chest: chest non-tender, lungs clear, normal breath sounds, no respiratory distress, no accessory muscle use Cardiovascular: regular rate, rhythm, no edema, no gallop, no JVD, no murmur Abdomen: normal bowel sounds, non tender, soft, no organomegaly Extremities: normal range of motion, + pertinent finding (left foot has severe tinea pedis plus superficial ulcer on chin , right was tightly wrapped) Neurologic/Psychiatric: 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, no motor/sensory deficits, alert, normal mood/affect, oriented x 3 Skin: normal color, warm/dry Laboratory Results Last 24 Hours Test 06/04/17 20:12 06/05/17 07:00 06/05/17 07:24 06/05/17 14:15 Bedside Glucose 159 mg/dl 182 mg/dl 146 mg/dl White Blood Count 9.00 K/uL Red Blood Count 3.69 M/uL Hemoglobin 10.2 g/dL Hematocrit 34.6 % Mean Corpuscular Volume 93.8 fL Mean Corpuscular Hemoglobin 27.6 pg Mean Corpuscular Hemoglobin Concent 29.5 g/dl RDW Standard Deviation 61.7 fL RDW Coefficient of Variation 18.3 % Platelet Count 298 K/uL Mean Platelet Volume 9.7 fL Test 06/05/17 16:27 Bedside Glucose 192 mg/dl Assessment and Plan 72-year-old male end-stage renal disease diabetic who presents with a diabetic foot infection and acute on chronic diastolic heart failure previous wound Cx on 05/23 grew up MRSA Diabetic foot infection/finger infection S/P vancomycin and Zosyn currently on doxycycline , wound care and follow up with ID, will Discuss tomorrow with Dr. García all options started fluconazole oral for severe tinea pedis Xray left foot R foot xray showed no osteo diabetes continue insulin sliding scale obesity hypoventilation syndrome/sleep apnea CPAP and the hospital supplied unit until his family can supply his own end-stage renal disease/ continue hemodialysis as per field sales representative atrial fibrillation is rate controlled at this time he's anticoagulated with Coumadin and his INR is therapeutic, will check in am Disposition working on rehab Continued [facility] stay due to: multiple IV medications needed Discharge planning: uncertain
[2017-06-05] MEDS: CALCIUM ACETATE 667MG GELCAP PO PRN (19:52)
[2017-06-05] MEDS: FLUCONAZOLE 100 MG TAB PO SCH (21:16)
[2017-06-05] MEDS: CINACALCET HCL 90 MG PO SCH (21:17)
[2017-06-05] MEDS: WARFARIN SOD 5 MG TAB PO SCH (21:18)
[2017-06-05] MEDS: SIMVASTATIN 40 MG TAB PO SCH (21:28)
[2017-06-05] MEDS: GABAPENTIN 100 MG CAP PO SCH (22:10)
[2017-06-06] MEDS: LEVOTHYROXINE 50 MCG TAB PO SCH (05:01)
[2017-06-06 07:46] LABS: BASO % 0.4 %; BASO ABS # 0.03 K/uL (0-0.2); COMPLETE YES; EOS % 3.6 %; HEMATOCRIT 32.3 % (42-52); IG% 1.2 %; LYMPH % 17.2 %; LYMPH ABS # 1.34 K/uL (1.2-3.4); MEAN CORPUSCULAR HEMOGLOBIN 28.8 pg (25-34); MEAN CORPUSCULAR HGB CONC 30.3 g/dl (32-36); MEAN PLATELET VOLUME 9.8 fL (7.4-10.4); MONO % 7.9 %; NEUT % 69.7 %; PLATELET COUNT 296 K/uL (130-400); WHITE BLOOD COUNT 7.81 K/uL (4.8-10.8)
[2017-06-06 08:12] VITALS: BP 92/55; PULSE 68; TEMP 36.7; O2SAT 98
[2017-06-06 08:27] LABS: ALB/GLOB RATIO 0.7 (0.9-2); BUN/CREATININE RATIO 7.1 (10-20); CALCIUM 8.5 mg/dl (8.5-10.1); CREATININE 8.7 mg/dl (0.60-1.40); MAGNESIUM 2.3 mg/dl (1.8-2.4); PHOSPHORUS 5.8 mg/dl (2.5-4.9); POTASSIUM 4.8 mmol/L (3.5-5.1)
[2017-06-06] MEDS: CALCIUM ACETATE 667MG GELCAP PO SCH ×3 (08:28→18:51)
[2017-06-06] MEDS: POLYETHYLENE (MIRALAX) 17 GM PACK PO SCH (09:00)
[2017-06-06] MEDS: FLUCONAZOLE 100 MG TAB PO SCH (09:09)
[2017-06-06] MEDS: DOXYCYCLINE HYCLATE 100 MG CAP PO SCH ×2 (09:09→22:12)
[2017-06-06] MEDS: ASPIRIN 81 MG ECTAB PO SCH (09:09)
[2017-06-06] MEDS: ALLOPURINOL 100 MG TAB PO SCH (09:09)
[2017-06-06] MEDS: INSULIN ASPART 100 UNITS/ML 3 ML PEN SC SCH ×4 (09:13→22:17)
[2017-06-06] MEDS: INSULIN GLARGINE 300 UNIT/ML SC SCH (09:14)
--- NOTE | 2017-06-06 10:01 | DIAGNOSTIC IMAGING REPORT ---
LEFT FOOT MIN 3 VIEWS ROUTINE CLINICAL HISTORY: 72 years-old Male presenting with LT FOOT INFECTION, diabetic, hypoxia. TECHNIQUE: Frontal, oblique, and lateral views of the left foot were obtained. COMPARISON: Comparison made to plain radiographs of the right foot from 05/28/2017 and radiographs of the left foot from 12/17/2015. FINDINGS: Osteopenia and atherosclerosis noted. Interval evolution of previously noted deformities of the necks of the second through fifth metatarsals, consistent with healed fractures. The previously noted lucency through the base of the distal phalanx of the first toe is no longer present, likely also consistent with healed fracture. There is better visualization of the phalanges of the fifth toe. Mild degenerative change noted at the first metatarsophalangeal joint and interphalangeal joint of the first toe. No displaced fracture or subluxation. No gross osseous erosion to suggest radiographic evidence of osteomyelitis. Diffuse soft tissue swelling. Extensive calcification along the Achilles tendon. IMPRESSION: No acute osseous injury allowing for osteopenia, which limits evaluation for nondisplaced fracture. Evidence of old healed fractures of the necks of the second through fifth metatarsals and distal phalanx of the first toe. Degenerative changes as above. No radiographic evidence of osseous erosion to suggest osteomyelitis. If there is continuing clinical concern, MRI should be obtained. Electronically signed by: Sarthak Elizabeth M.D. 06/06/2017 10:00 AM Dictated Date/Time: 06/06/2017 9:56 AM
[2017-06-06] MEDS ORDERED: SODIUM CHLORIDE 0.9% 1000ML 1,000 ML IV PRN (11:30)
--- NOTE | 2017-06-06 12:16 | PROGRESS NOTE ---
DATE: 06/06/2017 SUBJECTIVE: Mr. Cabrera says that he is feeling relatively well. He denies having any shaking chills or fevers. He has no nausea or vomiting. There is no chest pain or shortness of breath. He has no pain in his lower extremities. He tolerated his dialysis treatment yesterday. Apparently, placement issues remain. He has heard that he was not accepted at [facility]. Last evening I spoke with Dr. Hall. Apparently the reason that he was initially not accepted had to do with his participation with physical therapy while he was there. I asked Dr. Hall to reconsider if we strongly encourage Mr. Cabrera to participate and his transfer would be dependent on that participation. Apparently Dr. Hall is reconsidering his decision. OBJECTIVE: GENERAL: On physical exam at the current time, Mr. Cabrera appears relatively well. He was sitting in his wheelchair. VITAL SIGNS: He is afebrile (36.7), his blood pressure 92/55, his pulse was 60 and regular, respiratory rate 19, his pulse ox 98% on 4 liters of oxygen via nasal cannula. SKIN: Shows normal skin turgor. He has obvious changes of venous stasis dermatitis involving his lower extremities. There are scars from prior surgical procedures, most notably a pacemaker beneath his distal left clavicle and scars in the right antecubital fossa from the creation of his right upper arm AV fistula. There are multiple dialysis needle tract henry over the fistula. LYMPHATICS: Show no evidence of lymphangitis or lymphadenopathy. HEAD: Normal. EYES: Grossly normal. The ocular fundi were not examined. EARS, NOSE, MOUTH AND THROAT: Unremarkable. Oral mucous membranes are moist. NECK: Supple. He has no jugular venous distention or carotid bruit. There is no thyromegaly. CHEST: Shows diminished breath sounds throughout, especially at the bases. However, I hear no wheezes, rales or rhonchi. He has a palpable pacemaker beneath the distal left clavicle. CARDIAC: Shows a regular rhythm (? paced) at a rate of 60. There is a grade 3/6 systolic murmur at the base, radiating toward the neck. No diastolic murmurs are heard. He has no gallops or rubs. ABDOMEN: Morbidly obese. There is no obvious abdominal tenderness. There is no organomegaly or mass. The exam is limited by his body habitus. EXTREMITIES: Show 1-2+ lower extremity edema which is fairly firm. He has the changes of venous stasis dermatitis. His right leg and specifically his heel was wrapped and was not undressed. Femoral pulses are difficult to feel, I cannot feel pedal pulses. However, his tissue perfusion appears to be reasonably normal, based on capillary refill which is normal. PERTINENT LABORATORY WORK: From today shows a white count of 7810 with a normal differential. His hemoglobin is 9.8, his hematocrit 32.3, platelet count 296,000. Clinical chemistries from today show a sodium of 135 mmol/L, potassium 4.8 mmol/L, chloride is 95 mmol/L and CO2 content 29 mmol/L. His BUN is 62, creatinine 8.7. Blood sugars vary from 149-288. The serum calcium is 8.5, his phosphate 5.8. His magnesium 2.3. His total protein 7.1. His albumin is 3.0. His foot x-ray done earlier today shows no evidence of osseous injury. There is no evidence of an osteomyelitis. ASSESSMENT: Mr. Cabrera remains stable. At this point, placement is an issue. Whether or not he can safely return home is open to some question. Clearly, he might benefit from additional physical therapy and Dr. Hall is reconsidering a decision as to whether or not to accept him at [facility]. PLAN: No change. We will schedule hemodialysis here for tomorrow. I discussed with Mr. Cabrera his participation with PT if he is accepted at [facility]. I told him that his acceptance and ability to stay at [facility] would depend on his participation. He does mention that he does feel weak if dialysis treatments are done before physical therapy and hopefully we can make arrangements, so that that will not be the case if he is ultimately accepted at [facility]. If not accepted at [facility], we will have to make whatever arrangements possible for him to return home.
--- NOTE | 2017-06-06 14:36 | Progress Note ---
Subjective Date of Service: Jun 06, 2017. Subjective pt placed on doxy, fluconazole. remains afebrile. wbc nml. conitnues with dressing change, new ulcer on left foot, new culture obtained today, results pending. tolerating abx. Problem List Medical Problems: (1) Ambulatory dysfunction Status: Acute (2) End stage renal disease Status: Acute (3) Failure of outpatient treatment Status: Acute (4) Febrile illness Status: Acute (5) Hyperkalemia Status: Acute (6) Infection of right foot Status: Acute (7) Infection of right hand Status: Acute (8) Leukocytosis Status: Acute (9) Superficial injury of right index finger with infection Status: Acute (10) Ulcers of both lower extremities Status: Acute Objective Vital Signs Date Time Temp Pulse Resp B/P (MAP) Pulse Ox O2 Delivery O2 Flow Rate FiO2 06/06/17 08:30 Nasal Cannula 4.0 06/06/17 08:12 36.7 68 19 92/55 (67) 98 Humidified Oxygen 4.0 06/06/17 00:00 Nasal Cannula 4.0 06/05/17 23:33 37.0 20 99/64 (76) 98 Nasal Cannula 4.0 06/05/17 16:46 36.4 66 18 105/62 (76) 97 4.0 06/05/17 16:00 100 Nasal Cannula 4.0 Laboratory Results Item Value Date Time Blood Culture - Preliminary Resulted 05/28/17 1644 Blood NO GROWTH TO DATE. Blood Culture - Preliminary Resulted 05/28/17 1651 Blood NO GROWTH TO DATE. Blood Culture - Final Complete 05/28/17 1651 Blood NO GROWTH Blood Culture - Final Complete 05/28/17 1644 Blood NO GROWTH Last 24 Hours Test 06/05/17 16:27 06/05/17 19:56 06/05/17 21:16 06/06/17 07:22 Bedside Glucose 192 mg/dl 288 mg/dl 205 mg/dl White Blood Count 7.81 K/uL Red Blood Count 3.40 M/uL Hemoglobin 9.8 g/dL Hematocrit 32.3 % Mean Corpuscular Volume 95.0 fL Mean Corpuscular Hemoglobin 28.8 pg Mean Corpuscular Hemoglobin Concent 30.3 g/dl Platelet Count 296 K/uL Mean Platelet Volume 9.8 fL Neutrophils (%) (Auto) 69.7 % Lymphocytes (%) (Auto) 17.2 % Monocytes (%) (Auto) 7.9 % Eosinophils (%) (Auto) 3.6 % Basophils (%) (Auto) 0.4 % Neutrophils # (Auto) 5.45 K/uL Lymphocytes # (Auto) 1.34 K/uL Monocytes # (Auto) 0.62 K/uL Eosinophils # (Auto) 0.28 K/uL Basophils # (Auto) 0.03 K/uL RDW Standard Deviation 63.6 fL RDW Coefficient of Variation 18.6 % Immature Granulocyte % (Auto) 1.2 % Immature Granulocyte # (Auto) 0.09 K/uL Sodium Level 135 mmol/L Potassium Level 4.8 mmol/L Chloride Level 95 mmol/L Carbon Dioxide Level 29 mmol/L Anion Gap 11.0 mmol/L Blood Urea Nitrogen 62 mg/dl Creatinine 8.70 mg/dl Est Creatinine Clear Calc Drug Dose 11.2 ml/min Estimated GFR () 6.3 Estimated GFR (Non- 5.5 BUN/Creatinine Ratio 7.1 Random Glucose 149 mg/dl Calcium Level 8.5 mg/dl Phosphorus Level 5.8 mg/dl Magnesium Level 2.3 mg/dl Total Bilirubin 0.3 mg/dl Aspartate Amino Transf (AST/SGOT) 11 U/L Alanine Aminotransferase (ALT/SGPT) 53 U/L Alkaline Phosphatase 104 U/L Total Protein 7.1 gm/dl Albumin 3.0 gm/dl Globulin 4.1 gm/dl Albumin/Globulin Ratio 0.7 Test 06/06/17 07:37 06/06/17 11:28 Bedside Glucose 153 mg/dl 188 mg/dl Assessment and Plan (1) Cellulitis Assessment & Plan: follow cultures, adjust as necessary Continued [facility] stay due to: multiple IV medications needed Discharge planning: uncertain
[2017-06-06 15:53] VITALS: BP 118/66; PULSE 60; TEMP 36.4; O2SAT 99
--- NOTE | 2017-06-06 20:10 | Progress Note ---
Subjective Date of Service: Jun 06, 2017. Subjective Pt evaluation today including: conversation w/ patient, physical exam, chart review, lab review, review of studies, conversation w/ business solutions consultant, review of inpatient medication list Problem List Medical Problems: (1) Ambulatory dysfunction Status: Acute (2) End stage renal disease Status: Acute (3) Failure of outpatient treatment Status: Acute (4) Febrile illness Status: Acute (5) Hyperkalemia Status: Acute (6) Infection of right foot Status: Acute (7) Infection of right hand Status: Acute (8) Leukocytosis Status: Acute (9) Superficial injury of right index finger with infection Status: Acute (10) Ulcers of both lower extremities Status: Acute Review of Systems Constitutional: No see HPI, No fever, No chills, No sweats, No weight loss, No weakness, No fatigue, No problem reported Eyes: No see HPI, No worsening of vision, No eye pain, No redness, No discharge , No diplopia, No problem reported ENT: No see HPI, No hearing loss, No unusual epistaxis, No nasal symptoms, No sore throat, No tinnitus, No dental problems, No trouble swallowing, No problem reported Respiratory: No see HPI, No cough, No sputum, No wheezing, No shortness of breath, No dyspnea on exertion, No dyspnea at rest, No hemoptysis, No problem reported Cardiac: No see HPI, No chest pain, No orthopnea, No PND, No edema, No claudication, No palpitations, No problem reported Abdomen: No see HPI, No pain, No nausea, No vomiting, No diarrhea, No constipation, No GI bleeding, No problem reported Musculoskeletal: + joint pain, + swelling Male : No see HPI, No dysuria, No urinary frequency, No incontinence, No nocturia more than once/night, No slowing stream, No hematuria, No sexual dysfunction, No problem reported Neurologic: No see HPI, No memory loss, No paralysis, No weakness, No numbness/ tingling, No vertigo, No balance problems, No problem reported Psychiatric: No see HPI, No depression symptoms, No anhedonism, No anxiety, No insomnia, No substance abuse, No problem reported Heme: No see HPI, No abnormal bleeding/bruising, No clotting problems, No swollen lymph nodes, No night sweats, No problem reported Endo: No see HPI, No fatigue, No excessive thirst, No excessive urination, No problem reported Skin: + rash, No see HPI, No itch, No new/changing skin lesions, No color change, No bleeding, No problem reported Objective Vital Signs Date Time Temp Pulse Resp B/P (MAP) Pulse Ox O2 Delivery O2 Flow Rate FiO2 06/06/17 15:53 36.4 60 20 118/66 (83) 99 Nasal Cannula 4.0 06/06/17 08:30 Nasal Cannula 4.0 06/06/17 08:12 36.7 68 19 92/55 (67) 98 Humidified Oxygen 4.0 06/06/17 00:00 Nasal Cannula 4.0 06/05/17 23:33 37.0 20 99/64 (76) 98 Nasal Cannula 4.0 Physical Exam General Appearance: no apparent distress, + obese Eyes: normal inspection, EOMI ENT: normal ENT inspection, hearing grossly normal Neck: supple Respiratory/Chest: chest non-tender, lungs clear, normal breath sounds, no respiratory distress, no accessory muscle use Cardiovascular: regular rate, rhythm, no edema, no gallop, no JVD, no murmur Abdomen: normal bowel sounds, non tender, soft, no organomegaly, no pulsatile mass Extremities: normal range of motion, + inflammation, + swelling, + pertinent finding (new ulcer on the dorsum of left foot) Neurologic/Psychiatric: digital forensics examiner II-XII nml as tested, no motor/sensory deficits, alert, normal mood/affect, oriented x 3 Skin: normal color, warm/dry, no rash Laboratory Results Last 24 Hours Test 06/05/17 21:16 06/06/17 07:22 06/06/17 07:37 06/06/17 11:28 Bedside Glucose 205 mg/dl 153 mg/dl 188 mg/dl White Blood Count 7.81 K/uL Red Blood Count 3.40 M/uL Hemoglobin 9.8 g/dL Hematocrit 32.3 % Mean Corpuscular Volume 95.0 fL Mean Corpuscular Hemoglobin 28.8 pg Mean Corpuscular Hemoglobin Concent 30.3 g/dl Platelet Count 296 K/uL Mean Platelet Volume 9.8 fL Neutrophils (%) (Auto) 69.7 % Lymphocytes (%) (Auto) 17.2 % Monocytes (%) (Auto) 7.9 % Eosinophils (%) (Auto) 3.6 % Basophils (%) (Auto) 0.4 % Neutrophils # (Auto) 5.45 K/uL Lymphocytes # (Auto) 1.34 K/uL Monocytes # (Auto) 0.62 K/uL Eosinophils # (Auto) 0.28 K/uL Basophils # (Auto) 0.03 K/uL RDW Standard Deviation 63.6 fL RDW Coefficient of Variation 18.6 % Immature Granulocyte % (Auto) 1.2 % Immature Granulocyte # (Auto) 0.09 K/uL Sodium Level 135 mmol/L Potassium Level 4.8 mmol/L Chloride Level 95 mmol/L Carbon Dioxide Level 29 mmol/L Anion Gap 11.0 mmol/L Blood Urea Nitrogen 62 mg/dl Creatinine 8.70 mg/dl Est Creatinine Clear Calc Drug Dose 11.2 ml/min Estimated GFR () 6.3 Estimated GFR (Non- 5.5 BUN/Creatinine Ratio 7.1 Random Glucose 149 mg/dl Calcium Level 8.5 mg/dl Phosphorus Level 5.8 mg/dl Magnesium Level 2.3 mg/dl Total Bilirubin 0.3 mg/dl Aspartate Amino Transf (AST/SGOT) 11 U/L Alanine Aminotransferase (ALT/SGPT) 53 U/L Alkaline Phosphatase 104 U/L Total Protein 7.1 gm/dl Albumin 3.0 gm/dl Globulin 4.1 gm/dl Albumin/Globulin Ratio 0.7 Test 06/06/17 16:05 Bedside Glucose 168 mg/dl Assessment and Plan 72-year-old male end-stage renal disease diabetic who presents with a diabetic foot infection and acute on chronic diastolic heart failure previous wound Cx on 05/23 grew up MRSA Diabetic foot infection/finger infection S/P vancomycin and Zosyn currently on doxycycline , wound care and follow up with Dr. García started fluconazole oral for severe tinea pedis 06/05 Xray left foot might not be helpful because he had osteomyelitis in that foot, it appears worse and he had an ulcer on the dorsum of the foot R foot xray showed no osteo Will require prolonged IV antibiotic diabetes continue insulin sliding scale obesity hypoventilation syndrome/sleep apnea CPAP and the hospital supplied unit until his family can supply his own end-stage renal disease/ continue hemodialysis as per quality improvement specialist atrial fibrillation is rate controlled at this time he's anticoagulated with Coumadin and his INR is therapeutic, will check in am Disposition working on rehab, he agreed and promise to cooperate with rehabilitation, his only problem that he cannot exercise after dialysis, rehabilitation needs to arrange session prior to dialysis Continued [facility] stay due to: multiple IV medications needed Discharge planning: uncertain
[2017-06-06] MEDS: WARFARIN SOD 5 MG TAB PO SCH (22:10)
[2017-06-06] MEDS: GABAPENTIN 100 MG CAP PO SCH (22:11)
[2017-06-06] MEDS: CINACALCET HCL 90 MG PO SCH (22:12)
[2017-06-06] MEDS: SIMVASTATIN 40 MG TAB PO SCH (22:13)
[2017-06-07] VITALS (25 sets, daily range): BP systolic 74–111; BP diastolic 30–67; PULSE 59–74; TEMP 36.4–36.9; O2SAT 96–98
[2017-06-07] MEDS: LEVOTHYROXINE 50 MCG TAB PO SCH (06:18)
[2017-06-07] MEDS ORDERED: HEPARIN SOD (PORCINE) 1000 UNIT/ML 10 ML VIAL IV SCH (08:00)
[2017-06-07] MEDS ORDERED: EPOETIN ALFA 10,000 UNITS/ML VIAL IV. SCH (08:00)
[2017-06-07] MEDS: CALCIUM ACETATE 667MG GELCAP PO SCH ×3 (08:15→17:00)
[2017-06-07] MEDS: ALLOPURINOL 100 MG TAB PO SCH (08:58)
[2017-06-07] MEDS: ASPIRIN 81 MG ECTAB PO SCH (08:58)
[2017-06-07] MEDS: DOXYCYCLINE HYCLATE 100 MG CAP PO SCH ×2 (08:58→21:55)
[2017-06-07] MEDS: FLUCONAZOLE 100 MG TAB PO SCH (08:58)
[2017-06-07] MEDS: POLYETHYLENE (MIRALAX) 17 GM PACK PO SCH (08:58)
[2017-06-07] MEDS: HEPARIN SOD (PORCINE) 1000 UNIT/ML 10 ML VIAL IV SCH ×3 (09:00→12:00)
[2017-06-07 09:01] LABS: HEMATOCRIT 34.2 % (42-52); MEAN CELL VOLUME 94.5 fL (80-100); MEAN CORPUSCULAR HEMOGLOBIN 28.7 pg (25-34); MEAN CORPUSCULAR HGB CONC 30.4 g/dl (32-36); MEAN PLATELET VOLUME 9.7 fL (7.4-10.4); PLATELET COUNT 282 K/uL (130-400); RED BLOOD COUNT 3.62 M/uL (4.7-6.1); WHITE BLOOD COUNT 6.94 K/uL (4.8-10.8)
[2017-06-07] MEDS: INSULIN ASPART 100 UNITS/ML 3 ML PEN SC SCH ×4 (09:09→22:02)
[2017-06-07] MEDS: LOPERAMIDE HCL 2 MG CAP PO PRN ×2 (09:09→21:58)
[2017-06-07] MEDS: INSULIN GLARGINE 300 UNIT/ML SC SCH (09:09)
--- NOTE | 2017-06-07 12:08 | PROGRESS NOTE ---
DATE: 06/06/2017 RENAL PROGRESS NOTE SUBJECTIVE: Mr. Cabrera says that he is feeling relatively well. However, he remains somewhat weak. His only complaint is some soreness of his bottom from sitting too much. He denies chest pain, cough, wheezing or shortness of breath. He says that his appetite is good. There is no nausea or vomiting. He denies pruritus. He has no other symptoms of uremia or volume overload. He has had no shaking chills or fevers. He has had no night sweats. Apparently[facility]. OBJECTIVE: GENERAL: Seen during the onset of his dialysis treatment. He looks relatively well and obviously comfortable. VITAL SIGNS: He is afebrile (36.4), his blood pressure 109/67, his pulse is 60 and regular (? paced), respiratory rate is 20, his pulse ox 98% on 4 liters of oxygen via nasal cannula. SKIN: Shows normal skin turgor. He has changes of venous stasis dermatitis on his lower extremities. He has scars from prior surgical procedures, most notably a pacemaker beneath the distal left clavicle. He has a scar in the right antecubital fossa from the creation of his right upper arm AV fistula and he has multiple dialysis needle tract henry over the fistula. LYMPHATICS: Show no palpable adenopathy. He has no evidence of lymphangitis. HEAD: Normal. EYES: Grossly normal. The ocular fundi were not examined. EARS, NOSE, MOUTH AND THROAT: Unremarkable. His oral mucous membranes are moist. NECK: Supple. He has no jugular venous distention, but the exam is limited by his body habitus. There is no carotid bruit and no thyromegaly. CHEST: Shows diminished breath sounds throughout, particularly at the bases. There are no wheezes, rales or rhonchi. Pacemaker is palpable beneath the distal left clavicle. CARDIAC: Shows a regular rhythm (likely paced) with a rate of 60. He has a grade 3/6 systolic murmur at the base radiating toward the neck. He has no other murmur, gallop or rub. ABDOMEN: Morbidly obese. There is no abdominal tenderness. There is no obvious organomegaly or mass, but the exam is limited by his weight. EXTREMITIES: Show 1-2+ lower extremity edema which is fairly firm. He has changes of venous stasis dermatitis. His right leg and specifically his heel is wrapped and was again not undressed. Femoral pulses are difficult to feel. I did not feel pedal pulses. Tissue perfusion appears normal based on a normal capillary refill. NEUROLOGIC: Shows no lateralizing changes, but he does have a decrease in protective sensation in his feet. LABORATORY WORK: From today shows a white count of 6940, his hemoglobin is 10.4, hematocrit 34.2, his platelet count 282,000. Clinical chemistries from today is limited to a blood sugar of 152. ASSESSMENT: Mr. Cabrera appears stable. PLAN: No change from the renal perspective. He will continue with his usual dialysis treatments, diet and medications. Hopefully, transfer to [facility] can be arranged. If so, we will potato picker his regular dialysis treatments there. If not, we will have to get together to make a decision as to what his discharge planning could otherwise be.
--- NOTE | 2017-06-07 14:20 | Progress Note ---
Subjective Date of Service: Jun 07, 2017. Subjective Voiding: no incontinence pt off of floor, tolerating abx. wound culture growing gnr and s. aureus, final pending. afebrile overnight. continues on doxy and fluconazole. no overnight events. Problem List Medical Problems: (1) Ambulatory dysfunction Status: Acute (2) End stage renal disease Status: Acute (3) Failure of outpatient treatment Status: Acute (4) Febrile illness Status: Acute (5) Hyperkalemia Status: Acute (6) Infection of right foot Status: Acute (7) Infection of right hand Status: Acute (8) Leukocytosis Status: Acute (9) Superficial injury of right index finger with infection Status: Acute (10) Ulcers of both lower extremities Status: Acute Objective Vital Signs Date Time Temp Pulse Resp B/P (MAP) Pulse Ox O2 Delivery O2 Flow Rate FiO2 06/07/17 14:00 60 85/35 06/07/17 13:45 64 86/31 06/07/17 13:30 59 90/30 06/07/17 13:15 65 82/38 06/07/17 13:00 65 95/49 06/07/17 12:45 61 98/45 06/07/17 12:30 60 91/33 06/07/17 12:15 60 85/42 06/07/17 12:00 61 74/45 06/07/17 11:45 68 92/42 06/07/17 11:30 65 99/43 06/07/17 11:15 70 111/51 06/07/17 11:01 67 98/38 06/07/17 10:48 36.7 66 111/49 (69) 06/07/17 08:20 Nasal Cannula 4.0 Humidified Oxygen 06/07/17 08:11 36.4 20 109/67 (81) 98 Nasal Cannula 2.0 06/07/17 00:25 36.9 67 18 101/62 (75) 98 2.0 06/07/17 00:00 Nasal Cannula 4.0 06/06/17 18:00 Nasal Cannula 4.0 06/06/17 15:53 36.4 60 20 118/66 (83) 99 Nasal Cannula 4.0 Laboratory Results Item Value Date Time Gram Stain - Final Resulted 06/06/17 1140 Drainage-Deep Foot Left Blood Culture - Final Complete 05/28/17 1651 Blood NO GROWTH Blood Culture - Final Complete 05/28/17 1644 Blood NO GROWTH Last 24 Hours Test 06/06/17 16:05 06/06/17 20:36 06/07/17 07:57 06/07/17 08:05 Bedside Glucose 168 mg/dl 180 mg/dl 152 mg/dl White Blood Count 6.94 K/uL Red Blood Count 3.62 M/uL Hemoglobin 10.4 g/dL Hematocrit 34.2 % Mean Corpuscular Volume 94.5 fL Mean Corpuscular Hemoglobin 28.7 pg Mean Corpuscular Hemoglobin Concent 30.4 g/dl RDW Standard Deviation 63.4 fL RDW Coefficient of Variation 18.7 % Platelet Count 282 K/uL Mean Platelet Volume 9.7 fL Assessment and Plan (1) Cellulitis Assessment & Plan: will continue doxy for now and add gnr coverage pending final. Continued [facility] stay due to: multiple IV medications needed Discharge planning: uncertain
[2017-06-07] MEDS ORDERED: LEVOFLOXACIN 500 MG TAB PO SCH (15:00)
--- NOTE | 2017-06-07 15:03 | Progress Note ---
Subjective Date of Service: Jun 07, 2017. Subjective Pt evaluation today including: conversation w/ patient, physical exam, chart review, lab review, review of studies, conversation w/ sales consultant residential manager, review of inpatient medication list Problem List Medical Problems: (1) Ambulatory dysfunction Status: Acute (2) End stage renal disease Status: Acute (3) Failure of outpatient treatment Status: Acute (4) Febrile illness Status: Acute (5) Hyperkalemia Status: Acute (6) Infection of right foot Status: Acute (7) Infection of right hand Status: Acute (8) Leukocytosis Status: Acute (9) Superficial injury of right index finger with infection Status: Acute (10) Ulcers of both lower extremities Status: Acute Review of Systems Constitutional: No see HPI, No fever, No chills, No sweats, No weight loss, No weakness, No fatigue, No problem reported Eyes: No see HPI, No worsening of vision, No eye pain, No redness, No discharge , No diplopia, No problem reported ENT: No see HPI, No hearing loss, No unusual epistaxis, No nasal symptoms, No sore throat, No tinnitus, No dental problems, No trouble swallowing, No problem reported Respiratory: No see HPI, No cough, No sputum, No wheezing, No shortness of breath, No dyspnea on exertion, No dyspnea at rest, No hemoptysis, No problem reported Cardiac: No see HPI, No chest pain, No orthopnea, No PND, No edema, No claudication, No palpitations, No problem reported Abdomen: No see HPI, No pain, No nausea, No vomiting, No diarrhea, No constipation, No GI bleeding, No problem reported Musculoskeletal: + joint pain, + problem reported (bilateral feet pain), No see HPI, No muscle pain, No swelling, No calf pain Male : No see HPI, No dysuria, No urinary frequency, No incontinence, No nocturia more than once/night, No slowing stream, No hematuria, No sexual dysfunction, No problem reported Neurologic: No see HPI, No memory loss, No paralysis, No weakness, No numbness/ tingling, No vertigo, No balance problems, No problem reported Psychiatric: No see HPI, No depression symptoms, No anhedonism, No anxiety, No insomnia, No substance abuse, No problem reported Heme: No see HPI, No abnormal bleeding/bruising, No clotting problems, No swollen lymph nodes, No night sweats, No problem reported Endo: No see HPI, No fatigue, No excessive thirst, No excessive urination, No problem reported Skin: No see HPI, No rash, No itch, No new/changing skin lesions, No color change, No bleeding, No problem reported Objective Vital Signs Date Time Temp Pulse Resp B/P (MAP) Pulse Ox O2 Delivery O2 Flow Rate FiO2 06/07/17 14:45 61 87/30 06/07/17 14:30 74 87/41 06/07/17 14:15 61 83/32 06/07/17 14:00 60 85/35 06/07/17 13:45 64 86/31 06/07/17 13:30 59 90/30 06/07/17 13:15 65 82/38 06/07/17 13:00 65 95/49 06/07/17 12:45 61 98/45 06/07/17 12:30 60 91/33 06/07/17 12:15 60 85/42 06/07/17 12:00 61 74/45 06/07/17 11:45 68 92/42 06/07/17 11:30 65 99/43 06/07/17 11:15 70 111/51 06/07/17 11:01 67 98/38 06/07/17 10:48 36.7 66 111/49 (69) 06/07/17 08:20 Nasal Cannula 4.0 Humidified Oxygen 06/07/17 08:11 36.4 20 109/67 (81) 98 Nasal Cannula 2.0 06/07/17 00:25 36.9 67 18 101/62 (75) 98 2.0 06/07/17 00:00 Nasal Cannula 4.0 06/06/17 18:00 Nasal Cannula 4.0 06/06/17 15:53 36.4 60 20 118/66 (83) 99 Nasal Cannula 4.0 Physical Exam General Appearance: WD/WN, no apparent distress Eyes: normal inspection, EOMI ENT: normal ENT inspection, hearing grossly normal Neck: supple Respiratory/Chest: chest non-tender, lungs clear, normal breath sounds, no respiratory distress, no accessory muscle use Cardiovascular: regular rate, rhythm, no edema, no gallop, no JVD, no murmur Abdomen: normal bowel sounds, non tender, soft, no organomegaly Extremities: normal range of motion, + pertinent finding (left foot has a superficial ulcer 2 x 2 centimeter right foot is wrapped) Neurologic/Psychiatric: dispatcher radio II-XII nml as tested, no motor/sensory deficits, alert, normal mood/affect, oriented x 3 Skin: normal color, warm/dry, no rash Laboratory Results Last 24 Hours Test 06/06/17 16:05 06/06/17 20:36 06/07/17 07:57 06/07/17 08:05 Bedside Glucose 168 mg/dl 180 mg/dl 152 mg/dl White Blood Count 6.94 K/uL Red Blood Count 3.62 M/uL Hemoglobin 10.4 g/dL Hematocrit 34.2 % Mean Corpuscular Volume 94.5 fL Mean Corpuscular Hemoglobin 28.7 pg Mean Corpuscular Hemoglobin Concent 30.4 g/dl RDW Standard Deviation 63.4 fL RDW Coefficient of Variation 18.7 % Platelet Count 282 K/uL Mean Platelet Volume 9.7 fL Assessment and Plan 72-year-old male end-stage renal disease diabetic who presents with a diabetic foot infection and acute on chronic diastolic heart failure previous wound Cx on 05/23 grew up MRSA Diabetic foot infection/finger infection S/P vancomycin and Zosyn currently on doxycycline , wound care ( D/W Dr. García ) started fluconazole oral for severe tinea pedis 06/05 Left foot culture is growing gram-negative bacilli Xray left foot might not be helpful because he had osteomyelitis in that foot, it appears worse and he had an ulcer on the dorsum of the foot Left and R foot xray showed no osteo Will require prolonged IV antibiotic diabetes continue insulin sliding scale obesity hypoventilation syndrome/sleep apnea CPAP and the hospital supplied unit until his family can supply his own end-stage renal disease/ continue hemodialysis as per electronic maintenance supervisor atrial fibrillation is rate controlled at this time he's anticoagulated with Coumadin and his INR is therapeutic, will check in am Disposition working on rehab, he agreed and promise to cooperate with rehabilitation, his only problem that he cannot exercise after dialysis, rehabilitation needs to arrange session prior to dialysis Continued [facility] stay due to: multiple IV medications needed Discharge planning: uncertain
[2017-06-07] MEDS: CINACALCET HCL 90 MG PO SCH (21:00)
[2017-06-07] MEDS: WARFARIN SOD 5 MG TAB PO SCH (21:51)
[2017-06-07] MEDS: GABAPENTIN 100 MG CAP PO SCH (21:51)
[2017-06-07] MEDS: SIMVASTATIN 40 MG TAB PO SCH (21:54)
[2017-06-07] MEDS: CALCIUM ACETATE 667MG GELCAP PO PRN (22:05)
[2017-06-08] MEDS: LEVOTHYROXINE 50 MCG TAB PO SCH (05:14)
[2017-06-08 08:07] VITALS: BP 92/55; PULSE 70; TEMP 36.5; O2SAT 98
[2017-06-08] MEDS: FLUCONAZOLE 100 MG TAB PO SCH (08:27)
[2017-06-08] MEDS: ALLOPURINOL 100 MG TAB PO SCH (08:27)
[2017-06-08] MEDS: ASPIRIN 81 MG ECTAB PO SCH (08:27)
[2017-06-08] MEDS: DOXYCYCLINE HYCLATE 100 MG CAP PO SCH (08:27)
[2017-06-08] MEDS: POLYETHYLENE (MIRALAX) 17 GM PACK PO SCH (08:28)
[2017-06-08] MEDS: CALCIUM ACETATE 667MG GELCAP PO SCH ×3 (08:28→17:37)
[2017-06-08] MEDS: INSULIN ASPART 100 UNITS/ML 3 ML PEN SC SCH ×4 (08:32→21:00)
[2017-06-08] MEDS: INSULIN GLARGINE 300 UNIT/ML SC SCH (08:32)
[2017-06-08] MEDS ORDERED: SODIUM CHLORIDE 0.9% 1000ML 1,000 ML IV PRN (11:01)
[2017-06-08] MEDS: HEPARIN SOD (PORCINE) 1000 UNIT/ML 10 ML VIAL IV SCH ×4 (11:15→13:15)
--- NOTE | 2017-06-08 11:16 | NEPHROLOGY PROGRESS NOTE ---
DATE: 06/08/2017 DATE: 06/08/2017 SUBJECTIVE: Mr. Cabrera says that he is feeling quite well. He denies any chest pain, palpitations or shortness of breath. His appetite is good. He has had no nausea or vomiting. He denies pruritus. He has no symptoms of uremia or volume overload. He has had no shaking chills and he has had no night sweats. He was visited by wound clinic personnel today as well as yesterday. His right heel ulcer is nearly completely healed. However, he has got a new ulceration on his left heel. Apparently according to reports that appears to be dry with no significant surrounding cellulitis. It will continue to be treated locally. OBJECTIVE: GENERAL: On physical exam when seen by me, Mr. Cabrera appeared perfectly comfortable. VITAL SIGNS: He is afebrile (36.5), his blood pressure 92/55. His pulse 70 and slightly irregular, respiratory rate is 20, his pulse ox 98 on 4 liters of oxygen via nasal cannula. SKIN: Shows normal skin turgor. Both lower extremities are wrapped concealing his changes of venous stasis dermatitis. He has scars from prior surgical procedures, most notably his pacemaker beneath the distal left clavicle and a scar in the right antecubital fossa from the creation of his right upper arm AV fistula. There are multiple dialysis needle track henry over the fistula. The denuded areas on the fingers of his right hand are essentially completely healed. LYMPHATICS: Show no evidence of lymphangitis or lymphadenopathy. HEAD: Normal. EYES: Grossly normal. The ocular fundi were not examined. EARS, NOSE, MOUTH AND THROAT: Unremarkable. Oral mucous membranes are moist. NECK: Supple. There is no jugular venous distention, but the exam is limited by his body habitus. He has no carotid bruit and no thyromegaly. CHEST: Shows elevated hemidiaphragms and diminished breath sounds throughout, particularly at the bases. He has no wheezes, rales or rhonchi. CARDIAC EXAMINATION: Shows a slightly irregular rhythm compatible with atrial fibrillation. He has a grade 2-3/6 systolic murmur at the base radiating to the neck. No diastolic murmurs are heard. He has no gallops or rubs. ABDOMEN: Morbidly obese. It is nontender. There is no organomegaly or mass, but the exam is limited by his weight. EXTREMITIES: Show the distal lower extremities to be wrapping and cannot be examined further. He has good capillary refill in his fingers. Femoral pulses are difficult to feel, but they are present. NEUROLOGIC EXAMINATION: Shows no lateralizing changes. He does have a decrease in protective sensation in his distal lower extremities. PERTINENT LABORATORY WORK: From today is noted a blood sugar of 184 done at 7:37 this morning. ASSESSMENT: Mr. Cabrera remains stable. Care of the ulceration on his left heel will continue to be managed by wound clinic. Hopefully he will be ready for discharge or transfer to [facility] by tomorrow. Hopefully, he will be able to participate in physical therapy. If not, options for discharge planning are limited.
[2017-06-08] MEDS ORDERED: EPOETIN ALFA 10,000 UNITS/ML VIAL IV. SCH (11:30)
--- NOTE | 2017-06-08 13:41 | Progress Note ---
Subjective Date of Service: Jun 08, 2017. Subjective Pt evaluation today including: conversation w/ patient, physical exam, chart review, lab review pt seen in followup, eating lunch. feeling well. no f/c tolerating abx. wound cultures with MSSA and Serritia. MSSA is doxy resistant. pt denies pain in leg. for dressing change tomorrow. All remaining ros reviewed and are negative. Problem List Medical Problems: (1) Ambulatory dysfunction Status: Acute (2) End stage renal disease Status: Acute (3) Failure of outpatient treatment Status: Acute (4) Febrile illness Status: Acute (5) Hyperkalemia Status: Acute (6) Infection of right foot Status: Acute (7) Infection of right hand Status: Acute (8) Leukocytosis Status: Acute (9) Superficial injury of right index finger with infection Status: Acute (10) Ulcers of both lower extremities Status: Acute Objective Vital Signs Date Time Temp Pulse Resp B/P (MAP) Pulse Ox O2 Delivery O2 Flow Rate FiO2 06/08/17 08:20 Nasal Cannula 4.0 Humidified Oxygen 06/08/17 08:07 36.5 70 20 92/55 (67) 98 4.0 06/08/17 00:00 Room Air 06/07/17 23:27 36.6 63 18 91/54 (66) 96 3.0 06/07/17 19:00 Nasal Cannula 4.0 Humidified Oxygen 06/07/17 16:13 36.6 64 82/43 (56) 06/07/17 15:30 59 88/35 06/07/17 15:15 63 100/33 06/07/17 15:00 63 83/50 06/07/17 14:45 61 87/30 06/07/17 14:30 74 87/41 06/07/17 14:15 61 83/32 06/07/17 14:00 60 85/35 06/07/17 13:45 64 86/31 Physical Exam General Appearance: WD/WN, no apparent distress Eyes: normal inspection, EOMI Neck: supple Respiratory/Chest: lungs clear, normal breath sounds, no respiratory distress Cardiovascular: regular rate, rhythm Abdomen: soft Extremities: non-tender, + pertinent finding (dressing c/d/i) Neurologic/Psychiatric: alert, oriented x 3 Skin: normal color, warm/dry, no rash Laboratory Results Item Value Date Time Gram Stain - Final Resulted 06/06/17 1140 Drainage-Deep Foot Left Blood Culture - Final Complete 05/28/17 1651 Blood NO GROWTH Blood Culture - Final Complete 05/28/17 1644 Blood NO GROWTH Last 24 Hours Test 06/07/17 16:26 06/07/17 20:48 06/08/17 07:37 06/08/17 11:49 Bedside Glucose 121 mg/dl 215 mg/dl 184 mg/dl 209 mg/dl Assessment and Plan (1) Cellulitis Assessment & Plan: will adjust abx to keflex and levaquin renal dosing. duration open ended, will plan to follow in office post d/c. no new ID recs at this time. Continued [facility] stay due to: multiple IV medications needed Discharge planning: uncertain
[2017-06-08 16:21] VITALS: BP 89/45; PULSE 65; TEMP 36.8; O2SAT 99
--- NOTE | 2017-06-08 18:43 | Progress Note ---
Subjective Date of Service: Jun 08, 2017. Subjective Pt evaluation today including: conversation w/ patient, physical exam, chart review, lab review, review of inpatient medication list Problem List Medical Problems: (1) Ambulatory dysfunction Status: Acute (2) End stage renal disease Status: Acute (3) Failure of outpatient treatment Status: Acute (4) Febrile illness Status: Acute (5) Hyperkalemia Status: Acute (6) Infection of right foot Status: Acute (7) Infection of right hand Status: Acute (8) Leukocytosis Status: Acute (9) Superficial injury of right index finger with infection Status: Acute (10) Ulcers of both lower extremities Status: Acute Review of Systems Constitutional: No see HPI, No fever, No chills, No sweats, No weight loss, No weakness, No fatigue, No problem reported Eyes: No see HPI, No worsening of vision, No eye pain, No redness, No discharge , No diplopia, No problem reported ENT: No see HPI, No hearing loss, No unusual epistaxis, No nasal symptoms, No sore throat, No tinnitus, No dental problems, No trouble swallowing, No problem reported Respiratory: No see HPI, No cough, No sputum, No wheezing, No shortness of breath, No dyspnea on exertion, No dyspnea at rest, No hemoptysis, No problem reported Cardiac: No see HPI, No chest pain, No orthopnea, No PND, No edema, No claudication, No palpitations, No problem reported Abdomen: No see HPI, No pain, No nausea, No vomiting, No diarrhea, No constipation, No GI bleeding, No problem reported Musculoskeletal: No see HPI, No joint pain, No muscle pain, No swelling, No calf pain, No problem reported Neurologic: No see HPI, No memory loss, No paralysis, No weakness, No numbness/ tingling, No vertigo, No balance problems, No problem reported Psychiatric: No see HPI, No depression symptoms, No anhedonism, No anxiety, No insomnia, No substance abuse, No problem reported Heme: No see HPI, No abnormal bleeding/bruising, No clotting problems, No swollen lymph nodes, No night sweats, No problem reported Endo: No see HPI, No fatigue, No excessive thirst, No excessive urination, No problem reported Skin: No see HPI, No rash, No itch, No new/changing skin lesions, No color change, No bleeding, No problem reported Objective Vital Signs Date Time Temp Pulse Resp B/P (MAP) Pulse Ox O2 Delivery O2 Flow Rate FiO2 06/08/17 16:21 36.8 65 16 89/45 (60) 99 Nasal Cannula 4.0 06/08/17 08:20 Nasal Cannula 4.0 Humidified Oxygen 06/08/17 08:07 36.5 70 20 92/55 (67) 98 4.0 06/08/17 00:00 Room Air 06/07/17 23:27 36.6 63 18 91/54 (66) 96 3.0 06/07/17 19:00 Nasal Cannula 4.0 Humidified Oxygen Physical Exam General Appearance: no apparent distress, + obese Eyes: normal inspection, EOMI ENT: normal ENT inspection, hearing grossly normal Neck: supple Respiratory/Chest: chest non-tender, lungs clear, normal breath sounds, no respiratory distress, no accessory muscle use Cardiovascular: regular rate, rhythm, no edema, no gallop, no JVD, no murmur Abdomen: normal bowel sounds, non tender, soft, no organomegaly, no pulsatile mass Extremities: normal range of motion, + inflammation, + swelling 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 García , will discuss tomorrow admitting vancomycin with dialysis cover the MRSA as it didn't out that it is resistant to doxycycline started fluconazole oral for severe tinea pedis 06/05 Left foot culture is growing gram-negative bacilli Xray left foot might not be helpful because he had osteomyelitis in that foot, it appears worse and he had an ulcer on the dorsum of the foot Left and R foot xray showed no osteo diabetes continue insulin sliding scale obesity hypoventilation syndrome/sleep apnea CPAP and the hospital supplied unit until his family can supply his own end-stage renal disease/ continue hemodialysis 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
[2017-06-08 20:00] VITALS: O2SAT 99
[2017-06-08] MEDS: CALCIUM ACETATE 667MG GELCAP PO PRN (21:42)
[2017-06-08] MEDS: WARFARIN SOD 5 MG TAB PO SCH (21:43)
[2017-06-08] MEDS: GABAPENTIN 100 MG CAP PO SCH (21:45)
[2017-06-08] MEDS: CINACALCET HCL 90 MG PO SCH (21:47)
[2017-06-08] MEDS: SIMVASTATIN 40 MG TAB PO SCH (21:48)
[2017-06-08 23:18] VITALS: BP 93/56; PULSE 66; TEMP 36.7; O2SAT 97
[2017-06-09] VITALS (24 sets, daily range): BP systolic 74–104; BP diastolic 38–56; PULSE 59–66; TEMP 36.4–36.6; O2SAT 99
[2017-06-09] MEDS: LEVOTHYROXINE 50 MCG TAB PO SCH (06:23)
[2017-06-09 06:38] LABS: BASO % 0.5 %; BASO ABS # 0.03 K/uL (0-0.2); COMPLETE YES; EOS % 4.7 %; HEMATOCRIT 32.7 % (42-52); IG% 0.5 %; LYMPH % 24.2 %; LYMPH ABS # 1.51 K/uL (1.2-3.4); MEAN CELL VOLUME 93.4 fL (80-100); MEAN CORPUSCULAR HEMOGLOBIN 28.6 pg (25-34); MEAN CORPUSCULAR HGB CONC 30.6 g/dl (32-36); MEAN PLATELET VOLUME 9.6 fL (7.4-10.4); MONO % 10.6 %; NEUT % 59.5 %; PLATELET COUNT 229 K/uL (130-400); WHITE BLOOD COUNT 6.23 K/uL (4.8-10.8)
[2017-06-09 07:24] LABS: ALB/GLOB RATIO 0.9 (0.9-2); BUN/CREATININE RATIO 7.8 (10-20); CALCIUM 8.9 mg/dl (8.5-10.1); CREATININE 9.4 mg/dl (0.60-1.40); MAGNESIUM 2.4 mg/dl (1.8-2.4); PHOSPHORUS 5.8 mg/dl (2.5-4.9); POTASSIUM 5.1 mmol/L (3.5-5.1)
[2017-06-09] MEDS: FLUCONAZOLE 100 MG TAB PO SCH (07:45)
[2017-06-09] MEDS: ASPIRIN 81 MG ECTAB PO SCH (07:45)
[2017-06-09] MEDS: ALLOPURINOL 100 MG TAB PO SCH (07:45)
[2017-06-09] MEDS: POLYETHYLENE (MIRALAX) 17 GM PACK PO SCH (07:47)
[2017-06-09] MEDS: CALCIUM ACETATE 667MG GELCAP PO SCH ×2 (07:49→12:00)
[2017-06-09] MEDS: INSULIN GLARGINE 300 UNIT/ML SC SCH (07:55)
[2017-06-09] MEDS: INSULIN ASPART 100 UNITS/ML 3 ML PEN SC SCH ×2 (07:56→12:38)
[2017-06-09] MEDS ORDERED: CEPHALEXIN MONOHYDRATE 250 MG CAP PO SCH (09:00)
[2017-06-09] MEDS: LOPERAMIDE HCL 2 MG CAP PO PRN (09:14)
[2017-06-09] MEDS ORDERED: LEVOFLOXACIN 250 MG TAB PO SCH (11:00)
[2017-06-09] MEDS: HEPARIN SOD (PORCINE) 1000 UNIT/ML 10 ML VIAL IV SCH (11:30)
--- NOTE | 2017-06-09 11:46 | NEPHROLOGY PROGRESS NOTE ---
DATE: 06/09/2017 DATE: 06/09/2017 SUBJECTIVE: Mr. Cabrera says that he is feeling about the same. He denies any shaking chills or fevers. He denies having any foot pain or leg pain. He denies being short of breath using his oxygen. He has no cough or wheezing. His appetite remains reasonably good. He is awaiting the initiation of his dialysis treatment for today. He has apparently been accepted to [facility]. OBJECTIVE: GENERAL: On physical exam today, Mr. Cabrera was lying in bed. He seemed to be perfectly comfortable and certainly not acutely ill but obviously chronically ill. VITAL SIGNS: He is afebrile (36.6). His blood pressure 90/51 with a pulse of 60 and basically regular (probably paced), his respiratory rate is 16, his pulse ox 99% on 4 liters of oxygen via nasal cannula. SKIN: Shows normal skin turgor. He has his lower extremities dressed and therefore one cannot see the evidence of his chronic venous stasis dermatitis and left heel ulcer. The right heel ulcer is reportedly continuing to do. Lymphatics show no palpable lymphadenopathy or evidence of lymphangitis on his upper legs/thighs. HEAD: Normal. EYES: Grossly normal. The ocular fundi were not examined. EARS, NOSE, MOUTH AND THROAT: Unremarkable. Oral mucous membranes are moist. NECK: Supple. There is no jugular venous distention. The exam is limited by his body habitus. I hear no carotid bruit and there is no thyromegaly. CHEST: Shows elevated hemidiaphragms and diminished breath sounds at the bases consistent with his body habitus. I hear no wheezes, rales or rhonchi. Breath sounds are generally diminished. CARDIAC EXAMINATION: Shows a basically regular rhythm. A pacer is palpable beneath the distal left clavicle. S1 and S2 seem normal. There is a grade 2-3/6 systolic murmur at the base radiating toward the neck. I hear no diastolic murmurs. ABDOMEN: Morbidly obese. There is no obvious organomegaly or mass, but again the exam is limited by his size. There is no significant abdominal tenderness. EXTREMITIES: Show no gross obvious cyanosis or clubbing. His lower extremities are wrapped and were not undressed. They will be examined by wound clinic who reportedly will come to see him today. NEUROLOGIC EXAMINATION: Shows no lateralizing changes and no evidence of asterixis. PERTINENT LABORATORY WORK: From today shows a white count of 6,230, his white cell differential is normal. His hemoglobin 10.0, hematocrit 32.7. His platelet count 229,000. His clinical chemistries from today show a sodium of 133 mmol/L, potassium 5.1 mmol/L, chloride 95 mmol/L, and CO2 content 28 mmol/L. His BUN 73, creatinine 9.40. Blood sugars vary from 168-209. His serum calcium 8.9, phosphate 5.8, magnesium 2.4, total bilirubin 0.3. His AST is 9, his ALT is 35. His alkaline phosphatase 103, total protein 6.9, albumin 3.2. ASSESSMENT: Mr. Cabrera seems perfectly stable. He will be dialyzed later today. Wound care is attending to his lower extremity inflammatory changes and heel ulcers, one of which (right-side) is nearly completely healed according to their recent report. RECOMMENDATIONS: From the renal perspective, he can be transferred to [facility]. Dialysis orders have been given should he be transferred. Certainly wound care can see him at [facility] as well. On transfer, he should be maintained on his usual medications.
[2017-06-09] MEDS ORDERED: DFL100 PO (15:15)
[2017-06-09] MEDS ORDERED: KFL250 PO (15:15)
[2017-06-09] MEDS ORDERED: LVQ250 PO (15:15)
[2017-06-09] MEDS ORDERED: GABA1CAP PO (15:15)
--- NOTE | 2017-06-09 15:18 | Discharge Instructions ---
Discharge Instructions Date of Service Jun 09, 2017. Admission Reason for Admission: Diabetic Foot Infection, Hypoxia Discharge Discharge Diagnosis / Problem: lowe ext cellulitis Discharge Goals Goal(s): Decrease discomfort Activity Recommendations Activity Limitations: resume your previous activity . Current Hospital Diet Patient's current hospital diet: Diabetes Type 2 Diet, Renal Diet Discharge Diet Recommended Diet: AHA Diet (Heart Healthy), Renal Diet Pending Studies Studies pending at discharge: no Medical Emergencies . Who to Call and When: Medical Emergencies: If at any time you feel your situation is an emergency, please call 911 immediately. . Non-Emergent Contact Non-Emergency issues call your: Primary Care Provider, Emergency Vehicle Technician Call Non-Emergent contact if: you have a fever, your pain is not controlled, wound has increased drainage, wound has increased redness . . "Provider Documentation" section prepared by Edgar Huston. . VTE Core Measure Inpt VTE Proph given/why not?: Warfarin (Coumadin)
--- NOTE | 2017-06-09 15:28 | Discharge Summary ---
Discharge Summary Date of Service Jun 09, 2017. Discharge Summary Admission Date: May 28, 2017 at 19:53 Discharge Date: Jun 09, 2017 Discharge Disposition: Rehab Principal Diagnosis: bilateral lower extremity cellulitis Problems/Secondary Diagnoses: Tinea pedis End-stage renal disease on hemo dialysis diabetes continue insulin sliding scale obesity hypoventilation syndrome/sleep apnea atrial fibrillation is rate controlled Immunizations: Have You Had Influenza Vaccine: Unknown History of Tetanus Vaccine?: Unknown History of Pneumococcal: Unknown History of Hepatitis B Vaccine: Unknown Medication Reconciliation New Medications: Cephalexin Monohydrate (Cephalexin) 250 Mg Cap 250 MG PO DAILY for 30 Days, #30 CAP Fluconazole (Fluconazole) 100 Mg Tab 100 MG PO QAM for 5 Days, #5 TAB Levofloxacin (Levofloxacin) 250 Mg Tab 250 MG PO Q48H for 30 Days, #15 TAB Continued Medications: Acetaminophen (Tylenol) 325 Mg Tab 650 MG PO Q6 PRN for Pain or Fever, TAB Allopurinol (Zyloprim) 100 Mg Tab 100 MG PO QAM, TAB Aspirin (Aspirin Ec) 81 Mg Tab 81 MG PO QAM Bisacodyl (Dulcolax) 5 Mg Tab 1 TAB PO UD for 1 Day, #2 TAB Calcium Acetate (Phoslo 667 Mg) 667 Mg Cap 4 TABS PO TIDM, 0 Refills take 4 caps with each meal Calcium Acetate (Phoslo 667 Mg) 667 Mg Cap 3 CAP PO UD with snacks Cinacalcet (Sensipar) 30 Mg Tab 60 MG PO DAILY WITH EVENING MEAL Gabapentin (Neurontin) 100 Mg Cap 1 CAP PO QPM for 30 Days, #30 CAP 2 Refills (This prescription has been renewed) Home O2 Therapy (Oxygen) Gas 4 LITERS NA CONTINOUS Insulin Aspart (Novolog Flexpen) 100 Units/Ml Inj 0 UNITS SC AC, #1 goal range: 125-150. use correction factor of 15 use carbohydrate ratio of 1 unit of insulin for every 5 grams of carbohydrates consumed. Insulin Glargine (Toujeo Solostar) 300 Unit/Ml Inj 50 UNITS SC QAM Levothyroxine Sodium (Levothyroxine Sodium) 50 Mcg Tab 1 TAB PO DAILYBB, #30 Multiple Vitamins W/ Minerals (Therems M) 1 Tab Tab 1 TAB PO QAM Polyethylene Glycol 3350 (Miralax) 1 Pow Pow 17 GM PO QAM Povidone-Iodine (Betadine) 10 % Adriana 1 DOSE TOP QAM Simvastatin (Zocor) 40 Mg Tab 40 MG PO QPM Warfarin Sodium (Coumadin) 5 Mg Tab 5 MG PO HS Discontinued Medications: Cephalexin Monohydrate (Cephalexin) 1 Homepack Ea 1 TAB PO TID for 10 Days, #30 Doxycycline Hyclate (Doxycycline Hyclate) 100 Mg Tab 1 TAB PO BID for 28 Days, #56 Discharge Exam Review of Systems: Constitutional: No fever, No chills, No sweats, No weight loss, No weakness , No fatigue, No problem reported Eyes: No worsening of vision, No eye pain, No redness, No discharge, No diplopia, No problem reported ENT: No hearing loss, No unusual epistaxis, No nasal symptoms, No sore throat, No tinnitus, No dental problems, No trouble swallowing, No problem reported Respiratory: No cough, No sputum, No wheezing, No shortness of breath, No dyspnea on exertion, No dyspnea at rest, No hemoptysis, No problem reported Cardiovascular: No chest pain, No orthopnea, No PND, No edema, No claudication, No palpitations, No problem reported Abdomen: No pain, No nausea, No vomiting, No diarrhea, No constipation, No GI bleeding, No problem reported Musculoskeletal: No joint pain, No muscle pain, No swelling, No calf pain, No problem reported Neurologic: No memory loss, No paralysis, No weakness, No numbness/tingling , No vertigo, No balance problems, No problem reported Psychiatric: No depression symptoms, No anhedonism, No anxiety, No insomnia , No substance abuse, No problem reported Endocrine: No fatigue, No excessive thirst, No excessive urination, No problem reported Hematologic / Lymphatic: No abnormal bleeding/bruising, No clotting problems , No swollen lymph nodes, No night sweats, No problem reported Integumentary: No rash, No itch, No new/changing skin lesions, No color change, No bleeding, No problem reported Physical Exam: General Appearance: no apparent distress, + obese Eyes: normal inspection, EOMI ENT: normal ENT inspection, hearing grossly normal Neck: supple Respiratory/Chest: chest non-tender, lungs clear, normal breath sounds, no respiratory distress Cardiovascular: regular rate, rhythm, no edema, no gallop, no JVD, no murmur Abdomen / GI: normal bowel sounds, non tender, soft, no organomegaly, no pulsatile mass Extremities: normal inspection, no calf tenderness, normal capillary refill , no pedal edema 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 García after cultures came back Noticed to have severe tinea pedis, started on fluconazole orally for 10 days then will be switched to ketoconazole between toes for 8 weeks. 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 he agreed and promise to cooperate with rehabilitation, his only problem that he cannot exercise after dialysis, rehabilitation needs to arrange session prior to dialysis Total Time Spent: Greater than 30 minutes This includes examination of the patient, discharge planning, medication reconciliation, and communication with other providers. Discharge Instructions Please refer to the electronic Patient Visit Report (Discharge Instructions) for additional information.
[2017-06-09] MEDS ORDERED: NZRCR TOP (15:30)
--- NOTE | 2017-06-13 13:50 | Wound Progress Note: Inpatient ---
Wound Progress Note Date of Service June 05, 2017. Subjective Pt evaluation today including: conversation w/ patient, physical exam, chart review Patient is seen today for follow-up evaluation of venous stasis ulcerations to the left lower extremity as well as an ulceration to the left foot. Patient states she's had some increased swelling and drainage from this area. Patient denies any other new systemic complaints this time. Objective Physical Exam General Appearance: no apparent distress Extremities: + pertinent finding (patient today shows an extensive increase of drainage and edema from the left lower extremity ulcerations site measuring 30 x 22 x 0.1 cm. There is scattered slough noted at the site. No significant eschar formation. No active drainage or odor noted. Additional ulceration is noted to the left foot measuring 1.5 x 1.9 x 0.3 cm. Surrounding eschar and some minimal central slough is noted. The stage II pressure ulcer to the right heel is stable.) Assessment and Plan Assessment: Stage II pressure ulcer right heel stable Venous stasis ulceration left lower extremity Chronic venous insufficiency with edema Ulceration left foot Plan: At this time debridement is indicated. With patient's permission and after the application of topical Xylocaine 4% the left lower extremity ulcerative site was debridement with a #5 curette. Off was removed with minimal bleeding. Ulceration the left foot will was also debridement with a #5 curette. Central slough was removed. Ulceration left foot will be managed with Aquasol AG gauze , the balance of the left lower extremity will be managed with Aquacel Ag gauze and a co-bandlike compression wrap . Compression wrap dressing to be changed in 24 hours and then twice weekly. Patient will continue to be monitored during his course of hospitalization reevaluated upon discharge. This represented a non-excisional debridement of approximately 200 cm.
== END 2017-06-09 16:20 | DRG 602 ==
LOC: C.EDB 15:05 → C.2T 19:53 → ENRESERV 20:06 → C.MS2W 05-29 12:44
PROVIDERS: ADMIT Internal Medicine; ATTEND Internal Medicine
DX: L03.115 Cellulitis of right lower limb (principal); N18.6 End stage renal disease; J96.21 Acute and chronic respiratory failure with hypoxia; I50.33 Acute on chronic diastolic (congestive) heart failure; E66.2 Morbid (severe) obesity with alveolar hypoventilation; Z68.42 Body mass index [BMI] 45.0-49.9, adult; L89.612 Pressure ulcer of right heel, stage 2; E11.22 Type 2 diabetes mellitus with diabetic chronic kidney disease; I48.91 Unspecified atrial fibrillation; E87.5 Hyperkalemia; B95.61 Methicillin susceptible Staphylococcus aureus infection as the cause of diseases classified elsewhere; E11.622 Type 2 diabetes mellitus with other skin ulcer; I87.8 Other specified disorders of veins; E03.9 Hypothyroidism, unspecified; Z79.01 Long term (current) use of anticoagulants; Z79.4 Long term (current) use of insulin; Z79.82 Long term (current) use of aspirin; Z79.899 Other long term (current) drug therapy; Z95.0 Presence of cardiac pacemaker; Z99.2 Dependence on renal dialysis; Z87.891 Personal history of nicotine dependence

== ENCOUNTER → 2017-07-06 | Outpatient (CLI) | payer OTHER, MEDICARE ==
[~2017-07-06] MED LIST changes: -AMOX500C3 PO; +BISA-16 PO; -BISA10SU38 PR; -CEPH500C2 PO; +DFL100 PO; -DOXY100C76 PO; +KFL250 PO; -LEVO25TA PO; +LEVO50TA6 PO; +LVQ250 PO; -MOML PO; -NYSTATIN POWDER TOP; +NZRCR TOP; -OXYC-57 PO; -SODIENE PR
--- NOTE | 2017-07-06 08:44 | DIAGNOSTIC IMAGING REPORT ---
R HAND MIN 3 VIEWS ROUTINE CLINICAL HISTORY: 72 years-old Male presenting with RECURRENT FINGER WOUNDS 3RD 4TH FINGERS. TECHNIQUE: Frontal, oblique, and lateral views the right hand were obtained. COMPARISON: Correlation made to plain radiographs of the right fingers from 03/21/2017. FINDINGS: Previously noted erosion of the head of the middle phalanx of the second finger is again apparent best seen on lateral view, although not progressed since the prior exam. A bandage overlies the third and fourth ring ureters. No evidence of osseous erosion or periosteal reaction to suggest osteomyelitis. Joint space loss and central erosion suggested at the distal interphalangeal joint of the fifth finger. Mild osteophytosis noted at the interphalangeal joint of the first finger. No acute fracture or malalignment. Osteopenia may be present. IMPRESSION: 1. No radiographic evidence of osteomyelitis in the third or fourth fingers. Noncontrast MR is more sensitive for this diagnosis. 2. Previously noted erosion at the head of the middle phalanx is unchanged from prior. 3. Mild degenerative changes at of the interphalangeal joint of the first finger. Possible central erosions at the distal interphalangeal joint of the fifth finger may represent early erosive osteoarthritis. Electronically signed by: Sarthak Elizabeth M.D. 07/06/2017 8:43 AM Dictated Date/Time: 07/06/2017 8:39 AM
== END | disposition home or self-care (01) ==
LOC: C.RAD 08:02
PROVIDERS: ATTEND Emergency Medicine
DX: S61.209A Unspecified open wound of unspecified finger without damage to nail, initial encounter (principal); X58.XXXA Exposure to other specified factors, initial encounter

== ENCOUNTER → 2017-07-18 | Outpatient (CLI) | payer OTHER, MEDICARE ==
--- NOTE | 2017-07-18 14:40 | DIAGNOSTIC IMAGING REPORT ---
RIGHT SHOULDER 3 VIEWS CLINICAL HISTORY: Right shoulder strain. FINDINGS: 3 views of the right shoulder are obtained. No prior studies are available for comparison at the time of dictation. The skeletal structures are osteopenic. No fracture or dislocation is seen. Advanced arthritic change is present in the greater tuberosity of the humeral head with bony overgrowth, sclerosis, and subchondral cyst formation. Mild productive change is seen at the acromioclavicular joint. The overlying soft tissues are normal in appearance. A stent is present in the right upper chest. Atelectasis is present at the right lung base. A cardiac pacemaker lead is noted. IMPRESSION: Osteopenia and arthritic change as above. No fracture or dislocation is identified in the right shoulder. Electronically signed by: Garry Milian M.D. 07/18/2017 2:39 PM Dictated Date/Time: 07/18/2017 2:37 PM
== END | disposition home or self-care (01) ==
LOC: C.LABPVFM 14:03
PROVIDERS: ATTEND Family Medicine
DX: S46.911A Strain of unspecified muscle, fascia and tendon at shoulder and upper arm level, right arm, initial encounter (principal); X58.XXXA Exposure to other specified factors, initial encounter

== ENCOUNTER 2017-09-20 16:46 | Inpatient (IN) | payer OTHER, MEDICARE ==
[~2017-09-20] VITALS: Ht 177.8 cm; Wt 148.7 kg
[2017-09-20] MEDS ORDERED: VANCOMYCIN INJ 2,500 MG in SODIUM CHLORIDE 0.9% 250ML 250 ML IV STA (17:41)
[2017-09-20] MEDS ORDERED: NVLG SQ (17:56)
[2017-09-20] MEDS ORDERED: GABA-112 PO (17:56)
[2017-09-20 18:01] LABS: BASO % 0.4 %; BASO ABS # 0.03 K/uL (0-0.2); COMPLETE YES; EOS % 2.5 %; IG% 0.2 %; LYMPH % 11.1 %; MEAN CELL VOLUME 98.8 fL (80-100); MEAN CORPUSCULAR HGB CONC 29.4 g/dl (32-36); MEAN PLATELET VOLUME 9.9 fL (7.4-10.4); MONO % 6.9 %; NEUT % 78.9 %; PLATELET COUNT 232 K/uL (130-400); RED BLOOD COUNT 3.34 M/uL (4.7-6.1); WHITE BLOOD COUNT 8.09 K/uL (4.8-10.8)
--- NOTE | 2017-09-20 18:05 | DIAGNOSTIC IMAGING REPORT ---
L FOOT MIN 3 VIEWS ROUTINE HISTORY: 72 years-old Male L foot 5th MTP w/ ulcer chronic ulcer of the left foot near the fifth MTP joint. History of diabetes. COMPARISON: Left foot radiographs 06/06/2017 TECHNIQUE: 3 views of the left foot FINDINGS: Peripheral vascular disease. Extensive soft tissue calcifications are seen within the distribution of the posterior calf and Achilles tendon. The bones are moderately demineralized which limits evaluation for acute nondisplaced fracture. There is extension of the metatarsophalangeal joints with mild flexion of the interphalangeal joints. Moderate metatarsophalangeal, interphalangeal and midfoot degenerative changes are noted. Remote fracture deformities of the second through fifth metatarsal necks. No acute fracture or dislocation identified. Moderate soft tissue swelling of the lateral forefoot centered about the fifth MTP joint. No definite bony erosive changes identified at this time to suggest osteomyelitis. IMPRESSION: 1. Moderate soft tissue swelling of the lateral forefoot centered about the first MTP joint. No definite erosive changes identified at this time to suggest acute osteomyelitis. If of further clinical concern, follow-up MRI should be considered. 2. Moderate bone demineralization limits evaluation for acute bony abnormality. 3. Multifocal degenerative changes as above. 4. Remote fracture deformities of the second through fifth metatarsals. 5. Peripheral vascular disease. The above report was generated using voice recognition software. It may contain grammatical, syntax or spelling errors. Electronically signed by: Diogo Gallegos M.D. 09/20/2017 6:04 PM Dictated Date/Time: 09/20/2017 5:59 PM
[2017-09-20] MEDS ORDERED: ERTAPENEM 1 GM ADDVIAL IV ONE (18:15)
[2017-09-20] MEDS ORDERED: ERTAPENEM IV 500 MG in SODIUM CHLORIDE 0.9% 50 ML IV SCH (18:16)
[2017-09-20 18:17] LABS: BLOOD UREA NITROGEN 19 mg/dl (7-18); CALCIUM 7.7 mg/dl (8.5-10.1); CARBON DIOXIDE 36 mmol/L (21-32); CHLORIDE 94 mmol/L (98-107); CREATININE 3.16 mg/dl (0.60-1.40); GLUCOSE 146 mg/dl (70-99); POTASSIUM 3.8 mmol/L (3.5-5.1); SODIUM 134 mmol/L (136-145)
[2017-09-20] MEDS ORDERED: ACETAMINOPHEN 325 MG TAB PO PRN (19:30)
[2017-09-20 19:38] LABS: AST/SGOT 14 U/L (15-37)
[2017-09-20 19:44] LABS: ALKALINE PHOSPHATASE 72 U/L (45-117); ALT/SGPT 22 U/L (12-78)
[2017-09-20] MEDS ORDERED: GLUCOSE 10 TABS/TUBE PO PRN (20:30)
[2017-09-20] MEDS ORDERED: GLUCAGON FOR INJ 1 MG VIAL SQ PRN (20:30)
[2017-09-20] MEDS ORDERED: DEXTROSE 50% 50 ML SYR IV PRN (20:30)
[2017-09-20] MEDS ORDERED: GLUCOSE 40% GEL 15 GM TUBE PO PRN (20:30)
[2017-09-20 21:02] VITALS: BP 92/55; PULSE 71; TEMP 36.8; O2SAT 99; Ht 177.8 cm; Wt 148.7 kg
[2017-09-20] MEDS: SIMVASTATIN 40 MG TAB PO SCH (21:44)
[2017-09-20] MEDS: INSULIN ASPART 100 UNITS/ML 3 ML PEN SC SCH (21:49)
[2017-09-20] MEDS ORDERED: NURSING VERBAL MED ORDER ONE ×2 (22:00→23:00)
[2017-09-20] MEDS: CALCIUM ACETATE 667MG GELCAP PO PRN (22:10)
--- NOTE | 2017-09-20 22:14 | EMERGENCY ROOM VISIT NOTE ---
History Report prepared by Hue: Chioma Burt Under the Supervision of: Dr. Jose Dc D.O. First contact with patient: 17:04 Chief Complaint: INFECTION Stated Complaint: INFECTION IN LEFT FOOT History of Present Illness The patient is a 72 year old male who presents to the Emergency Room with complaints of a constant infection on the bottom of his left foot today. He states that he saw his doctor at 0900 today, and was told he needed IV antibiotics. He reports that he had dialysis today, which is why he was unable to come to the ED earlier. The patient states that he has been treated at the wound clinic for the last 3 weeks. He states that he is on 4L of oxygen at home. Pt denies fevers, chest pain, shortness of breath, nausea, vomiting, diarrhea. Source of History: patient Onset: today Position: foot (left) Quality: other (infection ) Timing: constant Associated Symptoms: No fevers, No chest pain, No SOB, No nausea, No vomiting, No diarrhea Review of Systems See HPI for pertinent positives & negatives. A total of 10 systems reviewed and were otherwise negative. Past Medical & Surgical Medical Problems: (1) Acute exacerbation of CHF (congestive heart failure) (2) Atrial fibrillation with slow ventricular response (3) Cellulitis of left foot (4) CONGESTIVE HEART FAILURE NOS (5) DIAB W OTH SPEC MANIFEST, TYPE II OR UNSPEC TYPE, NOT UNCNTR (6) Diabetes (7) diabetic foot infectoin (8) Diabetic foot ulcer (9) Diabetic peripheral neuropathy associated with type 2 diabetes mellitus (10) Edema (11) Loss of sensation (12) MAL [place] BLADDER-TRIGONE (13) MORBID OBESITY (14) Obstructive sleep apnea (15) Peripheral vascular disease (16) RENAL FAILURE NOS (17) SIRS (systemic inflammatory response syndrome) Family History Patient reports no known family medical history. Social History Smoking Status: Never Smoker Alcohol Use: none Drug Use: none Marital Status: Housing Status: lives with family Occupation Status: retired Current/Historical Medications Scheduled Allopurinol (Zyloprim), 100 MG PO QAM Aspirin (Aspirin Ec), 81 MG PO QAM Calcium Acetate (Phoslo 667 Mg), 4 TABS PO TIDM Calcium Acetate (Phoslo 667 Mg), 2 CAP PO UD Cinacalcet (Sensipar), 60 MG PO DAILY Gabapentin (Neurontin), 100 MG PO DAILY Home O2 Therapy (Oxygen), 4 LITERS NA CONTINOUS Insulin Aspart (Novolog), UNITS SQ ACHS Insulin Glargine (Toujeo Solostar), 60 UNITS SC QAM Levothyroxine Sodium (Levothyroxine Sodium), 50 MCG PO DAILYBB Multiple Vitamins W/ Minerals (Therems M), 1 TAB PO QAM Polyethylene Glycol 3350 (Miralax), 17 GM PO QAM Simvastatin (Zocor), 40 MG PO QPM Warfarin Sodium (Coumadin), 5 MG PO HS Scheduled PRN Acetaminophen (Tylenol), 650 MG PO Q6 PRN for Pain or Fever Allergies Coded Allergies: No Known Allergies (Verified , 09/20/17) Physical Exam Vital Signs Date Time Temp Pulse Resp B/P (MAP) Pulse Ox O2 Delivery O2 Flow Rate FiO2 09/20/17 18:53 77 20 85/43 96 Room Air 09/20/17 18:22 77 09/20/17 18:10 77 18 82/44 99 Nasal Cannula 4.0 09/20/17 16:57 36.9 72 18 95 Nasal Cannula 3.0 Physical Exam GENERAL: Sitting in wheelchair, alert, chronically ill-appearing, morbidly obese , no distress, non-toxic, nasal cannula in place EYE EXAM: normal conjunctiva. OROPHARYNX: no exudate, no erythema, lips, buccal mucosa, and tongue normal and mucous membranes are moist NECK: supple, no nuchal rigidity, no adenopathy, non-tender LUNGS: Clear to auscultation. Normal chest wall mechanics. Distal breath sounds. HEART: systolic ejection murmur, S1 normal and S2 normal ABDOMEN: abdomen soft, non-tender, normo-active bowel sounds, no masses, no rebound or guarding. BACK: Back is symmetrical on inspection and there is no deformity, no midline tenderness, no CVA tenderness. SKIN: no rashes and no bruising UPPER EXTREMITIES: fistula in right upper extremity LOWER EXTREMITIES: No pitting edema. 2 cm by 2 cm with palpable bone at distal portion of 5th MTP on plantar surface and surrounding erythema around distal arch of left foot. Small 1 cm by 1 cm distal fifth MTP ulcer on dorsal surface of right foot. NEURO EXAM: Normal sensorium, cranial nerves II-XII grossly intact, normal speech, no gross weakness of arms, no gross weakness of legs. Medical Decision & Procedures ER Provider Diagnostic Interpretation: Radiology results as stated below per my review and the radiologist's interpretation: L FOOT MIN 3 VIEWS ROUTINE HISTORY: 72 years-old Male L foot 5th MTP w/ ulcer chronic ulcer of the left foot near the fifth MTP joint. History of diabetes. COMPARISON: Left foot radiographs 06/06/2017 TECHNIQUE: 3 views of the left foot FINDINGS: Peripheral vascular disease. Extensive soft tissue calcifications are seen within the distribution of the posterior calf and Achilles tendon. The bones are moderately demineralized which limits evaluation for acute nondisplaced fracture. There is extension of the metatarsophalangeal joints with mild flexion of the interphalangeal joints. Moderate metatarsophalangeal, interphalangeal and midfoot degenerative changes are noted. Remote fracture deformities of the second through fifth metatarsal necks. No acute fracture or dislocation identified. Moderate soft tissue swelling of the lateral forefoot centered about the fifth MTP joint. No definite bony erosive changes identified at this time to suggest osteomyelitis. IMPRESSION: 1. Moderate soft tissue swelling of the lateral forefoot centered about the first MTP joint. No definite erosive changes identified at this time to suggest acute osteomyelitis. If of further clinical concern, follow-up MRI should be considered. 2. Moderate bone demineralization limits evaluation for acute bony abnormality. 3. Multifocal degenerative changes as above. 4. Remote fracture deformities of the second through fifth metatarsals. 5. Peripheral vascular disease. The above report was generated using voice recognition software. It may contain grammatical, syntax or spelling errors. Electronically signed by: Diogo Gallegos M.D. 09/20/2017 6:04 PM Dictated Date/Time: 09/20/2017 5:59 PM Laboratory Results 09/20/17 17:35 Red Blood Count 3.34, Mean Corpuscular Volume 98.8, Mean Corpuscular Hemoglobin 29.0, Mean Corpuscular Hemoglobin Concent 29.4, Mean Platelet Volume 9.9, Neutrophils (%) (Auto) 78.9, Lymphocytes (%) (Auto) 11.1, Monocytes (%) (Auto) 6.9, Eosinophils (%) (Auto) 2.5, Basophils (%) (Auto) 0.4, Neutrophils # (Auto) 6.38, Lymphocytes # (Auto) 0.90, Monocytes # (Auto) 0.56, Eosinophils # (Auto) 0.20, Basophils # (Auto) 0.03 09/20/17 17:35 Test 09/20/17 17:35 White Blood Count 8.09 K/uL (4.8-10.8) Red Blood Count 3.34 M/uL (4.7-6.1) Hemoglobin 9.7 g/dL (14.0-18.0) Hematocrit 33.0 % (42-52) Mean Corpuscular Volume 98.8 fL (80-100) Mean Corpuscular Hemoglobin 29.0 pg (25-34) Mean Corpuscular Hemoglobin Concent 29.4 g/dl (32-36) Platelet Count 232 K/uL (130-400) Mean Platelet Volume 9.9 fL (7.4-10.4) Neutrophils (%) (Auto) 78.9 % Lymphocytes (%) (Auto) 11.1 % Monocytes (%) (Auto) 6.9 % Eosinophils (%) (Auto) 2.5 % Basophils (%) (Auto) 0.4 % Neutrophils # (Auto) 6.38 K/uL (1.4-6.5) Lymphocytes # (Auto) 0.90 K/uL (1.2-3.4) Monocytes # (Auto) 0.56 K/uL (0.11-0.59) Eosinophils # (Auto) 0.20 K/uL (0-0.5) Basophils # (Auto) 0.03 K/uL (0-0.2) RDW Standard Deviation 64.3 fL (36.4-46.3) RDW Coefficient of Variation 17.8 % (11.5-14.5) Immature Granulocyte % (Auto) 0.2 % Immature Granulocyte # (Auto) 0.02 K/uL (0.00-0.02) Anion Gap 5.0 mmol/L (3-11) Est Creatinine Clear Calc Drug Dose 30.5 ml/min Estimated GFR () 21.6 Estimated GFR (Non- 18.6 BUN/Creatinine Ratio 6.0 (10-20) Calcium Level 7.7 mg/dl (8.5-10.1) Total Bilirubin 0.2 mg/dl (0.2-1) Direct Bilirubin < 0.1 mg/dl (0-0.2) Aspartate Amino Transf (AST/SGOT) 14 U/L (15-37) Alanine Aminotransferase (ALT/SGPT) 22 U/L (12-78) Alkaline Phosphatase 72 U/L (45-117) Total Protein 7.4 gm/dl (6.4-8.2) Albumin 3.3 gm/dl (3.4-5.0) Laboratory results per my review. Medications Administered Medications (Trade) Dose Ordered Sig/[place] Route Start Time Stop Time Status Last Admin Dose Admin Vancomycin HCl 2500 mg/Sodium Chloride 300 ml @ 125 mls/hr NOW STAT IV 09/20/17 17:41 09/20/17 20:04 DC 09/20/17 18:48 125 MLS/HR Ertapenem 500 mg/ Sodium Chloride 55 ml @ 110 mls/hr TODAY@1816 IV 09/20/17 18:16 09/20/17 18:45 DC 09/20/17 21:43 110 MLS/HR ED Course ED COURSE: Vital signs were reviewed and showed [] The patients medical record was reviewed The above diagnostic studies were performed and reviewed. ED treatments and interventions as stated above. 1702: The patient was evaluated in room B9. A complete history and physical examination was performed. 1741: Ordered Vancomycin HCl 2,500 mg/Sodium Chloride 300 ml @ 125 mls/hr IV. 1815: Ordered Ertapenem 500 mg/Sodium Chloride 55 ml @ 110 mls/hr IV. 9:: Upon reevaluation, the patient is resting. I discussed the findings and the treatment plan with the patient. He expresses agreement and understanding. I spoke with Dr. Marshall of the [facility]. He will be evaluated for further management. Medical Decision Differential diagnosis: Etiologies such as cellulitis, abscess, MRSA infection, DVT, necrotizing fasciitis, dermatitis, drug eruption, as well as others were entertained. Patient is a 72-year-old male referred in by infectious disease for worsening ulcer on his bilateral feet. He has been on oral antibiotics as an outpatient with worsening symptoms. Patient has no other complaints at this time. He didn 't pursue a full course of dialysis earlier today. Labs show a mild anemia. CBC along with BMP, LFTs was fairly unremarkable for this patient as he does receive dialysis. X-ray shows no osteomyelitis. Patient was given IV vancomycin and admitted to internal medicine per request of infectious disease. Medication Reconcilliation Current Medication List: was personally reviewed by me Blood Pressure Screening Patient's blood pressure: Low blood pressure Consults Time Called: 1729 Consulting Physician: Dr. Marshall- [facility] Returned Call: [phone] I reviewed the patient's case with Dr. Marshall. She will evaluate the patient for further management. Impression Primary Impression: Infected ulcer of skin Additional Impression: Anemia Scribe Attestation The scribe's documentation has been prepared under my direction and personally reviewed by me in its entirety. I confirm that the note above accurately reflects all work, treatment, procedures, and medical decision making performed by me. Departure Information Dispostion Being Evaluated By Hospitalist Referrals Marty Mariano M.D. (PCP) Patient Instructions My [facility] Problem Qualifiers Primary Impression: Infected ulcer of skin Non-pressure ulcer stage: unspecified non-pressure ulcer stage Qualified Codes: L98.499 - Non-pressure chronic ulcer of skin of other sites with unspecified severity; L08.9 - Local infection of the skin and subcutaneous tissue, unspecified Additional Impression: Anemia Anemia type: unspecified type Qualified Codes: D64.9 - Anemia, unspecified
[2017-09-20 22:24] LABS: INR 1.8 (0.9-1.1); PROTHROMBIN TIME (PATIENT) 18.6 SECONDS (9.0-12.0)
[2017-09-20] MEDS ORDERED: CALCIUM ACETATE 667MG GELCAP PO PRN (22:45)
[2017-09-20 23:15] VITALS: BP 73/38; PULSE 75; TEMP 36.7; O2SAT 98
[2017-09-20] MEDS ORDERED: ERTAPENEM IV 1 GM in SODIUM CHLOR 0.9% AD-VAN 50ML 50 ML IV SCH (23:15)
[2017-09-20 23:30] VITALS: BP 89/53; PULSE 73
[2017-09-20] MEDS ORDERED: ERTAPENEM CONSULT ACTIVE PRN (23:30)
[2017-09-20] MEDS ORDERED: VANCOMYCIN CONSULT ACTIVE PRN (23:30)
--- NOTE | 2017-09-20 23:32 | History and Physical ---
History & Physical Date & Time of Service: Sep 20, 2017 at 23:05 Chief Complaint: Cellulitis Of Left Foot Primary Care Physician: No Doctor, Assigned History of Present Illness Source: patient This is a 72 yo m with ESRD on HD, DMII, PAD, A fibb and HTN that is presenting to us with a worsening foot ulcer on his left lower extremity. The patient was admitted in mid may for a non healing wound on his left foot. The patient was treated with Vanco and Zosyn and transitioned to Keflex and has been following with ID and wound since the admission. The patient has had worsening in his ulceration over the past three weeks and when he went to follow up with Dr Raymond today and he was sent to the ED for evaluation. Recommendation was for treatment with Ertapenem. The patient states that it is not a painful however he has had worsening drainage from the site. The patient denies any abdominal pain, chest pain, SOB. He typically requires a walker in order to ambulate or his wheelchair. Past Medical/Surgical History ESRD on HD since 2007 HTN/HLD DMII PAD Diabetic retinopathy/ neuropathy Chronic non healing ulcer Family History Patient reports no known family medical history. Social History Smoking Status: Never Smoker Smokeless Tobacco Use: No Alcohol Use: none Drug Use: none Marital Status: Housing status: lives with family Occupational Status: retired Immunizations History of Influenza Vaccine: Unknown History of Tetanus Vaccine?: Unknown History of Pneumococcal: Unknown History of Hepatitis B Vaccine: Unknown Multi-Drug Resistant Organisms History of MDRO: No Allergies Coded Allergies: No Known Allergies (Verified , 09/20/17) Home Medications Scheduled Allopurinol (Zyloprim), 100 MG PO QAM Aspirin (Aspirin Ec), 81 MG PO QAM Calcium Acetate (Phoslo 667 Mg), 4 TABS PO TIDM Calcium Acetate (Phoslo 667 Mg), 2 CAP PO UD Cinacalcet (Sensipar), 60 MG PO DAILY Gabapentin (Neurontin), 100 MG PO DAILY Home O2 Therapy (Oxygen), 4 LITERS NA CONTINOUS Insulin Aspart (Novolog), UNITS SQ ACHS Insulin Glargine (Toujeo Solostar), 60 UNITS SC QAM Levothyroxine Sodium (Levothyroxine Sodium), 50 MCG PO DAILYBB Multiple Vitamins W/ Minerals (Therems M), 1 TAB PO QAM Polyethylene Glycol 3350 (Miralax), 17 GM PO QAM Simvastatin (Zocor), 40 MG PO QPM Warfarin Sodium (Coumadin), 5 MG PO HS Scheduled PRN Acetaminophen (Tylenol), 650 MG PO Q6 PRN for Pain or Fever Review of Systems Constitutional: No fever, No chills, No sweats Eyes: No worsening of vision ENT: No hearing loss Respiratory: No cough, No sputum, No wheezing, No shortness of breath, No dyspnea on exertion, No dyspnea at rest Cardiovascular: No chest pain Abdomen: No pain, No nausea, No vomiting, No diarrhea, No constipation, No GI bleeding Musculoskeletal: + problem reported (ambulatory dysfunction), No joint pain, No muscle pain Neurologic: + weakness, + balance problems, No numbness/tingling Psychiatric: No depression symptoms Endocrine: + fatigue Hematologic / Lymphatic: No abnormal bleeding/bruising Integumentary: + color change, + bleeding Physical Exam Vital Signs Date Time Temp Pulse Resp B/P (MAP) Pulse Ox O2 Delivery O2 Flow Rate FiO2 09/20/17 21:02 36.8 71 18 92/55 99 Nasal Cannula 4.0 09/20/17 20:08 71 18 96 09/20/17 18:53 77 20 85/43 96 Room Air 09/20/17 18:22 77 09/20/17 18:10 77 18 82/44 99 Nasal Cannula 4.0 09/20/17 16:57 36.9 72 18 95 Nasal Cannula 3.0 General Appearance: no apparent distress, + obese, + pertinent finding (poorly kept) Head: normocephalic, atraumatic Eyes: normal inspection ENT: normal ENT inspection, + pertinent finding (poor dentition) Neck: supple Respiratory/Chest: normal breath sounds, no respiratory distress, no accessory muscle use, + decreased breath sounds (bilat bases) Cardiovascular: regular rate, rhythm, + systolic murmur (2-3/6), + pertinent finding (unable to palpate peripheral pulses , pacer left chest) Abdomen/GI: normal bowel sounds, non tender, soft Back: normal inspection Extremities/Musculoskelatal: + pertinent finding (statis dermatitis, changes reflective of Charcot joints ) Neurologic/Psych: alert, normal mood/affect, oriented x 3 Skin: normal color, warm/dry, no rash Lymphatic: no adenopathy Diagnostics Laboratory Results Results Past 24 Hours Test 09/20/17 17:35 09/20/17 21:32 Range/Units White Blood Count 8.09 4.8-10.8 K/uL Red Blood Count 3.34 4.7-6.1 M/uL Hemoglobin 9.7 14.0-18.0 g/dL Hematocrit 33.0 42-52 % Mean Corpuscular Volume 98.8 80-100 fL Mean Corpuscular Hemoglobin 29.0 25-34 pg Mean Corpuscular Hemoglobin Concent 29.4 32-36 g/dl Platelet Count 232 130-400 K/uL Mean Platelet Volume 9.9 7.4-10.4 fL Neutrophils (%) (Auto) 78.9 % Lymphocytes (%) (Auto) 11.1 % Monocytes (%) (Auto) 6.9 % Eosinophils (%) (Auto) 2.5 % Basophils (%) (Auto) 0.4 % Neutrophils # (Auto) 6.38 1.4-6.5 K/uL Lymphocytes # (Auto) 0.90 1.2-3.4 K/uL Monocytes # (Auto) 0.56 0.11-0.59 K/uL Eosinophils # (Auto) 0.20 0-0.5 K/uL Basophils # (Auto) 0.03 0-0.2 K/uL RDW Standard Deviation 64.3 36.4-46.3 fL RDW Coefficient of Variation 17.8 11.5-14.5 % Immature Granulocyte % (Auto) 0.2 % Immature Granulocyte # (Auto) 0.02 0.00-0.02 K/uL Prothrombin Time 18.6 9.0-12.0 SECONDS Prothromb Time International Ratio 1.8 0.9-1.1 Sodium Level 134 136-145 mmol/L Potassium Level 3.8 3.5-5.1 mmol/L Chloride Level 94 98-107 mmol/L Carbon Dioxide Level 36 21-32 mmol/L Anion Gap 5.0 3-11 mmol/L Blood Urea Nitrogen 19 7-18 mg/dl Creatinine 3.16 0.60-1.40 mg/dl Est Creatinine Clear Calc Drug Dose 30.5 ml/min Estimated GFR () 21.6 Estimated GFR (Non- 18.6 BUN/Creatinine Ratio 6.0 10-20 Random Glucose 146 70-99 mg/dl Calcium Level 7.7 8.5-10.1 mg/dl Total Bilirubin 0.2 0.2-1 mg/dl Direct Bilirubin < 0.1 0-0.2 mg/dl Aspartate Amino Transf (AST/SGOT) 14 15-37 U/L Alanine Aminotransferase (ALT/SGPT) 22 12-78 U/L Alkaline Phosphatase 72 45-117 U/L Total Protein 7.4 6.4-8.2 gm/dl Albumin 3.3 3.4-5.0 gm/dl Bedside Glucose 189 70-99 mg/dl Diagnostic Radiology [~ rep ct add3]] L FOOT MIN 3 VIEWS ROUTINE HISTORY: 72 years-old Male L foot 5th MTP w/ ulcer chronic ulcer of the left foot near the fifth MTP joint. History of diabetes. COMPARISON: Left foot radiographs 06/06/2017 TECHNIQUE: 3 views of the left foot FINDINGS: Peripheral vascular disease. Extensive soft tissue calcifications are seen within the distribution of the posterior calf and Achilles tendon. The bones are moderately demineralized which limits evaluation for acute nondisplaced fracture. There is extension of the metatarsophalangeal joints with mild flexion of the interphalangeal joints. Moderate metatarsophalangeal, interphalangeal and midfoot degenerative changes are noted. Remote fracture deformities of the second through fifth metatarsal necks. No acute fracture or dislocation identified. Moderate soft tissue swelling of the lateral forefoot centered about the fifth MTP joint. No definite bony erosive changes identified at this time to suggest osteomyelitis. IMPRESSION: 1. Moderate soft tissue swelling of the lateral forefoot centered about the first MTP joint. No definite erosive changes identified at this time to suggest acute osteomyelitis. If of further clinical concern, follow-up MRI should be considered. 2. Moderate bone demineralization limits evaluation for acute bony abnormality. 3. Multifocal degenerative changes as above. 4. Remote fracture deformities of the second through fifth metatarsals. 5. Peripheral vascular disease. Impression Assessment and Plan This is a 72 yo m with ESRD, PAF, HTN, DMII, PAD with a non healing ulcer on the left foot concerning for osteomyelitis Left foot non healing ulceration, concern for osteomyelitis - MRI to assess for osteo - based on results can consider a possible surgical consult - consult ID - continue Ertapenem and Vanco renally dosed ESRD on HD - consult nephro for HD - Phoslo 4 tab tid and 2 tabs UD - continue Sensipar 60 mg daily PAF on warfarin/ Pacemaker for vanessa - for now will continue on the Warfarin as unsure if patient will require any intervention Sleep Apnea/ Obesity - BL is 4 L of O2 - patient was on CPAP on previous admission however patient is refusing now HTN/ Hyperlipidemia -last echo was May 2017 * Left ventricular systolic function is normal. * No regional wall motion abnormalities noted. * Ejection Fraction = 60-65%. * There is moderate concentric left ventricular hypertrophy. * Moderate to severe valvular aortic stenosis. * There is mild mitral stenosis. - continue ASA 81 mg - continue Simvastatin 40 mg DMII - on 60 units of Toujeo - will change to 40 unit of Lantus and monitor - Insulin sliding scale - bSG Ac HS PAD/ peripheral diabetic neuropathy - continue gabapentin 100 mg - fall risk Gout - allopurinol 100 mg Hypothyroidism Synthroid 50 mcg DVT Prophyaxis warfarin Attending addendum: I have physically seen this patient, have supervised the medical residents activities, and agree with the H&P unless as otherwise noted. Assessment and Plan: Left lower extremity infection/referred by infectious disease Dr. Raymond for admission/concern for possible osteomyelitis-- Vancomycin IV and ertapenem IV. MRI of lower extremity to assess for possible osteomyelitis Consult infectious disease End-stage renal disease on hemodialysis-- Consult nephrology Continue outpatient dosing of PhosLo and Sensipar Paroxysmal atrial fibrillation/pacemaker/hypertension-- Continue aspirin and warfarin. Diabetes mellitus-- Outpatient dosing of Toujeo 60 units will be decreased to 40 units of Lantus inpatient due to decreased oral intake expected in hospital Place on Accu-Cheks before meals and at bedtime with NovoLog coverage per scale Check a hemoglobin A1c PAD-- Check lower extremity arterial Dopplers Hyperlipidemia-- continue simvastatin 40 mg and check a fasting lipid panel Peripheral neuropathy-- Continue gabapentin Hypothyroidism-- Continue Synthroid 50 g daily Gout-- Continue haloperidol 100 mg daily Level of Care Med/Surg Advanced Directives Existing Advance Directive: No Existing Living Will: No Existing 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 Y/N: Yes Risk Level: Moderate Given or contraindicated: Warfarin (Coumadin) Social Service Consult None Apply Note Total Time: Critical Care 30 - 74 minutes
[2017-09-20] MEDS: WARFARIN SOD 5 MG TAB PO SCH (23:37)
[2017-09-20] MEDS: CINACALCET HCL 60 MG PO SCH (23:37)
[2017-09-20 23:46] LABS: INR 1.8 (0.9-1.1); PARTIAL THROMBOPLASTIN RATIO 1.5; PROTHROMBIN TIME (PATIENT) 18.7 SECONDS (9.0-12.0)
[2017-09-21 06:18] LABS: BASO % 0.4 %; BASO ABS # 0.03 K/uL (0-0.2); COMPLETE YES; EOS % 2.7 %; IG% 0.2 %; LYMPH % 5.9 %; LYMPH ABS # 0.48 K/uL (1.2-3.4); MEAN CELL VOLUME 99.4 fL (80-100); MEAN CORPUSCULAR HEMOGLOBIN 28.9 pg (25-34); MEAN CORPUSCULAR HGB CONC 29.1 g/dl (32-36); MEAN PLATELET VOLUME 9.8 fL (7.4-10.4); NEUT % 85.8 %; PLATELET COUNT 233 K/uL (130-400); RED BLOOD COUNT 3.22 M/uL (4.7-6.1); WHITE BLOOD COUNT 8.15 K/uL (4.8-10.8)
[2017-09-21 06:28] LABS: INR 1.7 (0.9-1.1); PROTHROMBIN TIME (PATIENT) 18.1 SECONDS (9.0-12.0)
[2017-09-21] MEDS: LEVOTHYROXINE 50 MCG TAB PO SCH (06:37)
[2017-09-21 06:47] LABS: BUN/CREATININE RATIO 6.5 (10-20); CALCIUM 7.8 mg/dl (8.5-10.1); CREATININE 4.36 mg/dl (0.60-1.40); POTASSIUM 4.3 mmol/L (3.5-5.1)
[2017-09-21 07:42] VITALS: BP 78/47; PULSE 75; TEMP 37.3; O2SAT 97
[2017-09-21] MEDS ORDERED: INSULIN GLARGINE SOLOSTAR 100 UNITS/ML 3 ML PEN SC SCH (08:00)
[2017-09-21] MEDS ORDERED: GABAPENTIN 100 MG CAP PO SCH (08:00)
[2017-09-21] MEDS ORDERED: CINACALCET HCL 60 MG PO SCH (08:00)
[2017-09-21] MEDS ORDERED: VANCOMYCIN INJ 1,000 MG in SODIUM CHLORIDE 0.9% 250ML 250 ML IV SCH (09:00)
[2017-09-21] MEDS: POLYETHYLENE (MIRALAX) 17 GM PACK PO SCH (09:15)
[2017-09-21] MEDS: CALCIUM ACETATE 667MG GELCAP PO SCH ×3 (09:17→17:43)
[2017-09-21] MEDS: ASPIRIN 81 MG ECTAB PO SCH (09:17)
[2017-09-21] MEDS: CEROVITE ADV FORMULA TAB PO SCH (09:18)
[2017-09-21] MEDS: ALLOPURINOL 100 MG TAB PO SCH (09:19)
[2017-09-21] MEDS: INSULIN ASPART 100 UNITS/ML 3 ML PEN SC SCH ×4 (09:38→21:12)
[2017-09-21] MEDS ORDERED: NURSING VERBAL MED ORDER ONE (10:00)
--- NOTE | 2017-09-21 10:32 | Medical Consult ---
Consultation Date of Consultation: Sep 21, 2017. Attending Physician: Jose Garcia D.O. Reason for Consultation: Left foot ulcer, duration of ertapenem therapy History of Present Illness 72-year-old male, well known to me from follow-up at the [facility], with complicated past medical history including end-stage renal disease on dialysis, diabetes mellitus, and severe peripheral vascular disease, who has been followed at the [facility] for bilateral foot ulcerations. He was seen yesterday in follow-up, and was noted to have worsening ulceration of his left foot, with enlargement of the open wound and ability to probe almost to bone. Has had culture done which has grown an ESBL producing E coli. He denies any associated fever or chills, has had some increase in shortness of breath. He was recommended admission to the hospital for IV antibiotic management. Currently on vancomycin and ertapenem as discussed. Past Medical/Surgical History Medical Problems: (1) Ambulatory dysfunction Status: Acute (2) Anemia Status: Acute (3) Failure of outpatient treatment Status: Acute (4) Febrile illness Status: Acute (5) Infected ulcer of skin Status: Acute (6) Infection of right foot Status: Acute (7) Infection of right hand Status: Acute (8) Leukocytosis Status: Acute (9) Superficial injury of right index finger with infection Status: Acute (10) Ulcers of both lower extremities Status: Acute Medical Problems: (1) Acute exacerbation of CHF (congestive heart failure) (2) Atrial fibrillation with slow ventricular response (3) Cellulitis of left foot (4) CONGESTIVE HEART FAILURE NOS (5) DIAB W OTH SPEC MANIFEST, TYPE II OR UNSPEC TYPE, NOT UNCNTR (6) Diabetes (7) diabetic foot infectoin (8) Diabetic foot ulcer (9) Diabetic peripheral neuropathy associated with type 2 diabetes mellitus (10) Edema (11) Loss of sensation (12) MAL [place] BLADDER-TRIGONE (13) MORBID OBESITY (14) Obstructive sleep apnea (15) Peripheral vascular disease (16) RENAL FAILURE NOS (17) SIRS (systemic inflammatory response syndrome) Family History Patient reports no known family medical history. Social History Smoking Status: Never Smoker Smokeless Tobacco Use: No Alcohol Use: none Drug Use: none Marital Status: Housing Status: lives with family Occupation Status: retired Allergies Coded Allergies: No Known Allergies (Verified , 09/20/17) Current Inpatient Medications Current Inpatient Medications Medications (Trade) Dose Ordered Sig/[place] Route Start Time Stop Time Status Last Admin Dose Admin Acetaminophen (Tylenol Tab) 650 mg Q4H PRN PO 09/20/17 19:30 10/20/17 19:29 Allopurinol (Zyloprim Tab) 100 mg QAM PO 09/21/17 08:00 10/21/17 08:59 09/21/17 09:19 100 MG Aspirin (Ecotrin Tab) 81 mg QAM PO 09/21/17 08:00 10/21/17 08:59 09/21/17 09:17 81 MG Calcium Acetate (Phoslo Cap) 2,668 mg TIDM PO 09/21/17 08:00 10/21/17 07:59 09/21/17 09:17 2,668 MG Levothyroxine Sodium (Synthroid Tab) 50 mcg DAILYBB PO 09/21/17 06:30 10/21/17 06:59 09/21/17 06:37 50 MCG Multivitamins/ Minerals (Multivitamin W/ Minerals Tab) 1 tab QAM PO 09/21/17 08:00 10/21/17 08:59 09/21/17 09:18 1 TAB Polyethylene (Miralax Powder Packet) 17 gm QAM PO 09/21/17 08:00 10/21/17 08:59 09/21/17 09:15 17 GM Simvastatin (Zocor Tab) 40 mg QPM PO 09/20/17 21:00 10/20/17 20:59 09/20/17 21:44 40 MG Warfarin Sodium (Coumadin Tab) 5 mg HS PO 09/20/17 23:00 10/20/17 22:59 09/20/17 23:37 5 MG Insulin Aspart (novoLOG ASPART) SLIDING SCALE G... ACHS SC 09/20/17 21:00 10/20/17 20:59 09/21/17 09:38 3 UNITS Glucose (Glucose 40% Gel) 15-30 GRAMS 15 GRAMS... UD PRN PO 09/20/17 20:30 10/20/17 20:29 Glucose (Glucose Chew Tab) 4-8 Tablets 4 Tabl... UD PRN PO 09/20/17 20:30 10/20/17 20:29 Dextrose (Dextrose 50% 50ML Syringe) 25-50ML OF 50% DW IV FOR... UD PRN IV 09/20/17 20:30 10/20/17 20:29 Glucagon (Glucagon Inj) 1 mg UD PRN SQ 09/20/17 20:30 10/20/17 20:29 Calcium Acetate (Phoslo Cap) 2,001 mg UD PRN PO 09/20/17 22:15 10/20/17 22:14 09/20/17 22:10 2,001 MG Calcium Acetate (Phoslo Cap) 1,334 mg UD PRN PO 09/20/17 22:45 10/20/17 22:44 Cinacalcet (Sensipar) 60 mg HS PO 09/21/17 22:00 10/21/17 21:59 09/20/17 23:37 60 MG Ertapenem (Consult) 1 ea UD PRN N/A 09/20/17 23:30 10/20/17 23:29 Vancomycin HCl (Consult) 1 ea UD PRN N/A 09/20/17 23:30 10/20/17 23:29 Ertapenem 500 mg/ Sodium Chloride 55 ml @ 110 mls/hr DAILY@1999 IV 09/21/17 20:00 10/01/17 19:59 Gabapentin (Neurontin Cap) 100 mg HS PO 09/21/17 22:00 10/21/17 21:59 Miscellaneous Information (Order Awaiting Action) 1 ea QS N/A 09/21/17 16:00 10/21/17 15:59 Review of Systems Constitutional: No fever, No chills Eyes: No problem reported ENT: No problem reported Respiratory: + shortness of breath Cardiovascular: + edema Abdomen: No problem reported Musculoskeletal: + swelling Genitourinary - Male: No problem reported Neurologic: No problem reported Psychiatric: No problem reported Endocrine: No problem reported Hematologic / Lymphatic: No problem reported Integumentary: + new/changing skin lesions Allergic / Immunologic: No problem reported Physical Exam Date Time Temp Pulse Resp B/P (MAP) Pulse Ox O2 Delivery O2 Flow Rate FiO2 09/21/17 09:20 Nasal Cannula 4.0 09/21/17 07:42 37.3 75 18 78/47 (57) 97 Nasal Cannula 4.0 09/20/17 23:30 73 89/53 (65) 09/20/17 23:15 36.7 75 20 73/38 (50) 98 Nasal Cannula 4.0 09/20/17 21:02 36.8 71 18 92/55 99 Nasal Cannula 4.0 09/20/17 20:08 71 18 96 09/20/17 18:53 77 20 85/43 96 Room Air 09/20/17 18:22 77 09/20/17 18:10 77 18 82/44 99 Nasal Cannula 4.0 09/20/17 16:57 36.9 72 18 95 Nasal Cannula 3.0 General Appearance: WD/WN, no apparent distress, + obese Head: normocephalic, atraumatic Eyes: normal inspection, EOMI, sclerae normal ENT: normal ENT inspection, pharynx normal (The) Neck: supple, no adenopathy, thyroid normal, trachea midline Respiratory/Chest: chest non-tender, lungs clear, no respiratory distress, + decreased breath sounds Cardiovascular: regular rate, rhythm, no gallop, + systolic murmur Abdomen/GI: normal bowel sounds, non tender, soft, no organomegaly Back: normal inspection, no CVA tenderness Extremities/Musculoskelatal: + inflammation, + swelling Neurologic/Psych: alert, oriented x 3 Skin: normal color, no rash, + pertinent finding (Severe bilateral venous stasis disease bilaterally, open ulcers of both feet, left probe almost to bone) Lymphatic: no adenopathy Laboratory Results Last 24 Hours Test 09/20/17 17:35 09/20/17 21:32 09/20/17 23:17 09/21/17 05:45 White Blood Count 8.09 K/uL 8.15 K/uL Red Blood Count 3.34 M/uL 3.22 M/uL Hemoglobin 9.7 g/dL 9.3 g/dL Hematocrit 33.0 % 32.0 % Mean Corpuscular Volume 98.8 fL 99.4 fL Mean Corpuscular Hemoglobin 29.0 pg 28.9 pg Mean Corpuscular Hemoglobin Concent 29.4 g/dl 29.1 g/dl Platelet Count 232 K/uL 233 K/uL Mean Platelet Volume 9.9 fL 9.8 fL Neutrophils (%) (Auto) 78.9 % 85.8 % Lymphocytes (%) (Auto) 11.1 % 5.9 % Monocytes (%) (Auto) 6.9 % 5.0 % Eosinophils (%) (Auto) 2.5 % 2.7 % Basophils (%) (Auto) 0.4 % 0.4 % Neutrophils # (Auto) 6.38 K/uL 6.99 K/uL Lymphocytes # (Auto) 0.90 K/uL 0.48 K/uL Monocytes # (Auto) 0.56 K/uL 0.41 K/uL Eosinophils # (Auto) 0.20 K/uL 0.22 K/uL Basophils # (Auto) 0.03 K/uL 0.03 K/uL RDW Standard Deviation 64.3 fL 64.9 fL RDW Coefficient of Variation 17.8 % 17.8 % Immature Granulocyte % (Auto) 0.2 % 0.2 % Immature Granulocyte # (Auto) 0.02 K/uL 0.02 K/uL Prothrombin Time 18.6 SECONDS 18.7 SECONDS 18.1 SECONDS Prothromb Time International Ratio 1.8 1.8 1.7 Sodium Level 134 mmol/L 133 mmol/L Potassium Level 3.8 mmol/L 4.3 mmol/L Chloride Level 94 mmol/L 93 mmol/L Carbon Dioxide Level 36 mmol/L 34 mmol/L Anion Gap 5.0 mmol/L 6.0 mmol/L Blood Urea Nitrogen 19 mg/dl 28 mg/dl Creatinine 3.16 mg/dl 4.36 mg/dl Est Creatinine Clear Calc Drug Dose 30.5 ml/min 22.1 ml/min Estimated GFR () 21.6 14.6 Estimated GFR (Non- 18.6 12.6 BUN/Creatinine Ratio 6.0 6.5 Random Glucose 146 mg/dl 151 mg/dl Calcium Level 7.7 mg/dl 7.8 mg/dl Total Bilirubin 0.2 mg/dl Direct Bilirubin < 0.1 mg/dl Aspartate Amino Transf (AST/SGOT) 14 U/L Alanine Aminotransferase (ALT/SGPT) 22 U/L Alkaline Phosphatase 72 U/L Total Protein 7.4 gm/dl Albumin 3.3 gm/dl Bedside Glucose 189 mg/dl Activated Partial Thromboplast Time 38.9 SECONDS Partial Thromboplastin Ratio 1.5 L FOOT MIN 3 VIEWS ROUTINE HISTORY: 72 years-old Male L foot 5th MTP w/ ulcer chronic ulcer of the left foot near the fifth MTP joint. History of diabetes. COMPARISON: Left foot radiographs 06/06/2017 TECHNIQUE: 3 views of the left foot FINDINGS: Peripheral vascular disease. Extensive soft tissue calcifications are seen within the distribution of the posterior calf and Achilles tendon. The bones are moderately demineralized which limits evaluation for acute nondisplaced fracture. There is extension of the metatarsophalangeal joints with mild flexion of the interphalangeal joints. Moderate metatarsophalangeal, interphalangeal and midfoot degenerative changes are noted. Remote fracture deformities of the second through fifth metatarsal necks. No acute fracture or dislocation identified. Moderate soft tissue swelling of the lateral forefoot centered about the fifth MTP joint. No definite bony erosive changes identified at this time to suggest osteomyelitis. IMPRESSION: 1. Moderate soft tissue swelling of the lateral forefoot centered about the first MTP joint. No definite erosive changes identified at this time to suggest acute osteomyelitis. If of further clinical concern, follow-up MRI should be considered. 2. Moderate bone demineralization limits evaluation for acute bony abnormality. 3. Multifocal degenerative changes as above. 4. Remote fracture deformities of the second through fifth metatarsals. 5. Peripheral vascular disease. The above report was generated using voice recognition software. It may contain grammatical, syntax or spelling errors. Electronically signed by: Diogo Gallegos M.D. 09/20/2017 6:04 PM Assessment & Plan 72-year-old male with diabetes mellitus, peripheral vascular disease, severe venous stasis disease, now with worsening left foot ulceration with cultures positive for highly resistant E coli. Have recommended patient be treated with ertapenem and vancomycin pending further culture results. Would consider MRI or CT scan to better define left foot process. Length of IV antibiotics will depend on clinical response and finding on further scanning. Will follow.
[2017-09-21] MEDS: INSULIN GLARGINE 300 UNITS/ML INJ SC SCH (11:06)
[2017-09-21] MEDS ORDERED: SODIUM CHLORIDE 0.65% NA SOLN 45 ML (OCEAN) ONE (11:26)
[2017-09-21 11:30] VITALS: BP 76/48; PULSE 72; TEMP 36.8; O2SAT 100
[2017-09-21] MEDS ORDERED: SODIUM CHLORIDE 0.65% NA SOLN 45 ML (OCEAN) PRN (11:30)
--- NOTE | 2017-09-21 12:35 | NEPHROLOGY CONSULTATION ---
DATE OF CONSULTATION: 09/21/2017 RENAL CONSULTATION FOR: [facility]. PROBLEM: End-stage renal disease. SUBJECTIVE: I was asked to see Mr. Cabrera for assistance in the management of his current wound infection and more specifically for the continued management of his end-stage renal disease with dialysis. Mr. Cabrera is a 72-year-old gentleman well known to me. I have been his education intern for about a year and 3/4. I manage his outpatient dialysis and provide a certain amount of his primary care need, although his primary care physician has been Dr. Sarthak rGacia. Dr. Gracia will be retiring and primary care is apparently being transferred to Dr. John Calles. Mr. Cabrera has a history of longstanding poorly controlled adult onset diabetes mellitus associated with morbid obesity. His diabetes has been associated with diabetic retinopathy, generalized atherosclerotic cardiovascular disease, to some extent, nephropathy which is presumably multifactorial. Additionally, he has a history of atrial fibrillation for which he has been anticoagulated with Coumadin. He has a history of a presumed autonomic insufficiency. In the past, he has been on midodrine in an effort to support his blood pressure. Mr. Cabrera has a history of chronic obstructive pulmonary disease, at least in part caused by or aggravated by his morbid obesity. He has cor pulmonale. His endstage renal disease is multifactorial and likely related to his history of diabetes mellitus and his history of hypertension, although that is no longer present. Other factors include obesity as well as pulmonary hypertension and a "cardiorenal syndrome." He has been on maintenance dialysis since 2007. As noted, he was switched to my care about a year and 3/4 ago. Complications of his end-stage renal disease have included a secondary anemia, which is well controlled with erythrocyte-stimulating agents. Additionally, he has had secondary hyperparathyroidism, which is likely well controlled. Other medical issues include multiple problems and complications of lower extremity wounds for which he has been seen on a regular basis at the [facility]. He has had admissions here for generalized weakness. At one point, it was presumed that bradycardia was continuing to that weakness. A pacemaker was placed in October of 2016. However, it has made little difference in his blood pressure or symptoms of weakness. Additionally, he has had multiple admissions for problems related to lower extremity infections. He is regularly dialyzed at [facility] in [place], he is dialyzed 3 times a week using an Optiflux 200 dialyzer with a blood flow rate of 500 and a dialysate flow rate of 800. He uses a 2 potassium bath. His bicarbonate bath is 37 and his sodium bath 140. We used 15 gauge needles in both arterial and venous sides of the fistula. His fistula has been problematic in the past and when it has given his difficulties, Dr. Aguirre or vascular surgeons at [facility] have intervened. More recently, he has been seen at the wound clinic because of an ulceration on the lateral aspect of the ball of his left foot. This has been debrided once or twice a week at the wound clinic. He has had no shaking chills or fevers. However, recent cultures were done at the wound clinic. He grew out an apparent highly resistant E. coli. Apparently, IV antibiotic therapy has been recommended until the ulcer shows significant signs of improvement. He is seen regularly by Dr. Raymond who was recommended both ertapenem and vancomycin, pending further culture results. He is also recommended an MRI or CT scan of the patient's foot to better define the extent of his left foot process. Apparently, attempts were made to transfer Mr. Cabrera directly to [facility], but a bed was not immediately available and it was felt that the need to start IV antibiotics was critical at this point and therefore he was admitted here. He has already been seen by social service to plan for his transfer. CURRENT OUTPATIENT MEDICATIONS: Include Tylenol 325 mg 2 q. 6 hours p.r.n. pain or fever, Zyloprim 100 mg daily, aspirin 81 mg daily, PhosLo 667 mg 4 tablets with each meal and 2 with snacks, Sensipar 30 mg daily, gabapentin 100 mg daily, oxygen at a rate of 4 liters a minute, Toujeo 60 units subQ each morning as well as NovoLog via sliding scale, levothyroxine 50 mcg daily, a multivitamin daily, MiraLax 17 grams each morning, simvastatin 40 mg at bedtime and he also was on Coumadin on the dose of 5 mg daily with prothrombin times within range. ALLERGIES: No known medication allergies. The remainder of his past medical history, family history, social history and review of systems appears on previous medical admission note and will not be repeated. OBJECTIVE: GENERAL: On physical exam at the current time, Mr. Cabrera appears about the same. He is a morbidly obese gentleman who appears to be his stated age of 72. His appearance is somewhat unkempt. When seen by me, he had a minimal temperature of 37.3, his blood pressure 78/47 with a pulse of 75 and regular, respiratory rate 18, and his pulse ox 97% on 4 liters of oxygen via nasal cannula. SKIN: Shows normal skin turgor. He has changes of venous stasis dermatitis on his lower extremities. He has changes of seborrheic keratoses on his scalp and face. He has marked dry skin with scaling and flaking on his distal lower extremities. He has a large ulcer on the lateral aspect of the ball of his foot. It appears to be weeping a seropurulent fluid. He has a scar beneath the distal left clavicle from his pacemaker, which is palpable at that site. He has a right antecubital scar from the creation of his right upper arm AV fistula and he has multiple dialysis needle tract henry over the fistula. LYMPHATICS: Show no palpable adenopathy. There is no evidence of lymphangitis. HEAD: Normal. EYES: Grossly normal. The ocular fundi were not examined. EARS, NOSE, MOUTH AND THROAT: Unremarkable. His oral mucous membranes are moist. NECK: Supple. There is no obvious jugular venous distention, but the exam is limited by his body habitus. I hear no carotid bruit and there is no thyromegaly. CHEST: Shows diminished breath sounds throughout, particularly at the bases and diaphragms are elevated, related to his body habitus. He has no wheezes, rales or rhonchi. His pacemaker is palpable beneath the distal left clavicle. CARDIAC: Shows an irregular rhythm with the rate of about 68. He has a grade 3/6 systolic murmur at the base radiating toward the neck. I hear no other murmur or gallop. ABDOMEN: Morbidly obese, it is nontender. Bowel sounds are present. I hear no abdominal bruits. EXTREMITIES: Show 1-2+ hard lower extremity edema with the scaly skin changes and changes of venous stasis dermatitis, described above as well as the ulcer. His femoral pulses are difficult to feel. I do not feel pedal pulses. Tissue perfusion; however, appears to be normal based, on normal capillary refill both fingers and toes. NEUROLOGIC: Shows a decrease in protective sensation in his feet. He has no lateralizing changes. PERTINENT LABORATORY WORK: From today shows a white count of 8150 with 85.8% neutrophils, 5.9% lymphocytes, 5.0% monocytes, 2.7% eosinophils and 0.4% basophils. His hemoglobin is 12.3, hematocrit 32.0, his platelet count 233,000. His prothrombin time is 18.1 with an INR of 1.7. His clinical chemistries show a sodium of 133 mmol/L, potassium 4.3 mmol/L, chloride 93 mmol/L, and CO2 content 34 mmol/L. His BUN is 28 and his creatinine 4.36. His blood sugars vary from 148-189 and his serum calcium is 7.88. ASSESSMENT: Mr. Cabrera has essentially end-stage renal disease. He is dialysis dependent for help in the management of not only symptomatic uremia, but also in the management of his fluids. His blood pressure is typically low but whether or not that is related to difficulty in measuring it because of the size of his arms or if it is true low. Nonetheless, he appears to have reasonably good tissue perfusion. He has a large ulcer that is culturing out a highly resistant Escherichia coli E. coli. He has been seen by Dr. Raymond and regular IV antibiotics have been recommended in the form of ertapenem and initially vancomycin. Plans are to transfer him to [place]. While here, he will need his regular dialysis treatments. RECOMMENDATIONS: IV antibiotics per Dr. Raymond with appropriate adjustment of his dose, particularly of vancomycin for his renal failure. It would be prudent to follow regular vancomycin trough levels to know how to dose that road. No other recommendation I will write for his routine dialysis treatments and support with erythrocyte-stimulating agents. He should continue with all of his usual outpatient meds.
--- NOTE | 2017-09-21 13:28 | Hospitalist Progress Note ---
Hospitalist Progress Note Date of Service Sep 21, 2017. (Tila Stock PA-C) Subjective Pt evaluation today including: conversation w/ patient, conversation w/ family , physical exam, chart review, lab review, review of studies, review of inpatient medication list Patient seen and evaluated. No acute events overnight. Has had long standing issues with his L foot wound. Denies pain due to peripheral neuropathy. Denies fever/chills. States he is generally weak/fatigued but not too far from baseline. Eating and drinking without difficulty. Breathing is at baseline and on chronic O2. Constitutional: No fever, No chills Respiratory: No cough, No shortness of breath Cardiovascular: No chest pain Abdomen: No pain, No nausea, No vomiting, No diarrhea, No constipation Male : + problem reported (anuric) Heme: No abnormal bleeding/bruising Skin: No rash (Tila Stock PA-C) Medications Current Inpatient Medications Medications (Trade) Dose Ordered Sig/[place] Route Start Time Stop Time Status Last Admin Dose Admin Acetaminophen (Tylenol Tab) 650 mg Q4H PRN PO 09/20/17 19:30 10/20/17 19:29 Allopurinol (Zyloprim Tab) 100 mg QAM PO 09/21/17 08:00 10/21/17 08:59 09/21/17 09:19 100 MG Aspirin (Ecotrin Tab) 81 mg QAM PO 09/21/17 08:00 10/21/17 08:59 09/21/17 09:17 81 MG Calcium Acetate (Phoslo Cap) 2,668 mg TIDM PO 09/21/17 08:00 10/21/17 07:59 09/21/17 12:04 2,668 MG Levothyroxine Sodium (Synthroid Tab) 50 mcg DAILYBB PO 09/21/17 06:30 10/21/17 06:59 09/21/17 06:37 50 MCG Multivitamins/ Minerals (Multivitamin W/ Minerals Tab) 1 tab QAM PO 09/21/17 08:00 10/21/17 08:59 09/21/17 09:18 1 TAB Polyethylene (Miralax Powder Packet) 17 gm QAM PO 09/21/17 08:00 10/21/17 08:59 09/21/17 09:15 17 GM Simvastatin (Zocor Tab) 40 mg QPM PO 09/20/17 21:00 10/20/17 20:59 09/20/17 21:44 40 MG Warfarin Sodium (Coumadin Tab) 5 mg HS PO 09/20/17 23:00 10/20/17 22:59 09/20/17 23:37 5 MG Insulin Aspart (novoLOG ASPART) SLIDING SCALE G... ACHS SC 09/20/17 21:00 10/20/17 20:59 09/21/17 12:12 8 UNITS Glucose (Glucose 40% Gel) 15-30 GRAMS 15 GRAMS... UD PRN PO 09/20/17 20:30 10/20/17 20:29 Glucose (Glucose Chew Tab) 4-8 Tablets 4 Tabl... UD PRN PO 09/20/17 20:30 10/20/17 20:29 Dextrose (Dextrose 50% 50ML Syringe) 25-50ML OF 50% DW IV FOR... UD PRN IV 09/20/17 20:30 10/20/17 20:29 Glucagon (Glucagon Inj) 1 mg UD PRN SQ 09/20/17 20:30 10/20/17 20:29 Calcium Acetate (Phoslo Cap) 2,001 mg UD PRN PO 09/20/17 22:15 10/20/17 22:14 09/20/17 22:10 2,001 MG Calcium Acetate (Phoslo Cap) 1,334 mg UD PRN PO 09/20/17 22:45 10/20/17 22:44 Cinacalcet (Sensipar) 60 mg HS PO 09/21/17 22:00 10/21/17 21:59 09/20/17 23:37 60 MG Ertapenem (Consult) 1 ea UD PRN N/A 09/20/17 23:30 10/20/17 23:29 Vancomycin HCl (Consult) 1 ea UD PRN N/A 09/20/17 23:30 10/20/17 23:29 Ertapenem 500 mg/ Sodium Chloride 55 ml @ 110 mls/hr DAILY@2000 IV 09/21/17 20:00 10/01/17 19:59 Gabapentin (Neurontin Cap) 100 mg HS PO 09/21/17 22:00 10/21/17 21:59 Insulin Glargine (Toujeo Solostar) 60 units QAM SC 09/21/17 08:00 10/21/17 07:59 09/21/17 11:06 60 UNITS Sodium Chloride (Luis M. Cintron Nasal [place]) 2 sprays Q1H PRN NA 09/21/17 11:30 10/21/17 11:29 Heparin Sodium (Porcine) (Heparin Iv Bolus) 3,000 unit TODAY@0800 IV 09/22/17 08:00 09/22/17 08:01 Heparin Sodium (Porcine) (Heparin Iv Bolus) 500 unit Q1H IV 09/22/17 08:00 09/22/17 10:01 Epoetin Ramón (Procrit Inj) 20,000 units TODAY@0800 IV. 09/22/17 08:00 09/22/17 13:59 Sodium Chloride 1,000 ml @ 0 mls/hr Q0M PRN IV 09/22/17 08:00 09/22/17 23:59 (Tila Stock PA-C) Objective Vital Signs Date Time Temp Pulse Resp B/P (MAP) Pulse Ox O2 Delivery O2 Flow Rate FiO2 09/21/17 09:20 Nasal Cannula 4.0 09/21/17 07:42 37.3 75 18 78/47 (57) 97 Nasal Cannula 4.0 09/20/17 23:30 73 89/53 (65) 09/20/17 23:15 36.7 75 20 73/38 (50) 98 Nasal Cannula 4.0 09/20/17 21:02 36.8 71 18 92/55 99 Nasal Cannula 4.0 09/20/17 20:08 71 18 96 09/20/17 18:53 77 20 85/43 96 Room Air 09/20/17 18:22 77 09/20/17 18:10 77 18 82/44 99 Nasal Cannula 4.0 09/20/17 16:57 36.9 72 18 95 Nasal Cannula 3.0 (Tila Stock PA-C) Physical Exam General Appearance: WD/WN, no apparent distress, + obese ENT: hearing grossly normal Neck: supple, no JVD, trachea midline Respiratory/Chest: lungs clear, no respiratory distress, no accessory muscle use, + decreased breath sounds (bases b/l) Cardiovascular: regular rate, rhythm, no gallop, no murmur Abdomen: normal bowel sounds, non tender, soft Extremities: + pertinent finding (dry scaling lower extremities with a lot of flaking; L plantar wound with dressing that has dried drainage) Neurologic/Psychiatric: alert, oriented x 3 Skin: normal color, warm/dry (Tila Stock, MACK) Laboratory Results Last 24 Hours Test 09/20/17 17:35 09/20/17 21:32 09/20/17 23:17 09/21/17 05:45 White Blood Count 8.09 K/uL 8.15 K/uL Red Blood Count 3.34 M/uL 3.22 M/uL Hemoglobin 9.7 g/dL 9.3 g/dL Hematocrit 33.0 % 32.0 % Mean Corpuscular Volume 98.8 fL 99.4 fL Mean Corpuscular Hemoglobin 29.0 pg 28.9 pg Mean Corpuscular Hemoglobin Concent 29.4 g/dl 29.1 g/dl Platelet Count 232 K/uL 233 K/uL Mean Platelet Volume 9.9 fL 9.8 fL Neutrophils (%) (Auto) 78.9 % 85.8 % Lymphocytes (%) (Auto) 11.1 % 5.9 % Monocytes (%) (Auto) 6.9 % 5.0 % Eosinophils (%) (Auto) 2.5 % 2.7 % Basophils (%) (Auto) 0.4 % 0.4 % Neutrophils # (Auto) 6.38 K/uL 6.99 K/uL Lymphocytes # (Auto) 0.90 K/uL 0.48 K/uL Monocytes # (Auto) 0.56 K/uL 0.41 K/uL Eosinophils # (Auto) 0.20 K/uL 0.22 K/uL Basophils # (Auto) 0.03 K/uL 0.03 K/uL RDW Standard Deviation 64.3 fL 64.9 fL RDW Coefficient of Variation 17.8 % 17.8 % Immature Granulocyte % (Auto) 0.2 % 0.2 % Immature Granulocyte # (Auto) 0.02 K/uL 0.02 K/uL Prothrombin Time 18.6 SECONDS 18.7 SECONDS 18.1 SECONDS Prothromb Time International Ratio 1.8 1.8 1.7 Sodium Level 134 mmol/L 133 mmol/L Potassium Level 3.8 mmol/L 4.3 mmol/L Chloride Level 94 mmol/L 93 mmol/L Carbon Dioxide Level 36 mmol/L 34 mmol/L Anion Gap 5.0 mmol/L 6.0 mmol/L Blood Urea Nitrogen 19 mg/dl 28 mg/dl Creatinine 3.16 mg/dl 4.36 mg/dl Est Creatinine Clear Calc Drug Dose 30.5 ml/min 22.1 ml/min Estimated GFR () 21.6 14.6 Estimated GFR (Non- 18.6 12.6 BUN/Creatinine Ratio 6.0 6.5 Random Glucose 146 mg/dl 151 mg/dl Calcium Level 7.7 mg/dl 7.8 mg/dl Total Bilirubin 0.2 mg/dl Direct Bilirubin < 0.1 mg/dl Aspartate Amino Transf (AST/SGOT) 14 U/L Alanine Aminotransferase (ALT/SGPT) 22 U/L Alkaline Phosphatase 72 U/L Total Protein 7.4 gm/dl Albumin 3.3 gm/dl Bedside Glucose 189 mg/dl Activated Partial Thromboplast Time 38.9 SECONDS Partial Thromboplastin Ratio 1.5 (Tila Stock PA-C) Assessment and Plan This is a 72 yo m with ESRD, PAF, HTN, DMII, PAD with a non healing ulcer on the left foot concerning for osteomyelitis Left Foot Non-Healing Ulceration: - MRI pending to better evaluate for possibility of osteomyelitis - ID following - currently recommending Ertapenem and Vancomycin with renal dosing ESRD on HD: MWF - Nephrology following - appreciate assistance with dialysis - Phoslo TID and PRN Snacks - Sensipar 60 mg daily PAF on Warfarin/Pacemaker for Mario - Warfarin 5 mg daily - will leave current dose and assess INR tomorrow before adjusting Sleep Apnea/Obesity - Chronic Respiratory Failure: Baseline 4L NC - Declined CPAP - sleeps in recliner HTN/Hyperlipidemia: - ASA 81 mg - Simvastatin 40 mg T2DM with Peripheral Neuropathy/PAD: - Toujeo 60 unis SC AM and SSI - Gabapentin 100 mg HS Hypothyroidism: - Synthroid 50 mcg DVT Prophylaxis: Warfarin Disposition: - PT/OT evaluations - patient states he was considering SNF for possible PT services and to continue Abx treatment - Possible PICC line and HHS pending evaluatinos - pending on MRI and placement/ HHS arrangements likely D/C tomorrow Continued [facility] stay due to: multiple IV medications needed (Tila Stock, JADENC) i personally examined pt and verified all hurt points w A Montrell PAC feeling ok wants to go to [facility] [place] after discharge foot MRI pending at the time i see him vitals noted nad breathing unlabored chronic venous stasis changes diffusely diabetic foot infection - awaiting MRI, otherwise as above. depending on MRI results and ongoing ID recommendations will determine need for PICC etc (Jose Garcia D.O.)
--- NOTE | 2017-09-21 13:35 | Pharmacy Progress Note ---
Pharmacy Antibiotic Consult Date of Service: Sep 21, 2017. Pharmacy Dosing Scope Pharmacy is consulted to initiate Vanco/Invanz IV dosing therapy, order appropriate labs and adjust drug dose/frequency. Subjective The patient is a 72 year old male admitted on Sep 20, 2017 at 19:26. Objective Height (Feet): 5 Height (Inches): 10.00 Weight (Kilograms): 146.000 Lab Results (24hrs): Test 09/20/17 17:35 09/20/17 21:32 09/20/17 23:17 09/21/17 05:45 White Blood Count 8.09 K/uL (4.8-10.8) 8.15 K/uL (4.8-10.8) Red Blood Count 3.34 M/uL (4.7-6.1) 3.22 M/uL (4.7-6.1) Hemoglobin 9.7 g/dL (14.0-18.0) 9.3 g/dL (14.0-18.0) Hematocrit 33.0 % (42-52) 32.0 % (42-52) Mean Corpuscular Volume 98.8 fL (80-100) 99.4 fL (80-100) Mean Corpuscular Hemoglobin 29.0 pg (25-34) 28.9 pg (25-34) Mean Corpuscular Hemoglobin Concent 29.4 g/dl (32-36) 29.1 g/dl (32-36) Platelet Count 232 K/uL (130-400) 233 K/uL (130-400) Mean Platelet Volume 9.9 fL (7.4-10.4) 9.8 fL (7.4-10.4) Neutrophils (%) (Auto) 78.9 % 85.8 % Lymphocytes (%) (Auto) 11.1 % 5.9 % Monocytes (%) (Auto) 6.9 % 5.0 % Eosinophils (%) (Auto) 2.5 % 2.7 % Basophils (%) (Auto) 0.4 % 0.4 % Neutrophils # (Auto) 6.38 K/uL (1.4-6.5) 6.99 K/uL (1.4-6.5) Lymphocytes # (Auto) 0.90 K/uL (1.2-3.4) 0.48 K/uL (1.2-3.4) Monocytes # (Auto) 0.56 K/uL (0.11-0.59) 0.41 K/uL (0.11-0.59) Eosinophils # (Auto) 0.20 K/uL (0-0.5) 0.22 K/uL (0-0.5) Basophils # (Auto) 0.03 K/uL (0-0.2) 0.03 K/uL (0-0.2) RDW Standard Deviation 64.3 fL (36.4-46.3) 64.9 fL (36.4-46.3) RDW Coefficient of Variation 17.8 % (11.5-14.5) 17.8 % (11.5-14.5) Immature Granulocyte % (Auto) 0.2 % 0.2 % Immature Granulocyte # (Auto) 0.02 K/uL (0.00-0.02) 0.02 K/uL (0.00-0.02) Sodium Level 134 mmol/L (136-145) 133 mmol/L (136-145) Potassium Level 3.8 mmol/L (3.5-5.1) 4.3 mmol/L (3.5-5.1) Chloride Level 94 mmol/L (98-107) 93 mmol/L (98-107) Carbon Dioxide Level 36 mmol/L (21-32) 34 mmol/L (21-32) Anion Gap 5.0 mmol/L (3-11) 6.0 mmol/L (3-11) Blood Urea Nitrogen 19 mg/dl (7-18) 28 mg/dl (7-18) Creatinine 3.16 mg/dl (0.60-1.40) 4.36 mg/dl (0.60-1.40) Est Creatinine Clear Calc Drug Dose 30.5 ml/min 22.1 ml/min Estimated GFR () 21.6 14.6 Estimated GFR (Non- 18.6 12.6 BUN/Creatinine Ratio 6.0 (10-20) 6.5 (10-20) Random Glucose 146 mg/dl (70-99) 151 mg/dl (70-99) Calcium Level 7.7 mg/dl (8.5-10.1) 7.8 mg/dl (8.5-10.1) Total Bilirubin 0.2 mg/dl (0.2-1) Direct Bilirubin < 0.1 mg/dl (0-0.2) Aspartate Amino Transf (AST/SGOT) 14 U/L (15-37) Alanine Aminotransferase (ALT/SGPT) 22 U/L (12-78) Alkaline Phosphatase 72 U/L (45-117) Total Protein 7.4 gm/dl (6.4-8.2) Albumin 3.3 gm/dl (3.4-5.0) Bedside Glucose 189 mg/dl (70-99) Prothrombin Time 18.7 SECONDS (9.0-12.0) 18.1 SECONDS (9.0-12.0) Prothromb Time International Ratio 1.8 (0.9-1.1) 1.7 (0.9-1.1) Activated Partial Thromboplast Time 38.9 SECONDS (21.0-31.0) Partial Thromboplastin Ratio 1.5 Assessment & Plan Pt is admitted from wound clinic, per rec's of ID, Pt to be started on Vanco & Invanz. No Vanco random ordered for today, so will order a random lvl for . This will be a pre-HD lvl. This gentleman receives his HD on a MWF basis. No HD scheduled for today so I feel comfortable that he is retaining the dose of Vanco 2500 (17mg/kg) from yesterday @ 1848. No fever, no leukocytosis. U.O is not being reported. Pharmacy will continue to follow and will adjust dose/frequency as necessary. Thank you
--- NOTE | 2017-09-21 15:34 | DIAGNOSTIC IMAGING REPORT ---
L LOWER EXT NONJOINT W/O CLINICAL HISTORY: assess for osteomylitis infection TECHNIQUE: MRI multi axial acquisition COMPARISON STUDY: Left foot series 09/20/2017 FINDINGS: Moderate generalized cellulitis about the foot and forefoot region. No drainable abscess or collection. Mild deformities of the second through fifth distal metatarsals consistent with old healed fractures. The fifth metatarsal, however shows evidence for either nonunion or focal osteomyelitis here associated with a skin ulceration at the plantar aspect of the distal fifth metatarsal best seen sagittal image 24 of 29. It shows increased signal on the STIR sequence. This suggestive either of osteomyelitis and/or nonunion, although given the presence of the ulceration osteomyelitis must the diagnosis of exclusion. All remaining osseous structures show degenerative change throughout. No significant bone marrow replacing process is appreciated. IMPRESSION: 1. Focal bone marrow replacing process distal aspect fifth metatarsal. 2. This is associated with inflammatory tissue extending to an ulceration of the skin surface at the plantar aspect of the distal fifth metatarsal. 3. Although it is conceivable that components of this related to a nonunion, the additional findings suggest this most likely relates to focal osteomyelitis involving the distal fifth metatarsal. 4. Generalized cellulitis. 5. Generalized degenerative change throughout all remaining osseous structures. 6. No evidence for abscess collection or drainable collection The above report was generated using voice recognition software. It may contain grammatical, syntax or spelling errors. Electronically signed by: Ivan Juarez M.D. 09/21/2017 3:33 PM Dictated Date/Time: 09/21/2017 3:23 PM
[2017-09-21 16:00] VITALS: O2SAT 97
[2017-09-21] MEDS ORDERED: INSULIN GLARGINE SCH (16:00)
[2017-09-21 16:07] VITALS: BP 92/57; PULSE 78; TEMP 36.8; O2SAT 98
[2017-09-21] MEDS: ERTAPENEM IV 500 MG in SODIUM CHLORIDE 0.9% 50 ML IV SCH (20:07)
[2017-09-21] MEDS: CALCIUM ACETATE 667MG GELCAP PO PRN (20:46)
[2017-09-21] MEDS: GABAPENTIN 100 MG CAP PO SCH (20:47)
[2017-09-21] MEDS: SIMVASTATIN 40 MG TAB PO SCH (20:49)
[2017-09-21] MEDS: WARFARIN SOD 5 MG TAB PO SCH (20:49)
[2017-09-21] MEDS: CINACALCET HCL 60 MG PO SCH (20:50)
[2017-09-22] VITALS (26 sets, daily range): BP systolic 60–99; BP diastolic 30–59; PULSE 59–78; TEMP 36.4–36.8; O2SAT 100
[2017-09-22] MEDS: LEVOTHYROXINE 50 MCG TAB PO SCH (05:47)
[2017-09-22 07:28] LABS: INR 1.7 (0.9-1.1); PROTHROMBIN TIME (PATIENT) 17.8 SECONDS (9.0-12.0)
[2017-09-22] MEDS ORDERED: EPOETIN ALFA 20,000 UNITS/ML VIAL IV. SCH (08:00)
[2017-09-22] MEDS ORDERED: SODIUM CHLORIDE 0.9% 1000ML 1,000 ML IV PRN (08:00)
[2017-09-22] MEDS: HEPARIN SOD (PORCINE) 1000 UNIT/ML 10 ML VIAL IV SCH ×3 (08:00→10:00)
[2017-09-22] MEDS ORDERED: HEPARIN SOD (PORCINE) 1000 UNIT/ML 10 ML VIAL IV SCH (08:00)
[2017-09-22] MEDS: POLYETHYLENE (MIRALAX) 17 GM PACK PO SCH (08:17)
[2017-09-22] MEDS: ALLOPURINOL 100 MG TAB PO SCH (08:17)
[2017-09-22] MEDS: ASPIRIN 81 MG ECTAB PO SCH (08:17)
[2017-09-22] MEDS: CALCIUM ACETATE 667MG GELCAP PO SCH ×3 (08:17→16:46)
[2017-09-22] MEDS: INSULIN ASPART 100 UNITS/ML 3 ML PEN SC SCH ×4 (08:19→20:11)
[2017-09-22] MEDS: INSULIN GLARGINE 300 UNITS/ML INJ SC SCH (08:19)
--- NOTE | 2017-09-22 09:31 | Pharmacy Progress Note ---
Pharmacy Abx Dose Short Note Date of Service Sep 22, 2017. Assessment & Plan Assessment 72 year old male receiving Vancomycin/Invanz for treatment of nonhealing wound. ID consulted. Day # 3 of antimicrobial therapy. Plan Vancomycin * Random level of 19 mcg/mL is therapeutic. * Normally doses of 500-750 mg would be given for this Pre-HD level; however, pt is ~146 kg. * Based on obesity, give slightly higher dose - 1250 mg IV X 1 (8.5 mg/kg) * Goal random level: 15 to 20 mcg/mL * A random level ordered for: 09/25/17 prior to HD on Monday. Pharmacy will continue to follow and will adjust dose/frequency as necessary. Thank you.
[2017-09-22 09:34] LABS: INR 1.7 (0.9-1.1)
--- NOTE | 2017-09-22 11:53 | PROGRESS NOTE ---
DATE: 09/22/2017 RENAL PROGRESS NOTE SUBJECTIVE: Mr. Cabrera says that he is feeling relatively well. He denies having any significant pain in his left foot. He is nonweightbearing. He spends most of his time in his chair. He has no symptoms of uremia and no symptoms of volume overload. He has no lightheadedness or dizziness. He was seen today during dialysis treatment. Although, he is relatively hypotensive as usual, he is bright and alert and has answered all questions appropriately. He has no other specific complaints. His discharge for continued care is apparently questionable at this time. Apparently, he has used up most of his medical care correction days. OBJECTIVE: GENERAL: On physical exam when seen, he appears relatively well. He is obviously a morbidly obese gentleman. VITAL SIGNS: He is currently afebrile (36.7). He has been afebrile throughout his whole hospital stay. His blood pressure is 73/41 with a pulse of 65 and basically regular (? paced rhythm). Respiratory rate is 20, his pulse ox 100% on 4 liters of oxygen via nasal cannula. SKIN: Shows normal skin turgor. He has changes of venous stasis dermatitis on his distal lower extremities and also has significant crusting and scaly skin on his distal lower extremities. He has a bandage over the medial aspect of the distal left leg and he also has a bandage over his heel ulcer. These were not undressed for reexamination today. He has no evidence of spreading cellulitis; however, over his foot or leg. He has a right upper arm AV fistula. He has a scar beneath the distal left clavicle from the placement of his pacemaker. He does have some evidence of seborrheic keratosis on his face and scalp. LYMPHATICS: Show no palpable adenopathy or evidence of lymphangitis. HEAD: Normal. EYES: Grossly normal. The ocular fundi were not examined. EARS, NOSE, MOUTH AND THROAT: Unremarkable. Oral mucous membranes are moist. NECK: Supple. He has no jugular venous distention, but the exam is limited by his body habitus. There is no carotid bruit or thyromegaly. CHEST: Shows diminished breath sounds throughout, particularly at the bases. Diaphragms are elevated related to his body habitus. He has no wheezes, rales or rhonchi. CARDIAC: Shows a basically regular (likely paced) rhythm with a rate of about 64 or 65. There is a grade 3/6 systolic murmur at the base radiating toward the neck. He has no other murmur or gallop. ABDOMEN: Morbidly obese, it is nontender. Bowel sounds are present. He has no abdominal bruits. EXTREMITIES: Show 1-2+ hard lower extremity edema with scaly skin changes and obvious changes of venous stasis dermatitis as described. He has the ulceration and skin lesion on the medial aspect of his left leg as noted. I cannot feel his femoral pulses. I cannot feel pedal pulses. Tissue perfusion; however, appears normal with normal capillary refill of his fingers and toes. NEUROLOGIC: Shows diminished protective sensation in his feet. He has no lateralizing changes. PERTINENT LABORATORY WORK: Shows a white count today of 8150 with 85.8% neutrophils, 5.9% lymphocytes, 5.0% monocytes, 2.7% eosinophils and 0.4% basophils. His hemoglobin is 9.3, hematocrit 32.0, his platelet count 233,000. His blood sugars since admission have varied from a low of 136 to a high of 189. Additional clinical chemistries were not done today. A random vancomycin level was 19. IMAGING DATA: An MRI of his foot shows evidence of osteomyelitis involving his fifth metatarsal of the left foot. He has other inflammatory changes extending to and ulceration of the skin surface on the plantar aspect of the distal fifth metatarsal. He has other changes consistent with the cellulitis. ASSESSMENT: Probable osteomyelitis involving his fifth metatarsal in a gentleman with morbid obesity and longstanding poorly controlled diabetes with neuropathy. Hopefully, he will respond to antibiotics. Certainly, any consideration of amputation is problematic given the general appearance of his foot in the likelihood that further infectious and ischemic changes could result after surgery. PLAN: Hemodialysis is being carried out today. We will continue to have him on his usual Monday, Monday, Monday schedule. Antibiotics as ordered, although vancomycin dosing should be based on vancomycin blood levels. If he is able to be discharged to [facility], I can follow his progress there as well and arrange for his dialysis procedures. [facility] will be checking on Mr. Cabrera through the weekend. His next scheduled dialysis will be on September 25. Only other recommendation is to continue his use of nonsteroidal cream to his groin. I have taken the liberty of ordering that.
[2017-09-22] MEDS ORDERED: VANC1INJ94 IV (14:37)
[2017-09-22] MEDS ORDERED: ERTA1INJ IV (14:37)
--- NOTE | 2017-09-22 14:42 | Discharge Instructions ---
Discharge Instructions Date of Service Sep 22, 2017. Admission Reason for Admission: Cellulitis Of Left Foot Discharge Discharge Diagnosis / Problem: foot cellulitis and osteomyelitis Discharge Goals Goal(s): Increase independence, Improve disease control, Diagnostic testing, Therapeutic intervention Activity Recommendations Activity Level: Assistance Required (no weight bearing on infected foot at this time) . Additional Information Patient informed of condition: Yes Advance Directives: No DNR: No Level of Care: Skilled Communicable Disease: No Prognosis: Stable Oxygen at (LPM): 4 Instructions / Follow-Up Instructions / Follow-Up foot infection - cellulitis/osteomyelitis -due to high risk of poor healing with surgery, will try conservative management and close follow up first -continue invanz 500mg daily, give at least 6 hours prior to dialysis on HD days -continue vancomycin - currently at 1250mg after dialysis on dialysis days only - continue to follow levels and dose based on drug levels, but current dosing per [facility] protocol follow periodic CBC, BMP and PT/INR ongoing wound care of foot ongoing infectious disease follow up for duration of antibiotics ESRD-- M/W/F HD Current Hospital Diet Patient's current hospital diet: Diabetes Type 2 Diet, Renal Diet Discharge Diet Recommended Diet: Diabetes Type 2 Diet, Renal Diet Pending Studies Studies pending at discharge: no Medical Emergencies . Who to Call and When: Medical Emergencies: If at any time you feel your situation is an emergency, please call 911 immediately. . Non-Emergent Contact Non-Emergency issues call your: Primary Care Provider, Specialist (infectious disease) . . "Provider Documentation" section prepared by Jose Garcia. . Core Measure Problem Core Measures: None
--- NOTE | 2017-09-22 15:42 | Infectious Disease Progress Nt ---
Progress Note Date of Service Sep 22, 2017. Subjective Pt evaluation today including: conversation w/ patient, physical exam, chart review, lab review, review of studies, conversation w/ instructional consultant, review of inpatient medication list Patient feeling better today with less shortness of breath, no fever or chills. Foot pain 1/10 in intensity. No increase in drainage. Tolerating antibiotic without apparent difficulty. All Other Systems: Reviewed and Negative Medications Current Inpatient Medications Medications (Trade) Dose Ordered Sig/[place] Route Start Time Stop Time Status Last Admin Dose Admin Acetaminophen (Tylenol Tab) 650 mg Q4H PRN PO 09/20/17 19:30 10/20/17 19:29 Allopurinol (Zyloprim Tab) 100 mg QAM PO 09/21/17 08:00 10/21/17 08:59 09/22/17 08:17 100 MG Aspirin (Ecotrin Tab) 81 mg QAM PO 09/21/17 08:00 10/21/17 08:59 09/22/17 08:17 81 MG Calcium Acetate (Phoslo Cap) 2,668 mg TIDM PO 09/21/17 08:00 10/21/17 07:59 09/22/17 08:17 2,668 MG Levothyroxine Sodium (Synthroid Tab) 50 mcg DAILYBB PO 09/21/17 06:30 10/21/17 06:59 09/22/17 05:47 50 MCG Multivitamins/ Minerals (Multivitamin W/ Minerals Tab) 1 tab QAM PO 09/21/17 08:00 10/21/17 08:59 09/21/17 09:18 1 TAB Polyethylene (Miralax Powder Packet) 17 gm QAM PO 09/21/17 08:00 10/21/17 08:59 09/22/17 08:17 17 GM Simvastatin (Zocor Tab) 40 mg QPM PO 09/20/17 21:00 10/20/17 20:59 09/21/17 20:49 40 MG Warfarin Sodium (Coumadin Tab) 5 mg HS PO 09/20/17 23:00 10/20/17 22:59 09/21/17 20:49 5 MG Insulin Aspart (novoLOG ASPART) SLIDING SCALE G... ACHS SC 09/20/17 21:00 10/20/17 20:59 09/22/17 08:19 5 UNITS Glucose (Glucose 40% Gel) 15-30 GRAMS 15 GRAMS... UD PRN PO 09/20/17 20:30 10/20/17 20:29 Glucose (Glucose Chew Tab) 4-8 Tablets 4 Tabl... UD PRN PO 09/20/17 20:30 10/20/17 20:29 Dextrose (Dextrose 50% 50ML Syringe) 25-50ML OF 50% DW IV FOR... UD PRN IV 09/20/17 20:30 10/20/17 20:29 Glucagon (Glucagon Inj) 1 mg UD PRN SQ 09/20/17 20:30 10/20/17 20:29 Calcium Acetate (Phoslo Cap) 2,001 mg UD PRN PO 09/20/17 22:15 10/20/17 22:14 09/21/17 20:46 2,001 MG Calcium Acetate (Phoslo Cap) 1,334 mg UD PRN PO 09/20/17 22:45 10/20/17 22:44 Cinacalcet (Sensipar) 60 mg HS PO 09/21/17 22:00 10/21/17 21:59 09/21/17 20:50 60 MG Ertapenem (Consult) 1 ea UD PRN N/A 09/20/17 23:30 10/20/17 23:29 Vancomycin HCl (Consult) 1 ea UD PRN N/A 09/20/17 23:30 10/20/17 23:29 Ertapenem 500 mg/ Sodium Chloride 55 ml @ 110 mls/hr DAILY@1999 IV 09/21/17 20:00 10/01/17 19:59 09/21/17 20:07 110 MLS/HR Gabapentin (Neurontin Cap) 100 mg HS PO 09/21/17 22:00 10/21/17 21:59 09/21/17 20:47 100 MG Insulin Glargine (Toujeo Solostar) 60 units QAM SC 09/21/17 08:00 10/21/17 07:59 09/22/17 08:19 60 UNITS Sodium Chloride ([place] Nasal [place]) 2 sprays Q1H PRN NA 09/21/17 11:30 10/21/17 11:29 Sodium Chloride 1,000 ml @ 0 mls/hr Q0M PRN IV 09/22/17 08:00 09/22/17 23:59 Vancomycin HCl 1250 mg/Sodium Chloride 275 ml @ 125 mls/hr TODAY@1600 IV 09/22/17 16:00 09/22/17 18:11 Ketoconazole (Nizoral 2% Crm) 1 appln BID EXT 09/22/17 20:00 10/02/17 19:59 Objective Vital Signs Date Time Temp Pulse Resp B/P (MAP) Pulse Ox O2 Delivery O2 Flow Rate FiO2 09/22/17 14:45 61 69/35 09/22/17 14:30 67 70/41 09/22/17 14:15 66 63/38 09/22/17 14:00 69 71/35 09/22/17 13:45 59 60/30 09/22/17 13:30 66 67/35 09/22/17 13:15 65 62/34 09/22/17 13:00 64 67/36 09/22/17 12:45 69 72/35 09/22/17 12:30 61 69/33 09/22/17 12:15 65 66/32 09/22/17 12:00 71 66/31 09/22/17 11:45 75 67/34 09/22/17 11:30 62 70/32 09/22/17 11:15 67 64/35 09/22/17 11:00 68 65/41 09/22/17 10:45 68 69/41 09/22/17 10:28 65 73/41 09/22/17 07:55 Nasal Cannula 4.0 Humidified Oxygen 09/22/17 07:17 36.7 68 20 99/56 (70) 100 Nasal Cannula 4.0 09/22/17 00:42 78 96/59 (71) 09/22/17 00:05 Nasal Cannula 4.0 09/22/17 00:05 76/48 (57) 09/22/17 00:01 36.8 78 20 75/44 (54) 100 Nasal Cannula 4.0 09/21/17 16:07 36.8 78 18 92/57 (69) 98 Nasal Cannula 4.0 09/21/17 16:00 97 Nasal Cannula 4.0 Physical Exam General Appearance: WD/WN, no apparent distress, + obese Eyes: normal inspection, EOMI, sclerae normal ENT: normal ENT inspection, pharynx normal Neck: supple, no adenopathy, trachea midline Respiratory/Chest: chest non-tender, lungs clear, normal breath sounds, no respiratory distress Cardiovascular: regular rate, rhythm, no gallop, no murmur Abdomen: normal bowel sounds, non tender, soft, no organomegaly Extremities: non-tender, + inflammation, + swelling Neurologic/Psychiatric: alert, oriented x 3 Skin: normal color, no rash, + pertinent finding (Left foot wound slightly improved) Lymphatic: no adenopathy Laboratory Results Last 24 Hours Test 09/21/17 16:05 09/21/17 19:49 09/22/17 07:02 09/22/17 07:32 Bedside Glucose 164 mg/dl 136 mg/dl 140 mg/dl Prothrombin Time 17.8 SECONDS Prothromb Time International Ratio 1.7 Random Vancomycin Level 19.0 mcg/ml Test 09/22/17 09:10 Prothrombin Time 18.0 SECONDS Prothromb Time International Ratio 1.7 Assessment and Plan 72-year-old male with diabetes mellitus, peripheral vascular disease, severe venous stasis disease, now with worsening left foot ulceration with cultures positive for highly resistant E coli. Recommend patient be treated with ertapenem and vancomycin for 4-6 weeks depending on clinical response. Will follow.
[2017-09-22] MEDS ORDERED: VANCOMYCIN INJ 1,250 MG in SODIUM CHLORIDE 0.9% 250ML 250 ML IV SCH (16:00)
[2017-09-22] MEDS: CEROVITE ADV FORMULA TAB PO SCH (16:46)
--- NOTE | 2017-09-22 18:04 | Progress Note ---
Subjective Date of Service: Sep 22, 2017. Subjective Pt evaluation today including: conversation w/ patient, physical exam, chart review, lab review, review of inpatient medication list feeling ok would like avoid surgery if at all possible nephrology notes appreciated deep peripheral IV started no other new complaints, can't feel feet so doesn't have pain was not able to to go [facility] but [facility] accepting Problem List Medical Problems: (1) Ambulatory dysfunction Status: Acute (2) Anemia Status: Acute (3) Failure of outpatient treatment Status: Acute (4) Febrile illness Status: Acute (5) Infected ulcer of skin Status: Acute (6) Infection of right foot Status: Acute (7) Infection of right hand Status: Acute (8) Leukocytosis Status: Acute (9) Superficial injury of right index finger with infection Status: Acute (10) Ulcers of both lower extremities Status: Acute Review of Systems all other ROS otherwise negative except for as above Objective Vital Signs Date Time Temp Pulse Resp B/P (MAP) Pulse Ox O2 Delivery O2 Flow Rate FiO2 09/22/17 15:48 36.6 67 20 85/57 (66) 100 Nasal Cannula 4.0 09/22/17 15:30 36.4 66 82/42 (55) 09/22/17 15:00 65 75/39 09/22/17 14:45 61 69/35 09/22/17 14:30 67 70/41 09/22/17 14:15 66 63/38 09/22/17 14:00 69 71/35 09/22/17 13:45 59 60/30 09/22/17 13:30 66 67/35 09/22/17 13:15 65 62/34 09/22/17 13:00 64 67/36 09/22/17 12:45 69 72/35 09/22/17 12:30 61 69/33 09/22/17 12:15 65 66/32 09/22/17 12:00 71 66/31 09/22/17 11:45 75 67/34 09/22/17 11:30 62 70/32 09/22/17 11:15 67 64/35 09/22/17 11:00 68 65/41 09/22/17 10:45 68 69/41 09/22/17 10:28 65 73/41 09/22/17 10:15 36.5 72 71/41 (51) 09/22/17 07:55 Nasal Cannula 4.0 Humidified Oxygen 09/22/17 07:17 36.7 68 20 99/56 (70) 100 Nasal Cannula 4.0 09/22/17 00:42 78 96/59 (71) 09/22/17 00:05 Nasal Cannula 4.0 09/22/17 00:05 76/48 (57) 09/22/17 00:01 36.8 78 20 75/44 (54) 100 Nasal Cannula 4.0 Physical Exam General Appearance: no apparent distress Eyes: EOMI ENT: hearing grossly normal Neck: trachea midline Respiratory/Chest: no respiratory distress, no accessory muscle use Extremities: normal range of motion 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/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, alert, normal mood/affect Skin: normal color, warm/dry Laboratory Results Last 24 Hours Test 09/21/17 19:49 09/22/17 07:02 09/22/17 07:32 09/22/17 09:10 Bedside Glucose 136 mg/dl 140 mg/dl Prothrombin Time 17.8 SECONDS 18.0 SECONDS Prothromb Time International Ratio 1.7 1.7 Random Vancomycin Level 19.0 mcg/ml Test 09/22/17 16:29 Bedside Glucose 135 mg/dl Assessment and Plan This is a 72 yo m with ESRD, PAF, HTN, DMII, PAD with a non healing ulcer on the left foot concerning for osteomyelitis Left Foot Non-Healing Ulceration w cellulitis and osteomyelitis - vanco and ertapenem - ongoing wound care - surgical management only if necessary ESRD on HD: MWF - Nephrology following - appreciate assistance with dialysis - Phoslo TID and PRN Snacks - Sensipar 60 mg daily - HD today PAF on Warfarin/Pacemaker for Mario - Warfarin 5 mg daily - continue to follow Sleep Apnea/Obesity - Chronic Respiratory Failure: Baseline 4L NC - Declines CPAP - sleeps in recliner HTN/Hyperlipidemia: continue: - ASA 81 mg - Simvastatin 40 mg T2DM with Peripheral Neuropathy/PAD: sugars reasonable - Toujeo 60 unis SC AM and SSI - Gabapentin 100 mg HS Hypothyroidism: - Synthroid 50 mcg DVT Prophylaxis: Warfarin Disposition: - HSR tomorrow Continued [facility] stay due to: multiple IV medications needed
[2017-09-22] MEDS: CINACALCET HCL 60 MG PO SCH (20:11)
[2017-09-22] MEDS: WARFARIN SOD 5 MG TAB PO SCH (20:12)
[2017-09-22] MEDS: SIMVASTATIN 40 MG TAB PO SCH (20:13)
[2017-09-22] MEDS: GABAPENTIN 100 MG CAP PO SCH (20:13)
[2017-09-22] MEDS: KETOCONAZOLE 2% CR 15 GM TUBE EXT SCH (20:14)
[2017-09-22] MEDS: ERTAPENEM IV 500 MG in SODIUM CHLORIDE 0.9% 50 ML IV SCH (20:17)
[2017-09-23] VITALS: O2SAT 100
[2017-09-23 00:01] VITALS: BP 85/48; PULSE 69; TEMP 36.4; O2SAT 100
[2017-09-23 07:21] VITALS: BP 82/42; PULSE 64; TEMP 36.9; O2SAT 100
[2017-09-23] MEDS: POLYETHYLENE (MIRALAX) 17 GM PACK PO SCH (08:08)
[2017-09-23] MEDS: LEVOTHYROXINE 50 MCG TAB PO SCH (08:10)
[2017-09-23] MEDS: CALCIUM ACETATE 667MG GELCAP PO SCH ×2 (08:11→11:40)
[2017-09-23] MEDS: KETOCONAZOLE 2% CR 15 GM TUBE EXT SCH (08:11)
[2017-09-23] MEDS: ASPIRIN 81 MG ECTAB PO SCH (08:12)
[2017-09-23] MEDS: ALLOPURINOL 100 MG TAB PO SCH (08:12)
[2017-09-23 08:15] LABS: INR 1.7 (0.9-1.1); PROTHROMBIN TIME (PATIENT) 17.5 SECONDS (9.0-12.0)
[2017-09-23] MEDS: INSULIN ASPART 100 UNITS/ML 3 ML PEN SC SCH ×2 (09:13→12:39)
[2017-09-23] MEDS: INSULIN GLARGINE 300 UNITS/ML INJ SC SCH (09:13)
--- NOTE | 2017-09-23 10:25 | Nephrology Progress Note ---
Nephrology Progress Note Date of Service Sep 23, 2017. Chief Complaint ESRD Subjective Mr. Cabrera was seen & examined in his hospital room this morning. He dialyzed for 4.5 hours yesterday. SBP remained in the mid 70's throughout treatment. Patient was asymptomatic. There were no complications. R upper arm AVF w/ + bruit this am. Mr. Cabrera hopes to transfer to [facility] today. Review of Systems Constitutional: No fever Cardiovascular: No chest pain Respiratory: No dyspnea at rest A complete review of systems was performed. Pertinent positives are noted above. All other systems are negative. Vital Signs Last 8 Hrs Date Time Temp Pulse Resp B/P (MAP) Pulse Ox O2 Delivery O2 Flow Rate FiO2 09/23/17 07:21 36.9 64 16 82/42 (55) 100 4.0 Last Recorded Weight Weight (Kilograms): 148.700 Physical Exam General Appearance: no apparent distress Head: atraumatic Eyes: PERRL, EOMI Neck: no adenopathy Respiratory/Chest: lungs clear, no respiratory distress Cardiovascular: regular rate, rhythm Abdomen/GI: normal bowel sounds, non tender, soft Extremities/Musculoskelatal: + pertinent finding (both feet wrapped) Neurologic/Psych: alert, oriented x 3 Family History Patient reports no known family medical history. Social History Smoking Status: Never smoker Smokeless Tobacco Use: No Alcohol Use: none Drug Use: none Marital Status: Housing Status: lives with family Occupation: retired Laboratory Results Past 24 Hours Test 09/22/17 16:29 09/22/17 20:06 09/23/17 07:33 09/23/17 07:40 Bedside Glucose 135 mg/dl (70-99) 167 mg/dl (70-99) 130 mg/dl (70-99) Prothrombin Time 17.5 SECONDS (9.0-12.0) Prothromb Time International Ratio 1.7 (0.9-1.1) Allergies Coded Allergies: No Known Allergies (Verified , 09/20/17) Medications Current Inpatient Medications Medications (Trade) Dose Ordered Sig/[place] Route Start Time Stop Time Status Last Admin Dose Admin Acetaminophen (Tylenol Tab) 650 mg Q4H PRN PO 09/20/17 19:30 10/20/17 19:29 Allopurinol (Zyloprim Tab) 100 mg QAM PO 09/21/17 08:00 10/21/17 08:59 09/23/17 08:12 100 MG Aspirin (Ecotrin Tab) 81 mg QAM PO 09/21/17 08:00 10/21/17 08:59 09/23/17 08:12 81 MG Calcium Acetate (Phoslo Cap) 2,668 mg TIDM PO 09/21/17 08:00 10/21/17 07:59 09/23/17 08:11 2,668 MG Levothyroxine Sodium (Synthroid Tab) 50 mcg DAILYBB PO 09/21/17 06:30 10/21/17 06:59 09/22/17 05:47 50 MCG Multivitamins/ Minerals (Multivitamin W/ Minerals Tab) 1 tab QAM PO 09/21/17 08:00 10/21/17 08:59 09/22/17 16:46 1 TAB Polyethylene (Miralax Powder Packet) 17 gm QAM PO 09/21/17 08:00 10/21/17 08:59 09/23/17 08:08 17 GM Simvastatin (Zocor Tab) 40 mg QPM PO 09/20/17 21:00 10/20/17 20:59 09/22/17 20:13 40 MG Warfarin Sodium (Coumadin Tab) 5 mg HS PO 09/20/17 23:00 10/20/17 22:59 09/22/17 20:12 5 MG Insulin Aspart (novoLOG ASPART) SLIDING SCALE G... ACHS SC 09/20/17 21:00 10/20/17 20:59 09/23/17 09:13 5 UNITS Glucose (Glucose 40% Gel) 15-30 GRAMS 15 GRAMS... UD PRN PO 09/20/17 20:30 10/20/17 20:29 Glucose (Glucose Chew Tab) 4-8 Tablets 4 Tabl... UD PRN PO 09/20/17 20:30 10/20/17 20:29 Dextrose (Dextrose 50% 50ML Syringe) 25-50ML OF 50% DW IV FOR... UD PRN IV 09/20/17 20:30 10/20/17 20:29 Glucagon (Glucagon Inj) 1 mg UD PRN SQ 09/20/17 20:30 10/20/17 20:29 Calcium Acetate (Phoslo Cap) 2,001 mg UD PRN PO 09/20/17 22:15 10/20/17 22:14 09/21/17 20:46 2,001 MG Calcium Acetate (Phoslo Cap) 1,334 mg UD PRN PO 09/20/17 22:45 10/20/17 22:44 Cinacalcet (Sensipar) 60 mg HS PO 09/21/17 22:00 10/21/17 21:59 09/22/17 20:11 60 MG Ertapenem (Consult) 1 ea UD PRN N/A 09/20/17 23:30 10/20/17 23:29 Vancomycin HCl (Consult) 1 ea UD PRN N/A 09/20/17 23:30 10/20/17 23:29 Ertapenem 500 mg/ Sodium Chloride 55 ml @ 110 mls/hr DAILY@1999 IV 09/21/17 20:00 10/01/17 19:59 09/22/17 20:17 110 MLS/HR Gabapentin (Neurontin Cap) 100 mg HS PO 09/21/17 22:00 10/21/17 21:59 09/22/17 20:13 100 MG Insulin Glargine (Toujeo Solostar) 60 units QAM SC 09/21/17 08:00 10/21/17 07:59 09/23/17 09:13 60 UNITS Sodium Chloride ([place] Nasal [place]) 2 sprays Q1H PRN NA 09/21/17 11:30 10/21/17 11:29 Ketoconazole (Nizoral 2% Crm) 1 appln BID EXT 09/22/17 20:00 10/02/17 19:59 09/23/17 08:11 1 APPLN Impression # ESRD on IHD # AODM w/ retinopathy # ASCVD # Atrial fibrillation # Bradycardia s/p pacemaker # JORJE # Anemia # TCCA s/p TURBT # sHPT # Osteomyelitis 5th metatarsal L foot Recommendations END STAGE RENAL DISEASE: -- Volume status and electrolyte balance are acceptable at this time. No acute indication for HD today ID: -- Continue broad spectrum antibiotic as per ID business info consultant
[2017-09-23] MEDS: CEROVITE ADV FORMULA TAB PO SCH (10:30)
--- NOTE | 2017-09-23 12:23 | Discharge Summary ---
Discharge Summary Date of Service Sep 23, 2017. Discharge Summary Admission Date: Sep 20, 2017 at 19:26 Discharge Date: Sep 23, 2017 Discharge Disposition: Rehab Principal Diagnosis: L Foot Osteomyelitis and Cellulitis with Non-Healing Ulcer Problems/Secondary Diagnoses: 1. ESRD on HD since 2007 2. HTN 3. HLD 4. DMII 5. PAD 6. Diabetic Retinopathy/Neuropathy 7. Chronic Non-Healing L Plantar Aspect Foot Ulcer 8. Paroxysmal Atrial Fibrillation Immunizations: Have You Had Influenza Vaccine: Unknown History of Tetanus Vaccine?: Unknown History of Pneumococcal: Unknown History of Hepatitis B Vaccine: Unknown Procedures: L LOWER EXT NONJOINT W/O FINDINGS: Moderate generalized cellulitis about the foot and forefoot region. No drainable abscess or collection. Mild deformities of the second through fifth distal metatarsals consistent with old healed fractures. The fifth metatarsal, however shows evidence for either nonunion or focal osteomyelitis here associated with a skin ulceration at the plantar aspect of the distal fifth metatarsal best seen sagittal image 24 of 29. It shows increased signal on the STIR sequence. This suggestive either of osteomyelitis and/or nonunion, although given the presence of the ulceration osteomyelitis must the diagnosis of exclusion. All remaining osseous structures show degenerative change throughout. No significant bone marrow replacing process is appreciated. IMPRESSION: 1. Focal bone marrow replacing process distal aspect fifth metatarsal. 2. This is associated with inflammatory tissue extending to an ulceration of the skin surface at the plantar aspect of the distal fifth metatarsal. 3. Although it is conceivable that components of this related to a nonunion, the additional findings suggest this most likely relates to focal osteomyelitis involving the distal fifth metatarsal. 4. Generalized cellulitis. 5. Generalized degenerative change throughout all remaining osseous structures. 6. No evidence for abscess collection or drainable collection Consultations: 1. Nephrology 2. Infectious Disease Medication Reconciliation New Medications: Ertapenem Sodium (Invanz) 1 Gm Inj 500 MG IV DAILY, #30 VIAL give at least 6 hours prior to dialysis on HD days Vancomycin HCl in Sodium Chlor (VANCOMYCIN in NSS) 1 Inj Inj 1250 MG IV UD, #30 VIAL dose 1250mg after dialysis on dialysis days only; continue to titrate dose based on drug levels Continued Medications: Acetaminophen (Tylenol) 325 Mg Tab 650 MG PO Q6 PRN for Pain or Fever, TAB Allopurinol (Zyloprim) 100 Mg Tab 100 MG PO QAM, TAB Aspirin (Aspirin Ec) 81 Mg Tab 81 MG PO QAM Calcium Acetate (Phoslo 667 Mg) 667 Mg Cap 4 TABS PO TIDM, 0 Refills take 4 caps with each meal Calcium Acetate (Phoslo 667 Mg) 667 Mg Cap 2 CAP PO UD with snacks Cinacalcet (Sensipar) 30 Mg Tab 60 MG PO DAILY WITH EVENING MEAL Gabapentin (Neurontin) 100 Mg Cap 100 MG PO DAILY, CAP Home O2 Therapy (Oxygen) Gas 4 LITERS NA CONTINOUS Insulin Aspart (Novolog) 100 Units/Ml Inj UNITS SQ ACHS SLIDING SCALE Insulin Glargine (Toujeo Solostar) 300 Unit/Ml Inj 60 UNITS SC QAM Levothyroxine Sodium (Levothyroxine Sodium) 50 Mcg Tab 50 MCG PO DAILYBB, #30 Multiple Vitamins W/ Minerals (Therems M) 1 Tab Tab 1 TAB PO QAM Polyethylene Glycol 3350 (Miralax) 1 Pow Pow 17 GM PO QAM Simvastatin (Zocor) 40 Mg Tab 40 MG PO QPM Warfarin Sodium (Coumadin) 5 Mg Tab 5 MG PO HS Discharge Exam Review of Systems: Constitutional: No fever, No chills Respiratory: No shortness of breath Cardiovascular: No chest pain Abdomen: No pain, No nausea, No vomiting, No diarrhea, No constipation Genitourinary - Male: + problem reported (anuric) Neurologic: + numbness/tingling (chronic - b/l lower extremities) Hematologic / Lymphatic: No abnormal bleeding/bruising Physical Exam: General Appearance: WD/WN, no apparent distress, + obese Eyes: sclerae normal ENT: hearing grossly normal Neck: supple, no JVD, trachea midline Respiratory/Chest: lungs clear, normal breath sounds, no respiratory distress, no accessory muscle use Cardiovascular: regular rate, rhythm, + systolic murmur Abdomen / GI: normal bowel sounds, non tender, soft Extremities: + pertinent finding (compressive wrap applied) Neurologic/Psychiatric: alert, oriented x 3 Skin: normal color, warm/dry Hospital Course ADMISSION: This is a 72 yo m with ESRD on HD, DMII, PAD, A fibb and HTN that is presenting to us with a worsening foot ulcer on his left lower extremity. The patient was admitted in mid may for a non healing wound on his left foot. The patient was treated with Vanco and Zosyn and transitioned to Keflex and has been following with ID and wound since the admission. The patient has had worsening in his ulceration over the past three weeks and when he went to follow up with Dr Raymond today and he was sent to the ED for evaluation. Recommendation was for treatment with Ertapenem. The patient states that it is not a painful however he has had worsening drainage from the site. The patient denies any abdominal pain, chest pain, SOB. He typically requires a walker in order to ambulate or his wheelchair. HOSPITAL COURSE: Mr. Cabrera was admitted for a Non-Healing L Plantar Aspect Foot Ulcer with Osteomyelitis and Cellulitis. He was followed by ID with recommendations to continue Ertapenem and Vancomycin for 4-6 weeks pending clinical course. Plan for conservative management at this time and only to undergo surgical intervention if necessary. Given PAD and other co-morbidities this is reasonable. He will need to continue to be followed by ID and wound care. An ultrasound guided peripheral line was placed in the L anterior forearm and should allow for 4-6 weeks of therapy. Decided against PICC/Midline due to risk of losing access and limitations due to fistula in RUE. If this line becomes faulty he may need to return to the [facility] for a new line. During admission he was dialyzed and currently labs and fluid balance appropriate. He is on his baseline O2 and sleeps in a recliner. Due to peripheral neuropathy he reports no pain at the ulceration site. Plan is for patient to go to [facility]. i personally examined pt and verified all hurt points w A Montrell PAC feeling ok ready to go to rehab vitals noted nad foot dressed no pallor or icterus foot cellulitis/ulcer/osteomyelitis -ertapenem, vanco, wound care, ongoing ID f/u -follow periodic CBC, BMP otherwise as above Total Time Spent: Greater than 30 minutes This includes examination of the patient, discharge planning, medication reconciliation, and communication with other providers. Discharge Instructions Please refer to the electronic Patient Visit Report (Discharge Instructions) for additional information. Additional Copies To Tin Flaherty M.D.; [facility]
[2017-09-23 12:28] VITALS: BP 82/42; PULSE 64; TEMP 36.9; O2SAT 100
== END 2017-09-23 13:00 | DRG 638 ==
LOC: C.EDB 16:47 → C.MS4W 19:26 → ENRESERV 19:40
PROVIDERS: ADMIT Hospitalist; ATTEND Family Medicine
DX: E11.69 Type 2 diabetes mellitus with other specified complication (principal); M86.9 Osteomyelitis, unspecified; I13.2 Hypertensive heart and chronic kidney disease with heart failure and with stage 5 chronic kidney disease, or end stage renal disease; Z68.42 Body mass index [BMI] 45.0-49.9, adult; L03.116 Cellulitis of left lower limb; J96.10 Chronic respiratory failure, unspecified whether with hypoxia or hypercapnia; N18.6 End stage renal disease; L97.529 Non-pressure chronic ulcer of other part of left foot with unspecified severity; I73.9 Peripheral vascular disease, unspecified; I50.9 Heart failure, unspecified; E11.22 Type 2 diabetes mellitus with diabetic chronic kidney disease; E11.40 Type 2 diabetes mellitus with diabetic neuropathy, unspecified; E11.319 Type 2 diabetes mellitus with unspecified diabetic retinopathy without macular edema; E11.622 Type 2 diabetes mellitus with other skin ulcer; I48.91 Unspecified atrial fibrillation; E78.5 Hyperlipidemia, unspecified; B96.20 Unspecified Escherichia coli [E. coli] as the cause of diseases classified elsewhere; M10.9 Gout, unspecified; E03.9 Hypothyroidism, unspecified; G47.33 Obstructive sleep apnea (adult) (pediatric); E66.01 Morbid (severe) obesity due to excess calories; Z79.01 Long term (current) use of anticoagulants; Z79.4 Long term (current) use of insulin; Z79.82 Long term (current) use of aspirin; Z79.899 Other long term (current) drug therapy; Z99.2 Dependence on renal dialysis; Z99.81 Dependence on supplemental oxygen; Z95.0 Presence of cardiac pacemaker